=== PATIENT | male | born 1980 | race Two or more races ===

== ENCOUNTER 2020-05-12 11:31 | Outpatient (REF) | payer OTHER, SELFPAY ==
[2020-05-12 13:36] LABS: Alanine Aminotransferase 22 U/L (0-40); Albumin Level 4.5 g/dL (3.5-5.0); Alkaline Phosphatase 97 U/L (39-117); Anion Gap 15 (12-20); Aspartate Amino Transferase 20 U/L (5-37); Bilirubin Total 0.7 mg/dL (0.0-1.0); Blood Urea Nitrogen 10 mg/dL (9-16); Calcium 9.4 mg/dL (8.4-10.2); Carbon Dioxide 23 mmol/L (22-29); Chloride 102 mmol/L (96-108); Cholesterol 302 mg/dL; Estimated Glomerular Filt Rate > 60; Glucose Fasting 87 mg/dL (60-99); HDL Cholesterol 45 mg/dL; Lipase 78 U/L (8-78); Potassium 4.5 mmol/l (3.3-5.1); Sodium 135 mmol/L (135-145); Total Protein 7.9 g/dL (6.5-8.0); Triglycerides 566 mg/dL
[2020-05-12 13:58] LABS: TSH reflex Free T4 0.63 mIU/mL (0.32-4.0)
[2020-05-17 19:09] LABS: Testosterone, Free 104.8 pg/mL (35.0-155.0); Testosterone, Total 337 ng/dL (250-1100)
== END 2020-05-12 11:32 | disposition home or self-care (01) ==
LOC: HO.LAB 11:31
PROVIDERS: PCP Physician Assistant; Visit Provider Physician Assistant
DX: R68.82 Decreased libido (principal); E78.1 Pure hyperglyceridemia; Z87.19 Personal history of other diseases of the digestive system
CPT/HCPCS: 80053; 80061; 83690; 84402; 84403; 84443

== ENCOUNTER 2020-06-10 06:28 | Outpatient (REF) | payer OTHER, SELFPAY | END 2020-06-10 06:29 | disposition home or self-care (01) | LOC: HO.LAB 06:28 | PROVIDERS: PCP Physician Assistant; Visit Provider Internal Medicine | DX: Z20.828 Contact with and (suspected) exposure to other viral communicable diseases (principal) | CPT/HCPCS: C9803; U0003 ==

== ENCOUNTER 2020-08-02 06:33 | Outpatient (REF) | payer OTHER, SELFPAY | END 2020-08-02 06:34 | disposition home or self-care (01) | LOC: HO.LAB 06:33 | PROVIDERS: Visit Provider Internal Medicine | DX: Z20.822 Contact with and (suspected) exposure to COVID-19 (principal) | CPT/HCPCS: 36415; C9803; U0003; U0005 ==

== ENCOUNTER 2020-09-21 08:16 | Outpatient (REF) | payer OTHER, SELFPAY ==
[2020-09-21 10:14] LABS: Hematocrit 41.1 % (42-52); Hemoglobin 13.7 g/dl (14.0-18.0); Mean Corpuscular HGB Conc 33.3 g/dl (31.0-36.0); Mean Corpuscular Hemoglobin 25.9 pg (27.0-33.0); Mean Corpuscular Volume 77.7 fL (80-98); Mean Platelet Volume 9.7 fL (9.4-12.4); Platelet Count 325 X10*3/uL (160-400); Red Blood Count 5.29 X10*6/uL (4.60-5.80); Red Cell Distribution Width 13.1 % (11.0-16.0); White Blood Count 6.3 X10*3/uL (4.8-10.8)
[2020-09-21 10:56] LABS: Glucose Urine UA NEG (NEG); Leukocyte Esterase Urine NEG (NEG); Nitrite Urine NEG (NEG); PH 5.5 (5.0-8.0); Specific Gravity - Urine >= 1.030 (1.005-1.025); Urine Blood TRACE (NEG); Urine Ketones NEG (NEG); Urine Protein NEG (NEG-TRACE)
[2020-09-21 11:02] LABS: Appearance Urine HAZY; Color Urine YELLOW
[2020-09-21 11:03] LABS: Triglycerides 1888 mg/dL
[2020-09-21 11:09] LABS: Alanine Aminotransferase 27 U/L (0-40); Albumin Level 4.1 g/dL (3.5-5.0); Alkaline Phosphatase 91 U/L (39-117); Anion Gap 17 (12-20); Aspartate Amino Transferase 25 U/L (5-37); Bilirubin Total 0.6 mg/dL (0.0-1.0); Blood Urea Nitrogen 10 mg/dL (9-16); Carbon Dioxide 20 mmol/L (22-29); Chloride 102 mmol/L (96-108); Cholesterol 389 mg/dL; Estimated Glomerular Filt Rate > 60; Glucose Fasting 99 mg/dL (60-99); HDL Cholesterol 34 mg/dL; Potassium 4.1 mmol/L (3.3-5.1); Sodium 135 mmol/L (135-145); Total Protein 7.7 g/dL (6.5-8.0)
[2020-09-21 11:09] LABS: Mucus Urine TRACE /LPF; RBC Urine 0-2 /HPF (0); Squamous Epithelial Cell Urine TRACE /LPF; WBC Urine 0 /HPF (0-4)
== END 2020-09-21 08:17 | disposition home or self-care (01) ==
LOC: HO.10HDL 08:16
PROVIDERS: Visit Provider Physician Assistant
DX: E78.1 Pure hyperglyceridemia (principal)
CPT/HCPCS: 36415; 80053; 80061; 81001; 81003; 85027

== ENCOUNTER 2020-10-04 19:32 | Emergency (ER) | payer OTHER, SELFPAY ==
--- NOTE | ~2020-10-04 | CT_ITS ---
EXAMINATION: CT ABDOMEN AND PELVIS WITH CONTRAST CLINICAL INFORMATION: Abdominal pain COMPARISON: Multiple priors, most recently a CT dated 02/09/2020. TECHNIQUE: Multidetector volumetric images were obtained from the superior aspect of the liver through the pubic symphysis following administration 74 mL of Omnipaque 350 intravenous contrast. Sagittal and coronal reformatted images were obtained on the technologist's workstation. Oral contrast: No This CT examination was performed using dose optimization techniques as appropriate, variously including the following: *Automated exposure control *Adjustment of mA and/or kV according to patient size (this includes techniques or standardized protocols for targeted exams where dose is matched to indication/reason for exam; i.e. extremities or head) *Use of iterative reconstruction technique DLP: 685 mGy-cm FINDINGS: LUNG BASES: The visualized lung bases are unremarkable. LIVER, GALLBLADDER, AND BILIARY TREE: Liver normal in size, contour and morphology. Diffuse hepatic steatosis suspected. No focal liver lesions. No intra or extrahepatic biliary dilatation. Gallbladder unremarkable. PANCREAS: Peripancreatic fat stranding present about the pancreatic head, neck and body. No peripancreatic fluid collection or acute necrotic collection. SPLEEN: Unremarkable. ADRENAL GLANDS: Unremarkable. KIDNEYS AND URETERS: The kidneys are normal in size, shape, and attenuation. There are couple cyst within the right kidney, subcentimeter in size, both stable. No hydronephrosis, hydroureter, or calculi seen. No perinephric stranding. BLADDER: Unremarkable. GASTROINTESTINAL TRACT: Total colectomy. Right lower quadrant end ileostomy. Small bowel small bowel anastomosis present within the right upper quadrant. No intestinal obstruction or inflammation. Stomach unremarkable. ABDOMINAL WALL: No significant hernia is appreciated. LYMPH NODES: Normal. VASCULAR: Infrarenal trapease IVC filter. Patent venous structures. PELVIC VISCERA: Unremarkable. OSSEOUS STRUCTURES: Unremarkable. CT/CT abdomen pelvis w con IMPRESSION: * Acute pancreatitis. No peripancreatic fluid collection or acute necrotic collection. * Hepatic steatosis. * Total colectomy. No intestinal obstruction or inflammation.
[2020-10-04 20:26] VITALS: BP 142/82; PULSE 77; RESP 16; TEMP 36.8; O2SAT 99; BMI 31.2
[2020-10-04 20:45] LABS: MANUAL DIFF FLAG NO
[2020-10-04 22:34] LABS: Basophils Percent Auto 0.3 % (0-2); Eosinophils Absolute Auto 0.2 X10*3/uL (0.0-0.4); Eosinophils Percent Auto 1.7 % (0-4); Hematocrit 35.8 % (42-52); Hemoglobin 12.2 g/dl (14.0-18.0); Imm Gran Abs Auto 0.06 X10*3/uL (0.00-0.03); Imm Gran Pct Auto 0.5 % (0.0-0.4); Lymphocytes Absolute Auto 3.1 X10*3/uL (1.2-4.9); Lymphocytes Percent Auto 24.6 % (20-40); Mean Corpuscular HGB Conc 34.1 g/dl (31.0-36.0); Mean Corpuscular Hemoglobin 26.3 pg (27.0-33.0); Mean Corpuscular Volume 77.2 fL (80-98); Mean Platelet Volume 10.7 fL (9.4-12.4); Monocytes Absolute Auto 0.9 X10*3/uL (0.1-1.2); NRBC Pct Auto 0.2 /100WBC (0.0-0.2); Neutrophils Absolute Auto 8.2 X10*3/uL (2.0-8.3); Neutrophils Percent Auto 65.9 % (45-73); Platelet Count 355 X10*3/uL (160-400); Red Blood Count 4.64 X10*6/uL (4.60-5.80); White Blood Count 12.5 X10*3/uL (4.8-10.8)
[2020-10-04 23:13] LABS: Glucose Urine UA NEG (NEG); Leukocyte Esterase Urine NEG (NEG); Nitrite Urine NEG (NEG); PH 5.5 (5.0-8.0); Specific Gravity - Urine >= 1.030 (1.005-1.025); Urine Blood TRACE (NEG); Urine Ketones NEG (NEG); Urine Protein NEG (NEG-TRACE)
[2020-10-04 23:20] LABS: Appearance Urine CLEAR; Color Urine DARK YELLOW
[2020-10-04 23:42] LABS: Mucus Urine TRACE /LPF; RBC Urine 0-2 /HPF (0); Squamous Epithelial Cell Urine TRACE /LPF; WBC Urine 0-2 /HPF (0-4)
[2020-10-04 23:47] VITALS: BP 130/76; PULSE 72; RESP 16; TEMP 37.2; O2SAT 97
[2020-10-05 00:01] VITALS: RESP 20
[2020-10-05] MEDS: ondansetron HCL 4 MG/2 ML VIAL IVPUSH ×2 (00:01→06:16)
[2020-10-05] MEDS: Morphine Sulfate 4 MG/ML CARTRIDGE IVPUSH (00:01)
[2020-10-05] MEDS: 0.9 % Sodium Chloride 1,000 ML 999 ML IVCONT (00:02)
--- NOTE | 2020-10-05 00:09 | PC.NURSE ---
IV established, pt medicated per AUG. Labs redrawn by this RN. Pt CAOx4, speaking full sentences, reports right sided abdominal pain radiating across abdomen to left side with nausea. Pt also c/o nausea with decreased PO, denies vomiting/diarrhea. Pt reports a history of pancreatitis, states his lipase was elevated over 1000 last week. VSS at this time, awaiting lab results. This RN was never notified that pt needed to be redrawn. Call sun within reach, continue to monitor.
[2020-10-05 00:18] LABS: Delay - Chemistry DELAY
--- NOTE | 2020-10-05 00:42 | PC.NURSE ---
This RN calling lab inquiring as to pending lab work. Per lab, its running now.
--- NOTE | 2020-10-05 00:44 | ED_ITS ---
HPI - Abdominal Pain General Chief Complaint: Abdominal Pain Stated Complaint: ABD PAIN Time Seen by Provider: 10/04/20 23:54 History of Present Illness HPI narrative: Patient is a 40-year-old male presents today with having abdominal pain mainly in the epigastric area. There is nausea. There is no vomiting. Patient feels generalized malaise. He had some pork ribs yesterday. And then subsequently the pain started. Patient claims that multiple episodes of pancreatitis in the past. This feels exactly the same. It radiates to the side into the back. No cough no congestion or upper respiratory symptoms. Patient from home. Pain is 8/10. Patient's stool was pasty. No diarrhea noted. No change in smell or taste. No history kidney stones. Related Data Home Medications Medication Instructions Recorded Confirmed clonazepam 1 tab PO BEDTIME PRN 10/05/20 10/05/20 fluticasone propionate 1 spray INTRANASAL BID 10/05/20 10/05/20 gemfibrozil 1 tab PO BID 10/05/20 10/05/20 hydroxyzine HCl 1 tab PO BEDTIME 10/05/20 10/05/20 omeprazole 1 cap PO DAILY 10/05/20 10/05/20 Allergies Allergy/AdvReac Type Severity Reaction Status Date / Time No Known Allergies Allergy Verified 10/04/20 20:25 [No Known Allergies*] Review of Systems Review of Systems Constitutional: No Weight loss, No Fever, No Chills, No Night Sweats, No Fatigue, No Malaise ENT/Mouth: No Hearing loss, No Ear Pain, No Nasal Congestion, No Sinus Pain, No Hoarseness, No sore throat, No Rhinorrhea, No Swallowing Difficulty Eyes: No Eye Pain, No Swelling, No Redness, No Foreign Body, No Discharge, No Vision Changes Cardiovascular: No Chest Pain, No SOB, No Dyspnea on Exertion, No Orthopnea, No Edema, No Palpitations Respiratory: No Cough, No Sputum, No Wheezing, No Smoke Exposure, No Dyspnea Gastrointestinal: Positive nausea positive abdominal pain Genitourinary: no irregular bleeding, No Dysuria, No Urinary Frequency, No Hematuria, No Urinary Incontinence, No Urgency, No Flank Pain, No Urinary Flow Changes, No Hesitancy Musculoskeletal: No joint pain, No Myalgias, No Joint Swelling Skin: No Skin Lesions, No rash Neuro: No Weakness, No Numbness, No Paresthesias, No Loss of Consciousness, No Dizziness, No Headache Psych: No Anxiety/Panic, No Depression, No SI/HI/AH/VH, No Social Issues, Heme/Lymph: No Bruising, No Bleeding,No Lymphadenopathy Endocrine: No Polyuria, No Polydipsia, No Temperature Intolerance Physical Exam Vital Signs: Vital Signs: Last Vital Signs Temp 98.5 F 10/05/20 02:00 Pulse 68 10/05/20 02:00 Resp 18 10/05/20 02:00 BP 107/60 10/05/20 02:00 Pulse Ox 97 10/05/20 02:00 Body Mass Index 31.2 Appearance: Alert. Oriented X3. No acute distress. Eyes: Pupils equal, round and reactive to light. ENT: Pharynx normal. Neck: Normal inspection. Neck supple. No lymph nodes noted. No crepitus CVS: Normal heart rate and rhythm. Pulses normal. Normal S1 and S2 Respiratory: No respiratory distress. Breath sounds normal. No Wheezing. No rales Abdomen: Soft and nontender. No rigidity. No distention. good BS x4 Skin: Skin warm and dry. Normal skin color. Normal skin turgor. Extremities: No lower extremity edema. Neurovascular intact to all extremities. No Lacerations. No Rash Neuro: Oriented X 3. No motor deficit. No sensory deficit. Moving all extermities. No slurred speech MDM - Abdominal Pain MDM Narrative Medical decision making narrative: Patient's lipase elevated. White count is 12. CT scan of the abdomen did not show any evidence of pseudocyst. Will admit for pain control. Pancreatitis. Patient denies any alcohol. Had history of similar episodes from eating too much fatty material. Patient claims that he ate a couple ribs yesterday. In stable condition. Lab Data Result diagrams: 10/04/20 20:37 10/04/20 23:47 Labs: Lab Results 10/04/20 10/04/20 10/04/20 Range/Units 20:37 20:38 23:47 WBC 12.5 H (4.8-10.8) X10*3/uL RBC 4.64 (4.60-5.80) X10*6/uL Hgb 12.2 L (14.0-18.0) g/dl Hct 35.8 L (42-52) % MCV 77.2 L (80-98) fL MCH 26.3 L (27.0-33.0) pg MCHC 34.1 (31.0-36.0) g/dl RDW 13.0 (11.0-16.0) % Plt Count 355 (160-400) X10*3/uL MPV 10.7 (9.4-12.4) fL Immature Gran % (Auto) 0.5 H (0.0-0.4) % Neut % (Auto) 65.9 (45-73) % Lymph % (Auto) 24.6 (20-40) % [place] % (Auto) 7.0 (2-11) % Eos % (Auto) 1.7 (0-4) % Baso % (Auto) 0.3 (0-2) % Lymph # (Auto) 3.1 (1.2-4.9) X10*3/uL [place] # (Auto) 0.9 (0.1-1.2) X10*3/uL Eos # (Auto) 0.2 (0.0-0.4) X10*3/uL Baso # (Auto) 0.0 (0.0-0.2) X10*3/uL Abs Immat Gran (auto) 0.06 H (0.00-0.03) X10*3/uL Absolute Neuts (auto) 8.2 (2.0-8.3) X10*3/uL Absolute Nucleated RBC 0.020 H (0.0-0.012) X10*3/uL Nucleated RBC % (auto) 0.2 (0.0-0.2) /100WBC Hold Blue Top SEE NOTE Sodium 135 (135-145) mmol/L Potassium 4.3 (3.3-5.1) mmol/L Chloride 103 (96-108) mmol/L Carbon Dioxide 21 L (22-29) mmol/L Anion Gap 15 (12-20) BUN 11 (9-16) mg/dL Creatinine 1.00 (0.5-1.4) mg/dL Estim Creat Clear Calc 115.7 Estimated GFR > 60 Random Glucose 103 (60-115) mg/dL Calcium 9.0 (8.4-10.2) mg/dL Total Bilirubin 0.7 (0.0-1.0) mg/dL AST 43 H D (5-37) U/L ALT 46 H (0-40) U/L Alkaline Phosphatase 108 (39-117) U/L Total Protein 7.8 (6.5-8.0) g/dL Albumin 4.3 (3.5-5.0) g/dL Lipase 452 H (8-78) U/L Specimen Comment Urine Color Urine Appearance Urine pH (5.0-8.0) Ur Specific [place] (1.005-1.025) Urine Protein (NEG-TRACE) MG/DL Urine Glucose (UA) (NEG) MG/DL Urine Ketones (NEG) MG/DL Urine Blood (NEG) Urine Nitrite (NEG) Ur Leukocyte Esterase (NEG) Urine RBC (0) /HPF Urine WBC (0-4) /HPF Ur Squamous Epith Cells /LPF [place] Biurate Crystals /LPF Urine Bacteria /LPF Urine Mucus /LPF 10/04/20 10/05/20 Range/Units Unknown 00:17 WBC (4.8-10.8) X10*3/uL RBC (4.60-5.80) X10*6/uL Hgb (14.0-18.0) g/dl Hct (42-52) % MCV (80-98) fL MCH (27.0-33.0) pg MCHC (31.0-36.0) g/dl RDW (11.0-16.0) % Plt Count (160-400) X10*3/uL MPV (9.4-12.4) fL Immature Gran % (Auto) (0.0-0.4) % Neut % (Auto) (45-73) % Lymph % (Auto) (20-40) % [place] % (Auto) (2-11) % Eos % (Auto) (0-4) % Baso % (Auto) (0-2) % Lymph # (Auto) (1.2-4.9) X10*3/uL [place] # (Auto) (0.1-1.2) X10*3/uL Eos # (Auto) (0.0-0.4) X10*3/uL Baso # (Auto) (0.0-0.2) X10*3/uL Abs Immat Gran (auto) (0.00-0.03) X10*3/uL Absolute Neuts (auto) (2.0-8.3) X10*3/uL Absolute Nucleated RBC (0.0-0.012) X10*3/uL Nucleated RBC % (auto) (0.0-0.2) /100WBC Hold Blue Top Sodium (135-145) mmol/L Potassium (3.3-5.1) mmol/L Chloride (96-108) mmol/L Carbon Dioxide (22-29) mmol/L Anion Gap (12-20) BUN (9-16) mg/dL Creatinine (0.5-1.4) mg/dL Estim Creat Clear Calc Estimated GFR Random Glucose (60-115) mg/dL Calcium (8.4-10.2) mg/dL Total Bilirubin (0.0-1.0) mg/dL AST (5-37) U/L ALT (0-40) U/L Alkaline Phosphatase (39-117) U/L Total Protein (6.5-8.0) g/dL Albumin (3.5-5.0) g/dL Lipase (8-78) U/L Specimen Comment DELAY Urine Color DARK YELLOW Urine Appearance CLEAR Urine pH 5.5 (5.0-8.0) Ur Specific [place] >= 1.030 H (1.005-1.025) Urine Protein NEG (NEG-TRACE) MG/DL Urine Glucose (UA) NEG (NEG) MG/DL Urine Ketones NEG (NEG) MG/DL Urine Blood TRACE (NEG) Urine Nitrite NEG (NEG) Ur Leukocyte Esterase NEG (NEG) Urine RBC 0-2 (0) /HPF Urine WBC 0-2 (0-4) /HPF Ur Squamous Epith Cells TRACE /LPF [place] Biurate Crystals TRACE /LPF Urine Bacteria NONE /LPF Urine Mucus TRACE /LPF Discharge Plan Discharge Clinical Impression: Pancreatitis Patient Disposition: Admitted As Inpatient [facility] Past Medical History Attestation statement: The following information was validated with the patient. Medical History H/O acute pancreatitis H/O deep venous thrombosis Presence of IVC filter Surgical History History of ileostomy History of resection of rectum Family History Family History Father CVD (cardiovascular disease) Mother Hypertension Diabetes Maternal Grandmother Liver cancer Maternal Grandfather CVD (cardiovascular disease) Family/Other Diabetes Social History Social History Alcohol intake: never Smoking Status: Never smoker Advance Directives: No Advance Directives Information Provided: Yes
[2020-10-05] MEDS: HYDROmorphone HCl 1 MG/ML SYRINGE IVPUSH (00:49)
[2020-10-05 00:50] LABS: Alanine Aminotransferase 46 U/L (0-40); Albumin Level 4.3 g/dL (3.5-5.0); Alkaline Phosphatase 108 U/L (39-117); Anion Gap 15 (12-20); Aspartate Amino Transferase 43 U/L (5-37); Bilirubin Total 0.7 mg/dL (0.0-1.0); Blood Urea Nitrogen 11 mg/dL (9-16); Carbon Dioxide 21 mmol/L (22-29); Chloride 103 mmol/L (96-108); Creatinine Clr Calc Pharmacy 115.7; Estimated Glomerular Filt Rate > 60; Glucose Random 103 mg/dL (60-115); Potassium 4.3 mmol/L (3.3-5.1); Sodium 135 mmol/L (135-145); Total Protein 7.8 g/dL (6.5-8.0)
--- NOTE | 2020-10-05 00:53 | PC.NURSE ---
Medicated per MAR, awaiting CT.
[2020-10-05 01:00] VITALS: BP 115/70; PULSE 67; RESP 16; TEMP 36.6; O2SAT 98
[2020-10-05 01:02] LABS: Lipase 452 U/L (8-78)
--- NOTE | 2020-10-05 01:34 | PC.NURSE ---
Off to CT on hospital bed.
[2020-10-05] MEDS: iohexoL 350 MG/ML 75 ML INFUS..BTL IV (01:36)
--- NOTE | 2020-10-05 01:42 | PC.NURSE ---
Pt returns from CT, resting in bed at this time, awaiting results.
[2020-10-05 02:00] VITALS: BP 107/60; PULSE 68; RESP 18; TEMP 36.9; O2SAT 97
[2020-10-05] MEDS: HYDROmorphone HCl 0.5 MG/0.5 ML SYRINGE IVPUSH ×2 (03:55→06:15)
[2020-10-05 04:00] VITALS: BP 112/68; PULSE 75; RESP 16; TEMP 36.6; O2SAT 97
[2020-10-05 04:36] LABS: Triglycerides 4173 mg/dL
[2020-10-05 04:55] LABS: IDNOW Serial# 9DD0AD1C
[2020-10-05 04:56] LABS: COVID-19 Test Negative (Negative)
--- NOTE | 2020-10-05 05:00 | PC.NURSE ---
@[phone] DR BERNSTEIN REQUESTS CALL OUT TO [facility] PT TX LINE [phone] CLARIBEL ANSWERS,TAKES PT INFO, CALL BACK NUMBER AND SAYS SOMEONE WILL CALL DR BERNSTEIN BACK SOON.
--- NOTE | 2020-10-05 05:10 | PC.NURSE ---
@ [phone] SURENDRA CALLS BACK FROM [facility] PT TX LINE TO SAY THEY ARE CLOSED TO NON BS ICU PT'S DR BERNSTEIN AWARE @ SAME TIME
--- NOTE | 2020-10-05 05:22 | PC.NURSE ---
@[phone] CALL PLACED TO [facility] TO SEE IF THEY HAD AN ICU BED AVAILABLE FOR THIS PT NURSING [employer] GIVES ICU PHONE NUMBER [phone] CHARGE NURSE YAO ANSWERS, TAKES CALL BACK INFO AND SAYS HE WILL HAVE [employer] WILL CALL US BACK SOON
--- NOTE | 2020-10-05 05:33 | PC.NURSE ---
@[phone] RETURN CALL FROM [facility] FROM [facility] ICU ASKS TO SPEAK WITH DR BERNSTEIN, DR BERNSTEIN TAKES OVER CALL RIGHT AWAY.
--- NOTE | 2020-10-05 05:39 | PC.NURSE ---
@3970 [facility] FROM [facility] ICU CALLS BACK AND SPEAKS WITH DR BERNSTEIN ACCEPT THIS PT TO ICU @ [facility]
[2020-10-05] MEDS: Insulin Regular/NS 100 UNIT/100 ML PLAST..BAG IVCONT (05:51)
[2020-10-05] MEDS: Dextrose 5 % and 0.45 % NaCl 1,000 ML 125 ML IVCONT (05:51)
[2020-10-05 06:16] VITALS: BP 124/76; PULSE 81; RESP 16; O2SAT 98
--- NOTE | 2020-10-05 06:16 | PC.NURSE ---
REPORT GIVEN TO TAI SAMAYOA AT [facility] ICU.
[2020-10-05 06:19] LABS: Glucose, Whole Blood 113 mg/dL (60-115)
--- NOTE | 2020-10-05 06:32 | PC.NURSE ---
PT TRANSPORTED TO [facility] ICU BY EMS. PT ON AN INSULIN DRIP AND WE DO NOT HAVE ANY ICU BEDS AVAILABLE.
== END 2020-10-05 07:05 | disposition short-term general hospital (02) ==
PROVIDERS: Emergency Provider Emergency Medicine Emergency Medical Services; PCP Physician Assistant
DX: K85.30 Drug induced acute pancreatitis without necrosis or infection (principal); E78.3 Hyperchylomicronemia; Z86.718 Personal history of other venous thrombosis and embolism
CPT/HCPCS: 36415; 74177; 80053; 81001; 82947; 83690; 84478; 85025; 87635; 96361; 96365; 96368; 96374; 96375; 96376; 99285; 99291; J1170; J2270; J2405; Q9967

== ENCOUNTER → 2020-10-14 13:39 | Outpatient (BNVA) | payer OTHER, SELFPAY | PROVIDERS: PCP Physician Assistant; Visit Provider Internal Medicine Cardiovascular Disease | DX: E78.1 Pure hyperglyceridemia (principal); Z95.828 Presence of other vascular implants and grafts; Z79.899 Other long term (current) drug therapy | CPT/HCPCS: 93005; 99212 ==

== ENCOUNTER 2020-10-20 08:50 | Outpatient (REF) | payer OTHER, SELFPAY ==
[2020-10-20 09:06] LABS: COVID-19 Test Negative (Negative); IDNOW Serial# 55D5AD1C
== END 2020-10-20 08:51 | disposition home or self-care (01) ==
LOC: HO.LAB 08:50
PROVIDERS: Visit Provider Internal Medicine
DX: Z20.822 Contact with and (suspected) exposure to COVID-19 (principal)
CPT/HCPCS: 36415; 87635; C9803

== ENCOUNTER 2020-12-01 14:52 | Outpatient (REF) | payer OTHER, SELFPAY ==
[2020-12-01 17:25] LABS: Cholesterol 226 mg/dL; HDL Cholesterol 44 mg/dL; Triglycerides 686 mg/dL
[2020-12-01 17:45] LABS: Vitamin D 25-OH Total 24.4 ng/mL (>30)
[2020-12-01 18:27] LABS: Vitamin B12 169 pg/mL (200-900)
[2020-12-02 09:46] LABS: LDL Cholesterol Direct 131 mg/dL (<100)
[2020-12-03 23:01] LABS: Zinc 54 mcg/dL (60-130)
== END 2020-12-01 14:53 | disposition home or self-care (01) ==
LOC: HO.LAB 14:52
PROVIDERS: PCP Physician Assistant; Visit Provider Internal Medicine Endocrinology, Diabetes & Metabolism
DX: E78.1 Pure hyperglyceridemia (principal); E55.9 Vitamin D deficiency, unspecified; E53.8 Deficiency of other specified B group vitamins; E60 Dietary zinc deficiency; Z79.899 Other long term (current) drug therapy
CPT/HCPCS: 36415; 80061; 82306; 82607; 83721; 84630; 99212

== ENCOUNTER 2020-12-18 12:35 | Emergency (ER) | payer OTHER, SELFPAY ==
--- NOTE | ~2020-12-18 | CT_ITS ---
EXAMINATION: CT ABDOMEN AND PELVIS WITH CONTRAST CLINICAL INFORMATION: Abdominal pain COMPARISON: CT abdomen and pelvis 10/05/2020 TECHNIQUE: Multidetector volumetric images were obtained from the superior aspect of the liver through the pubic symphysis following administration 85 mL of Omnipaque 350 intravenous contrast. Sagittal and coronal reformatted images were obtained on the technologist's workstation. Oral contrast: No This CT examination was performed using dose optimization techniques as appropriate, variously including the following: *Automated exposure control *Adjustment of mA and/or kV according to patient size (this includes techniques or standardized protocols for targeted exams where dose is matched to indication/reason for exam; i.e. extremities or head) *Use of iterative reconstruction technique DLP: 871 mGy-cm FINDINGS: LUNG BASES: The visualized lung bases are unremarkable. LIVER, GALLBLADDER, AND BILIARY TREE: The liver is normal in size, shape, and hypo-attenuation. No focal hepatic lesion or biliary ductal dilatation is present. The gallbladder is unremarkable with no evidence of radiopaque gallstones, gallbladder wall thickening, or obvious pericholecystic inflammatory changes. PANCREAS: Pancreas is homogeneous in density. The peripancreatic fat borders are normal. Previously its visualized fatty stranding is improved. SPLEEN: The spleen is normal size and density. There is a punctate 5 mm hypodensity in the spleen question spinal cyst is stable ADRENAL GLANDS: Unremarkable. KIDNEYS AND URETERS: The kidneys are normal in size, shape, and attenuation. No hydronephrosis, hydroureter, or calculi seen. No perinephric stranding. There is a 1.2 cm hypodensity in upper pole and 7 mm hypodensity lower pole right kidney. BLADDER: Unremarkable. GASTROINTESTINAL TRACT: Patient has undergone total colectomy with a right ileostomy noted. There is dilated right lower quadrant ileostomy and multiple dilated ileal loops with air-fluid levels in lower abdomen the digital loops are normal caliber. There is no mural thickening or fat stranding seen. ABDOMINAL WALL: No significant hernia is appreciated. LYMPH NODES: Normal. VASCULAR: The abdominal aorta and the common iliac arteries are normal caliber. There is an infrarenal IVC TrapEase filter PELVIC VISCERA: Unremarkable. OSSEOUS STRUCTURES: Unremarkable. CT/CT abdomen pelvis w con IMPRESSION: Total colectomy with right lower quadrant ileostomy. The entire ileostomy and the ileal loops are dilated with air-fluid levels of unknown etiology. There could be narrowing or stenosis at the ileostomy opening along the abdominal wall. Correlate clinically. The visualized jejunal loops and the duodenum is normal caliber. Small hypodensity in the spleen and the upper and lower pole right kidney are stable. There is mild hypoattenuation of liver is stable. Peripancreatic fat stranding has completely resolved.
--- NOTE | 2020-12-18 13:28 | ED.ABDPAIN ---
HPI - Abdominal Pain General Chief Complaint: Abdominal Pain Stated Complaint: abd pain Time Seen by Provider: 12/18/20 13:27 Source: patient Mode of arrival: ambulatory Limitations: no limitations History of Present Illness MD elicited complaint: abdominal pain Pertinent past history: other (total colectomy for UC and Crohn's / pancreatitis in the past related to triglycerides) Onset (ago): day(s) (started this AM) Pain Consistency: constant Location: other (R abdomen around his stoma) Severity: moderate Quality: aching, fullness and other (changed bag this AM but feels there is pressure there and he needs to expel more into his ostomy) Radiation: none Exacerbating factors: movement Relieving factors: nothing Context: history of similar episodes Associated symptoms: nausea Related Data Home Medications Medication Instructions Recorded Confirmed clonazepam 1 tab PO BEDTIME PRN 10/05/20 12/01/20 fluticasone propionate 1 spray INTRANASAL BID 10/05/20 12/01/20 omeprazole 1 cap PO DAILY 10/05/20 12/01/20 Previous Rx's Medication Instructions Recorded gemfibrozil 600 mg tablet 600 mg PO BID 30 Days #60 tab 12/01/20 omega-3 acid ethyl esters 1 gram 2 cap PO BID 30 Days #120 cap 12/01/20 capsule cholecalciferol (vitamin D3) 125 125 mcg PO DAILY 30 Days #30 cap 12/02/20 mcg (5,000 unit) capsule cyanocobalamin (vitamin B-12) 500 500 mcg SUBLINGUAL DAILY 30 Days 12/02/20 mcg sublingual tablet #30 tab Allergies Allergy/AdvReac Type Severity Reaction Status Date / Time No Known Allergies Allergy Verified 10/04/20 20:25 [No Known Allergies*] Review of Systems Review of Systems Constitutional : No Weight loss, No Fever, No Chills ENT/Mouth : No sore throat, No Rhinorrhea Eyes: No Swelling, No Redness Cardiovascular : No Chest Pain, No SOB, No Edema Respiratory : No Cough, No Sputum, No Wheezing Gastrointestinal : Positive Nausea, no Vomiting, no Diarrhea, positive abdominal Pain, No Hematochezia, No Melena Genitourinary : No Dysuria, No Urinary Frequency, No Hematuria, No Urgency Musculoskeletal : No joint pain, No Myalgias, No Joint Swelling Skin : No Skin Lesions, No rash Neuro : No Weakness, No Numbness, No Dizziness, No Headache Psych : No Anxiety/Panic, No Depression Heme/Lymph: No Bruising, No Lymphadenopathy Endocrine : No Polyuria, No Polydipsia All other systems reviewed and are negative. Physical Exam Vital Signs: Vital Signs: Last Vital Signs Temp 97.8 F 12/18/20 15:43 Pulse 57 12/18/20 15:43 Resp 18 12/18/20 15:43 BP 123/77 12/18/20 15:43 Pulse Ox 97 12/18/20 15:43 Body Mass Index 28.7 Appearance: Alert. Oriented X3. No acute distress. Eyes: Pupils equal, round and reactive to light. ENT: Pharynx normal. Neck: Normal inspection. Neck supple. CVS: Normal heart rate and rhythm. Pulses normal. Respiratory: No respiratory distress. Breath sounds normal. Abdomen: Soft and mild distention near the ostomy site, mild ttp no rebound or guarding, ostomy bag is empty Skin: Skin warm and dry. Normal skin color. Normal skin turgor. Extremities: No lower extremity edema. No calf ttp Neuro: Oriented X 3. No motor deficit. No sensory deficit. Procedures EJ/Peripheral Line Arm L: Time Out Performed: Yes Skin Cleansed in Sterile Fashion: Yes Size (gauge): 20 IV Secured and Dressing Applied: Yes Patient Tolerated Procedure: well Course Course Course Narrative: signed out to Dr. Chavez pending labs and CT scan MDM - Abdominal Pain MDM Narrative Medical decision making narrative: 40 yo male hx of UC/chrohns s/p colectomy with ostomy not on immunotherapy, pancreatitis due to triglycerides, here with 1 day of abdominal pain and nausea he has had some production today at this time labs, IVF, IV dilaudid for pain CT scan for obstruction/pancreatitis dispo per results and findings. Lab Data Result diagrams: 12/18/20 15:20 12/18/20 15:20 Labs: Lab Results 12/18/20 12/18/20 12/18/20 Range/Units 15:20 15:20 15:20 WBC 6.6 (4.8-10.8) X10*3/uL RBC 5.02 (4.60-5.80) X10*6/uL Hgb 12.9 L (14.0-18.0) g/dl Hct 38.9 L (42-52) % MCV 77.5 L (80-98) fL MCH 25.7 L (27.0-33.0) pg MCHC 33.2 (31.0-36.0) g/dl RDW 12.9 (11.0-16.0) % Plt Count 328 (160-400) X10*3/uL MPV 9.6 (9.4-12.4) fL Immature Gran % (Auto) 0.2 (0.0-0.4) % Neut % (Auto) 37.0 L (45-73) % Lymph % (Auto) 47.8 H (20-40) % [place] % (Auto) 9.8 (2-11) % Eos % (Auto) 4.7 H (0-4) % Baso % (Auto) 0.5 (0-2) % Lymph # (Auto) 3.2 (1.2-4.9) X10*3/uL [place] # (Auto) 0.7 (0.1-1.2) X10*3/uL Eos # (Auto) 0.3 (0.0-0.4) X10*3/uL Baso # (Auto) 0.0 (0.0-0.2) X10*3/uL Abs Immat Gran (auto) 0.01 (0.00-0.03) X10*3/uL Absolute Neuts (auto) 2.5 (2.0-8.3) X10*3/uL Absolute Nucleated RBC 0.000 (0.0-0.012) X10*3/uL Nucleated RBC % (auto) 0.0 (0.0-0.2) /100WBC Sodium 137 (135-145) mmol/L Potassium 4.4 (3.3-5.1) mmol/L Chloride 106 (96-108) mmol/L Carbon Dioxide 23 (22-29) mmol/L Anion Gap 12 (12-20) BUN 11 (9-16) mg/dL Creatinine 0.86 (0.5-1.4) mg/dL Estim Creat Clear Calc 129.3 Estimated GFR > 60 Random Glucose 95 (60-115) mg/dL Calcium 9.9 D (8.4-10.2) mg/dL Magnesium 2.0 (1.6-2.6) mg/dL Total Bilirubin 0.5 (0.0-1.0) mg/dL Direct Bilirubin 0.2 (0.0-0.5) mg/dL AST 18 D (5-37) U/L ALT 17 (0-40) U/L Alkaline Phosphatase 90 (39-117) U/L C-Reactive Protein 0.04 (< or = 0.50) mg/dL Total Protein 7.2 (6.5-8.0) g/dL Albumin 4.3 (3.5-5.0) g/dL Lipase 64 (8-78) U/L Discharge Plan Discharge Clinical Impression: Abdominal pain Qualifiers: Abdominal location: periumbilical Qualified Code(s): R10.33 - Periumbilical pain Prescriptions: No Action cholecalciferol (vitamin D3) 125 mcg (5,000 unit) capsule 125 mcg PO DAILY 30 Days Qty: 30 RF: 6 cyanocobalamin (vitamin B-12) 500 mcg tablet, sublingual 500 mcg sublingual DAILY 30 Days Qty: 30 RF: 6 clonazepam 1 mg tablet 1 tab PO BEDTIME PRN (Reason: Anxiety) RF: 0 omeprazole 40 mg capsule,delayed release(DR/EC) 1 cap PO DAILY RF: 0 fluticasone propionate 50 mcg/actuation spray,suspension 1 spray intranasal BID RF: 0 gemfibrozil 600 mg tablet 600 mg PO BID 30 Days Qty: 60 RF: 6 omega-3 acid ethyl esters 1 gram capsule 2 cap PO BID 30 Days Qty: 120 RF: 6 PMFSH Past Medical History Attestation statement: The following information was validated with the patient. Medical History B12 deficiency H/O acute pancreatitis H/O deep venous thrombosis Presence of IVC filter Vitamin D deficiency Zinc deficiency Surgical History History of ileostomy History of resection of rectum Family History Family History Father CVD (cardiovascular disease) Mother Hypertension Diabetes Maternal Grandmother Liver cancer Maternal Grandfather CVD (cardiovascular disease) Family/Other Diabetes Social History Social History Alcohol intake: never Advance Directives: Yes Advance Directives Information Provided: Yes Advance Directives on File: No
[2020-12-18 13:29] VITALS: BP 124/78; PULSE 77; RESP 16; TEMP 36.9; O2SAT 99; BMI 28.7
--- NOTE | 2020-12-18 14:50 | PC.NURSE ---
PT IS TOUGH STICK, MULTIPLE STAFF ATTEMPTING FOR IV ACCESS. PHLEBOTOMY CONTACTED FOR BLOOD DRAW.
[2020-12-18 15:29] LABS: MANUAL DIFF FLAG NO
[2020-12-18 15:32] LABS: Basophils Percent Auto 0.5 % (0-2); Eosinophils Absolute Auto 0.3 X10*3/uL (0.0-0.4); Eosinophils Percent Auto 4.7 % (0-4); Hematocrit 38.9 % (42-52); Hemoglobin 12.9 g/dl (14.0-18.0); Imm Gran Abs Auto 0.01 X10*3/uL (0.00-0.03); Imm Gran Pct Auto 0.2 % (0.0-0.4); Lymphocytes Absolute Auto 3.2 X10*3/uL (1.2-4.9); Lymphocytes Percent Auto 47.8 % (20-40); Mean Corpuscular HGB Conc 33.2 g/dl (31.0-36.0); Mean Corpuscular Hemoglobin 25.7 pg (27.0-33.0); Mean Corpuscular Volume 77.5 fL (80-98); Mean Platelet Volume 9.6 fL (9.4-12.4); Monocytes Absolute Auto 0.7 X10*3/uL (0.1-1.2); Monocytes Percent Auto 9.8 % (2-11); Neutrophils Absolute Auto 2.5 X10*3/uL (2.0-8.3); Platelet Count 328 X10*3/uL (160-400); Red Blood Count 5.02 X10*6/uL (4.60-5.80); Red Cell Distribution Width 12.9 % (11.0-16.0); White Blood Count 6.6 X10*3/uL (4.8-10.8)
[2020-12-18 15:43] VITALS: BP 123/77; PULSE 57; RESP 18; TEMP 36.6; O2SAT 97
[2020-12-18 15:55] LABS: Anion Gap 12 (12-20); Blood Urea Nitrogen 11 mg/dL (9-16); C Reactive Protein 0.04 mg/dL (< or = 0.50); Calcium 9.9 mg/dL (8.4-10.2); Carbon Dioxide 23 mmol/L (22-29); Chloride 106 mmol/L (96-108); Creatinine Clr Calc Pharmacy 129.3; Estimated Glomerular Filt Rate > 60; Glucose Random 95 mg/dL (60-115); Potassium 4.4 mmol/L (3.3-5.1); Sodium 137 mmol/L (135-145)
[2020-12-18 15:56] LABS: Alanine Aminotransferase 17 U/L (0-40); Albumin Level 4.3 g/dL (3.5-5.0); Alkaline Phosphatase 90 U/L (39-117); Aspartate Amino Transferase 18 U/L (5-37); Bilirubin Direct 0.2 mg/dL (0.0-0.5); Bilirubin Total 0.5 mg/dL (0.0-1.0); Lipase 64 U/L (8-78); Total Protein 7.2 g/dL (6.5-8.0)
[2020-12-18] MEDS: HYDROmorphone HCl 1 MG/ML SYRINGE IVPUSH ×2 (16:06→18:26)
[2020-12-18] MEDS: ondansetron HCL 4 MG/2 ML VIAL IVPUSH (16:06)
[2020-12-18] MEDS: iohexoL 350 MG/ML 100 ML INFUS..BTL IV (16:25)
[2020-12-18] MEDS: 0.9 % Sodium Chloride 1,000 ML 999 ML IVCONT (18:27)
[2020-12-18 18:38] VITALS: BP 113/67; PULSE 56; RESP 18; TEMP 36.4; O2SAT 96
== END 2020-12-18 20:00 | disposition home or self-care (01) ==
PROVIDERS: Emergency Provider Emergency Medicine; PCP Physician Assistant
DX: R10.33 Periumbilical pain (principal); Z87.19 Personal history of other diseases of the digestive system; Z93.2 Ileostomy status
CPT/HCPCS: 36410; 36415; 74177; 80048; 80076; 83690; 83735; 85025; 86140; 96361; 96374; 96375; 96376; 99284; 99285; J1170; J2405; Q9967

== ENCOUNTER → 2020-12-27 11:14 | Outpatient (BNVA) | payer OTHER, SELFPAY | PROVIDERS: PCP Physician Assistant; Visit Provider Dietitian, Registered | DX: E66.9 Obesity, unspecified (principal); Z68.29 Body mass index [BMI] 29.0-29.9, adult | CPT/HCPCS: 97803 ==

== ENCOUNTER → 2021-02-07 12:59 | Outpatient (BNVA) | payer OTHER, SELFPAY | PROVIDERS: PCP Physician Assistant; Visit Provider Dietitian, Registered | DX: E66.9 Obesity, unspecified (principal); Z68.29 Body mass index [BMI] 29.0-29.9, adult | CPT/HCPCS: 97803 ==

== ENCOUNTER 2021-02-22 10:06 | Outpatient (REF) | payer OTHER, SELFPAY ==
[2021-02-22 13:16] LABS: Hematocrit 41.5 % (42-52); Hemoglobin 13.7 g/dl (14.0-18.0); Mean Corpuscular Hemoglobin 25.5 pg (27.0-33.0); Mean Corpuscular Volume 77.1 fL (80-98); Mean Platelet Volume 9.8 fL (9.4-12.4); Platelet Count 375 X10*3/uL (160-400); Red Blood Count 5.38 X10*6/uL (4.60-5.80); Red Cell Distribution Width 13.1 % (11.0-16.0); White Blood Count 6.5 X10*3/uL (4.8-10.8)
[2021-02-22 13:17] LABS: Glucose Urine UA NEG (NEG); Leukocyte Esterase Urine NEG (NEG); Nitrite Urine NEG (NEG); PH 5.5 (5.0-8.0); Specific Gravity - Urine >= 1.030 (1.005-1.025); Urine Blood NEG (NEG); Urine Ketones NEG (NEG); Urine Protein NEG (NEG-TRACE)
[2021-02-22 13:29] LABS: Appearance Urine CLEAR; Color Urine YELLOW
[2021-02-22 13:46] LABS: Alanine Aminotransferase 19 U/L (0-40); Albumin Level 4.4 g/dL (3.5-5.0); Alkaline Phosphatase 86 U/L (39-117); Aspartate Amino Transferase 16 U/L (5-37); Bilirubin Direct < 0.2 mg/dL (0.0-0.5); Bilirubin Total 0.4 mg/dL (0.0-1.0); Total Protein 7.5 g/dL (6.5-8.0); Triglycerides 369 mg/dL
[2021-02-22 13:51] LABS: Alanine Aminotransferase 17 U/L (0-40); Albumin Level 4.4 g/dL (3.5-5.0); Alkaline Phosphatase 90 U/L (39-117); Anion Gap 12 (12-20); Aspartate Amino Transferase 15 U/L (5-37); Bilirubin Total 0.4 mg/dL (0.0-1.0); Blood Urea Nitrogen 16 mg/dL (9-16); Calcium 9.7 mg/dL (8.4-10.2); Carbon Dioxide 22 mmol/L (22-29); Chloride 107 mmol/L (96-108); Cholesterol 192 mg/dL; Estimated Glomerular Filt Rate > 60; Glucose Fasting 97 mg/dL (60-99); HDL Cholesterol 44 mg/dL; LDL Cholesterol Calculated 75 mg/dl; Lipase 70 U/L (8-78); Potassium 4.4 mmol/L (3.3-5.1); Sodium 137 mmol/L (135-145); Total Protein 7.5 g/dL (6.5-8.0); Triglycerides 369 mg/dL
[2021-02-22 13:54] LABS: Erythrocyte Sedimentation Rate 8 MM/HR (0-15)
[2021-02-22 14:10] LABS: T4 Thyroxine 6.9 ug/dL (4.5-12.0); Thyroid Stimulating Hormone 0.65 uIU/mL (0.32-4.0)
[2021-02-22 14:13] LABS: TSH reflex Free T4 0.72 uIU/mL (0.32-4.0)
== END 2021-02-22 10:07 | disposition home or self-care (01) ==
LOC: HO.10HDL 10:06
PROVIDERS: Internal Medicine Gastroenterology; Visit Provider Physician Assistant
DX: R10.9 Unspecified abdominal pain (principal); R30.0 Dysuria; E78.1 Pure hyperglyceridemia; Z87.19 Personal history of other diseases of the digestive system
CPT/HCPCS: 36415; 80053; 80061; 80076; 81003; 82248; 83690; 84436; 84443; 85027; 85652

== ENCOUNTER → 2021-03-02 10:06 | Outpatient (BNVA) | payer OTHER, SELFPAY | PROVIDERS: PCP Physician Assistant; Visit Provider Internal Medicine | DX: E78.1 Pure hyperglyceridemia (principal); E78.5 Hyperlipidemia, unspecified; E55.9 Vitamin D deficiency, unspecified | CPT/HCPCS: 99212 ==

== ENCOUNTER → 2021-05-23 11:21 | Outpatient (BNVA) | payer OTHER, SELFPAY | PROVIDERS: PCP Physician Assistant; Visit Provider Dietitian, Registered | DX: E66.9 Obesity, unspecified (principal) | CPT/HCPCS: 97803 ==

== ENCOUNTER 2021-08-02 14:36 | Outpatient (REF) | payer OTHER, SELFPAY ==
--- NOTE | ~2021-08-02 | XR_ITS ---
EXAMINATION: XR KNEE, RIGHT CLINICAL INFORMATION: Pain. Trauma. COMPARISON: None TECHNIQUE: 2 views of the right knee. FINDINGS: Bone alignment is normal. No fracture or dislocation is seen. There are 3 large ossified intra-articular loose bodies. Largest measures approximately 3 cm. Joint spaces are otherwise normal. There is no joint effusion. XR/XR knee RT 2V IMPRESSION: 3 large ossified intra-articular loose bodies. The largest measures 3 cm. No fracture or dislocation.
--- NOTE | ~2021-08-02 | XR_ITS ---
EXAMINATION: XR LUMBOSACRAL SPINE CLINICAL INFORMATION: Injury COMPARISON: Previous CT of the abdomen and pelvis most recent November 2020 and KUB January 2019 TECHNIQUE: Three views of the lumbosacral spine. FINDINGS: Bone alignment is normal. No fracture or dislocation is seen. There is evidence of mild degenerative spondylosis at L3-L4 L4-L5 and L5-S1. Disc spaces are normal. There is lower lumbar spine facet arthritis. There is an IVC filter at the L3 and L4 vertebral body levels. This appears broken. This appears unchanged from previous exams. There is a surgical staple line projecting over the right abdomen. There is a right lower quadrant ostomy. There is increasing sclerosis at the sacroiliac joints. XR/XR lumbar spine 2-3V IMPRESSION: Degenerative changes. No fracture or dislocation.
== END 2021-08-02 14:37 | disposition home or self-care (01) ==
LOC: HO.XRAY 14:36
PROVIDERS: PCP Physician Assistant; Visit Provider Physician Assistant
DX: S89.91XA Unspecified injury of right lower leg, initial encounter (principal); S34.109A Unspecified injury to unspecified level of lumbar spinal cord, initial encounter
CPT/HCPCS: 72100; 73560

== ENCOUNTER 2021-08-19 09:34 | Outpatient (REF) | payer OTHER, SELFPAY ==
[2021-08-19 11:47] LABS: Alanine Aminotransferase 17 U/L (0-40); Alkaline Phosphatase 86 U/L (39-117); Anion Gap 12 (12-20); Aspartate Amino Transferase 17 U/L (5-37); Bilirubin Total 0.3 mg/dL (0.0-1.0); Blood Urea Nitrogen 12 mg/dL (9-16); Calcium 9.5 mg/dL (8.4-10.2); Carbon Dioxide 23 mmol/L (22-29); Chloride 107 mmol/L (96-108); Cholesterol 162 mg/dL; Estimated Glomerular Filt Rate > 60; Glucose Random 113 mg/dL (60-115); HDL Cholesterol 33 mg/dL; LDL Cholesterol Calculated 65 mg/dl; Potassium 4.3 mmol/L (3.3-5.1); Sodium 138 mmol/L (135-145); Total Protein 6.9 g/dL (6.5-8.0); Triglycerides 322 mg/dL
[2021-08-19 12:09] LABS: Vitamin D 25-OH Total 23.5 ng/mL (>30)
[2021-08-21 03:02] LABS: LDL Cholesterol Direct 69 mg/dL (<100)
== END 2021-08-19 09:35 | disposition home or self-care (01) ==
LOC: HO.10HDL 09:34
PROVIDERS: Absent Provider Physician Assistant; Visit Provider Internal Medicine
DX: E53.8 Deficiency of other specified B group vitamins (principal); E60 Dietary zinc deficiency; E78.1 Pure hyperglyceridemia; E55.9 Vitamin D deficiency, unspecified; E78.5 Hyperlipidemia, unspecified
CPT/HCPCS: 36415; 80053; 80061; 82306; 83721; 86900; 86901

== ENCOUNTER → 2021-09-05 10:41 | Outpatient (BNVA) | payer OTHER, SELFPAY | PROVIDERS: PCP Physician Assistant; Visit Provider Internal Medicine | DX: E78.1 Pure hyperglyceridemia (principal); E78.5 Hyperlipidemia, unspecified; E55.9 Vitamin D deficiency, unspecified | CPT/HCPCS: 99212 ==

== ENCOUNTER → 2021-10-24 09:58 | Outpatient (BNVA) | payer OTHER, SELFPAY | PROVIDERS: PCP Physician Assistant; Referring Provider Physician Assistant; Visit Provider Internal Medicine Cardiovascular Disease | DX: R07.89 Other chest pain (principal); G47.30 Sleep apnea, unspecified; E78.5 Hyperlipidemia, unspecified; Z95.828 Presence of other vascular implants and grafts | CPT/HCPCS: 93005; 99212 ==

== ENCOUNTER 2021-12-03 22:16 | Inpatient (IN) | payer OTHER, SELFPAY ==
--- NOTE | ~2021-12-03 | US_ITS ---
EXAMINATION: US ABDOMEN LIMITED CLINICAL INFORMATION: Acute pancreatitis. Abdominal pain.. COMPARISON: CT dated 12/04/2021 TECHNIQUE: Real-time imaging of the right upper quadrant abdominal viscera. FINDINGS: PANCREAS: The region of the pancreas is largely obscured by bowel gas. LIVER: Diffusely increased hepatic echogenicity. Along with diminished sonographic through-transmission, this is consistent with steatosis. Areas of focal hypoattenuation near the gallbladder fossa are consistent with focal fatty sparing . No suspicious focal hepatic lesions. There is no intrahepatic biliary duct dilatation seen. GALLBLADDER: Normal. The gallbladder is physiologically distended without evidence of stones, sludge, polyps, wall thickening or pericholecystic fluid. COMMON BILE DUCT: Normal in caliber measuring 0.3 cm in diameter. RIGHT KIDNEY: Normal. No hydronephrosis. No renal calculi or focal parenchymal lesions. The kidney measures 12.6 cm in maximum dimension. FREE FLUID: None. US/US abdomen limited IMPRESSION: Hepatic steatosis. No cholelithiasis or biliary ductal dilatation. Pancreas is obscured by overlying bowel gas.
--- NOTE | ~2021-12-03 | MR_ITS ---
EXAMINATION: MRI ABDOMEN WITH AND WITHOUT CONTRAST CLINICAL INFORMATION: pancreatitis, unclear etiology, eval duct COMPARISON: 12/04/2021 CT scan TECHNIQUE: Multiple routine MRI sequences through the abdomen were obtained on a high-field 1.5Tesla MRI. Pre-and postcontrast images with 10 mL of Gadavist intravenous contrast were obtained. This included a dynamic contrast-enhanced technique. FINDINGS: Lung bases: Bibasilar atelectatic changes Liver: The liver is normal in size, shape, and signal. No suspicious focal hepatic lesions seen. Specifically no suspicious arterial phase enhancing lesions or suspicious washout of contrast on later phases. No biliary ductal dilatation with the common bile duct measuring up to 3 mm maximally. No intraluminal filling defects seen within the common duct. Gallbladder: Gallbladder is unremarkable. No suspicious gallstones or filling defects. No gallbladder wall thickening or pericholecystic inflammatory changes. Pancreas: There is fullness in the region the pancreatic head with mild peripancreatic inflammatory changes in this region with peripancreatic fluid extending inferiorly to the right mesentery in this location. This difficult to accurately measure due to its irregular shape and continuing down the [id number] of this abdomen study on several images. I do not appreciate any pancreatic ductal dilatation or obstructive changes to the pancreatic duct to the ampulla. Pancreas demonstrates homogeneous T1 bright precontrast signal with homogeneous postcontrast enhancement. No evidence for pancreatic necrosis. Spleen: A tiny T2 bright incidental cyst in the upper spleen. Adrenals: Unremarkable Kidneys: Kidneys are normal in size, shape, and signal. Tiny cortical T2 bright cysts bilaterally but no suspicious renal mass lesion seen. No hydronephrosis or perinephric edema. Other: None Vessels: IVC filter noted. MR/MR abdomen wo/w con IMPRESSION: Fullness in the region the pancreatic head with peripancreatic inflammatory changes and fluid consistent with sequela of acute interstitial pancreatitis. I do not appreciate any biliary or pancreatic ductal dilatation. No filling defects seen within the ducts. No gallstones. Chronic appearing changes otherwise.
--- NOTE | ~2021-12-03 | CT_ITS ---
EXAMINATION: CT ABDOMEN AND PELVIS WITHOUT CONTRAST CLINICAL INFORMATION: Abdominal pain COMPARISON: 12/18/2020 TECHNIQUE: Multidetector volumetric imaging was performed from the superior aspect of the liver through the pubic symphysis. Sagittal and coronal reformatted images were obtained on the technologist's workstation. This CT examination was performed using dose optimization techniques as appropriate, variously including the following: *Automated exposure control *Adjustment of mA and/or kV according to patient size (this includes techniques or standardized protocols for targeted exams where dose is matched to indication/reason for exam; i.e. extremities or head) *Use of iterative reconstruction technique DLP: 694 mGy-cm FINDINGS: LUNG BASES: Mild dependent atelectasis in the left lower lobe. LIVER, GALLBLADDER, AND BILIARY TREE: There is hypoattenuation of the liver consistent with steatosis. No intrahepatic biliary ductal dilatation. Gallbladder appears somewhat contracted. PANCREAS: There is stranding adjacent to the head of the pancreas. SPLEEN: Normal size. Subtle subcentimeter hypodensity along the superior posterior spleen is unchanged from prior. ADRENAL GLANDS: Unremarkable. KIDNEYS AND URETERS: No hydronephrosis or calculus bilaterally. BLADDER: Mildly distended with diffuse mural prominence. GASTROINTESTINAL TRACT: Status post colectomy with right lower quadrant ileostomy. No significant bowel dilation is seen to suggest obstruction. Stranding and fluid is present adjacent to bowel loops in the central to right abdomen, and a thick-walled appearance of the duodenum is noted with surrounding stranding. Small bowel suture line noted in the lateral right abdomen. No free air is seen. ABDOMINAL WALL: Right lower quadrant ileostomy. LYMPH NODES: Normal. VASCULAR: Infrarenal IVC filter is present. PELVIC VISCERA: Unremarkable. OSSEOUS STRUCTURES: There is facet arthropathy of the lumbar spine and mild endplate osteophytes. CT/CT abdomen pelvis wo con IMPRESSION: 1. Stranding in the central to right abdomen, which appears overall most prominent near the proximal pancreas and duodenum which also has a thick-walled appearance. This may represent pancreatitis or primary duodenitis in the proper clinical setting. 2. Postoperative changes from prior colectomy with right lower quadrant ileostomy. Some of the inflammatory stranding and fluid extends near bowel loops in the lateral right abdomen, though no evidence for bowel obstruction is seen. 3. Hepatic steatosis.
[2021-12-03 23:43] VITALS: BP 132/84; PULSE 95; RESP 20; TEMP 37.1; O2SAT 99; BMI 28.8
[2021-12-04 00:09] LABS: Basophils Percent Auto 0.1 % (0-2); Eosinophils Absolute Auto 0.2 X10*3/uL (0.0-0.4); Hematocrit 38.2 % (42.0-52.0); Hemoglobin 13.6 g/dl (14.0-18.0); Imm Gran Abs Auto 0.06 X10*3/uL (0.00-0.03); Imm Gran Pct Auto 0.4 % (0.0-0.4); Lymphocytes Absolute Auto 2.2 X10*3/uL (1.2-4.9); Lymphocytes Percent Auto 13.5 % (20-40); MANUAL DIFF FLAG SCAN; Mean Corpuscular HGB Conc 35.6 g/dl (31.0-36.0); Mean Corpuscular Hemoglobin 26.8 pg (27.0-33.0); Mean Corpuscular Volume 75.3 fL (80.0-98.0); Mean Platelet Volume 9.3 fL (9.4-12.4); Monocytes Absolute Auto 1.5 X10*3/uL (0.1-1.2); Monocytes Percent Auto 9.3 % (2-11); Neutrophils Absolute Auto 12.5 x10*3/uL (2.0-8.3); Neutrophils Percent Auto 75.7 % (45-73); Platelet Count 311 X10*3/uL (160-400); Red Blood Count 5.07 X10*6/uL (4.60-5.80); Red Cell Distribution Width 12.8 % (11.0-16.0); SCAN SMEAR FLAG 1; White Blood Count 16.5 X10*3/uL (4.8-10.8)
[2021-12-04 00:22] LABS: Alanine Aminotransferase 41 U/L (0-40); Albumin Level 4.3 g/dL (3.5-5.0); Alkaline Phosphatase 103 U/L (39-117); Anion Gap 15 (12-20); Aspartate Amino Transferase 27 U/L (5-37); Bilirubin Total 1.5 mg/dL (0.0-1.0); Blood Urea Nitrogen 9 mg/dL (9-16); Calcium 9.2 mg/dL (8.4-10.2); Carbon Dioxide 21 mmol/L (22-29); Chloride 103 mmol/L (96-108); Creatinine Clr Calc Pharmacy 100.3; Estimated Glomerular Filt Rate > 60; Glucose Random 111 mg/dL (60-115); Potassium 4.1 mmol/L (3.3-5.1); Sodium 135 mmol/L (135-145); Total Protein 7.8 g/dL (6.5-8.0)
[2021-12-04 00:26] LABS: SLIDE REVIEW VERIFIED
--- NOTE | 2021-12-04 02:06 | ED_ITS ---
HPI - Abdominal Pain General Chief Complaint: Abdominal Pain Stated Complaint: possible pancreatitis Time Seen by Provider: 12/04/21 01:50 History of Present Illness HPI narrative: Patient is a 41-year-old male presents today with having abdominal pain mostly over the epigastric area. History of ulcerative colitis in the past multiple abdominal surgeries status post colostomy. Patient also had a previous history of pancreatitis. Has abdominal pain anemia over the epigastric area. Positive output from the ostomy site. Patient denies any pain on urination. No cough and no congestion or referred symptoms. No diaphoresis. No chest pain. No focal weakness. MD elicited complaint: abdominal pain Related Data Home Medications Medication Instructions Recorded Confirmed clonazepam 1 mg tablet 1 tab PO BEDTIME PRN 10/05/20 10/24/21 omeprazole 40 mg capsule,delayed 40 mg PO DAILY PRN 10/24/21 10/24/21 release Previous Rx's Medication Instructions Recorded omega-3 acid ethyl esters 1 gram 2 cap PO BID 30 Days #120 cap 12/01/20 capsule cyanocobalamin (vitamin B-12) 500 500 mcg SUBLINGUAL DAILY 30 Days 12/02/20 mcg sublingual tablet #30 tab acetaminophen 300 mg-codeine 30 mg 1 tab PO BID PRN 30 Days #10 tab 05/23/21 tablet ibuprofen 800 mg tablet 800 mg PO Q8H 15 Days #45 tab 08/02/21 atorvastatin 40 mg tablet 40 mg PO DAILY 30 Days #30 tab 09/05/21 fenofibrate 160 mg tablet 160 mg PO DAILY 30 Days #30 tab 09/05/21 cholecalciferol (vitamin D3) 50 50 mcg PO DAILY 30 Days #30 cap 09/07/21 mcg (2,000 unit) capsule colostomy-Ileost.set,nonsteril #5 ea 11/02/21 (Premier Colostomy-Ileostomy) fluticasone propionate 50 1 spray INTRANASAL BID #16 ml 11/02/21 mcg/actuation nasal spray,suspension ostomy adhesive (Stomahesive Paste) #56.7 g 11/02/21 ostomy supplies (Skin Prep Wipes) #50 ea 11/02/21 Allergies Allergy/AdvReac Type Severity Reaction Status Date / Time cetirizine [From Zyrtec] AdvReac Mild Nightmare Verified 12/03/21 23:48 lactose AdvReac Unknown Diarrhea Verified 12/03/21 23:48 Review of Systems Review of Systems Positive abdominal pain Yes all other systems are reviewed and are negative [facility] Past Medical History Attestation statement: The following information was validated with the patient. Medical History B12 deficiency H/O acute pancreatitis H/O deep venous thrombosis HLD (hyperlipidemia) Presence of IVC filter Vitamin D deficiency Zinc deficiency Surgical History History of ileostomy History of resection of rectum Family History Family History Father CVD (cardiovascular disease) Mother Hypertension Diabetes Maternal Grandmother Liver cancer Maternal Grandfather CVD (cardiovascular disease) Family/Other Diabetes Social History Social History Housing: Apartment Alcohol intake: never Patient Tobacco Use Status: Former Tobacco user e-Cigarette/Vaping Use: Never Used Advance Directives: No Advance Directives Information Provided: No service: No Current occupational status: disabled Cognitive needs: No Hearing needs: No Vision needs: No Physical Exam ED Vital Signs: Vital Signs - 24 hr 12/03/21 23:43 Temperature 98.8 F Pulse Rate 95 Respiratory Rate 20 Blood Pressure 132/84 Pulse Oximetry 99 BMI result Body Mass Index 28.8 Appearance: Alert. Oriented X3. No acute distress. Eyes: Pupils equal, round and reactive to light. ENT: Pharynx normal. Neck: Normal inspection. Neck supple. No lymph nodes noted. No crepitus CVS: Normal heart rate and rhythm. Pulses normal. Normal S1 and S2 Respiratory: No respiratory distress. Breath sounds normal. No Wheezing. No rales Abdomen: Soft and nontender. No rigidity. No distention. good BS x4 Skin: Skin warm and dry. Normal skin color. Normal skin turgor. Extremities: No lower extremity edema. Neurovascular intact to all extremities. No Lacerations. No Rash Neuro: Oriented X 3. No motor deficit. No sensory deficit. Moving all exte rmities. No slurred speech MDM - Abdominal Pain MDM Narrative Medical decision making narrative: Patient's lipase over 200 consistent with pancreatitis. Given pain medication IV fluids. CT scan of the abdomen is pending. Will admit for further pain management. Currently in stable condition. CT scan showed no obstruction no abscess no perforation. Patient is to be admitted for pancreatitis. In stable condition. Medical Records Attestation: I reviewed the patient's medical records. Lab Data Attestation: I reviewed the patient's lab results. Result diagrams: 12/03/21 23:55 12/03/21 23:55 Labs: Lab Results 12/03/21 12/03/21 Range/Units 23:55 23:55 WBC 16.5 H (4.8-10.8) X10*3/uL RBC 5.07 (4.60-5.80) X10*6/uL Hgb 13.6 L (14.0-18.0) g/dl Hct 38.2 L (42.0-52.0) % MCV 75.3 L (80.0-98.0) fL MCH 26.8 L (27.0-33.0) pg MCHC 35.6 (31.0-36.0) g/dl RDW 12.8 (11.0-16.0) % Plt Count 311 (160-400) X10*3/uL MPV 9.3 L (9.4-12.4) fL Immature Gran % (Auto) 0.4 (0.0-0.4) % Neut % (Auto) 75.7 H (45-73) % Lymph % (Auto) 13.5 L (20-40) % [place] % (Auto) 9.3 (2-11) % Eos % (Auto) 1.0 (0-4) % Baso % (Auto) 0.1 (0-2) % Lymph # (Auto) 2.2 (1.2-4.9) X10*3/uL [place] # (Auto) 1.5 H (0.1-1.2) X10*3/uL Eos # (Auto) 0.2 (0.0-0.4) X10*3/uL Baso # (Auto) 0.0 (0.0-0.2) X10*3/uL Abs Immat Gran (auto) 0.06 H (0.00-0.03) X10*3/uL Absolute Neuts (auto) 12.5 H (2.0-8.3) x10*3/uL Absolute Nucleated RBC 0.000 (0.0-0.012) X10*3/uL Nucleated RBC % (auto) 0.0 (0.0-0.2) /100WBC Smear Tech's Comments VERIFIED Sodium 135 (135-145) mmol/L Potassium 4.1 (3.3-5.1) mmol/L Chloride 103 (96-108) mmol/L Carbon Dioxide 21 L (22-29) mmol/L Anion Gap 15 (12-20) BUN 9 (9-16) mg/dL Creatinine 1.10 (0.5-1.4) mg/dL Estim Creat Clear Calc 100.3 Estimated GFR > 60 Random Glucose 111 (60-115) mg/dL Calcium 9.2 (8.4-10.2) mg/dL Total Bilirubin 1.5 H (0.0-1.0) mg/dL AST 27 D (5-37) U/L ALT 41 H (0-40) U/L Alkaline Phosphatase 103 (39-117) U/L Total Protein 7.8 (6.5-8.0) g/dL Albumin 4.3 (3.5-5.0) g/dL Lipase 241 H (8-78) U/L Discharge Plan Discharge Clinical Impression: Acute pancreatitis Patient Disposition: Admitted As Inpatient Prescriptions: No Action cyanocobalamin (vitamin B-12) 500 mcg tablet, sublingual 500 mcg sublingual DAILY 30 Days Qty: 30 6RF acetaminophen-codeine 300-30 mg tablet 1 tab PO BID PRN (Reason: pain) 30 Days Qty: 10 1RF fluticasone propionate 50 mcg/actuation spray,suspension 1 spray intranasal BID Qty: 16 3RF (DME) Skin Prep Wipes Misc See Rx Instructions .Route Qty: 50 8RF Rx Instructions: As directed (DME) Stomahesive Paste Paste See Rx Instructions .Route Qty: 56.7 8RF Rx Instructions: As directed (DME) Premier Colostomy-Ileostomy 12 (2 1/2 ) misc See Rx Instructions .Route Qty: 5 8RF Rx Instructions: As directed clonazepam 1 mg tablet 1 tab PO BEDTIME PRN (Reason: Anxiety) 0RF omeprazole 40 mg capsule,delayed release(DR/EC) 40 mg PO DAILY PRN0RF cholecalciferol (vitamin D3) 50 mcg (2,000 unit) capsule 50 mcg PO DAILY 30 Days Qty: 30 11RF ibuprofen 800 mg tablet 800 mg PO Q8H 15 Days Qty: 45 0RF omega-3 acid ethyl esters 1 gram capsule 2 cap PO BID 30 Days Qty: 120 6RF fenofibrate 160 mg tablet 160 mg PO DAILY 30 Days Qty: 30 11RF atorvastatin 40 mg tablet 40 mg PO DAILY 30 Days Qty: 30 11RF
[2021-12-04 02:09] LABS: Lipase 241 U/L (8-78)
[2021-12-04] MEDS: ondansetron HCL 4 MG/2 ML VIAL IVPUSH ×4 (02:23→18:22)
[2021-12-04] MEDS: HYDROmorphone HCl 0.5 MG/0.5 ML SYRINGE IVPUSH (02:23)
[2021-12-04] MEDS: 0.9 % Sodium Chloride 1,000 ML 999 ML IV (02:23)
[2021-12-04 04:02] LABS: COVID-19 Test Negative (Negative); IDNOW Serial# 9DB6401D
--- NOTE | 2021-12-04 06:01 | P.HPHOSP_ITS ---
History of Present Illness Date of Service: 12/04/21 Chief Complaint: abd pain This is a 41-year-old male with past medical history of ulcerative colitis, status post colectomy GERD, ged, HLD, presents the hospital with complaints of epigastric abdominal pain. Patient reports the pain initially started in his back then started radiating to the front, associated with nausea no vomiting, 10/10, no worsening or alleviating factors. no fever or chills, he is constipated. No urinary symptoms. On arrival to the ED patient hemodynamically stable with no significant abnormal vitals Labs are significant for WBC count of 16.5, hemoglobin of 13.6, hematocrit 30.2, lipase of 241, Abdominal pelvic CT shows stranding in the central to right abdomen concerning for acute pancreatitis versus duodenitis, patient also has CT evidence of inflammatory stranding and fluid extending near bowel loops in the lateral right abdomen with no bowel obstruction seen. ? Patient will be admitted for further management of acute pancreatitis Review of Systems Review of Systems: Yes all other systems are reviewed and are negative [facility] Medical History B12 deficiency H/O acute pancreatitis H/O deep venous thrombosis HLD (hyperlipidemia) Presence of IVC filter Ulcerative colitis Vitamin D deficiency Zinc deficiency Family History Father CVD (cardiovascular disease) Mother Hypertension Diabetes Maternal Grandmother Liver cancer Maternal Grandfather CVD (cardiovascular disease) Family/Other Diabetes Surgical History History of colectomy History of ileostomy History of ileostomy History of resection of rectum Social History Housing: Apartment Alcohol intake: never Patient Tobacco Use Status: Former Tobacco user e-Cigarette/Vaping Use: Never Used Advance Directives: No Advance Directives Information Provided: No service: No Current occupational status: disabled Cognitive needs: No Hearing needs: No Vision needs: No Meds Allergies Allergy/AdvReac Type Severity Reaction Status Date / Time cetirizine [From Zyrtec] AdvReac Mild Nightmare Verified 12/03/21 23:48 lactose AdvReac Unknown Diarrhea Verified 12/03/21 23:48 Active Medications: Current Medications Acetaminophen (Acetaminophen 325 Mg Tablet) 650 mg PO Q6H PRN PRN Reason: Pain, Mild (Pain Scale 1-3) Docusate Sodium (Docusate Sodium 100 Mg Capsule) 100 mg PO DAILY PRN PRN Reason: Constipation Enoxaparin Sodium (Enoxaparin Sodium 40 Mg/0.4 Ml Syringe) 40 mg SUBCUT Q24H DARRYL Hydromorphone HCl (Hydromorphone Hcl 1 Mg/Ml Syringe) 0.5 mg IVPUSH Q4H PRN; Protocol PRN Reason: Pain, Severe (Pain Scale 7-10) Lactated Ringer's (Lr) 1,000 mls @ 200 mls/hr IVCONT .Q5H DARRYL Ondansetron HCl (Ondansetron Hcl 4 Mg/2 Ml Vial) 4 mg IVPUSH Q8H PRN PRN Reason: Nausea and Vomiting Sodium Chloride (0.9 % Sodium Chloride Flush 3 Ml Syringe) 3 ml IVFLUSH QSHIFT [facility] Home Medications Medication Instructions Recorded Confirmed Last Taken Type clonazepam 1 mg tablet 1 tab PO BEDTIME PRN 10/05/20 10/24/21 Unknown History omeprazole 40 mg capsule,delayed 40 mg PO DAILY PRN 10/24/21 10/24/21 Unknown History release Physical Exam Vital Signs and Narrative: Vital Signs: Last Vital Signs Temp 98.8 F 12/03/21 23:43 Pulse 95 12/03/21 23:43 Resp 20 12/03/21 23:43 BP 132/84 12/03/21 23:43 Pulse Ox 99 12/03/21 23:43 BMI result Body Mass Index 28.8 Const: General: cooperative and no acute distress Orientation/consciousness: patient oriented x3 Eyes: General: appearance normal, both eyes and all related structures Resp: Effort & Inspection: normal respiratory effort Auscultation: clear to auscultation bilaterally Cardio: Rate: regular rate Rhythm: regular rhythm GI: Other: Abdomen is tender in the epigastric region, some guarding, no rebound Palpation (GI): Soft to palpation Auscultation: normal bowel sounds Skin: General skin exam: no rashes or lesions noted Neuro: General: patient oriented x3 Cognition (Neuro): normal cognition Extrem: General: Yes normal to inspection and Yes no pedal edema Results Labs CBC and Chem 7: 12/03/21 23:55 12/03/21 23:55 Labs: Laboratory Results - last 24 hr 12/03/21 12/03/21 12/04/21 23:55 23:55 03:43 MCV 75.3 L MCH 26.8 L MCHC 35.6 RDW 12.8 Plt Count 311 MPV 9.3 L Immature Gran % (Auto) 0.4 Neut % (Auto) 75.7 H Lymph % (Auto) 13.5 L [place] % (Auto) 9.3 Eos % (Auto) 1.0 Baso % (Auto) 0.1 Lymph # (Auto) 2.2 [place] # (Auto) 1.5 H Eos # (Auto) 0.2 Baso # (Auto) 0.0 Abs Immat Gran (auto) 0.06 H Absolute Neuts (auto) 12.5 H Absolute Nucleated RBC 0.000 Nucleated RBC % (auto) 0.0 Smear Tech's Comments VERIFIED Anion Gap 15 Estim Creat Clear Calc 100.3 Estimated GFR > 60 Random Glucose 111 Calcium 9.2 Total Bilirubin 1.5 H AST 27 D ALT 41 H Alkaline Phosphatase 103 Total Protein 7.8 Albumin 4.3 Lipase 241 H COVID-19 (CAL) Negative COVID-19 Clin Com See Note Imaging Radiologist's Impressions: Impressions Abdomen/Pelvis CT 12/04/21 02:42 IMPRESSION: 1. Stranding in the central to right abdomen, which appears overall most prominent near the proximal pancreas and duodenum which also has a thick-walled appearance. This may represent pancreatitis or primary duodenitis in the proper clinical setting. 2. Postoperative changes from prior colectomy with right lower quadrant ileostomy. Some of the inflammatory stranding and fluid extends near bowel loops in the lateral right abdomen, though no evidence for bowel obstruction is seen. 3. Hepatic steatosis. Assessment and Plan (1) Acute pancreatitis: Status: Acute Plan 41-year-old male past medical history of ulcerative colitis status post ileostomy presents to the hospital with complaints of abdominal pain found to have acute pancreatitis # acute pancreatitis - likely idiopathic, patient denies alcohol abuse no evidence of LFT elevation or gallbladder abnormality on CT of the abdomen - will obtain ultrasound although less likely to be diagnostic - treat with IV fluids - pain control - NPO DVT prophylaxis: Lovenox Given acute pancreatitis, patient will require a minimum 2 night hospital stay for IV hydration Quality Stroke Does the patient have a stroke diagnosis?: No VTE Prior VTE?: No VTE Risk Level:: Medical - moderate - high VTE Device Contraindication: Treatment Not Indicated VTE Drug Contraindication: N/A - Med Ordered
[2021-12-04] MEDS: Enoxaparin Sodium 40 MG/0.4 ML SYRINGE SUBCUT (06:06)
[2021-12-04] MEDS: HYDROmorphone HCl 1 MG/ML SYRINGE 0.5 MG IVPUSH ×4 (06:06→22:37)
[2021-12-04 06:12] VITALS: BP 135/72; PULSE 88; RESP 16; TEMP 37.3; O2SAT 96
[2021-12-04] MEDS: Lactated Ringers 1,000 ML 200 ML IVCONT ×4 (06:18→19:28)
[2021-12-04 06:50] LABS: Appearance Urine CLEAR; Color Urine YELLOW; Glucose Urine UA NEG (NEG); Leukocyte Esterase Urine NEG (NEG); Nitrite Urine NEG (NEG); PH 5.5 (5.0-8.0); Specific Gravity - Urine >= 1.030 (1.005-1.025); Urine Blood NEG (NEG); Urine Ketones NEG (NEG); Urine Protein NEG (NEG-TRACE)
[2021-12-04 07:13] LABS: Anion Gap 10 (12-20); Blood Urea Nitrogen 7 mg/dL (9-16); Calcium 8.5 mg/dL (8.4-10.2); Carbon Dioxide 21 mmol/L (22-29); Chloride 108 mmol/L (96-108); Creatinine Clr Calc Pharmacy 131.3; Estimated Glomerular Filt Rate > 60; Glucose Random 105 mg/dL (60-115); Potassium 3.8 mmol/L (3.3-5.1); Sodium 135 mmol/L (135-145)
[2021-12-04 08:45] LABS: MANUAL DIFF FLAG NO
[2021-12-04 08:47] LABS: Basophils Percent Auto 0.1 % (0-2); Eosinophils Absolute Auto 0.2 X10*3/uL (0.0-0.4); Eosinophils Percent Auto 1.2 % (0-4); Hemoglobin 12.7 g/dl (14.0-18.0); Imm Gran Abs Auto 0.05 X10*3/uL (0.00-0.03); Imm Gran Pct Auto 0.3 % (0.0-0.4); Lymphocytes Absolute Auto 2.2 X10*3/uL (1.2-4.9); Lymphocytes Percent Auto 15.2 % (20-40); Mean Corpuscular HGB Conc 34.3 g/dl (31.0-36.0); Mean Corpuscular Hemoglobin 26.2 pg (27.0-33.0); Mean Corpuscular Volume 76.4 fL (80.0-98.0); Mean Platelet Volume 9.5 fL (9.4-12.4); Monocytes Absolute Auto 1.4 X10*3/uL (0.1-1.2); Monocytes Percent Auto 9.6 % (2-11); Neutrophils Absolute Auto 10.8 x10*3/uL (2.0-8.3); Neutrophils Percent Auto 73.6 % (45-73); Platelet Count 285 X10*3/uL (160-400); Red Blood Count 4.84 X10*6/uL (4.60-5.80); White Blood Count 14.7 X10*3/uL (4.8-10.8)
--- NOTE | 2021-12-04 09:36 | PHA.MEDREC ---
Pharmacy Consult ? Medication Reconciliation Pharmacy has completed the medication reconciliation. Spoke with patient in ED. Patient last took medications yesterday. Patient is NOT taking singulair/flonase/gabapentin.
[2021-12-04 11:00] VITALS: BP 124/67; PULSE 87; RESP 18; O2SAT 100
--- NOTE | 2021-12-04 12:50 | PM.EVENT ---
Event Note Date of Service: 12/04/21 Event Note: Seen and evaluated this morning Pain under better controlled Denies any fever or chills Reporting new onset bilateral hand stiffness and joint swelling, advised to follow-up with Rheumatology as outpatient Keep NPO continue IV fluids Consider starting clear liquids later today or tomorrow morning Hold fenofibrate and consider changing it for increasing the risk of acute pancreatitis
[2021-12-04 14:34] VITALS: BP 136/87; PULSE 97; RESP 18; O2SAT 98
--- NOTE | 2021-12-04 14:45 | PC.NURSE ---
Pt medicated as per [facility] orders for pain 8/10 and nausea. Urinating at bedside with no difficulty, IV fluids running as per [facility] orders, tolerating PO ice chips with no difficulty. Awaiting bed assignment. Will continue to monitor.
--- NOTE | 2021-12-04 16:00 | PC.NURSE ---
Report to Karen in Overflow
--- NOTE | 2021-12-04 16:35 | PC.NURSE ---
this communications writer assumed care of this pt at 1600. pt alert and oriented, vss. LR running at 200 ml/hr. no apparent distress, pt resting quietly. at his bedside.
--- NOTE | 2021-12-04 18:52 | PC.NURSE ---
report given receiving RN.
[2021-12-04] MEDS: 0.9 % Sodium Chloride Flush 3 ML SYRINGE IVFLUSH (19:29)
[2021-12-04 20:09] VITALS: BP 130/79; PULSE 103; RESP 18; TEMP 37.7; O2SAT 98
[2021-12-04 20:11] VITALS: BMI 32.3
[2021-12-04 23:08] VITALS: BP 140/75; PULSE 103; RESP 18; TEMP 37.4; O2SAT 97
[2021-12-05] MEDS: Lactated Ringers 1,000 ML 100 ML IVCONT ×3 (00:57→20:12)
[2021-12-05] MEDS: ondansetron HCL 4 MG/2 ML VIAL IVPUSH ×2 (02:20→10:31)
[2021-12-05] MEDS: HYDROmorphone HCl 1 MG/ML SYRINGE 0.5 MG IVPUSH ×6 (02:20→23:51)
[2021-12-05 03:19] VITALS: BP 135/76; PULSE 98; RESP 18; TEMP 37.2; O2SAT 95
[2021-12-05] MEDS: Enoxaparin Sodium 40 MG/0.4 ML SYRINGE SUBCUT (05:57)
[2021-12-05 07:25] VITALS: BP 127/73; PULSE 97; RESP 20; TEMP 37.6; O2SAT 95
[2021-12-05 07:25] LABS: Hematocrit 36.1 % (42.0-52.0); Hemoglobin 12.2 g/dl (14.0-18.0); Mean Corpuscular HGB Conc 33.8 g/dl (31.0-36.0); Mean Corpuscular Hemoglobin 26.2 pg (27.0-33.0); Mean Corpuscular Volume 77.5 fL (80.0-98.0); Mean Platelet Volume 9.5 fL (9.4-12.4); Platelet Count 273 X10*3/uL (160-400); Red Blood Count 4.66 X10*6/uL (4.60-5.80); Red Cell Distribution Width 13.1 % (11.0-16.0); White Blood Count 17.2 X10*3/uL (4.8-10.8)
[2021-12-05 07:47] LABS: Alanine Aminotransferase 25 U/L (0-40); Albumin Level 3.6 g/dL (3.5-5.0); Alkaline Phosphatase 90 U/L (39-117); Aspartate Amino Transferase 21 U/L (5-37); Bilirubin Direct 0.9 mg/dL (0.0-0.5); Bilirubin Total 2.1 mg/dL (0.0-1.0); Total Protein 6.5 g/dL (6.5-8.0)
[2021-12-05 07:49] LABS: Anion Gap 15 (12-20); Blood Urea Nitrogen 5 mg/dL (9-16); Calcium 8.6 mg/dL (8.4-10.2); Carbon Dioxide 22 mmol/L (22-29); Chloride 101 mmol/L (96-108); Creatinine Clr Calc Pharmacy 125.3; Estimated Glomerular Filt Rate > 60; Glucose Random 87 mg/dL (60-115); Potassium 3.9 mmol/L (3.3-5.1); Sodium 134 mmol/L (135-145)
--- NOTE | 2021-12-05 08:35 | MHC.CM.PN ---
CM met with Patient at bedside. Patient lives in an apartment with his Girlfriend(his Daughter lives with his Mother) and he required no services nor DME HOME ADVISOR, PCP IS DR. CHRIS STEVENSON, pATIENT HAS RECEIVED [employer] X2.Home/no services is the goal and CM has initiated and will follow for dc planning.
[2021-12-05] MEDS: 0.9 % Sodium Chloride Flush 3 ML SYRINGE IVFLUSH ×2 (10:24→23:52)
[2021-12-05] MEDS: Atorvastatin Calcium 40 MG TABLET PO (10:25)
[2021-12-05 11:25] VITALS: BP 134/73; PULSE 95; RESP 20; TEMP 37.4; O2SAT 96
--- NOTE | 2021-12-05 11:38 | PC.NURSE ---
11:50 pt reported abd pain and nausea. Medicated wtih PRN dilauded and zofran
--- NOTE | 2021-12-05 12:05 | P.PNIM_ITS ---
Subjective Subjective Date of Service: 12/05/21 Review of Systems Follow up pancreatitis still with abdominal pain and nausea Physical Exam Vital Signs: Vital Signs: Last Vital Signs Temp 99.3 F 12/05/21 11:25 Pulse 95 12/05/21 11:25 Resp 20 12/05/21 11:25 BP 134/73 12/05/21 11:25 Pulse Ox 96 12/05/21 11:25 BMI result Body Mass Index 32.3 Appearing in no acute distress LSCTA heart regular rate rhythm, clear S1, S2 positive bowel sounds, abdomen is soft, diffuse tenderness neuro patient is alert x3, no focal deficits Objective Data Active Medications Acetaminophen (Acetaminophen 325 Mg Tablet) 650 mg PO Q6H PRN PRN Reason: Pain, Mild (Pain Scale 1-3) Atorvastatin Calcium (Atorvastatin Calcium 40 Mg Tablet) 40 mg PO DAILY [facility] Last Admin: 12/05/21 10:25 Dose: 40 mg Documented by: MARINA Clonazepam (Clonazepam 1 Mg Tablet) 1 mg PO BEDTIME PRN PRN Reason: Anxiety Docusate Sodium (Docusate Sodium 100 Mg Capsule) 100 mg PO DAILY PRN PRN Reason: Constipation Enoxaparin Sodium (Enoxaparin Sodium 40 Mg/0.4 Ml Syringe) 40 mg SUBCUT Q24H [facility] Last Admin: 12/05/21 05:57 Dose: 40 mg Documented by: SANDY Hydromorphone HCl (Hydromorphone Hcl 1 Mg/Ml Syringe) 0.5 mg IVPUSH Q4H PRN; Protocol PRN Reason: Pain, Severe (Pain Scale 7-10) Last Admin: 12/05/21 10:24 Dose: 0.5 mg Documented by: MARINA Lactated Ringer's (Lr) 1,000 mls @ 100 mls/hr IVCONT .Q10H [facility] Last Admin: 12/05/21 10:31 Dose: 100 mls/hr Documented by: MARINA Omeprazole (Omeprazole 40 Mg Capsule.Dr) 40 mg PO DAILY PRN PRN Reason: Acid Reflux Ondansetron HCl (Ondansetron Hcl 4 Mg/2 Ml Vial) 4 mg IVPUSH Q8H PRN PRN Reason: Nausea and Vomiting Last Admin: 12/05/21 10:31 Dose: 4 mg Documented by: MARINA Oxymetazoline HCl (Oxymetazoline Hcl 0.05 % Nasal 15 Ml [place]) 2 spray NOSTRIL- B Q12H PRN PRN Reason: Allergy Symptoms Pharmacy Consult (Consult Rx Perform Med Rec) 1 each MISCELLANE ONCE PRN PRN Reason: Consult order Sodium Chloride (0.9 % Sodium Chloride Flush 3 Ml Syringe) 3 ml IVFLUSH QSHIFT [facility] Last Admin: 12/05/21 10:24 Dose: 3 ml Documented by: MARINA Labs CBC & Chem 7: 12/05/21 06:41 12/05/21 06:41 Labs: Laboratory Results - last 24 hr 12/05/21 12/05/21 12/05/21 06:41 06:41 06:41 MCV 77.5 L MCH 26.2 L MCHC 33.8 RDW 13.1 Plt Count 273 MPV 9.5 Absolute Nucleated RBC 0.000 Nucleated RBC % (auto) 0.0 Anion Gap 15 Estim Creat Clear Calc 125.3 Estimated GFR > 60 Random Glucose 87 Calcium 8.6 Total Bilirubin 2.1 H Direct Bilirubin 0.9 H AST 21 ALT 25 Alkaline Phosphatase 90 Total Protein 6.5 Albumin 3.6 Assessment and Plan (1) Acute pancreatitis: Status: Acute Plan 41-year-old male past medical history of ulcerative colitis status post ileostomy presents to the hospital with complaints of abdominal pain found to have acute pancreatitis Acute pancreatitis Has had history of hypertriglyceridemia in the past, denies alcohol abuse check triglycerides abd ultrasound showed hepatic steatosis treat with IV fluids pain control clear liquid diet Leukocytosis with low grade fever neg ua no signs of infection discuss with GI whether pancreatitis vs duodenitis Macrocytic anemia chronic no bleeding follow CBC Attending Dr. Castanon DVT prophylaxis:? Lovenox Full code continue hospitalization for treatment of acute pancreatitis necessitating IV fluids and IV pain medication Quality Stroke Does the patient have a stroke diagnosis?: No VTE Prior VTE?: No VTE Risk Level:: Medical - moderate - high VTE Device Contraindication: Treatment Not Indicated VTE Drug Contraindication: N/A - Med Ordered
--- NOTE | 2021-12-05 13:19 | P.CDIC_ITS ---
CDI Concurrent Query Documentation Clarification: PHYSICIAN'S DOCUMENTATION REQUEST Date of Query: 12/05/21 1319 Patient Name: Justino Sheets Admit Date: 12/04/21 Dear Doctor, A review of the medical record indicates additional documentation may be needed. Please review below and update the documentation accordingly. Risk Factors/Clinical Indicators/Treatments WBC 16.5 heart rate 95 Per ED: possible Acute Pancreatitis Lipase 241 Please clarify which of the following most accurately describes the above abnormalities: * SIRS due to a non-infectious source * Indicate the known or suspected etiology * Indicate if there is associated organ dysfunction, such as renal or respiratory failure * Leukocytosis * Other * Unable to determine Use of terms such as suspected, likely, concern for, or probable (associated with a specific diagnosis that is being evaluated, monitored, or treated as if it exists) are acceptable and can be coded in the inpatient setting, when documented at the time of discharge. Thank you, Gloria Bernabe RN Extension: [phone] Please use your independent medical judgment in providing your response. THIS QUERY IS PART OF THE PERMANENT MEDICAL RECORD Other Diagnosis: see note
[2021-12-05 15:27] VITALS: BP 155/65; PULSE 98; RESP 17; TEMP 37; O2SAT 95
[2021-12-05 18:54] VITALS: BP 127/64; PULSE 100; RESP 17; TEMP 36.2; O2SAT 95
--- NOTE | 2021-12-05 19:54 | PM.EVENT ---
Event Note Date of Service: 12/05/21 Event Note: Imp: Recurrent pancreatitis due to presumed hypertriglyceridemia. His w/u has otherwise been negative in regard to the pancreatitis. He does report intermittent noncompliance with his lipid lowering agents, including for at least the past 1 week before this hospitalization. He appears to be clinically improving, although still having some abdominal pain and tenderness. Rec: Supportive care. F/U labs in AM , including TG's level. Resume his outpatient lipid lowering agents. Advance to low fat diet as tolerated. D/W patient and his girlfriend in detail. Thanks.
[2021-12-05 23:10] VITALS: BP 140/73; PULSE 95; RESP 18; TEMP 37.2; O2SAT 90
[2021-12-06 04:00] VITALS: BP 128/72; PULSE 89; RESP 18; TEMP 36.4; O2SAT 97
--- NOTE | 2021-12-06 04:52 | CONS_ITS ---
DATE OF SERVICE: 12/05/2021 REASON FOR CONSULTATION: Pancreatitis. HISTORY OF PRESENT ILLNESS: This has been obtained from the patient and medical record. The patient is a 41-year-old male with a known history of hypertriglyceridemia and associated pancreatitis. I have seen him in the past during other hospitalizations. He has had workups to exclude other etiologies of his pancreatitis including that of gallbladder ultrasound. He does not use any alcohol. However, as far as I can see, he has not had any IgG subtyping to assess for autoimmune pancreatitis. The patient describes an episode of pancreatitis requiring hospitalization at [facility] for about 1 week earlier this year. He describes that recently he was doing well up until the past day or two before admission. He does describe somewhat noncompliance with his lipid lowering medications and most recently reports that he was not using it for at least 1 week. He does not use any alcohol. He developed the onset of abdominal pain with some nausea, but no vomiting. He did not notice any jaundice. He does have an ileostomy and did not notice any particular change in his bowel movements. He did not notice any bleeding. Due to the persistent pain, he came to the ER and was found to have an elevated lipase of 241. In September, it had been 452. He was admitted for further evaluation. He does report that his pain is somewhat improved, but is still requiring some analgesics. He describes that his ileostomy is functioning. He is passing urine without difficulty, although does report that it is somewhat dark. He denies any further nausea nor vomiting and is tolerating liquids. MEDICATIONS: At home include atorvastatin, vitamin D, clonazepam, vitamin B12, fenofibrate, fish oil, omeprazole. Medications here in the hospital include acetaminophen, atorvastatin, Lovenox, Colace, Dilaudid p.r.n., omeprazole, Zofran p.r.n. PAST MEDICAL HISTORY: Numerous surgeries in relation to previous ulcerative colitis that eventually was treated with ultimate proctocolectomy and permanent ileostomy. The last surgery for that was in approximately 2001. 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 He has hypertriglyceridemia-induced pancreatitis as described above. He has had at least several hospitalizations for that, including most recently earlier this year. He has a history of asthma. He denies history of [place], diabetes, nor stroke. SOCIAL HISTORY: He denies tobacco nor alcohol. FAMILY HISTORY: Noncontributory. He denies any known history of pancreatitis in the family. REVIEW OF SYSTEMS: CONSTITUTIONAL: Up until the past 2 or 3 days, he has been feeling well. Appetite had been good. SKIN: No rash. No pruritus. CARDIAC: No chest pain. PULMONARY: No cough. No hemoptysis. GASTROINTESTINAL: As above. PHYSICAL EXAMINATION: GENERAL: The patient is a pleasant, alert, comfortable-appearing male. SKIN: Warm and dry. HEENT: Anicteric sclerae. NECK: Supple. Moist mucous membranes. CARDIAC: Normal S1, S2. ABDOMEN: Soft, nondistended. He does have some mild diffuse tenderness. The bowel sounds are normal. There is no mass. EXTREMITIES: Without edema. LABORATORY DATA: White blood cell count 16.5 on admission and 17.2 today, hemoglobin 12.2, platelets 273,000. Sodium 134, potassium 3.9, BUN 5, creatinine 0.9, chloride 101, CO2 of 22. Total bilirubin went from 1.5 to 2.1 with a direct bilirubin of 0.9. The remainder of the LFTs including albumin are normal. Lipase 241. Abdominal ultrasound from yesterday described a normal gallbladder and no evidence of any suspicious biliary nor hepatic abnormalities. The common bile duct was 3 mm. There was no ascites. CT of the abdomen and pelvis describes some stranding near the head of the pancreas consistent with pancreatitis. There was no evidence of any bowel obstruction, ascites, nor liver disease. He has not had a triglyceride level drawn. IMPRESSION: Given the patient's clinical history and previous history, this seems consistent with another episode of acute pancreatitis, probably in relation to the known hypertriglyceridemia. At this point, he does appear clinically stable, although he does have somewhat elevated white count. As such, I would repeat laboratories tomorrow including a CBC with diff, lipase, liver profile, and would also check laboratories for IgG subtyping to assess for any component of autoimmune pancreatitis. I would otherwise continue supportive care. A triglyceride level will be checked and he should be continued on his outpatient regimen for his hypertriglyceridemia and hyperlipidemia. I do not think he requires antibiotics at this time. If the situation worsens, I would then repeat a CT scan with IV contrast to rule out any component of necrotizing pancreatitis. However at this point, I do not think that is necessary. Once he has improved, I would advance to a low-fat diet. From what I can see here at [facility], he has not had MRCP or MRI of the pancreas and depending upon his clinical course, we may want to obtain that as an outpatient if things remain stable, or certainly as an inpatient if things were to worsen or simply not improved. I did advise him that he needs to be compliant with his triglyceride and cholesterol lowering medication as well. Thank you for the consultation. MD AAN Veloz/ESTEVAN / [phone]
[2021-12-06] MEDS: HYDROmorphone HCl 1 MG/ML SYRINGE 0.5 MG IVPUSH ×4 (04:53→21:15)
[2021-12-06] MEDS: Enoxaparin Sodium 40 MG/0.4 ML SYRINGE SUBCUT (04:56)
[2021-12-06 06:21] LABS: Hematocrit 35.1 % (42.0-52.0); Hemoglobin 11.7 g/dl (14.0-18.0); Mean Corpuscular HGB Conc 33.3 g/dl (31.0-36.0); Mean Corpuscular Hemoglobin 26.1 pg (27.0-33.0); Mean Corpuscular Volume 78.2 fL (80.0-98.0); Mean Platelet Volume 11.2 fL (9.4-12.4); Platelet Count 185 X10*3/uL (160-400); Red Blood Count 4.49 X10*6/uL (4.60-5.80); White Blood Count 13.9 X10*3/uL (4.8-10.8)
[2021-12-06] MEDS: Lactated Ringers 1,000 ML 100 ML IVCONT (06:21)
[2021-12-06 06:38] LABS: Alanine Aminotransferase 21 U/L (0-40); Albumin Level 3.5 g/dL (3.5-5.0); Alkaline Phosphatase 102 U/L (39-117); Aspartate Amino Transferase 17 U/L (5-37); Bilirubin Direct 0.7 mg/dL (0.0-0.5); Bilirubin Total 1.4 mg/dL (0.0-1.0); Total Protein 6.3 g/dL (6.5-8.0)
[2021-12-06 06:41] LABS: Anion Gap 15 (12-20); Blood Urea Nitrogen 6 mg/dL (9-16); Calcium 8.4 mg/dL (8.4-10.2); Carbon Dioxide 20 mmol/L (22-29); Chloride 102 mmol/L (96-108); Creatinine Clr Calc Pharmacy 132.4; Estimated Glomerular Filt Rate > 60; Glucose Random 96 mg/dL (60-115); Potassium 3.8 mmol/L (3.3-5.1); Sodium 133 mmol/L (135-145)
[2021-12-06 06:42] LABS: Lipase 99 U/L (8-78); Triglycerides 273 mg/dL
[2021-12-06 07:24] VITALS: BP 122/72; PULSE 82; RESP 16; TEMP 37.2; O2SAT 95
[2021-12-06] MEDS: Atorvastatin Calcium 40 MG TABLET PO (08:11)
[2021-12-06] MEDS: Lactated Ringers 1,000 ML 150 ML IVCONT ×3 (10:46→23:54)
--- NOTE | 2021-12-06 11:11 | HO.PM.IMPN ---
Subjective Subjective Date of Service: 12/06/21 Review of Systems Follow up pancreatitis still with abdominal pain and nausea Physical Exam Vital Signs: Vital Signs: Last Vital Signs Temp 98.9 F 12/06/21 07:24 Pulse 82 12/06/21 07:24 Resp 16 12/06/21 07:24 BP 122/72 12/06/21 07:24 Pulse Ox 95 12/06/21 07:24 BMI result Body Mass Index 32.3 Appearing in no acute distress\ lung sounds are clear to auscultation heart regular rate rhythm, clear S1, S2 positive bowel sounds, abdomen is soft, nontender neuro patient is alert x3, no focal deficits Objective Data Active Medications Acetaminophen (Acetaminophen 325 Mg Tablet) 650 mg PO Q6H PRN PRN Reason: Pain, Mild (Pain Scale 1-3) Atorvastatin Calcium (Atorvastatin Calcium 40 Mg Tablet) 40 mg PO DAILY [facility] Last Admin: 12/06/21 08:11 Dose: 40 mg Documented by: TEA Clonazepam (Clonazepam 1 Mg Tablet) 1 mg PO BEDTIME PRN PRN Reason: Anxiety Docusate Sodium (Docusate Sodium 100 Mg Capsule) 100 mg PO DAILY PRN PRN Reason: Constipation Enoxaparin Sodium (Enoxaparin Sodium 40 Mg/0.4 Ml Syringe) 40 mg SUBCUT Q24H [facility] Last Admin: 12/06/21 04:56 Dose: 40 mg Documented by: GAIL Hydromorphone HCl (Hydromorphone Hcl 1 Mg/Ml Syringe) 0.5 mg IVPUSH Q4H PRN; Protocol PRN Reason: Pain, Severe (Pain Scale 7-10) Last Admin: 12/06/21 10:45 Dose: 0.5 mg Documented by: TEA Lactated Ringer's (Lr) 1,000 mls @ 150 mls/hr IVCONT .Q6H40M [facility] Last Admin: 12/06/21 10:46 Dose: 150 mls/hr Documented by: TEA Omeprazole (Omeprazole 40 Mg Capsule.Dr) 40 mg PO DAILY PRN PRN Reason: Acid Reflux Ondansetron HCl (Ondansetron Hcl 4 Mg/2 Ml Vial) 4 mg IVPUSH Q8H PRN PRN Reason: Nausea and Vomiting Last Admin: 12/05/21 10:31 Dose: 4 mg Documented by: MARINA Oxymetazoline HCl (Oxymetazoline Hcl 0.05 % Nasal 15 Ml [place]) 2 spray NOSTRIL-B Q12H PRN PRN Reason: Allergy Symptoms Pharmacy Consult (Consult Rx Perform Med Rec) 1 each MISCELLANE ONCE PRN PRN Reason: Consult order Sodium Chloride (0.9 % Sodium Chloride Flush 3 Ml Syringe) 3 ml IVFLUSH QSHIFT [facility] Last Admin: 12/06/21 08:11 Dose: Not Given Documented by: TEA Non-Admin Reason: IV Running Labs CBC & Chem 7: 12/06/21 06:05 12/06/21 06:05 Labs: Laboratory Results - last 24 hr 12/06/21 12/06/21 12/06/21 06:04 06:04 06:05 MCV 78.2 L MCH 26.1 L MCHC 33.3 RDW 13.0 Plt Count 185 D MPV 11.2 Absolute Nucleated RBC 0.000 Nucleated RBC % (auto) 0.0 Anion Gap Estim Creat Clear Calc Estimated GFR Random Glucose Calcium Total Bilirubin 1.4 H Direct Bilirubin 0.7 H AST 17 ALT 21 Alkaline Phosphatase 102 Total Protein 6.3 L Albumin 3.5 Triglycerides 273 Lipase 99 H 12/06/21 06:05 MCV MCH MCHC RDW Plt Count MPV Absolute Nucleated RBC Nucleated RBC % (auto) Anion Gap 15 Estim Creat Clear Calc 132.4 Estimated GFR > 60 Random Glucose 96 Calcium 8.4 Total Bilirubin Direct Bilirubin AST ALT Alkaline Phosphatase Total Protein Albumin Triglycerides Lipase Microbiology Microbiology Results: Microbiology 12/05/21 15:05 Blood Culture - Preliminary Blood - Venous Assessment and Plan (1) Acute pancreatitis: Status: Acute Plan 41-year-old male past medical history of ulcerative colitis status post ileostomy presents to the hospital with complaints of abdominal pain found to have acute pancreatitis Acute pancreatitis. Has had history of hypertriglyceridemia in the past, denies alcohol abuse still with abdominal pain abd ultrasound showed hepatic steatosis LR@150 pain control NPO may advance to clears if tolerated Seen by Dr. Bright recommending lab work at this time only, unless symptoms worsen he did recommend repeating CT scan with IV contrast. IGG pending to assess for component autoimmune pancreatitis Leukocytosis with low grade fever . Trending down, no fever neg ua no signs of infection Macrocytic anemia chronic no bleeding follow CBC Attending Dr. Castanon DVT prophylaxis:? Lovenox Full code continue hospitalization for treatment of acute pancreatitis necessitating IV fluids and IV pain medication Quality Stroke Does the patient have a stroke diagnosis?: No VTE Prior VTE?: No VTE Risk Level:: Medical - moderate - high VTE Device Contraindication: Treatment Not Indicated VTE Drug Contraindication: N/A - Med Ordered
[2021-12-06 11:22] VITALS: BP 128/71; PULSE 84; RESP 16; TEMP 37.1; O2SAT 93
[2021-12-06 15:15] VITALS: BP 126/62; PULSE 84; RESP 17; TEMP 37.2; O2SAT 97
[2021-12-06 19:26] VITALS: BP 119/74; PULSE 87; RESP 18; TEMP 37; O2SAT 98
[2021-12-06 23:39] VITALS: BP 141/78; PULSE 89; RESP 17; TEMP 37.3; O2SAT 97
[2021-12-07] VITALS (7 sets, daily range): BP systolic 122–142; BP diastolic 72–88; PULSE 74–82; RESP 16–20; TEMP 36.4–37.4; O2SAT 95–99
[2021-12-07] MEDS: HYDROmorphone HCl 1 MG/ML SYRINGE IVPUSH ×4 (01:18→22:24)
[2021-12-07] MEDS: Enoxaparin Sodium 40 MG/0.4 ML SYRINGE SUBCUT (06:37)
[2021-12-07] MEDS: Lactated Ringers 1,000 ML 150 ML IVCONT ×3 (06:38→18:27)
[2021-12-07] MEDS: ondansetron HCL 4 MG/2 ML VIAL IVPUSH (06:48)
[2021-12-07] MEDS: Atorvastatin Calcium 40 MG TABLET PO (08:55)
[2021-12-07] MEDS: Fenofibrate 160 MG TABLET PO (08:55)
--- NOTE | 2021-12-07 11:52 | HO.PM.IMPN ---
Subjective Subjective Date of Service: 12/07/21 Interval History: cc: abd pain interval history:continued pain, not interested in advancing diet Cardiovascular Cardiovascular: Reports no additional cardiovascular complaints Respiratory Respiratory: Reports no additional respiratory complaints Physical Exam Vital Signs: Vital Signs: Last Vital Signs Temp 97.6 F 12/07/21 11:06 Pulse 80 12/07/21 11:06 Resp 18 12/07/21 11:06 BP 135/76 12/07/21 11:06 Pulse Ox 99 12/07/21 11:06 O2 Del Method 12/07/21 11:06 BMI result Body Mass Index 32.3 General: AO X 3, in pain Resp: CTA bilateral, no accessory muscles used CVS: S1,S2,RRR GI: soft, tender, non distended, ileostomy Neuro: motor grossly intact, alert Psych: appropriate affect, appropriate insight Objective Data Active Medications Acetaminophen (Acetaminophen 325 Mg Tablet) 650 mg PO Q6H PRN PRN Reason: Pain, Mild (Pain Scale 1-3) Atorvastatin Calcium (Atorvastatin Calcium 40 Mg Tablet) 40 mg PO DAILY [facility] Last Admin: 12/07/21 08:55 Dose: 40 mg Documented By: KEYSHAWN Clonazepam (Clonazepam 1 Mg Tablet) 1 mg PO BEDTIME PRN PRN Reason: Anxiety Docusate Sodium (Docusate Sodium 100 Mg Capsule) 100 mg PO DAILY PRN PRN Reason: Constipation Enoxaparin Sodium (Enoxaparin Sodium 40 Mg/0.4 Ml Syringe) 40 mg SUBCUT Q24H [facility] Last Admin: 12/07/21 06:37 Dose: 40 mg Documented By: GAIL Fenofibrate (Fenofibrate 160 Mg Tablet) 160 mg PO DAILY [facility] Last Admin: 12/07/21 08:55 Dose: 160 mg Documented By: KEYSHAWN Hydromorphone HCl (Hydromorphone Hcl 1 Mg/Ml Syringe) 1 mg IVPUSH Q4H PRN; Protocol PRN Reason: Pain, Severe (Pain Scale 7-10) Last Admin: 12/07/21 06:46 Dose: 1 mg Documented By: GAIL Lactated Ringer's (Lr) 1,000 mls @ 150 mls/hr IVCONT .Q6H40M [facility] Last Admin: 12/07/21 06:38 Dose: 150 mls/hr Documented By: GAIL Non-Formulary Medication ([place]-3 Acid Ethyl Esters) 2 cap PO BID [facility] Omeprazole (Omeprazole 40 Mg Capsule.Dr) 40 mg PO DAILY PRN PRN Reason: Acid Reflux Ondansetron HCl (Ondansetron Hcl 4 Mg/2 Ml Vial) 4 mg IVPUSH Q8H PRN PRN Reason: Nausea and Vomiting Last Admin: 12/07/21 06:48 Dose: 4 mg Documented By: GAIL Oxymetazoline HCl (Oxymetazoline Hcl 0.05 % Nasal 15 Ml [place]) 2 spray NOSTRIL-B Q12H PRN PRN Reason: Allergy Symptoms Pharmacy Consult (Consult Rx Perform Med Rec) 1 each MISCELLANE ONCE PRN PRN Reason: Consult order Sodium Chloride (0.9 % Sodium Chloride Flush 3 Ml Syringe) 3 ml IVFLUSH QSHIFT [facility] Last Admin: 12/07/21 07:45 Dose: Not Given Documented By: KEYSHAWN Non-Admin Reason: IV Running Labs CBC & Chem 7: 12/06/21 06:05 12/06/21 06:05 Microbiology Microbiology Results: Microbiology 12/05/21 15:05 Blood Culture - Preliminary Blood - Venous No growth after 24 hours. 12/05/21 15:05 Blood Culture - Preliminary Blood - Venous No growth after 24 hours. Assessment and Plan (1) Acute pancreatitis: Status: Acute Plan 41-year-old male past medical history of ulcerative colitis status post ileostomy presents to the hospital with complaints of abdominal pain found to have acute pancreatitis Acute pancreatitis. Has had history of hypertriglyceridemia in the past, denies alcohol abuse still with abdominal pain, not ready to advance diet LR@150 pain control continue clears gi following IGG pending to assess for component autoimmune pancreatitis Macrocytic anemia chronic no bleeding follow CBC steatohepatitis likely NAFLD obesity weight loss recommended DVT prophylaxis:? Lovenox Full code reason for continued hospitalization:ivf for pancreatitis, not tolerating po Quality Stroke Does the patient have a stroke diagnosis?: No VTE Prior VTE?: No VTE Risk Level:: Medical - moderate - high VTE Device Contraindication: Treatment Not Indicated VTE Drug Contraindication: N/A - Med Ordered
[2021-12-07] MEDS: 0.9 % Sodium Chloride Flush 3 ML SYRINGE IVFLUSH (22:24)
[2021-12-08] MEDS: Lactated Ringers 1,000 ML 150 ML IVCONT ×2 (01:44→08:29)
[2021-12-08 03:52] VITALS: BP 147/81; PULSE 77; RESP 16; TEMP 37.1; O2SAT 97
[2021-12-08] MEDS: HYDROmorphone HCl 1 MG/ML SYRINGE IVPUSH ×3 (07:38→15:51)
[2021-12-08] MEDS: Atorvastatin Calcium 40 MG TABLET PO (07:38)
[2021-12-08] MEDS: Fenofibrate 160 MG TABLET PO (07:38)
[2021-12-08 08:00] VITALS: BP 129/80; PULSE 75; RESP 20; TEMP 36.4; O2SAT 97
[2021-12-08 08:04] LABS: Hematocrit 35.4 % (42.0-52.0); Hemoglobin 12.1 g/dl (14.0-18.0); Mean Corpuscular HGB Conc 34.2 g/dl (31.0-36.0); Mean Corpuscular Hemoglobin 26.2 pg (27.0-33.0); Mean Corpuscular Volume 76.8 fL (80.0-98.0); Mean Platelet Volume 9.1 fL (9.4-12.4); Platelet Count 337 X10*3/uL (160-400); Red Blood Count 4.61 X10*6/uL (4.60-5.80); Red Cell Distribution Width 12.5 % (11.0-16.0); White Blood Count 7.6 X10*3/uL (4.8-10.8)
[2021-12-08 08:22] LABS: Anion Gap 12 (12-20); Blood Urea Nitrogen 4 mg/dL (9-16); Carbon Dioxide 25 mmol/L (22-29); Chloride 102 mmol/L (96-108); Creatinine Clr Calc Pharmacy 129.4; Estimated Glomerular Filt Rate > 60; Glucose Fasting 114 mg/dL (60-99); Lipase 141 U/L (8-78); Potassium 3.9 mmol/L (3.3-5.1); Sodium 135 mmol/L (135-145)
--- NOTE | 2021-12-08 10:50 | HO.PM.IMPN ---
Subjective Subjective Date of Service: 12/08/21 Interval History: cc: abd pain interval history:still with pain, not interested in advancing diet Cardiovascular Cardiovascular: Reports no additional cardiovascular complaints Respiratory Respiratory: Reports no additional respiratory complaints Physical Exam Vital Signs: Vital Signs: Last Vital Signs Temp 97.6 F 12/08/21 08:00 Pulse 75 12/08/21 08:00 Resp 20 12/08/21 08:00 BP 129/80 12/08/21 08:00 Pulse Ox 97 12/08/21 08:00 O2 Del Method 12/08/21 08:00 BMI result Body Mass Index 32.3 General: AO X 3, in pain Resp: CTA bilateral, no accessory muscles used CVS: S1,S2,RRR GI: soft, tender, non distended, ileostomy Neuro: motor grossly intact, alert Psych: appropriate affect, appropriate insight Objective Data Active Medications Acetaminophen (Acetaminophen 325 Mg Tablet) 650 mg PO Q6H PRN PRN Reason: Pain, Mild (Pain Scale 1-3) Atorvastatin Calcium (Atorvastatin Calcium 40 Mg Tablet) 40 mg PO DAILY [facility] Last Admin: 12/08/21 07:38 Dose: 40 mg Documented By: CHARO Clonazepam (Clonazepam 1 Mg Tablet) 1 mg PO BEDTIME PRN PRN Reason: Anxiety Docusate Sodium (Docusate Sodium 100 Mg Capsule) 100 mg PO DAILY PRN PRN Reason: Constipation Enoxaparin Sodium (Enoxaparin Sodium 40 Mg/0.4 Ml Syringe) 40 mg SUBCUT Q24H [facility] Last Admin: 12/08/21 06:15 Dose: Not Given Documented By: RG Non-Admin Reason: Patient Refused Fenofibrate (Fenofibrate 160 Mg Tablet) 160 mg PO DAILY [facility] Last Admin: 12/08/21 07:38 Dose: 160 mg Documented By: CHARO Hydromorphone HCl (Hydromorphone Hcl 1 Mg/Ml Syringe) 1 mg IVPUSH Q4H PRN; Protocol PRN Reason: Pain, Severe (Pain Scale 7-10) Last Admin: 12/08/21 07:38 Dose: 1 mg Documented By: CHARO Non-Formulary Medication ([place]-3 Acid Ethyl Esters) 2 cap PO BID [facility] Omeprazole (Omeprazole 40 Mg Capsule.) 40 mg PO DAILY PRN PRN Reason: Acid Reflux Ondansetron HCl (Ondansetron Hcl 4 Mg/2 Ml Vial) 4 mg IVPUSH Q8H PRN PRN Reason: Nausea and Vomiting Last Admin: 12/07/21 06:48 Dose: 4 mg Documented By: GAIL Oxymetazoline HCl (Oxymetazoline Hcl 0.05 % Nasal 15 Ml [place]) 2 spray NOSTRIL-B Q12H PRN PRN Reason: Allergy Symptoms Pharmacy Consult (Consult Rx Perform Med Rec) 1 each MISCELLANE ONCE PRN PRN Reason: Consult order Sodium Chloride (0.9 % Sodium Chloride Flush 3 Ml Syringe) 3 ml IVFLUSH QSHIFT [facility] Last Admin: 12/08/21 07:33 Dose: Not Given Documented By: CHARO Non-Admin Reason: IV Running Labs CBC & Chem 7: 12/08/21 07:49 12/08/21 07:49 Labs: Laboratory Results - last 24 hr 12/08/21 12/08/21 07:49 07:49 MCV 76.8 L MCH 26.2 L MCHC 34.2 RDW 12.5 Plt Count 337 D MPV 9.1 L Absolute Nucleated RBC 0.000 Nucleated RBC % (auto) 0.0 Anion Gap 12 Estim Creat Clear Calc 129.4 Estimated GFR > 60 Fasting Glucose 114 H Calcium 9.0 D Lipase 141 H Microbiology Microbiology Results: Microbiology 12/05/21 15:05 Blood Culture - Preliminary Blood - Venous No growth after 48 hours. 12/05/21 15:05 Blood Culture - Preliminary Blood - Venous No growth after 48 hours. Assessment and Plan (1) Acute pancreatitis: Status: Acute Plan 41-year-old male past medical history of ulcerative colitis status post ileostomy presents to the hospital with complaints of abdominal pain found to have acute pancreatitis Acute pancreatitis. Has had history of hypertriglyceridemia in the past, denies alcohol abuse still with abdominal pain, not ready to advance diet continue ivf pain control continue clears gi following IGG pending to assess for component autoimmune pancreatitis MRI with acute pancreatitis, no PD or CBD obstruction, no gallstones Microcytic anemia chronic, mild no bleeding UC s/p colectomy and ileostomy steatohepatitis likely NAFLD obesity weight loss recommended DVT prophylaxis:? Lovenox Full code reason for continued hospitalization:ivf for pancreatitis, not tolerating po Quality Stroke Does the patient have a stroke diagnosis?: No VTE Prior VTE?: No VTE Risk Level:: Medical - moderate - high VTE Device Contraindication: Treatment Not Indicated VTE Drug Contraindication: N/A - Med Ordered
[2021-12-08 12:00] VITALS: BP 131/81; PULSE 71; RESP 18; TEMP 36.4; O2SAT 97
[2021-12-08 15:02] LABS: Immunoglobulin G Subclass 1 541 mg/dL (382-929); Immunoglobulin G Subclass 2 158 mg/dL (241-700); Immunoglobulin G Subclass 3 18 mg/dL (22-178); Immunoglobulin G Subclass 4 35.6 mg/dL (4-86); Immunoglobulin G Total 888 mg/dL (600-1640)
[2021-12-08 15:17] VITALS: BP 145/86; PULSE 69; RESP 18; TEMP 36.3; O2SAT 98
[2021-12-08] MEDS: ondansetron HCL 4 MG/2 ML VIAL IVPUSH (15:51)
[2021-12-08 20:00] VITALS: BP 147/89; PULSE 73; RESP 20; TEMP 36.9; O2SAT 96
[2021-12-08] MEDS: Omeprazole 40 MG CAPSULE.DR PO (20:54)
[2021-12-08 23:50] VITALS: BP 140/80; PULSE 63; RESP 18; TEMP 36.1; O2SAT 98
[2021-12-09] MEDS: HYDROmorphone HCl 1 MG/ML SYRINGE IVPUSH ×3 (00:43→19:44)
[2021-12-09 03:46] VITALS: BP 119/73; PULSE 60; RESP 18; TEMP 36.6; O2SAT 95
[2021-12-09] MEDS: Enoxaparin Sodium 40 MG/0.4 ML SYRINGE SUBCUT (06:25)
[2021-12-09 06:35] LABS: Hematocrit 38.1 % (42.0-52.0); Hemoglobin 12.7 g/dl (14.0-18.0); Mean Corpuscular HGB Conc 33.3 g/dl (31.0-36.0); Mean Corpuscular Hemoglobin 25.7 pg (27.0-33.0); Platelet Count 381 X10*3/uL (160-400); Red Blood Count 4.95 X10*6/uL (4.60-5.80); Red Cell Distribution Width 12.6 % (11.0-16.0)
[2021-12-09 07:18] LABS: Alanine Aminotransferase 31 U/L (0-40); Albumin Level 4.1 g/dL (3.5-5.0); Alkaline Phosphatase 197 U/L (39-117); Anion Gap 13 (12-20); Aspartate Amino Transferase 31 U/L (5-37); Bilirubin Direct 0.3 mg/dL (0.0-0.5); Bilirubin Total 0.5 mg/dL (0.0-1.0); Blood Urea Nitrogen 6 mg/dL (9-16); Calcium 9.6 mg/dL (8.4-10.2); Carbon Dioxide 25 mmol/L (22-29); Chloride 103 mmol/L (96-108); Cholesterol 182 mg/dL; Creatinine Clr Calc Pharmacy 121.4; Estimated Glomerular Filt Rate > 60; Glucose Fasting 107 mg/dL (60-99); HDL Cholesterol 32 mg/dL; LDL Cholesterol Calculated 110 mg/dl; Lipase 112 U/L (8-78); Potassium 4.1 mmol/L (3.3-5.1); Sodium 137 mmol/L (135-145); Total Protein 7.5 g/dL (6.5-8.0); Triglycerides 204 mg/dL
[2021-12-09 07:55] VITALS: BP 138/85; PULSE 69; RESP 18; TEMP 36.7; O2SAT 97
[2021-12-09] MEDS: Fenofibrate 160 MG TABLET PO (08:30)
[2021-12-09] MEDS: Atorvastatin Calcium 40 MG TABLET PO (08:30)
[2021-12-09] MEDS: Oxymetazoline HCl 0.05 % Nasal 15 ML SPRAY 2 SPRAY NOSTRIL-B (08:31)
[2021-12-09] MEDS: Acetaminophen 325 MG TABLET 650 MG PO (08:36)
[2021-12-09] MEDS: 0.9 % Sodium Chloride Flush 3 ML SYRINGE IVFLUSH ×3 (08:38→19:45)
[2021-12-09] MEDS: ondansetron HCL 4 MG/2 ML VIAL IVPUSH (09:05)
[2021-12-09] MEDS: Nystatin Cream 15 GM TUBE 1 APPL TOPICAL ×2 (10:46→19:45)
--- NOTE | 2021-12-09 10:55 | HO.PM.IMPN ---
Subjective Subjective Date of Service: 12/09/21 Interval History: cc: abd pain interval history:still with pain, but okay to advance to solids Cardiovascular Cardiovascular: Reports no additional cardiovascular complaints Respiratory Respiratory: Reports no additional respiratory complaints Physical Exam Vital Signs: Vital Signs: Last Vital Signs Temp 98.1 F 12/09/21 07:55 Pulse 69 12/09/21 07:55 Resp 18 12/09/21 07:55 BP 138/85 12/09/21 07:55 Pulse Ox 97 12/09/21 07:55 O2 Del Method 12/09/21 07:55 BMI result Body Mass Index 32.3 General: AO X 3, in pain Resp: CTA bilateral, no accessory muscles used CVS: S1,S2,RRR GI: soft, tender, non distended, ileostomy Neuro: motor grossly intact, alert Psych: appropriate affect, appropriate insight Objective Data Active Medications Acetaminophen (Acetaminophen 325 Mg Tablet) 650 mg PO Q6H PRN PRN Reason: Pain, Mild (Pain Scale 1-3) Last Admin: 12/09/21 08:36 Dose: 650 mg Documented By: KEYSHAWN Atorvastatin Calcium (Atorvastatin Calcium 40 Mg Tablet) 40 mg PO DAILY [facility] Last Admin: 12/09/21 08:30 Dose: 40 mg Documented By: KEYSHAWN Clonazepam (Clonazepam 1 Mg Tablet) 1 mg PO BEDTIME PRN PRN Reason: Anxiety Docusate Sodium (Docusate Sodium 100 Mg Capsule) 100 mg PO DAILY PRN PRN Reason: Constipation Enoxaparin Sodium (Enoxaparin Sodium 40 Mg/0.4 Ml Syringe) 40 mg SUBCUT Q24H [facility] Last Admin: 12/09/21 06:25 Dose: 40 mg Documented By: SVITLANA Fenofibrate (Fenofibrate 160 Mg Tablet) 160 mg PO DAILY [facility] Last Admin: 12/09/21 08:30 Dose: 160 mg Documented By: KEYSHAWN Hydromorphone HCl (Hydromorphone Hcl 1 Mg/Ml Syringe) 1 mg IVPUSH Q4H PRN; Protocol PRN Reason: Pain, Severe (Pain Scale 7-10) Last Admin: 12/09/21 06:24 Dose: 1 mg Documented By: SVITLANA Nystatin (Nystatin Cream 15 Gm Tube) 1 appl TOPICAL BID [facility]; Protocol Last Admin: 12/09/21 10:46 Dose: 1 appl Documented By: KEYSHAWN Omeprazole (Omeprazole 40 Mg Capsule.Dr) 40 mg PO DAILY PRN PRN Reason: Acid Reflux Last Admin: 12/08/21 20:54 Dose: 40 mg Documented By: MARGARITA Ondansetron HCl (Ondansetron Hcl 4 Mg/2 Ml Vial) 4 mg IVPUSH Q8H PRN PRN Reason: Nausea and Vomiting Last Admin: 12/09/21 09:05 Dose: 4 mg Documented By: KEYSHAWN Oxymetazoline HCl (Oxymetazoline Hcl 0.05 % Nasal 15 Ml [place]) 2 spray NOSTRIL-B Q12H PRN PRN Reason: Allergy Symptoms Last Admin: 12/09/21 08:31 Dose: 2 spray Documented By: KEYSHAWN Pharmacy Consult (Consult Rx Perform Med Rec) 1 each MISCELLANE ONCE PRN PRN Reason: Consult order Sodium Chloride (0.9 % Sodium Chloride Flush 3 Ml Syringe) [facility] Last Admin: 12/09/21 08:38 Dose: 3 ml Documented By: KEYSHAWN Labs CBC & Chem 7: 12/09/21 05:36 12/09/21 05:36 Labs: Laboratory Results - last 24 hr 12/06/21 12/09/21 12/09/21 06:04 05:36 05:36 MCV 77.0 L MCH 25.7 L MCHC 33.3 RDW 12.6 Plt Count 381 MPV 9.0 L Absolute Nucleated RBC 0.000 Nucleated RBC % (auto) 0.0 Anion Gap 13 Estim Creat Clear Calc 121.4 Estimated GFR > 60 Fasting Glucose 107 H Calcium 9.6 D Total Bilirubin 0.5 Direct Bilirubin 0.3 AST 31 D ALT 31 Alkaline Phosphatase 197 H D Total Protein 7.5 Albumin 4.1 Triglycerides 204 Cholesterol 182 LDL Cholesterol, Calc 110 HDL Cholesterol 32 Lipase 112 H IgG Total 888 IgG Subclass 1 541 IgG Subclass 2 158 L IgG Subclass 3 18 L IgG Subclass 4 35.6 Microbiology Microbiology Results: Microbiology 12/05/21 15:05 Blood Culture - Preliminary Blood - Venous No growth after 48 hours. Assessment and Plan (1) Acute pancreatitis: Status: Acute Plan 41-year-old male past medical history of ulcerative colitis status post ileostomy presents to the hospital with complaints of abdominal pain found to have acute pancreatitis Acute pancreatitis. Has had history of hypertriglyceridemia in the past, denies alcohol abuse still with abdominal pain, asking to advance to solids pain control trial of solids gi following IGG pending to assess for component autoimmune pancreatitis MRI with acute pancreatitis, no PD or CBD obstruction, no gallstones Microcytic anemia chronic, mild no bleeding UC s/p colectomy and ileostomy steatohepatitis likely NAFLD obesity weight loss recommended DVT prophylaxis:? Lovenox Full code reason for continued hospitalization: awaiting tolerance of solids Quality Stroke Does the patient have a stroke diagnosis?: No VTE Prior VTE?: No VTE Risk Level:: Medical - moderate - high VTE Device Contraindication: Treatment Not Indicated VTE Drug Contraindication: N/A - Med Ordered
[2021-12-09 11:28] VITALS: BP 118/73; PULSE 72; RESP 18; TEMP 36.4; O2SAT 97
--- NOTE | 2021-12-09 12:06 | MHC.CM.PN ---
PER MD ROUNDS, PT NOT YET MEDICALLY READY TO DC. DC PLAN CONTINUES TO BE HOME WITH NO SERVICES. FAMILY TO TRANSPORT
[2021-12-09 16:00] VITALS: BP 130/74; PULSE 87; RESP 17; TEMP 36; O2SAT 98
--- NOTE | 2021-12-09 18:33 | PM.EVENT ---
Event Note Date of Service: 12/09/21 Event Note: GI-Course noted Imp: Pancreatitis slowly improving with lipase just minimally elevated. Pancreatitis presumed secondary to hypertriglyceridemia given otherwise negative workup including IgG subtypes with normal IgG Subclass 4 level and the MRCP negative for any obvious pancreatic duct anomalies or choledocholithiasis. Rec: Agree with trying to advance diet, observe, and recheck lipase in AM. If stable, discharge over the weekend. I can see him in followup in the office and arrange for an Endoscopic U/S for further evaluation of pancreatic head and pancreatic duct depending upon his clinical course. Thanks
[2021-12-09 20:00] VITALS: BP 136/84; PULSE 85; RESP 18; TEMP 36.4; O2SAT 96
[2021-12-09 23:44] VITALS: BP 135/82; PULSE 76; RESP 18; TEMP 36.5; O2SAT 97
[2021-12-10] MEDS: ondansetron HCL 4 MG/2 ML VIAL IVPUSH ×2 (01:49→10:24)
[2021-12-10] MEDS: Acetaminophen 325 MG TABLET 650 MG PO (01:49)
[2021-12-10 03:38] VITALS: BP 129/78; PULSE 82; RESP 18; TEMP 36.6; O2SAT 97
[2021-12-10] MEDS: Enoxaparin Sodium 40 MG/0.4 ML SYRINGE SUBCUT (05:21)
[2021-12-10 06:54] LABS: Lipase 172 U/L (8-78)
[2021-12-10 07:39] VITALS: BP 117/77; PULSE 71; RESP 18; TEMP 36.4; O2SAT 96
[2021-12-10] MEDS: 0.9 % Sodium Chloride Flush 3 ML SYRINGE IVFLUSH (09:15)
[2021-12-10] MEDS: Fenofibrate 160 MG TABLET PO (09:15)
[2021-12-10] MEDS: Omeprazole 40 MG CAPSULE.DR PO (09:15)
[2021-12-10] MEDS: Atorvastatin Calcium 40 MG TABLET PO (09:15)
[2021-12-10] MEDS: Nystatin Cream 15 GM TUBE 1 APPL TOPICAL (09:17)
--- NOTE | 2021-12-10 10:08 | P.DS_ITS ---
DS: Providers Provider Date of Service: 12/10/21 Date of admission: 12/04/21 05:21 Primary care physician: Unknown Physician Consults: 12/05/21 12:58 Consult to Gastroenterology Routine Consulting Provider: Augie Bright Reason for consultation: Pacnreatitis vs duodenitis Has provider been notified: No DS: Diagnosis Discharge Diagnosis (1) Acute pancreatitis: Status: Acute DS: Summary Hospital Course Hospital Course: from initial hpi: Chief Complaint: abd pain This is a 41-year-old male with past medical history of ulcerative colitis, status post colectomy GERD, ged, HLD, presents the hospital with complaints of epigastric abdominal pain.? Patient reports the pain initially started in his back then started radiating to the front, associated with nausea no vomiting, 10/10, no worsening or alleviating factors.? no fever or chills, he is constipated.? No urinary symptoms. On arrival to the ED patient hemodynamically stable with no significant abnormal vitals Labs are significant for WBC count of 16.5, hemoglobin of 13.6, hematocrit 30.2, lipase of 241, Abdominal pelvic CT shows stranding in the central to right abdomen concerning for acute pancreatitis versus duodenitis, patient also has CT evidence of inflammatory stranding and fluid extending near bowel loops in the lateral right abdomen with no bowel obstruction seen.?? Patient will be admitted for further management of acute pancreatitis hospital course: Patient was admitted for acute pancreatitis likely due to hypertriglyceridemia. his triglycerides in hospital were not particularly high in the 200s, however patient is not always compliant with his meds and they were probed to a higher prior to presentation. IgG4 was within normal limits. Patient does not drink alcohol. He was given pain meds and IV fluids. His pain slowly improved and he was able to be advanced to solid diet which he has tolerated. MRI the abdomen revealed no pancreatic duct or CBD dilatation. Patient will be discharged home on low-fat diet and continue with fenofibrate and Lipitor. Patient has chronic microcytic anemia likely inflammatory, no evidence of bleeding. Patient has history of ulcerative colitis status post colectomy and ileostomy. He appears to be in remission. 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 Time Spent with Patient Time attestation: Total time spent providing and/or coordinating discharge services: Discharge coordination time: Greater than 30 minutes Quality: Safe Use of Opioids Does Pt have an Active Cancer Diagnosis on the Problem List?: No Quality: Stroke Does the patient have a stroke diagnosis?: No Physical Exam Vital Signs: Vital Signs: Last Vital Signs Temp 97.6 F 12/10/21 07:39 Pulse 71 12/10/21 07:39 Resp 18 12/10/21 07:39 BP 117/77 12/10/21 07:39 Pulse Ox 96 12/10/21 07:39 O2 Del Method 12/10/21 07:39 BMI result Body Mass Index 32.3 General: AO X 3, no acute distress Resp: CTA bilateral, no accessory muscles used CVS: S1,S2,RRR GI: soft, non tender, non distended Neuro: motor grossly intact, alert Psych: appropriate affect, appropriate insight DS: Data Data Completed and Pending Labs on day of discharge: Laboratory Results - last 24 hr 12/10/21 05:53 Lipase 172 H Preliminary micro results at discharge 12/05/21 15:05 Blood Culture - Preliminary Blood - Venous No growth after 48 hours. 12/05/21 15:05 Blood Culture - Preliminary Blood - Venous No growth after 48 hours. Discharge Plan Discharge Patient Disposition: Home, Self-Care Discharge Diagnosis: pancreatitis Referrals: Physician,Unknown J [Primary Care Provider] - 1 Week Discharge Medications: Continued cyanocobalamin (vitamin B-12) 500 mcg tablet, sublingual 500 mcg sublingual DAILY 30 Days Qty: 30 6RF (DME) Skin Prep Wipes Misc See Rx Instructions .Route Qty: 50 8RF Rx Instructions: As directed (DME) Stomahesive Paste Paste See Rx Instructions .Route Qty: 56.7 8RF Rx Instructions: As directed (DME) Premier Colostomy-Ileostomy 12 (2 07/03 ) misc See Rx Instructions .Route Qty: 5 8RF Rx Instructions: As directed clonazepam 1 mg tablet 1 tab PO BEDTIME PRN (Reason: Anxiety) omeprazole 40 mg capsule,delayed release(DR/EC) 40 mg PO DAILY PRN (Reason: Acid Reflux) oxymetazoline [Afrin (oxymetazoline)] 0.05 % [place],Non-Aerosol 2 spray INTRANASAL Q12H PRN (Reason: Allergy Symptoms) red yeast rice 600 mg Capsule 1,200 mg PO DAILY Rx Instructions: give with meal/snack cholecalciferol (vitamin D3) 50 mcg (2,000 unit) capsule 50 mcg PO DAILY 30 Days Qty: 30 11RF omega-3 acid ethyl esters 1 gram capsule 2 cap PO BID 30 Days Qty: 120 6RF fenofibrate 160 mg tablet 160 mg PO DAILY 30 Days Qty: 30 11RF atorvastatin 40 mg tablet 40 mg PO DAILY 30 Days Qty: 30 11RF Discharge Orders: Discharge Order (Routine); Ordered 12/10/21 Ordered By: Parth Heck Diet: other Activity on Discharge: As tolerated Stand Alone Forms: Patient Portal Discharge page Care Plan Goals: recovery Health Concerns: pancreatitis Plan of Treatment: low fat diet, continue fenofibrate, lipitor Assessment: see above
--- NOTE | 2021-12-10 10:34 | MHC.CM.PN ---
HOME - SELF CARE RN AWARE
[2021-12-10 11:32] VITALS: BP 116/77; PULSE 81; RESP 18; TEMP 36.6; O2SAT 98
[2021-12-10] MEDS: 0.9 % Sodium Chloride 1,000 ML 999 ML IV (14:19)
== END 2021-12-10 15:30 | disposition home or self-care (01) | DRG 282 ==
LOC: HO.ED 12-04 03:08 → HO.EDOVER 12-04 06:21 → HO.IMC 12-04 18:38 → HO.S3 12-08 06:22
PROVIDERS: Internal Medicine; Nurse Practitioner Acute Care; Student in an Organized Health Care Education/Training Program; Admitting Provider Internal Medicine; Emergency Provider Emergency Medicine Emergency Medical Services; Visit Provider Internal Medicine
DX: K85.80 Other acute pancreatitis without necrosis or infection (principal); K76.0 Fatty (change of) liver, not elsewhere classified; D53.9 Nutritional anemia, unspecified; E78.1 Pure hyperglyceridemia; E66.9 Obesity, unspecified; Z68.32 Body mass index [BMI] 32.0-32.9, adult; Z91.14 Patient's other noncompliance with medication regimen; Z93.2 Ileostomy status; Z20.822 Contact with and (suspected) exposure to COVID-19; Z87.891 Personal history of nicotine dependence; Z88.8 Allergy status to other drugs, medicaments and biological substances; Z79.899 Other long term (current) drug therapy
CPT/HCPCS: 36415; 74176; 74183; 76705; 80048; 80053; 80061; 80076; 81003; 82784; 83690; 84478; 85025; 85027; 87040; 87635; 96361; 96374; 96375; 99285; A9585; J1170; J1650; J2405

== ENCOUNTER → 2021-12-05 08:37 | Outpatient (BNVA) | payer OTHER, SELFPAY | PROVIDERS: PCP Physician Assistant; Visit Provider Internal Medicine | DX: Z13.89 Encounter for screening for other disorder (principal) ==

== ENCOUNTER → 2022-05-18 11:37 | Outpatient (BNVA) | payer OTHER, SELFPAY | PROVIDERS: PCP Physician Assistant; Visit Provider Dietitian, Registered | DX: E66.9 Obesity, unspecified (principal); Z68.31 Body mass index [BMI] 31.0-31.9, adult | CPT/HCPCS: 97803 ==

== ENCOUNTER 2022-05-21 11:14 | Inpatient (IN) | payer OTHER, SELFPAY ==
--- NOTE | ~2022-05-21 | XR_ITS ---
EXAMINATION: XR CHEST CLINICAL INFORMATION: Line placement COMPARISON: None TECHNIQUE: Frontal portable view of the chest was obtained. 4:02 PM FINDINGS: Right IJ catheter projecting just inferior to the diaphragm, in the inferior vena cava. Catheter tip is about 7 cm distal to the caval atrial junction. No pneumothorax. Lungs are normally aerated. No primary vascular congestion. No pleural effusion. Heart size normal. Cardiac and mediastinal contours are normal. XR/XR chest 1V IMPRESSION: Right IJ catheter projecting just inferior to the diaphragm, in the inferior vena cava. No pneumothorax.
--- NOTE | ~2022-05-21 | XR_ITS ---
EXAMINATION: XR CHEST CLINICAL INFORMATION: Triple lumen placement COMPARISON: Chest radiograph earlier today TECHNIQUE: Frontal view of the chest was obtained. FINDINGS: Since the study earlier today, the right IJ catheter appears to be in about the same position at the IVC right atrial junction. If the desired position is in the proximal atria, this could be pulled back 4.8 cm. No pneumothorax. No other interval change since the study of just over one hour ago. XR/XR chest 1V IMPRESSION: The right IJ catheter is in about the IVC right atrial junction. If the desired position is in the proximal atria, this could be pulled back 4.8 cm.
--- NOTE | ~2022-05-21 | CT_ITS ---
EXAMINATION: CT ABDOMEN AND PELVIS WITH CONTRAST CLINICAL INFORMATION: Abdominal pain. Pancreatitis. COMPARISON: Previous CT of the abdomen and pelvis most recent from yesterday TECHNIQUE: Multidetector volumetric images were obtained from the superior aspect of the liver through the pubic symphysis following administration 85 mL of Omnipaque 350 intravenous contrast. Sagittal and coronal reformatted images were obtained on the technologist's workstation. Oral contrast: Yes This CT examination was performed using dose optimization techniques as appropriate, variously including the following: *Automated exposure control *Adjustment of mA and/or kV according to patient size (this includes techniques or standardized protocols for targeted exams where dose is matched to indication/reason for exam; i.e. extremities or head) *Use of iterative reconstruction technique DLP: 556 mGy-cm FINDINGS: LUNG BASES: There is atelectasis at the lung bases, left greater than right, increased from yesterday's exam. LIVER, GALLBLADDER, AND BILIARY TREE: The liver is slightly enlarged and low in attenuation suggestive of fatty infiltration. No focal liver lesion. Dependent layering increased attenuation in the gallbladder. This may represent vicarious excretion of yesterday's IV contrast as this is new from yesterday's exam. No intra or extrahepatic biliary duct dilatation. PANCREAS: The pancreas enhances normally. The pancreas is slightly enlarged. There is interval increase in peripancreatic fluid and fat stranding. There is interval increase in fluid and fat stranding in the small bowel mesentery and left anterior pararenal fascia and left paracolic gutter. SPLEEN: Stable small subcentimeter low-attenuation lesion in the spleen probably representing a cyst.. ADRENAL GLANDS: Unremarkable. KIDNEYS AND URETERS: Small low-attenuation right renal lesions suggestive of cysts. No imaging follow-up. Kidneys are otherwise unremarkable. BLADDER: Not optimally distended. GASTROINTESTINAL TRACT: Postsurgical changes following colectomy and right lower quadrant ileostomy. Small parastomal hernia containing small bowel. Increasing fluid adjacent to the greater curvature of the stomach. ABDOMINAL WALL: Small parastomal hernia containing small bowel. No evidence of obstruction. LYMPH NODES: Small retroperitoneal lymph nodes. No enlarged lymph nodes. VASCULAR: IVC filter. PELVIC VISCERA: Unremarkable. OSSEOUS STRUCTURES: Unremarkable. CT/CT abdomen pelvis w IV con IMPRESSION: Worsening pancreatitis. No evidence of pancreatic necrosis. Fatty liver. Small right renal and splenic cysts. Fleischner guidelines were followed.
--- NOTE | ~2022-05-21 | CT_ITS ---
EXAMINATION: CT ABDOMEN AND PELVIS WITH CONTRAST CLINICAL INFORMATION: abdominal pain ? acute pancreatitis COMPARISON: 12/04/2021 TECHNIQUE: Multidetector volumetric imaging was performed from the superior aspect of the liver through the pubic symphysis following administration of 85 mL Omnipaque 300 intravenous contrast. Sagittal and coronal reformatted images were obtained on the technologist workstation.. This CT examination was performed using dose optimization techniques as appropriate, variously including the following: *Automated exposure control *Adjustment of mA and/or kV according to patient size (this includes techniques or standardized protocols for targeted exams where dose is matched to indication/reason for exam; i.e. extremities or head) *Use of iterative reconstruction technique DLP: 722 mGy-cm FINDINGS: LUNG BASES: Mild bibasilar dependent atelectasis LIVER, GALLBLADDER, AND BILIARY TREE: Diffuse fatty infiltration of the liver with mild focal fatty sparing adjacent to the gallbladder fossa. No focal hepatic lesion nor biliary ductal dilatation. The gallbladder is unremarkable with no evidence of radiopaque gallstones, gallbladder wall thickening, or obvious pericholecystic inflammatory changes. PANCREAS: There is peripancreatic inflammatory change and fluid in the region the pancreatic tail which is new from the prior study. This likely represents sequela of acute interstitial pancreatitis. I do not appreciate any evidence for pancreatic necrosis or discrete drainable collection at this time. No pancreatic ductal dilatation. SPLEEN: Low-attenuation possible cyst in the posterior spleen similar to the prior study ADRENAL GLANDS: Unremarkable. KIDNEYS AND URETERS: Tiny cortical cysts bilaterally. Otherwise the kidneys are normal in size, shape, and attenuation. No hydronephrosis, hydroureter, or calculi seen. No perinephric stranding. BLADDER: Unremarkable. GASTROINTESTINAL TRACT: Patient appears to be status post total colectomy with a right lower quadrant ileostomy. No obstructive changes to the visualized bowel. ABDOMINAL WALL: No significant hernia is appreciated. LYMPHOVASCULAR STRUCTURES: No lymphadenopathy. The aorta is unremarkable. IVC filter in place. PELVIC VISCERA: Unremarkable. OSSEOUS STRUCTURES: Unremarkable. CT/CT abdomen pelvis w IV con IMPRESSION: 1. There is new peripancreatic inflammatory change and fluid in the region of the pancreatic tail suggesting acute interstitial pancreatitis. I do not appreciate any evidence for pancreatic necrosis or discrete drainable collection at this time. No pancreatic ductal dilatation. 2. Chronic appearing and postoperative changes otherwise as described.
--- NOTE | 2022-05-21 11:19 | ED.ABDPAIN ---
HPI - Abdominal Pain General Chief Complaint: Abdominal Pain Stated Complaint: Pancreatitis Time Seen by Provider: 05/21/22 11:18 Source: patient Mode of arrival: ambulatory Limitations: no limitations History of Present Illness HPI narrative: 42 yo M with a PMH of colitis s/p colectomy with ostomy, GERD, HLD, anxiety, and acute pancreatitis with concurrent liver inflammation presents to the ED for complaints of left sided abdominal pain and nausea. He reports pain began this morning at home which he attributes to a flare up of acute pancreatitis. He took Motrin this morning at home with no relief in symptoms. He felt similar symptoms 1 week ago, took motrin and rested with relief of symptoms at that time. He has an ostomy and denies any color changes, blood, or volume of output. He states he has been able to tolerate PO intake without vomiting. He denies any fever, chills, vomiting, changes in vision, or headache. When reviewing old notes, pt was hospitalized November 2021 for similar symptoms and discharged after fluid replacement and pain management. He states he was discharged home on a low-fat diet with recommendations to continue fenofibrate and Lipitor. He states that he frequently forgets to take his medications and has not been adhering to a low-fat diet. He reports occassional use of marijuana and denies use of alcohol or any other drugs. MD elicited complaint: abdominal pain Pertinent past history: other (pancreatitis) Onset (ago): hour(s) Pain Consistency: constant Location: LUQ and LLQ Severity: severe Pain scale (0-10): 10 Quality: sharp Radiation: none Migration to: no migration Exacerbating factors: nothing Relieving factors: nothing Associated symptoms: nausea Treatments prior to arrival: NSAIDs Related Data Home Medications Medication Instructions Recorded Confirmed omeprazole 40 mg capsule,delayed 40 mg PO DAILY PRN Acid Reflux 10/24/21 01/25/22 release ibuprofen 200 mg tablet (Advil) 400 mg PO Q8H PRN Pain 05/21/22 Previous Rx's Medication Instructions Recorded colostomy-Ileost.set,nonsteril 12 #5 ea 11/02/21 (2 07/03 ) (Premier Colostomy-Ileostomy) ostomy adhesive (Stomahesive Paste) #56.7 grams 11/02/21 ostomy supplies (Skin Prep Wipes) #50 ea 11/02/21 fenofibrate 160 mg tablet 160 mg PO DAILY 30 days #30 tabs 01/25/22 Allergies Allergy/AdvReac Type Severity Reaction Status Date / Time cetirizine [From [facility]] AdvReac Mild Nightmare Verified 01/25/22 09:23 lactose AdvReac Unknown Diarrhea Verified 01/25/22 09:23 Review of Systems Review of Systems Yes all other systems are reviewed and are negative Constitutional: Reports no additional constitutional complaints, Denies chills, Denies fever(s), Denies headache(s) and Denies weight gain Eyes: Reports no additional eye complaints and Denies change in vision Reports system reviewed and no additional complaints, except as documented, Reports Normal hearing present and Denies headache(s) Cardiovascular: Reports no additional cardiovascular complaints, Denies chest pain and Denies dyspnea Respiratory: Reports no additional respiratory complaints and Denies dyspnea Gastrointestinal: Reports abdominal pain, Denies melena, Reports bloating, Denies hematochezia, Denies change in stool character and Reports nausea Genitourinary: Reports no additional male genitourinary complaints Musculoskeletal: Reports no additional musculoskeletal complaints, Denies numbness and Denies tingling Skin/Breast: Reports system reviewed and no additional complaints, except as docu Reports system reviewed and no additional complaints, except as documented, Reports Normal hearing present, Denies headache(s), Denies numbness and Denies tingling Psychiatric: Reports no additional psychiatric complaints, Denies anxiety and Denies change in appetite Endocrine: Reports no additional endocrine complaints Hematologic/Lymphatic: Reports no additional hematologic/lymphatic complaints, Denies easy bleeding and Denies easy bruising PMFSH Past Medical History Attestation statement: The following information was validated with the patient. Source: old records reviewed Medical History B12 deficiency H/O acute pancreatitis H/O deep venous thrombosis HLD (hyperlipidemia) Presence of IVC filter Ulcerative colitis Vitamin D deficiency Zinc deficiency Surgical History History of colectomy History of ileostomy History of ileostomy History of resection of rectum Family History Family History Father CVD (cardiovascular disease) Mother Hypertension Diabetes Maternal Grandmother Liver cancer Maternal Grandfather CVD (cardiovascular disease) Family/Other Diabetes Social History Social History Household Members: Family Housing: House Do you presently have visiting nurse or other home services: No Alcohol intake: never Patient Tobacco Use Status: Former Tobacco user e-Cigarette/Vaping Use: Never Used Advance Directives: No Advance Directives Information Provided: No service: No Current occupational status: disabled Cognitive needs: No Hearing needs: No Vision needs: No Physical Exam ED Vital Signs: Vital Signs - 24 hr 05/21/22 11:24 05/21/22 12:29 05/21/22 16:00 Temperature 98.2 F 97.7 F 97.8 F Pulse Rate 73 72 74 Respiratory Rate 18 14 16 Blood Pressure 139/86 137/85 124/71 Pulse Oximetry 98 97 95 Oxygen Delivery Method Room Air Room Air Room Air BMI result Body Mass Index 31.9 Const General: cooperative, alert and awake Nutritional Appearance: well nourished Orientation/consciousness: patient oriented x3 Limitations: no limitations HENMT Head: Yes normal to inspection, Yes normocephalic and Yes atraumatic Ears: hearing grossly normal bilaterally and external ears normal General nose exam: Normal external nose present Face and sinus: Yes normal facial exam Mouth: Normal oral and palatal mucosa present Eyes General: appearance normal, both eyes and all related structures Alignment and Position: alignment normal Periorbital: periorbital findings normal Eyelids: Yes eyelids normal Conjunctivae: conjunctivae normal Sclerae: sclerae normal Pupils: Equal, round and reactive pupils present EOM: EOMs intact bilaterally Neck Neck: Yes normal visual inspection and Yes full ROM Chest Chest palpation & inspection: normal inspection of the chest Resp Effort & Inspection: normal respiratory effort, able to speak in complete sentences and not labored Auscultation: clear to auscultation bilaterally Cardio Rate: regular rate Rhythm: regular rhythm GI Inspection: Yes scar and Yes other (colostomy RLQ) Palpation (GI): Soft to palpation, Firmness to palpation present (GI) (semifirm), Tenderness to palpation present (GI), no guarding and not rigid Auscultation: normal bowel sounds General: Yes no CVA tenderness Back/Spine/Pelvis Back: no CVA tenderness Cervical Spine: cervical ROM normal Skin General skin exam: no rashes or lesions noted and scars (midline abdominal scar, several other post surgical scars noted on abdomen ) Neuro General: patient oriented x3 and moves all extremities Cranial nerves: Yes Equal, round and reactive pupils present and Yes Normal hearing present Cognition (Neuro): normal cognition Gait exam (Neuro): Normal gait present Motor exam (neuro): 5/5 motor strength present throughout Sensory Exam: Normal double simultaneous stimulation for sensation Extrem General: Yes normal to inspection, Yes full ROM and Yes capillary refill normal Psych Appearance: grossly normal and well kempt Mental Status: mental status grossly normal Speech and movement: Normal speech and movement present Affect: normal affect Attitude: cooperative Thought process: Normal thought process present Thought content: Normal thought content present Insight: Good insight present (Psych) Judgement: Good judgement present (Psych) Medications Administered Discontinued Medications Generic Name Dose Route Start Last Admin Trade Name Freq PRN Reason Stop Dose Admin Acetaminophen 650 mg 05/21/22 11:46 05/21/22 12:02 Acetaminophen 325 Mg Tablet PO 05/21/22 11:47 650 mg ONCE ONE Administration Hydromorphone HCl 1 mg 05/21/22 11:46 05/21/22 12:00 Hydromorphone Hcl 1 Mg/Ml Syringe IVPUSH 05/21/22 11:47 1 mg ONCE ONE Administration Protocol Hydromorphone HCl 1 mg 05/21/22 15:43 05/21/22 15:51 Hydromorphone Hcl 1 Mg/Ml Syringe IVPUSH 05/21/22 15:44 1 mg ONCE ONE Administration Protocol Sodium Chloride 250 mls @ 999 mls/hr 05/21/22 12:00 05/21/22 13:07 Ns IV 05/21/22 12:15 Not Given .Q16M DARRYL Sodium Chloride 1,000 mls @ 999 mls/hr 05/21/22 12:05 05/21/22 13:07 Ns IV 05/21/22 13:04 Infused .Q1H1M DARRYL Infusion Sodium Chloride 1,000 mls @ 999 mls/hr 05/21/22 15:45 05/21/22 16:57 Ns IV 05/21/22 16:45 Infused .Q1H1M DARRYL Infusion Iohexol 100 ml 05/21/22 13:42 05/21/22 13:43 Iohexol 350 Mg/Ml 100 Ml Infus..Btl IV 05/21/22 13:43 85 ml ONCE ONE Administration Metoclopramide HCl 10 mg 05/21/22 17:06 05/21/22 17:34 Metoclopramide Hcl 10 Mg/2 Ml Vial IVPUSH 05/21/22 17:07 10 mg ONCE ONE Administration Ondansetron HCl 4 mg 05/21/22 11:55 05/21/22 12:02 Ondansetron Hcl 4 Mg/2 Ml Vial IVPUSH 05/21/22 11:56 4 mg ONCE ONE Administration MDM - Abdominal Pain MDM Narrative Medical decision making narrative: 42 yo M with history of acute pancreatitis presents to the ED with left sided abdominal pain and nausea that began this morning. Pt appears uncomfortable on physical exam with semifirm abdomen on palpation. Pt medicated with IV Dilaudid and Zofran with good relief of pain and nausea. NS bolus given. Blood work shows elevated amylase, lipase, and LFTs. No leukocytosis noted. CT abdomen/pelvis shows acute interstitial pancreastis, no necrosis. Kristofer score 0 (Age 42, WBC 7.4, glucose 99, AST 138, LDH 249). Physical findings and test results explained to patient and family without any unanswered questions. Pt educated on the importance of taking medications as prescribed. 1545: Pt states his pain is 10/10 after ambulating to and from the bathroom. Urine sample collected and noted to be clear, concentrated yellow. Pt states he is too uncomfortable to try taking PO. Pt medicated with IV Dilaudid with moderate relief of pain and additional NS bolus given 1630: Pt continues to endorse abdominal pain 5/10 with return of nausea. Dr Self contacted regarding pt disposition with plan to admit patient for acute pancreatitis for further management. Plan discussed with patient and family and in agreement. No unanswered questions at this time. Differential Diagnosis Differential diagnosis: Likely pancreatitis Medical Records Attestation: I reviewed the patient's medical records. Lab Data Attestation: I reviewed the patient's lab results. Result diagrams: 05/21/22 11:52 05/21/22 11:52 Labs: Lab Results 05/21/22 05/21/22 Range/Units 11:52 11:52 WBC 7.4 (4.8-10.8) X10*3/uL RBC 5.40 (4.60-5.80) X10*6/uL Hgb 14.9 (14.0-18.0) g/dl Hct 41.2 L (42.0-52.0) % MCV 76.3 L (80.0-98.0) fL MCH 27.6 (27.0-33.0) pg MCHC 36.2 H (31.0-36.0) g/dl RDW 13.3 (11.0-16.0) % Plt Count 287 (160-400) X10*3/uL MPV 9.5 (9.4-12.4) fL Immature Gran % (Auto) 0.4 (0.0-0.4) % Neut % (Auto) 50.4 (45-73) % Lymph % (Auto) 34.5 (20-40) % [place] % (Auto) 8.7 (2-11) % Eos % (Auto) 5.6 H (0-4) % Baso % (Auto) 0.4 (0-2) % Lymph # (Auto) 2.5 (1.2-4.9) X10*3/uL [place] # (Auto) 0.6 (0.1-1.2) X10*3/uL Eos # (Auto) 0.4 (0.0-0.4) X10*3/uL Baso # (Auto) 0.0 (0.0-0.2) X10*3/uL Abs Immat Gran (auto) 0.03 (0.00-0.03) X10*3/uL Absolute Neuts (auto) 3.7 (2.0-8.3) x10*3/uL Absolute Nucleated RBC 0.000 (0.0-0.012) X10*3/uL Nucleated RBC % (auto) 0.0 (0.0-0.2) /100WBC Sodium 137 (135-145) mmol/L Potassium 4.6 (3.3-5.1) mmol/L Chloride 106 (96-108) mmol/L Carbon Dioxide 20 L (22-29) mmol/L Anion Gap 16 (12-20) BUN 8 L (9-16) mg/dL Creatinine 0.96 (0.5-1.4) mg/dL Estim Creat Clear Calc 119.3 Estimated GFR > 60 Random Glucose 99 (60-115) mg/dL Calcium 9.7 (8.4-10.2) mg/dL Total Bilirubin 0.6 (0.0-1.0) mg/dL AST 44 H (5-37) U/L ALT 57 H (0-40) U/L Alkaline Phosphatase 104 (39-117) U/L Lactate Dehydrogenase 249 (118-273) U/L Total Protein 8.1 H (6.5-8.0) g/dL Albumin 4.5 (3.5-5.0) g/dL Amylase 138 H (28-100) U/L Lipase 618 H (8-78) U/L Imaging Data CT scan - abdomen: My impression: Acute interstitial pancreatitis. No necrosis Radiologist's impression: EXAMINATION: CT ABDOMEN AND PELVIS WITH CONTRAST CLINICAL INFORMATION: abdominal pain ? acute pancreatitis COMPARISON: 12/04/2021? TECHNIQUE: Multidetector volumetric imaging was performed from the superior aspect of the liver through the pubic symphysis following administration of 85 mL Omnipaque 300 intravenous contrast. Sagittal and coronal reformatted images were obtained on the technologist workstation.. This CT examination was performed using dose optimization techniques as appropriate, variously including the following: *Automated exposure control *Adjustment of mA and/or kV according to patient size (this includes techniques or standardized protocols for targeted exams where dose is matched to indication/reason for exam; i.e. extremities or head) *Use of iterative reconstruction technique DLP: 722 mGy-cm FINDINGS: LUNG BASES: Mild bibasilar dependent atelectasis? LIVER, GALLBLADDER, AND BILIARY TREE: Diffuse fatty infiltration of the liver with mild focal fatty sparing adjacent to the gallbladder fossa. No focal hepatic lesion nor biliary ductal dilatation. The gallbladder is unremarkable with no evidence of radiopaque gallstones, gallbladder wall thickening, or obvious pericholecystic inflammatory changes.? PANCREAS: There is peripancreatic inflammatory change and fluid in the region the pancreatic tail which is new from the prior study. This likely represents sequela of acute interstitial pancreatitis. I do not appreciate any evidence for pancreatic necrosis or discrete drainable collection at this time. No pancreatic ductal dilatation.? SPLEEN: Low-attenuation possible cyst in the posterior spleen similar to the prior study? ADRENAL GLANDS: Unremarkable.? KIDNEYS AND URETERS: Tiny cortical cysts bilaterally. Otherwise the kidneys are normal in size, shape, and attenuation. No hydronephrosis, hydroureter, or calculi seen. No perinephric stranding. ? BLADDER: Unremarkable.? GASTROINTESTINAL TRACT: Patient appears to be status post total colectomy with a right lower quadrant ileostomy. No obstructive changes to the visualized bowel.? ABDOMINAL WALL: No significant hernia is appreciated.? LYMPHOVASCULAR STRUCTURES: No lymphadenopathy. The aorta is unremarkable. IVC filter in place. PELVIC VISCERA: Unremarkable. OSSEOUS STRUCTURES: Unremarkable.? CT/CT abdomen pelvis w IV con IMPRESSION: 1.? There is new peripancreatic inflammatory change and fluid in the region of the pancreatic tail suggesting acute interstitial pancreatitis. I do not appreciate any evidence for pancreatic necrosis or discrete drainable collection at this time. No pancreatic ductal dilatation. 2.? Chronic appearing and postoperative changes otherwise as described. ? Dictated By: Baudilio Gabriel MD Signed By: <Electronically signed by Baudilio Gabriel MD in [place]> 05/21/22 1446 DD/ 1341 TD/TT:? Fire Behavior Analyst: [place] Discharge Plan Discharge Clinical Impression: Acute pancreatitis Patient Disposition: Admitted As Inpatient
[2022-05-21 11:24] VITALS: BP 139/86; PULSE 73; RESP 18; TEMP 36.8; O2SAT 98; BMI 31.9
--- OUTSIDE RECORDS SUMMARY | 2022-05-21 11:29 | XMS_ITS ---
:1980 Author Organization [facility] Address [address] [place] [address] Care Team Providers Name Role Phone Pilo Lan Jr Unavailable Unavailable PROBLEMS Type Condition ICD9-CM Code VFI47-SE Code Onset Condition SNO MED Code Dates Status Problem Ileostomy status Z93.2 Active 302 [id number] Problem Ulcerative K51.90 Active colitis without complications, unspecified location Problem Ulcerative K51.90 Active 55234991 colitis, unspecified Problem Acute K85.90 Active [id number] pancreatitis without infection or necrosis, unspecified pancreatitis type ALLERGIES No Known Allergies ENCOUNTERS Encounter Location Date Diagnosis [place] [address] Aug, [facility] [address] [place] [address] [place] [address] Jan, [facility] [address] [place] [address] [place] [address] Jan, Ulcerati ve colitis without [facility] [address] [place] complicati [place], unspecified [address] location K51.90 ; Acute pancreatitis wit hout infection or nec rosis, unspecified panc reatitis type K85.90 and Ileostomy status Z93.[address] [place] [address] Apr, [facility] [address] [place] [address] Apr, [facility] [address] [place] [address] [place] [address] Dec, [facility] [address] [place] [address] [facility] [address] Aug, Ulcerati ve colitis, [facility] [address] [place] unspecifie d K51.90 [address] [facility] [address] Jun, [facility] [address] [place] [address] [facility] [address] Jun, [facility] [address] [place] [address] [facility] [address] Jan, [facility] [address] [place] [address] [facility] [address] Apr, [facility] [address] [place] [address] [facility] [address] Mar, [facility] [address] [place] [address] [facility] [address] Mar, [facility] [address] [place] [address] [place] [address] Dec, [facility] [address] [place] [address] [facility] [address] Dec, Ulcerati ve colitis 556.[address] [facility] [address] [place] and Ileost ingrid present [address] V44.2 IMMUNIZATIONS Vaccine Route Administration Date Status Influenza Unknown Feb 21, 2021 Administered SOCIAL HISTORY Never Assessed REASON FOR REFERRAL FUNCTIONAL STATUS PLAN OF CARE Activity Details Follow Up 6 Months Reason: Future Appointment Provider Name:Augie Bright , 2022-05-31 02:40:00 PM, [address], [address], [place], [address], VITAL SIGNS Weight 205 lbs 2021-02-21 Weight 204 lbs 2017-09-26 Weight 204 lbs 2014-12-31 Height 70 in 2021-02-21 Height 70 in 2017-09-26 Height 70 in 2014-12-31 BMI 29.41 kg/m2 2021-02-21 BMI 29.27 kg/m2 2017-09-26 BMI 29.27 kg/m2 2014-12-31 Heart Rate 84 /min 2014-12-31 Temperature 98.0 degrees Fahrenheit 2021-02-21 Blood pressure systolic 000 mm Hg 2021-02-21 Blood pressure diastolic 00 mm Hg 2021-02-21 MEDICATIONS Medication Instructions Dosage Frequency Start End Duration Statu s Date Date Fish Oil 1000 MG Orally Once a 1 capsule 24h Active day Gemfibrozil 600 TAKE 1 30 Active MG TABLET BY MOUTH TWICE A DAY FOR 30 DAYS oxyCODONE ER Active prednisoLONE Active ALPRAZolam 1 MG (Schedule 30 Active IV Drug) TAKE 1 TABLET BY MOUTH EVERY DAY AT BEDTIME PROCEDURES Procedure Date Ordered Result Body Site DOC RSN FOR NOT SCREEN/REC F/U HBP Feb 21, 2021 Pt scrn tbco id as non user Feb 21, 2021 DOC MEDS VERIFIED W/PT OR RE Feb 21, 2021 RESULTS Name Result Date Reference Range Lipase 2021-12-10 Lipase 172 8-78 Liver Panel 2021-12-06 Bilirubin Total 1.4 0.0-1.0 Bilirubin Direct 0.7 0.0-0.5 Aspartate Amino Transferase 17 5-37 Alanine Aminotransferase 21 0-40 Total Protein 6.3 6.5-8.0 Albumin Level 3.5 3.5-5.0 Alkaline Phosphatase 102 39-117 Triglycerides 2021-12-06 Triglycerides 273 Lipase 2021-12-06 Lipase 99 8-78 Immunoglobulin G Subclasses 2021-12-06 Immunoglobulin G Subclass 1 [phone] Immunoglobulin G Subclass 2 158 241- 700 Immunoglobulin G Subclass 3 18 22-1 78 Immunoglobulin G Subclass 4 35.6 4-86 Immunoglobulin G Total [phone] Complete Blood Count no Diff 2021-02-22 White Blood Count 6.5 4.8-10.8 Red Blood Count 5.38 4.60-5.80 Hemoglobin 13.7 14.0-18.0 Hematocrit 41.5 42-52 Mean Corpuscular Volume 77.1 80-98 Mean Corpuscular Hemoglobin 25.5 27.0 -33.0 Mean Corpuscular HGB Conc 33.0 31.0-3 6.0 Red Cell Distribution Width 13.1 11.0 -16.0 Platelet Count 375 160-400 Mean Platelet Volume 9.8 9.4-12.4 NRBC Pct Auto 0.0 0.0-0.2 NRBC Abs Auto 0.000 0.0-0.012 Erythrocyte Sedimentation Rate 2021-02-22 Erythrocyte Sedimentation Rate 8 0 -15 Liver Panel 2021-02-22 Bilirubin Total 0.4 0.0-1.0 Bilirubin Direct < 0.2 0.0-0.5 Aspartate Amino Transferase 16 5-37 Alanine Aminotransferase 19 0-40 Total Protein 7.5 6.5-8.0 Albumin Level 4.4 3.5-5.0 Alkaline Phosphatase 86 39-117 Bilirubin Total 0.4 0.0-1.0 Bilirubin Direct < 0.2 0.0-0.5 Aspartate Amino Transferase 16 5-37 Alanine Aminotransferase 19 0-40 Total Protein 7.5 6.5-8.0 Albumin Level 4.4 3.5-5.0 Alkaline Phosphatase 86 39-117 Triglycerides 2021-02-22 Triglycerides 369 Triglycerides 369 T4 Thyroxine 2021-02-22 T4 Thyroxine 6.9 4.5-12.0 Thyroid Stimulating Hormone 2021-02-22 Thyroid Stimulating Hormone TNP 0.32 -4.0 Thyroid Stimulating Hormone 0.65 0.32 -4.0 CHEM 7 PROFILE 2020-02-11 NA 132 135-145 K 5.3 3.3-5.1 CL 103 96-108 CO2 18 22-29 ANION GAP 16 12-20 GLUCOSE,RANDOM 95 60-115 BUN 7 9-16 CREATININE 0.99 0.5-1.4 ESTIMATED GFR > 60 ESTIMATED CrCl 116.0 LIVER PROFILE 2020-02-11 PROTEIN, TOTAL 6.8 6.5-8.0 ALBUMIN 3.7 3.5-5.0 BILIRUBIN, TOTAL 0.5 0.0-1.0 BILIRUBIN, DIRECT 0.2 0.0-0.5 ALK. PHOS. 127 39-117 GOT 36 5-37 GPT 42 0-40 LIPASE 2020-02-11 LIPASE 295 8-78 IRON + IBC (FE) 2020-02-11 IRON 135 45-160 IBC 317 228-428 % SATURATION 43 20-50 FERRITIN 2020-02-11 FERRITIN 456 20-250 US ABD 2020-02-11 XR GI SMALL BOWEL SERIES 2017-12-12 REASON FOR VISIT Patient presents today for pancreatitis, Pt no show, Patient presents today for abdominal pain, labs/ update, Patient presents today for ulcerative colitis, Update Demographics - Personal Info, Update Demographics - Personal Info, Pt no show, patient presents today for FOLLOW UP, HFU, PATIENT PRESENTS TODAY FOR HFU for U/C, requesting sooner appt then august, Pt no show, PATIENT PRESENTS TODAY FOR Crohns , PATIENT PRESENTS TODAY FOR crohns, 6 month f/u, Pt no show, 6 month f/u, Wants pt seen sooner, pancreatitis, ? if pt needs sooner appt, crohn's disease Insurance Providers [facility] Member Patient Patient Patient Patient Patient Subscriber Subscriber Subscriber Group Insurance Plan Plan Plan Plan ID Relationship Address Phone Name Date of ID Name Date of No Type Insurance Insurance Insurance Coverage to Subscriber Address Phone Name Dates [employer] [phone] [employer] [id number] [facility] [address] [place] [address] Plan [id number] [employer] [phone] [employer] self KAMARI [id number] [facility] [address] [place] [address] Plan [id number]
[2022-05-21 11:56] LABS: MANUAL DIFF FLAG NO
[2022-05-21 11:58] LABS: Basophils Percent Auto 0.4 % (0-2); Eosinophils Absolute Auto 0.4 X10*3/uL (0.0-0.4); Eosinophils Percent Auto 5.6 % (0-4); Hematocrit 41.2 % (42.0-52.0); Hemoglobin 14.9 g/dl (14.0-18.0); Imm Gran Abs Auto 0.03 X10*3/uL (0.00-0.03); Imm Gran Pct Auto 0.4 % (0.0-0.4); Lymphocytes Absolute Auto 2.5 X10*3/uL (1.2-4.9); Lymphocytes Percent Auto 34.5 % (20-40); Mean Corpuscular HGB Conc 36.2 g/dl (31.0-36.0); Mean Corpuscular Hemoglobin 27.6 pg (27.0-33.0); Mean Corpuscular Volume 76.3 fL (80.0-98.0); Mean Platelet Volume 9.5 fL (9.4-12.4); Monocytes Absolute Auto 0.6 X10*3/uL (0.1-1.2); Monocytes Percent Auto 8.7 % (2-11); Neutrophils Absolute Auto 3.7 x10*3/uL (2.0-8.3); Neutrophils Percent Auto 50.4 % (45-73); Platelet Count 287 X10*3/uL (160-400); Red Cell Distribution Width 13.3 % (11.0-16.0); White Blood Count 7.4 X10*3/uL (4.8-10.8)
[2022-05-21] MEDS: HYDROmorphone HCl 1 MG/ML SYRINGE IVPUSH ×4 (12:00→22:34)
[2022-05-21] MEDS: ondansetron HCL 4 MG/2 ML VIAL IVPUSH ×2 (12:02→18:46)
[2022-05-21] MEDS: Acetaminophen 325 MG TABLET 650 MG PO (12:02)
[2022-05-21] MEDS: 0.9 % Sodium Chloride 1,000 ML 999 ML IV ×2 (12:07→15:50)
[2022-05-21 12:29] VITALS: BP 137/85; PULSE 72; RESP 14; TEMP 36.5; O2SAT 97
[2022-05-21 13:04] LABS: Alanine Aminotransferase 57 U/L (0-40); Albumin Level 4.5 g/dL (3.5-5.0); Alkaline Phosphatase 104 U/L (39-117); Amylase 138 U/L (28-100); Anion Gap 16 (12-20); Aspartate Amino Transferase 44 U/L (5-37); Bilirubin Total 0.6 mg/dL (0.0-1.0); Blood Urea Nitrogen 8 mg/dL (9-16); Calcium 9.7 mg/dL (8.4-10.2); Carbon Dioxide 20 mmol/L (22-29); Chloride 106 mmol/L (96-108); Creatinine Clr Calc Pharmacy 119.3; Estimated Glomerular Filt Rate > 60; Glucose Random 99 mg/dL (60-115); Potassium 4.6 mmol/L (3.3-5.1); Sodium 137 mmol/L (135-145); Total Protein 8.1 g/dL (6.5-8.0)
[2022-05-21 13:15] LABS: Lipase 618 U/L (8-78)
[2022-05-21] MEDS: iohexoL 350 MG/ML 100 ML INFUS..BTL IV (13:43)
[2022-05-21 15:35] LABS: Lactate Dehydrogenase 249 U/L (118-273)
[2022-05-21 16:00] VITALS: BP 124/71; PULSE 74; RESP 16; TEMP 36.6; O2SAT 95
[2022-05-21] MEDS: Metoclopramide HCl 10 MG/2 ML VIAL IVPUSH (17:34)
--- NOTE | 2022-05-21 17:49 | PHA.MEDREC ---
Pharmacy Consult ? Medication Reconciliation Pharmacy has completed the medication reconciliation. Patient reports being on atorvastatin, but hasn't taken in weeks because they claimed it gave them blurry vision and joint pain .
[2022-05-21 17:59] LABS: COVID-19 Test Negative (Negative); IDNOW Serial# 55D5AD1C
--- NOTE | 2022-05-21 18:22 | P.HPHOSP_ITS ---
History of Present Illness Date of Service: 05/21/22 Chief Complaint: Abdominal pain A 42 years old male with PMH of ulcerative colitis post colectomy on colostomy, acute pancreatitis,, HLD, obesity along others who presents to the hospital complaining of abdominal pain for the last 2 days. The patient reports that since yesterday he has been having abdominal pain mainly in the left-sided his abdomen that did not resolve with home medications of Advil. He felt similar send Tums 1 week ago but that resolved. He denies any alcohol consumption over the last few diff time. Today he could not tolerate food he felt nauseous but denies any fever, chills, vomiting, change in bowel habit, urinary symptoms. In the emergency CT scan showed evidence of pancreatitis with associated elevated lipase. Review of Systems Review of Systems: No fever, chills or weakness No chest pain, palpitation No shortness of breath or coughing Abdominal pain with associated nausea No urinary symptoms No any rash or wounds PMFSH Medical History B12 deficiency H/O acute pancreatitis H/O deep venous thrombosis HLD (hyperlipidemia) Presence of IVC filter Ulcerative colitis Vitamin D deficiency Zinc deficiency Family History Father CVD (cardiovascular disease) Mother Hypertension Diabetes Maternal Grandmother Liver cancer Maternal Grandfather CVD (cardiovascular disease) Family/Other Diabetes Surgical History History of colectomy History of ileostomy History of ileostomy History of resection of rectum Social History Household Members: Family Housing: House Do you presently have visiting nurse or other home services: No Alcohol intake: never Patient Tobacco Use Status: Former Tobacco user e-Cigarette/Vaping Use: Never Used Advance Directives: No Advance Directives Information Provided: No service: No Current occupational status: disabled Cognitive needs: No Hearing needs: No Vision needs: No Meds Allergies Allergy/AdvReac Type Severity Reaction Status Date / Time cetirizine [From Zyrtec] AdvReac Mild Nightmare Verified 01/25/22 09:23 lactose AdvReac Unknown Diarrhea Verified 01/25/22 09:23 Active Medications: Current Medications Enoxaparin Sodium (Enoxaparin Sodium 40 Mg/0.4 Ml Syringe) 40 mg SUBCUT Q24H DARRYL Fenofibrate (Fenofibrate 160 Mg Tablet) 160 mg PO DAILY DARRYL Hydromorphone HCl (Hydromorphone Hcl 1 Mg/Ml Syringe) 1 mg IVPUSH Q4H PRN; Protocol PRN Reason: Pain, Severe (Pain Scale 7-10) Sodium Chloride (Sodium Chloride 0.45 %) 1,000 mls @ 150 mls/hr IVCONT .Q6H40M DARRYL Omeprazole (Omeprazole 40 Mg Capsule.Dr) 40 mg PO DAILY PRN PRN Reason: Acid Reflux Ondansetron HCl (Ondansetron Hcl 4 Mg/2 Ml Vial) 4 mg IVPUSH Q8H PRN PRN Reason: Nausea and Vomiting Pharmacy Consult (Consult Rx Perform Med Rec) 1 each MISCELLANE ONCE PRN PRN Reason: Consult order Home Medications Medication Instructions Recorded Confirmed Last Taken Type omeprazole 40 mg capsule,delayed 40 mg PO DAILY PRN Acid Reflux 10/24/21 05/21/22 12/03/21 History release ibuprofen 200 mg tablet (Advil) 400 mg PO Q8H PRN Pain 05/21/22 05/21/22 Unknown History Physical Exam Vital Signs and Narrative: Vital Signs: Last Vital Signs Temp 97.8 F 05/21/22 16:00 Pulse 74 05/21/22 16:00 Resp 16 05/21/22 16:00 BP 124/71 05/21/22 16:00 Pulse Ox 95 05/21/22 16:00 O2 Del Method 05/21/22 16:00 BMI result Body Mass Index 31.9 Const: Other: Constitutional : Awake, interactive, not in distress Neck : Normal inspection, Supple Cardiovascular : RRR, no JVP, no lower extremity edema Respiratory : good bilateral air entry, no crackles, wheezes or rhonchi Gastrointestinal: soft, lax, decreased bowel sounds, generalized abdominal tenderness mainly in the left upper quadrant, Center surgical scar, colostomy in place with dark colored stool Skin : Warm, Dry Neurological : Alert & oriented x3, No focal deficit , CN 2-12 within normal Results Labs CBC and Chem 7: 05/21/22 11:52 05/21/22 11:52 Labs: Laboratory Results - last 24 hr 05/21/22 05/21/22 05/21/22 11:52 11:52 17:39 MCV 76.3 L MCH 27.6 MCHC 36.2 H RDW 13.3 Plt Count 287 MPV 9.5 Immature Gran % (Auto) 0.4 Neut % (Auto) 50.4 Lymph % (Auto) 34.5 [place] % (Auto) 8.7 Eos % (Auto) 5.6 H Baso % (Auto) 0.4 Lymph # (Auto) 2.5 [place] # (Auto) 0.6 Eos # (Auto) 0.4 Baso # (Auto) 0.0 Abs Immat Gran (auto) 0.03 Absolute Neuts (auto) 3.7 Absolute Nucleated RBC 0.000 Nucleated RBC % (auto) 0.0 Anion Gap 16 Estim Creat Clear Calc 119.3 Estimated GFR > 60 Random Glucose 99 Calcium 9.7 Total Bilirubin 0.6 AST 44 H ALT 57 H Alkaline Phosphatase 104 Lactate Dehydrogenase 249 Total Protein 8.1 H Albumin 4.5 Amylase 138 H Lipase 618 H COVID-19 (CAL) Negative COVID-19 Clin Com See Note Imaging Radiologist's Impressions: Impressions Abdomen/Pelvis CT 05/21/22 13:41 IMPRESSION: 1. There is new peripancreatic inflammatory change and fluid in the region of the pancreatic tail suggesting acute interstitial pancreatitis. I do not appreciate any evidence for pancreatic necrosis or discrete drainable collection at this time. No pancreatic ductal dilatation. 2. Chronic appearing and postoperative changes otherwise as described. Assessment and Plan (1) Acute pancreatitis: Status: Acute (2) Inflammatory bowel diseases (IBD): Status: Acute Plan A 42 years old male with PMH of ulcerative colitis post colectomy on colostomy, acute pancreatitis,, HLD, obesity along others who presents to the hospital complaining of abdominal pain for the last 2 days. Acute pancreatitis Secondary to chronic inflammatory bowel disease CT scan as reported Start IV fluids Morphine for pain medication Keep NPO HLD Check profile of lipids Fenofibrate continue GERD Continue omeprazole DVT prophylaxis Lovenox Quality Stroke Does the patient have a stroke diagnosis?: No VTE Prior VTE?: No VTE Risk Level:: Medical - moderate - high VTE Device Contraindication: Treatment Not Indicated VTE Drug Contraindication: N/A - Med Ordered
[2022-05-21] MEDS: Sodium Chloride 0.45 % 1,000 ML 150 ML IVCONT (18:44)
[2022-05-21 19:01] VITALS: BP 132/86; PULSE 80; RESP 16; TEMP 37.1; O2SAT 98
--- OUTSIDE RECORDS SUMMARY | 2022-05-21 19:02 | XMS_ITS ---
:1980 Author Organization [facility] Address [address] [place] [address] Care Team Providers Name Role Phone Pilo Lan Jr Unavailable Unavailable PROBLEMS Type Condition ICD9-CM Code JFU77-DC Code Onset Condition SNO MED Code Dates Status Problem Ileostomy status Z93.2 Active [id number] Problem Ulcerative K51.90 Active colitis without complications, unspecified location Problem Ulcerative K51.90 Active 19888945 colitis, unspecified Problem Acute K85.90 Active [id number] pancreatitis without infection or necrosis, unspecified pancreatitis type ALLERGIES No Known Allergies ENCOUNTERS Encounter Location Date Diagnosis [facility] [address] Aug, [facility] [address] [place] [address] [facility] [address] Jan, [facility] [address] [place] [address] [facility] [address] Jan, Ulcerati ve colitis without [facility] [address] [place] complicati ons, unspecified [address] location K51.90 ; Acute pancreatitis wit hout infection or nec rosis, unspecified panc reatitis type K85.90 and Ileostomy status Z93.[address] [facility] [address] Apr, [facility] [address] [place] [address] Apr, [facility] [address] [place] [address] [facility] [address] Dec, [facility] [address] [place] [address] [facility] [address] Aug, Ulcerati ve colitis, [facility] [address] [place] unspecifie d K51.90 [address] [facility] [address] Jun, [facility] [address] [place] [address] [facility] [address] Jun, [facility] [address] [place] [address] [facility] [address] Jan, [facility] [address] [place] [address] [facility] [address] Apr, [facility] [address] [place] [address] [facility] [address] Mar, [facility] [address] [place] [address] [facility] [address] Mar, [facility] [address] [place] [address] [place] [address] Dec, [facility] [address] [place] [address] [facility] [address] Dec, Ulcerati ve colitis 556.[address] [facility] [address] [place] and Ileost ingrid present [address] V44.2 IMMUNIZATIONS Vaccine Route Administration Date Status Influenza Unknown Feb 21, 2021 Administered SOCIAL HISTORY Never Assessed REASON FOR REFERRAL FUNCTIONAL STATUS PLAN OF CARE Activity Details Follow Up 6 Months Reason: Future Appointment Provider Name:Augie Bright , 2022-05-31 02:40:00 PM, [address], [address], [place], [address], VITAL SIGNS Weight 205 lbs 2021-02-21 Weight [...] Subclass 4 35.6 4-86 Immunoglobulin G Total [phone] Complete Blood Count no Diff 2021-02-22 White [...] needs sooner appt, crohn's disease Insurance Providers [facility] Health Member Patient Patient Patient Patient Patient Subscriber Subscriber Subscriber Group Insurance Plan Plan Plan Plan ID Relationship Address Phone Name Date of ID Name Date of No Type Insurance Insurance Insurance Coverage to Subscriber Address Phone Name Dates [email or web address] [phone] [employer] [id number] [facility] [address] [place] [address] Plan [id number] [email or web address] [phone] [email or web address] self KAMARI [id number] [facility] [address] [place] [address] Plan [id number]
--- NOTE | 2022-05-21 19:26 | PC.NURSE ---
Attempt to call report to TAI Guerra on S3
[2022-05-21 19:33] LABS: Cholesterol 857 mg/dL; HDL Cholesterol 32 mg/dL; Triglycerides 4480 mg/dL
--- NOTE | 2022-05-21 19:34 | PC.NURSE ---
Pt. c/o nausea and has an episode of emesis x1. Stated that Zofran didn't help him. Notified Hospitalist Edgar Us MD for additional medication.
[2022-05-21] MEDS: Enoxaparin Sodium 40 MG/0.4 ML SYRINGE SUBCUT (21:25)
[2022-05-21 23:49] VITALS: BP 134/74; PULSE 87; RESP 18; TEMP 36.9; O2SAT 95
[2022-05-22] VITALS (17 sets, daily range): BP systolic 109–139; BP diastolic 65–81; PULSE 92–112; RESP 17–31; TEMP 36.2–38.5; O2SAT 93–97
[2022-05-22] MEDS: Sodium Chloride 0.45 % 1,000 ML 150 ML IVCONT ×2 (01:18→07:49)
[2022-05-22] MEDS: Morphine Sulfate 2 MG/ML CARTRIDGE 4 MG IVPUSH ×3 (02:15→09:50)
[2022-05-22] MEDS: Morphine Sulfate 4 MG/ML CARTRIDGE IVPUSH (05:05)
[2022-05-22 06:40] LABS: Hemoglobin 14.4 g/dl (14.0-18.0); Mean Corpuscular HGB Conc 34.3 g/dl (31.0-36.0); Mean Corpuscular Volume 75.9 fL (80.0-98.0); Platelet Count 273 X10*3/uL (160-400); Red Blood Count 5.53 X10*6/uL (4.60-5.80); Red Cell Distribution Width 13.2 % (11.0-16.0); White Blood Count 14.2 X10*3/uL (4.8-10.8)
[2022-05-22 07:29] LABS: Anion Gap 14 (12-20); Blood Urea Nitrogen 6 mg/dL (9-16); Carbon Dioxide 21 mmol/L (22-29); Chloride 98 mmol/L (96-108); Creatinine Clr Calc Pharmacy 143.2; Estimated Glomerular Filt Rate > 60; Glucose Random 118 mg/dL (60-115); Sodium 129 mmol/L (135-145)
[2022-05-22] MEDS: ondansetron HCL 4 MG/2 ML VIAL IVPUSH ×2 (07:36→17:31)
[2022-05-22 07:38] LABS: Calcium 8.6 mg/dL (8.4-10.2)
--- NOTE | 2022-05-22 08:22 | MHC.CM.PN ---
Addendum entered by Wilma Staples RN 05/22/22 08:30: HUGO 05/22 IN PATIENT ROOM ON TABLE. PATIENT STATES 9/10 PAIN AND ASKING TO PARTICIPATE IN CONVERSATION ONCE HE IS FEELING BETTER CONTACT CARD PROVIDED FOR PATIENT Original Note: PATIENT IS FULLY INDEPENDENT. NO DME OR VNA SERVICES. NO HCP ON FILE CASE MANAGEMENT TO ASSIST WITH COMPLETION IF HE CHOOSES TO DO SO.
[2022-05-22] MEDS: Fenofibrate 160 MG TABLET PO (09:51)
[2022-05-22] MEDS: 0.9 % Sodium Chloride 1,000 ML 200 ML IVCONT (11:25)
[2022-05-22] MEDS: HYDROmorphone HCl 2 MG/ML VIAL 1.5 MG IVPUSH ×3 (11:46→20:52)
--- NOTE | 2022-05-22 13:02 | P.PNIM_ITS ---
Subjective Subjective Date of Service: 05/22/22 Interval History: Seen and evaluated this moning complaining of worsening of abdominal pain still npo no other overnight events Review of Systems No fever, chills or weakness No chest pain, palpitation No shortness of breath or coughing Abdominal pain with associated nausea No urinary symptoms No any rash or wounds Physical Exam Vital Signs: Vital Signs: Last Vital Signs Temp 98.4 F 05/22/22 11:28 Pulse 93 05/22/22 11:28 Resp 18 05/22/22 11:28 BP 129/76 05/22/22 11:28 Pulse Ox 94 05/22/22 11:28 O2 Del Method 05/22/22 11:28 BMI result Body Mass Index 31.9 Const: Other: Constitutional : Awake, interactive, not in distress Neck : Normal inspection, Supple Cardiovascular : RRR, no JVP, no lower extremity edema Respiratory : good bilateral air entry, no crackles, wheezes or rhonchi Gastrointestinal: soft, lax, decreased bowel sounds, moderate generalized abdominal tenderness mainly in the left upper quadrant with guarding, Center surgical scar, colostomy in place with dark colored stool Skin : Warm, Dry Neurological : Alert & oriented x3, No focal deficit , CN 2-12 within normal Objective Data Active Medications Enoxaparin Sodium (Enoxaparin Sodium 40 Mg/0.4 Ml Syringe) 40 mg SUBCUT Q24H [facility] Last Admin: 05/21/22 21:25 Dose: 40 mg Documented By: ANANT Fenofibrate (Fenofibrate 160 Mg Tablet) 160 mg PO DAILY [facility] Last Admin: 05/22/22 09:51 Dose: 160 mg Documented By: ROQUE Hydromorphone HCl (Hydromorphone Hcl 2 Mg/Ml Vial) 1.5 mg IVPUSH Q3H PRN; Protocol PRN Reason: Pain, Severe (Pain Scale 7-10) Last Admin: 05/22/22 11:46 Dose: 1.5 mg Documented By: ROQUE Sodium Chloride (Ns) 1,000 mls @ 200 mls/hr IVCONT .Q5H [facility] Last Admin: 05/22/22 11:25 Dose: 200 mls/hr Documented By: ROQUE Omeprazole (Omeprazole 40 Mg Capsule.Dr) 40 mg PO DAILY PRN PRN Reason: Acid Reflux Ondansetron HCl (Ondansetron Hcl 4 Mg/2 Ml Vial) 4 mg IVPUSH Q8H PRN PRN Reason: Nausea and Vomiting Last Admin: 05/22/22 07:36 Dose: 4 mg Documented By: ROQUE Pharmacy Consult (Consult Rx Perform Med Rec) 1 each MISCELLANE ONCE PRN PRN Reason: Consult order Simethicone (Simethicone 80 Mg Tab.Chew) 80 mg PO QIDWMHS [facility] Labs CBC & Chem 7: 05/22/22 05:51 05/22/22 05:51 Labs: Laboratory Results - last 24 hr 05/21/22 05/21/22 05/22/22 11:52 17:39 05:51 MCV 75.9 L MCH 26.0 L MCHC 34.3 RDW 13.2 Plt Count 273 MPV 10.0 Absolute Nucleated RBC 0.000 Nucleated RBC % (auto) 0.0 Anion Gap 16 Estim Creat Clear Calc 119.3 Estimated GFR > 60 Random Glucose 99 Calcium 9.7 Total Bilirubin 0.6 AST 44 H ALT 57 H Alkaline Phosphatase 104 Lactate Dehydrogenase 249 Total Protein 8.1 H Albumin 4.5 Triglycerides 4480 Cholesterol 857 D LDL Cholesterol, Calc TNP HDL Cholesterol 32 Amylase 138 H Lipase 618 H COVID-19 (CAL) Negative COVID-19 Clin Com See Note 05/22/22 05:51 MCV MCH MCHC RDW Plt Count MPV Absolute Nucleated RBC Nucleated RBC % (auto) Anion Gap 14 Estim Creat Clear Calc 143.2 Estimated GFR > 60 Random Glucose 118 H Calcium 8.6 D Total Bilirubin AST ALT Alkaline Phosphatase Lactate Dehydrogenase Total Protein Albumin Triglycerides Cholesterol LDL Cholesterol, Calc HDL Cholesterol Amylase Lipase COVID-19 (CAL) COVID-19 Clin Com Assessment and Plan (1) Acute pancreatitis: Status: Acute Plan A 42 years old male with PMH of ulcerative colitis post colectomy on colostomy, acute pancreatitis,, HLD, obesity along others who presents to the hospital complaining of abdominal pain for the last 2 days. Acute pancreatitis Secondary to chronic inflammatory bowel disease , not alcoholic, lipid profile CT scan as reported IV fluids, increase rate to 200cc\hr Dilaudid for pain medication repeat CT abd w Contrast Elevated TG of 4500, discussed with ICU, to trasnfer over for insuline drip Keep NPO HLD Check profile of lipids Fenofibrate continue GERD Continue omeprazole DVT prophylaxis Lovenox Patient will need overnight hospital stay for insulin drip to treat hypertriglyceridemia. Quality Stroke Does the patient have a stroke diagnosis?: No VTE Prior VTE?: No VTE Risk Level:: Medical - moderate - high VTE Device Contraindication: Treatment Not Indicated VTE Drug Contraindication: N/A - Med Ordered
--- NOTE | 2022-05-22 13:35 | W.PM.CCCN ---
History of Present Illness Data of Consult Service Date: 05/22/22 Requesting physician: Sebas Self Primary Care Provider: DORA Barbosa Reason for consult: Acute pancreatitis/hypertriglyceridemia 42-year-old moderately obese male, nondiabetic and nonhypertensive presents with acute abdominal pain triglyceride level in excess of 4000 and evidence of acute pancreatitis corroborated on CT scan with a background abdominal history of ulcerative colitis status post total colectomy and ileostomy and has been and asymptomatic from the bowel standpoint ever since but this is at least his 2nd or possibly 3rd bout of acute pancreatitis Transfer down for an IV insulin drip the patient is in significant pain with associated nausea and some vomiting and low-grade temperature with extremely tender abdominal exam almost diffusely Seen by surgery and review of his CT scan showed no evidence of free air just extensive inflammatory changes in the peripancreatic region no evidence of ileus Laboratory connolly otherwise he is hyponatremic as the only other abnormality Because there was no IV access I had to place a central line via the right internal jugular vein without complication tip is near the inferior vena cava but clinically he probably has a CVP of 0 definitely intravascularly depleted and we placed a Jung catheter for the purpose of being able to follow abdominal pressure and urine output With the tip of the CVP in the mouth of the inferior vena cava we have a mean pressure of 6 and an abdominal pressure of 7 so will continue with volume replacement and insulin drip Review of Systems Review of Systems: Yes all other systems are reviewed and are negative [facility] Past Medical History Medical History B12 deficiency H/O acute pancreatitis H/O deep venous thrombosis HLD (hyperlipidemia) Presence of IVC filter Ulcerative colitis Vitamin D deficiency Zinc deficiency Family History Family History Father CVD (cardiovascular disease) Mother Hypertension Diabetes Maternal Grandmother Liver cancer Maternal Grandfather CVD (cardiovascular disease) Family/Other Diabetes Surgical History Surgical History History of colectomy History of ileostomy History of ileostomy History of resection of rectum Social History Social History Household Members: Other Household Members Other:: girlfriend and children Housing: House Do you presently have visiting nurse or other home services: No Alcohol intake: never Patient Tobacco Use Status: Former Tobacco user e-Cigarette/Vaping Use: Never Used Use of substances other than those prescribed or required for medical reasons: Yes Substance Use Type: Marijuana Substance Use Frequency: Occasionally Last Used Substance Other:: yesterday Currently Displaying Signs/Symptoms of Drug Intoxication Withdrawal: No Any prior treatment program specific to substance use: No Have you been hit, kicked, punched, or otherwise hurt by someone within the past year? If so, by whom?: No Do you feel safe in your current relationship?: Yes Is there a partner from a previous relationship who is making you feel unsafe now?: No Are you made to feel afraid or neglected: No [facility] Practices: lutheran Advance Directives: No Advance Directives Information Provided: No Do you have thoughts of harming others: None Do you have a plan to hurt others: No Plan Recently lost weight without trying: Unsure Nutrition Risks: No Nutritional Risk service: No Current occupational status: disabled Cognitive needs: No Hearing needs: No Vision needs: No Meds Allergies Allergy/AdvReac Type Severity Reaction Status Date / Time cetirizine [From [facility]] AdvReac Mild Nightmare Verified 01/25/22 09:23 lactose AdvReac Unknown Diarrhea Verified 01/25/22 09:23 Active Medications: Current Medications Enoxaparin Sodium (Enoxaparin Sodium 40 Mg/0.4 Ml Syringe) 40 mg SUBCUT Q24H [facility] Last Admin: 05/21/22 21:25 Dose: 40 mg Hydromorphone HCl (Hydromorphone Hcl 2 Mg/Ml Vial) 1.5 mg IVPUSH Q3H PRN; Protocol PRN Reason: Pain, Severe (Pain Scale 7-10) Last Admin: 05/22/22 11:46 Dose: 1.5 mg Sodium Chloride (Ns) 1,000 mls @ 200 mls/hr IVCONT .Q5H DARRYL Last Admin: 05/22/22 11:25 Dose: 200 mls/hr Ondansetron HCl (Ondansetron Hcl 4 Mg/2 Ml Vial) 4 mg IVPUSH Q8H PRN PRN Reason: Nausea and Vomiting Last Admin: 05/22/22 07:36 Dose: 4 mg Pantoprazole Sodium (Pantoprazole Sodium 40 Mg/10 Ml Vial) 40 mg IVPUSH BID@0630,1630 [facility] Pharmacy Consult (Consult Rx Perform Med Rec) 1 each MISCELLANE ONCE PRN PRN Reason: Consult order Home Medications Medication Instructions Recorded Confirmed Last Taken Type omeprazole 40 mg capsule,delayed 40 mg PO DAILY PRN Acid Reflux 10/24/21 05/21/22 12/03/21 History release ibuprofen 200 mg tablet (Advil) 400 mg PO Q8H PRN Pain 05/21/22 05/21/22 Unknown History Physical Exam Vital Signs: Vital Signs: Last Vital Signs Temp 98.4 F 05/22/22 11:28 Pulse 93 05/22/22 11:28 Resp 18 05/22/22 11:28 BP 129/76 05/22/22 11:28 Pulse Ox 94 05/22/22 11:28 O2 Del Method 05/22/22 11:28 BMI result Body Mass Index 31.9 In this and significant distress with abdominal pain Awake alert oriented no encephalopathy nonfocal neurologically Bedside echo normal LV size and function and now we have CVP to follow volume Abdomen very guarded diffusely with severe diffuse pain to palpation cannot trial judge rebound but there are bowel sounds Peripherally skin is intact no acrocyanosis Lungs clear no adventitious sounds Results Labs CBC & Chem 7: 05/23/22 06:50 05/23/22 15:03 Labs: Short CBC 05/22/22 Range/Units 05:51 WBC 14.2 H (4.8-10.8) X10*3/uL Hgb 14.4 (14.0-18.0) g/dl Hct 42.0 (42.0-52.0) % Plt Count 273 (160-400) X10*3/uL BMP 05/22/22 05:51 Sodium 129 L Potassium 4.0 Chloride 98 Carbon Dioxide 21 L BUN 6 L Creatinine 0.80 Calcium 8.6 D Assessment and Plan (1) Acute pancreatitis: Status: Acute (2) Sinusitis: Status: Acute (3) Inflammatory bowel diseases (IBD): Status: Acute (4) Annual physical exam: Status: Acute (5) Acute pancreatitis: Qualifiers: Acute pancreatitis complication: no infection or necrosis Pancreatitis type: idiopathic Qualified Code(s): K85.00 - Idiopathic acute pancreatitis without necrosis or infection Status: Acute (6) Sleep disorder breathing: Status: Acute (7) Infection of lip: Status: Acute (8) Lumbar disc herniation with radiculopathy: Status: Acute (9) Right knee injury: Qualifiers: Encounter type: initial encounter Qualified Code(s): S89.91XA - Unspecified injury of right lower leg, initial encounter Status: Acute (10) Injury of lumbar spine: Qualifiers: Encounter type: initial encounter Qualified Code(s): S34.109A - Unspecified injury to unspecified level of lumbar spinal cord, initial encounter Status: Acute (11) Infected nasal abrasion: Qualifiers: Encounter type: initial encounter Qualified Code(s): S00.31XA - Abrasion of nose, initial encounter; L08.9 - Local infection of the skin and subcutaneous tissue, unspecified Status: Acute (12) Presence of ileostomy: Status: Acute (13) Lumbar radiculopathy, chronic: Status: Acute (14) HLD (hyperlipidemia): Status: Acute (15) Constipation by delayed colonic transit: Status: Acute (16) Annual physical exam: Status: Acute (17) Allergic rhinitis: Status: Acute (18) Obesity: Status: Acute (19) Colitis: Status: Acute (20) Zinc deficiency: Status: Acute (21) B12 deficiency: Status: Acute (22) Vitamin D deficiency: Status: Acute (23) Presence of IVC filter: Status: Acute (24) Chronic nasal congestion: Status: Acute (25) Nasal sinus congestion: Status: Acute (26) Obese: Qualifiers: Obesity type: due to excess calories Obesity classification: adult class 1 (BMI 30 - 34.9) Serious obesity comorbidity presence: without serious comorbidity Body mass index: BMI 30.0-30.9 Qualified Code(s): E66.09 - Other obesity due to excess calories; Z68.30 - Body mass index [BMI]30.0-30.9, adult Status: Acute (27) Low libido: Status: Acute (28) GERD without esophagitis: Status: Acute (29) H/O acute pancreatitis: Status: Acute (30) CASSIA (generalized anxiety disorder): Status: Acute (31) Hypertriglyceridemia: Status: Acute Plan Insulin drip and aggressive hydration and will follow his triglyceride in lipase and clinical status of course and on an as-needed basis his abdominal pressure but thus far the course is uncomplicated
--- OUTSIDE RECORDS SUMMARY | 2022-05-22 13:37 | XMS_ITS ---
:1980 Author Organization [facility] Address [address] [place] [address] Care Team Providers Name Role Phone Pilo Lan Jr Unavailable Unavailable PROBLEMS Type Condition ICD9-CM Code EGJ53-AU Code Onset Condition SNO MED Code Dates Status Problem Ileostomy status Z93.2 Active 302 [id number] Problem Ulcerative K51.90 Active colitis without complications, unspecified location Problem Ulcerative K51.90 Active [id number] colitis, unspecified Problem Acute K85.90 Active [id number] pancreatitis without infection or necrosis, unspecified pancreatitis type ALLERGIES No Known Allergies ENCOUNTERS Encounter Location Date Diagnosis [place] [address] Aug, [facility] [address] [place] [address] [place] [address] Jan, [facility] [address] [place] [address] [place] [address] Jan, Ulcerati ve colitis without [facility] [address] [place] complic[place], unspecified [address] location K51.90 ; Acute pancreatitis wit hout infection or nec rosis, unspecified panc reatitis type K85.90 and Ileostomy status Z93.[address] [place] [address] Apr, [facility] [address] [place] [address] Apr, [facility] [address] [place] [address] [place] [address] Dec, [facility] [address] [place] [address] [facility] [address] Aug, Ulcerati ve colitis, [facility] [address] [place] unspecifie d K51.90 [address] [facility] [address] Jun, [facility] [address] [place] [address] [facility] [address] Jun, [facility] [address] [place] [address] [facility] [address] Jan, [facility] [address] [place] [address] [facility] [address] Apr, [facility] [address] [place] [address] [facility] [address] Mar, [facility] [address] [place] [address] [facility] [address] Mar, [facility] [address] [place] [address] [place] [address] Dec, [facility] [address] [place] [address] [facility] [address] Dec, Ulcerati ve colitis [address] [facility] [address] [place] and Ileost ingrid present [address] V44.2 IMMUNIZATIONS Vaccine Route Administration Date Status Influenza Unknown Feb 21, 2021 Administered SOCIAL HISTORY Never Assessed REASON FOR REFERRAL FUNCTIONAL STATUS PLAN OF CARE Activity Details Follow Up 6 Months Reason: Future Appointment Provider Name:Augie Bright , 2022-05-31 02:40:00 PM, [address], [address], [place], [address], VITAL SIGNS Weight 205 lbs 2021-02-21 Weight [...] Subclass 4 35.6 4-86 Immunoglobulin G Total [phone] Complete Blood Count no Diff 2021-02-22 White [...] sooner appt, crohn's disease Insurance Providers Formerly [facility] Health Member Patient Patient Patient Patient Patient Subscriber Subscriber Subscriber Group Insurance Plan Plan Plan Plan ID Relationship Address Phone Name Date of ID Name Date of No Type Insurance Insurance Insurance Coverage to Subscriber Address Phone Name Dates Quartzy [phone] [place] [id number] [facility] [address] [place] [address] Plan [id number] Quartzy [phone] Quartzy self KAMARI [id number] [facility] [address] [place] [address] Plan [id number]
--- NOTE | 2022-05-22 13:39 | PM.CNGS ---
History of Present Illness Consult details Consult date: 05/22/22 <Vera Tao PA-C - Last Filed: 05/22/22 14:11> Reason for consult: other (pancreatitis) <DORA Marrero Last Filed: 05/22/22 14:11> Requesting physician: Sebas Self <Vera Tao PA-C - Last Filed: 05/22/22 14:11> Narrative: A 42 year old male with PMH significant for ulcerative colitis s/p colectomy with end ileostomy, hx of DVT with IVC filter in place, hx of acute pancreatitis, HLD who presented to the ED with complaints of abdominal pain for 2 days. The patient reported he had acute onset of pain in the left side of his abdomen. He took advil with no relief. The next day, he developed nausea and could not tolerate food intake prompting him to seek evaluation. He denies fever, chills, vomiting, diarrhea, change in bowel habits, urinary symptoms. His ileostomy has been functioning normally. Work up in the ED included a CT scan which showed peripancreatic inflammatory change and fluid with associated elevated lipase consistent with acute pancreatitis. His triglyceride level was 4480. He has a history of acute pancreatitis presumed secondary to hypertriglyceridemia. He was admitted to the medical service for further treatment. <Vera Tao PA-C Last Filed: 05/22/22 14:11> Review of Systems Constitutional: Constitutional: Denies chills and Denies fever(s) <Vera Tao PA-C Last Filed: 05/22/22 14:11> ENT: Denies dizziness <Vera Tao PA-C Last Filed: 05/22/22 14:11> Cardiovascular: Cardiovascular: Denies palpitations and Denies dyspnea <DORA Marrero Last Filed: 05/22/22 14:11> Respiratory: Respiratory: Denies cough and Denies dyspnea <DORA Marrero Last Filed: 05/22/22 14:11> Gastrointestinal: Gastrointestinal: Reports as per HPI <DORA Marrero Last Filed: 05/22/22 14:11> Genitourinary: Genitourinary: Denies hematuria and Denies dysuria <Vera Tao PA-C - Last Filed: 05/22/22 14:11> Integumentary/Breasts: Skin/Breast: Denies rash and Denies jaundice <Vera Tao PA-C Last Filed: 05/22/22 14:11> Neurologic: Denies dizziness <Vera Tao PA-C Last Filed: 05/22/22 14:11> Endocrine: Endocrine: Denies palpitations <Vera Tao PA-C Last Filed: 05/22/22 14:11> [facility] Past Medical History Medical History: Medical History (Updated 05/24/22 @ 08:20 by Ignacio Harris MD) B12 deficiency H/O acute pancreatitis H/O deep venous thrombosis HLD (hyperlipidemia) Hypertriglyceridemia Presence of IVC filter Ulcerative colitis Vitamin D deficiency Zinc deficiency <Vera Tao PA-C Last Filed: 05/22/22 14:11> Family History Family History: Family History Father CVD (cardiovascular disease) Mother Hypertension Diabetes Maternal Grandmother Liver cancer Maternal Grandfather CVD (cardiovascular disease) Family/Other Diabetes <Vera Tao PA-C Last Filed: 05/22/22 14:11> Surgical History Surgical History: Surgical History History of colectomy History of ileostomy History of ileostomy History of resection of rectum <Vera Tao PA-C Last Filed: 05/22/22 14:11> Social History Social History: Social History Household Members: Other Household Members Other:: girlfriend and children Housing: House Do you presently have visiting nurse or other home services: No Alcohol intake: never Patient Tobacco Use Status: Former Tobacco user e-Cigarette/Vaping Use: Never Used Use of substances other than those prescribed or required for medical reasons: Yes Substance Use Type: Marijuana Substance Use Frequency: Occasionally Last Used Substance Other:: yesterday Currently Displaying Signs/Symptoms of Drug Intoxication Withdrawal: No Any prior treatment program specific to substance use: No Have you been hit, kicked, punched, or otherwise hurt by someone within the past year? If so, by whom?: No Do you feel safe in your current relationship?: Yes Is there a partner from a previous relationship who is making you feel unsafe now?: No Are you made to feel afraid or neglected: No [facility] Practices: orthodoxy Advance Directives: No Advance Directives Information Provided: No Do you have thoughts of harming others: None Do you have a plan to hurt others: No Plan Recently lost weight without trying: Unsure Nutrition Risks: No Nutritional Risk service: No Current occupational status: disabled Cognitive needs: No Hearing needs: No Vision needs: No <Vera Tao PA-C - Last Filed: 05/22/22 14:11> Meds Allergies/Adverse reactions: Allergies Allergy/AdvReac Type Severity Reaction Status Date / Time cetirizine [From [facility]] AdvReac Mild Nightmare Verified 01/25/22 09:23 lactose AdvReac Unknown Diarrhea Verified 01/25/22 09:23 <Vera Tao PA-C - Last Filed: 05/22/22 14:11> Active Medications: Current Medications Enoxaparin Sodium (Enoxaparin Sodium 40 Mg/0.4 Ml Syringe) 40 mg SUBCUT Q24H [facility] Last Admin: 05/21/22 21:25 Dose: 40 mg Hydromorphone HCl (Hydromorphone Hcl 2 Mg/Ml Vial) 1.5 mg IVPUSH Q3H PRN; Protocol PRN Reason: Pain, Severe (Pain Scale 7-10) Last Admin: 05/22/22 11:46 Dose: 1.5 mg Sodium Chloride (Ns) 1,000 mls @ 200 mls/hr IVCONT .Q5H [facility] Last Admin: 05/22/22 11:25 Dose: 200 mls/hr Ondansetron HCl (Ondansetron Hcl 4 Mg/2 Ml Vial) 4 mg IVPUSH Q8H PRN PRN Reason: Nausea and Vomiting Last Admin: 05/22/22 07:36 Dose: 4 mg Pantoprazole Sodium (Pantoprazole Sodium 40 Mg/10 Ml Vial) 40 mg IVPUSH BID@0644,9104 [facility] Pharmacy Consult (Consult Rx Perform Med Rec) 1 each MISCELLANE ONCE PRN PRN Reason: Consult order <DORA Marrero Last Filed: 05/22/22 14:11> Home medications: Home Medications Medication Instructions Recorded Confirmed Last Taken Type omeprazole 40 mg capsule,delayed 40 mg PO DAILY PRN Acid Reflux 10/24/21 05/21/22 12/03/21 History release ibuprofen 200 mg tablet (Advil) 400 mg PO Q8H PRN Pain 05/21/22 05/21/22 Unknown History <Vera Tao PA-C Last Filed: 05/22/22 14:11> Physical Exam Vital Signs: Vital Signs: Last Vital Signs Temp 98.4 F 05/22/22 11:28 Pulse 93 05/22/22 11:28 Resp 18 05/22/22 11:28 BP 129/76 05/22/22 11:28 Pulse Ox 94 05/22/22 11:28 O2 Del Method 05/22/22 11:28 BMI result Body Mass Index 31.9 <Vera Tao PA-C Last Filed: 05/22/22 14:11> Const: General: comfortable, no acute distress and alert <Vera Tao PA-C Last Filed: 05/22/22 14:11> Orientation/consciousness: patient oriented x3 <Vera Tao PA-C Last Filed: 05/22/22 14:11> Resp: Effort & Inspection: normal respiratory effort <Vera Tao PA-C Last Filed: 05/22/22 14:11> Cardio: Rate: regular rate <Vera Tao PA-C Last Filed: 05/22/22 14:11> GI: Other: right sided ileostomy <Vera Tao PA-C Last Filed: 05/22/22 14:11> Inspection: No distended and Yes scar (multiple well healed scars) <DORA Marrero Last Filed: 05/22/22 14:11> Palpation (GI): Soft to palpation, Tenderness to palpation present (GI) (diffusely, voluntary guarding), no guarding and not rigid <Vera Tao PA-C - Last Filed: 05/22/22 14:11> Percussion: Yes normal to percussion <DORA Marrero Last Filed: 05/22/22 14:11> Skin: General skin exam: no rashes or lesions noted <DORA Marrero Last Filed: 05/22/22 14:11> Neuro: General: patient oriented x3 <DORA Marrero Last Filed: 05/22/22 14:11> Extrem: General: Yes no clubbing, cyanosis or edema <DORA Marrero Last Filed: 05/22/22 14:11> Results Labs Result diagrams: : 05/24/22 04:02 05/24/22 04:02 <DORA Marrero Last Filed: 05/22/22 14:11> Labs: Abnormal lab results 05/22/22 05/22/22 Range/Units 05:51 05:51 WBC 14.2 H (4.8-10.8) X10*3/uL MCV 75.9 L (80.0-98.0) fL MCH 26.0 L (27.0-33.0) pg Sodium 129 L (135-145) mmol/L Carbon Dioxide 21 L (22-29) mmol/L BUN 6 L (9-16) mg/dL Random Glucose 118 H (60-115) mg/dL Short CBC 05/22/22 Range/Units 05:51 WBC 14.2 H (4.8-10.8) X10*3/uL Hgb 14.4 (14.0-18.0) g/dl Hct 42.0 (42.0-52.0) % Plt Count 273 (160-400) X10*3/uL BMP 05/22/22 05:51 Sodium 129 L Potassium 4.0 Chloride 98 Carbon Dioxide 21 L BUN 6 L Creatinine 0.80 Calcium 8.6 D All other labs normal. <DORA Marrero Last Filed: 05/22/22 14:11> Assessment and Plan (1) Acute pancreatitis: Status: Acute <Vera Tao PA-C - Last Filed: 05/22/22 14:11> He has had recurrent pancreatitis past 6 years or so from hypertriglyceridemia He was admitted yesterday because of abdominal pain I have reviewed his CAT scans with Dr. Lomax -there is worsening inflammatory changes around the pancreas with more pancreatic fluid tracking down to the mesentery on this CT scan compared to yesterday He is tender to touch No necrotizing process on the pancreas His triglyceride level is 4000 He is going to be transferred to the ICU for insulin drip to control his triglyceride level The rest of his management would involve bowel rest and pain management His amylase lipase and LFT should be followed closely I will follow along while he is in the hospital I explained the plan to the patient and his mother at bedside Patient was seen and examined independently <Ignacio Harris MD - Last Filed: 05/24/22 08:22> (2) Hypertriglyceridemia: Status: Acute <Vera Tao PA-C - Last Filed: 05/22/22 14:11> 42 year old male admitted for acute pancreatitis secondary to hypertriglyceridemia. His pancreatitis appears to be worsening by symptoms, labs and CT scan. He is diffusely tender however without peritoneal signs or abd distention. Would recommend to continue supportive measures of NPO status, IVF, pain control and treatment of hypertriglyceridemia. He is being transferred to the ICU for insulin drip. Abdominal pressure to be followed there given the amount of peripancreatitic inflammation. No current evidence of any organ dysfunction. Will continue to follow closely. Case discussed with Dr. Harris. <Vera Tao PA-C - Last Filed: 05/22/22 14:11> Procedures Date of Service Date of Service: 05/22/22 <Vera Tao PA-C - Last Filed: 05/22/22 14:11>
[2022-05-22 14:13] LABS: Triglycerides 2159 mg/dL
[2022-05-22 14:58] LABS: Glucose, Whole Blood 109 mg/dL (60-115)
[2022-05-22] MEDS: Midazolam HCl/PF 2 MG/2 ML VIAL 3 MG IVPUSH (15:27)
[2022-05-22] MEDS: KCl 20 mEq in 5% Dex/0.9% Sod 20 MEQ/1,000 ML IV.SOLN 150 MEQ IVCONT ×2 (15:30→22:02)
[2022-05-22 16:05] LABS: Appearance Urine Clear; Color Urine Orange; Glucose Urine UA Negative (Negative); Leukocyte Esterase Urine Trace (Negative); Nitrite Urine Positive (Negative); PH 5.5 (5.0-9.0); Specific Gravity - Urine >= 1.030 (1.005-1.025); UMIC TRIGGER UA YES; Urine Blood Negative (Negative); Urine Ketones Negative (Negative); Urine Protein 30 (1+) mg/dL (Neg-Trace)
[2022-05-22 16:15] LABS: Bacteria Urine None Seen (None Seen); WBC Urine 0-5 /HPF (0-5)
[2022-05-22] MEDS: Insulin Regular/NS 100 UNIT/100 ML PLAST..BAG IVCONT (16:15)
[2022-05-22 16:17] LABS: Glucose, Whole Blood 148 mg/dL (60-115)
[2022-05-22] MEDS: Pantoprazole Sodium 40 MG/10 ML VIAL IVPUSH (16:31)
--- NOTE | 2022-05-22 16:34 | W.PM.CCHP ---
Procedures Date of Service Date of Service: 05/22/22 Central Line Placement Right IJ: Central Line Comments: After sterile preparation and draping utilizing ultrasound guidance I placed a triple-lumen central venous pressure catheter at a 20 cm length without complication with tip confirmed by chest x-ray to be at the mouth of the inferior vena cava Procedure went easily Consent for Procedure: Elective - informed consent obtained Time out performed: Yes Sterile Technique Used: Yes Patient placed on monitor/pulse ox: Yes MD prep: mask, gown and gloves Central line prep: Chlorhexidine scrub Local anesthesia used: lidocaine 1% Ultrasound used for placement: Yes Central line lumen inserted: triple Post procedure: sutured in place, good blood return, all ports aspirated, flushed, capped and sterile dressing applied Post procedure x-ray: tip of catheter in good position and no pneumothorax seen Patient tolerated procedure: well and no complications Complications: none
[2022-05-22 17:00] LABS: INTERNATIONAL NORM RATIO 1.1 (0.9-1.1); Prothrombin Time 13.2 SEC (10.0-13.1)
[2022-05-22 17:02] LABS: Glucose, Whole Blood 129 mg/dL (60-115)
[2022-05-22 17:03] LABS: Partial Thromboplastin Time 26.7 SEC (26.0-36.4)
--- NOTE | 2022-05-22 17:07 | PM.EVENT ---
Event Note Date of Service: 05/22/22 Event Note: Patient transferred to the ICU for insulin drip in view of severe hypertriglyceridemia central line placed for IV access complaints of pain abdomen not distended although with diffuse tenderness stable vital signs plan is to bring down triglyceride level with insulin bowel rest pain management stable currently
[2022-05-22 17:18] LABS: Lipase 279 U/L (8-78); Magnesium 1.6 mg/dL (1.6-2.6); Phosphorus 1.8 mg/dL (2.7-4.5); Potassium 3.6 mmol/L (3.3-5.1)
[2022-05-22 18:09] LABS: Glucose, Whole Blood 135 mg/dL (60-115)
--- NOTE | 2022-05-22 18:35 | PC.NURSE ---
THIS RN ASSUMED CARE OF PATIENT AT 14:15. PT WAS TRANSFERRED FROM MEDICAL-SURGICAL FLOOR TO ICU FOR PANCREATITIS AND NEED FOR NON-DKA INSULIN GTT. 14:50 PT POC GLUCOSE CHECK 109. PT HAS A PATENT IV 18 LEFT FOREARM UNABLE TO OBTAIN ADDITIONAL PERIPHERAL IV ACCESS, MD NOTIFIED 15:10 SOTELO CATHETER PLACED PER MD FOR INTRA-ABDOMINAL PRESSURE READING 15:25 MD PLACED TRIPLE LUMEN CATHETER, TIME OUT PERFORMED BEFORE PROCEDURE WITH 2 RNS PRESENT. INSULIN GTT STARTED @2 UNITS/HR. Q1H POC GLUCOSE CHECKS. PER MD CONTINUE GTT @2 UNIT/HR AND LABS ORDERED TO RECHECK TRIGLYCERIDE LEVELS. PT GIVEN PAIN MANAGEMENT WITH IVP DILAUDID, PT REPORTS POSITIVE EFFECT CVP 6 INTRA-ABDOMINAL PRESSURE 7 URINALYSIS COLLECTED
[2022-05-22 19:06] LABS: Glucose, Whole Blood 135 mg/dL (60-115)
[2022-05-22 19:56] LABS: Glucose, Whole Blood 131 mg/dL (60-115)
[2022-05-22 20:55] LABS: Glucose, Whole Blood 117 mg/dL (60-115)
[2022-05-22] MEDS: Enoxaparin Sodium 40 MG/0.4 ML SYRINGE SUBCUT (20:55)
[2022-05-22 21:54] LABS: Lactic Acid 1.9 mmol/L (0.5-2.0)
[2022-05-22 21:56] LABS: Glucose, Whole Blood 139 mg/dL (60-115)
[2022-05-22 22:59] LABS: Glucose, Whole Blood 127 mg/dL (60-115)
[2022-05-23] VITALS (30 sets, daily range): BP systolic 104–149; BP diastolic 65–84; PULSE 99–122; RESP 16–119; TEMP 38–38.7; O2SAT 90–96; BMI 32.5
[2022-05-23 00:07] LABS: Glucose, Whole Blood 131 mg/dL (60-115)
[2022-05-23] MEDS: HYDROmorphone HCl 2 MG/ML VIAL 1.5 MG IVPUSH ×3 (00:18→08:22)
[2022-05-23 01:08] LABS: Glucose, Whole Blood 143 mg/dL (60-115)
[2022-05-23 02:09] LABS: Glucose, Whole Blood 140 mg/dL (60-115)
[2022-05-23 03:06] LABS: Glucose, Whole Blood 124 mg/dL (60-115)
[2022-05-23 04:11] LABS: Glucose, Whole Blood 120 mg/dL (60-115)
[2022-05-23] MEDS: KCl 20 mEq in 5% Dex/0.9% Sod 20 MEQ/1,000 ML IV.SOLN 150 MEQ IVCONT ×2 (04:42→11:14)
[2022-05-23 05:09] LABS: Glucose, Whole Blood 123 mg/dL (60-115)
[2022-05-23] MEDS: Pantoprazole Sodium 40 MG/10 ML VIAL IVPUSH ×2 (05:10→15:21)
[2022-05-23 05:16] LABS: VBG Base Excess -1.2 mmol/L; VBG HCO3 21 mmol/L (22-26); VBG pCO2 31 mmHg; VBG pH 7.44 (7.32-7.43); VBG pO2 47 mmHg
[2022-05-23 05:17] LABS: Venous Blood Gas Refer to POC result
[2022-05-23 05:22] LABS: Triglycerides 977 mg/dL
[2022-05-23 05:29] LABS: Alanine Aminotransferase 26 U/L (0-40); Albumin Level 3.3 g/dL (3.5-5.0); Alkaline Phosphatase 63 U/L (39-117); Anion Gap 11 (12-20); Aspartate Amino Transferase 17 U/L (5-37); Bilirubin Total 2.5 mg/dL (0.0-1.0); Blood Urea Nitrogen 8 mg/dL (9-16); Calcium 8.1 mg/dL (8.4-10.2); Carbon Dioxide 22 mmol/L (22-29); Chloride 104 mmol/L (96-108); Estimated Glomerular Filt Rate > 60; Glucose Random 126 mg/dL (60-115); Lipase 221 U/L (8-78); Magnesium 1.6 mg/dL (1.6-2.6); Potassium 3.8 mmol/L (3.3-5.1); Sodium 133 mmol/L (135-145)
[2022-05-23 06:13] LABS: Glucose, Whole Blood 132 mg/dL (60-115)
[2022-05-23] MEDS: Magnesium Sulfate/D5W 1 GM/100 ML PIGGYBACK IV (06:42)
[2022-05-23] MEDS: Potassium Phosphate/NS 15 MMOL/250 ML PLAST..BAG 62.5 MMOL IV ×2 (06:46→11:16)
[2022-05-23 06:57] LABS: MANUAL DIFF FLAG NO
[2022-05-23 07:00] LABS: Basophils Percent Auto 0.3 % (0-2); Eosinophils Percent Auto 0.3 % (0-4); Hematocrit 38.2 % (42.0-52.0); Hemoglobin 12.9 g/dl (14.0-18.0); Imm Gran Abs Auto 0.07 X10*3/uL (0.00-0.03); Imm Gran Pct Auto 0.6 % (0.0-0.4); Lymphocytes Absolute Auto 1.4 X10*3/uL (1.2-4.9); Lymphocytes Percent Auto 11.4 % (20-40); Mean Corpuscular HGB Conc 33.8 g/dl (31.0-36.0); Mean Platelet Volume 9.7 fL (9.4-12.4); Monocytes Absolute Auto 1.2 X10*3/uL (0.1-1.2); Monocytes Percent Auto 10.1 % (2-11); Neutrophils Absolute Auto 9.2 x10*3/uL (2.0-8.3); Neutrophils Percent Auto 77.3 % (45-73); Platelet Count 243 X10*3/uL (160-400); Red Blood Count 4.96 X10*6/uL (4.60-5.80); Red Cell Distribution Width 13.7 % (11.0-16.0); White Blood Count 11.9 X10*3/uL (4.8-10.8)
[2022-05-23 08:00] LABS: Glucose, Whole Blood 123 mg/dL (60-115)
--- NOTE | 2022-05-23 08:33 | PM.PNGS ---
Subjective Subjective Date of Service: 05/23/22 <Vera Tao PA-C - Last Filed: 05/23/22 08:40> 05/24/22 <Ignacio Harris MD - Last Filed: 05/24/22 08:18> Interval history: Feels a little better then yesterday, pain is about the same. Relieved by analgesics. Ostomy output has not changed. <Vera Tao PA-C - Last Filed: 05/23/22 08:40> Physical Exam Vital Signs: Vital Signs: Last Vital Signs Temp 100.6 F H 05/23/22 07:00 Pulse 103 H 05/23/22 07:00 Resp 26 H 05/23/22 08:22 BP 112/72 05/23/22 07:00 Pulse Ox 91 L 05/23/22 07:00 O2 Del Method 05/23/22 07:00 BMI result Body Mass Index 32.5 <Vera Tao PA-C - Last Filed: 05/23/22 08:40> Const: General: comfortable, no acute distress and alert <Vera Tao PA-C - Last Filed: 05/23/22 08:40> Orientation/consciousness: patient oriented x3 <Vera Tao PA-C - Last Filed: 05/23/22 08:40> Resp: Effort & Inspection: normal respiratory effort <Vera Tao PA-C - Last Filed: 05/23/22 08:40> Cardio: Rate: tachycardic <Vera Tao PA-C - Last Filed: 05/23/22 08:40> GI: Other: right sided ostomy with liquid stool in appliance <Vera Tao PA-C - Last Filed: 05/23/22 08:40> Inspection: No distended <DORA Marrero Last Filed: 05/23/22 08:40> Palpation (GI): Soft to palpation, Tenderness to palpation present (GI) (diffuse, more significant at epigastric/LUQ, voluntary guarding) with rebound tenderness and not rigid <DORA Marrero Last Filed: 05/23/22 08:40> Percussion: Yes normal to percussion <Vera Tao PA-C - Last Filed: 05/23/22 08:40> Skin: General skin exam: no rashes or lesions noted <DORA Marrero Last Filed: 05/23/22 08:40> Neuro: General: patient oriented x3 <DORA Marrero Last Filed: 05/23/22 08:40> Extrem: General: Yes no clubbing, cyanosis or edema <Vera Tao PA-C - Last Filed: 05/23/22 08:40> Objective Data Active Medications Dextrose (Dextrose 50 % 25 Gm/50 Ml Syringe) 25 gm IVPUSH Q30M PRN PRN Reason: Nursing Actions in Insulin Infusion Protocol Enoxaparin Sodium (Enoxaparin Sodium 40 Mg/0.4 Ml Syringe) 40 mg SUBCUT Q24H [facility] Last Admin: 05/22/22 20:55 Dose: 40 mg Documented By: SEBASTIÁN Hydromorphone HCl (Hydromorphone Hcl 2 Mg/Ml Vial) 1.5 mg IVPUSH Q3H PRN; Protocol PRN Reason: Pain, Severe (Pain Scale 7-10) Last Admin: 05/23/22 08:22 Dose: 1.5 mg Documented By: PERFECTO Potassium Chloride/Dextrose/Sod Cl (Kcl 20 Meq In 5% Dex/0.9% Sod) 20 meq in 1,000 mls @ 150 mls/hr IVCONT .Q6H40M [facility] Last Admin: 05/23/22 04:42 Dose: 150 mls/hr Documented By: JENS Insulin Human Regular (Myxredlin) 100 unit in 100 mls @ 2 mls/hr IVCONT .Q24H [facility] Last Admin: 05/22/22 16:15 Dose: 2 units/hr, 2 mls/hr Documented By: PERFECTO Co-signed By: MARGARET Potassium Phosphate (Kphos) 15 mmol in 250 mls @ 62.5 mls/hr IV Q4H [facility] Stop: 05/23/22 14:14 Last Admin: 05/23/22 06:46 Dose: 62.5 mls/hr Documented By: SEBASTIÁN Ondansetron HCl (Ondansetron Hcl 4 Mg/2 Ml Vial) 4 mg IVPUSH Q8H PRN PRN Reason: Nausea and Vomiting Last Admin: 05/22/22 17:31 Dose: 4 mg Documented By: PERFECTO Pantoprazole Sodium (Pantoprazole Sodium 40 Mg/10 Ml Vial) 40 mg IVPUSH BID@0630,1630 DARRYL Last Admin: 05/23/22 05:10 Dose: 40 mg Documented By: SEBASTIÁN Pharmacy Consult (Consult Rx Perform Med Rec) 1 each MISCELLANE ONCE PRN PRN Reason: Consult order <Vera Tao PA-C - Last Filed: 05/23/22 08:40> Labs CBC & Chem 7: : 05/24/22 04:02 05/24/22 04:02 <Vera Tao PA-C - Last Filed: 05/23/22 08:40> Labs: Laboratory Results - last 24 hr 05/22/22 05/22/22 05/22/22 05:51 14:54 15:41 MCV MCH MCHC RDW Plt Count MPV Immature Gran % (Auto) Neut % (Auto) Lymph % (Auto) [place] % (Auto) Eos % (Auto) Baso % (Auto) Lymph # (Auto) [place] # (Auto) Eos # (Auto) Baso # (Auto) Abs Immat Gran (auto) Absolute Neuts (auto) Absolute Nucleated RBC Nucleated RBC % (auto) PT INR APTT VBG pH VBG pCO2 VBG pO2 VBG HCO3 VBG O2 Saturation VBG Base Excess Anion Gap Estim Creat Clear Calc Estimated GFR POC Glucose 109 Random Glucose Lactic Acid Calcium Phosphorus Magnesium Total Bilirubin AST ALT Alkaline Phosphatase Total Protein Albumin Triglycerides 2159 Lipase Urine Color [place] A Urine Appearance Clear Urine pH 5.5 Ur Specific [place] >= 1.030 H Urine Protein 30 (1+) H Urine Glucose (UA) Negative Urine Ketones Negative Urine Blood Negative Urine Nitrite Positive H Ur Leukocyte Esterase Trace H Urine RBC 3-5 H Urine WBC 0-5 Ur Squamous Epith Cells 3-5 Urine Bacteria None Seen Hyaline Casts 3-5 05/22/22 05/22/22 05/22/22 16:13 16:33 16:33 MCV MCH MCHC RDW Plt Count MPV Immature Gran % (Auto) Neut % (Auto) Lymph % (Auto) [place] % (Auto) Eos % (Auto) Baso % (Auto) Lymph # (Auto) [place] # (Auto) Eos # (Auto) Baso # (Auto) Abs Immat Gran (auto) Absolute Neuts (auto) Absolute Nucleated RBC Nucleated RBC % (auto) PT 13.2 H INR 1.1 APTT 26.7 VBG pH VBG pCO2 VBG pO2 VBG HCO3 VBG O2 Saturation VBG Base Excess Anion Gap Estim Creat Clear Calc Estimated GFR POC Glucose 148 H Random Glucose Lactic Acid Calcium Phosphorus 1.8 L Magnesium 1.6 Total Bilirubin AST ALT Alkaline Phosphatase Total Protein Albumin Triglycerides Lipase 279 H Urine Color Urine Appearance Urine pH Ur Specific [place] Urine Protein Urine Glucose (UA) Urine Ketones Urine Blood Urine Nitrite Ur Leukocyte Esterase Urine RBC Urine WBC Ur Squamous Epith Cells Urine Bacteria Hyaline Casts 05/22/22 05/22/22 05/22/22 16:57 18:06 19:02 MCV MCH MCHC RDW Plt Count MPV Immature Gran % (Auto) Neut % (Auto) Lymph % (Auto) [place] % (Auto) Eos % (Auto) Baso % (Auto) Lymph # (Auto) [place] # (Auto) Eos # (Auto) Baso # (Auto) Abs Immat Gran (auto) Absolute Neuts (auto) Absolute Nucleated RBC Nucleated RBC % (auto) PT INR APTT VBG pH VBG pCO2 VBG pO2 VBG HCO3 VBG O2 Saturation VBG Base Excess Anion Gap Estim Creat Clear Calc Estimated GFR POC Glucose 129 H 135 H 135 H Random Glucose Lactic Acid Calcium Phosphorus Magnesium Total Bilirubin AST ALT Alkaline Phosphatase Total Protein Albumin Triglycerides Lipase Urine Color Urine Appearance Urine pH Ur Specific [place] Urine Protein Urine Glucose (UA) Urine Ketones Urine Blood Urine Nitrite Ur Leukocyte Esterase Urine RBC Urine WBC Ur Squamous Epith Cells Urine Bacteria Hyaline Casts 05/22/22 05/22/22 05/22/22 19:52 20:51 21:12 MCV MCH MCHC RDW Plt Count MPV Immature Gran % (Auto) Neut % (Auto) Lymph % (Auto) [place] % (Auto) Eos % (Auto) Baso % (Auto) Lymph # (Auto) [place] # (Auto) Eos # (Auto) Baso # (Auto) Abs Immat Gran (auto) Absolute Neuts (auto) Absolute Nucleated RBC Nucleated RBC % (auto) PT INR APTT VBG pH VBG pCO2 VBG pO2 VBG HCO3 VBG O2 Saturation VBG Base Excess Anion Gap Estim Creat Clear Calc Estimated GFR POC Glucose 131 H 117 H Random Glucose Lactic Acid 1.9 Calcium Phosphorus Magnesium Total Bilirubin AST ALT Alkaline Phosphatase Total Protein Albumin Triglycerides Lipase Urine Color Urine Appearance Urine pH Ur Specific [place] Urine Protein Urine Glucose (UA) Urine Ketones Urine Blood Urine Nitrite Ur Leukocyte Esterase Urine RBC Urine WBC Ur Squamous Epith Cells Urine Bacteria Hyaline Casts 05/22/22 05/22/22 05/23/22 21:51 22:54 00:01 MCV MCH MCHC RDW Plt Count MPV Immature Gran % (Auto) Neut % (Auto) Lymph % (Auto) [place] % (Auto) Eos % (Auto) Baso % (Auto) Lymph # (Auto) [place] # (Auto) Eos # (Auto) Baso # (Auto) Abs Immat Gran (auto) Absolute Neuts (auto) Absolute Nucleated RBC Nucleated RBC % (auto) PT INR APTT VBG pH VBG pCO2 VBG pO2 VBG HCO3 VBG O2 Saturation VBG Base Excess Anion Gap Estim Creat Clear Calc Estimated GFR POC Glucose 139 H 127 H 131 H Random Glucose Lactic Acid Calcium Phosphorus Magnesium Total Bilirubin AST ALT Alkaline Phosphatase Total Protein Albumin Triglycerides Lipase Urine Color Urine Appearance Urine pH Ur Specific [place] Urine Protein Urine Glucose (UA) Urine Ketones Urine Blood Urine Nitrite Ur Leukocyte Esterase Urine RBC Urine WBC Ur Squamous Epith Cells Urine Bacteria Hyaline Casts 05/23/22 05/23/22 05/23/22 01:04 02:04 03:01 MCV MCH MCHC RDW Plt Count MPV Immature Gran % (Auto) Neut % (Auto) Lymph % (Auto) [place] % (Auto) Eos % (Auto) Baso % (Auto) Lymph # (Auto) [place] # (Auto) Eos # (Auto) Baso # (Auto) Abs Immat Gran (auto) Absolute Neuts (auto) Absolute Nucleated RBC Nucleated RBC % (auto) PT INR APTT VBG pH VBG pCO2 VBG pO2 VBG HCO3 VBG O2 Saturation VBG Base Excess Anion Gap Estim Creat Clear Calc Estimated GFR POC Glucose 143 H 140 H 124 H Random Glucose Lactic Acid Calcium Phosphorus Magnesium Total Bilirubin AST ALT Alkaline Phosphatase Total Protein Albumin Triglycerides Lipase Urine Color Urine Appearance Urine pH Ur Specific [place] Urine Protein Urine Glucose (UA) Urine Ketones Urine Blood Urine Nitrite Ur Leukocyte Esterase Urine RBC Urine WBC Ur Squamous Epith Cells Urine Bacteria Hyaline Casts 05/23/22 05/23/22 05/23/22 04:06 05:00 05:00 MCV MCH MCHC RDW Plt Count MPV Immature Gran % (Auto) Neut % (Auto) Lymph % (Auto) [place] % (Auto) Eos % (Auto) Baso % (Auto) Lymph # (Auto) [place] # (Auto) Eos # (Auto) Baso # (Auto) Abs Immat Gran (auto) Absolute Neuts (auto) Absolute Nucleated RBC Nucleated RBC % (auto) PT INR APTT VBG pH VBG pCO2 VBG pO2 VBG HCO3 VBG O2 Saturation VBG Base Excess Anion Gap 11 L Estim Creat Clear Calc 138.0 Estimated GFR > 60 POC Glucose 120 H Random Glucose 126 H Lactic Acid Calcium 8.1 L Phosphorus 1.0 L* Magnesium 1.6 Total Bilirubin 2.5 H AST 17 ALT 26 Alkaline Phosphatase 63 Total Protein 6.0 L Albumin 3.3 L Triglycerides 977 Lipase 221 H Urine Color Urine Appearance Urine pH Ur Specific [place] Urine Protein Urine Glucose (UA) Urine Ketones Urine Blood Urine Nitrite Ur Leukocyte Esterase Urine RBC Urine WBC Ur Squamous Epith Cells Urine Bacteria Hyaline Casts 05/23/22 05/23/22 05/23/22 05:05 05:10 06:08 MCV MCH MCHC RDW Plt Count MPV Immature Gran % (Auto) Neut % (Auto) Lymph % (Auto) [place] % (Auto) Eos % (Auto) Baso % (Auto) Lymph # (Auto) [place] # (Auto) Eos # (Auto) Baso # (Auto) Abs Immat Gran (auto) Absolute Neuts (auto) Absolute Nucleated RBC Nucleated RBC % (auto) PT INR APTT VBG pH 7.44 H VBG pCO2 31 VBG pO2 47 VBG HCO3 21 L VBG O2 Saturation 82.0 VBG Base Excess -1.2 Anion Gap Estim Creat Clear Calc Estimated GFR POC Glucose 123 H 132 H Random Glucose Lactic Acid Calcium Phosphorus Magnesium Total Bilirubin AST ALT Alkaline Phosphatase Total Protein Albumin Triglycerides Lipase Urine Color Urine Appearance Urine pH Ur Specific [place] Urine Protein Urine Glucose (UA) Urine Ketones Urine Blood Urine Nitrite Ur Leukocyte Esterase Urine RBC Urine WBC Ur Squamous Epith Cells Urine Bacteria Hyaline Casts 05/23/22 05/23/22 06:50 07:57 MCV 77.0 L MCH 26.0 L MCHC 33.8 RDW 13.7 Plt Count 243 MPV 9.7 Immature Gran % (Auto) 0.6 H Neut % (Auto) 77.3 H Lymph % (Auto) 11.4 L [place] % (Auto) 10.1 Eos % (Auto) 0.3 Baso % (Auto) 0.3 Lymph # (Auto) 1.4 [place] # (Auto) 1.2 Eos # (Auto) 0.0 Baso # (Auto) 0.0 Abs Immat Gran (auto) 0.07 H Absolute Neuts (auto) 9.2 H Absolute Nucleated RBC 0.000 Nucleated RBC % (auto) 0.0 PT INR APTT VBG pH VBG pCO2 VBG pO2 VBG HCO3 VBG O2 Saturation VBG Base Excess Anion Gap Estim Creat Clear Calc Estimated GFR POC Glucose 123 H Random Glucose Lactic Acid Calcium Phosphorus Magnesium Total Bilirubin AST ALT Alkaline Phosphatase Total Protein Albumin Triglycerides Lipase Urine Color Urine Appearance Urine pH Ur Specific [place] Urine Protein Urine Glucose (UA) Urine Ketones Urine Blood Urine Nitrite Ur Leukocyte Esterase Urine RBC Urine WBC Ur Squamous Epith Cells Urine Bacteria Hyaline Casts <Vera Tao PA-C - Last Filed: 05/23/22 08:40> Procedures Date of Service Date of Service: 05/23/22 <Vera Tao PA-C - Last Filed: 05/23/22 08:40> Progress Note: A&P Assessment and plan (1) Acute pancreatitis: Status: Acute <Vera Tao PA-C - Last Filed: 05/23/22 08:40> Assessment and Plan: still has pain but he says he feels much better compared to yesterday stable overnight good urine output abdomen nondistended but tender diffusely, mostly on the upper abdomen and on the left side with voluntary guarding, as yesterday triglyceride levels now down to 900 from 5000 yesterday on insulin drip pain management okay to have sips of clear liquids seen and examined independently <Ignacio Harris MD - Last Filed: 05/24/22 08:18> Assessment and Plan: 42 year old male admitted for acute pancreatitis secondary to hypertriglyceridemia. He remains in ICU for insulin drip to decrease hypertriglyceridemia, improved on labs this AM but remains significantly elevated at 977. His abd exam remains unchanged with diffuse tenderness, nondistended. Continue supportive measures and bowel rest. Continue to trend LFTs, bilirubin up this morning. <Vera Tao PA-C - Last Filed: 05/23/22 08:40> Time Spent With Patient Time: Total time spent is greater than 50% in coordination of care (as documented) at patient's floor/unit and/or counseling patient: <Vera Tao PA-C - Last Filed: 05/23/22 08:40> Quality Stroke Does the patient have a stroke diagnosis?: No <Vera Tao PA-C - Last Filed: 05/23/22 08:40> VTE Prior VTE?: No <Vera Tao PA-C - Last Filed: 05/23/22 08:40> VTE Risk Level:: Medical - moderate - high <Vera Tao PA-C - Last Filed: 05/23/22 08:40> VTE Device Contraindication: Treatment Not Indicated <Vera Tao PA-C - Last Filed: 05/23/22 08:40> VTE Drug Contraindication: N/A - Med Ordered <Vera Tao PA-C - Last Filed: 05/23/22 08:40>
[2022-05-23 10:03] LABS: Glucose, Whole Blood 132 mg/dL (60-115)
[2022-05-23] MEDS: HYDROmorphone HCl 2 MG/ML VIAL 1 MG IVPUSH ×4 (12:13→21:01)
--- NOTE | 2022-05-23 12:15 | MHC.CM.PN ---
Pt continues care in ICU for triglyceride mediated pancreatitis. Pt making improvement and may be able to transfer to [place]. Pt is independent and will be able to return to home without services
[2022-05-23 12:24] LABS: Glucose, Whole Blood 111 mg/dL (60-115)
[2022-05-23 14:14] LABS: Glucose, Whole Blood 99 mg/dL (60-115)
[2022-05-23] MEDS: Insulin Regular/NS 100 UNIT/100 ML PLAST..BAG IVCONT (15:05)
[2022-05-23 15:48] LABS: Alanine Aminotransferase 27 U/L (0-40); Albumin Level 3.2 g/dL (3.5-5.0); Alkaline Phosphatase 64 U/L (39-117); Anion Gap 11 (12-20); Aspartate Amino Transferase 17 U/L (5-37); Bilirubin Total 2.3 mg/dL (0.0-1.0); Blood Urea Nitrogen 7 mg/dL (9-16); Calcium 8.2 mg/dL (8.4-10.2); Carbon Dioxide 23 mmol/L (22-29); Chloride 105 mmol/L (96-108); Creatinine Clr Calc Pharmacy 139.3; Estimated Glomerular Filt Rate > 60; Glucose Random 111 mg/dL (60-115); Lipase 193 U/L (8-78); Magnesium 1.8 mg/dL (1.6-2.6); Phosphorus 1.4 mg/dL (2.7-4.5); Potassium 3.9 mmol/L (3.3-5.1); Sodium 135 mmol/L (135-145); Total Protein 5.8 g/dL (6.5-8.0); Triglycerides 796 mg/dL
[2022-05-23 16:00] LABS: Glucose, Whole Blood 103 mg/dL (60-115)
--- NOTE | 2022-05-23 16:19 | P.PNCC_ITS ---
Subjective Subjective Date of Service: 05/23/22 Interval History: 42-year-old male with moderate obesity underlying ulcerative colitis status post colectomy and ileostomy and has been asymptomatic since that time so not on any immunosuppressants presents with marked hypertriglyceridemia at 4000 with acute pancreatitis clinically proven by CT scan and lipase and is down for an insulin drip and for monitoring of abdominal pressure via his Jung catheter and placement of central venous pressure line because there is a lack of access and we need to get measurements of the mean right atrial filling pressure as we hydrate Low-grade temperature but he does not appear to be clinically infected I think he is gotten SIRS based on the pancreatitis alone and this does not appear to be sepsis Markedly improved triglyceride level to less than a 1000 and gradually improving abdominal discomfort and nausea as well as lipase Critical Care Time (minutes): 45 Physical Exam Vital Signs: Vital Signs: Last Vital Signs Temp 101.5 F H 05/23/22 16:00 Pulse 119 H 05/23/22 16:00 Resp 26 H 05/23/22 16:00 BP 149/84 H 05/23/22 16:00 Pulse Ox 91 L 05/23/22 16:00 O2 Del Method 05/23/22 16:00 BMI result Body Mass Index 32.5 Awake and alert an oriented and nonfocal neurologically Bedside echo with normal LV function and CVP stable at 6 Abdomen slightly less guarded than yesterday but positive bowel sounds Chest because the equally with no respiratory effort no adventitious sounds No peripheral edema no acrocyanosis Objective Data Labs CBC & Chem 7: 05/23/22 06:50 05/23/22 15:03 Labs: Laboratory Results - last 24 hr 05/22/22 05/22/22 05/22/22 16:33 16:33 16:57 WBC RBC Hgb Hct MCV MCH MCHC RDW Plt Count MPV Immature Gran % (Auto) Neut % (Auto) Lymph % (Auto) [place] % (Auto) Eos % (Auto) Baso % (Auto) Lymph # (Auto) [place] # (Auto) Eos # (Auto) Baso # (Auto) Abs Immat Gran (auto) Absolute Neuts (auto) Absolute Nucleated RBC Nucleated RBC % (auto) PT 13.2 H INR 1.1 APTT 26.7 VBG pH VBG pCO2 VBG pO2 VBG HCO3 VBG O2 Saturation VBG Base Excess Sodium Potassium 3.6 Chloride Carbon Dioxide Anion Gap BUN Creatinine Estim Creat Clear Calc Estimated GFR POC Glucose 129 H Random Glucose Lactic Acid Calcium Phosphorus 1.8 L Magnesium 1.6 Total Bilirubin AST ALT Alkaline Phosphatase Total Creatine Kinase Total Protein Albumin Triglycerides Lipase 279 H 05/22/22 05/22/22 05/22/22 18:06 19:02 19:52 WBC RBC Hgb Hct MCV MCH MCHC RDW Plt Count MPV Immature Gran % (Auto) Neut % (Auto) Lymph % (Auto) [place] % (Auto) Eos % (Auto) Baso % (Auto) Lymph # (Auto) [place] # (Auto) Eos # (Auto) Baso # (Auto) Abs Immat Gran (auto) Absolute Neuts (auto) Absolute Nucleated RBC Nucleated RBC % (auto) PT INR APTT VBG pH VBG pCO2 VBG pO2 VBG HCO3 VBG O2 Saturation VBG Base Excess Sodium Potassium Chloride Carbon Dioxide Anion Gap BUN Creatinine Estim Creat Clear Calc Estimated GFR POC Glucose 135 H 135 H 131 H Random Glucose Lactic Acid Calcium Phosphorus Magnesium Total Bilirubin AST ALT Alkaline Phosphatase Total Creatine Kinase Total Protein Albumin Triglycerides Lipase 05/22/22 05/22/22 05/22/22 20:51 21:12 21:51 WBC RBC Hgb Hct MCV MCH MCHC RDW Plt Count MPV Immature Gran % (Auto) Neut % (Auto) Lymph % (Auto) [place] % (Auto) Eos % (Auto) Baso % (Auto) Lymph # (Auto) [place] # (Auto) Eos # (Auto) Baso # (Auto) Abs Immat Gran (auto) Absolute Neuts (auto) Absolute Nucleated RBC Nucleated RBC % (auto) PT INR APTT VBG pH VBG pCO2 VBG pO2 VBG HCO3 VBG O2 Saturation VBG Base Excess Sodium Potassium Chloride Carbon Dioxide Anion Gap BUN Creatinine Estim Creat Clear Calc Estimated GFR POC Glucose 117 H 139 H Random Glucose Lactic Acid 1.9 Calcium Phosphorus Magnesium Total Bilirubin AST ALT Alkaline Phosphatase Total Creatine Kinase Total Protein Albumin Triglycerides Lipase 05/22/22 05/23/22 05/23/22 22:54 00:01 01:04 WBC RBC Hgb Hct MCV MCH MCHC RDW Plt Count MPV Immature Gran % (Auto) Neut % (Auto) Lymph % (Auto) [place] % (Auto) Eos % (Auto) Baso % (Auto) Lymph # (Auto) [place] # (Auto) Eos # (Auto) Baso # (Auto) Abs Immat Gran (auto) Absolute Neuts (auto) Absolute Nucleated RBC Nucleated RBC % (auto) PT INR APTT VBG pH VBG pCO2 VBG pO2 VBG HCO3 VBG O2 Saturation VBG Base Excess Sodium Potassium Chloride Carbon Dioxide Anion Gap BUN Creatinine Estim Creat Clear Calc Estimated GFR POC Glucose 127 H 131 H 143 H Random Glucose Lactic Acid Calcium Phosphorus Magnesium Total Bilirubin AST ALT Alkaline Phosphatase Total Creatine Kinase Total Protein Albumin Triglycerides Lipase 05/23/22 05/23/22 05/23/22 02:04 03:01 04:06 WBC RBC Hgb Hct MCV MCH MCHC RDW Plt Count MPV Immature Gran % (Auto) Neut % (Auto) Lymph % (Auto) [place] % (Auto) Eos % (Auto) Baso % (Auto) Lymph # (Auto) [place] # (Auto) Eos # (Auto) Baso # (Auto) Abs Immat Gran (auto) Absolute Neuts (auto) Absolute Nucleated RBC Nucleated RBC % (auto) PT INR APTT VBG pH VBG pCO2 VBG pO2 VBG HCO3 VBG O2 Saturation VBG Base Excess Sodium Potassium Chloride Carbon Dioxide Anion Gap BUN Creatinine Estim Creat Clear Calc Estimated GFR POC Glucose 140 H 124 H 120 H Random Glucose Lactic Acid Calcium Phosphorus Magnesium Total Bilirubin AST ALT Alkaline Phosphatase Total Creatine Kinase Total Protein Albumin Triglycerides Lipase 05/23/22 05/23/22 05/23/22 05:00 05:00 05:05 WBC RBC Hgb Hct MCV MCH MCHC RDW Plt Count MPV Immature Gran % (Auto) Neut % (Auto) Lymph % (Auto) [place] % (Auto) Eos % (Auto) Baso % (Auto) Lymph # (Auto) [place] # (Auto) Eos # (Auto) Baso # (Auto) Abs Immat Gran (auto) Absolute Neuts (auto) Absolute Nucleated RBC Nucleated RBC % (auto) PT INR APTT VBG pH VBG pCO2 VBG pO2 VBG HCO3 VBG O2 Saturation VBG Base Excess Sodium 133 L Potassium 3.8 Chloride 104 Carbon Dioxide 22 Anion Gap 11 L BUN 8 L Creatinine 0.83 Estim Creat Clear Calc 138.0 Estimated GFR > 60 POC Glucose 123 H Random Glucose 126 H Lactic Acid Calcium 8.1 L Phosphorus 1.0 L* Magnesium 1.6 Total Bilirubin 2.5 H AST 17 ALT 26 Alkaline Phosphatase 63 Total Creatine Kinase Total Protein 6.0 L Albumin 3.3 L Triglycerides 977 Lipase 221 H 05/23/22 05/23/22 05/23/22 05:10 06:08 06:50 WBC 11.9 H RBC 4.96 Hgb 12.9 L Hct 38.2 L MCV 77.0 L MCH 26.0 L MCHC 33.8 RDW 13.7 Plt Count 243 MPV 9.7 Immature Gran % (Auto) 0.6 H Neut % (Auto) 77.3 H Lymph % (Auto) 11.[address] [place] % (Auto) 10.1 Eos % (Auto) 0.3 Baso % (Auto) 0.3 Lymph # (Auto) 1.4 [place] # (Auto) 1.2 Eos # (Auto) 0.0 Baso # (Auto) 0.0 Abs Immat Gran (auto) 0.07 H Absolute Neuts (auto) 9.2 H Absolute Nucleated RBC 0.000 Nucleated RBC % (auto) 0.0 PT INR APTT VBG pH 7.44 H VBG pCO2 31 VBG pO2 47 VBG HCO3 21 L VBG O2 Saturation 82.0 VBG Base Excess -1.2 Sodium Potassium Chloride Carbon Dioxide Anion Gap BUN Creatinine Estim Creat Clear Calc Estimated GFR POC Glucose 132 H Random Glucose Lactic Acid Calcium Phosphorus Magnesium Total Bilirubin AST ALT Alkaline Phosphatase Total Creatine Kinase Total Protein Albumin Triglycerides Lipase 05/23/22 05/23/22 05/23/22 07:57 09:59 12:21 WBC RBC Hgb Hct MCV MCH MCHC RDW Plt Count MPV Immature Gran % (Auto) Neut % (Auto) Lymph % (Auto) [place] % (Auto) Eos % (Auto) Baso % (Auto) Lymph # (Auto) [place] # (Auto) Eos # (Auto) Baso # (Auto) Abs Immat Gran (auto) Absolute Neuts (auto) Absolute Nucleated RBC Nucleated RBC % (auto) PT INR APTT VBG pH VBG pCO2 VBG pO2 VBG HCO3 VBG O2 Saturation VBG Base Excess Sodium Potassium Chloride Carbon Dioxide Anion Gap BUN Creatinine Estim Creat Clear Calc Estimated GFR POC Glucose 123 H 132 H 111 Random Glucose Lactic Acid Calcium Phosphorus Magnesium Total Bilirubin AST ALT Alkaline Phosphatase Total Creatine Kinase Total Protein Albumin Triglycerides Lipase 05/23/22 05/23/22 05/23/22 14:11 15:03 15:56 WBC RBC Hgb Hct MCV MCH MCHC RDW Plt Count MPV Immature Gran % (Auto) Neut % (Auto) Lymph % (Auto) [place] % (Auto) Eos % (Auto) Baso % (Auto) Lymph # (Auto) [place] # (Auto) Eos # (Auto) Baso # (Auto) Abs Immat Gran (auto) Absolute Neuts (auto) Absolute Nucleated RBC Nucleated RBC % (auto) PT INR APTT VBG pH VBG pCO2 VBG pO2 VBG HCO3 VBG O2 Saturation VBG Base Excess Sodium 135 Potassium 3.9 Chloride 105 Carbon Dioxide 23 Anion Gap 11 L BUN 7 L Creatinine 0.83 Estim Creat Clear Calc 139.3 Estimated GFR > 60 POC Glucose 99 103 Random Glucose 111 Lactic Acid Calcium 8.2 L Phosphorus 1.4 L Magnesium 1.8 Total Bilirubin 2.3 H AST 17 ALT 27 Alkaline Phosphatase 64 Total Creatine Kinase 88 Total Protein 5.8 L Albumin 3.2 L Triglycerides 796 Lipase 193 H Progress Note: A&P Assessment and plan (1) Acute pancreatitis: Status: Acute (2) Sinusitis: Status: Acute (3) Inflammatory bowel diseases (IBD): Status: Acute (4) Annual physical exam: Status: Acute (5) Acute pancreatitis: Status: Acute (6) Sleep disorder breathing: Status: Acute (7) Infection of lip: Status: Acute (8) Lumbar disc herniation with radiculopathy: Status: Acute (9) Right knee injury: Status: Acute (10) Injury of lumbar spine: Status: Acute (11) Infected nasal abrasion: Status: Acute (12) Presence of ileostomy: Status: Acute (13) Lumbar radiculopathy, chronic: Status: Acute (14) HLD (hyperlipidemia): Status: Acute (15) Constipation by delayed colonic transit: Status: Acute (16) Annual physical exam: Status: Acute (17) Allergic rhinitis: Status: Acute (18) Obesity: Status: Acute (19) Colitis: Status: Acute (20) Zinc deficiency: Status: Acute (21) B12 deficiency: Status: Acute (22) Vitamin D deficiency: Status: Acute (23) Presence of IVC filter: Status: Acute (24) Chronic nasal congestion: Status: Acute (25) Nasal sinus congestion: Status: Acute (26) Obese: Status: Acute (27) Low libido: Status: Acute (28) GERD without esophagitis: Status: Acute (29) H/O acute pancreatitis: Status: Acute (30) CASSIA (generalized anxiety disorder): Status: Acute (31) Hypertriglyceridemia: Status: Acute Plan The plan now is to wean and stop the insulin drip when the triglycerides are 500 or less and introduce an oral statin and a fibrate drug if if necessary especially when he is better did tolerant of p.o. intake and were going to start him on clear liquids To test that today continue surveillance cultures as needed according to temperature but will just follow for now no antibiotics indicated Quality Stroke Does the patient have a stroke diagnosis?: No VTE Prior VTE?: No VTE Risk Level:: Medical - moderate - high VTE Device Contraindication: Treatment Not Indicated VTE Drug Contraindication: N/A - Med Ordered
[2022-05-23] MEDS: Atorvastatin Calcium 20 MG TABLET PO (16:39)
[2022-05-23 17:59] LABS: Glucose, Whole Blood 96 mg/dL (60-115)
[2022-05-23 19:59] LABS: Glucose, Whole Blood 101 mg/dL (60-115)
[2022-05-23] MEDS: Enoxaparin Sodium 40 MG/0.4 ML SYRINGE SUBCUT (20:43)
[2022-05-23] MEDS: KCl 20 mEq in 5% Dex/0.9% Sod 20 MEQ/1,000 ML IV.SOLN 100 MEQ IVCONT (22:35)
[2022-05-23 23:55] LABS: Glucose, Whole Blood 104 mg/dL (60-115)
[2022-05-24] VITALS (24 sets, daily range): BP systolic 108–142; BP diastolic 54–85; PULSE 85–108; RESP 16–26; TEMP 36.8–38.6; O2SAT 92–98; BMI 32.4
[2022-05-24] MEDS: HYDROmorphone HCl 2 MG/ML VIAL 1 MG IVPUSH ×6 (00:19→20:28)
[2022-05-24 02:04] LABS: Glucose, Whole Blood 129 mg/dL (60-115)
[2022-05-24 04:33] LABS: Glucose, Whole Blood 111 mg/dL (60-115)
[2022-05-24 04:39] LABS: MANUAL DIFF FLAG NO
[2022-05-24 04:42] LABS: Basophils Percent Auto 0.3 % (0-2); Eosinophils Absolute Auto 0.2 X10*3/uL (0.0-0.4); Eosinophils Percent Auto 2.1 % (0-4); Hematocrit 35.7 % (42.0-52.0); Imm Gran Abs Auto 0.09 X10*3/uL (0.00-0.03); Lymphocytes Absolute Auto 1.5 X10*3/uL (1.2-4.9); Lymphocytes Percent Auto 15.9 % (20-40); Mean Corpuscular HGB Conc 33.6 g/dl (31.0-36.0); Mean Corpuscular Hemoglobin 25.9 pg (27.0-33.0); Mean Corpuscular Volume 76.9 fL (80.0-98.0); Mean Platelet Volume 9.8 fL (9.4-12.4); Monocytes Absolute Auto 1.2 X10*3/uL (0.1-1.2); Monocytes Percent Auto 12.3 % (2-11); Neutrophils Absolute Auto 6.4 x10*3/uL (2.0-8.3); Neutrophils Percent Auto 68.4 % (45-73); Platelet Count 243 X10*3/uL (160-400); Red Blood Count 4.64 X10*6/uL (4.60-5.80); Red Cell Distribution Width 13.9 % (11.0-16.0); White Blood Count 9.4 X10*3/uL (4.8-10.8)
[2022-05-24 04:58] LABS: Anion Gap 12 (12-20); Blood Urea Nitrogen 7 mg/dL (9-16); Calcium 8.3 mg/dL (8.4-10.2); Carbon Dioxide 22 mmol/L (22-29); Chloride 103 mmol/L (96-108); Creatinine Clr Calc Pharmacy 139.3; Estimated Glomerular Filt Rate > 60; Glucose Random 111 mg/dL (60-115); Lipase 185 U/L (8-78); Phosphorus 1.5 mg/dL (2.7-4.5); Potassium 3.9 mmol/L (3.3-5.1); Sodium 133 mmol/L (135-145); Triglycerides 738 mg/dL
[2022-05-24] MEDS: Pantoprazole Sodium 40 MG/10 ML VIAL IVPUSH ×2 (05:38→15:43)
[2022-05-24] MEDS: Potassium Phosphate/NS 15 MMOL/250 ML PLAST..BAG 62.5 MMOL IV ×2 (05:39→10:12)
[2022-05-24 06:05] LABS: Glucose, Whole Blood 119 mg/dL (60-115)
[2022-05-24] MEDS: Atorvastatin Calcium 80 MG TABLET PO (07:31)
[2022-05-24] MEDS: ondansetron HCL 4 MG/2 ML VIAL IVPUSH ×2 (07:31→15:43)
[2022-05-24 07:55] LABS: Glucose, Whole Blood 109 mg/dL (60-115)
--- NOTE | 2022-05-24 08:18 | P.PNGS_ITS ---
Subjective Subjective Date of Service: 05/24/22 Interval history: Still has pain in the left side, although this is improving overall, says he is better compared to yesterday no nausea vomiting, on liquids Physical Exam Vital Signs: Vital Signs: Last Vital Signs Temp 100.2 F 05/24/22 08:00 Pulse 99 05/24/22 08:00 Resp 24 H 05/24/22 08:00 BP 123/75 05/24/22 08:00 Pulse Ox 92 05/24/22 08:00 O2 Del Method 05/24/22 08:00 BMI result Body Mass Index 32.4 Const: Other: appears comfortable Resp: Effort & Inspection: normal respiratory effort Cardio: Rate: tachycardic GI: Other: nondistended, tender diffusely, mostly on the left side but soft, ileostomy functioning * Objective Data Active Medications Atorvastatin Calcium (Atorvastatin Calcium 80 Mg Tablet) 80 mg PO DAILY [facility] [place] Last Admin: 05/24/22 07:31 Dose: 80 mg Documented By: HUGO Dextrose (Dextrose 50 % 25 Gm/50 Ml Syringe) 25 gm IVPUSH Q30M PRN PRN Reason: Nursing Actions in Insulin Infusion Protocol Enoxaparin Sodium (Enoxaparin Sodium 40 Mg/0.4 Ml Syringe) 40 mg SUBCUT Q24H [facility] [place] Last Admin: 05/23/22 20:43 Dose: 40 mg Documented By: SEBASTIÁN Hydromorphone HCl (Hydromorphone Hcl 2 Mg/Ml Vial) 1 mg IVPUSH Q2H PRN; Protocol PRN Reason: Pain, Severe (Pain Scale 7-10) Last Admin: 05/24/22 07:29 Dose: 1 mg Documented By: HUGO Potassium Chloride/Dextrose/Sod Cl (Kcl 20 Meq In 5% Dex/0.9% Sod) 20 meq in 1,000 mls @ 100 mls/hr IVCONT .Q10H [facility] [place] Last Admin: 05/23/22 22:35 Dose: 100 mls/hr Documented By: SEBASTIÁN Insulin Human Regular (Myxredlin) 100 unit in 100 mls @ 2 mls/hr IVCONT .Q24H [facility] [place] Last Admin: 05/23/22 15:05 Dose: 2 units/hr, 2 mls/hr Documented By: YUMIKOIH Co-signed By: MARGARET Potassium Phosphate (Kphos) 15 mmol in 250 mls @ 62.5 mls/hr IV Q4H DARRYL Stop: 05/24/22 13:29 Last Admin: 05/24/22 05:39 Dose: 62.5 mls/hr Documented By: JENS Ondansetron HCl (Ondansetron Hcl 4 Mg/2 Ml Vial) 4 mg IVPUSH Q8H PRN PRN Reason: Nausea and Vomiting Last Admin: 05/24/22 07:31 Dose: 4 mg Documented By: HUGO Pantoprazole Sodium (Pantoprazole Sodium 40 Mg/10 Ml Vial) 40 mg IVPUSH BID@0630,1630 DARRYL Last Admin: 05/24/22 05:38 Dose: 40 mg Documented By: JENS Pharmacy Consult (Consult Rx Perform Med Rec) 1 each MISCELLANE ONCE PRN PRN Reason: Consult order Labs CBC & Chem 7: 05/24/22 04:02 05/24/22 04:02 Labs: Laboratory Results - last 24 hr 05/23/22 05/23/22 05/23/22 09:59 12:21 14:11 MCV MCH MCHC RDW Plt Count MPV Immature Gran % (Auto) Neut % (Auto) Lymph % (Auto) [place] % (Auto) Eos % (Auto) Baso % (Auto) Lymph # (Auto) [place] # (Auto) Eos # (Auto) Baso # (Auto) Abs Immat Gran (auto) Absolute Neuts (auto) Absolute Nucleated RBC Nucleated RBC % (auto) Anion Gap Estim Creat Clear Calc Estimated GFR POC Glucose 132 H 111 99 Random Glucose Calcium Phosphorus Magnesium Total Bilirubin AST ALT Alkaline Phosphatase Total Creatine Kinase Total Protein Albumin Triglycerides Lipase 05/23/22 05/23/22 05/23/22 15:03 15:56 17:55 MCV MCH MCHC RDW Plt Count MPV Immature Gran % (Auto) Neut % (Auto) Lymph % (Auto) [place] % (Auto) Eos % (Auto) Baso % (Auto) Lymph # (Auto) [place] # (Auto) Eos # (Auto) Baso # (Auto) Abs Immat Gran (auto) Absolute Neuts (auto) Absolute Nucleated RBC Nucleated RBC % (auto) Anion Gap 11 L Estim Creat Clear Calc 139.3 Estimated GFR > 60 POC Glucose 103 96 Random Glucose 111 Calcium 8.2 L Phosphorus 1.4 L Magnesium 1.8 Total Bilirubin 2.3 H AST 17 ALT 27 Alkaline Phosphatase 64 Total Creatine Kinase 88 Total Protein 5.8 L Albumin 3.2 L Triglycerides 796 Lipase 193 H 05/23/22 05/23/22 05/24/22 19:55 23:52 02:01 MCV MCH MCHC RDW Plt Count MPV Immature Gran % (Auto) Neut % (Auto) Lymph % (Auto) [place] % (Auto) Eos % (Auto) Baso % (Auto) Lymph # (Auto) [place] # (Auto) Eos # (Auto) Baso # (Auto) Abs Immat Gran (auto) Absolute Neuts (auto) Absolute Nucleated RBC Nucleated RBC % (auto) Anion Gap Estim Creat Clear Calc Estimated GFR POC Glucose 101 104 129 H Random Glucose Calcium Phosphorus Magnesium Total Bilirubin AST ALT Alkaline Phosphatase Total Creatine Kinase Total Protein Albumin Triglycerides Lipase 05/24/22 05/24/22 05/24/22 04:02 04:02 04:21 MCV 76.9 L MCH 25.9 L MCHC 33.6 RDW 13.9 Plt Count 243 MPV 9.8 Immature Gran % (Auto) 1.0 H Neut % (Auto) 68.4 Lymph % (Auto) 15.9 L [place] % (Auto) 12.3 H Eos % (Auto) 2.1 Baso % (Auto) 0.3 Lymph # (Auto) 1.5 [place] # (Auto) 1.2 Eos # (Auto) 0.2 Baso # (Auto) 0.0 Abs Immat Gran (auto) 0.09 H Absolute Neuts (auto) 6.4 Absolute Nucleated RBC 0.000 Nucleated RBC % (auto) 0.0 Anion Gap 12 Estim Creat Clear Calc 139.3 Estimated GFR > 60 POC Glucose 111 Random Glucose 111 Calcium 8.3 L Phosphorus 1.5 L Magnesium 2.0 Total Bilirubin AST ALT Alkaline Phosphatase Total Creatine Kinase Total Protein Albumin Triglycerides 738 Lipase 185 H 05/24/22 05/24/22 05:58 07:52 MCV MCH MCHC RDW Plt Count MPV Immature Gran % (Auto) Neut % (Auto) Lymph % (Auto) [place] % (Auto) Eos % (Auto) Baso % (Auto) Lymph # (Auto) [place] # (Auto) Eos # (Auto) Baso # (Auto) Abs Immat Gran (auto) Absolute Neuts (auto) Absolute Nucleated RBC Nucleated RBC % (auto) Anion Gap Estim Creat Clear Calc Estimated GFR POC Glucose 119 H 109 Random Glucose Calcium Phosphorus Magnesium Total Bilirubin AST ALT Alkaline Phosphatase Total Creatine Kinase Total Protein Albumin Triglycerides Lipase Microbiology Microbiology Results: Microbiology 05/22/22 21:12 Blood Culture - Preliminary Blood - Venous No growth after 24 hours. 05/22/22 21:12 Blood Culture - Preliminary Blood - Venous No growth after 24 hours. Procedures Date of Service Date of Service: 05/24/22 Progress Note: A&P Assessment and plan (1) Acute pancreatitis: Status: Acute Assessment and Plan: secondary to to hypertriglyceridemia triglyceride level down to 700 but seems to have plateaued a little bit on clear liquids pain management as per etl bi developer - to start high-dose statin today, hopefully able to DC insulin drip improving overall (2) Hypertriglyceridemia: Status: Acute Time Spent With Patient Time: Total time spent is greater than 50% in coordination of care (as documented) at patient's floor/unit and/or counseling patient: Quality Stroke Does the patient have a stroke diagnosis?: No VTE Prior VTE?: No VTE Risk Level:: Medical - moderate - high VTE Device Contraindication: Treatment Not Indicated VTE Drug Contraindication: N/A - Med Ordered
[2022-05-24] MEDS: KCl 20 mEq in 5% Dex/0.9% Sod 20 MEQ/1,000 ML IV.SOLN 100 MEQ IVCONT ×2 (08:51→20:17)
[2022-05-24 10:07] LABS: Glucose, Whole Blood 118 mg/dL (60-115)
[2022-05-24 12:36] LABS: Glucose, Whole Blood 115 mg/dL (60-115)
[2022-05-24 14:09] LABS: Glucose, Whole Blood 118 mg/dL (60-115)
[2022-05-24] MEDS: Insulin Regular/NS 100 UNIT/100 ML PLAST..BAG IVCONT (15:43)
[2022-05-24 16:13] LABS: Glucose, Whole Blood 112 mg/dL (60-115)
--- NOTE | 2022-05-24 17:08 | P.PNCC_ITS ---
Subjective Subjective Date of Service: 05/24/22 Interval History: 42-year-old with a recurrence of pancreatitis based on hypertriglyceridemia with a wonderful response to IV insulin drip doing very well but still has some nausea and still has some abdominal pain but ever diminishing and the lipase is responding coming down triglycerides are down 700 and we have introduced a toward the statin at 80 mg Also history of ulcerative colitis status post total colectomy with an ileostomy and he has been asymptomatic since Critical Care Time (minutes): 45 Physical Exam Vital Signs: Vital Signs: Last Vital Signs Temp 98.5 F 05/24/22 16:00 Pulse 97 05/24/22 16:00 Resp 20 05/24/22 16:00 BP 129/79 05/24/22 16:00 Pulse Ox 95 05/24/22 16:00 O2 Del Method 05/24/22 16:00 BMI result Body Mass Index 32.4 Awake alert and nonfocal Cardiac exam bedside normal LV function by echo Chest is clear without adventitious sounds 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 but somewhat softer with good bowel sounds Skin is intact Objective Data Labs CBC & Chem 7: 05/24/22 04:02 05/24/22 04:02 Labs: Laboratory Results - last 24 hr 05/23/22 05/23/22 05/23/22 17:55 19:55 23:52 WBC RBC Hgb Hct MCV MCH MCHC RDW Plt Count MPV Immature Gran % (Auto) Neut % (Auto) Lymph % (Auto) [place] % (Auto) Eos % (Auto) Baso % (Auto) Lymph # (Auto) [place] # (Auto) Eos # (Auto) Baso # (Auto) Abs Immat Gran (auto) Absolute Neuts (auto) Absolute Nucleated RBC Nucleated RBC % (auto) Sodium Potassium Chloride Carbon Dioxide Anion Gap BUN Creatinine Estim Creat Clear Calc Estimated GFR POC Glucose 96 101 104 Random Glucose Calcium Phosphorus Magnesium Triglycerides Lipase 05/24/22 05/24/22 05/24/22 02:01 04:02 04:02 WBC 9.4 RBC 4.64 Hgb 12.0 L Hct 35.7 L MCV 76.9 L MCH 25.9 L MCHC 33.6 RDW 13.9 Plt Count 243 MPV 9.8 Immature Gran % (Auto) 1.0 H Neut % (Auto) 68.4 Lymph % (Auto) 15.9 L [place] % (Auto) 12.3 H Eos % (Auto) 2.1 Baso % (Auto) 0.3 Lymph # (Auto) 1.5 [place] # (Auto) 1.2 Eos # (Auto) 0.2 Baso # (Auto) 0.0 Abs Immat Gran (auto) 0.09 H Absolute Neuts (auto) 6.4 Absolute Nucleated RBC 0.000 Nucleated RBC % (auto) 0.0 Sodium 133 L Potassium 3.9 Chloride 103 Carbon Dioxide 22 Anion Gap 12 BUN 7 L Creatinine 0.83 Estim Creat Clear Calc 139.3 Estimated GFR > 60 POC Glucose 129 H Random Glucose 111 Calcium 8.3 L Phosphorus 1.5 L Magnesium 2.0 Triglycerides 738 Lipase 185 H 05/24/22 05/24/22 05/24/22 04:21 05:58 07:52 WBC RBC Hgb Hct MCV MCH MCHC RDW Plt Count MPV Immature Gran % (Auto) Neut % (Auto) Lymph % (Auto) [place] % (Auto) Eos % (Auto) Baso % (Auto) Lymph # (Auto) [place] # (Auto) Eos # (Auto) Baso # (Auto) Abs Immat Gran (auto) Absolute Neuts (auto) Absolute Nucleated RBC Nucleated RBC % (auto) Sodium Potassium Chloride Carbon Dioxide Anion Gap BUN Creatinine Estim Creat Clear Calc Estimated GFR POC Glucose 111 119 H 109 Random Glucose Calcium Phosphorus Magnesium Triglycerides Lipase 05/24/22 05/24/22 05/24/22 10:04 12:32 14:05 WBC RBC Hgb Hct MCV MCH MCHC RDW Plt Count MPV Immature Gran % (Auto) Neut % (Auto) Lymph % (Auto) [place] % (Auto) Eos % (Auto) Baso % (Auto) Lymph # (Auto) [place] # (Auto) Eos # (Auto) Baso # (Auto) Abs Immat Gran (auto) Absolute Neuts (auto) Absolute Nucleated RBC Nucleated RBC % (auto) Sodium Potassium Chloride Carbon Dioxide Anion Gap BUN Creatinine Estim Creat Clear Calc Estimated GFR POC Glucose 118 H 115 118 H Random Glucose Calcium Phosphorus Magnesium Triglycerides Lipase 05/24/22 16:09 WBC RBC Hgb Hct MCV MCH MCHC RDW Plt Count MPV Immature Gran % (Auto) Neut % (Auto) Lymph % (Auto) [place] % (Auto) Eos % (Auto) Baso % (Auto) Lymph # (Auto) [place] # (Auto) Eos # (Auto) Baso # (Auto) Abs Immat Gran (auto) Absolute Neuts (auto) Absolute Nucleated RBC Nucleated RBC % (auto) Sodium Potassium Chloride Carbon Dioxide Anion Gap BUN Creatinine Estim Creat Clear Calc Estimated GFR POC Glucose 112 Random Glucose Calcium Phosphorus Magnesium Triglycerides Lipase Microbiology Microbiology Results: Microbiology 05/23/22 16:21 Urine Catheterized - Jung Catheter Urine Culture - Preliminary No growth to date. 05/22/22 21:12 Blood - Venous Blood Culture - Preliminary No growth after 24 hours. 05/22/22 21:12 Blood - Venous Blood Culture - Preliminary No growth after 24 hours. Progress Note: A&P Assessment and plan (1) Hypertriglyceridemia: Status: Acute (2) Acute pancreatitis: Status: Acute (3) Inflammatory bowel diseases (IBD): Status: Acute (4) Acute pancreatitis: Status: Acute (5) Sleep disorder breathing: Status: Acute (6) Presence of ileostomy: Status: Acute (7) HLD (hyperlipidemia): Status: Acute (8) Colitis: Status: Acute (9) Hypertriglyceridemia: Status: Acute Plan Until the triglycerides come down below 500 we continue the IV insulin drip and advance his diet as he tolerates Quality Stroke Does the patient have a stroke diagnosis?: No VTE Prior VTE?: No VTE Risk Level:: Medical - moderate - high VTE Device Contraindication: Treatment Not Indicated VTE Drug Contraindication: N/A - Med Ordered
[2022-05-24 18:09] LABS: Anion Gap 11 (12-20); Blood Urea Nitrogen 6 mg/dL (9-16); Calcium 8.3 mg/dL (8.4-10.2); Carbon Dioxide 21 mmol/L (22-29); Chloride 104 mmol/L (96-108); Creatinine Clr Calc Pharmacy 160.3; Estimated Glomerular Filt Rate > 60; Glucose Random 113 mg/dL (60-115); Magnesium 2.1 mg/dL (1.6-2.6); Phosphorus 1.8 mg/dL (2.7-4.5); Potassium 3.8 mmol/L (3.3-5.1); Sodium 132 mmol/L (135-145); Triglycerides 737 mg/dL
[2022-05-24 18:18] LABS: Glucose, Whole Blood 111 mg/dL (60-115)
--- NOTE | 2022-05-24 19:06 | PC.NURSE ---
Pt's pavon dc'd at 1045, tolerated well, voiding appropriately. Continues on Insulin drip. Triglyceride levels checked throughout shift, MD aware of results. Encouraged pt to ambulate. Pain and nausea managed with PRN meds. Safety maintained.
[2022-05-24 19:59] LABS: Glucose, Whole Blood 103 mg/dL (60-115)
[2022-05-24] MEDS: Enoxaparin Sodium 40 MG/0.4 ML SYRINGE SUBCUT (20:29)
[2022-05-24] MEDS: Fenofibrate 54 MG TABLET PO (20:30)
[2022-05-24 22:11] LABS: Glucose, Whole Blood 119 mg/dL (60-115)
[2022-05-25] VITALS (28 sets, daily range): BP systolic 104–142; BP diastolic 66–88; PULSE 78–98; RESP 17–23; TEMP 36.9–37.3; O2SAT 93–98; BMI 32.6
[2022-05-25 00:05] LABS: Glucose, Whole Blood 103 mg/dL (60-115)
[2022-05-25] MEDS: HYDROmorphone HCl 2 MG/ML VIAL 1 MG IVPUSH ×6 (00:05→22:26)
--- NOTE | 2022-05-25 02:36 | PC.NURSE ---
POC GLUCOSE CHECKS CHANGE TO Q4H PER MD ORDERS..INSULIN REMAINS 2 UNITS/HR FOR >48 HOURS AND STABLE POC GLUCOSE LEVELS
[2022-05-25 04:36] LABS: MANUAL DIFF FLAG NO
[2022-05-25 04:39] LABS: Basophils Percent Auto 0.3 % (0-2); Eosinophils Absolute Auto 0.4 X10*3/uL (0.0-0.4); Eosinophils Percent Auto 4.1 % (0-4); Hematocrit 32.5 % (42.0-52.0); Hemoglobin 11.1 g/dl (14.0-18.0); Imm Gran Abs Auto 0.16 X10*3/uL (0.00-0.03); Imm Gran Pct Auto 1.5 % (0.0-0.4); Lymphocytes Percent Auto 19.6 % (20-40); Mean Corpuscular HGB Conc 34.2 g/dl (31.0-36.0); Mean Corpuscular Volume 76.1 fL (80.0-98.0); Mean Platelet Volume 9.4 fL (9.4-12.4); Monocytes Absolute Auto 1.3 X10*3/uL (0.1-1.2); Monocytes Percent Auto 12.3 % (2-11); Neutrophils Absolute Auto 6.5 x10*3/uL (2.0-8.3); Neutrophils Percent Auto 62.2 % (45-73); Platelet Count 252 X10*3/uL (160-400); Red Blood Count 4.27 X10*6/uL (4.60-5.80); Red Cell Distribution Width 13.8 % (11.0-16.0); White Blood Count 10.4 X10*3/uL (4.8-10.8)
[2022-05-25] MEDS: KCl 20 mEq in 5% Dex/0.9% Sod 20 MEQ/1,000 ML IV.SOLN 100 MEQ IVCONT ×3 (05:06→23:33)
[2022-05-25 05:07] LABS: Alanine Aminotransferase 25 U/L (0-40); Albumin Level 3.2 g/dL (3.5-5.0); Alkaline Phosphatase 86 U/L (39-117); Anion Gap 12 (12-20); Aspartate Amino Transferase 23 U/L (5-37); Bilirubin Total 0.9 mg/dL (0.0-1.0); Blood Urea Nitrogen 6 mg/dL (9-16); Calcium 8.3 mg/dL (8.4-10.2); Carbon Dioxide 22 mmol/L (22-29); Chloride 103 mmol/L (96-108); Creatinine Clr Calc Pharmacy 151.9; Estimated Glomerular Filt Rate > 60; Glucose Random 118 mg/dL (60-115); Phosphorus 2.2 mg/dL (2.7-4.5); Potassium 3.8 mmol/L (3.3-5.1); Sodium 133 mmol/L (135-145); Total Protein 5.8 g/dL (6.5-8.0); Triglycerides 746 mg/dL
[2022-05-25] MEDS: Pantoprazole Sodium 40 MG/10 ML VIAL IVPUSH ×2 (05:07→16:06)
[2022-05-25 05:21] LABS: Lipase 306 U/L (8-78)
--- NOTE | 2022-05-25 07:58 | P.PNGS_ITS ---
Subjective Subjective Date of Service: 05/25/22 Interval history: Abdominal pain mainly in the left lower quadrant. Reports feeling nauseous especially with the smell of food. Bowels are moving per ostomy. Pain med seem to help for awhile. Physical Exam Vital Signs: Vital Signs: Last Vital Signs Temp 98.4 F 05/25/22 03:00 Pulse 91 05/25/22 07:00 Resp 22 H 05/25/22 07:00 BP 125/88 05/25/22 07:00 Pulse Ox 96 05/25/22 07:00 O2 Del Method 05/25/22 07:00 BMI result Body Mass Index 32.6 Const: General: no acute distress Nutritional Appearance: well nourished Orientation/consciousness: patient oriented x3 Limitations: no limitations Eyes: Sclerae: sclerae normal Resp: Effort & Inspection: normal respiratory effort, no audible wheezes, no cough and no respiratory distress Cardio: Rate: tachycardic GI: Other: Soft, nondistended, tender in the left lower quadrant without peritoneal signs. Bowel sounds active. Ostomy producing liquid stool. Skin: Other: Warm and dry. Neuro: General: patient oriented x3 Extrem: Other: Normal capillary refill Objective Data Active Medications Atorvastatin Calcium (Atorvastatin Calcium 80 Mg Tablet) 80 mg PO DAILY [facility] Last Admin: 05/24/22 07:31 Dose: 80 mg Documented By: HUGO Dextrose (Dextrose 50 % 25 Gm/50 Ml Syringe) 25 gm IVPUSH Q30M PRN PRN Reason: Nursing Actions in Insulin Infusion Protocol Enoxaparin Sodium (Enoxaparin Sodium 40 Mg/0.4 Ml Syringe) 40 mg SUBCUT Q24H [facility] Last Admin: 05/24/22 20:29 Dose: 40 mg Documented By: TICO Fenofibrate (Fenofibrate 160 Mg Tablet) 160 mg PO DAILY [facility] Hydromorphone HCl (Hydromorphone Hcl 2 Mg/Ml Vial) 1 mg IVPUSH Q2H PRN; Protocol PRN Reason: Pain, Severe (Pain Scale 7-10) Last Admin: 05/25/22 05:08 Dose: 1 mg Documented By: JENS Insulin Human Regular (Myxredlin) 100 unit in 100 mls @ 2 mls/hr IVCONT .Q24H [facility] Last Admin: 05/24/22 15:43 Dose: 2 units/hr, 2 mls/hr Documented By: HUGO Co-signed By: CONSUELO Potassium Chloride/Dextrose/Sod Cl (Kcl 20 Meq In 5% Dex/0.9% Sod) 20 meq in 1,000 mls @ 100 mls/hr IVCONT .Q10H [facility] Last Admin: 05/25/22 05:06 Dose: 100 mls/hr Documented By: JENS Niacin (Niacin Er 250 Mg Tablet.Er) 250 mg PO DAILY [facility] Ondansetron HCl (Ondansetron Hcl 4 Mg/2 Ml Vial) 4 mg IVPUSH Q8H PRN PRN Reason: Nausea and Vomiting Last Admin: 05/24/22 15:43 Dose: 4 mg Documented By: HUGO Pantoprazole Sodium (Pantoprazole Sodium 40 Mg/10 Ml Vial) 40 mg IVPUSH BID@0630,1630 [facility] Last Admin: 05/25/22 05:07 Dose: 40 mg Documented By: JNES Pharmacy Consult (Consult Rx Perform Med Rec) 1 each MISCELLANE ONCE PRN PRN Reason: Consult order Labs CBC & Chem 7: 05/25/22 04:22 05/25/22 04:22 Labs: Laboratory Results - last 24 hr 05/24/22 05/24/22 05/24/22 10:04 12:32 14:05 MCV MCH MCHC RDW Plt Count MPV Immature Gran % (Auto) Neut % (Auto) Lymph % (Auto) [place] % (Auto) Eos % (Auto) Baso % (Auto) Lymph # (Auto) [place] # (Auto) Eos # (Auto) Baso # (Auto) Abs Immat Gran (auto) Absolute Neuts (auto) Absolute Nucleated RBC Nucleated RBC % (auto) Anion Gap Estim Creat Clear Calc Estimated GFR POC Glucose 118 H 115 118 H Random Glucose Calcium Phosphorus Magnesium Total Bilirubin AST ALT Alkaline Phosphatase Total Protein Albumin Triglycerides Lipase 05/24/22 05/24/22 05/24/22 16:09 17:35 18:15 MCV MCH MCHC RDW Plt Count MPV Immature Gran % (Auto) Neut % (Auto) Lymph % (Auto) [place] % (Auto) Eos % (Auto) Baso % (Auto) Lymph # (Auto) [place] # (Auto) Eos # (Auto) Baso # (Auto) Abs Immat Gran (auto) Absolute Neuts (auto) Absolute Nucleated RBC Nucleated RBC % (auto) Anion Gap 11 L Estim Creat Clear Calc 160.3 Estimated GFR > 60 POC Glucose 112 111 Random Glucose 113 Calcium 8.3 L Phosphorus 1.8 L Magnesium 2.1 Total Bilirubin AST ALT Alkaline Phosphatase Total Protein Albumin Triglycerides 737 Lipase 05/24/22 05/24/22 05/24/22 19:56 22:08 23:57 MCV MCH MCHC RDW Plt Count MPV Immature Gran % (Auto) Neut % (Auto) Lymph % (Auto) [place] % (Auto) Eos % (Auto) Baso % (Auto) Lymph # (Auto) [place] # (Auto) Eos # (Auto) Baso # (Auto) Abs Immat Gran (auto) Absolute Neuts (auto) Absolute Nucleated RBC Nucleated RBC % (auto) Anion Gap Estim Creat Clear Calc Estimated GFR POC Glucose 103 119 H 103 Random Glucose Calcium Phosphorus Magnesium Total Bilirubin AST ALT Alkaline Phosphatase Total Protein Albumin Triglycerides Lipase 05/25/22 05/25/22 04:22 04:22 MCV 76.1 L MCH 26.0 L MCHC 34.2 RDW 13.8 Plt Count 252 MPV 9.4 Immature Gran % (Auto) 1.5 H Neut % (Auto) 62.2 Lymph % (Auto) 19.6 L [place] % (Auto) 12.3 H Eos % (Auto) 4.1 H Baso % (Auto) 0.3 Lymph # (Auto) 2.0 [place] # (Auto) 1.3 H Eos # (Auto) 0.4 Baso # (Auto) 0.0 Abs Immat Gran (auto) 0.16 H Absolute Neuts (auto) 6.5 Absolute Nucleated RBC 0.000 Nucleated RBC % (auto) 0.0 Anion Gap 12 Estim Creat Clear Calc 151.9 Estimated GFR > 60 POC Glucose Random Glucose 118 H Calcium 8.3 L Phosphorus 2.2 L Magnesium 2.0 Total Bilirubin 0.9 AST 23 ALT 25 Alkaline Phosphatase 86 Total Protein 5.8 L Albumin 3.2 L Triglycerides 746 Lipase 306 H Microbiology Microbiology Results: Microbiology 05/23/22 16:21 Urine Culture - Final Urine Catheterized - Jung Catheter No growth. 05/22/22 21:12 Blood Culture - Preliminary Blood - Venous No growth after 48 hours. 05/22/22 21:12 Blood Culture - Preliminary Blood - Venous No growth after 48 hours. Procedures Date of Service Date of Service: 05/25/22 Progress Note: A&P Assessment and plan (1) Acute pancreatitis: Status: Acute Assessment and Plan: 42-year-old male patient with acute pancreatitis due to hypertriglyceridemia. Patient started on clear liquids however he does have much of an appetite and reports some nausea. Bowels are functioning with liquid stool in his ostomy appliance. Pain seems to be controlled with current meds. High doses statins as per ibm bpm developer. Continue supportive care. (2) Hypertriglyceridemia: Status: Acute Time Spent With Patient Time: Total time spent is greater than 50% in coordination of care (as documented) at patient's floor/unit and/or counseling patient: Quality Stroke Does the patient have a stroke diagnosis?: No VTE Prior VTE?: No VTE Risk Level:: Medical - moderate - high VTE Device Contraindication: Treatment Not Indicated VTE Drug Contraindication: N/A - Med Ordered
[2022-05-25 08:01] LABS: Glucose, Whole Blood 109 mg/dL (60-115)
[2022-05-25] MEDS: Atorvastatin Calcium 80 MG TABLET PO (08:34)
[2022-05-25] MEDS: Fenofibrate 160 MG TABLET PO (09:41)
--- NOTE | 2022-05-25 11:44 | P.PNCC_ITS ---
Subjective Subjective Date of Service: 05/25/22 Interval History: 42-year-old with hypertriglyceridemia and at least now his 2nd bout of acute pancreatitis currently on IV insulin drip reducing the level from over 4000 to the current level in the mid 700s but it seems to have plateaued at this point and he still has a plateaued lipase elevation close to 300 and still symptomatic definitely less acutely tender but still persistently complaining of nausea and anorexia Metabolically otherwise well-preserved remains on the insulin drip at 2 units/hour and I been slowly adding 1st his statin drug and then his fibrate and I just added initial dose of niacin as well and await 12 hours and repeat triglycerides again and fees down to close to 500 we could probably stop the insulin drip He has a 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 and he has got underlying ulcerative colitis and he had a subtotal colectomy and an ileostomy and he has been asymptomatic since then not on any immunosuppressive medicine Critical Care Time (minutes): 45 Physical Exam Vital Signs: Vital Signs: Last Vital Signs Temp 99.1 F 05/25/22 08:00 Pulse 80 05/25/22 11:00 Resp 17 05/25/22 11:00 BP 123/70 05/25/22 11:00 Pulse Ox 97 05/25/22 11:00 O2 Del Method 05/25/22 11:00 BMI result Body Mass Index 32.6 His heart rate over the last 2-3 days has come down from an intractable 120 to the current level of 80 in sinus oxygen saturation room air 98% with a pressure of 120/70 Abdomen continuous still operator but but a little bit less so less guarded and he has posit bennett bowel sounds Cardiac exam by bedside echo showing 55% ejection fraction globally normal systolic wall motion and both LV and RV size are normal and no primary valve or pericardial disease Lungs are clear Skin intact with no livedo no acrocyanosis Objective Data Labs CBC & Chem 7: 05/25/22 04:22 05/25/22 04:22 Labs: Laboratory Results - last 24 hr 05/24/22 05/24/22 05/24/22 12:32 14:05 16:09 WBC RBC Hgb Hct MCV MCH MCHC RDW Plt Count MPV Immature Gran % (Auto) Neut % (Auto) Lymph % (Auto) [place] % (Auto) Eos % (Auto) Baso % (Auto) Lymph # (Auto) [place] # (Auto) Eos # (Auto) Baso # (Auto) Abs Immat Gran (auto) Absolute Neuts (auto) Absolute Nucleated RBC Nucleated RBC % (auto) Sodium Potassium Chloride Carbon Dioxide Anion Gap BUN Creatinine Estim Creat Clear Calc Estimated GFR POC Glucose 115 118 H 112 Random Glucose Calcium Phosphorus Magnesium Total Bilirubin AST ALT Alkaline Phosphatase Total Protein Albumin Triglycerides Lipase 05/24/22 05/24/22 05/24/22 17:35 18:15 19:56 WBC RBC Hgb Hct MCV MCH MCHC RDW Plt Count MPV Immature Gran % (Auto) Neut % (Auto) Lymph % (Auto) [place] % (Auto) Eos % (Auto) Baso % (Auto) Lymph # (Auto) [place] # (Auto) Eos # (Auto) Baso # (Auto) Abs Immat Gran (auto) Absolute Neuts (auto) Absolute Nucleated RBC Nucleated RBC % (auto) Sodium 132 L Potassium 3.8 Chloride 104 Carbon Dioxide 21 L Anion Gap 11 L BUN 6 L Creatinine 0.72 Estim Creat Clear Calc 160.3 Estimated GFR > 60 POC Glucose 111 103 Random Glucose 113 Calcium 8.3 L Phosphorus 1.8 L Magnesium 2.1 Total Bilirubin AST ALT Alkaline Phosphatase Total Protein Albumin Triglycerides 737 Lipase 05/24/22 05/24/22 05/25/22 22:08 23:57 04:22 WBC 10.4 RBC 4.27 L Hgb 11.1 L Hct 32.5 L MCV 76.1 L MCH 26.0 L MCHC 34.2 RDW 13.8 Plt Count 252 MPV 9.4 Immature Gran % (Auto) 1.5 H Neut % (Auto) 62.2 Lymph % (Auto) 19.6 L [place] % (Auto) 12.3 H Eos % (Auto) 4.1 H Baso % (Auto) 0.3 Lymph # (Auto) 2.0 [place] # (Auto) 1.3 H Eos # (Auto) 0.4 Baso # (Auto) 0.0 Abs Immat Gran (auto) 0.16 H Absolute Neuts (auto) 6.5 Absolute Nucleated RBC 0.000 Nucleated RBC % (auto) 0.0 Sodium Potassium Chloride Carbon Dioxide Anion Gap BUN Creatinine Estim Creat Clear Calc Estimated GFR POC Glucose 119 H 103 Random Glucose Calcium Phosphorus Magnesium Total Bilirubin AST ALT Alkaline Phosphatase Total Protein Albumin Triglycerides Lipase 05/25/22 05/25/22 04:22 07:57 WBC RBC Hgb Hct MCV MCH MCHC RDW Plt Count MPV Immature Gran % (Auto) Neut % (Auto) Lymph % (Auto) [place] % (Auto) Eos % (Auto) Baso % (Auto) Lymph # (Auto) [place] # (Auto) Eos # (Auto) Baso # (Auto) Abs Immat Gran (auto) Absolute Neuts (auto) Absolute Nucleated RBC Nucleated RBC % (auto) Sodium 133 L Potassium 3.8 Chloride 103 Carbon Dioxide 22 Anion Gap 12 BUN 6 L Creatinine 0.76 Estim Creat Clear Calc 151.9 Estimated GFR > 60 POC Glucose 109 Random Glucose 118 H Calcium 8.3 L Phosphorus 2.2 L Magnesium 2.0 Total Bilirubin 0.9 AST 23 ALT 25 Alkaline Phosphatase 86 Total Protein 5.8 L Albumin 3.2 L Triglycerides 746 Lipase 306 H Microbiology Microbiology Results: Microbiology 05/23/22 16:21 Urine Catheterized - Jung Catheter Urine Culture - Final No growth. 05/22/22 21:12 Blood - Venous Blood Culture - Preliminary No growth after 48 hours. 05/22/22 21:12 Blood - Venous Blood Culture - Preliminary No growth after 48 hours. Progress Note: A&P Assessment and plan (1) Hypertriglyceridemia: Status: Acute (2) Acute pancreatitis: Status: Acute (3) Sinusitis: Status: Acute (4) Inflammatory bowel diseases (IBD): Status: Acute (5) Acute pancreatitis: Status: Acute (6) Sleep disorder breathing: Status: Acute (7) Presence of ileostomy: Status: Acute (8) HLD (hyperlipidemia): Status: Acute (9) Obesity: Status: Acute (10) Colitis: Status: Acute (11) GERD without esophagitis: Status: Acute (12) Hypertriglyceridemia: Status: Acute Plan Acute pancreatitis caused by hypertriglyceridemia and the patient is slowly improving most importantly right now he no longer has the low-grade temperature and his heart rate has come down to 80 both indicating that he is falling into the less risky group Plan is to titrate his oral medication in the hopes of stopping his insulin drip Quality Stroke Does the patient have a stroke diagnosis?: No VTE Prior VTE?: No VTE Risk Level:: Medical - moderate - high VTE Device Contraindication: Treatment Not Indicated VTE Drug Contraindication: N/A - Med Ordered
[2022-05-25 12:10] LABS: Glucose, Whole Blood 112 mg/dL (60-115)
[2022-05-25] MEDS: ondansetron HCL 4 MG/2 ML VIAL IVPUSH (14:21)
[2022-05-25] MEDS: Insulin Regular/NS 100 UNIT/100 ML PLAST..BAG IVCONT (15:31)
--- NOTE | 2022-05-25 16:13 | PC.NURSE ---
PATIENT ALERT AND ORIENTED ON ASSESSMENT. PATIENT COMPLAINED OF PAIN AND WAS GIVEN 1MG IVP PRN DILAUDID WITH GOOD EFFECT, TWICE THROUGHOUT SHIFT. SEE EMAR. PATIENT COMPLAINED OF NAUSEA AND WAS GIVEN 4 MG IVP PRN ZOFRAN WITH GOOD EFFECT, SEE EMAR. PATIENT VOIDED TWICE IN URINAL, OUTPUT OF 700ML . PATIENT ABLE TO EMPTY AND CARE FOR OSTOMY BAG, OUTPUT OF 700ML. PATIENT UPDATED ON HEALTH STATUS AND MEDICATIONS, HELPED TO REPOSITION Q2HR.
[2022-05-25 16:23] LABS: Glucose, Whole Blood 121 mg/dL (60-115)
[2022-05-25] MEDS: Enoxaparin Sodium 40 MG/0.4 ML SYRINGE SUBCUT (19:17)
[2022-05-25 20:10] LABS: Glucose, Whole Blood 112 mg/dL (60-115)
--- NOTE | 2022-05-25 23:32 | PC.NURSE ---
Assumed care at 19:00. Alert and oriented, responds appropriately. Continues to report pain in left upper and left lower abdominal quadrants, 9/10 sharp intermittent, trended down to 5/10 with 1 mg IV dilaudid. Patient gets nauseous with IV dilaudid, which he asks to have pushed very slow, which was pushed IV over 2 minutes with good effect x 2 this shift. Patient also reports some sense of abdominal discomfort that resolves with sips of clears. No vomiting. Ileostomy emptied x2 for total of 650 ccs of malodorous liquid dark green/brown stool. Voiding in urinal without issue.
[2022-05-25 23:42] LABS: Glucose, Whole Blood 92 mg/dL (60-115)
[2022-05-26] VITALS (16 sets, daily range): BP systolic 113–160; BP diastolic 51–96; PULSE 74–95; RESP 15–24; TEMP 36.7–37.3; O2SAT 91–100; BMI 32.2
[2022-05-26] MEDS: HYDROmorphone HCl 2 MG/ML VIAL 1 MG IVPUSH ×6 (03:02→23:44)
[2022-05-26 03:40] LABS: Glucose, Whole Blood 109 mg/dL (60-115)
[2022-05-26] MEDS: Ketorolac Tromethamine 15 MG/ML VIAL IVPUSH (05:07)
[2022-05-26] MEDS: Pantoprazole Sodium 40 MG/10 ML VIAL IVPUSH (05:07)
[2022-05-26 05:18] LABS: Basophils Percent Auto 0.4 % (0-2); Eosinophils Absolute Auto 0.4 X10*3/uL (0.0-0.4); Eosinophils Percent Auto 3.5 % (0-4); Hematocrit 32.8 % (42.0-52.0); Hemoglobin 11.3 g/dl (14.0-18.0); Imm Gran Abs Auto 0.27 X10*3/uL (0.00-0.03); Imm Gran Pct Auto 2.4 % (0.0-0.4); Lymphocytes Absolute Auto 1.9 X10*3/uL (1.2-4.9); Lymphocytes Percent Auto 17.4 % (20-40); MANUAL DIFF FLAG SCAN; Mean Corpuscular HGB Conc 34.5 g/dl (31.0-36.0); Mean Corpuscular Hemoglobin 26.2 pg (27.0-33.0); Mean Corpuscular Volume 75.9 fL (80.0-98.0); Mean Platelet Volume 9.2 fL (9.4-12.4); Monocytes Absolute Auto 1.5 X10*3/uL (0.1-1.2); Monocytes Percent Auto 13.8 % (2-11); Neutrophils Percent Auto 62.5 % (45-73); Platelet Count 263 X10*3/uL (160-400); Red Blood Count 4.32 X10*6/uL (4.60-5.80); Red Cell Distribution Width 13.4 % (11.0-16.0); SCAN SMEAR FLAG 1; White Blood Count 11.1 X10*3/uL (4.8-10.8)
[2022-05-26 05:38] LABS: SLIDE REVIEW VERIFIED
[2022-05-26 05:51] LABS: Alanine Aminotransferase 34 U/L (0-40); Albumin Level 3.5 g/dL (3.5-5.0); Alkaline Phosphatase 125 U/L (39-117); Anion Gap 16 (12-20); Aspartate Amino Transferase 37 U/L (5-37); Bilirubin Total 0.7 mg/dL (0.0-1.0); Blood Urea Nitrogen 5 mg/dL (9-16); Calcium 8.6 mg/dL (8.4-10.2); Carbon Dioxide 20 mmol/L (22-29); Chloride 101 mmol/L (96-108); Creatinine Clr Calc Pharmacy 145.7; Estimated Glomerular Filt Rate > 60; Glucose Random 114 mg/dL (60-115); Lipase 796 U/L (8-78); Magnesium 2.1 mg/dL (1.6-2.6); Phosphorus 3.5 mg/dL (2.7-4.5); Potassium 3.7 mmol/L (3.3-5.1); Sodium 133 mmol/L (135-145); Total Protein 6.3 g/dL (6.5-8.0); Triglycerides 490 mg/dL
--- NOTE | 2022-05-26 06:04 | P.PNCC_ITS ---
Subjective Subjective Date of Service: 05/26/22 Interval History: 42-year-old male with 1 of several episodes of pancreatitis based on hypertriglyceridemia which is untreated and uncontrolled he was taking fenofibrate at home and he is not a diabetic of course is not on any particular diet Presented with abdominal pain and nausea and vomiting with a triglyceride level of over 4000 elevated lipase and a CT scan clearly positive for pancreatitis with surrounding stranding indicating inflammation in the retroperitoneum but no collections such as a pseudocyst or phlegmon and because of the requirement for an insulin drip became down here to us in the ICU and is now spent several days on continuous IV insulin with volume replacement and he finally came down to triglyceride level of 490 meeting the criteria below 500 despite the persistently elevated lipase he is clinically improving his initial resting heart rates been having been over 120 which generally is a negative prognostic ator indicating severity but he has gradually been diminishing in the last 30 hours currently a resting rate of about 75-80 excellent oxygen saturation number words no secondary complications stable hemoglobin is stable renal function diminishing tenderness although the tenderness still does persist as does the nausea Critical Care Time (minutes): 35 Physical Exam Vital Signs: Vital Signs: Last Vital Signs Temp 98.0 F 05/26/22 03:39 Pulse 77 05/26/22 05:58 Resp 15 05/26/22 05:58 BP 128/51 L 05/26/22 05:58 Pulse Ox 94 05/26/22 05:58 O2 Del Method 05/26/22 05:58 BMI result Body Mass Index 32.2 Vital signs of perfectly stable with a diminishing heart rate now down to 75 in sinus and afebrile Abdomen still diffusely tender but definitely softer with good bowel sounds Chest because the equally no adventitious sounds Cardiac exam by bedside echo showing normal LV and RV function and no primary valve or pericardial disease Skin is intact no acrocyanosis Objective Data Labs CBC & Chem 7: 05/26/22 05:10 05/26/22 05:10 Labs: Laboratory Results - last 24 hr 05/25/22 05/25/22 05/25/22 07:57 12:07 16:09 WBC RBC Hgb Hct MCV MCH MCHC RDW Plt Count MPV Immature Gran % (Auto) Neut % (Auto) Lymph % (Auto) [place] % (Auto) Eos % (Auto) Baso % (Auto) Lymph # (Auto) [place] # (Auto) Eos # (Auto) Baso # (Auto) Abs Immat Gran (auto) Absolute Neuts (auto) Absolute Nucleated RBC Nucleated RBC % (auto) Smear Tech's Comments Sodium Potassium Chloride Carbon Dioxide Anion Gap BUN Creatinine Estim Creat Clear Calc Estimated GFR POC Glucose 109 112 121 H Random Glucose Calcium Phosphorus Magnesium Total Bilirubin AST ALT Alkaline Phosphatase Total Protein Albumin Triglycerides Lipase 05/25/22 05/25/22 05/26/22 20:00 23:32 03:08 WBC RBC Hgb Hct MCV MCH MCHC RDW Plt Count MPV Immature Gran % (Auto) Neut % (Auto) Lymph % (Auto) [place] % (Auto) Eos % (Auto) Baso % (Auto) Lymph # (Auto) [place] # (Auto) Eos # (Auto) Baso # (Auto) Abs Immat Gran (auto) Absolute Neuts (auto) Absolute Nucleated RBC Nucleated RBC % (auto) Smear Tech's Comments Sodium Potassium Chloride Carbon Dioxide Anion Gap BUN Creatinine Estim Creat Clear Calc Estimated GFR POC Glucose 112 92 109 Random Glucose Calcium Phosphorus Magnesium Total Bilirubin AST ALT Alkaline Phosphatase Total Protein Albumin Triglycerides Lipase 05/26/22 05/26/22 05:10 05:10 WBC 11.1 H RBC 4.32 L Hgb 11.3 L Hct 32.8 L MCV 75.9 L MCH 26.2 L MCHC 34.5 RDW 13.4 Plt Count 263 MPV 9.2 L Immature Gran % (Auto) 2.4 H Neut % (Auto) 62.5 Lymph % (Auto) 17.4 L [place] % (Auto) 13.8 H Eos % (Auto) 3.5 Baso % (Auto) 0.4 Lymph # (Auto) 1.9 [place] # (Auto) 1.5 H Eos # (Auto) 0.4 Baso # (Auto) 0.0 Abs Immat Gran (auto) 0.27 H Absolute Neuts (auto) 7.0 Absolute Nucleated RBC 0.000 Nucleated RBC % (auto) 0.0 Smear Tech's Comments VERIFIED Sodium 133 L Potassium 3.7 Chloride 101 Carbon Dioxide 20 L Anion Gap 16 BUN 5 L Creatinine 0.79 Estim Creat Clear Calc 145.7 Estimated GFR > 60 POC Glucose Random Glucose 114 Calcium 8.6 Phosphorus 3.5 Magnesium 2.1 Total Bilirubin 0.7 AST 37 ALT 34 Alkaline Phosphatase 125 H D Total Protein 6.3 L Albumin 3.5 Triglycerides 490 Lipase 796 H Microbiology Microbiology Results: Microbiology 05/23/22 16:21 Urine Catheterized - Jung Catheter Urine Culture - Final No growth. 05/22/22 21:12 Blood - Venous Blood Culture - Preliminary No growth after 48 hours. 05/22/22 21:12 Blood - Venous Blood Culture - Preliminary No growth after 48 hours. Progress Note: A&P Assessment and plan (1) Hypertriglyceridemia: Status: Acute (2) Acute pancreatitis: Status: Acute (3) Inflammatory bowel diseases (IBD): Status: Acute (4) Presence of ileostomy: Status: Acute (5) Lumbar radiculopathy, chronic: Status: Acute (6) HLD (hyperlipidemia): Status: Acute (7) Obesity: Status: Acute (8) Colitis: Status: Acute (9) Zinc deficiency: Status: Acute (10) B12 deficiency: Status: Acute (11) Vitamin D deficiency: Status: Acute (12) Presence of IVC filter: Status: Acute (13) GERD without esophagitis: Status: Acute (14) Hypertriglyceridemia: Status: Acute Plan So the insulin drip can now be discontinued and he will remain on a combination of fenofibrate and a toward the statin and I just initiated yesterday low-dose of niacin and that can be titrated up to the next level currently 250 VAC ago up to 500 and so on as needed the no to further depress the triglyceride level and I would recommend strongly that he modify his habits at least starting with a diabetic diet diet at this point [place] that would reduce is a fat and carbohydrate intake Quality Stroke Does the patient have a stroke diagnosis?: No VTE Prior VTE?: No VTE Risk Level:: Medical - moderate - high VTE Device Contraindication: Treatment Not Indicated VTE Drug Contraindication: N/A - Med Ordered
[2022-05-26 06:37] LABS: Glucose, Whole Blood 93 mg/dL (60-115)
[2022-05-26] MEDS: Fenofibrate 160 MG TABLET PO (07:57)
[2022-05-26] MEDS: Atorvastatin Calcium 80 MG TABLET PO (07:57)
[2022-05-26 08:00] LABS: Glucose, Whole Blood 112 mg/dL (60-115)
--- NOTE | 2022-05-26 08:40 | P.PNGS_ITS ---
Subjective Subjective Date of Service: 05/26/22 Interval history: has pain on left side but says this is better getting out of bed to recliner Physical Exam Vital Signs: Vital Signs: Last Vital Signs Temp 98.7 F 05/26/22 08:00 Pulse 86 05/26/22 08:00 Resp 24 H 05/26/22 08:00 BP 140/91 H 05/26/22 08:00 Pulse Ox 100 05/26/22 08:00 O2 Del Method 05/26/22 08:00 BMI result Body Mass Index 32.2 Const: General: comfortable and no acute distress Resp: Effort & Inspection: normal respiratory effort Cardio: Rate: regular rate GI: Other: nondistended, tender on left abdomen Palpation (GI): Soft to palpation, not firm and no guarding Objective Data Active Medications Atorvastatin Calcium (Atorvastatin Calcium 80 Mg Tablet) 80 mg PO DAILY [facility] Last Admin: 05/26/22 07:57 Dose: 80 mg Documented By: CONSUELO Dextrose (Dextrose 50 % 25 Gm/50 Ml Syringe) 25 gm IVPUSH Q30M PRN PRN Reason: Nursing Actions in Insulin Infusion Protocol Enoxaparin Sodium (Enoxaparin Sodium 40 Mg/0.4 Ml Syringe) 40 mg SUBCUT Q24H [facility] Last Admin: 05/25/22 19:17 Dose: 40 mg Documented By: SONJA Fenofibrate (Fenofibrate 160 Mg Tablet) 160 mg PO DAILY [facility] Last Admin: 05/26/22 07:57 Dose: 160 mg Documented By: CONSUELO Hydromorphone HCl (Hydromorphone Hcl 2 Mg/Ml Vial) 1 mg IVPUSH Q2H PRN; Protocol PRN Reason: Pain, Severe (Pain Scale 7-10) Last Admin: 05/26/22 03:02 Dose: 1 mg Documented By: JENS Potassium Chloride/Dextrose/Sod Cl (Kcl 20 Meq In 5% Dex/0.9% Sod) 20 meq in 1,000 mls @ 75 mls/hr IVCONT .[id number] [facility] Last Infusion: 05/26/22 07:05 Dose: 75 mls/hr Documented By: CONSUELO Ketorolac Tromethamine (Ketorolac Tromethamine 15 Mg/Ml Vial) 15 mg IVPUSH Q6H PRN PRN Reason: Pain, Moderate (Pain Scale 4-6 Last Admin: 05/26/22 05:07 Dose: 15 mg Documented By: JENS Niacin (Niacin Er 250 Mg Tablet.Er) 250 mg PO DAILY [facility] Last Admin: 05/26/22 07:57 Dose: 250 mg Documented By: CONSUELO Ondansetron HCl (Ondansetron Hcl 4 Mg/2 Ml Vial) 4 mg IVPUSH Q8H PRN PRN Reason: Nausea and Vomiting Last Admin: 05/24/22 15:43 Dose: 4 mg Documented By: HUGO Pantoprazole Sodium (Pantoprazole Sodium 40 Mg/10 Ml Vial) 40 mg IVPUSH DAILY@0630 [facility] Last Admin: 05/26/22 05:07 Dose: 40 mg Documented By: JENS Pharmacy Consult (Consult Rx Perform Med Rec) 1 each MISCELLANE ONCE PRN PRN Reason: Consult order Labs CBC & Chem 7: 05/26/22 05:10 05/26/22 05:10 Labs: Laboratory Results - last 24 hr 05/23/22 05/25/22 05/25/22 22:00 12:07 16:09 MCV MCH MCHC RDW Plt Count MPV Immature Gran % (Auto) Neut % (Auto) Lymph % (Auto) [place] % (Auto) Eos % (Auto) Baso % (Auto) Lymph # (Auto) [place] # (Auto) Eos # (Auto) Baso # (Auto) Abs Immat Gran (auto) Absolute Neuts (auto) Absolute Nucleated RBC Nucleated RBC % (auto) Smear Tech's Comments Anion Gap Estim Creat Clear Calc Estimated GFR POC Glucose 93 112 121 H Random Glucose Calcium Phosphorus Magnesium Total Bilirubin AST ALT Alkaline Phosphatase Total Protein Albumin Triglycerides Lipase 05/25/22 05/25/22 05/26/22 20:00 23:32 03:08 MCV MCH MCHC RDW Plt Count MPV Immature Gran % (Auto) Neut % (Auto) Lymph % (Auto) [place] % (Auto) Eos % (Auto) Baso % (Auto) Lymph # (Auto) [place] # (Auto) Eos # (Auto) Baso # (Auto) Abs Immat Gran (auto) Absolute Neuts (auto) Absolute Nucleated RBC Nucleated RBC % (auto) Smear Tech's Comments Anion Gap Estim Creat Clear Calc Estimated GFR POC Glucose 112 92 109 Random Glucose Calcium Phosphorus Magnesium Total Bilirubin AST ALT Alkaline Phosphatase Total Protein Albumin Triglycerides Lipase 05/26/22 05/26/22 05/26/22 05:10 05:10 07:56 MCV 75.9 L MCH 26.2 L MCHC 34.5 RDW 13.4 Plt Count 263 MPV 9.2 L Immature Gran % (Auto) 2.4 H Neut % (Auto) 62.5 Lymph % (Auto) 17.4 L [place] % (Auto) 13.8 H Eos % (Auto) 3.5 Baso % (Auto) 0.4 Lymph # (Auto) 1.9 [place] # (Auto) 1.5 H Eos # (Auto) 0.4 Baso # (Auto) 0.0 Abs Immat Gran (auto) 0.27 H Absolute Neuts (auto) 7.0 Absolute Nucleated RBC 0.000 Nucleated RBC % (auto) 0.0 Smear Tech's Comments VERIFIED Anion Gap 16 Estim Creat Clear Calc 145.7 Estimated GFR > 60 POC Glucose 112 Random Glucose 114 Calcium 8.6 Phosphorus 3.5 Magnesium 2.1 Total Bilirubin 0.7 AST 37 ALT 34 Alkaline Phosphatase 125 H D Total Protein 6.3 L Albumin 3.5 Triglycerides 490 Lipase 796 H Microbiology Microbiology Results: Microbiology 05/23/22 16:21 Urine Culture - Final Urine Catheterized - Jung Catheter No growth. Procedures Date of Service Date of Service: 05/26/22 Progress Note: A&P Assessment and plan (1) Acute pancreatitis: Status: Acute Assessment and Plan: still with pain but steadily improving ok to have clear liquids aggressive statin tx for hypertrigylceridemia pain mgt supportive care doing better Time Spent With Patient Time: Total time spent is greater than 50% in coordination of care (as documented) at patient's floor/unit and/or counseling patient: Quality Stroke Does the patient have a stroke diagnosis?: No VTE Prior VTE?: No VTE Risk Level:: Medical - moderate - high VTE Device Contraindication: Treatment Not Indicated VTE Drug Contraindication: N/A - Med Ordered
--- NOTE | 2022-05-26 09:34 | PC.NURSE ---
Pt transferred to [facility] via wheelchair, report given to receiving TAI Lopez, belongings and chart sent w/pt, pt aware of and in agreement w/plan, no further questions at this time.
[2022-05-26 11:43] LABS: Glucose, Whole Blood 116 mg/dL (60-115)
[2022-05-26] MEDS: KCl 20 mEq in 5% Dex/0.9% Sod 20 MEQ/1,000 ML IV.SOLN 75 MEQ IVCONT (12:13)
[2022-05-26 16:15] LABS: Glucose, Whole Blood 122 mg/dL (60-115)
[2022-05-26 20:14] LABS: Glucose, Whole Blood 120 mg/dL (60-115)
[2022-05-26] MEDS: Enoxaparin Sodium 40 MG/0.4 ML SYRINGE SUBCUT (21:34)
[2022-05-26] MEDS: ondansetron HCL 4 MG/2 ML VIAL IVPUSH (23:45)
[2022-05-27 01:31] LABS: Glucose, Whole Blood 130 mg/dL (60-115)
[2022-05-27 04:00] VITALS: BP 139/89; PULSE 80; RESP 20; TEMP 36.8; O2SAT 97
[2022-05-27 05:39] LABS: Glucose, Whole Blood 117 mg/dL (60-115)
[2022-05-27] MEDS: Pantoprazole Sodium 40 MG/10 ML VIAL IVPUSH (05:53)
[2022-05-27 06:00] VITALS: BMI 31.1
[2022-05-27 07:41] VITALS: BP 146/87; PULSE 77; RESP 19; TEMP 37.2; O2SAT 96
[2022-05-27] MEDS: Fenofibrate 160 MG TABLET PO (08:02)
[2022-05-27] MEDS: Atorvastatin Calcium 80 MG TABLET PO (08:03)
[2022-05-27] MEDS: HYDROmorphone HCl 2 MG/ML VIAL 1 MG IVPUSH ×3 (08:03→19:54)
[2022-05-27] MEDS: ondansetron HCL 4 MG/2 ML VIAL IVPUSH ×2 (08:03→19:54)
[2022-05-27 08:12] LABS: Glucose, Whole Blood 116 mg/dL (60-115)
--- NOTE | 2022-05-27 09:36 | PM.PNGS ---
Subjective Subjective Date of Service: 05/27/22 Interval history: says pain continues to improve tolerating diet [facility] Physical Exam Vital Signs: Vital Signs: Last Vital Signs Temp 98.9 F 05/27/22 07:41 Pulse 77 05/27/22 07:41 Resp 19 05/27/22 07:41 BP 146/87 H 05/27/22 07:41 Pulse Ox 96 05/27/22 07:41 O2 Del Method 05/27/22 07:41 BMI result Body Mass Index 31.1 Const: General: comfortable and no acute distress Resp: Effort & Inspection: normal respiratory effort Cardio: Rate: regular rate GI: Other: mild tenderness in the left upper quadrant Palpation (GI): Soft to palpation and not firm Objective Data Active Medications Atorvastatin Calcium (Atorvastatin Calcium 80 Mg Tablet) 80 mg PO DAILY [facility] Last Admin: 05/27/22 08:03 Dose: 80 mg Documented By: ALPA Dextrose (Dextrose 50 % 25 Gm/50 Ml Syringe) 25 gm IVPUSH Q30M PRN PRN Reason: Nursing Actions in Insulin Infusion Protocol Enoxaparin Sodium (Enoxaparin Sodium 40 Mg/0.4 Ml Syringe) 40 mg SUBCUT Q24H [facility] Last Admin: 05/26/22 21:34 Dose: 40 mg Documented By: EMMA Fenofibrate (Fenofibrate 160 Mg Tablet) 160 mg PO DAILY [facility] Last Admin: 05/27/22 08:02 Dose: 160 mg Documented By: ALPA Hydromorphone HCl (Hydromorphone Hcl 2 Mg/Ml Vial) 1 mg IVPUSH Q2H PRN; Protocol PRN Reason: Pain, Severe (Pain Scale 7-10) Last Admin: 05/27/22 08:03 Dose: 1 mg Documented By: ALPA Ketorolac Tromethamine (Ketorolac Tromethamine 15 Mg/Ml Vial) 15 mg IVPUSH Q6H PRN PRN Reason: Pain, Moderate (Pain Scale 4-6 Last Admin: 05/26/22 05:07 Dose: 15 mg Documented By: JENS Niacin (Niacin Er 250 Mg Tablet.Er) 250 mg PO DAILY [facility] Last Admin: 05/27/22 08:02 Dose: 250 mg Documented By: ALPA Ondansetron HCl (Ondansetron Hcl 4 Mg/2 Ml Vial) 4 mg IVPUSH Q8H PRN PRN Reason: Nausea and Vomiting Last Admin: 05/27/22 08:03 Dose: 4 mg Documented By: ALPA Pantoprazole Sodium (Pantoprazole Sodium 40 Mg/10 Ml Vial) 40 mg IVPUSH DAILY@0630 [facility] Last Admin: 05/27/22 05:53 Dose: 40 mg Documented By: SVITLANA Pharmacy Consult (Consult Rx Perform Med Rec) 1 each MISCELLANE ONCE PRN PRN Reason: Consult order Labs CBC & Chem 7: 05/26/22 05:10 05/26/22 05:10 Labs: Laboratory Results - last 24 hr 05/26/22 05/26/22 05/26/22 11:24 15:35 20:08 POC Glucose 116 H 122 H 120 H 05/27/22 05/27/22 05/27/22 01:27 05:32 07:47 POC Glucose 130 H 117 H 116 H Procedures Date of Service Date of Service: 05/27/22 Progress Note: A&P Assessment and plan (1) Acute pancreatitis: Status: Acute Assessment and Plan: much improved abdomen soft tolerating diet etiology is hypertriglyceridemia (2) Hypertriglyceridemia: Status: Acute Assessment and Plan: control triglyceride levels aggressive statin treatment Time Spent With Patient Time: Total time spent is greater than 50% in coordination of care (as documented) at patient's floor/unit and/or counseling patient: Quality Stroke Does the patient have a stroke diagnosis?: No VTE Prior VTE?: No VTE Risk Level:: Medical - moderate - high VTE Device Contraindication: Treatment Not Indicated VTE Drug Contraindication: N/A - Med Ordered
[2022-05-27 10:16] LABS: Triglycerides 379 mg/dL
[2022-05-27 10:39] LABS: Lipase 1445 U/L (8-78)
[2022-05-27 12:00] VITALS: BP 146/82; PULSE 81; RESP 17; TEMP 36.6; O2SAT 96
[2022-05-27 13:00] LABS: Glucose, Whole Blood 126 mg/dL (60-115)
[2022-05-27 15:14] VITALS: BP 139/87; PULSE 77; RESP 20; TEMP 35.8; O2SAT 98
[2022-05-27 15:44] LABS: Glucose, Whole Blood 121 mg/dL (60-115)
--- NOTE | 2022-05-27 15:53 | HO.PM.IMPN ---
Subjective Subjective Date of Service: 05/28/22 Interval History: f/u on acute pancreatitis d/t hypertriglyceridemia interval history: pain is better,TG is down but lipase is up Review of Systems no nausea pain Physical Exam Vital Signs: Vital Signs: Last Vital Signs Temp 96.5 F L 05/27/22 15:14 Pulse 77 05/27/22 15:14 Resp 20 05/27/22 15:14 BP 139/87 05/27/22 15:14 Pulse Ox 98 05/27/22 15:14 O2 Del Method 05/27/22 15:14 O2 Flow Rate 98 05/27/22 15:14 BMI result Body Mass Index 31.1 Const: Other: General: AO X 3, no acute distress Resp: CTA bilateral CVS: S1,S2,RRR GI: +BS, NT, no distention Skin: mild tenderness Neuro: motor grossly intact Psych: appropriate affect Objective Data Active Medications Atorvastatin Calcium (Atorvastatin Calcium 80 Mg Tablet) 80 mg PO DAILY [facility] Last Admin: 05/27/22 08:03 Dose: 80 mg Documented By: ALPA Dextrose (Dextrose 50 % 25 Gm/50 Ml Syringe) 25 gm IVPUSH Q30M PRN PRN Reason: Nursing Actions in Insulin Infusion Protocol Enoxaparin Sodium (Enoxaparin Sodium 40 Mg/0.4 Ml Syringe) 40 mg SUBCUT Q24H [facility] Last Admin: 05/26/22 21:34 Dose: 40 mg Documented By: EMMA Fenofibrate (Fenofibrate 160 Mg Tablet) 160 mg PO DAILY [facility] Last Admin: 05/27/22 08:02 Dose: 160 mg Documented By: ALPA Hydromorphone HCl (Hydromorphone Hcl 2 Mg/Ml Vial) 1 mg IVPUSH Q2H PRN; Protocol PRN Reason: Pain, Severe (Pain Scale 7-10) Last Admin: 05/27/22 12:56 Dose: 1 mg Documented By: ALPA Ketorolac Tromethamine (Ketorolac Tromethamine 15 Mg/Ml Vial) 15 mg IVPUSH Q6H PRN PRN Reason: Pain, Moderate (Pain Scale 4-6 Last Admin: 05/26/22 05:07 Dose: 15 mg Documented By: JENS Niacin (Niacin Er 250 Mg Tablet.Er) 250 mg PO DAILY [facility] Last Admin: 05/27/22 08:02 Dose: 250 mg Documented By: ALPA Ondansetron HCl (Ondansetron Hcl 4 Mg/2 Ml Vial) 4 mg IVPUSH Q8H PRN PRN Reason: Nausea and Vomiting Last Admin: 05/27/22 08:03 Dose: 4 mg Documented By: ALPA Pantoprazole Sodium (Pantoprazole Sodium 40 Mg/10 Ml Vial) 40 mg IVPUSH DAILY@0630 [facility] Last Admin: 05/27/22 05:53 Dose: 40 mg Documented By: SVITLANA Pharmacy Consult (Consult Rx Perform Med Rec) 1 each MISCELLANE ONCE PRN PRN Reason: Consult order Labs CBC & Chem 7: 05/26/22 05:10 05/26/22 05:10 Labs: Laboratory Results - last 24 hr 05/26/22 05/26/22 05/27/22 15:35 20:08 01:27 POC Glucose 122 H 120 H 130 H Triglycerides Lipase 05/27/22 05/27/22 05/27/22 05:32 07:47 09:32 POC Glucose 117 H 116 H Triglycerides 379 Lipase 1445 H 05/27/22 05/27/22 12:42 15:10 POC Glucose 126 H 121 H Triglycerides Lipase Assessment and Plan (1) Acute pancreatitis: Status: Acute Plan A 42 years old male with PMH of ulcerative colitis post colectomy on colostomy, acute pancreatitis,, HLD, obesity along others who presents to the hospital complaining of abdominal pain for the last 2 days. Acute pancreatitis d/t hypertriglyceridemia -lipase is increasin but Trigliceride is going down -continue present diet -diladid for pain HLD --Statin, Fenofibrate continue, niacin GERD Continue omeprazole DVT prophylaxis Lovenox Patient will need overnight hospital stay for insulin drip to treat hypertriglyceridemia. Quality Stroke Does the patient have a stroke diagnosis?: No VTE Prior VTE?: No VTE Risk Level:: Medical - moderate - high VTE Device Contraindication: Treatment Not Indicated VTE Drug Contraindication: N/A - Med Ordered
[2022-05-27 19:09] LABS: Glucose, Whole Blood 95 mg/dL (60-115)
[2022-05-27 19:12] VITALS: BP 144/87; PULSE 73; RESP 18; TEMP 36.7; O2SAT 98
[2022-05-27] MEDS: Enoxaparin Sodium 40 MG/0.4 ML SYRINGE SUBCUT (19:54)
[2022-05-27 23:35] VITALS: BP 143/83; PULSE 77; RESP 18; TEMP 36.6; O2SAT 96
[2022-05-28 03:07] VITALS: BP 146/91; PULSE 74; RESP 20; TEMP 37.3; O2SAT 96
[2022-05-28] MEDS: Ketorolac Tromethamine 15 MG/ML VIAL IVPUSH (03:27)
[2022-05-28 04:22] LABS: Glucose, Whole Blood 123 mg/dL (60-115)
[2022-05-28] MEDS: Pantoprazole Sodium 40 MG/10 ML VIAL IVPUSH (06:04)
[2022-05-28] MEDS: oxyCODONE HCl Immed Release 5 MG TABLET 10 MG PO ×2 (06:06→15:36)
[2022-05-28 07:24] VITALS: BP 130/86; PULSE 76; RESP 20; TEMP 36.6; O2SAT 96
[2022-05-28 07:48] LABS: Glucose, Whole Blood 112 mg/dL (60-115)
[2022-05-28] MEDS: Atorvastatin Calcium 80 MG TABLET PO (08:49)
[2022-05-28] MEDS: Fenofibrate 160 MG TABLET PO (08:49)
--- NOTE | 2022-05-28 08:54 | HO.PM.IMPN ---
Subjective Subjective Date of Service: 05/28/22 Interval History: f/u on acute pancreatitis d/t hypertriglyceridemia interval history: little to no pain, TG and lipase pending Review of Systems no nausea pain Physical Exam Vital Signs: Vital Signs: Last Vital Signs Temp 97.8 F 05/28/22 07:24 Pulse 76 05/28/22 07:24 Resp 20 05/28/22 07:24 BP 130/86 05/28/22 07:24 Pulse Ox 96 05/28/22 07:24 O2 Del Method 05/28/22 07:24 O2 Flow Rate 98 05/27/22 15:14 BMI result Body Mass Index 31.1 Const: Other: General: AO X 3, no acute distress Resp: CTA bilateral CVS: S1,S2,RRR GI: +BS, NT, no distention Skin: mild tenderness Neuro: motor grossly intact Psych: appropriate affect Objective Data Active Medications Atorvastatin Calcium (Atorvastatin Calcium 80 Mg Tablet) 80 mg PO DAILY [facility] Last Admin: 05/28/22 08:49 Dose: 80 mg Documented By: ALPA Dextrose (Dextrose 50 % 25 Gm/50 Ml Syringe) 25 gm IVPUSH Q30M PRN PRN Reason: Nursing Actions in Insulin Infusion Protocol Enoxaparin Sodium (Enoxaparin Sodium 40 Mg/0.4 Ml Syringe) 40 mg SUBCUT Q24H [facility] Last Admin: 05/27/22 19:54 Dose: 40 mg Documented By: MIRANDA Fenofibrate (Fenofibrate 160 Mg Tablet) 160 mg PO DAILY [facility] Last Admin: 05/28/22 08:49 Dose: 160 mg Documented By: ALPA Hydromorphone HCl (Hydromorphone Hcl 2 Mg/Ml Vial) 1 mg IVPUSH Q2H PRN; Protocol PRN Reason: Pain, Severe (Pain Scale 7-10) Last Admin: 05/27/22 19:54 Dose: 1 mg Documented By: MIRANDA Ketorolac Tromethamine (Ketorolac Tromethamine 15 Mg/Ml Vial) 15 mg IVPUSH Q6H PRN PRN Reason: Pain, Moderate (Pain Scale 4-6 Last Admin: 05/28/22 03:27 Dose: 15 mg Documented By: MIRANDA Niacin (Niacin Er 250 Mg Tablet.Er) 250 mg PO DAILY [facility] Last Admin: 05/28/22 08:49 Dose: 250 mg Documented By: ALPA Ondansetron HCl (Ondansetron Hcl 4 Mg/2 Ml Vial) 4 mg IVPUSH Q8H PRN PRN Reason: Nausea and Vomiting Last Admin: 05/27/22 19:54 Dose: 4 mg Documented By: MIRANDA Pantoprazole Sodium (Pantoprazole Sodium 40 Mg/10 Ml Vial) 40 mg IVPUSH DAILY@0630 [facility] Last Admin: 05/28/22 06:04 Dose: 40 mg Documented By: MIRANDA Pharmacy Consult (Consult Rx Perform Med Rec) 1 each MISCELLANE ONCE PRN PRN Reason: Consult order Labs CBC & Chem 7: 05/26/22 05:10 05/26/22 05:10 Labs: Laboratory Results - last 24 hr 05/27/22 05/27/22 05/27/22 09:32 12:42 15:10 POC Glucose 126 H 121 H Triglycerides 379 Lipase 1445 H 05/27/22 05/28/22 05/28/22 19:01 04:15 07:21 POC Glucose 95 123 H 112 Triglycerides Lipase Microbiology Microbiology Results: Microbiology 05/22/22 21:12 Blood Culture - Final Blood - Venous No growth after 5 days. 05/22/22 21:12 Blood Culture - Final Blood - Venous No growth after 5 days. Assessment and Plan (1) Acute pancreatitis: Status: Acute Plan A 42 years old male with PMH of ulcerative colitis post colectomy on colostomy, acute pancreatitis,, HLD, obesity along others who presents to the hospital complaining of abdominal pain for the last 2 days. Acute pancreatitis d/t hypertriglyceridemia -lipase is increasin but Trigliceride is going down -continue present diet -diladid for pain HLD --Statin, Fenofibrate continue, niacin to 500 GERD Continue omeprazole DVT prophylaxis Lovenox Patient will need overnight hospital stay for insulin drip to treat hypertriglyceridemia. Quality Stroke Does the patient have a stroke diagnosis?: No VTE Prior VTE?: No VTE Risk Level:: Medical - moderate - high VTE Device Contraindication: Treatment Not Indicated VTE Drug Contraindication: N/A - Med Ordered
--- NOTE | 2022-05-28 10:10 | PM.PNGS ---
Subjective Subjective Date of Service: 05/28/22 Interval history: feels well abdominal pain much improved tolerating diet Physical Exam Vital Signs: Vital Signs: Last Vital Signs Temp 97.8 F 05/28/22 07:24 Pulse 76 05/28/22 07:24 Resp 20 05/28/22 07:24 BP 130/86 05/28/22 07:24 Pulse Ox 96 05/28/22 07:24 O2 Del Method 05/28/22 07:24 O2 Flow Rate 98 05/27/22 15:14 BMI result Body Mass Index 31.1 Const: General: comfortable and no acute distress Resp: Effort & Inspection: normal respiratory effort Cardio: Rate: regular rate GI: Other: mild tenderness on the left upper quadrant Palpation (GI): Soft to palpation, not firm and no guarding Objective Data Active Medications Atorvastatin Calcium (Atorvastatin Calcium 80 Mg Tablet) 80 mg PO DAILY [facility] Last Admin: 05/28/22 08:49 Dose: 80 mg Documented By: ALPA Dextrose (Dextrose 50 % 25 Gm/50 Ml Syringe) 25 gm IVPUSH Q30M PRN PRN Reason: Nursing Actions in Insulin Infusion Protocol Enoxaparin Sodium (Enoxaparin Sodium 40 Mg/0.4 Ml Syringe) 40 mg SUBCUT Q24H [facility] Last Admin: 05/27/22 19:54 Dose: 40 mg Documented By: MIRANDA Fenofibrate (Fenofibrate 160 Mg Tablet) 160 mg PO DAILY [facility] Last Admin: 05/28/22 08:49 Dose: 160 mg Documented By: ALPA Hydromorphone HCl (Hydromorphone Hcl 2 Mg/Ml Vial) 1 mg IVPUSH Q2H PRN; Protocol PRN Reason: Pain, Severe (Pain Scale 7-10) Last Admin: 05/27/22 19:54 Dose: 1 mg Documented By: MIRANDA Ketorolac Tromethamine (Ketorolac Tromethamine 15 Mg/Ml Vial) 15 mg IVPUSH Q6H PRN PRN Reason: Pain, Moderate (Pain Scale 4-6 Last Admin: 05/28/22 03:27 Dose: 15 mg Documented By: MIRANDA Niacin (Niacin Er 250 Mg Tablet.Er) 250 mg PO DAILY [facility] Last Admin: 05/28/22 08:49 Dose: 250 mg Documented By: ALPA Ondansetron HCl (Ondansetron Hcl 4 Mg/2 Ml Vial) 4 mg IVPUSH Q8H PRN PRN Reason: Nausea and Vomiting Last Admin: 05/27/22 19:54 Dose: 4 mg Documented By: MIRANDA Pantoprazole Sodium (Pantoprazole Sodium 40 Mg/10 Ml Vial) 40 mg IVPUSH DAILY@0630 [facility] Last Admin: 05/28/22 06:04 Dose: 40 mg Documented By: MIRANDA Pharmacy Consult (Consult Rx Perform Med Rec) 1 each MISCELLANE ONCE PRN PRN Reason: Consult order Labs CBC & Chem 7: 05/26/22 05:10 05/26/22 05:10 Labs: Laboratory Results - last 24 hr 05/27/22 05/27/22 05/27/22 09:32 12:42 15:10 POC Glucose 126 H 121 H Triglycerides 379 Lipase 1445 H 05/27/22 05/28/22 05/28/22 19:01 04:15 07:21 POC Glucose 95 123 H 112 Triglycerides Lipase Microbiology Microbiology Results: Microbiology 05/22/22 21:12 Blood Culture - Final Blood - Venous No growth after 5 days. 05/22/22 21:12 Blood Culture - Final Blood - Venous No growth after 5 days. Procedures Date of Service Date of Service: 05/28/22 Progress Note: A&P Assessment and plan (1) Acute pancreatitis: Status: Acute Assessment and Plan: from hypertriglyceridemia much improved on diet he states he is probably going home today management as per hospitalist- control triglyceride level Time Spent With Patient Time: Total time spent is greater than 50% in coordination of care (as documented) at patient's floor/unit and/or counseling patient: Quality Stroke Does the patient have a stroke diagnosis?: No VTE Prior VTE?: No VTE Risk Level:: Medical - moderate - high VTE Device Contraindication: Treatment Not Indicated VTE Drug Contraindication: N/A - Med Ordered
[2022-05-28 11:11] LABS: Triglycerides 334 mg/dL
[2022-05-28 11:28] LABS: Lipase 1866 U/L (8-78)
[2022-05-28 11:50] LABS: Glucose, Whole Blood 131 mg/dL (60-115)
[2022-05-28 12:00] VITALS: BP 130/79; PULSE 84; RESP 18; TEMP 36.7; O2SAT 96
[2022-05-28 15:29] VITALS: BP 149/77; PULSE 83; RESP 18; TEMP 36.4; O2SAT 95
[2022-05-28 16:42] LABS: Glucose, Whole Blood 119 mg/dL (60-115)
[2022-05-28 19:30] VITALS: BP 131/87; PULSE 82; RESP 18; TEMP 36.1; O2SAT 97
[2022-05-28 20:09] LABS: Glucose, Whole Blood 129 mg/dL (60-115)
[2022-05-28] MEDS: Enoxaparin Sodium 40 MG/0.4 ML SYRINGE SUBCUT (20:24)
[2022-05-28 23:29] VITALS: BP 129/84; PULSE 76; RESP 18; TEMP 36.5; O2SAT 96
[2022-05-29 03:24] LABS: Glucose, Whole Blood 119 mg/dL (60-115)
[2022-05-29 03:32] VITALS: BP 130/81; PULSE 77; RESP 18; TEMP 36.9; O2SAT 97
--- NOTE | 2022-05-29 04:53 | PC.NURSE ---
about 3 am pt c/o tingling in arms , legs and strange feeling in his mouth taste like dry cotton, vss md notified no other symptoms noted, will monitor.
[2022-05-29] MEDS: Pantoprazole Sodium 40 MG/10 ML VIAL IVPUSH (06:01)
[2022-05-29 07:42] LABS: Glucose, Whole Blood 112 mg/dL (60-115)
[2022-05-29 08:00] VITALS: BP 132/87; PULSE 87; RESP 17; TEMP 37.2; O2SAT 96
[2022-05-29] MEDS: oxyCODONE HCl Immed Release 5 MG TABLET 10 MG PO (08:22)
[2022-05-29] MEDS: Fenofibrate 160 MG TABLET PO (08:23)
[2022-05-29] MEDS: Atorvastatin Calcium 80 MG TABLET PO (08:23)
[2022-05-29 11:13] LABS: Glucose, Whole Blood 119 mg/dL (60-115)
--- NOTE | 2022-05-29 11:18 | P.PNIM_ITS ---
Subjective Subjective Date of Service: 05/29/22 Interval History: Pain is well controlled. Lipase is better Review of Systems no nausea/vomitting abdomen Physical Exam Vital Signs: Vital Signs: Last Vital Signs Temp 98.9 F 05/29/22 08:00 Pulse 87 05/29/22 08:00 Resp 17 05/29/22 08:00 BP 132/87 05/29/22 08:00 Pulse Ox 96 05/29/22 08:00 O2 Del Method 05/29/22 08:00 O2 Flow Rate 98 05/27/22 15:14 BMI result Body Mass Index 31.1 Objective Data Active Medications Atorvastatin Calcium (Atorvastatin Calcium 80 Mg Tablet) 80 mg PO DAILY [facility] Last Admin: 05/29/22 08:23 Dose: 80 mg Documented By: ROQUE Dextrose (Dextrose 50 % 25 Gm/50 Ml Syringe) 25 gm IVPUSH Q30M PRN PRN Reason: Nursing Actions in Insulin Infusion Protocol Enoxaparin Sodium (Enoxaparin Sodium 40 Mg/0.4 Ml Syringe) 40 mg SUBCUT Q24H [facility] Last Admin: 05/28/22 20:24 Dose: 40 mg Documented By: MIRANDA Fenofibrate (Fenofibrate 160 Mg Tablet) 160 mg PO DAILY [facility] Last Admin: 05/29/22 08:23 Dose: 160 mg Documented By: ROQUE Ketorolac Tromethamine (Ketorolac Tromethamine 15 Mg/Ml Vial) 15 mg IVPUSH Q6H PRN PRN Reason: Pain, Moderate (Pain Scale 4-6 Last Admin: 05/28/22 03:27 Dose: 15 mg Documented By: MIRANDA Niacin (Niacin Er 250 Mg Tablet.Er) 250 mg PO DAILY [facility] Last Admin: 05/29/22 08:23 Dose: 250 mg Documented By: ROQUE Ondansetron HCl (Ondansetron Hcl 4 Mg/2 Ml Vial) 4 mg IVPUSH Q8H PRN PRN Reason: Nausea and Vomiting Last Admin: 05/27/22 19:54 Dose: 4 mg Documented By: MIRANDA Oxycodone HCl (Oxycodone Hcl Immed Release 5 Mg Tablet) 10 mg PO Q6H PRN PRN Reason: Pain, Severe (Pain Scale 7-10) Last Admin: 05/29/22 08:22 Dose: 10 mg Documented By: ROQUE Pharmacy Consult (Consult Rx Perform Med Rec) 1 each MISCELLANE ONCE PRN PRN Reason: Consult order Labs CBC & Chem 7: 05/26/22 05:10 05/26/22 05:10 Labs: Laboratory Results - last 24 hr 05/28/22 05/28/22 05/28/22 10:02 11:30 15:37 POC Glucose 131 H 119 H Lipase 1866 H 05/28/22 05/29/22 05/29/22 19:32 03:02 07:32 POC Glucose 129 H 119 H 112 Lipase 05/29/22 11:06 POC Glucose 119 H Lipase Assessment and Plan (1) Acute pancreatitis: Status: Acute Plan A 42 years old male with PMH of ulcerative colitis post colectomy on colostomy, acute pancreatitis,, HLD, obesity along others who presents to the hospital complaining of abdominal pain for the last 2 days. Acute pancreatitis d/t hypertriglyceridemia -lipase is flutuating but Trigliceride is going down -continue present diet -diladid for pain -Gi to assess her HLD --Statin, Fenofibrate continue, niacin to 500 GERD Continue omeprazole DVT prophylaxis Lovenox Patient will need overnight hospital stay for insulin drip to treat hypertrigl yceridemia. Quality Stroke Does the patient have a stroke diagnosis?: No VTE Prior VTE?: No VTE Risk Level:: Medical - moderate - high VTE Device Contraindication: Treatment Not Indicated VTE Drug Contraindication: N/A - Med Ordered
[2022-05-29 11:19] LABS: Lipase 1434 U/L (8-78)
[2022-05-29 11:25] VITALS: BP 137/84; PULSE 96; RESP 17; TEMP 36.9; O2SAT 97
[2022-05-29 11:50] LABS: Anion Gap 17 (12-20); Blood Urea Nitrogen 13 mg/dL (9-16); Calcium 9.8 mg/dL (8.4-10.2); Carbon Dioxide 22 mmol/L (22-29); Chloride 100 mmol/L (96-108); Creatinine Clr Calc Pharmacy 117.9; Estimated Glomerular Filt Rate > 60; Glucose Random 102 mg/dL (60-115); Potassium 4.4 mmol/L (3.3-5.1); Sodium 135 mmol/L (135-145)
--- NOTE | 2022-05-29 15:17 | MHC.CM.PN ---
EMR REVIEWED PER MD ROUNDS, NOT MEDICALLY CLEARED FOR DC TODAY (ACUTE PANCREATITIS,HYPERTRIGLICERDEMIA) CM WILL CONTINUE TO FOLLOW FOR DC NEEDS
[2022-05-29 16:00] VITALS: BP 135/84; PULSE 85; RESP 18; TEMP 36.7; O2SAT 96
[2022-05-29 16:28] LABS: Glucose, Whole Blood 116 mg/dL (60-115)
[2022-05-29 18:56] VITALS: BP 147/89; PULSE 84; RESP 18; TEMP 36.2; O2SAT 97
[2022-05-30] VITALS: BP 132/84; PULSE 79; RESP 16; TEMP 36.4; O2SAT 98
[2022-05-30 03:24] VITALS: BP 123/84; PULSE 86; RESP 16; TEMP 36.3; O2SAT 96
--- NOTE | 2022-05-30 07:36 | PM.DS ---
DS: Providers Provider Date of Service: 05/30/22 Date of admission: 05/21/22 18:18 Primary care physician: Dayton Gould PA-C Consults: 05/22/22 11:01 Consult to General Surgery Routine Consulting Provider: Ignacio Harris Reason for consultation: worsening abd pain, tense abd in pancreatitis\hx colectomy 05/29/22 11:24 Consult to Gastroenterology Routine Consulting Provider: Augie Bright Reason for consultation: recurrent pancreatitis Has provider been notified: No DS: Diagnosis Discharge Diagnosis (1) Acute pancreatitis: Status: Resolved DS: Summary Hospital Course Hospital Course: Chief Complaint: Abdominal pain A 42 years old male with PMH of ulcerative colitis post colectomy on colostomy, acute pancreatitis,, HLD, obesity along others who presents to the hospital complaining of abdominal pain for the last 2 days. The patient reports that since yesterday he has been having abdominal pain mainly in the left-sided his abdomen that did not resolve with home medications of Advil.? He felt similar send Tums 1 week ago but that resolved.? He denies any alcohol consumption over the last few diff time.? Today he could not tolerate food he felt nauseous but denies any fever, chills, vomiting, change in bowel habit, urinary symptoms.? In the emergency CT scan showed evidence of pancreatitis with associated elevated lipas Hospital course: This patient with known history of hypertriglyceride induced acute pancreaitis presented yet again with abdominal pain and found to have elevated lipase (initial 618), triglyceride level of [address] finding consistent with acute pancreatitis. He was admitted through the ICU where he required insulin drip along with some Lipitor, and phenyl fibrate and ultimately was also started on niacin over the course of hospitalization his lipase level has actually trended up although his pain level continued to be improving and is tolerating regular diet triglyceride level has decreased at presently 334, lipase peaked at 1866 and is coming down. He has in the past seen Dr. Bright and should follow-up up with him on outpatient basis. Additionally he is advised to avoid fatty food and to take Lipitor, niacin, and fenofibrate as directed. Abdominal exam is benign and he wishes to go home. Time Spent with Patient Time attestation: Total time spent providing and/or coordinating discharge services: Discharge coordination time: Greater than 30 minutes Quality: Safe Use of Opioids Does Pt have an Active Cancer Diagnosis on the Problem List?: No Quality: Stroke Does the patient have a stroke diagnosis?: No Physical Exam Vital Signs: Vital Signs: Last Vital Signs Temp 97.4 F 05/30/22 03:24 Pulse 86 05/30/22 03:24 Resp 16 05/30/22 03:24 BP 123/84 05/30/22 03:24 Pulse Ox 96 05/30/22 03:24 O2 Del Method 05/30/22 03:24 O2 Flow Rate 98 05/27/22 15:14 BMI result Body Mass Index 31.1 Const: Other: General: AO X 3, no acute distress Resp: CTA bilateral CVS: S1,S2,RRR GI: +BS, NT, no distention Skin: No rash Neuro: motor grossly intact Psych: appropriate affect DS: Data Data Completed and Pending Labs on day of discharge: Laboratory Results - last 24 hr 05/29/22 05/29/22 05/29/22 07:32 08:10 11:06 Sodium 135 Potassium 4.4 Chloride 100 Carbon Dioxide 22 Anion Gap 17 BUN 13 D Creatinine 0.96 Estim Creat Clear Calc 117.9 Estimated GFR > 60 POC Glucose 112 119 H Random Glucose 102 Calcium 9.8 D Lipase 1434 H 05/29/22 16:06 Sodium Potassium Chloride Carbon Dioxide Anion Gap BUN Creatinine Estim Creat Clear Calc Estimated GFR POC Glucose 116 H Random Glucose Calcium Lipase Discharge Plan Discharge Anticipated Discharge Date/Time: 05/30/22 07:24 Patient Disposition: Home, Self-Care Discharge Diagnosis: Acute pancreatitis, Hypertriglyceridemai Referrals: Dayton Gould PA-C [Primary Care Provider] - 1 Week Discharge Medications: New aspirin 81 mg capsule 81 mg PO DAILY Qty: 30 0RF atorvastatin [Lipitor] 40 mg tablet 40 mg PO BEDTIME Qty: 14 0RF Continued omeprazole 40 mg capsule,delayed release(DR/EC) 40 mg PO DAILY PRN (Reason: Acid Reflux) ibuprofen [Advil] 200 mg Tablet 400 mg PO Q8H PRN (Reason: Pain) fenofibrate 160 mg tablet 160 mg PO DAILY 30 Days Qty: 30 3RF No Action (DME) Skin Prep Wipes Misc See Rx Instructions .Route Qty: 50 8RF Rx Instructions: As directed (DME) Stomahesive Paste Paste See Rx Instructions .Route Qty: 56.7 8RF Rx Instructions: As directed (DME) Premier Colostomy-Ileostomy 12 (2 1/2 ) misc See Rx Instructions .Route Qty: 5 8RF Rx Instructions: As directed amoxicillin 500 mg tablet 500 mg PO BID 7 Days Qty: 14 0RF niacin 250 mg tablet extended release 500 mg PO DAILY 90 Days Qty: 180 1RF albuterol sulfate [Ventolin HFA] 90 mcg/actuation HFA aerosol inhaler 1 puff inhalation QID 30 Days Qty: 8.5 3RF Discharge Orders: Discharge Order (Routine); Ordered 05/30/22 Ordered By: Rudy Diaz Diet: Advance to usual diet Activity on Discharge: As tolerated Stand Alone Forms: Patient Portal Discharge page Care Plan Goals: full recovery from pancreatitis Health Concerns: acute pancreaitis, hypertriglyceredemia Plan of Treatment: Take Niacin, Lipitor and Fenofibrate as recommended Follow up with Dr. Bright Follow up with your Doctor in a week avoid fatty food Assessment: As above Discharge Date/Time: 05/30/22 13:21
[2022-05-30 07:55] VITALS: BP 123/83; PULSE 78; RESP 17; TEMP 37; O2SAT 99
--- NOTE | 2022-05-30 09:52 | MHC.CM.PN ---
DP: PT MEDICALLY CLEARED FOR DISCHARGE HOME, NO SERVICES. RN AWARE. PER PT, HAS A RIDE HOME.
[2022-05-30] MEDS: Fenofibrate 160 MG TABLET PO (10:14)
[2022-05-30] MEDS: Atorvastatin Calcium 80 MG TABLET PO (10:14)
[2022-05-30 11:32] VITALS: BP 134/83; PULSE 88; RESP 18; TEMP 36.3; O2SAT 99
== END 2022-05-30 13:21 | disposition home or self-care (01) | DRG 282 ==
LOC: HO.ED 17:52 → HO.EDOVER 19:08 → HO.S3 20:44 → HO.EDOVER 05-22 13:36 → HO.S3 05-22 13:36 → HO.ICU 05-22 13:36 → HO.S3 05-26 08:57
PROVIDERS: Anesthesiology; Internal Medicine; Internal Medicine Cardiovascular Disease; Nurse Practitioner Family; Admitting Provider Student in an Organized Health Care Education/Training Program; Emergency Provider Emergency Medicine; PCP Physician Assistant; Visit Provider Internal Medicine
DX: K85.90 Acute pancreatitis without necrosis or infection, unspecified (principal); R65.10 Systemic inflammatory response syndrome (SIRS) of non-infectious origin without acute organ dysfunction; E66.9 Obesity, unspecified; K21.9 Gastro-esophageal reflux disease without esophagitis; K52.3 Indeterminate colitis; E78.1 Pure hyperglyceridemia; Z20.822 Contact with and (suspected) exposure to COVID-19; Z68.31 Body mass index [BMI] 31.0-31.9, adult; Z93.3 Colostomy status; Z88.8 Allergy status to other drugs, medicaments and biological substances; Z79.82 Long term (current) use of aspirin; Z79.899 Other long term (current) drug therapy
CPT/HCPCS: 36415; 71045; 74177; 80048; 80053; 80061; 81001; 81003; 82150; 82550; 82803; 82947; 83605; 83615; 83690; 83735; 84100; 84132; 84478; 85025; 85027; 85610; 85730; 87040; 87086; 87635; 96361; 96374; 96375; 96376; 99285; C1758; J1170; J1650; J1885; J2250; J2270; J2405; J2765; J3475; Q9967

== ENCOUNTER 2022-06-12 08:00 | Outpatient (REF) | payer OTHER, SELFPAY ==
[2022-06-12 11:44] LABS: TSH reflex Free T4 0.91 uIU/mL (0.32-4.0)
[2022-06-12 12:04] LABS: Alanine Aminotransferase 49 U/L (0-40); Alkaline Phosphatase 108 U/L (39-117); Anion Gap 11 (12-20); Aspartate Amino Transferase 118 U/L (5-37); Bilirubin Total 0.4 mg/dL (0.0-1.0); Blood Urea Nitrogen 12 mg/dL (9-16); Calcium 9.3 mg/dL (8.4-10.2); Carbon Dioxide 22 mmol/L (22-29); Chloride 107 mmol/L (96-108); Cholesterol 141 mg/dL; Estimated Glomerular Filt Rate > 60; Glucose Fasting 111 mg/dL (60-99); Glucose Random 110 mg/dL (60-115); HDL Cholesterol 34 mg/dL; Potassium 4.2 mmol/L (3.3-5.1); Sodium 136 mmol/L (135-145); Total Protein 6.8 g/dL (6.5-8.0); Triglycerides 446 mg/dL; Vitamin D 25-OH Total 19.7 ng/mL (>30)
[2022-06-12 12:45] LABS: Lipase 333 U/L (8-78)
[2022-06-13 17:03] LABS: LDL Cholesterol Direct 36 mg/dL (<100)
[2022-06-17 17:48] LABS: Testosterone, Free 88.4 pg/mL (35.0-155.0); Testosterone, Total 257 ng/dL (250-1100)
== END 2022-06-12 08:01 | disposition home or self-care (01) ==
LOC: HO.10HDL 08:00
PROVIDERS: Absent Provider Internal Medicine; Visit Provider Physician Assistant
DX: E78.1 Pure hyperglyceridemia (principal); E55.9 Vitamin D deficiency, unspecified; K85.00 Idiopathic acute pancreatitis without necrosis or infection; R53.83 Other fatigue; R68.82 Decreased libido; E78.5 Hyperlipidemia, unspecified; K85.80 Other acute pancreatitis without necrosis or infection; R74.01 Elevation of levels of liver transaminase levels
CPT/HCPCS: 36415; 80053; 80061; 82306; 83690; 83721; 84402; 84403; 84443

== ENCOUNTER 2022-07-10 15:08 | Outpatient (REF) | payer OTHER, SELFPAY ==
[2022-07-10 16:24] LABS: Influenza A PCR NEGATIVE (Negative); Influenza B PCR NEGATIVE (Negative); Resp Syncy Virus RNA Qual PCR NEGATIVE (Negative); SARS COV2 PCR INHOUSE NEGATIVE (Negative)
== END 2022-07-10 15:09 | disposition home or self-care (01) ==
LOC: HO.LAB 15:08
PROVIDERS: PCP Physician Assistant; Visit Provider Internal Medicine
DX: R09.89 Other specified symptoms and signs involving the circulatory and respiratory systems (principal); Z20.822 Contact with and (suspected) exposure to COVID-19
CPT/HCPCS: 0241U

== ENCOUNTER 2022-07-25 20:45 | Emergency (ER) | payer OTHER, SELFPAY ==
--- NOTE | ~2022-07-25 | CT_ITS ---
EXAMINATION: CT ABDOMEN AND PELVIS WITH CONTRAST CLINICAL INFORMATION: Pain around end ileostomy COMPARISON: CT abdomen pelvis 05/22/2022 TECHNIQUE: Multidetector volumetric images were obtained from the superior aspect of the liver through the pubic symphysis following administration 85 mL of Omnipaque 350 intravenous contrast. Sagittal and coronal reformatted images were obtained on the technologist's workstation. Oral contrast: No This CT examination was performed using dose optimization techniques as appropriate, variously including the following: *Automated exposure control *Adjustment of mA and/or kV according to patient size (this includes techniques or standardized protocols for targeted exams where dose is matched to indication/reason for exam; i.e. extremities or head) *Use of iterative reconstruction technique DLP: 702 mGy-cm FINDINGS: LUNG BASES: The visualized lung bases are unremarkable. Bibasilar dependent atelectasis is present LIVER, GALLBLADDER, AND BILIARY TREE: The liver is mildly enlarged at 17.8 cm in cephalocaudad dimension. The liver demonstrates decreased attenuation suggesting hepatic steatosis. No focal hepatic lesion or biliary ductal dilatation is present. The gallbladder is unremarkable with no evidence of radiopaque gallstones, gallbladder wall thickening, or obvious pericholecystic inflammatory changes. PANCREAS: At the time of the prior study, there was marked pancreatitis present which for the most part has nearly completely resolved. There are some tiny residual fluid collections seen around the pancreatic tail measuring 2.0 x 0.7 cm (3:29 and 1.4 x 0.8 cm (3:26). SPLEEN: Unremarkable. A 0.9 cm splenic cyst is present ADRENAL GLANDS: Unremarkable. KIDNEYS AND URETERS: The kidneys are normal in size, shape, and attenuation. No hydronephrosis, hydroureter, or calculi seen. No perinephric stranding. BLADDER: Unremarkable. GASTROINTESTINAL TRACT: A tiny hiatal hernia is present. The patient is status post total colectomy. There are multiple dilated loops of small bowel present in the pelvis which continue to the ileostomy and I suspect that this is the site of obstruction. The proximal small is unremarkable. ABDOMINAL WALL: No significant hernia is appreciated. Ileostomy as described above. LYMPH NODES: No retroperitoneal lymphadenopathy. VASCULAR: Aorta and iliofemoral vessels appear normal. A TrapEase IVC filter is noted in the infrarenal IVC with its tip 4.7 cm below the level of the renal veins. PELVIC VISCERA: Unremarkable. OSSEOUS STRUCTURES: Unremarkable. CT/CT abdomen pelvis w IV con IMPRESSION: 1. Status post total colectomy with dilated loops of small bowel present in the pelvis which continue to the ileostomy and I suspect that the ostomy is the site of obstruction. Recommend cannulation and decompression. 2. Near complete resolution of pancreatitis with some tiny residual fluid collections around the pancreatic tail. 3. Incidental note made of mildly enlarged fatty liver, IVC filter and other findings described above. Fleischner guidelines were followed. This critical result was discussed with Dr. Geri Chavez at 12:05 AM on 07/26/2022 and it was ascertained that the content and urgency of the report was understood at the time of direct communication.
[2022-07-25 20:50] VITALS: BP 134/92; PULSE 76; RESP 18; TEMP 36.8; O2SAT 97; BMI 29.8
--- NOTE | 2022-07-25 21:31 | ED.GENADULT ---
HPI - General Adult General Chief complaint: Abdominal Pain Stated complaint: Colostomy bag issues Time Seen by Provider: 07/25/22 21:27 History of Present Illness HPI narrative: Patient 42 years old with history of surgical eye it is post colectomy, with end ileostomy, history of DVT with IVC filter in place, history of pancreatitis hypertriglyceridemia comes in for pain around the ileostomy location since yesterday and not getting better patient not passing any stool has ileostomy opening which is getting tighter patient get this pain once or twice a year Related Data Home Medications Medication Instructions Recorded Confirmed omeprazole 40 mg capsule,delayed 40 mg PO DAILY PRN Acid Reflux 10/24/21 06/07/22 release ibuprofen 200 mg tablet (Advil) 400 mg PO Q8H PRN Pain 05/21/22 06/07/22 Previous Rx's Medication Instructions Recorded colostomy-Ileost.set,nonsteril 12 #5 ea 11/02/21 (2 07/03 ) (Premier Colostomy-Ileostomy) ostomy adhesive (Stomahesive Paste) #56.7 grams 11/02/21 ostomy supplies (Skin Prep Wipes) #50 ea 11/02/21 fenofibrate 160 mg tablet 160 mg PO DAILY 30 days #30 tabs 01/25/22 aspirin 81 mg capsule 81 mg PO DAILY #30 caps 05/30/22 atorvastatin 40 mg tablet (Lipitor) 40 mg PO BEDTIME #14 tabs 05/30/22 albuterol sulfate 90 mcg/actuation 1 puff inhalation QID 30 days #8.5 06/07/22 aerosol inhaler (Ventolin HFA) grams niacin 250 mg tablet,extended 500 mg PO DAILY 90 days #180 tabs 06/07/22 release amoxicillin 500 mg tablet 500 mg PO BID 7 days #14 tabs 07/11/22 Allergies Allergy/AdvReac Type Severity Reaction Status Date / Time cetirizine [From Zyrtec] AdvReac Mild Nightmare Verified 06/07/22 12:04 lactose AdvReac Unknown Diarrhea Verified 06/07/22 12:04 Review of Systems Review of Systems: Yes all other systems are reviewed and are negative PMFSH Past Medical History Medical History Allergic rhinitis Annual physical exam B12 deficiency Chronic nasal congestion Colitis Constipation by delayed colonic transit CASSIA (generalized anxiety disorder) GERD without esophagitis H/O acute pancreatitis H/O deep venous thrombosis HLD (hyperlipidemia) Hypertriglyceridemia Hypertriglyceridemia Infected nasal abrasion Infection of lip Inflammatory bowel diseases (IBD) Injury of lumbar spine Low libido Lumbar disc herniation with radiculopathy Lumbar radiculopathy, chronic Nasal sinus congestion Obese Obesity Presence of ileostomy Presence of IVC filter Right knee injury Sinusitis Sleep disorder breathing Transaminitis Ulcerative colitis Vitamin D deficiency Zinc deficiency Surgical History History of colectomy History of ileostomy History of ileostomy History of resection of rectum Family History Family History Father CVD (cardiovascular disease) Mother Hypertension Diabetes Maternal Grandmother Liver cancer Maternal Grandfather CVD (cardiovascular disease) Family/Other Diabetes Social History Social History Household Members: Other Household Members Other:: girlfriend and children Housing: House Do you presently have visiting nurse or other home services: No Alcohol intake: never Patient Tobacco Use Status: Former Tobacco user Smoked in Last 30 Days: No e-Cigarette/Vaping Use: Never Used Use of substances other than those prescribed or required for medical reasons: Yes Substance Use Type: Marijuana Advance Directives: No Advance Directives Information Provided: Yes service: No Current occupational status: disabled Cognitive needs: No Hearing needs: No Vision needs: No Physical Exam ED Vital Signs: Vital Signs - 24 hr 07/25/22 20:50 07/26/22 00:12 Temperature 98.2 F 97.9 F Pulse Rate 76 77 Respiratory Rate 18 16 Blood Pressure 134/92 H 142/81 H Pulse Oximetry 97 98 Oxygen Delivery Method Room Air Room Air BMI result Body Mass Index 29.8 Appearance: Alert. Oriented X3. In moderate distress distress. Eyes: PERRLA, No Nystagmus ENT: Pharynx normal. Oral Mucosa moist Neck: Normal inspection. Neck supple. CVS: Normal heart rate and rhythm. Pulses normal. Respiratory: No respiratory distress. Equal air entry bilateral, no wheezing/rales/rhonchi Abdomen: Soft pain and swelling around the ileostomy . Bowel sounds are present, no mass palpable, no CVA tenderness Skin: Skin warm and dry. Normal skin color. Normal skin turgor. Extremities: No lower extremity edema. No calf tenderness Neuro: Oriented X 3. No motor deficit. Medications Administered Discontinued Medications Generic Name Dose Route Start Last Admin Trade Name Stuart PRN Reason Stop Dose Admin Hydromorphone HCl 1 mg 07/25/22 22:42 07/25/22 23:05 Hydromorphone Hcl 1 Mg/Ml Syringe IVPUSH 07/25/22 22:43 1 mg ONCE ONE Administration Protocol Sodium Chloride 1,000 mls @ 999 mls/hr 07/25/22 22:10 07/25/22 23:04 Ns IV 07/25/22 23:10 999 mls/hr .Q1H1M ONE Administration Iohexol 85 ml 07/25/22 23:43 07/25/22 23:43 Iohexol 350 Mg/Ml 100 Ml Infus..Btl IV 07/25/22 23:44 85 ml ONCE ONE Administration Ondansetron HCl 4 mg 07/25/22 22:42 07/25/22 23:05 Ondansetron Hcl 4 Mg/2 Ml Vial IVPUSH 07/25/22 22:43 4 mg ONCE ONE Administration Medical Decision Making Medical Decision Making [facility] Narrative: Patient had dilated bowel loops with obstruction and ileostomy opening which was opened up using straight cath patient feeling much better now pain has improved stool has started coming out will discharge patient home Lab Data [facility] Lab Attestation statement: I reviewed the patient's lab results. 07/25/22 22:56 07/25/22 22:56 Labs: Lab Results 07/25/22 07/25/22 07/25/22 Range/Units 22:56 22:56 22:56 WBC 10.5 (4.8-10.8) X10*3/uL RBC 5.30 D (4.60-5.80) X10*6/uL Hgb 13.7 L D (14.0-18.0) g/dl Hct 40.5 L D (42.0-52.0) % MCV 76.4 L (80.0-98.0) fL MCH 25.8 L (27.0-33.0) pg MCHC 33.8 (31.0-36.0) g/dl RDW 13.3 (11.0-16.0) % Plt Count 321 (160-400) X10*3/uL MPV 9.1 L (9.4-12.4) fL Immature Gran % (Auto) 0.3 (0.0-0.4) % Neut % (Auto) 43.9 L (45-73) % Lymph % (Auto) 38.0 (20-40) % Rusk % (Auto) 10.0 (2-11) % Eos % (Auto) 7.4 H (0-4) % Baso % (Auto) 0.4 (0-2) % Lymph # (Auto) 4.0 (1.2-4.9) X10*3/uL Rusk # (Auto) 1.1 (0.1-1.2) X10*3/uL Eos # (Auto) 0.8 H (0.0-0.4) X10*3/uL Baso # (Auto) 0.0 (0.0-0.2) X10*3/uL Abs Immat Gran (auto) 0.03 (0.00-0.03) X10*3/uL Absolute Neuts (auto) 4.6 (2.0-8.3) x10*3/uL Absolute Nucleated RBC 0.000 (0.0-0.012) X10*3/uL Nucleated RBC % (auto) 0.0 (0.0-0.2) /100WBC Sodium 134 L (135-145) mmol/L Potassium 3.7 (3.3-5.1) mmol/L Chloride 103 (96-108) mmol/L Carbon Dioxide 22 (22-29) mmol/L Anion Gap 13 (12-20) BUN 9 (9-16) mg/dL Creatinine 0.87 (0.5-1.4) mg/dL Estim Creat Clear Calc 127.5 Estimated GFR > 60 Random Glucose 99 (60-115) mg/dL Lactic Acid 1.4 (0.5-2.0) mmol/L Calcium 9.6 (8.4-10.2) mg/dL Total Bilirubin 0.6 (0.0-1.0) mg/dL AST 34 (5-37) U/L ALT 52 H (0-40) U/L Alkaline Phosphatase 105 (39-117) U/L Total Protein 8.2 H (6.5-8.0) g/dL Albumin 4.3 (3.5-5.0) g/dL Lipase 73 (8-78) U/L Discharge Plan Discharge Clinical Impression: Ileostomy obstruction Patient Disposition: Home, Self-Care Instructions: Ileostomy Care (ED) Additional Instructions: Abdominal pain is from obstruction of the opening of the urostomy which has been opened up local care as advised using straight cath to keep the opening open Follow with surgeon Prescriptions: No Action (DME) Skin Prep Wipes Misc See Rx Instructions .Route Qty: 50 8RF Rx Instructions: As directed (DME) Stomahesive Paste Paste See Rx Instructions .Route Qty: 56.7 8RF Rx Instructions: As directed (DME) Premier Colostomy-Ileostomy 12 (2 / ) misc See Rx Instructions .Route Qty: 5 8RF Rx Instructions: As directed amoxicillin 500 mg tablet 500 mg PO BID 7 Days Qty: 14 0RF omeprazole 40 mg capsule,delayed release(DR/EC) 40 mg PO DAILY PRN (Reason: Acid Reflux) ibuprofen [Advil] 200 mg Tablet 400 mg PO Q8H PRN (Reason: Pain) aspirin 81 mg capsule 81 mg PO DAILY Qty: 30 0RF atorvastatin [Lipitor] 40 mg tablet 40 mg PO BEDTIME Qty: 14 0RF fenofibrate 160 mg tablet 160 mg PO DAILY 30 Days Qty: 30 3RF niacin 250 mg tablet extended release 500 mg PO DAILY 90 Days Qty: 180 1RF albuterol sulfate [Ventolin HFA] 90 mcg/actuation HFA aerosol inhaler 1 puff inhalation QID 30 Days Qty: 8.5 3RF Referrals: Ignacio Harris MD [Physician] - 2 weeks
[2022-07-25 23:04] LABS: Basophils Percent Auto 0.4 % (0-2); Eosinophils Absolute Auto 0.8 X10*3/uL (0.0-0.4); Eosinophils Percent Auto 7.4 % (0-4); Hematocrit 40.5 % (42.0-52.0); Hemoglobin 13.7 g/dl (14.0-18.0); Imm Gran Abs Auto 0.03 X10*3/uL (0.00-0.03); Imm Gran Pct Auto 0.3 % (0.0-0.4); MANUAL DIFF FLAG NO; Mean Corpuscular HGB Conc 33.8 g/dl (31.0-36.0); Mean Corpuscular Hemoglobin 25.8 pg (27.0-33.0); Mean Corpuscular Volume 76.4 fL (80.0-98.0); Mean Platelet Volume 9.1 fL (9.4-12.4); Monocytes Absolute Auto 1.1 X10*3/uL (0.1-1.2); Neutrophils Absolute Auto 4.6 x10*3/uL (2.0-8.3); Neutrophils Percent Auto 43.9 % (45-73); Platelet Count 321 X10*3/uL (160-400); Red Cell Distribution Width 13.3 % (11.0-16.0); White Blood Count 10.5 X10*3/uL (4.8-10.8)
[2022-07-25] MEDS: 0.9 % Sodium Chloride 1,000 ML 999 ML IV (23:04)
[2022-07-25] MEDS: ondansetron HCL 4 MG/2 ML VIAL IVPUSH (23:05)
[2022-07-25] MEDS: HYDROmorphone HCl 1 MG/ML SYRINGE IVPUSH (23:05)
[2022-07-25 23:18] LABS: Lactic Acid 1.4 mmol/L (0.5-2.0)
[2022-07-25 23:23] LABS: Alanine Aminotransferase 52 U/L (0-40); Albumin Level 4.3 g/dL (3.5-5.0); Alkaline Phosphatase 105 U/L (39-117); Anion Gap 13 (12-20); Aspartate Amino Transferase 34 U/L (5-37); Bilirubin Total 0.6 mg/dL (0.0-1.0); Blood Urea Nitrogen 9 mg/dL (9-16); Calcium 9.6 mg/dL (8.4-10.2); Carbon Dioxide 22 mmol/L (22-29); Chloride 103 mmol/L (96-108); Creatinine Clr Calc Pharmacy 127.5; Estimated Glomerular Filt Rate > 60; Glucose Random 99 mg/dL (60-115); Lipase 73 U/L (8-78); Potassium 3.7 mmol/L (3.3-5.1); Sodium 134 mmol/L (135-145); Total Protein 8.2 g/dL (6.5-8.0)
[2022-07-25] MEDS: iohexoL 350 MG/ML 100 ML INFUS..BTL 85 ML IV (23:43)
[2022-07-26 00:12] VITALS: BP 142/81; PULSE 77; RESP 16; TEMP 36.6; O2SAT 98
[2022-07-26 00:45] VITALS: BP 130/73; PULSE 70; RESP 18; TEMP 36.4; O2SAT 98
[2022-07-26] MEDS: Ketorolac Tromethamine 30 MG/ML VIAL IVPUSH (01:45)
--- NOTE | 2022-07-26 01:49 | PC.NURSE ---
Medicated pt per Aug and Notified Campbell Pate.
--- NOTE | 2022-07-26 02:22 | PC.NURSE ---
Re-assessed pain levels prior to discharching pt. Pt. reports continued pain that subsides for a bit but then ramps up. notified. Pt. was medicated with toradol per MAR for pain and inflammation.
--- NOTE | 2022-07-26 03:12 | PC.NURSE ---
Pt. alert and oriented. Pt. pain was relieved by the ketorolac. A small amount of stool was evacuated from ilieostomy by suction. Pt. stoma is patent and air can be heard moving. Pt. to be dc'd home and may take ibuprofen to continue with inflammation relief.
== END 2022-07-26 03:15 | disposition home or self-care (01) ==
PROVIDERS: Emergency Provider Internal Medicine; PCP Physician Assistant
DX: K94.13 Enterostomy malfunction (principal); R10.2 Pelvic and perineal pain; Z79.899 Other long term (current) drug therapy
CPT/HCPCS: 36415; 74177; 80053; 83605; 83690; 85025; 96361; 96374; 96375; 99285; J1170; J1885; J2405; Q9967

== ENCOUNTER 2022-08-31 11:17 | Outpatient (REF) | payer OTHER, SELFPAY ==
--- NOTE | ~2022-08-31 | XR_ITS ---
EXAMINATION: XR CHEST CLINICAL INFORMATION: Shortness of breath COMPARISON: None TECHNIQUE: 2 views of the chest were obtained. FINDINGS: No significant abnormality is noted involving the heart, lungs, mediastinum, bony thorax or soft tissues. XR/XR chest 2V IMPRESSION: Unremarkable chest examination.
== END 2022-08-31 11:18 | disposition home or self-care (01) ==
LOC: HO.XRAY 11:17
PROVIDERS: PCP Physician Assistant; Visit Provider Nurse Practitioner Family
DX: R06.02 Shortness of breath (principal)
CPT/HCPCS: 71046

== ENCOUNTER → 2022-09-19 11:05 | Outpatient (BNVA) | payer OTHER, SELFPAY | PROVIDERS: PCP Physician Assistant; Visit Provider Dietitian, Registered | DX: E66.9 Obesity, unspecified (principal); Z68.31 Body mass index [BMI] 31.0-31.9, adult; Z71.3 Dietary counseling and surveillance | CPT/HCPCS: 97803 ==

== ENCOUNTER 2023-03-21 10:39 | Outpatient (AMB) | payer OTHER, SELFPAY ==
--- NOTE | 2023-03-21 10:42 | MHC.AMNUTRGE ---
Intake VS Expanded 03/21/23 10:44 Height 5 ft 10 in Weight 216 lb 7.903 oz BMI 31.1 Intake Visit Reasons: OBesity/hypertriglyceredemia [facility]ies [facility] Adverse Reaction (Mild, Verified 08/31/22 11:10) Nightmare lactose Adverse Reaction (Unknown, Verified 08/31/22 11:10) Diarrhea HPI Nutrition Presentation Details Pt presents for MNT f/u obesity Pt reports his diet has been poor , Reports working 2nd shift, reports meal routine has changed and tends to skip meals or choose empty calorie foods chips/energy drinks, fried foods . Pt reports not planning his meals due to lack of time. Pt reports taking odorless omega 3 fatty acides Most Recent Diabetes Results: Cholesterol 141 mg/dL 06/12/22 HDL Cholesterol 34 mg/dL 06/12/22 Triglycerides 446 mg/dL 06/12/22 Creatinine 0.87 mg/dL (0.5-1.4) 07/25/22 Blood Urea Nitrogen 9 mg/dL (9-16) 07/25/22 Sodium 134 mmol/L (135-145) L 07/25/22 Potassium 3.7 mmol/L (3.3-5.1) 07/25/22 Chloride 103 mmol/L (96-108) 07/25/22 Carbon Dioxide 22 mmol/L (22-29) 07/25/22 Calcium 9.6 mg/dL (8.4-10.2) 07/25/22 AST 34 U/L (5-37) 07/25/22 ALT 52 U/L (0-40) H 07/25/22 Total Protein 8.2 g/dL (6.5-8.0) H 07/25/22 Albumin 4.3 g/dL (3.5-5.0) 07/25/22 COUNT INCLUDES THE [facility] Medical History Allergic rhinitis Annual physical exam B12 deficiency Chronic nasal congestion Colitis Constipation by delayed colonic transit CASSIA (generalized anxiety disorder) GERD without esophagitis H/O acute pancreatitis H/O deep venous thrombosis HLD (hyperlipidemia) Hypertriglyceridemia Hypertriglyceridemia Infected nasal abrasion Infection of lip Inflammatory bowel diseases (IBD) Injury of lumbar spine Low libido Lumbar disc herniation with radiculopathy Lumbar radiculopathy, chronic Nasal sinus congestion Obese Obesity Presence of ileostomy Presence of IVC filter Right knee injury Sinusitis Sleep disorder breathing Transaminitis Ulcerative colitis Vitamin D deficiency Zinc deficiency Surgical History History of colectomy History of ileostomy History of ileostomy History of resection of rectum Family History Father CVD (cardiovascular disease) Mother Hypertension Diabetes Maternal Grandmother Liver cancer Maternal Grandfather CVD (cardiovascular disease) Family/Other Diabetes Social History Household Members: Other Household Members Other:: girlfriend and children Housing: House Do you presently have visiting nurse or other home services: No Alcohol intake: never Patient Tobacco Use Status: Former Tobacco user e-Cigarette/Vaping Use: Never Used Substance Use Type: Marijuana service: No Current occupational status: disabled Cognitive needs: No Hearing needs: No Vision needs: No Assessment & Plan Assessment & Plan (1) Obesity: Code(s): E66.9 - Obesity, unspecified Plan: Resume meal planning Today will continue to reinforce low fat /reducing empty calorie foods, adequate protein and hydration USED WT : 100 kg EST Kcal NEEDS as per [place] [address] Jeor: 2298 - 250= 8 est protein needs as per 0.8-1.0 g/kg bw: 80-100 g/d est fluid needs as per 25 ml/kg bw: 2500 ml/d Educate patient on: (R= Reviewed, V = verbalizes understanding N/R= Needs review N/A= not applicable) Food sources of carbohydrates and serving adequate serving sizes : V Difference between complex carbohydrates and simple carbohydrates, role of fiber: V Differences between fats (MUFA/PUFA/saturated fats, trans fats) and food sources of various fats: V Food sources of sodium and salt , role heart health and kidney health: V Vitamins and minerals: V How to interpret food labels: V Healthy Plate method concept: V Physical activity: benefits and precaution: R hydration R, V adequate protein intake: R, (lower the portion of meat/poultry to 3-4 oz when including high protein pastas as example) Plan Patient Instructions: Reviewed low fat food concepts and lower fat options when eating out or on the go Have meal replacement instead of skipping Include calcium rich foods and food sources of omega 3 fatty acids Coding Level of Care Code Nutr Indiv Subseq (12082) Diagnoses Obesity E66.9 Time Spent (min) 30
[2023-03-21 10:44] VITALS: BMI 31.1
== END 2023-03-21 11:09 | disposition home or self-care (01) ==
PROVIDERS: PCP Nurse Practitioner Family; Visit Provider Dietitian, Registered
DX: E66.9 Obesity, unspecified (principal)

== ENCOUNTER → 2023-03-21 10:39 | Outpatient (BNVA) | payer OTHER, SELFPAY | PROVIDERS: Visit Provider Dietitian, Registered | DX: E66.9 Obesity, unspecified (principal); Z68.31 Body mass index [BMI] 31.0-31.9, adult | CPT/HCPCS: 97803 ==

== ENCOUNTER 2023-07-18 17:10 | Emergency (ER) | payer OTHER, SELFPAY ==
--- NOTE | ~2023-07-18 | XR_ITS ---
EXAMINATION: XR CHEST CLINICAL INFORMATION: Cough COMPARISON: 08/31/2022 TECHNIQUE: 2 views of the chest were obtained. FINDINGS: No significant abnormality is noted involving the heart, lungs, mediastinum, bony thorax or soft tissues. XR/XR chest 2V IMPRESSION: Unremarkable examination.
[2023-07-18 17:44] VITALS: BP 141/91; PULSE 106; RESP 22; TEMP 37.1; O2SAT 99; BMI 29.6
[2023-07-18 18:25] LABS: COVID-19 Test Negative (Negative); IDNOW Serial# 08D9AD1C; IDNOW Serial# 152EDE1D; Influenza A Positive (Negative); Influenza B2 Negative (Negative)
--- NOTE | 2023-07-18 18:41 | ED_ITS ---
HPI - URI/Sore Throat General Chief Complaint: Upper Respiratory Symptoms Stated Complaint: SOB Time Seen by Provider: 07/18/23 18:13 Source: patient Mode of arrival: ambulatory Limitations: no limitations History of Present Illness HPI Narrative: Patient is a 43-year-old male who presents emergency department for evaluation of 3 days with cough, diffuse chest tightness that is experienced during coughing episodes, intermittent shortness of breath, body aches, headache. He denies any known sick contacts. Denies fevers, chills, headache, dizziness, neck pain, neck stiffness, sore throat, nausea, vomiting, abdominal pain, numbness or tingling of the extremities, genitourinary symptoms. Related Data Previous Rx's Medication Instructions Recorded colostomy-Ileost.set,nonsteril 12 #5 ea 11/02/21 (2 07/03 ) (Premier Colostomy-Ileostomy) ostomy adhesive (Stomahesive Paste) #56.7 grams 11/02/21 ostomy supplies (Skin Prep Wipes) #50 ea 11/02/21 aspirin 81 mg capsule 81 mg PO DAILY #30 caps 05/30/22 albuterol sulfate 90 mcg/actuation 1 puff inhalation QID 30 days #8.5 06/07/22 aerosol inhaler (Ventolin HFA) grams niacin 250 mg tablet,extended 500 mg (2 x 250 mg) PO DAILY 90 06/07/22 release days #180 tabs atorvastatin 40 mg tablet (Lipitor) 40 mg PO BEDTIME #30 tabs 09/27/22 fenofibrate 160 mg tablet 160 mg PO DAILY 90 days #90 tabs 01/23/23 ibuprofen 800 mg tablet 800 mg PO Q8H 30 days #90 tabs 02/21/23 omeprazole 40 mg capsule,delayed 40 mg PO DAILY PRN Acid Reflux #90 04/23/23 release caps albuterol sulfate 90 mcg/actuation 2 puff inhalation Q4-6H PRN 07/18/23 aerosol inhaler shortness of breath or wheezing #6.7 grams Allergies Allergy/AdvReac Type Severity Reaction Status Date / Time cetirizine [From Zyrtec] AdvReac Mild Nightmare Verified 07/18/23 17:46 lactose AdvReac Unknown Diarrhea Verified 07/18/23 17:46 Review of Systems Review of Systems: Yes all other systems are reviewed and are negative PMFSH Past Medical History Attestation statement: The following information was validated with the patient. Source: old records reviewed Onset Date is defined in the Problem List Problems that require an onset date and time if occurred within 24 hrs of arrival to the ED Aortic Dissection and Rupture; Neurologic impairment; Cardiopulmonary Arrest; Endotracheal Intubation; Insertion or Replacement of Mechanical Circulatory Assist Device Medical History Transaminitis Hypertriglyceridemia Sinusitis Inflammatory bowel diseases (IBD) Ulcerative colitis Sleep disorder breathing Infection of lip Lumbar disc herniation with radiculopathy Right knee injury Injury of lumbar spine Infected nasal abrasion Presence of ileostomy Lumbar radiculopathy, chronic HLD (hyperlipidemia) Constipation by delayed colonic transit Annual physical exam Allergic rhinitis Obesity Colitis Zinc deficiency B12 deficiency Vitamin D deficiency Chronic nasal congestion Nasal sinus congestion Obese Low libido GERD without esophagitis Presence of IVC filter H/O deep venous thrombosis H/O acute pancreatitis CASSIA (generalized anxiety disorder) Hypertriglyceridemia Surgical History History of ileostomy History of colectomy History of ileostomy History of resection of rectum Family History Family History Father CVD (cardiovascular disease) Mother Hypertension Diabetes Maternal Grandmother Liver cancer Maternal Grandfather CVD (cardiovascular disease) Family/Other Diabetes Social History Social History Household Members: Other Household Members Other:: girlfriend and children Housing: House Do you presently have visiting nurse or other home services: No Alcohol intake: never Patient Tobacco Use Status: Former Tobacco user e-Cigarette/Vaping Use: Never Used Substance Use Type: Marijuana Advance Directives: No Advance Directives Information Provided: No service: No Current occupational status: disabled Cognitive needs: No Hearing needs: No Vision needs: No Physical Exam Vital Signs: Vital Signs: Last Vital Signs Temp 98.8 F 07/18/23 17:44 Pulse 106 H 07/18/23 17:44 Resp 22 H 07/18/23 17:44 BP 141/91 H 07/18/23 17:44 Pulse Ox 99 07/18/23 17:44 O2 Del Method Room Air 07/18/23 17:44 BMI result Body Mass Index 29.6 Appearance: Alert.?Oriented to person, place and time. No acute distress.?Normal affect. Eyes: Pupils equal, round and reactive to light.? ENT: TM normal bilaterally. Pharynx normal.?? Neck: Normal inspection.? Neck supple.??No cervical adenopathy CVS: Heart sounds normal. Normal heart rate and rhythm.? Pulses normal.?? Respiratory: No respiratory distress.? Lung sounds clear to auscultation bilaterally?? Abdomen: Soft and non-tender. Normoactive bowel sounds. Skin: Skin warm and dry.? Normal skin color.? ? Extremities: No lower extremity edema.? Neuro: Moves all extremities spontaneously. Sensation intact bilaterally. No motor deficits. Ambulates with normal steady gait. Medical Decision Making Medical Decision Making [facility] Narrative: Patient is a 43-year-old male, presenting for evaluation of upper respiratory symptoms. COVID-19 testing negative, Influenza A testing positive, given duration of symptoms he is outside of the window for Tamiflu. At this time history and physical exam not consistent with ACS/PE/pneumonia. Well-appearing, nontoxic, afebrile, mild tachycardia, no tachypnea/hypoxia. Speaking clear full sentences, ambulatory with steady gait. Discussed conservative treatment including rest, hydration, Tylenol/ibuprofen as needed for fever and body aches, saline nasal spray, humidifier, vuxi-rdc-mgssigm cold medication. Advised to follow-up with primary care provider as needed, discussed reasons to return back to the emergency department. All questions were answered. Patient discharged home in stable condition. Provided with a return to work/school note. Differential Diagnosis Differential Diagnoses: The differential diagnosis associated with the presentation includes ( See narrative above) Admission/Observation Consideration of admission/observation: Escalation of care including admission/o bservation considered ( see narrative above) Lab Data [facility] Lab Attestation statement: I reviewed the patient's lab results. ( see narrative above) Labs: Lab Results 07/18/23 Range/Units 17:58 COVID-19 (CAL) Negative (Negative) COVID-19 Clin Com See Note Influenza Type A ([facility]) Positive A (Negative) Influenza Type B ([facility]) Negative (Negative) Influenza A & B Note See Note Independent Interpretation I performed an independent interpretation of an: Plain X-Ray (I personally interpreted chest x-ray and agree with radiologist impression.) Radiology Impression Discussion of test interpretation with radiology: I have reviewed the radiologist's reading. Radiologist Impression: XR/XR chest 2V IMPRESSION: Unremarkable examination. Independent Historian Clinical information obtained from an independent historian. History obtained from or confirmed by: Spouse External Record Review External record reviewed: Outpatient record Prescription Management I considered prescription management with: Pain Medication ( acetaminophen/ibuprofen) and Antiviral (See narrative above) Discharge Plan Discharge Clinical Impression: Influenza Patient Disposition: Home, Self-Care Instructions: Influenza (ED) Additional Instructions: Be sure to rest, stay well hydrated drinking plenty of fluids, eat small frequent meals. Tylenol/ibuprofen can be used as needed for fever/pain. Hpqz-njl-vbmseqn cold medications may be helpful as well for symptoms. Saline nasal spray, humidifier may be helpful for nasal congestion. You may return to the emergency department with any new or worsening symptoms or concerns. Follow-up with your primary care provider as needed. Should remain out of school/ work until symptoms have resolved and have been without a fever for 24 hours without the use of Tylenol or ibuprofen. Prescriptions: New albuterol sulfate 90 mcg/actuation HFA aerosol inhaler 2 puff inhalation Q4-6H PRN (Reason: shortness of breath or wheezing) Qty: 6.7 0RF No Action (DME) Skin Prep Wipes Mis See Rx Instructions .Route Qty: 50 8RF Rx Instructions: As directed (DME) Stomahesive Paste Paste See Rx Instructions .Route Qty: 56.7 8RF Rx Instructions: As directed (DME) Premier Colostomy-Ileostomy 12 (2 1/ ) misc See Rx Instructions .Route Qty: 5 8RF Rx Instructions: As directed atorvastatin [Lipitor] 40 mg tablet 40 mg PO BEDTIME Qty: 30 3RF fenofibrate 160 mg tablet 160 mg PO DAILY 90 Days Qty: 90 3RF ibuprofen 800 mg tablet 800 mg PO Q8H 30 Days Qty: 90 1RF omeprazole 40 mg capsule,delayed release(DR/EC) 40 mg PO DAILY PRN (Reason: Acid Reflux) Qty: 90 2RF aspirin 81 mg capsule 81 mg PO DAILY Qty: 30 0RF niacin 250 mg tablet extended release 500 mg PO DAILY 90 Days Qty: 180 1RF albuterol sulfate [Ventolin HFA] 90 mcg/actuation HFA aerosol inhaler 1 puff inhalation QID 30 Days Qty: 8.5 3RF Referrals: Dayton Gould PA-C [Primary Care Provider] -
--- NOTE | 2023-07-18 18:47 | PC.NURSE ---
pt resps = and nonlabored, pt is speaking in full clear sentences, no sign distress.
== END 2023-07-18 20:11 | disposition home or self-care (01) ==
PROVIDERS: Physician Assistant Medical; Emergency Provider Emergency Medicine Emergency Medical Services; PCP Physician Assistant
DX: J10.1 Influenza due to other identified influenza virus with other respiratory manifestations (principal); Z11.52 Encounter for screening for COVID-19
CPT/HCPCS: 71046; 87502; 87635; 99282; 99283

== ENCOUNTER 2023-07-26 09:32 | Outpatient (AMB) | payer OTHER, SELFPAY ==
[2023-07-26 09:39] VITALS: BP 102/78; PULSE 70; O2SAT 98; BMI 29.3
--- NOTE | 2023-07-26 09:39 | MHC.PC.OV ---
Vital Signs 07/26/23 09:39 Height 5 ft 10 in Weight 204 lb 2 oz BMI 29.3 BP 102/78 Blood Pressure Location Lt brachial Position Sitting Pulse 70 Pulse Source Pulse Oximeter Pulse Oximetry (%) 98 Oxygen Delivery Method Room Air Intake Visit Reasons: Bronchiolitis Intake Note: Patient is here to follow-up after a visit the emergency department at [facility] on 07/18/23 for Influenza. Chicken Tender Required: No Accompanied by: Spouse Allergies cetirizine [From [facility]] Adverse Reaction (Mild, Verified 07/26/23 09:56) Nightmare lactose Adverse Reaction (Unknown, Verified 07/26/23 09:56) Diarrhea Medication List - Last Reconciled 07/26/23 by Dayton Gould PA-C albuterol sulfate 90 mcg/actuation 2 puffs inhalation Q4-6H PRN albuterol sulfate 90 mcg/actuation (Ventolin HFA) 1 puff inhalation QID 30 days aspirin 81 mg PO DAILY atorvastatin (Lipitor) 40 mg PO BEDTIME colostomy-Ileost.set,nonsteril (Premier Colostomy-Ileostomy) As directed fenofibrate 160 mg PO DAILY 90 days ibuprofen 800 mg PO Q8H 30 days niacin ER 500 mg (2 x 250 mg) PO DAILY 90 days omeprazole 40 mg PO DAILY PRN ostomy adhesive (Stomahesive Paste) As directed ostomy supplies (Skin Prep Wipes) As directed Tobacco use date assessed: 07/26/23 Dental Screening Dental Screen Date: 07/26/23 Did you have a dental visit in the last 12 months?: No Did you have a dental problem in the last 6 months where you did not have access to dental care?: No Was dental information given to patient?: Patient has dentist HPI Bronchiolitis HPI Details Patient is a 43-year-old male here today for ER follow-up visit. Patient has a past medical history significant for hypertriglyceridemia, GERD, status post colectomy and and has colostomy bag. Reports recently in the ER for acute upper respiratory infection was found to have influenza A. Chest x-ray while in the ER without any evidence of pulmonary infiltrate. He reports he still has some tetanus in his chest and some sinus congestion which is chronic. Will supply patient with prednisone for a few days IVC filter place: Has had trouble lying down on his left side as he feels he is suffocating and feels a tight pressure in his chest. He attributes this to his IVC filter that apparently has migrated in his broken. 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 He would like a 2nd opinion with commercial collections specialist in [place]. Of note he was apparently supposed to have an obstructive sleep apnea test though has not been able to schedule due to long work hours. Hypertriglyceridemia: Was followed by Endocrinology and has upcoming appointment in August of 2023. Continues on niacin and fenofibrate. He reports he stopped using atorvastatin as it is causing him some polyarthralgia. PLAN: Will recheck fasting lipid panel [facility] Medical History Presence of IVC filter Transaminitis Hypertriglyceridemia Sinusitis Inflammatory bowel diseases (IBD) Ulcerative colitis Sleep disorder breathing Infection of lip Lumbar disc herniation with radiculopathy Right knee injury Injury of lumbar spine Infected nasal abrasion Presence of ileostomy Lumbar radiculopathy, chronic HLD (hyperlipidemia) Constipation by delayed colonic transit Annual physical exam Allergic rhinitis Obesity Colitis Zinc deficiency B12 deficiency Vitamin D deficiency Chronic nasal congestion Nasal sinus congestion Obese Low libido GERD without esophagitis H/O deep venous thrombosis H/O acute pancreatitis CASSIA (generalized anxiety disorder) Hypertriglyceridemia Surgical History History of ileostomy History of colectomy History of ileostomy History of resection of rectum Family History Father CVD (cardiovascular disease) Mother Hypertension Diabetes Maternal Grandmother Liver cancer Maternal Grandfather CVD (cardiovascular disease) Family/Other Diabetes Social History Household Members: Other Household Members Other:: girlfriend and children Housing: House Do you presently have visiting nurse or other home services: No Alcohol intake: never Patient Tobacco Use Status: Former Tobacco user e-Cigarette/Vaping Use: Never Used Substance Use Type: Marijuana service: No Current occupational status: disabled Cognitive needs: No Hearing needs: No Vision needs: No Questionnaire PHQ-9 Over the last 2 weeks, how often have you been bothered by any of the following problems? 1. Little interest or pleasure in doing things: not at all 2. Feeling down, depressed, or hopeless: not at all 3. Trouble falling or staying asleep, or sleeping too much: not at all 4. Feeling tired or having little energy: not at all 5. Poor appetite or overeating: not at all 6. Feeling bad about yourself - or that you are a failure or have let yourself or your family down: not at all 7. Trouble concentrating on things, such as reading the newspaper or watching television: not at all 8. Moving or speaking so slowly that other people could have noticed. Or the opposite - being so fidgety or restless that you have been moving around a lot more than usual: not at all 9. Thoughts that you would be better off or of hurting yourself in some way: not at all Total score: 0 Depression Screening Interpretation: Negative Depression Screening Done: Yes 62712 - PHQ-9 Billing: Yes Source: Developed by Drs. Augie Acosta, Radha Echavarria, Eros Robbins and colleagues, with an educational juli from [employer]. Thrive Questionnaire Date Thrive assessed: 07/26/23 I am a: Patient What is your living situation today?: I have a steady place to live Within the past 12 months, did the food you bought not last and you didn't have the money to get more?: Never true Within the past 12 months, did you worry whether your food would run out before you got money to buy more?: Never true Do you have trouble paying for medicines?: No Do you have trouble getting transportation to medical appointments?: No Do you have trouble paying your heating and electricity bill?: No Do you have trouble taking care of your child, family member or friend?: No Do you have trouble with day-to-day activities such as bathing, preparing meals, shopping, managing finances, etc.?: No Are you currently unemployed and looking for a job?: No Are you interested in more education?: No Please select the resources that you would like help with: None Currently or been in a relationship where the following occur: no concerns reported THRIVE Score: 0 AUDIT C Alcohol Use Questionnaire (AUDIT-C) 1. How often do you have a drink containing alcohol?: Never 3. How often do you have six or more drinks on one occasion?: Never Total Score: 0 CASSIA-7 AMB Questionnaire CASSIA-7 Date CASSIA - 7 assessed: 07/26/23 Feeling nervous, anxious, or on edge: 0 = Not at all Not being able to stop or control worryin = Not at all Worrying too much about different things: 0 = Not at all Trouble relaxin = Not at all Being so restless that it is hard to sit still: 0 = Not at all Becoming easily annoyed or irritable: 0 = Not at all Feeling afraid as if something awful might happen: 0 = Not at all Total CASSIA-7 score (0-4 normal; 5-9 mild; 10-14 moderate; 15-21 severe): 0 Source: Developed by Drs. Augie Acosta, Radha Echavarria, Eros Robbins and colleagues, with an educational juli from [employer]. CASSIA-7 Assessment Billing CASSIA-7 Assessment Tool: CASSIA-7 Assessment 08861 Review of Systems Const Denies headache(s) Eyes Denies loss of vision ENT Denies vertigo, Reports dizziness, Denies headache(s) and Denies sore throat Card Reports chest pain, Denies leg edema and Denies lightheadedness Resp Denies cough, Denies hemoptysis and Denies wheezing GI Denies abdominal pain, Denies melena, Denies constipation, Denies diarrhea and Denies vomiting Denies dysuria, Denies urinary frequency and Denies urinary urgency Musc Denies arthralgias, Denies joint swelling, Denies numbness and Denies tingling Neuro Denies Abnormal speech present, Denies behavioral changes, Denies vertigo, Reports dizziness, Denies headache(s), Denies loss of vision, Denies memory loss, Denies numbness and Denies tingling Psych Reports anxiety, Denies behavioral changes, Denies depression, Denies memory loss and Reports panic attacks Jarad/Lymph Denies easy bleeding and Denies easy bruising Aller/Immun Denies wheezing Physical exam (Primary Care) Vital Signs: Last Vital Signs Pulse 70 07/26/23 09:39 BP 102/78 07/26/23 09:39 Pulse Ox 98 07/26/23 09:39 Oxygen Delivery Method Room Air 07/26/23 09:39 BMI result Body Mass Index 29.3 Tobacco/Smoking Status: Tobacco use Status Tobacco use date assessed 07/26/23 07/26/23 09:44 Patient Tobacco Use Status Former Tobacco user 07/26/23 09:40 e-Cigarette/Vaping Use Never Used 07/26/23 09:40 PHQ-9: PHQ-9 Score PHQ-9: Total score 0 07/26/23 10:00 Depression Screening Interpretation: Negative Thrive Assessment: Date of Thrive Assessment Date Thrive assessed 07/26/23 07/26/23 09:54 Currently or been in a relationship where the following occur: no concerns reported Const General: healthy appearing, no acute distress, alert and awake Nutritional Appearance: well nourished Orientation/consciousness: oriented to person, oriented to place and oriented to time HENMT Ears: TM's normal bilaterally General nose exam: Normal nasal mucous membranes and turbinates present Eyes Conjunctivae: conjunctivae normal Sclerae: sclerae normal Pupils: Equal, round and reactive pupils present Neck Neck: Yes no lymphadenopathy and Yes no JVD Thyroid: Thyroid normal Carotids: no bruits Resp Effort & Inspection: normal respiratory effort and not tachypneic Auscultation: no crackles, no rales, no rhonchi and no wheezes Cardio Rate: regular rate Rhythm: regular rhythm Heart sounds: no murmurs and normal S1 and S2 GI Palpation (GI): Soft to palpation, nontender, no hepatomegaly and no splenomegaly Auscultation: normal bowel sounds Skin General skin exam: no rashes or lesions noted and dry skin Neuro General: oriented to person, oriented to place and oriented to time Cranial nerves: Yes Equal, round and reactive pupils present Speech: No Abnormal speech present Gait exam (Neuro): Normal gait present Motor exam (neuro): no tremor noted Extrem Right upper extremity: full ROM Left upper extremity: full ROM Right lower extremity: full ROM; no edema Left lower extremity: full ROM; no edema Psych Mental Status: mental status grossly normal Speech and movement: Normal speech and movement present Affect: normal affect Attitude: cooperative Thought process: Normal thought process present Assessment and Plan Assessment & Plan (1) Hypertriglyceridemia: Code(s): E78.1 - Pure hyperglyceridemia Plan: Patient continues on fenofibrate and niacin 500 daily. Has stopped statin due to polyarthralgia side effects. Has not followed up with endocrinology in quite a while. Will recheck fasting lipid panel (2) Heart palpitations: Code(s): R00.2 - Palpitations Plan: Continues to have heart palpitations worse at night while lying down on his left side. He reports during this episode he does have shortness of breath and triggers his anxiety. He does have an IVC filter placed that is apparently has migrated in his broken. Has seen cardiovascular specialty in the past and apparently too risky to take out. He is interested in a 2nd opinion with Cardiovascular specialty (3) Presence of IVC filter: Code(s): Z95.828 - Presence of other vascular implants and grafts (4) FREDDIE (obstructive sleep apnea): Code(s): G47.33 - Obstructive sleep apnea (adult) (pediatric) (5) Witnessed episode of apnea: Code(s): R06.81 - Apnea, not elsewhere classified (6) Rhinitis medicamentosa: Code(s): J31.0 - Chronic rhinitis; T48.5X5A - Adverse effect of other axou-oxmbeg-hidq drugs, initial encounter Plan: Has been using decongestant nasal spray for many years now. Does have an dependence to this nasal spray. Will try new nasal spray and prednisone temporarily to help reduce nasal congestion. Orders: Orders RT home sleep study Today G47.33 - Obstructive sleep apnea (adult) (pediatric), R06.81 - Apnea, not elsewhere classified Lipid Panel Today E78.1 - Pure hyperglyceridemia Lipase Today K85.80 - Other acute pancreatitis without necrosis or infection Comprehensive [place]. Panel Fast Today E78.1 - Pure hyperglyceridemia Referrals Cardiology Referral R00.2 - Palpitations, Z95.828 - Presence of other vascular implants and grafts Medications: New ipratropium bromide administer into each nostril 2 sprays intranasal TID 30 days 15 mL 3RF J31.0 - Chronic rhinitis, T48.5X5A - Adverse effect of other krtp-ewiggg-azef drugs, initial encounter prednisone 20 mg PO DAILY 4 days 4 tabs 0RF R06.02 - Shortness of breath Refilled omeprazole 40 mg PO DAILY PRN 90 caps 2RF Acid Reflux E78.1 - Pure hyperglyceridemia niacin ER 500 mg (2 x 250 mg) PO DAILY 90 days 180 tabs 1RF E78.1 - Pure hyperglyceridemia, K85.80 - Other acute pancreatitis without necrosis or infection fenofibrate 160 mg PO DAILY 90 days 90 tabs 3RF E78.1 - Pure hyperglyceridemia Discontinued albuterol sulfate 90 mcg/actuation (Ventolin HFA) Discontinued Reason: Doctor's Order 1 puff inhalation QID 30 days 8.5 grams 3RF R06.02 - Shortness of breath atorvastatin (Lipitor) Discontinued Reason: Doctor's Order 40 mg PO BEDTIME 30 tabs 3RF Coding Level of Care Code Est Pt Level 4 (40826) Diagnoses Hypertriglyceridemia E78.1 Heart palpitations R00.2 Presence of IVC filter Z95.828 FREDDIE (obstructive sleep apnea) G47.33 Witnessed episode of apnea R06.81 Rhinitis medicamentosa J31.0; T48.5X5A Additional Codes CASSIA-7 Assessment Billing - CASSIA-7 Assessment Tool: CASSIA-7 Assessment 26649 ([id number])
== END 2023-07-26 10:19 | disposition home or self-care (01) ==
PROVIDERS: PCP Physician Assistant; Visit Provider Physician Assistant
DX: E78.1 Pure hyperglyceridemia (principal); R00.2 Palpitations; Z95.828 Presence of other vascular implants and grafts; G47.33 Obstructive sleep apnea (adult) (pediatric); R06.81 Apnea, not elsewhere classified; J31.0 Chronic rhinitis; T48.5X5A Adverse effect of other anti-common-cold drugs, initial encounter
CPT/HCPCS: 99214

== ENCOUNTER 2023-07-26 10:39 | Outpatient (REF) | payer OTHER, SELFPAY ==
[2023-07-26 14:46] LABS: Alanine Aminotransferase 41 U/L (0-40); Albumin Level 4.2 g/dL (3.5-5.0); Alkaline Phosphatase 96 U/L (39-117); Anion Gap 16 (12-20); Aspartate Amino Transferase 44 U/L (5-37); Bilirubin Total 0.5 mg/dL (0.0-1.0); Blood Urea Nitrogen 10 mg/dL (9-16); Calcium 9.5 mg/dL (8.4-10.2); Carbon Dioxide 20 mmol/L (22-29); Chloride 104 mmol/L (96-108); Cholesterol 248 mg/dL (<200); Estimated Glomerular Filt Rate > 60; Glucose Fasting 94 mg/dL (60-99); HDL Cholesterol 28 mg/dL (>40); Lipase 46 U/L (8-78); Sodium 136 mmol/L (135-145); Total Protein 7.7 g/dL (6.5-8.0); Triglycerides 1201 mg/dL (<150)
== END 2023-07-26 10:40 | disposition home or self-care (01) ==
LOC: HO.10HDL 10:39
PROVIDERS: Visit Provider Physician Assistant
DX: E78.1 Pure hyperglyceridemia (principal); K85.80 Other acute pancreatitis without necrosis or infection
CPT/HCPCS: 36415; 80053; 80061; 83690

== ENCOUNTER 2023-08-30 09:36 | Outpatient (AMB) | payer OTHER, SELFPAY ==
--- NOTE | 2023-08-30 10:41 | MHC.OFFWIV ---
Intake Vital Signs 08/30/23 10:48 Weight 203 lb 4 oz BP 118/78 Blood Pressure Location Rt brachial Position Sitting Pulse 92 Pulse Source Pulse Oximeter Pulse Oximetry (%) 98 Oxygen Delivery Method Room Air Intake Visit Reasons: EST/stomach cramping ([phone]) Intake Note: Patient here for diarrhea that has been going on for about 2 days Patient Tobacco Use Status: Former Tobacco user Allergies cetirizine [From Zyrtec] Adverse Reaction (Mild, Verified 08/30/23 10:42) Nightmare lactose Adverse Reaction (Unknown, Verified 08/30/23 10:42) Diarrhea Do you need a note to return to daycare/school/sports/work: Yes HPI HPI Comments History of Present Illness Details 43 y/o male patient who presents to walk in clinic with c/o Diarrhea. Pt ate at a [employer] restaurant. H/O Chrohs disease and UC. He is currently managed by GI. Pt has Ileostomy bag. Pt also c/o infection on his Penile head. [facility] Medical History Presence of IVC filter Transaminitis Hypertriglyceridemia Sinusitis Inflammatory bowel diseases (IBD) Ulcerative colitis Sleep disorder breathing Infection of lip Lumbar disc herniation with radiculopathy Right knee injury Injury of lumbar spine Infected nasal abrasion Presence of ileostomy Lumbar radiculopathy, chronic HLD (hyperlipidemia) Constipation by delayed colonic transit Annual physical exam Allergic rhinitis Obesity Colitis Zinc deficiency B12 deficiency Vitamin D deficiency Chronic nasal congestion Nasal sinus congestion Obese Low libido GERD without esophagitis H/O deep venous thrombosis H/O acute pancreatitis CASSIA (generalized anxiety disorder) Hypertriglyceridemia Surgical History History of ileostomy History of colectomy History of ileostomy History of resection of rectum Family History Father CVD (cardiovascular disease) Mother Hypertension Diabetes Maternal Grandmother Liver cancer Maternal Grandfather CVD (cardiovascular disease) Family/Other Diabetes Social History Household Members: Other Household Members Other:: girlfriend and children Housing: House Do you presently have visiting nurse or other home services: No Alcohol intake: never Patient Tobacco Use Status: Former Tobacco user e-Cigarette/Vaping Use: Never Used Substance Use Type: Marijuana service: No Current occupational status: disabled Cognitive needs: No Hearing needs: No Vision needs: No Review of Systems Const All systems reviewed & are unremarkable except as noted in HPI and below Physical Exam Vital Signs: Last Vital Signs Pulse 92 08/30/23 10:48 BP 118/78 08/30/23 10:48 Pulse Ox 98 08/30/23 10:48 Oxygen Delivery Method Room Air 08/30/23 10:48 Const General: comfortable and no acute distress Orientation/consciousness: patient oriented x3 Resp Effort & Inspection: normal respiratory effort GI Inspection: Yes other (Ileostomy Bag present) Palpation (GI): Soft to palpation Auscultation: normal bowel sounds Rectal Exam - Male: Yes deferred Other: Differed examination. Neuro General: patient oriented x3 Gait exam (Neuro): Normal gait present Assessment & Plan Assessment & Plan (1) Diarrhea: Code(s): R19.7 - Diarrhea, unspecified Qualifiers: Diarrhea type: unspecified type Qualified Code(s): R19.7 - Diarrhea, unspecified Plan: - BLAND diet - Hydrate well with plenty of fluids. - OTC Imodium (2) Balanitis: Code(s): N48.1 - Balanitis Plan: - Use the cream as directed. - Keep fore-skin clean Medications: New clotrimazole 1% 1 appl topical BID 2 weeks 15 grams 0RF N48.1 - Balanitis Coding Level of Care Code Est Pt Level 3 (59073) Diagnoses Diarrhea, unspecified type R19.7 Diarrhea type: unspecified type Balanitis N48.1 Time Spent (min) 15
[2023-08-30 10:48] VITALS: BP 118/78; PULSE 92; O2SAT 98
== END 2023-08-30 12:03 | disposition home or self-care (01) ==
PROVIDERS: PCP Physician Assistant; Visit Provider Nurse Practitioner Family
DX: R19.7 Diarrhea, unspecified (principal); N48.1 Balanitis
CPT/HCPCS: 99213

== ENCOUNTER 2023-09-12 13:56 | Outpatient (AMB) | payer OTHER, SELFPAY ==
[2023-09-12 14:00] VITALS: BP 126/72; PULSE 74; RESP 16; O2SAT 98; BMI 29.4
--- NOTE | 2023-09-12 14:00 | MHC.PC.OV ---
Vital Signs 09/12/23 14:00 Height 5 ft 10 in Weight 205 lb 4 oz BMI 29.4 BP 126/72 Blood Pressure Location Lt brachial Position Sitting Respiration 16 Pulse 74 Pulse Source Pulse Oximeter Pulse Oximetry (%) 98 Oxygen Delivery Method Room Air Intake Visit Reasons: 2 months Intake Note: Patient is here today for a physical. Die Barber Required: No Accompanied by: Self / Same As Patient All[facility]ies [facility] Adverse Reaction (Mild, Verified 09/12/23 14:15) Nightmare lactose Adverse Reaction (Unknown, Verified 09/12/23 14:15) Diarrhea Medication List - Last Reconciled 09/12/23 by Dayton Gould PA-C clotrimazole 1% 1 appl topical BID 2 weeks colostomy-Ileost.set,nonsteril (Premier Colostomy-Ileostomy) As directed fenofibrate 160 mg PO DAILY 90 days ibuprofen 800 mg PO Q8H 30 days ipratropium bromide 2 sprays intranasal TID 30 days niacin ER 500 mg (2 x 250 mg) PO DAILY 90 days omeprazole 40 mg PO DAILY PRN ostomy adhesive (Stomahesive Paste) As directed ostomy supplies (Skin Prep Wipes) As directed Tobacco use date assessed: 07/26/23 Dental Screening Dental Screen Date: 09/12/23 Did you have a dental visit in the last 12 months?: Yes Did you have a dental problem in the last 6 months where you did not have access to dental care?: No Was dental information given to patient?: Patient has dentist HPI 2 months HPI Details Patient is a 43-year-old male here today for PE. Patient has a past medical history significant for hypertriglyceridemia, GERD, status post colectomy and and has colostomy bag. Concern--> reports he has developed phimosis again. Was treated with antifungal topical treatment in the past. Also he has followed up with an purchasing specialist due to his chronic sinusitis and rhinorrhea and had gotten a CT of the sinuses that did show nasal polyps. Recommendations have been made to see an ENT specialist for nasal polyp removal. IVC filter place: Has had trouble lying down on his left side as he feels he is suffocating and feels a tight pressure in his chest. He attributes this to his IVC filter that apparently has migrated in his broken. 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 He would like a 2nd opinion with cardiology clinical nurse specialist in [place]. Of note he was apparently supposed to have an obstructive sleep apnea test though has not been able to schedule due to long work hours. Hypertriglyceridemia: Was followed by Endocrinology and has upcoming appointment in August of 2023. Continues on niacin and fenofibrate. He reports he stopped using atorvastatin as it is causing him some polyarthralgia. PLAN: Will recheck fasting lipid panel. .. Status post colostomy bag: Continues with colostomy bag indefinitely. He does require frequent (up to 10) bathroom breaks to empty his colostomy bag as it does fill up quick from liquid he is drinking at work. He reports his colostomy bag is functioning well Vaccines: Up-to-date with COVID, pneumonia, tetanus vaccines. [facility] Medical History (Updated 09/13/23 @ 07:41 by Dayton Gould PA-C) Presence of ileostomy Annual physical exam Presence of IVC filter Transaminitis Hypertriglyceridemia Sinusitis Inflammatory bowel diseases (IBD) Ulcerative colitis Sleep disorder breathing Infection of lip Lumbar disc herniation with radiculopathy Right knee injury Injury of lumbar spine Infected nasal abrasion Lumbar radiculopathy, chronic HLD (hyperlipidemia) Constipation by delayed colonic transit Allergic rhinitis Obesity Colitis Zinc deficiency B12 deficiency Vitamin D deficiency Chronic nasal congestion Nasal sinus congestion Obese Low libido GERD without esophagitis H/O deep venous thrombosis H/O acute pancreatitis CASSIA (generalized anxiety disorder) Hypertriglyceridemia Surgical History History of ileostomy History of colectomy History of ileostomy History of resection of rectum Family History Father CVD (cardiovascular disease) Mother Hypertension Diabetes Maternal Grandmother Liver cancer Maternal Grandfather CVD (cardiovascular disease) Family/Other Diabetes Social History (Updated 09/12/23 @ 14:19 by Dayton Gould PA-C) Household Members: Other Household Members Other:: girlfriend and children Housing: House Do you presently have visiting nurse or other home services: No Alcohol intake: never Patient Tobacco Use Status: Former Tobacco user e-Cigarette/Vaping Use: Never Used Substance Use Type: Marijuana service: No Current occupational status: employed Current occupation: [employer] Cognitive needs: No Hearing needs: No Vision needs: No Questionnaire Thrive Questionnaire Date Thrive assessed: 07/26/23 CASSIA-7 AMB Questionnaire CASSIA-7 Date CASSIA - 7 assessed: 07/26/23 Source: Developed by Drs. Augie Acosta, Radha Echavarria, Eros Robbins and colleagues, with an educational juli from [employer]. Review of Systems Const Denies body aches, Denies chills, Denies excessive sweating, Denies fatigue, Denies fever(s) and Denies headache(s) Eyes Denies blurry vision ENT Denies dysphagia, Denies vertigo, Denies dizziness, Denies headache(s), Denies hearing loss and Denies tinnitus Card Denies chest pain, Denies chest pain with activity, Denies syncope, Denies irregular heart rhythm and Denies dyspnea Resp Denies chest congestion, Denies cough, Denies hemoptysis, Denies dyspnea and Denies wheezing GI Denies abdominal pain, Denies melena, Denies hematochezia, Denies coffee ground emesis, Denies dysphagia, Denies diarrhea, Denies nausea and Denies vomiting Denies difficulty urinating, Denies dysuria, Denies urinary frequency, Denies urinary hesitancy and Denies urinary urgency Musc Denies arthralgias, Denies limited range of motion, Denies muscle cramps and Denies muscle weakness Skin/Breast Denies rash and Denies skin ulcer Neuro Denies Abnormal speech present, Denies confusion, Denies vertigo, Denies dizziness, Denies syncope, Denies headache(s), Denies memory loss and Denies seizure-like activity Psych Denies anxiety, Denies confusion, Denies depression, Denies memory loss, Denies panic attacks and Denies paranoia Endo Denies excessive sweating, Denies fatigue, Denies flushing, Denies polydipsia and Denies polyuria Aller/Immun Denies wheezing Physical exam (Primary Care) Vital Signs: Last Vital Signs Pulse 74 09/12/23 14:00 Resp 16 09/12/23 14:00 BP 126/72 09/12/23 14:00 Pulse Ox 98 09/12/23 14:00 Oxygen Delivery Method Room Air 09/12/23 14:00 BMI result Body Mass Index 29.4 Tobacco/Smoking Status: Tobacco use Status Tobacco use date assessed 07/26/23 09/12/23 14:00 Patient Tobacco Use Status Former Tobacco user 09/12/23 14:19 e-Cigarette/Vaping Use Never Used 09/12/23 14:19 Thrive Assessment: Date of Thrive Assessment Date Thrive assessed 07/26/23 09/12/23 14:00 Const General: cooperative, comfortable, no acute distress, alert and awake; No confusion Orientation/consciousness: oriented to person, oriented to place, patient oriented x3 and No confusion HENMT Head: Yes normocephalic Ears: external ears normal and TM's normal bilaterally Face and sinus: No sinus tenderness Mouth: Normal oral and palatal mucosa present and tongue normal Teeth and gingiva: dentition normal and gingiva normal Throat: Yes posterior oropharynx normal, Yes tonsils normal and Yes uvula midline Eyes Conjunctivae: conjunctivae normal Sclerae: sclerae normal Pupils: Equal, round and reactive pupils present EOM: EOMs intact bilaterally Direct Ophthalmoscopy: No no photophobia Neck Neck: Yes no lymphadenopathy, No tender and Yes no JVD Thyroid: Thyroid normal Carotids: no bruits Chest Chest palpation & inspection: no tenderness Resp Effort & Inspection: normal respiratory effort, no audible wheezes, not labored and no stridor Auscultation: no crackles, no rales, no rhonchi and no wheezes Cardio Jugular venous distension: no JVD Rate: regular rate, not bradycardic and not tachycardic Rhythm: regular rhythm Bruits: no carotid bruits Peripheral pulses: Peripheral pulses 2+ throughout GI Inspection: Yes normal to inspection, No abdominal wall ecchymosis and No visible herniation Palpation (GI): Soft to palpation, nontender, no guarding, not rigid and No hepatosplenomegaly present Auscultation: normoactive bowel sounds General: Yes no CVA tenderness Back/Spine/Pelvis Back: no CVA tenderness and No back tenderness Cervical Spine: cervical ROM normal Thoracic/Lumbar Spine: thoracic and lumbar spine normal to inspection, straight leg raise negative bilaterally, No thoraco-lumbar ROM limited and No lumbar spinal tenderness Skin Lesions: no lesions Rashes: no rashes Wounds: no wounds Neuro General: oriented to person, oriented to place, patient oriented x3, CN's II-XI intact bilaterally and No confusion Cranial nerves: Yes Equal, round and reactive pupils present and Yes Normal accommodation reflex present Cognition (Neuro): normal cognition Speech: No Abnormal speech present Gait exam (Neuro): Normal gait present Motor exam (neuro): 5/5 motor strength present throughout Extrem Right upper extremity: full ROM; no cyanosis Left upper extremity: full ROM; no cyanosis Right lower extremity: no edema Left lower extremity: no edema Psych Appearance: grossly normal Mental Status: mental status grossly normal Affect: normal affect Attitude: cooperative Thought process: Normal thought process present Assessment and Plan Assessment & Plan (1) Annual physical exam: Code(s): Z00.00 - Encounter for general adult medical examination without abnormal findings (2) Hypertriglyceridemia: Code(s): E78.1 - Pure hyperglyceridemia Plan: Patient continues on fenofibrate and niacin 500 daily. Has stopped statin due to polyarthralgia side effects. Has not followed up with endocrinology in quite a while and has upcoming appointment. Will recheck fasting lipid panel (3) Presence of IVC filter: Code(s): Z95.828 - Presence of other vascular implants and grafts Plan: As per HPI (4) Rhinitis medicamentosa: Code(s): J31.0 - Chronic rhinitis; T48.5X5A - Adverse effect of other [id number] drugs, initial encounter Plan: He has followed up with office services specialist whom did CT of sinuses and found nasal polyps. They recommended to see ENT surgeon for possible removal of nasal polyps which may help his nasal congestion. Otherwise he continues on daily use of Afrin.. (5) Nasal polyp: Code(s): J33.9 - Nasal polyp, unspecified Plan: As above (6) Phimosis: Code(s): N47.1 - Phimosis Plan: Needs antifungal cream and pill. Has history of phimosis (7) Ulcerative colitis: Code(s): K51.90 - Ulcerative colitis, unspecified, without complications Qualifiers: Ulcerative colitis location: unspecified ulcerative colitis location Digestive disease complication type: with abscess Qualified Code(s): K51.914 - Ulcerative colitis, unspecified with abscess Plan: Has a history of inflammatory bowel disease requiring the permanent placement of a ileostomy in early 1999 (8) Presence of ileostomy: Code(s): Z93.2 - Ileostomy status Plan: As above patient had history of inflammatory bowel disease which was complicated by abscess requiring up permanent placement of an ileostomy bag. Orders: Orders Comprehensive [place]. Panel Fast 09/12/23 E78.1 - Pure hyperglyceridemia Lipid Panel 09/12/23 E78.1 - Pure hyperglyceridemia Lipase 09/12/23 K85.80 - Other acute pancreatitis without necrosis or infection Referrals Ear/Nose/Throat Referral J33.9 - Nasal polyp, unspecified Medications: New fluconazole 150 mg PO Q3D 2 tabs 0RF N47.1 - Phimosis clotrimazole-betamethasone 1-0.05 % 1 appl topical BID 30 days 45 grams 1RF N47.1 - Phimosis Coding Level of Care Code Est Pt Prev Care 40-64y(40024) Diagnoses Annual physical exam Z00.00 Hypertriglyceridemia E78.1 Presence of IVC filter Z95.828 Rhinitis medicamentosa J31.0; T48.5X5A Nasal polyp J33.9 Phimosis N47.1 Ulcerative colitis with abscess, unspecified location K51.914 Ulcerative colitis location: unspecified ulcerative colitis location Digestive disease complication type: with abscess Presence of ileostomy Z93.2
== END 2023-09-12 14:39 | disposition home or self-care (01) ==
PROVIDERS: PCP Physician Assistant; Visit Provider Physician Assistant
DX: Z00.00 Encounter for general adult medical examination without abnormal findings (principal); N47.1 Phimosis; Z93.3 Colostomy status; Z95.828 Presence of other vascular implants and grafts; E78.1 Pure hyperglyceridemia; J31.0 Chronic rhinitis; T48.5X5A Adverse effect of other anti-common-cold drugs, initial encounter; J33.9 Nasal polyp, unspecified
CPT/HCPCS: 99396

== ENCOUNTER → 2023-10-02 08:00 | Outpatient (BNV) | payer OTHER, SELFPAY | PROVIDERS: PCP Physician Assistant; Visit Provider Psychiatry & Neurology Neurology | DX: R06.83 Snoring (principal) | CPT/HCPCS: 95806 ==

== ENCOUNTER → 2023-10-02 13:13 | Outpatient (REF) | payer OTHER, SELFPAY | LOC: HO.SL 13:13 | PROVIDERS: PCP Physician Assistant; Visit Provider Physician Assistant | DX: G47.33 Obstructive sleep apnea (adult) (pediatric) (principal) | CPT/HCPCS: 95806 ==

== ENCOUNTER 2023-10-08 11:02 | Outpatient (AMB) | payer OTHER, SELFPAY ==
[2023-10-08 11:24] VITALS: BP 120/72; PULSE 83; TEMP 36.4; O2SAT 97; BMI 29.8
--- NOTE | 2023-10-08 11:24 | MHC.OFFWIV ---
Intake Vital Signs 10/08/23 11:24 Height 5 ft 10 in Weight 208 lb BMI 29.8 BP 120/72 Blood Pressure Location Lt brachial Position Sitting Pulse 83 Pulse Source Pulse Oximeter Temp 97.6 F Temp Source Temporal Artery Scan Pulse Oximetry (%) 97 Oxygen Delivery Method Room Air Intake Visit Reasons: EP Pain when urinating/Lower AB/Back Intake Note: pt is here today for pain when urinating lower AB and back started 1 week ago Patient Tobacco Use Status: Former Tobacco user Allergies cetirizine [From [facility]] Adverse Reaction (Mild, Verified 10/08/23 12:44) Nightmare lactose Adverse Reaction (Unknown, Verified 10/08/23 12:44) Diarrhea Medication List - Last Reconciled 10/08/23 by Damian Gutierres MD colostomy-Ileost.set,nonsteril (Premier Colostomy-Ileostomy) As directed fenofibrate 160 mg PO DAILY 90 days niacin ER 500 mg (2 x 250 mg) PO DAILY 90 days omeprazole 40 mg PO DAILY PRN ostomy adhesive (Stomahesive Paste) As directed ostomy supplies (Skin Prep Wipes) As directed Do you need a note to return to daycare/school/sports/work: Yes HPI EP Pain when urinating/Lower AB/Back HPI Details 43-year-old male presents to the office for a sick visit. He is complaining of lower back pain for the past week. Patient works at [employer]. 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 He also reported increased frequency of urination at night. No burning on urination. No fevers or chills. Patient gives past history of ulcerative colitis and Crohn's disease. He has a permanent ileostomy bag. [facility] Medical History (Updated 09/13/23 @ 07:41 by Dayton Gould PA-C) Presence of ileostomy Annual physical exam Presence of IVC filter Transaminitis Hypertriglyceridemia Sinusitis Inflammatory bowel diseases (IBD) Ulcerative colitis Sleep disorder breathing Infection of lip Lumbar disc herniation with radiculopathy Right knee injury Injury of lumbar spine Infected nasal abrasion Lumbar radiculopathy, chronic HLD (hyperlipidemia) Constipation by delayed colonic transit Allergic rhinitis Obesity Colitis Zinc deficiency B12 deficiency Vitamin D deficiency Chronic nasal congestion Nasal sinus congestion Obese Low libido GERD without esophagitis H/O deep venous thrombosis H/O acute pancreatitis CASSIA (generalized anxiety disorder) Hypertriglyceridemia Surgical History History of ileostomy History of colectomy History of ileostomy History of resection of rectum Family History Father CVD (cardiovascular disease) Mother Hypertension Diabetes Maternal Grandmother Liver cancer Maternal Grandfather CVD (cardiovascular disease) Family/Other Diabetes Social History (Updated 09/12/23 @ 14:19 by Dayton Gould PA-C) Household Members: Other Household Members Other:: girlfriend and children Housing: House Do you presently have visiting nurse or other home services: No Alcohol intake: never Patient Tobacco Use Status: Former Tobacco user e-Cigarette/Vaping Use: Never Used Substance Use Type: Marijuana service: No Current occupational status: employed Current occupation: [employer] Cognitive needs: No Hearing needs: No Vision needs: No Physical Exam Vital Signs: Last Vital Signs Temp 97.6 F 10/08/23 11:24 Pulse 83 10/08/23 11:24 BP 120/72 10/08/23 11:24 Pulse Ox 97 10/08/23 11:24 Oxygen Delivery Method Room Air 10/08/23 11:24 BMI result Body Mass Index 29.8 GI Other: Ileostomy bag in place. Back/Spine/Pelvis Other: No CVA tenderness. No spinal tenderness. No paraspinal spasm. Results AMB Urinalysis, Automated UA Leukoctes 0 Guera/uL Last Edit by Lily Ro CMA on 10/08/23 11:42 UA Nitrite Negative Last Edit by Lily Ro CMA on 10/08/23 11:42 UA Urobilinogen 0.2 mg/dL Last Edit by Lily Ro CMA on 10/08/23 11:42 UA Protein 0 mg/dL Last Edit by Lily Ro CMA on 10/08/23 11:42 UA pH 5.0 Last Edit by Lily Ro CMA on 10/08/23 11:42 UA Blood 0 Peyman/uL Last Edit by Lily Ro CMA on 10/08/23 11:42 UA Specific [place] 1.025 Last Edit by Lily Ro CMA on 10/08/23 11:42 UA Ketone Negative Last Edit by Lily Ro CMA on 10/08/23 11:42 UA Bilirubin 0 mg/dL Last Edit by Lily Ro CMA on 10/08/23 11:42 UA Glucose 0 mg/dL Last Edit by Lily Ro CMA on 10/08/23 11:42 Results Reviewed Results Reviewed: Laboratory Last Values Urine pH (Auto) 5.0 10/08/23 11:41 Specific [place] (Auto) 1.025 10/08/23 11:41 Urine Protein (Auto) 0 mg/dL 10/08/23 11:41 Glucose (UA)(Auto) 0 mg/dL 10/08/23 11:41 Urine Ketones (Auto) Negative 10/08/23 11:41 Urine Blood (Auto) 0 [place]/uL 10/08/23 11:41 Urine Nitrite (Auto) Negative 10/08/23 11:41 Urine Bilirubin (Auto) 0 mg/dL 10/08/23 11:41 Urine Urobilinogen (Auto) 0.2 mg/dL 10/08/23 11:41 Leukocyte Esterase (Auto) 0 Gu[place]/uL 10/08/23 11:41 Assessment & Plan Assessment & Plan (1) Low back pain: Code(s): M54.50 - Low back pain, unspecified Plan: NSAIDS and Cyclobenzaprine called in. Urinalysis revd. No evidence of infection Orders: Orders AMB Urinalysis Automated Today Z13.9 - Encounter for screening, unspecified Coding Level of Care Code Est Pt Level 3 (26860) Diagnoses Low back pain M54.50
== END 2023-10-08 13:10 | disposition home or self-care (01) ==
PROVIDERS: PCP Physician Assistant; Visit Provider Internal Medicine
DX: M54.50 Low back pain, unspecified (principal); Z13.9 Encounter for screening, unspecified
CPT/HCPCS: 81003; 99213

== ENCOUNTER 2023-10-15 08:23 | Outpatient (AMB) | payer OTHER, SELFPAY ==
[2023-10-15 08:43] VITALS: BP 132/70; PULSE 90; TEMP 37.1; O2SAT 97; BMI 29.4
--- NOTE | 2023-10-15 08:43 | MHC.OFFWIV ---
Intake Vital Signs 10/15/23 08:43 Height 5 ft 10 in Weight 205 lb BMI 29.4 BP 132/70 Blood Pressure Location Lt brachial Position Sitting Pulse 90 Pulse Source Pulse Oximeter Temp 98.8 F Temp Source Temporal Artery Scan Pulse Oximetry (%) 97 Oxygen Delivery Method Room Air Intake Visit Reasons: EP body pain cough congestion [id number] Intake Note: pt is here today for body pain cough congestions started 2 days ago Patient Tobacco Use Status: Former Tobacco user Allergies cetirizine [From [facility], [place]] Adverse Reaction (Mild, Verified 10/15/23 08:44) Nightmare lactose Adverse Reaction (Unknown, Verified 10/15/23 08:44) Diarrhea Do you need a note to return to daycare/school/sports/work: Yes HPI HPI Comments History of Present Illness Details Patient presents to the walk in for 2 days cough, congestion, fatigue No known sick contacts Denies fever, chest pain, shortness of breath, palpitations, syncope, weakness Has been taking Tylenol Motrin without improvement. [facility] Medical History (Updated 10/15/23 @ 09:14 by Conchita Maria, TECHNOLOGY ADMINISTRATOR, [employer]F [employer]) Presence of ileostomy Annual physical exam Presence of IVC filter Transaminitis Hypertriglyceridemia Sinusitis Inflammatory bowel diseases (IBD) Ulcerative colitis Sleep disorder breathing Infection of lip Lumbar disc herniation with radiculopathy Right knee injury Injury of lumbar spine Infected nasal abrasion Lumbar radiculopathy, chronic HLD (hyperlipidemia) Constipation by delayed colonic transit Allergic rhinitis Obesity Colitis Zinc deficiency B12 deficiency Vitamin D deficiency Chronic nasal congestion Nasal sinus congestion Obese Low libido GERD without esophagitis H/O deep venous thrombosis H/O acute pancreatitis CASSIA (generalized anxiety disorder) Hypertriglyceridemia Surgical History History of ileostomy History of colectomy History of ileostomy History of resection of rectum Family History Father CVD (cardiovascular disease) Mother Hypertension Diabetes Maternal Grandmother Liver cancer Maternal Grandfather CVD (cardiovascular disease) Family/Other Diabetes Social History (Updated 09/12/23 @ 14:19 by Dayton Gould PA-C) Household Members: Other Household Members Other:: girlfriend and children Housing: House Do you presently have visiting nurse or other home services: No Alcohol intake: never Patient Tobacco Use Status: Former Tobacco user e-Cigarette/Vaping Use: Never Used Substance Use Type: Marijuana service: No Current occupational status: employed Current occupation: [employer] Cognitive needs: No Hearing needs: No Vision needs: No Review of Systems Const All systems reviewed & are unremarkable except as noted in HPI and below Physical Exam Vital Signs: Last Vital Signs Temp 98.8 F 10/15/23 08:43 Pulse 90 10/15/23 08:43 BP 132/70 10/15/23 08:43 Pulse Ox 97 10/15/23 08:43 Oxygen Delivery Method Room Air 10/15/23 08:43 BMI result Body Mass Index 29.4 General: awake, alert, oriented. Answers questions appropriately. Fully engaged in examination. Skin: warm, dry, intact HEENT: TMs intact bilaterally, without erythema. Posterior pharynx without erythema or exudate. Sclera without icterus or injection. Cardiac: External chest normal in appearance. RRR Respiratory: +cough. LSCTAB. Abdomen: without gross distension. Neurological: Oriented to person, place, time and situation. Thought process intact. Psychiatric: Appropriate mood and affect. Good judgment and insight. Assessment & Plan Assessment & Plan (1) URI (upper respiratory infection): Code(s): J06.9 - Acute upper respiratory infection, unspecified Plan URI, no abx warranted. SARS-CoV2/FLU/RSV swab collected, results pending. Patient aware he will be called with results. Benzonatate 100mg po bid as needed Rest, drink plenty of fluids, tylenol or motrin as needed. Follow up with pcp or in clinic for any new or worsening symptoms. Go to ER for shortness of breath, chest pain, palpitations, weakness, dizziness. Orders: Orders SARS-CoV2/FLU/RSV Today J06.9 - Acute upper respiratory infection, unspecified Medications: New benzonatate 100 mg PO BID PRN 20 caps 0RF cough Coding Level of Care Code Est Pt Level 3 (00591) Diagnoses URI (upper respiratory infection) J06.9
== END 2023-10-15 09:41 | disposition home or self-care (01) ==
PROVIDERS: PCP Physician Assistant; Visit Provider Registered Nurse Emergency
DX: J06.9 Acute upper respiratory infection, unspecified (principal)
CPT/HCPCS: 99213

== ENCOUNTER 2023-10-15 09:10 | Outpatient (REF) | payer OTHER, SELFPAY ==
[2023-10-15 11:55] LABS: Influenza A PCR NEGATIVE (Negative); Influenza B PCR NEGATIVE (Negative); Resp Syncy Virus RNA Qual PCR NEGATIVE (Negative); SARS COV2 PCR INHOUSE NEGATIVE (Negative)
== END 2023-10-15 09:11 | disposition home or self-care (01) ==
LOC: HO.LAB 09:10
PROVIDERS: Visit Provider Registered Nurse Emergency
DX: Z11.52 Encounter for screening for COVID-19 (principal); J06.9 Acute upper respiratory infection, unspecified
CPT/HCPCS: 0241U

== ENCOUNTER 2023-12-10 08:49 | Outpatient (AMB) | payer OTHER, SELFPAY ==
[2023-12-10 08:49] VITALS: BP 130/78; PULSE 93; TEMP 36.3; O2SAT 95; BMI 30.4
--- NOTE | 2023-12-10 08:49 | MHC.OFFWIV ---
Intake Vital Signs 12/10/23 08:49 Height 5 ft 10 in Weight 212 lb BMI 30.4 BP 130/78 Blood Pressure Location Lt brachial Position Sitting Pulse 93 Pulse Source Pulse Oximeter Temp 97.3 F Temp Source Temporal Artery Scan Pulse Oximetry (%) 95 Oxygen Delivery Method Room Air Intake Visit Reasons: EP Sore throat, body ache, Headache Intake Note: pt is here today for sore throat body ache headache started sunday Patient Tobacco Use Status: Former Tobacco user Allergies cetirizine [From [facility]] Adverse Reaction (Mild, Verified 12/10/23 08:54) Nightmare lactose Adverse Reaction (Unknown, Verified 12/10/23 08:54) Diarrhea Do you need a note to return to daycare/school/sports/work: Yes HPI HPI Comments History of Present Illness Details Patient is a 43-year-old male complaining of sore throat x3 days. He also is complaining of headaches, body aches, pain with swallowing but he is able to handle his secretions. He also complains of ear pain bilaterally, sinus pain, head congestion and has a subjective fever. He denies any nausea vomiting or diarrhea. He did try to take some Mucinex which seemed to help a little bit. He states his symptoms are worse when he lays down. He states his son was just sick with a sore throat however he did not bring his son to the doctor and he is now better. [facility] Medical History (Updated 12/10/23 @ 09:26 by Elaina Canales PA-C) Presence of ileostomy Annual physical exam Presence of IVC filter Transaminitis Hypertriglyceridemia Sinusitis Inflammatory bowel diseases (IBD) Ulcerative colitis Sleep disorder breathing Infection of lip Lumbar disc herniation with radiculopathy Right knee injury Injury of lumbar spine Infected nasal abrasion Lumbar radiculopathy, chronic HLD (hyperlipidemia) Constipation by delayed colonic transit Allergic rhinitis Obesity Colitis Zinc deficiency B12 deficiency Vitamin D deficiency Chronic nasal congestion Nasal sinus congestion Obese Low libido GERD without esophagitis H/O deep venous thrombosis H/O acute pancreatitis CASSIA (generalized anxiety disorder) Hypertriglyceridemia Surgical History History of ileostomy History of colectomy History of ileostomy History of resection of rectum Family History Father CVD (cardiovascular disease) Mother Hypertension Diabetes Maternal Grandmother Liver cancer Maternal Grandfather CVD (cardiovascular disease) Family/Other Diabetes Social History (Updated 09/12/23 @ 14:19 by Dayton Gould PA-C) Household Members: Other Household Members Other:: girlfriend and children Housing: House Do you presently have visiting nurse or other home services: No Alcohol intake: never Patient Tobacco Use Status: Former Tobacco user e-Cigarette/Vaping Use: Never Used Substance Use Type: Marijuana service: No Current occupational status: employed Current occupation: [employer] Cognitive needs: No Hearing needs: No Vision needs: No Review of Systems Const All systems reviewed & are unremarkable except as noted in HPI and below Physical Exam Vital Signs: Last Vital Signs Temp 97.3 F 12/10/23 08:49 Pulse 93 12/10/23 08:49 BP 130/78 12/10/23 08:49 Pulse Ox 95 12/10/23 08:49 Oxygen Delivery Method Room Air 12/10/23 08:49 BMI result Body Mass Index 30.4 Const General: cooperative, healthy appearing, comfortable and no acute distress Orientation/consciousness: patient oriented x3 Limitations: no limitations HEENT Head: Yes normal to inspection Ears: external ears normal, TM normal on the left and TM abnormal (Right) wth effusion General nose exam: Normal external nose present, Normal nares present and Nasal discharge present Face and sinus: Yes normal facial exam and Yes sinuses nontender Mouth: Normal oral and palatal mucosa present and moist mucous membranes Throat: Yes tonsils normal, Yes uvula midline and Yes posterior oropharynx abnormal (Erythema) Eyes General: appearance normal, both eyes and all related structures Neck Neck: Yes normal visual inspection Resp Effort & Inspection: normal respiratory effort, able to speak in complete sentences, Actively coughing, no respiratory distress, not tachypneic, no tripod positioning and no use of accessory muscles Auscultation: clear to auscultation bilaterally Cardio Rate: regular rate Rhythm: regular rhythm Heart sounds: normal S1 and S2 Skin General skin exam: no rashes or lesions noted Neuro General: patient oriented x3 Extrem General: Yes normal to inspection and Yes no clubbing, cyanosis or edema Results AMB Rapid Strep AMB Rapid Strep Negative Last Edit by NAEL Contreras on 12/10/23 09:30 Results Reviewed Results Reviewed: Laboratory Last Values Strep Scn Rapid Clinic Negative 12/10/23 09:29 Assessment & Plan Assessment & Plan (1) Otitis media, right: Code(s): H66.91 - Otitis media, unspecified, right ear Qualifiers: Chronicity: acute Otitis media type: mucoid Qualified Code(s): H65.191 - Other acute nonsuppurative otitis media, right ear Plan: Sent prescription, advised rest, increase fluids, gave okay for a work note for 2 days. Plan See above Orders: Orders AMB Rapid Strep Screen Today Z13.9 - Encounter for screening, unspecified Medications: New amoxicillin 875 mg PO Q12H 10 tabs 0RF Coding Level of Care Code Est Pt Level 3 (99498) Diagnoses Acute mucoid otitis media of right ear H65.191 Chronicity: acute Otitis media type: mucoid
== END 2023-12-10 09:36 | disposition home or self-care (01) ==
PROVIDERS: PCP Physician Assistant; Visit Provider Physician Assistant
DX: H65.191 Other acute nonsuppurative otitis media, right ear (principal); J02.9 Acute pharyngitis, unspecified
CPT/HCPCS: 87880; 99213

== ENCOUNTER 2023-12-26 09:32 | Outpatient (AMB) | payer OTHER, SELFPAY ==
[2023-12-26 09:34] VITALS: BP 122/80; PULSE 75; TEMP 36.8; O2SAT 98; BMI 30.4
--- NOTE | 2023-12-26 09:34 | MHC.OFFWIV ---
Intake Vital Signs 12/26/23 09:34 Height 5 ft 10 in Weight 212 lb 2 oz BMI 30.4 BP 122/80 Blood Pressure Location Lt brachial Position Sitting Pulse 75 Pulse Source Pulse Oximeter Temp 98.2 F Temp Source Oral Pulse Oximetry (%) 98 Intake Visit Reasons: EP lower abdomen pain Intake Note: pt is here for lower abd pain possible uti Patient Tobacco Use Status: Former Tobacco user Allergies cetirizine [From [facility]] Adverse Reaction (Mild, Verified 12/26/23 09:35) Nightmare lactose Adverse Reaction (Unknown, Verified 12/26/23 09:35) Diarrhea Do you need a note to return to daycare/school/sports/work: No HPI HPI Comments History of Present Illness Details 43-year-old male presents today complaining of urgency dysuria and feeling of a full bladder with bilateral low back pain times the last day. He is past medical history of pancreatitis in his somewhat concerned about these symptoms. He just finished antibiotic yesterday for otitis media. Denies nausea vomiting chest pain or cough. Past medical history includes ileostomy that is non reversible [facility] Medical History (Updated 12/26/23 @ 10:22 by SONAM Crouch) Presence of ileostomy Annual physical exam Presence of IVC filter Transaminitis Hypertriglyceridemia Sinusitis Inflammatory bowel diseases (IBD) Ulcerative colitis Sleep disorder breathing Infection of lip Lumbar disc herniation with radiculopathy Right knee injury Injury of lumbar spine Infected nasal abrasion Lumbar radiculopathy, chronic HLD (hyperlipidemia) Constipation by delayed colonic transit Allergic rhinitis Obesity Colitis Zinc deficiency B12 deficiency Vitamin D deficiency Chronic nasal congestion Nasal sinus congestion Obese Low libido GERD without esophagitis H/O deep venous thrombosis H/O acute pancreatitis CASSIA (generalized anxiety disorder) Hypertriglyceridemia Surgical History History of ileostomy History of colectomy History of ileostomy History of resection of rectum Family History Father CVD (cardiovascular disease) Mother Hypertension Diabetes Maternal Grandmother Liver cancer Maternal Grandfather CVD (cardiovascular disease) Family/Other Diabetes Social History (Updated 09/12/23 @ 14:19 by Dayton Gould PA-C) Household Members: Other Household Members Other:: girlfriend and children Housing: House Do you presently have visiting nurse or other home services: No Alcohol intake: never Patient Tobacco Use Status: Former Tobacco user e-Cigarette/Vaping Use: Never Used Substance Use Type: Marijuana service: No Current occupational status: employed Current occupation: [employer] Cognitive needs: No Hearing needs: No Vision needs: No Review of Systems Const All systems reviewed & are unremarkable except as noted in HPI and below Physical Exam Vital Signs: Last Vital Signs Temp 98.2 F 12/26/23 09:34 Pulse 75 12/26/23 09:34 BP 122/80 12/26/23 09:34 Pulse Ox 98 12/26/23 09:34 BMI result Body Mass Index 30.4 Const General: healthy appearing and acute distress mild HEENT Head: Yes normal to inspection, Yes normocephalic and Yes atraumatic Ears: hearing grossly normal bilaterally General nose exam: Normal external nose present Face and sinus: Yes normal facial exam Throat: Yes posterior oropharynx normal Resp Effort & Inspection: normal respiratory effort Auscultation: clear to auscultation bilaterally Cardio Rate: regular rate Rhythm: regular rhythm Heart sounds: S1 normal heart sound present and S2 normal heart sound present GI Inspection: Yes normal to inspection (Ileostomy bag present) Palpation (GI): Tenderness to palpation present (GI) suprapubicly (Mild suprapubic tenderness feeling of bladder fullness) Auscultation: normal bowel sounds Results AMB Urinalysis, Automated UA Leukoctes 0 Guera/uL Last Edit by Savage Fox CMA on 12/26/23 09:57 UA Nitrite Negative Last Edit by Savage Fox CMA on 12/26/23 09:57 UA Urobilinogen 0.2 mg/dL Last Edit by Savage Fox CMA on 12/26/23 09:57 UA Protein 0 mg/dL Last Edit by Savage Fox CMA on 12/26/23 09:57 UA pH 6.0 Last Edit by Savage Fox CMA on 12/26/23 09:57 UA Blood 0 Peyman/uL Last Edit by Savage Fox CMA on 12/26/23 09:57 UA Specific [place] 1.030 Last Edit by Savage Fox CMA on 12/26/23 09:57 UA Ketone Negative Last Edit by Savage Fox CMA on 12/26/23 09:57 UA Bilirubin 0 mg/dL Last Edit by Savage Fox CMA on 12/26/23 09:57 UA Glucose 0 mg/dL Last Edit by Savage Fox CMA on 12/26/23 09:57 Assessment & Plan Assessment & Plan (1) Abdominal pain: Code(s): R10.9 - Unspecified abdominal pain Qualifiers: Abdominal location: periumbilical Qualified Code(s): R10.33 - Periumbilical pain Plan: The patient's urinalysis in the office was negative however he would just finished his antibiotic. His symptomatic complaints seem evident of a UTI. I also ordered lab work to rule out exacerbation of pancreatitis which was a concern of the patient (2) UTI (urinary tract infection): Code(s): N39.0 - Urinary tract infection, site not specified Plan: Antibiotic ordered for UTI Plan See plan Orders: Orders AMB Urinalysis Automated Today Z13.9 - Encounter for screening, unspecified Complete Blood Count Auto Diff Today R10.33 - Periumbilical pain Comprehensive Met. Panel Today R10.33 - Periumbilical pain Lipase Today R10.33 - Periumbilical pain Medications: New cephalexin 500 mg PO BID 7 days 14 caps 0RF Coding Level of Care Code Est Pt Level 3 (03453) Diagnoses Abdominal pain R10.33 Abdominal location: periumbilical UTI (urinary tract infection) N39.0
== END 2023-12-26 11:26 | disposition home or self-care (01) ==
PROVIDERS: PCP Physician Assistant; Visit Provider Physician Assistant Medical
DX: R10.33 Periumbilical pain (principal); N39.0 Urinary tract infection, site not specified
CPT/HCPCS: 81003; 99213

== ENCOUNTER 2024-01-01 08:54 | Outpatient (AMB) | payer OTHER, SELFPAY ==
[2024-01-01 09:12] VITALS: BP 134/82; PULSE 72; BMI 31.0
--- NOTE | 2024-01-01 09:12 | MHC.OFFVIS ---
Vital Signs 01/01/24 09:12 Height 5 ft 10 in Weight 215 lb 13.321 oz BMI 31.0 BP 134/82 Blood Pressure Location Lt brachial Position Sitting Pulse 72 Pulse Source Pulse Oximeter Intake Visit Reasons: Hypertriglyceridemia-confirmed Intake Note: Patient presents today for a follow-up on Hypertriglyceridemia. Last seen by Dr. Pereira on 09/05/2021. 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 Accompanied by: Self / Same As Patient Allergies cetirizine [From [facility]] Adverse Reaction (Mild, Verified 01/01/24 09:16) Nightmare lactose Adverse Reaction (Unknown, Verified 01/01/24 09:16) Diarrhea Medication List - Last Reconciled 01/01/24 by Augie Hannah MD cephalexin 500 mg PO BID 7 days colostomy-Ileost.set,nonsteril (Premier Colostomy-Ileostomy) As directed fenofibrate 160 mg PO DAILY 90 days metoprolol succinate ER 25 mg PO DAILY niacin ER 500 mg (2 x 250 mg) PO DAILY 90 days omeprazole 40 mg PO DAILY PRN ostomy adhesive (Stomahesive Paste) As directed ostomy supplies (Skin Prep Wipes) As directed rosuvastatin (Crestor) 20 mg PO DAILY HPI Comments Details: 43 YO Male with PMHx Hypertriglyceridemia as well as resultant pancreatitis. He is seen in F/U for the same. He was previously followed by Dr. Yoo. The patient last saw Dr. Pereira on 09/05/2021 He also has a history of Crohn's disease with prior cholectomy and ileostomy. He has a prior DVT with IVC filter in place. His most recent episode of pancreatitis was September of 2020. He remains on fenofibrate 160 mg lPO BID Niacin ER 500 mg QD and Crestor 20 mg QD( couldn't tolerate because of joint pain) He has made significant changes to his diet and his TG levels have come down into the 300's. He denies a family history of heart disease. Labs: Laboratory Tests 08/19/21 08/19/21 09:40 09:40 Triglycerides 322 Cholesterol 162 LDL Cholesterol Direct 69 HDL Cholesterol 33 D 25-OH Vitamin D Total 23.5 [facility] Medical History (Updated 12/26/23 @ 10:22 by SONAM Crouch) Presence of ileostomy Annual physical exam Presence of IVC filter Transaminitis Hypertriglyceridemia Sinusitis Inflammatory bowel diseases (IBD) Ulcerative colitis Sleep disorder breathing Infection of lip Lumbar disc herniation with radiculopathy Right knee injury Injury of lumbar spine Infected nasal abrasion Lumbar radiculopathy, chronic HLD (hyperlipidemia) Constipation by delayed colonic transit Allergic rhinitis Obesity Colitis Zinc deficiency B12 deficiency Vitamin D deficiency Chronic nasal congestion Nasal sinus congestion Obese Low libido GERD without esophagitis H/O deep venous thrombosis H/O acute pancreatitis CASSIA (generalized anxiety disorder) Hypertriglyceridemia Surgical History History of ileostomy History of colectomy History of ileostomy History of resection of rectum Family History Father CVD (cardiovascular disease) Mother Hypertension Diabetes Maternal Grandmother Liver cancer Maternal Grandfather CVD (cardiovascular disease) Family/Other Diabetes Social History (Updated 09/12/23 @ 14:19 by Dayton Gould PA-C) Household Members: Other Household Members Other:: girlfriend and children Housing: House Do you presently have visiting nurse or other home services: No Alcohol intake: never Patient Tobacco Use Status: Former Tobacco user e-Cigarette/Vaping Use: Never Used Substance Use Type: Marijuana service: No Current occupational status: employed Current occupation: [employer] Cognitive needs: No Hearing needs: No Vision needs: No Assessment & Plan Assessment & Plan (1) Hypertriglyceridemia: Code(s): E78.1 - Pure hyperglyceridemia Category: Medical Plan: This is a 43-year-old male with a history of high triglycerides with previous history of pancreatitis currently being treated with a , niacin and fenofibrate. He states intolerance to statins . Plan is to reinitiate Vascepa 1 g b.i.d.. We will recheck lipid profile as well as HbA1c in 2 months' time. Did explain the relationship of high triglycerides to pancreatitis Orders: Orders Hemoglobin A1c 2 Months E78.1 - Pure hyperglyceridemia Medications: New icosapent ethyl (Vascepa) 2 grams (2 x 1 gram) PO BID 120 caps 5RF Coding Level of Care Code Est Pt Level 3 (05105) Diagnoses Hypertriglyceridemia E78.1
== END 2024-01-01 09:31 | disposition home or self-care (01) ==
PROVIDERS: PCP Physician Assistant; Visit Provider Internal Medicine Endocrinology, Diabetes & Metabolism
DX: E78.1 Pure hyperglyceridemia (principal)
CPT/HCPCS: 99213

== ENCOUNTER → 2024-01-01 08:54 | Outpatient (BNVA) | payer OTHER, SELFPAY | PROVIDERS: PCP Physician Assistant; Visit Provider Internal Medicine Endocrinology, Diabetes & Metabolism | DX: E78.1 Pure hyperglyceridemia (principal) | CPT/HCPCS: 99212 ==

== ENCOUNTER 2024-04-24 13:26 | Outpatient (AMB) | payer OTHER, SELFPAY ==
[2024-04-24 13:32] VITALS: BP 144/88; PULSE 78; O2SAT 97; BMI 30.6
--- NOTE | 2024-04-24 13:32 | MHC.PC.OV ---
Vital Signs 04/24/24 13:32 Height 5 ft 10 in Weight 213 lb BMI 30.6 BP 144/88 H Blood Pressure Location Lt brachial Position Sitting Pulse 78 Pulse Source Pulse Oximeter Pulse Oximetry (%) 97 Oxygen Delivery Method Room Air Intake Visit Reasons: nose infection Assistant Prosecuting Attorney Required: No Accompanied by: Self / Same As Patient Allergies cetirizine [From Zte] Adverse Reaction (Mild, Verified 04/24/24 14:03) Nightmare lactose Adverse Reaction (Unknown, Verified 04/24/24 14:03) Diarrhea Medication List - Last Reconciled 04/24/24 by Dayton Gould PA-C colostomy-Ileost.set,nonsteril (Premier Colostomy-Ileostomy) As directed fenofibrate 160 mg PO DAILY 90 days icosapent ethyl (Vascepa) 2 grams (2 x 1 gram) PO BID metoprolol succinate ER 25 mg PO DAILY niacin ER 500 mg (2 x 250 mg) PO DAILY 90 days omeprazole 40 mg PO DAILY PRN ostomy adhesive (Stomahesive Paste) As directed ostomy supplies (Skin Prep Wipes) As directed rosuvastatin 20 mg PO DAILY Tobacco use date assessed: 07/26/23 Dental Screening Dental Screen Date: 09/12/23 HPI nose infection HPI Details Patient is a 44-year-old male here today for problem visit. Patient reports chronic nasal discharge and congestion. Does have the syndrome of rhinitis minute mucosa as he has been using Afrin nasal spray over the last several years.\ He reports more recently having more congestion and and bad taste and smell in his nose and mouth. He has also started to notice some nasal and sinus tenderness. He has not been able to get into an ENT specialist as he has missed appointments and they are not letting him in an office. He has been told he at nasal polyp that may need to be removed. He would like a 2nd opinion from a new ENT specialist. He usually is treated with a prednisone taper and antibiotics with clear his symptoms for temporary time only. Also was recently hospitalized [facility] for acute pancreatitis and was found to have very elevated triglycerides again. His fenofibrate was discontinued and he was started on gemfibrozil 600 b.i.d.. [facility] Medical History (Updated 04/24/24 @ 14:07 by Dayton Gould PA-C) Sinusitis Presence of ileostomy Annual physical exam Presence of IVC filter Transaminitis Hypertriglyceridemia Inflammatory bowel diseases (IBD) Ulcerative colitis Sleep disorder breathing Infection of lip Lumbar disc herniation with radiculopathy Right knee injury Injury of lumbar spine Infected nasal abrasion Lumbar radiculopathy, chronic HLD (hyperlipidemia) Constipation by delayed colonic transit Allergic rhinitis Obesity Colitis Zinc deficiency B12 deficiency Vitamin D deficiency Chronic nasal congestion Nasal sinus congestion Obese Low libido GERD without esophagitis H/O deep venous thrombosis H/O acute pancreatitis CASSIA (generalized anxiety disorder) Hypertriglyceridemia Surgical History History of ileostomy History of colectomy History of ileostomy History of resection of rectum Family History Father CVD (cardiovascular disease) Mother Hypertension Diabetes Maternal Grandmother Liver cancer Maternal Grandfather CVD (cardiovascular disease) Family/Other Diabetes Social History Household Members: Other Household Members Other:: girlfriend and children Housing: House Do you presently have visiting nurse or other home services: No Alcohol intake: never Patient Tobacco Use Status: Former Tobacco user e-Cigarette/Vaping Use: Never Used Substance Use Type: Marijuana service: No Current occupational status: employed Current occupation: [employer] Cognitive needs: No Hearing needs: No Vision needs: No Questionnaire Thrive Questionnaire Date Thrive assessed: 07/26/23 Are you currently unemployed and looking for a job?: Yes CASSIA-7 AMB Questionnaire CASSIA-7 Date CASSIA - 7 assessed: 07/26/23 Source: Developed by Drs. Augie Acosta, Radha Echavarria, Eros Robbins and colleagues, with an educational juli from [employer]. Review of Systems Const Denies headache(s) Eyes Denies loss of vision ENT Denies vertigo, Denies dizziness, Denies headache(s) and Denies sore throat Card Denies chest pain, Denies leg edema and Denies lightheadedness Resp Denies cough, Denies hemoptysis and Denies wheezing GI Denies abdominal pain, Denies melena, Denies constipation, Denies diarrhea and Denies vomiting Denies dysuria, Denies urinary frequency and Denies urinary urgency Musc Denies arthralgias, Denies joint swelling, Denies numbness and Denies tingling Neuro Denies Abnormal speech present, Denies behavioral changes, Denies vertigo, Denies dizziness, Denies headache(s), Denies loss of vision, Denies memory loss, Denies numbness and Denies tingling Psych Denies anxiety, Denies behavioral changes, Denies depression, Denies memory loss and Denies panic attacks Jarad/Lymph Denies easy bleeding and Denies easy bruising Aller/Immun Denies wheezing Physical exam (Primary Care) Vital Signs: Last Vital Signs Pulse 78 04/24/24 13:32 BP 144/88 H 04/24/24 13:32 Pulse Ox 97 04/24/24 13:32 Oxygen Delivery Method Room Air 04/24/24 13:32 BMI result Body Mass Index 30.6 Tobacco/Smoking Status: Tobacco use Status Tobacco use date assessed 07/26/23 04/24/24 13:32 Patient Tobacco Use Status Former Tobacco user 04/24/24 13:32 e-Cigarette/Vaping Use Never Used 04/24/24 13:32 Thrive Assessment: Date of Thrive Assessment Date Thrive assessed 07/26/23 04/24/24 13:32 Const General: healthy appearing, no acute distress, alert and awake Nutritional Appearance: well nourished Orientation/consciousness: oriented to person, oriented to place and oriented to time HENMT Other: BILATERAL NARES WITH ERYTHEMATOUS NASAL MUCOSA, CLEAR NASAL DRAINAGE. Ears: TM's normal bilaterally General nose exam: Normal nasal mucous membranes and turbinates present Face and sinus: Yes erythema and Yes sinus tenderness Eyes Conjunctivae: conjunctivae normal Sclerae: sclerae normal Pupils: Equal, round and reactive pupils present Neck Neck: Yes no lymphadenopathy and Yes no JVD Thyroid: Thyroid normal Carotids: no bruits Resp Effort & Inspection: normal respiratory effort and not tachypneic Auscultation: no crackles, no rales, no rhonchi and no wheezes Cardio Rate: regular rate Rhythm: regular rhythm Heart sounds: no murmurs and normal S1 and S2 GI Palpation (GI): Soft to palpation, nontender, no hepatomegaly and no splenomegaly Auscultation: normal bowel sounds Skin General skin exam: no rashes or lesions noted and dry skin Neuro General: oriented to person, oriented to place and oriented to time Cranial nerves: Yes Equal, round and reactive pupils present Speech: No Abnormal speech present Gait exam (Neuro): Normal gait present Motor exam (neuro): no tremor noted Extrem Right upper extremity: full ROM Left upper extremity: full ROM Right lower extremity: full ROM; no edema Left lower extremity: full ROM; no edema Psych Mental Status: mental status grossly normal Speech and movement: Normal speech and movement present Affect: normal affect Attitude: cooperative Thought process: Normal thought process present Office Procedures Flu Questionnaire Does the patient have a severe egg allergy?: No Does the patient have severe life threatening allergies?: No Does the patient have a fever or illness today?: No Has the patient ever had Guillain-[place] Syndrome?: No Has the patient ever had any past reaction to a flu shot?: No Immunizations Fluarix Triv [id number] (PF) 45 mcg (15 mcg x 3)/0.5 mL IM syringe Performing Provider: Dayton Gould PA-C [facility] Administered by: NAEL Jerome on 04/24/24 14:19 Dose Route Admin Location Dispensed Lot Number Expiration Date NDC [employer] 0.5 mL IM Left Deltoid 0.5 mL [id number] 12/29/24 [id number] [employer] VIS Given Date VIS Provided VIS Publication Date 04/24/24 Single Vaccine 21 Eligibility Eligibility Date Funding Source Not [facility] Eligible 04/24/24 Private Coding Level of Care Code Est Pt Level 3 (59437) Diagnoses 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 Unfortunately he is very uncomfortable for him to have a nasal congestion and difficulty breathing at night. He has been told he has a nasal polyp as well on likely needs surgery to remove the polyp. Will send a 2nd opinion referral to ENT at [facility] for evaluation and possible surgical treatment of his nasal polyp. (2) Sinusitis: Code(s): J32.9 - Chronic sinusitis, unspecified Category: Medical Qualifiers: Chronicity: acute Recurrence: recurrent Sinusitis location: frontal Qualified Code(s): J01.11 - Acute recurrent frontal sinusitis Plan: As above patient showing some signs sinus infection. Will treat with antibiotic and prednisone taper which has helped him several times in the past. Orders: Orders Influenza [id number] Immunization Today Z23 - Encounter for immunization Medications: New amoxicillin-pot clavulanate 875-125 mg 1 tab PO BID 14 tabs 0RF 7 days J01.11 - Acute recurrent frontal sinusitis gemfibrozil 600 mg PO BID 60 tabs 3RF 30 days E78.1 - Pure hyperglyceridemia prednisone Take 3 tablets x3 days, 2 tablets x3 days, 1 tablet x3 days 10 mg PO DIRECTED 18 tabs 0RF 9 days J01.11 - Acute recurrent frontal sinusitis Refilled niacin ER 500 mg (2 x 250 mg) PO DAILY 180 tabs 1RF 90 days E78.1 - Pure hyperglyceridemia, K85.80 - Other acute pancreatitis without necrosis or infection Discontinued fenofibrate Discontinued Reason: Doctor's Order 160 mg PO DAILY 90 days 90 tabs 3RF E78.1 - Pure hyperglyceridemia
== END 2024-04-24 14:21 | disposition home or self-care (01) ==
PROVIDERS: PCP Physician Assistant; Visit Provider Physician Assistant
DX: J31.0 Chronic rhinitis (principal); T48.5X5A Adverse effect of other anti-common-cold drugs, initial encounter; J01.11 Acute recurrent frontal sinusitis; Z23 Encounter for immunization

== ENCOUNTER → 2024-04-24 13:26 | Outpatient (BNVA) | payer OTHER, SELFPAY | PROVIDERS: PCP Physician Assistant; Visit Provider Physician Assistant | DX: Z23 Encounter for immunization (principal); J31.0 Chronic rhinitis; T48.5X5A Adverse effect of other anti-common-cold drugs, initial encounter; J01.11 Acute recurrent frontal sinusitis | CPT/HCPCS: 90471; 90656; 99212 ==

== ENCOUNTER 2024-06-16 14:05 | Outpatient (AMB) | payer OTHER, SELFPAY ==
--- NOTE | 2024-06-16 14:17 | A.OFFPC_ITS ---
Vital Signs 06/16/24 14:20 Height 5 ft 10 in Weight 207 lb 2 oz BMI 29.7 BP 130/84 Blood Pressure Location Lt brachial Position Sitting Pulse 96 Pulse Source Pulse Oximeter Pulse Oximetry (%) 96 Oxygen Delivery Method Room Air Intake Visit Reasons: [facility] 06/13 lungs and pancreatitis inflammation Intake Note: Patient is here for hospital discharge follow up. Patient was discharged from [facility] on 06/13/24. 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: No Professor Criminal Justice: Not Required per policy Accompanied by: Self / Same As Patient [facility] Adverse Reaction (Mild, Verified 06/16/24 14:58) Nightmare lactose Adverse Reaction (Unknown, Verified 06/16/24 14:58) Diarrhea Medication List - Last Reconciled 06/16/24 by Damian Gutierres MD colostomy-Ileost.set,nonsteril (Premier Colostomy-Ileostomy) As directed gemfibrozil 600 mg PO BID 30 days icosapent ethyl (Vascepa) 2 grams (2 x 1 gram) PO BID metoprolol succinate ER 25 mg PO DAILY niacin ER 500 mg (2 x 250 mg) PO DAILY 90 days omeprazole 40 mg PO DAILY PRN ostomy adhesive (Stomahesive Paste) As directed ostomy supplies (Skin Prep Wipes) As directed rosuvastatin 20 mg PO DAILY Tobacco use date assessed: 06/16/24 Dental Screening Dental Screen Date: 09/12/23 [facility] Medical History (Updated 06/16/24 @ 15:00 by Damian Gutierres MD) CASSIA (generalized anxiety disorder) Sinusitis Presence of ileostomy Annual physical exam Presence of IVC filter Transaminitis Hypertriglyceridemia Inflammatory bowel diseases (IBD) Ulcerative colitis Sleep disorder breathing Infection of lip Lumbar disc herniation with radiculopathy Right knee injury Injury of lumbar spine Infected nasal abrasion Lumbar radiculopathy, chronic HLD (hyperlipidemia) Constipation by delayed colonic transit Allergic rhinitis Obesity Colitis Zinc deficiency B12 deficiency Vitamin D deficiency Chronic nasal congestion Nasal sinus congestion Obese Low libido GERD without esophagitis H/O deep venous thrombosis H/O acute pancreatitis Hypertriglyceridemia Surgical History History of ileostomy History of colectomy History of ileostomy History of resection of rectum Family History Father CVD (cardiovascular disease) Mother Hypertension Diabetes Maternal Grandmother Liver cancer Maternal Grandfather CVD (cardiovascular disease) Family/Other Diabetes Social History Household Members: Other Household Members Other:: girlfriend and children Housing: House Do you presently have visiting nurse or other home services: No Alcohol intake: never Patient Tobacco Use Status: Former Tobacco user e-Cigarette/Vaping Use: Never Used Second Hand Smoke Exposure: Yes Substance Use Type: Marijuana service: No Current occupational status: employed Current occupation: [employer] Cognitive needs: No Hearing needs: No Vision needs: No Questionnaire Thrive Questionnaire Date Thrive assessed: 07/26/23 Are you currently unemployed and looking for a job?: Yes CASSIA-7 AMB Questionnaire CASSIA-7 Date CASSIA - 7 assessed: 07/26/23 Source: Developed by Drs. Augie Acosta, Radha Echavarria, Eros Robbins and colleagues, with an educational juli from [employer]. Physical exam (Primary Care) Vital Signs: Last Vital Signs Pulse 96 06/16/24 14:20 BP 130/84 06/16/24 14:20 Pulse Ox 96 06/16/24 14:20 Oxygen Delivery Method Room Air 06/16/24 14:20 BMI result Body Mass Index 29.7 Tobacco/Smoking Status: Tobacco use Status Tobacco use date assessed 06/16/24 06/16/24 14:26 Patient Tobacco Use Status Former Tobacco user 06/16/24 14:26 e-Cigarette/Vaping Use Never Used 06/16/24 14:26 Thrive Assessment: Date of Thrive Assessment Date Thrive assessed 07/26/23 06/16/24 14:26 Coding Level of Care Code Est Pt Level 4 (50446) Complex EM visit Add On G2211 Diagnoses Idiopathic acute pancreatitis without infection or necrosis K85.00 Acute pancreatitis complication: no infection or necrosis Pancreatitis type: idiopathic Other acute pancreatitis, unspecified complication status K85.80 Chronicity: acute Pancreatitis type: other Acute pancreatitis complication: unspecified CASSIA (generalized anxiety disorder) F41.1 Assessment & Plan Assessment & Plan (1) Acute pancreatitis: Code(s): K85.90 - Acute pancreatitis without necrosis or infection, unspecified Category: Medical Qualifiers: Acute pancreatitis complication: no infection or necrosis Pancreatitis type: idiopathic Qualified Code(s): K85.00 - Idiopathic acute pancreatitis without necrosis or infection Plan: History of Present Illness The patient is a 44-year-old male presenting with exacerbation of chronic pancreatitis. He reports experiencing severe abdominal pain that started in the center of the abdomen and has been persistent since a week before his hospital admission on June 07. He previously thought he had gastritis or stomach ulcers and self-administered omeprazole with temporary relief. Due to increasing intensity, he sought hospital care, where a CT scan revealed significant pancreatic inflammation, with blood enzyme levels notably elevated at 4000 units. He was hospitalized from June 07 to and required intensive care management to reduce pancreatic enzyme levels, which returned to 306 units upon discharge. The patient has a history of similar episodes requiring hospitalization, with a prior admission in March, and recurrent pancreatitis episodes related to alcohol use. His mother has a history of similar symptoms attributed to gallbladder stones, contributing to current diagnostic considerations. Since discharge, he reports persistent nausea, which is exacerbated by certain foods, especially chicken-related dishes, and other strong odors. Currently, he denies vomiting but states an ongoing issue with nausea that is impacting nutritional intake. He also recounts a history of bronchial symptoms before his last admission, including a cough with increased phlegm production, which was diagnosed as bronchitis and associated with a pleural effusion. He experienced breathing difficulties owing to fluid accumulation in the lungs during his hospital stay but made a gradual recovery. The patient has been on clonazepam for panic attacks, prescribed by his psychiatrist, Dr. Gutierrez, to manage anxiety symptoms triggered by insufficient sleep. The chronic pain and stress related to his medical conditions have exacerbated his anxiety episodes. 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 - Reports moderate tobacco use, with mention of sporadic cannabis use for sleep. - Dietary issues related to nausea and food aversion post-admission. - Uses clonazepam as needed for anxiety and sleep disturbances, specifically at nighttime. Review of Systems - Gastrointestinal: Reports persistent nausea, absence of vomiting. - Respiratory: Reports history of cough with phlegm production. - Mental Health: Reports anxiety and insomnia managed with clonazepam. Physical Exam General: Cooperative and healthy appearing Nutritional Appearance: Well nourished Orientation/consciousness: Patient oriented x3 Limitations: No limitations Head: Normal to inspection General: Appearance normal, both eyes and all related structures Neck: Normal visual inspection Chest: Normal palpation of entire chest wall Respiratory: Normal respiratory effort Abdomen: Large Surgical scar. Colostomy bag in place. BS well heard. No tenderness Neurology: Patient oriented x3 Results - Labs: Pancreatic enzyme levels elevated, previously reported as 4000 units, reduced to 306 units prior to discharge. - Imaging: CT scan confirmed pancreatic inflammation; scan also indicated pleural effusion. Plan - Assess pancreatic enzyme levels through blood work to monitor pancreatitis status. - Prescribe Zofran for symptomatic relief of nausea. - Encourage gradual dietary modifications to address persistent nausea. - Recommend follow-up with psychiatrist for ongoing anxiety management. - Arrange for continued monitoring of lung condition due to recent pleural effusion. - Encourage avoidance of alcohol and smoking to mitigate pancreatitis exacerbations. Patient was informed and verbally consented to the use of an ambient scribe for clinic note documentation during this visit. Discussion Notes I discussed with the patient the management plan for his chronic pancreatitis, emphasizing the importance of monitoring pancreatic enzymes to assess inflammation levels. I recommended using Zofran to manage nausea, which can help improve his dietary intake. I advised on the necessity of avoiding alcohol and smoking to prevent further exacerbations. The patient was informed of the need for follow-up with his psychiatrist to ensure his anxiety is well-managed and to avoid potential panic attacks triggered by sleep disturbances. We reviewed the potential benefits and risks associated with his current medication regimen, specifically clonazepam, and verified that he has an adequate supply for as- needed use. Patient Instructions - Continue taking prescribed medications as directed. - Arrange follow-up blood work to check pancreatic enzyme levels. - Take Zofran for nausea as needed. - Avoid foods and practices that exacerbate symptoms, including alcohol and tobacco. - Follow up with your psychiatrist to ensure anxiety is well-managed. - Schedule a timely follow-up appointment with your primary physician. - Monitor for any worsening symptoms and seek care if necessary. (2) Pancreatitis: Code(s): K85.90 - Acute pancreatitis without necrosis or infection, unspecified Category: Medical Qualifiers: Chronicity: acute Pancreatitis type: other Acute pancreatitis complication: unspecified Qualified Code(s): K85.80 - Other acute pancreatitis without necrosis or infection Plan: See above (3) CASSIA (generalized anxiety disorder): Code(s): F41.1 - Generalized anxiety disorder Category: Medical Plan: Patient sees a therapist and psychiatrist for this condition. Takes Clonazepam 1 mg as needed for panic attacks. Orders: Orders Complete Blood Count no Diff Today K85.80 - Other acute pancreatitis without necrosis or infection Amylase Today K85.00 - Idiopathic acute pancreatitis without necrosis or infection, K85.80 - Other acute pancreatitis without necrosis or infection Basic Metabolic Panel Today K85.80 - Other acute pancreatitis without necrosis or infection Lipase Today K85.80 - Other acute pancreatitis without necrosis or infection
[2024-06-16 14:20] VITALS: BP 130/84; PULSE 96; O2SAT 96; BMI 29.7
== END 2024-06-16 14:48 | disposition home or self-care (01) ==
PROVIDERS: PCP Physician Assistant; Visit Provider Internal Medicine
DX: K85.00 Idiopathic acute pancreatitis without necrosis or infection (principal); K85.80 Other acute pancreatitis without necrosis or infection; F41.1 Generalized anxiety disorder

== ENCOUNTER → 2024-06-16 14:05 | Outpatient (BNVA) | payer OTHER, SELFPAY | PROVIDERS: PCP Physician Assistant; Visit Provider Internal Medicine | DX: K85.00 Idiopathic acute pancreatitis without necrosis or infection (principal); F41.1 Generalized anxiety disorder | CPT/HCPCS: 99212 ==

== ENCOUNTER 2024-06-17 09:07 | Outpatient (REF) | payer OTHER, SELFPAY ==
[2024-06-17 10:59] LABS: Hematocrit 38.6 % (42.0-52.0); Hemoglobin 12.9 g/dl (14.0-18.0); Mean Corpuscular HGB Conc 33.4 g/dl (31.0-36.0); Mean Corpuscular Hemoglobin 25.8 pg (27.0-33.0); Mean Corpuscular Volume 77.2 fL (80.0-98.0); Platelet Count 450 X10*3/uL (160-400); Red Cell Distribution Width 13.2 % (11.0-16.0); White Blood Count 6.5 X10*3/uL (4.8-10.8)
[2024-06-17 11:39] LABS: Anion Gap 12 (12-20); Blood Urea Nitrogen 13 mg/dL (9-16); Calcium 9.8 mg/dL (8.4-10.2); Carbon Dioxide 20 mmol/L (22-29); Chloride 106 mmol/L (96-108); Estimated Glomerular Filt Rate > 60; Glucose Random 113 mg/dL (60-115); Potassium 4.2 mmol/L (3.3-5.1); Sodium 134 mmol/L (135-145)
[2024-06-17 11:44] LABS: Amylase 334 U/L (28-100); Lipase 1209 U/L (8-78)
== END 2024-06-17 09:08 | disposition home or self-care (01) ==
LOC: HO.10HDL 09:07
PROVIDERS: Visit Provider Internal Medicine
DX: K85.80 Other acute pancreatitis without necrosis or infection (principal); K85.00 Idiopathic acute pancreatitis without necrosis or infection
CPT/HCPCS: 36415; 80048; 82150; 83690; 85027

== ENCOUNTER 2024-07-04 10:32 | Outpatient (REF) | payer OTHER, SELFPAY ==
[2024-07-04 13:53] LABS: C Reactive Protein < 0.10 mg/dL (< or = 0.50); Lipase 148 U/L (8-78)
[2024-07-04 14:54] LABS: Amylase 66 U/L (28-100)
== END 2024-07-04 10:33 | disposition home or self-care (01) ==
LOC: HO.10HDL 10:32
PROVIDERS: Visit Provider Internal Medicine
DX: K85.90 Acute pancreatitis without necrosis or infection, unspecified (principal); K85.80 Other acute pancreatitis without necrosis or infection
CPT/HCPCS: 36415; 82150; 83690; 86140

== ENCOUNTER 2024-07-15 08:02 | Outpatient (AMB) | payer OTHER, SELFPAY ==
[2024-07-15 08:16] VITALS: BP 118/76; PULSE 75; O2SAT 97; BMI 28.3
--- NOTE | 2024-07-15 08:16 | MHC.OFFWIV ---
Intake Vital Signs 07/15/24 08:16 Height 5 ft 11 in Weight 203 lb BMI 28.3 BP 118/76 Blood Pressure Location Rt brachial Position Sitting Pulse 75 Pulse Source Pulse Oximeter Pulse Oximetry (%) 97 Oxygen Delivery Method Room Air Intake Visit Reasons: EP Sinus concerns Intake Note: Pt is here today for a walk in visit. Pt c/o sinus pain and pressure congestion, green mucus headaches. Patient Tobacco Use Status: Former Tobacco user Allergies cetirizine [From [facility]] Adverse Reaction (Mild, Verified 07/15/24 08:19) Nightmare lactose Adverse Reaction (Unknown, Verified 07/15/24 08:19) Diarrhea HPI HPI Comments History of Present Illness Details This is a 44-year-old male with a past medical history of nasal polyps, hyperlipidemia, gastroesophageal reflux disease, DVT s/p IVC filter and colostomy in 1992 secondary to ulcerative colitis presenting for evaluation of sinus pressure, headaches, subjective fevers and green nasal discharge that is described as thick and foul smelling for the past 2-3 weeks. Patient has been using Afrin at an increased frequency, that he takes at baseline for his nasal polyps. Patient's last antibiotic therapy for acute sinusitis was June 20, 2023. [facility] Medical History (Updated 07/15/24 @ 09:03 by Cecelia Joe PA-C) CASSIA (generalized anxiety disorder) Sinusitis Presence of ileostomy Annual physical exam Presence of IVC filter Transaminitis Hypertriglyceridemia Inflammatory bowel diseases (IBD) Ulcerative colitis Sleep disorder breathing Infection of lip Lumbar disc herniation with radiculopathy Right knee injury Injury of lumbar spine Infected nasal abrasion Lumbar radiculopathy, chronic HLD (hyperlipidemia) Constipation by delayed colonic transit Allergic rhinitis Obesity Colitis Zinc deficiency B12 deficiency Vitamin D deficiency Chronic nasal congestion Nasal sinus congestion Obese Low libido GERD without esophagitis H/O deep venous thrombosis H/O acute pancreatitis Hypertriglyceridemia Surgical History History of ileostomy History of colectomy History of ileostomy History of resection of rectum Family History Father CVD (cardiovascular disease) Mother Hypertension Diabetes Maternal Grandmother Liver cancer Maternal Grandfather CVD (cardiovascular disease) Family/Other Diabetes Social History Household Members: Other Household Members Other:: girlfriend and children Housing: House Do you presently have visiting nurse or other home services: No Alcohol intake: never Patient Tobacco Use Status: Former Tobacco user e-Cigarette/Vaping Use: Never Used Second Hand Smoke Exposure: Yes Substance Use Type: Marijuana service: No Current occupational status: employed Current occupation: [employer] Cognitive needs: No Hearing needs: No Vision needs: No Review of Systems Const All systems reviewed & are unremarkable except as noted in HPI and below Reports fever(s) (subjective) and Denies headache(s) Eyes Reports no additional complaints ENT Denies otalgia, Denies headache(s), Reports nasal obstruction, Reports sinus pain, Reports sinus pressure, Denies sore throat and Denies throat swelling Card Reports no additional complaints and Denies dyspnea Resp Reports no additional complaints, Denies cough and Denies dyspnea Reports no additional complaints Musc Reports no additional complaints Skin/Breast Reports system reviewed and no additional complaints, except as documented Neuro Reports no additional complaints and Denies headache(s) Psych Reports no additional complaints Endo Reports no additional complaints Jarad/Lymph Reports no additional complaints Aller/Immun Reports no additional complaints and Denies throat swelling Physical Exam Vital Signs: Last Vital Signs Pulse 75 07/15/24 08:16 BP 118/76 07/15/24 08:16 Pulse Ox 97 07/15/24 08:16 Oxygen Delivery Method Room Air 07/15/24 08:16 BMI result Body Mass Index 28.3 Const General: cooperative, healthy appearing, comfortable and no acute distress Nutritional Appearance: average body habitus Orientation/consciousness: patient oriented x3 Limitations: no limitations HEENT Head: Yes normal to inspection and Yes normocephalic Ears: hearing grossly normal bilaterally, external ears normal, TM's abnormal bilaterally (TMs bulging with mild erythema bilaterally L >> R) and EAC's normal General nose exam: Normal external nose present and Nasal discharge present purulent and mucoid Face and sinus: Yes face symmetric and Yes sinus tenderness (maxillary > frontal) Mouth: Normal oral and palatal mucosa present Throat: Yes posterior oropharynx normal, Yes uvula midline and Yes postnasal drainage Eyes General: appearance normal, both eyes and all related structures Neck Lymphatic: no lymphadenopathy noted Resp Effort & Inspection: normal respiratory effort, able to speak in complete sentences, no audible wheezes, no cough and no respiratory distress Auscultation: clear to auscultation bilaterally Cardio Rate: regular rate Rhythm: regular rhythm Skin General skin exam: no rashes or lesions noted Neuro General: patient oriented x3 Psych Appearance: grossly normal Mental Status: mental status grossly normal Insight: Good insight present (Psych) Judgement: Good judgement present (Psych) Assessment & Plan Assessment & Plan (1) Acute bacterial sinusitis: Comment: Patient will follow up with ENT as an outpatient. Patient encouraged to use nasal sinus rinse daily; antibiotics and prednisone will be prescribed. Code(s): J01.90 - Acute sinusitis, unspecified; B96.89 - Other specified bacterial agents as the cause of diseases classified elsewhere Plan: Doxycycline b.i.d. x7 days, prednisone 40 mg x 4 days. Medications: New doxycycline hyclate 100 mg PO BID 14 caps 0RF prednisone 40 mg (2 x 20 mg) PO DAILY 8 tabs 0RF Coding Level of Care Code Est Pt Level 3 (85983) Diagnoses Acute bacterial sinusitis J01.90; B96.89 Time Spent (min) 20
== END 2024-07-15 09:36 | disposition home or self-care (01) ==
PROVIDERS: PCP Physician Assistant; Visit Provider Physician Assistant
DX: J01.90 Acute sinusitis, unspecified (principal); B96.89 Other specified bacterial agents as the cause of diseases classified elsewhere

== ENCOUNTER → 2024-07-15 08:02 | Outpatient (BNVA) | payer OTHER, SELFPAY | PROVIDERS: PCP Physician Assistant; Visit Provider Physician Assistant | DX: J01.90 Acute sinusitis, unspecified (principal); B96.89 Other specified bacterial agents as the cause of diseases classified elsewhere | CPT/HCPCS: 99212 ==

== ENCOUNTER 2024-08-08 10:44 | Outpatient (AMB) | payer OTHER, SELFPAY ==
--- NOTE | 2024-08-08 10:47 | MHC.PC.OV ---
Vital Signs 08/08/24 10:49 Height 5 ft 11 in Weight 197 lb 2 oz BMI 27.5 BP 130/70 Blood Pressure Location Lt brachial Position Sitting Pulse 73 Pulse Source Pulse Oximeter Temp 98 F Temp Source Skin Pulse Oximetry (%) 98 Oxygen Delivery Method Room Air Intake Visit Reasons: stomach virus Intake Note: Patient is here for hospital discharge follow up. Patient was discharged from [facility] on 08/06/24. Sociology Research Assistant Required: No Human Resources Project Manager: Present Accompanied by: Son Allergies cetirizine [From [facility]] Adverse Reaction (Mild, Verified 08/10/24 12:27) Nightmare lactose Adverse Reaction (Unknown, Verified 08/10/24 12:27) Diarrhea Medication List - Last Reconciled 08/08/24 by YVONNE Craig colostomy-[email or web address].set,nonsteril (Premier Colostomy-Ileostomy) As directed gemfibrozil 600 mg PO BID 30 days ibuprofen 800 mg PO Q8H PRN 10 days icosapent ethyl (Vascepa) 2 grams (2 x 1 gram) PO BID lorazepam 1 mg PO BEDTIME PRN metoprolol succinate ER 25 mg PO DAILY niacin ER 500 mg (2 x 250 mg) PO DAILY 90 days omeprazole 40 mg PO DAILY PRN ondansetron 8 mg PO Q12H PRN 15 days ostomy adhesive (Stomahesive Paste) As directed ostomy supplies (Skin Prep Wipes) As directed Tobacco use date assessed: 08/08/24 Dental Screening Dental Screen Date: 08/08/24 Did you have a dental visit in the last 12 months?: No Did you have a dental problem in the last 6 months where you did not have access to dental care?: No Was dental information given to patient?: No HPI stomach virus HPI Details The patient is a 44-year-old male who was presenting with post hospital follow up for nausea, vomiting, abdominal cramps, diarrhea and high output from his ileostomy This led to OBIE, lactic acidosis, presumed to be viral gastritis due to sick contacts. Patient reports that everyone in his household had the same symptoms He was treated with IV fluids and had gradual improvement in his renal function. At discharged his creatinine had improved to 0.9 which is close to his baseline. Nausea and vomiting improved he had been able to advance to a solid diet and was still reporting loose stool output from his ileostomy. The patient reports that he is presenting today because his ileostomy output had slowed down but the output has picked up again Reports that he can not keep up with the loose stool. He is trying to hydrate himself but seems like he is losing everything as soon has he drinks Patient is concern about his previous acute kidney injury from his decreased fluids. He wants to prevent the recurrence of a kidney injury. The patient reports that he is not peeing often and his urine has been yellow instead of clear. Denies any chest pain, shortness of breath, heart palpitation, dizziness Reports intermittent abdominal cramping and ongoing watery stool from ileostomy Denies dysuria [facility] Medical History (Updated 08/10/24 @ 13:05 by YVONNE Craig) CASSIA (generalized anxiety disorder) Sinusitis Presence of ileostomy Annual physical exam Presence of IVC filter Transaminitis Hypertriglyceridemia Inflammatory bowel diseases (IBD) Ulcerative colitis Sleep disorder breathing Infection of lip Lumbar disc herniation with radiculopathy Right knee injury Injury of lumbar spine Infected nasal abrasion Lumbar radiculopathy, chronic HLD (hyperlipidemia) Constipation by delayed colonic transit Allergic rhinitis Obesity Colitis Zinc deficiency B12 deficiency Vitamin D deficiency Chronic nasal congestion Nasal sinus congestion Obese Low libido GERD without esophagitis H/O deep venous thrombosis H/O acute pancreatitis Hypertriglyceridemia Surgical History History of ileostomy History of colectomy History of ileostomy History of resection of rectum Family History Father CVD (cardiovascular disease) Mother Hypertension Diabetes Maternal Grandmother Liver cancer Maternal Grandfather CVD (cardiovascular disease) Family/Other Diabetes Social History Household Members: Other Household Members Other:: girlfriend and children Housing: House Do you presently have visiting nurse or other home services: No Alcohol intake: never Patient Tobacco Use Status: Former Tobacco user e-Cigarette/Vaping Use: Never Used Second Hand Smoke Exposure: Yes Substance Use Type: Marijuana service: No Current occupational status: employed Current occupation: [employer] Cognitive needs: No Hearing needs: No Vision needs: No Questionnaire PHQ-9 Over the last 2 weeks, how often have you been bothered by any of the following problems? 1. Little interest or pleasure in doing things: not at all 2. Feeling down, depressed, or hopeless: not at all 3. Trouble falling or staying asleep, or sleeping too much: not at all 4. Feeling tired or having little energy: not at all 5. Poor appetite or overeating: not at all 6. Feeling bad about yourself - or that you are a failure or have let yourself or your family down: not at all 7. Trouble concentrating on things, such as reading the newspaper or watching television: not at all 8. Moving or speaking so slowly that other people could have noticed. Or the opposite - being so fidgety or restless that you have been moving around a lot more than usual: not at all 9. Thoughts that you would be better off or of hurting yourself in some way: not at all Total score: 0 Depression Screening Interpretation: Negative Depression Screening Done: Yes 64410 - PHQ-9 Billing: Yes Source: Developed by Drs. Augie Acosta, Radha Echavarria, Eros Robbins and colleagues, with an educational juli from [employer]. Thrive Questionnaire Date Thrive assessed: 08/08/24 I am a: Patient What is your living situation today?: I have a steady place to live Within the past 12 months, did the food you bought not last and you didn't have the money to get more?: Never true Within the past 12 months, did you worry whether your food would run out before you got money to buy more?: Never true Do you have trouble paying for medicines?: No Do you have trouble getting transportation to medical appointments?: No Do you have trouble paying your heating and electricity bill?: No Do you have trouble taking care of your child, family member or friend?: No Do you have trouble with day-to-day activities such as bathing, preparing meals, shopping, managing finances, etc.?: No Are you currently unemployed and looking for a job?: Yes Are you interested in more education?: No Please select the resources that you would like help with: None Currently or been in a relationship where the following occur: No concerns reported THRIVE Score: 0 AUDIT C Alcohol Use Questionnaire (AUDIT-C) 1. How often do you have a drink containing alcohol?: Never Total Score: 0 CASSIA-7 AMB Questionnaire CASSIA-7 Date CASSIA - 7 assessed: 08/08/24 Feeling nervous, anxious, or on edge: 0 = Not at all Not being able to stop or control worryin = Not at all Worrying too much about different things: 0 = Not at all Trouble relaxin = Not at all Being so restless that it is hard to sit still: 0 = Not at all Becoming easily annoyed or irritable: 0 = Not at all Feeling afraid as if something awful might happen: 0 = Not at all Total CASSIA-7 score (0-4 normal; 5-9 mild; 10-14 moderate; 15-21 severe): 0 Source: Developed by Drs. Augie Acosta, Radha Echavarria, Eros Robbins and colleagues, with an educational juli from [employer]. CASSIA-7 Assessment Billing CASSIA-7 Assessment Tool: CASSIA-7 Assessment 83153 Review of Systems Const Details: Denies chills, Denies fatigue, Denies fever(s), Denies headache(s) and Denies weakness HEENT Denies change in vision, Denies dizziness, Denies headache(s), Denies hearing loss, Denies nasal congestion, Denies sinus pain, Denies sinus pressure and Denies sore throat Card Denies chest pain, Denies lightheadedness, Denies dyspnea and Denies other (palpitations) Resp Denies cough, Denies dyspnea and Denies wheezing GI Denies abdominal pain, +abdominal cramping, Denies melena, Denies hematochezia, +watery diarrhea from ileostomy, Denies dyspepsia and Denies nausea Denies hematuria and Denies dysuria Skin/Breast Denies rash, Denies unusual bruising and Denies wounds Psych Denies anxiety, Denies depression and Denies memory loss Endo Denies cold intolerance, Denies fatigue, Denies heat intolerance, Denies polydipsia and Denies polyuria Jarad/Lymph Denies easy bleeding and Denies easy bruising Aller/Immun Denies wheezing Physical exam (Primary Care) Vital Signs: Last Vital Signs Temp 98 F 08/08/24 10:49 Pulse 73 08/08/24 10:49 BP 130/70 08/08/24 10:49 Pulse Ox 98 08/08/24 10:49 Oxygen Delivery Method Room Air 08/08/24 10:49 BMI result Body Mass Index 27.5 Tobacco/Smoking Status: Tobacco use Status Tobacco use date assessed 08/08/24 08/08/24 10:50 Patient Tobacco Use Status Former Tobacco user 08/08/24 10:50 e-Cigarette/Vaping Use Never Used 08/08/24 10:50 PHQ-9: PHQ-9 Score PHQ-9: Total score 0 08/08/24 11:03 Depression Screening Interpretation: Negative Thrive Assessment: Date of Thrive Assessment Date Thrive assessed 08/08/24 08/08/24 10:50 Currently or been in a relationship where the following occur: No concerns reported Const Other: General: no acute distress, well developed, alert and awake Nutritional Appearance: well nourished Orientation/consciousness: patient oriented x3 HENMT Head: Yes normocephalic and Yes atraumatic Eyes Pupils: Equal, round and reactive pupils present and Pupil accommodation reflex normal Neck Neck: Yes normal visual inspection, Yes no lymphadenopathy Resp Effort & Inspection: normal respiratory effort Auscultation: clear to auscultation bilaterally Cardio Rate: regular rate Rhythm: regular rhythm Heart sounds: S1 normal heart sound present, S2 normal heart sound present, no gallops, no murmurs and no rubs GI Palpation (GI): Abdominal is soft and nontender Auscultation: Hyperactive bowel sounds ileostomy in place to right lower abdomen General: Yes no CVA tenderness Skin General: warm and dry. Normal skin color. Normal skin turgor Lesions: no lesions Nails: normal Extrem General: Yes normal to inspection, No edema and No calf tenderness Psych Appearance: grossly normal Affect: normal affect Attitude: cooperative Thought process: Normal thought process present Coding Level of Care Code Est Pt Level 4 (92881) Diagnoses Watery stools R19.5 OBIE (acute kidney injury) N17.9 Gastroenteritis K52.9 Additional Codes PHQ-9 - 57487 - PHQ-9 Billing: Yes ([id number]) CASSIA-7 Assessment Billing - CASSIA-7 Assessment Tool: CASSIA-7 Assessment 89952 ([id number]) Time Spent (min) 36 Assessment & Plan Assessment & Plan (1) Watery stools: Code(s): R19.5 - Other fecal abnormalities Category: Medical Plan: Imodium 2 mg q.4 hours p.r.n. Discussed with patient to only use this medication to the point of his baseline stool consistency to prevent constipation Discussed with patient to increase fluids intake (2) OBIE (acute kidney injury): Code(s): N17.9 - Acute kidney failure, unspecified Category: Medical Plan: The patient reports that he is not pain often and his urine has been yellow instead of clear Increase fluid intake will repeat CMP in 1 week (3) Gastroenteritis: Code(s): K52.9 - Noninfective gastroenteritis and colitis, unspecified Category: Medical Plan: Norovirus suspected Imodium 2 mg q.4 hours p.r.n. Discussed with patient to only use this medication to the point of his baseline stool consistency to prevent constipation Discussed with patient to increase fluids intake Orders: Orders Comprehensive [place]. Panel Fast 1 Week R19.5 - Other fecal abnormalities, R74.8 - Abnormal levels of other serum enzymes Medications: New loperamide (Imodium A-D) administer after each loose stool until symptoms controlled; do not exceed 8 mg per 24 hrs 2 mg PO Q4H PRN 60 caps 0RF loose stool R19.5 - Other fecal abnormalities
[2024-08-08 10:49] VITALS: BP 130/70; PULSE 73; TEMP 36.6; O2SAT 98; BMI 27.5
--- OUTSIDE RECORDS SUMMARY | 2024-08-08 11:46 | XMS_ITS | Clinical Summary ---
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 Name Role Phone Unavailable Primary Care Provider Unavailabl e Social History Tobacco Use Types Packs/Day Years Used Date Smoking Tobacco: Never Assessed Sex and Gender Information Value Date Recorded Sex Assigned at Not on file Gender Identity Not on file Sexual Orientation Not on file Plan of Treatment Health Maintenance Due Date Last Done Comments Hepatitis C Virus Screening 1980 HIV Screening 1993 DTaP/Tdap/Td Vaccines (1 - Tdap) 1999 Hepatitis B Vaccines (1 of 3 - 19+ 3-dose series) 1999 COVID-19 Vaccine (2023-2 5 season) 2024 HPV Vaccines Aged Out No longer eligi ble based on patient's age to complete this topic Pneumococcal Vaccine: Pediat jeremiah (0-5 Years) and At-Risk Patients (6 to 49 Years) Aged Out No longer eligible b ased on patient's age to complete this topic
--- OUTSIDE RECORDS SUMMARY | 2024-08-08 11:46 | XMS_ITS | Patient Health Record ---
Author Organization [facility] Address [address] [place] [address] Care Team Providers Care Wool Washer Feeder Name Role Phone Dayton Gould Primary Care Provider Unavailab Pilo Johnson Jr Unavailable ALLERGIES No Known Allergies REASON FOR REFERRAL No Information MEDICATIONS Medication SIG (Take, Route, Frequency, Duration) Notes Start Date End Date Status Fenofibrate 160 MG Oral for 30 Active Mometasone Furoate 50 MCG/ACT Nasal for 30 Active ALPRAZolam 1 MG (Schedule IV Drug) T MARCELA 1 TABLET BY MOUTH EVERY DAY AT BEDTIME Oral for 30 Active Atorvastatin Calcium 40 MG Oral for 30 Active clonazePAM 1 MG Oral for 30 Ac tive IMMUNIZATIONS Vaccine Route Administration Date Status Comme nts Influenza Unknown 02/21/2021 Administered Influenza Unknown 05/31/2022 Refused SOCIAL HISTORY Sex Assigned At : Social History Observation Description Sex Assigned At Unknown Alcohol Screen Question Answer Notes Did you have a drink containing alcohol in the p ast year? No Points 0 Interpretation Negative PROBLEMS Problem Type ICD Code Onset Dates Problem Status W/U Status Risk SNOMED Code Notes Problem Ileostomy status (Z93.2) Active confirmed 522260110 Problem Ulcerative colitis without complications, unspecified location (K51.90) Active confirmed 48452143 Problem Hypertriglyceridemia (E78.1) Active confirmed Hypertriglyceri demia (365896277) Problem Pancreatitis (K85.90) Active confirmed Pancreatitis (36801610) Problem Acute pancreatitis without infection or necrosis, unspecified pancreatitis type (K85.90) Active confirmed 782959677 Problem Ulcerative colitis, unspecified (K51.90) Active confirmed 00961149 PLAN OF TREATMENT Pending Test Test Name Order Date LIVER PROFILE 05/31/2022 Triglycerides 05/31/2022 Lipase 05/31/2022 Insurance Providers Payer Name Payer Address Payer Phone Subscriber Number Group Number Insured Name Patient Relationship to Insured Coverage Start Date Coverage End Date [facility] [employer] [facility] [address] [address] [place], [place] [id number] KAMARI DELEON Self - patient is the insured MEDICAL (GENERAL) HISTORY Medical History History ICD Code DVT Ulcerative colitis status po st J-pouch, takedown and APR with 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 pancreatitis Pancreatitis and hospitaliza tions in 11/2021 and 05/2022--TG's > 4000 in 05/2022---noncompliant with medication Surgical History Surgery Date(Month/Year) IVC filter placement 1999 Ileostomy surgeries x 6
== END 2024-08-08 11:24 | disposition home or self-care (01) ==
PROVIDERS: PCP Physician Assistant
DX: R19.5 Other fecal abnormalities (principal); N17.9 Acute kidney failure, unspecified; K52.9 Noninfective gastroenteritis and colitis, unspecified

== ENCOUNTER → 2024-08-08 10:44 | Outpatient (BNVA) | payer OTHER, SELFPAY | PROVIDERS: PCP Physician Assistant | DX: R19.5 Other fecal abnormalities (principal); K52.9 Noninfective gastroenteritis and colitis, unspecified; N17.9 Acute kidney failure, unspecified | CPT/HCPCS: 96127; 99212 ==

== ENCOUNTER 2024-08-21 14:52 | Outpatient (AMB) | payer OTHER, SELFPAY ==
[2024-08-21 15:01] VITALS: BP 120/86; PULSE 75; O2SAT 97; BMI 28.0
--- NOTE | 2024-08-21 15:01 | MHC.PC.OV ---
Vital Signs 08/21/24 15:01 Height 5 ft 11 in Weight 200 lb 8 oz BMI 28.0 BP 120/86 Blood Pressure Location Lt brachial Position Sitting Pulse 75 Pulse Source Pulse Oximeter Pulse Oximetry (%) 97 Oxygen Delivery Method Room Air Intake Visit Reasons: pluged up nose and a rash [employer] Insurance Required: No Accompanied by: Self / Same As Patient Allergies cetirizine [From [facility]yrte] Adverse Reaction (Mild, Verified 08/21/24 15:35) Nightmare lactose Adverse Reaction (Unknown, Verified 08/21/24 15:35) Diarrhea Medication List - Last Reconciled 08/21/24 by Nneka Stanley PA-C amoxicillin-pot clavulanate 875-125 mg 1 tab PO BID 10 days colostomy-Ileost.set,nonsteril (Premier Colostomy-Ileostomy) As directed gemfibrozil 600 mg PO BID 30 days ibuprofen 800 mg PO Q8H PRN 10 days icosapent ethyl (Vascepa) 2 grams (2 x 1 gram) PO BID loperamide (Imodium A-D) 2 mg PO Q4H PRN loratadine-pseudoephedrine 5-120 mg ER (Claritin-D 12 Hour) 1 tab PO Q12H lorazepam 1 mg PO BEDTIME PRN metoprolol succinate ER 25 mg PO DAILY niacin ER 500 mg (2 x 250 mg) PO DAILY 90 days omeprazole 40 mg PO DAILY PRN ondansetron 8 mg PO Q12H PRN 15 days ostomy adhesive (Stomahesive Paste) As directed ostomy supplies (Skin Prep Wipes) As directed prednisone 40 mg (2 x 20 mg) PO DAILY 5 days Tobacco use date assessed: 08/21/24 Dental Screening Dental Screen Date: 08/21/24 Did you have a dental visit in the last 12 months?: No Did you have a dental problem in the last 6 months where you did not have access to dental care?: No Was dental information given to patient?: No PFSH Medical History Ileostomy dysfunction CASSIA (generalized anxiety disorder) Sinusitis Presence of ileostomy Annual physical exam Presence of IVC filter Transaminitis Hypertriglyceridemia Inflammatory bowel diseases (IBD) Ulcerative colitis Sleep disorder breathing Infection of lip Lumbar disc herniation with radiculopathy Right knee injury Injury of lumbar spine Infected nasal abrasion Lumbar radiculopathy, chronic HLD (hyperlipidemia) Constipation by delayed colonic transit Allergic rhinitis Obesity Colitis Zinc deficiency B12 deficiency Vitamin D deficiency Chronic nasal congestion Nasal sinus congestion Obese Low libido GERD without esophagitis H/O deep venous thrombosis H/O acute pancreatitis Hypertriglyceridemia Surgical History History of ileostomy History of colectomy History of ileostomy History of resection of rectum Family History Father CVD (cardiovascular disease) Mother Hypertension Diabetes Maternal Grandmother Liver cancer Maternal Grandfather CVD (cardiovascular disease) Family/Other Diabetes Social History Household Members: Other Household Members Other:: girlfriend and children Housing: House Do you presently have visiting nurse or other home services: No Alcohol intake: never Patient Tobacco Use Status: Former Tobacco user e-Cigarette/Vaping Use: Never Used Second Hand Smoke Exposure: Yes Substance Use Type: Marijuana service: No Current occupational status: employed Current occupation: [employer] Cognitive needs: No Hearing needs: No Vision needs: No Questionnaire PHQ-9 Over the last 2 weeks, how often have you been bothered by any of the following problems? 1. Little interest or pleasure in doing things: not at all 2. Feeling down, depressed, or hopeless: not at all 3. Trouble falling or staying asleep, or sleeping too much: not at all 4. Feeling tired or having little energy: not at all 5. Poor appetite or overeating: not at all 6. Feeling bad about yourself - or that you are a failure or have let yourself or your family down: not at all 7. Trouble concentrating on things, such as reading the newspaper or watching television: not at all 8. Moving or speaking so slowly that other people could have noticed. Or the opposite - being so fidgety or restless that you have been moving around a lot more than usual: not at all 9. Thoughts that you would be better off or of hurting yourself in some way: not at all Total score: 0 Depression Screening Interpretation: Negative Depression Screening Done: Yes 50556 - PHQ-9 Billing: Yes Source: Developed by Drs. Augie Acosta, Eros Tapia and colleagues, with an educational juli from [employer]. Thrive Questionnaire Date Thrive assessed: 08/21/24 I am a: Patient What is your living situation today?: I have a steady place to live Within the past 12 months, did the food you bought not last and you didn't have the money to get more?: Never true Within the past 12 months, did you worry whether your food would run out before you got money to buy more?: Never true Do you have trouble paying for medicines?: No Do you have trouble getting transportation to medical appointments?: No Do you have trouble paying your heating and electricity bill?: No Do you have trouble taking care of your child, family member or friend?: No Do you have trouble with day-to-day activities such as bathing, preparing meals, shopping, managing finances, etc.?: No Are you currently unemployed and looking for a job?: Yes Are you interested in more education?: No Please select the resources that you would like help with: None Currently or been in a relationship where the following occur: No concerns reported THRIVE Score: 0 AUDIT C Alcohol Use Questionnaire (AUDIT-C) 1. How often do you have a drink containing alcohol?: Never 3. How often do you have six or more drinks on one occasion?: Never Total Score: 0 Score Reviewed/Action Taken: Yes CASSIA-7 AMB Questionnaire CASSIA-7 Date CASSIA - 7 assessed: 08/21/24 Feeling nervous, anxious, or on edge: 0 = Not at all Not being able to stop or control worryin = Not at all Worrying too much about different things: 0 = Not at all Trouble relaxin = Not at all Being so restless that it is hard to sit still: 0 = Not at all Becoming easily annoyed or irritable: 0 = Not at all Feeling afraid as if something awful might happen: 0 = Not at all Total CASSIA-7 score (0-4 normal; 5-9 mild; 10-14 moderate; 15-21 severe): 0 Source: Developed by Radha Wells Kurt Kroenke and colleagues, with an educational juli from [employer]. CASSIA-7 Assessment Billing CASSIA-7 Assessment Tool: CASSIA-7 Assessment 42750 Physical exam (Primary Care) Vital Signs: Last Vital Signs Pulse 75 08/21/24 15:01 BP 120/86 08/21/24 15:01 Pulse Ox 97 08/21/24 15:01 Oxygen Delivery Method Room Air 08/21/24 15:01 Care Plan Goal for BP management: 130/80 BMI result Body Mass Index 28.0 BMI Assessment/Plan discussion: High BMI High, discussed plan: lifestyle, weight reduction, dietary, physical activity and alcohol moderation Tobacco/Smoking Status: Tobacco use Status Tobacco use date assessed 08/21/24 08/21/24 15:03 Patient Tobacco Use Status Former Tobacco user 08/21/24 15:03 e-Cigarette/Vaping Use Never Used 08/21/24 15:03 PHQ-9: PHQ-9 Score PHQ-9: Total score 0 08/21/24 15:03 Depression Screening Interpretation: Negative Thrive Assessment: Date of Thrive Assessment Date Thrive assessed 08/21/24 08/21/24 15:03 Currently or been in a relationship where the following occur: No concerns reported Coding Level of Care Code Est Pt Level 4 (63894) Complex EM visit Add On G2211 Diagnoses Ileostomy dysfunction K94.13 Acute recurrent frontal sinusitis J01.11 Sinusitis location: frontal Chronicity: acute Recurrence: recurrent Additional Codes CASSIA-7 Assessment Billing - CASSIA-7 Assessment Tool: CASSIA-7 Assessment 33303 ([id number]) PHQ-9 - 59474 - PHQ-9 Billing: Yes ([id number]) Assessment & Plan Assessment & Plan (1) Ileostomy dysfunction: Code(s): K94.13 - Enterostomy malfunction Category: Medical Plan: Concerned for ileostomy dysfunction due to decreased stool output and patient will have to push on his lower abdomen to have the stool be pushed out. Will refer to General surgery at this time. Explained to patient if he develops any fevers, nausea vomiting and inability to push the stools out of the ileostomy that he will need to go to the emergency department immediately. Patient understands. Will continue to monitor. (2) Sinusitis: Code(s): J32.9 - Chronic sinusitis, unspecified Category: Medical Qualifiers: Sinusitis location: frontal Chronicity: acute Recurrence: recurrent Qualified Code(s): J01.11 - Acute recurrent frontal sinusitis Plan: Patient will be started on Augmentin. Claritin D. Short course of prednisone as patient reports this helped in the past. With instructions to follow up with PCP. Condition is stable will continue to monitor. Plan Plan - Prescribe Augmentin 875 mg twice daily for 10 days. - Prescribe Prednisone 20 mg twice daily for 5 days. - Recommend Claritin D for sinus relief; advise a usage cycle of 3 days with a subsequent 1-2 day break. - Refer to general surgery for evaluation of potential hernia or blockage at colostomy site. - Order CBC and CMP to assess renal function and infection signs. Orders: Orders Complete Blood Count Auto Diff Today Z00.00 - Encounter for general adult medical examination without abnormal findings Comprehensive Met. Panel Today Z00.00 - Encounter for general adult medical examination without abnormal findings Referrals General Surgery Referral K94.13 - Enterostomy malfunction Medications: New amoxicillin-pot clavulanate 875-125 mg 1 tab PO BID 20 tabs 0RF 10 days prednisone 40 mg (2 x 20 mg) PO DAILY 10 tabs 0RF 5 days loratadine-pseudoephedrine 5-120 mg ER (Claritin-D 12 Hour) 1 tab PO Q12H 30 tabs 0RF Patient Instructions: Patient Instructions - Take Augmentin as prescribed; complete the full course. - Take Prednisone as directed for 5 days. - Use Claritin D as recommended, limiting to 3 consecutive days of use with breaks. - Watch for any increase in abdominal pain, severe constipation, or inability to pass stool?seek ER care if this occurs. - Expect a call from the general surgeon for evaluation. - Follow up with Sharan for appointment in August, including blood work as advised. - Contact the office if symptoms worsen or if further guidance is needed. Scribe Plan - Not visible on output: History of Present Illness The patient is a 44-year-old male presenting with chronic sinusitis and associated nasal congestion and rash to his nares. He reports a long-standing history of this condition, which is accompanied by a plugged nose and development of rash on the inside of the nose. The patient describes the condition as persistent, with chronic management difficulties due to missed appointments and rejection from medical care providers. Prednisone provided relief during a previous urgent care visit where he was given a 10-20 mg dosage. The nasal congestion has been persistent, with accompanying occasional headaches and a feeling of pressure without fever or significant ear pain. Past episodes have led to chronic kidney disease exacerbations, particularly notable when dehydration occurred secondary to previous pancreatitis and recent episodes of diarrhea. The patient notes that dehydration resulted in hospital admission for fluid resuscitation. He has also experienced ileostomy complications, having had an ileostomy patient reports he recently lifted something heavy and since then he has been having abdominal distention around the ileostomy/stoma site and reduced stool output. He reports he has to push on his abdomen to have the rest of the stools come out. He denies any fevers, nausea or vomiting, black or bloody stools. 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 - Family: Lives with family members, including a son who was recently sick. - Medical Resources: Discusses missing medical appointments due to lack of availability. Review of Systems - Ear, Nose, and Throat: Reports nasal congestion, plugged nose, headaches, and nasal rash without sore throat or fever. - Gastrointestinal: Denies recent diarrhea but reports history of reduced stool output and abdominal fullness. - Respiratory: Denies chest pain but experienced coughing during morning hours. - Neurological: Reports occasional neck stiffness and associated headaches. - Constitutional: History of recent dehydration episodes but currently denies fever. Physical Exam Appearance: Alert. Oriented X3. No acute distress. Head: Normal external exam. Normocephalic. Atraumatic. Eyes: Pupils are equal, round, and reactive to light. Extraocular movements intact. Conjunctiva and sclera normal. Eyelids normal. Ears: External auditory canal normal. Tympanic membranes normal. Nares with nasal congestion noted. Dry dermatitis noted to nares. No signs of acute cellulitis infection. Throat: Pharynx normal. Uvula midline. Moist mucous membranes. Normal voice. No trismus drooling or stridor is noted. Neck: Normal inspection. Neck supple. Full range of motion. No adenopathy. Thyroid Normal. No meningeal signs. No neck mass noted. Cardiovascular: Normal heart rate and rhythm. Heart sound normal. No murmurs noted. Pulses normal throughout. Respiratory: No respiratory distress. Painless inspiration. Breath sounds normal. No wheezes/rales/rhonchi noted. Chest nontender. No accessory muscle usage noted or decreased air movement noted. Abdomen: Soft and mild tenderness to the ileostomy site. There is no signs of infection, bloody drainage. He is noted to have stool that is brown in color in the ileostomy bag. There is distention over the site of the ileostomy/stoma site. Bowel sounds normal in all 4 quadrants. No organomegaly noted. No visible injury noted. Back: No costovertebral angle tenderness. Full range of motion noted. Skin: Skin warm and dry. Normal skin color. Normal skin turgor. Rash noted inside the nose. Extremities: No lower extremity edema. Extremities exhibit normal range of motion. Extremities nontender. Neuro: Oriented X 3. No motor deficit. No sensory deficit. Reflexes normal. Plan - Prescribe Augmentin 875 mg twice daily for 10 days. - Prescribe Prednisone 20 mg twice daily for 5 days. - Recommend Claritin D for sinus relief; advise a usage cycle of 3 days with a subsequent 1-2 day break. - Refer to general surgery for evaluation of potential hernia or blockage at colostomy site. - Order CBC and CMP to assess renal function and infection signs. Patient was informed and verbally consented to the use of an ambient scribe for clinic note documentation during this visit. Discussion Notes I discussed with the patient the likelihood of chronic sinusitis exacerbation with associated gastrointestinal and renal complications. Management would include Augmentin and Prednisone for sinusitis, while considering potential surgery evaluation for the ileostomy complication to ensure no hernia or significant obstruction is present. The use of Claritin D was advised to alleviate sinus symptoms, with caution to avoid prolonged use to prevent dehydration. The need for general surgery referral was emphasized, along with the risks of potential obstruction and the steps such as imaging or focused intervention that may be required. I instructed the patient on recognizing signs of severe obstruction and advised immediate ER visit if symptoms worsen. Follow-up with blood tests was planned to assess kidney function and infection markers. Patient Instructions - Take Augmentin as prescribed; complete the full course. - Take Prednisone as directed for 5 days. - Use Claritin D as recommended, limiting to 3 consecutive days of use with breaks. - Watch for any increase in abdominal pain, severe constipation, or inability to pass stool?seek ER care if this occurs. - Expect a call from the general surgeon for evaluation. - Follow up with Sharan for appointment in August, including blood work as advised. - Contact the office if symptoms worsen or if further guidance is needed.
--- OUTSIDE RECORDS SUMMARY | 2024-08-21 16:00 | XMS_ITS | Clinical Summary ---
Author Organization [facility] Address [address] [place] [address] Care Team Providers Care Amf Mechanic Name Role Phone Unavailable Primary Care Provider [...]
--- OUTSIDE RECORDS SUMMARY | 2024-08-21 16:00 | XMS_ITS | Patient Health Record ---
Author Organization [facility] Address [address] [place] [address] Care Team Providers Care Machine Tool Operator Name Role Phone Dayton Gould Primary Care [...] Notes Problem Ileostomy status (Z93.2) Active confirmed 123508255 Problem Ulcerative colitis without complications, unspecified location (K51.90) Active confirmed 62893956 Problem Hypertriglyceridemia (E78.1) Active confirmed Hypertriglyceri demia (401184310) Problem Pancreatitis (K85.90) Active confirmed Pancreatitis (72866639) Problem Acute pancreatitis without infection or necrosis, unspecified pancreatitis type (K85.90) Active confirmed 933734703 Problem Ulcerative colitis, unspecified (K51.90) Active confirmed 61584103 PLAN OF TREATMENT Pending Test Test Name Order Date LIVER PROFILE 05/31/2022 Triglycerides 05/31/2022 Lipase 05/31/2022 Insurance Providers Payer Name Payer Address Payer Phone Subscriber Number Group Number Insured Name Patient Relationship to Insured Coverage Start Date Coverage End Date [facility] Plan [address] [address] [place], [place] [id number] KAMARI DELEON Self - patient is the [...]
== END 2024-08-21 15:36 | disposition home or self-care (01) ==
PROVIDERS: PCP Physician Assistant; Visit Provider Physician Assistant Medical
DX: K94.13 Enterostomy malfunction (principal); J01.11 Acute recurrent frontal sinusitis

== ENCOUNTER → 2024-08-21 14:52 | Outpatient (BNVA) | payer OTHER, SELFPAY | PROVIDERS: PCP Physician Assistant; Visit Provider Physician Assistant Medical | DX: K94.13 Enterostomy malfunction (principal); J01.11 Acute recurrent frontal sinusitis | CPT/HCPCS: 96127; 99212 ==

== ENCOUNTER 2024-08-27 12:51 | Outpatient (AMB) | payer OTHER, SELFPAY ==
--- NOTE | 2024-08-27 12:52 | MHC.OFFVIS ---
Vital Signs 08/27/24 13:00 Height 5 ft 11 in Weight 205 lb BMI 28.6 Intake Visit Reasons: Enterostomy malfunction Intake Note: This patient presents for enterostomy malfuction. Pt c/o; bulge to ileostomy with decreased stool output (pcp note), no complaints. Vp Product Management Required: No Accompanied by: Self / Same As Patient Allergies cetirizine [From [facility]] Adverse Reaction (Mild, Verified 08/27/24 13:02) Nightmare lactose Adverse Reaction (Unknown, Verified 08/27/24 13:02) Diarrhea Medication List - Last Reconciled 08/27/24 by Ignacio Harris MD amoxicillin-pot clavulanate 875-125 mg 1 tab PO BID 10 days colostomy-Ileost.set,nonsteril (Premier Colostomy-Ileostomy) As directed gemfibrozil 600 mg PO BID 30 days ibuprofen 800 mg PO Q8H PRN 10 days icosapent ethyl (Vascepa) 2 grams (2 x 1 gram) PO BID loperamide (Imodium A-D) 2 mg PO Q4H PRN loratadine-pseudoephedrine 5-120 mg ER (Claritin-D 12 Hour) 1 tab PO Q12H lorazepam 1 mg PO BEDTIME PRN metoprolol succinate ER 25 mg PO DAILY niacin ER 500 mg (2 x 250 mg) PO DAILY 90 days omeprazole 40 mg PO DAILY PRN ondansetron 8 mg PO Q12H PRN 15 days ostomy adhesive (Stomahesive Paste) As directed ostomy supplies (Skin Prep Wipes) As directed prednisone 40 mg (2 x 20 mg) PO DAILY 5 days HPI HPI Enterostomy malfunction: Details: 44-year-old male here to have his ileostomy checked. He has had an ileostomy since he was 13 years old for what he describes as ulcerative colitis. He says that about 2 weeks ago, he went to the ER at [facility] because of what he describes as cramping on his abdomen. He says that he had a flu around that time. He says that he had a CAT scan done in the ER there which did not show anything remarkable. He was referred to me to have this ileostomy tract He says that this has been otherwise functioning well. He says he was worried because many years ago, he was told that the ileostomy may be a little tight. He has good oral intake. He feels well overall. [facility] Medical History Ileostomy dysfunction CASSIA (generalized anxiety disorder) Sinusitis Presence of ileostomy Annual physical exam Presence of IVC filter Transaminitis Hypertriglyceridemia Inflammatory bowel diseases (IBD) Ulcerative colitis Sleep disorder breathing Infection of lip Lumbar disc herniation with radiculopathy Right knee injury Injury of lumbar spine Infected nasal abrasion Lumbar radiculopathy, chronic HLD (hyperlipidemia) Constipation by delayed colonic transit Allergic rhinitis Obesity Colitis Zinc deficiency B12 deficiency Vitamin D deficiency Chronic nasal congestion Nasal sinus congestion Obese Low libido GERD without esophagitis H/O deep venous thrombosis H/O acute pancreatitis Hypertriglyceridemia Surgical History History of ileostomy History of colectomy History of ileostomy History of resection of rectum Family History Father CVD (cardiovascular disease) Mother Hypertension Diabetes Maternal Grandmother Liver cancer Maternal Grandfather CVD (cardiovascular disease) Family/Other Diabetes Social History Household Members: Other Household Members Other:: girlfriend and children Housing: House Do you presently have visiting nurse or other home services: No Alcohol intake: never Patient Tobacco Use Status: Former Tobacco user e-Cigarette/Vaping Use: Never Used Second Hand Smoke Exposure: Yes Substance Use Type: Marijuana service: No Current occupational status: employed Current occupation: [employer] Cognitive needs: No Hearing needs: No Vision needs: No Review of Systems Const Denies chills and Denies fever(s) Card Denies chest pain, Denies dyspnea and Denies dyspnea on exertion Resp Denies cough, Denies dyspnea and Denies dyspnea on exertion GI Details: Has ileostomy Denies hematochezia and Denies change in bowel habits Denies hematuria and Denies difficulty urinating Musc Denies back pain and Denies limited range of motion Neuro Denies focal weakness and Denies convulsions Psych Denies depression and Denies mood swings Physical Exam Const General: comfortable and no acute distress Orientation/consciousness: patient oriented x3 Neck Neck: Yes no lymphadenopathy Resp Auscultation: clear to auscultation bilaterally Cardio Rhythm: regular rhythm GI Other: Ileostomy in the right side functioning well, viable, with output Palpation (GI): Soft to palpation, nontender and no guarding Neuro General: patient oriented x3 Assessment & Plan Assessment & Plan (1) Presence of ileostomy: Code(s): Z93.2 - Ileostomy status Category: Medical Plan: He is ileostomy appears to be functioning well. He had a CAT scan done in [facility] 2 weeks ago and he says that this was unremarkable I do not see any surgical issues at this time. His abdomen is soft and benign. He feels well overall. He has good oral intake. He says that he is ileostomy has had good output. I did tell him that if he has questions down the line about his ileostomy, he can return to the office to be re-evaluated. He has comfortable with the plan. Coding Level of Care Code New Pt Level 3 (12343) Diagnoses Presence of ileostomy Z93.2
[2024-08-27 13:00] VITALS: BMI 28.6
--- OUTSIDE RECORDS SUMMARY | 2024-08-27 15:44 | XMS_ITS | Patient Health Record ---
Author Organization [facility] Address [address] [place] [address] Care Team Providers Care Pit Shoveler Name Role Phone Dayton Gould Primary Care Provider Unavailab Pilo Johnson Jr Unavailable [phone] ALLERGIES No Known Allergies REASON FOR REFERRAL [...] Notes Problem Ileostomy status (Z93.2) Active confirmed [id number] Problem Ulcerative colitis without complications, unspecified location (K51.90) Active confirmed 18153350 Problem Hypertriglyceridemia (E78.1) Active confirmed Hypertriglyceri demia (723107882) Problem Pancreatitis (K85.90) Active confirmed Pancreatitis (73810265) Problem Acute pancreatitis without infection or necrosis, unspecified pancreatitis type (K85.90) Active confirmed 363479672 Problem Ulcerative colitis, unspecified (K51.90) Active confirmed 11778615 PLAN OF TREATMENT Pending Test Test Name Order Date LIVER PROFILE 05/31/2022 Triglycerides 05/31/2022 Lipase 05/31/2022 Insurance Providers Payer Name Payer Address Payer Phone Subscriber Number Group Number Insured Name Patient Relationship to Insured Coverage Start Date Coverage End Date [facility] Plan [address] [address] [place], [place] [id number] KAMARI DELEON Self - patient is the [...]
--- OUTSIDE RECORDS SUMMARY | 2024-08-27 15:44 | XMS_ITS | Clinical Summary ---
Author Organization [facility] Address [address] [place] [address] Care Team Providers Care Doctor Of Podiatry Name Role Phone Unavailable Primary Care Provider [...]
== END 2024-08-27 13:05 | disposition home or self-care (01) ==
PROVIDERS: PCP Physician Assistant; Visit Provider Surgery
DX: Z93.2 Ileostomy status (principal)
CPT/HCPCS: 99213

== ENCOUNTER → 2024-08-27 12:51 | Outpatient (BNVA) | payer OTHER, SELFPAY | PROVIDERS: PCP Physician Assistant; Visit Provider Surgery | DX: Z93.2 Ileostomy status (principal) | CPT/HCPCS: 99212 ==

== ENCOUNTER 2024-12-05 12:53 | Outpatient (AMB) | payer OTHER, SELFPAY ==
[2024-12-05 12:55] VITALS: BP 120/84; PULSE 85; O2SAT 95; BMI 29.2
--- NOTE | 2024-12-05 12:55 | A.OFFPC_ITS ---
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: No Accompanied by: Self / Same As Patient Allergies cetirizine [From Zyrtec] Adverse Reaction (Mild, Verified 12/05/24 12:56) Nightmare lactose Adverse Reaction (Unknown, Verified 12/05/24 12:56) Diarrhea Tobacco use date assessed: 12/05/24 Dental Screening Dental Screen Date: 12/05/24 Did you have a dental visit in the last 12 months?: No Did you have a dental problem in the last 6 months where you did not have access to dental care?: No Was dental information given to patient?: No HPI HPI Comments History of Present Illness Details 44 y/o Male patient who presents to the clinic today for EDF. He was admitted at [facility] on 11/30 for evaluation and treatment of Mid Back Muscle strain. He was prescribed NSAIDs and Flexeril with some relief. Pt asking for Extended leave of abscess from work due to pain and inability to continue lifting heavy equipments at work. Pt dropped FMLA paperwork at the Desk for PCP to fill out. REPLACED BY [facility] Medical History (Updated 12/05/24 @ 14:05 by Cinthya Shane NP) Trapezius muscle strain Ileostomy dysfunction CASSIA (generalized anxiety disorder) Sinusitis Presence of ileostomy Annual physical exam Presence of IVC filter Transaminitis Hypertriglyceridemia Inflammatory bowel diseases (IBD) Ulcerative colitis Sleep disorder breathing Infection of lip Lumbar disc herniation with radiculopathy Right knee injury Injury of lumbar spine Infected nasal abrasion Lumbar radiculopathy, chronic HLD (hyperlipidemia) Constipation by delayed colonic transit Allergic rhinitis Obesity Colitis Zinc deficiency B12 deficiency Vitamin D deficiency Chronic nasal congestion Nasal sinus congestion Obese Low libido GERD without esophagitis H/O deep venous thrombosis H/O acute pancreatitis Hypertriglyceridemia Surgical History History of ileostomy History of colectomy History of ileostomy History of resection of rectum Family History Father CVD (cardiovascular disease) Mother Hypertension Diabetes Maternal Grandmother Liver cancer Maternal Grandfather CVD (cardiovascular disease) Family/Other Diabetes Social History Household Members: Other Household Members Other:: girlfriend and children Housing: House Do you presently have visiting nurse or other home services: No Alcohol intake: never Patient Tobacco Use Status: Former Tobacco user e-Cigarette/Vaping Use: Never Used Second Hand Smoke Exposure: Yes Substance Use Type: Marijuana service: No Current occupational status: employed Current occupation: [employer] Cognitive needs: No Hearing needs: No Vision needs: No Questionnaire PHQ-9 Over the last 2 weeks, how often have you been bothered by any of the following problems? 1. Little interest or pleasure in doing things: not at all 2. Feeling down, depressed, or hopeless: not at all 3. Trouble falling or staying asleep, or sleeping too much: not at all 4. Feeling tired or having little energy: not at all 5. Poor appetite or overeating: not at all 6. Feeling bad about yourself - or that you are a failure or have let yourself or your family down: not at all 7. Trouble concentrating on things, such as reading the newspaper or watching television: not at all 8. Moving or speaking so slowly that other people could have noticed. Or the opposite - being so fidgety or restless that you have been moving around a lot more than usual: not at all 9. Thoughts that you would be better off or of hurting yourself in some way: not at all Total score: 0 Source: Developed by Drs. Augie Acosta, Radha Echavarria, Eros Robbins and colleagues, with an educational juli from [employer]. Thrive Questionnaire Date Thrive assessed: 12/05/24 I am a: Patient What is your living situation today?: I have a steady place to live Within the past 12 months, did the food you bought not last and you didn't have the money to get more?: Never true Within the past 12 months, did you worry whether your food would run out before you got money to buy more?: Never true Do you have trouble paying for medicines?: No Do you have trouble getting transportation to medical appointments?: No Do you have trouble paying your heating and electricity bill?: No Do you have trouble taking care of your child, family member or friend?: No Do you have trouble with day-to-day activities such as bathing, preparing meals, shopping, managing finances, etc.?: No Are you currently unemployed and looking for a job?: No Are you interested in more education?: No Please select the resources that you would like help with: None Currently or been in a relationship where the following occur: No concerns reported THRIVE Score: 0 AUDIT C Alcohol Use Questionnaire (AUDIT-C) 1. How often do you have a drink containing alcohol?: Never 3. How often do you have six or more drinks on one occasion?: Never Total Score: 0 CASSIA-7 AMB Questionnaire CASSIA-7 Date CASSIA - 7 assessed: 12/05/24 Feeling nervous, anxious, or on edge: 0 = Not at all Not being able to stop or control worryin = Not at all Worrying too much about different things: 0 = Not at all Trouble relaxin = Not at all Being so restless that it is hard to sit still: 0 = Not at all Becoming easily annoyed or irritable: 0 = Not at all Feeling afraid as if something awful might happen: 0 = Not at all Total CASSIA-7 score (0-4 normal; 5-9 mild; 10-14 moderate; 15-21 severe): 0 Source: Developed by Drs. Augie Acosta, Radha Echavarria, Eros Robbins and colleagues, with an educational juli from [employer]. Review of Systems Const All systems reviewed & are unremarkable except as noted in HPI and below Physical exam (Primary Care) Vital Signs: Last Vital Signs Pulse 85 12/05/24 12:55 BP 120/84 12/05/24 12:55 Pulse Ox 95 12/05/24 12:55 Oxygen Delivery Method Room Air 12/05/24 12:55 BMI result Body Mass Index 29.2 Tobacco/Smoking Status: Tobacco use Status Tobacco use date assessed 12/05/24 12/05/24 13:01 Patient Tobacco Use Status Former Tobacco user 12/05/24 13:01 e-Cigarette/Vaping Use Never Used 12/05/24 13:01 PHQ-9: PHQ-9 Score PHQ-9: Total score 0 12/05/24 13:01 Thrive Assessment: Date of Thrive Assessment Date Thrive assessed 12/05/24 12/05/24 13:01 Currently or been in a relationship where the following occur: No concerns reported Const General: no acute distress; No comfortable Orientation/consciousness: patient oriented x3 Back/Spine/Pelvis Cervical Spine: cervical spasm and Cervical spine tenderness Thoracic/Lumbar Spine: pain with thoraco-lumbar ROM, thoraco-lumbar spasm and thoracic spinal tenderness Neuro General: patient oriented x3, gait normal and moves all extremities Psych Speech and movement: Normal speech and movement present Coding Level of Care Code Est Pt Level 4 (95453) Diagnoses Strain of right trapezius muscle, initial encounter S46.811A Encounter type: initial encounter Laterality: right Time Spent (min) 20 Assessment & Plan Assessment & Plan (1) Trapezius muscle strain: Code(s): S46.819A - Strain of other muscles, fascia and tendons at shoulder and upper arm level, unspecified arm, initial encounter Category: Medical Qualifiers: Encounter type: initial encounter Laterality: right Qualified Code(s): S46.811A - Strain of other muscles, fascia and tendons at shoulder and upper arm level, right arm, initial encounter Plan: Ordered PT Gave patient 7 days off from work. Continue on Tx plan Orders: Orders PT Evaluation and Treatment Today S46.811A - Strain of other muscles, fascia and tendons at shoulder and upper arm level, right arm, initial encounter
--- OUTSIDE RECORDS SUMMARY | 2024-12-05 12:56 | XMS_ITS | Clinical Summary ---
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
== END 2024-12-05 13:41 | disposition home or self-care (01) ==
LOC: HO.HMCH 12:54
PROVIDERS: PCP Physician Assistant; Visit Provider Nurse Practitioner Family
DX: S46.811A Strain of other muscles, fascia and tendons at shoulder and upper arm level, right arm, initial encounter (principal)

== ENCOUNTER → 2024-12-05 12:53 | Outpatient (BNVA) | payer OTHER, SELFPAY | PROVIDERS: PCP Physician Assistant; Visit Provider Nurse Practitioner Family | DX: S46.811A Strain of other muscles, fascia and tendons at shoulder and upper arm level, right arm, initial encounter (principal); X58.XXXA Exposure to other specified factors, initial encounter; Y93.9 Activity, unspecified; Y92.9 Unspecified place or not applicable; Y99.9 Unspecified external cause status | CPT/HCPCS: 99212 ==

== ENCOUNTER 2025-02-25 15:09 | Outpatient (AMB) | payer OTHER, SELFPAY ==
--- OUTSIDE RECORDS SUMMARY | 2025-02-20 00:26 | XMS_ITS | Encounter Summary ---
Author Organization [facility] Address [address] [facility] [address] [place] [phone] Phone Care Team Providers Care Warehouse Operations Associate Name Role Phone Dayton Gould Primary Care Provider + Reason for Visit * Reason Comments Chest Pain Encounter Details Date Type Department Care Team ([facility] st Contact Info) Description 02/20/2025 12:26 AM EDT - 02/20/2025 5:53 AM EDT Emergency [facility] [address] [place] [address] Samir Dee, DO [address] [place] [address] [email or web address] Discharge Disposition: Home or Self Care Social History Tobacco Use Types Packs/Day Years Used Date Smoking Tobacco: Former Smokeless Tobacco: Never Alcohol Use Standard Drinks/Week Comments Never 0 (1 standard drink = 0.6 oz pur e alcohol) Education Answer Date Recorded Are you interested in more education? Not on kris e 10/27/2022 Are you concerned about learning? Not on file 10/27/2022 No 10/27/2022 No 10/27/2022 Food Answer Date Recorded Within the past 6 months we worried whether our food would run out before we got money to buy more. Never True 02/20/2025 Within the past 6 months the food we bought just didn't last and we didn't have enough money to get more. Never True Residential Stability Answer Date Recor ded What is your housing situation today? I have marita stein 02/20/2025 How many times have you move d in the past 12 months? Zero (I did not move) 02/20/2025 Paying for Meds Answer Date Recorded Do you have trouble paying for medicines? No 02/20/2025 Paying Utility Bills Answer Date Record ed Do you have trouble paying your heating or elect ricity bill? No 02/20/2025 Transportation Answer Date Recorded Has the lack of transportati on kept you from medical appointments or from getting medications? No 02/20/2025 Digital Access Answer Date Recorded No 02/20/2025 Yes 02/20/2025 Do you have reliable internet access at home? Ye s 02/20/2025 Do you have a device (e.g., phone, tablet, computer) with a working camera? Yes 02/20/2025 Intimate Partner Violence Answer Date R ecorded Are you denied basic needs s uch as food, clothing, or medical care? No 02/19/2025 In the past 12 months have y ou been in a relationship with a person who hurts, threatens, or tries to control you? No 02/19/2025 Are you denied basic needs s uch as food, clothing, or medical care? No 02/19/2025 In the past 12 months have y ou been in a relationship with a person who hurts, threatens, or tries to control you? No 02/19/2025 Sex and Gender Information Value Date Recorded Sex Assigned at Male 10/05/2020 10:54 AM EDT Legal Sex Male 9:23 AM EDT Gender Identity Male 10/05/2020 10:54 AM EDT Sexual Orientation Straight 01/07/2024 11 :54 PM EDT documented as of this encounter Last Filed Vital Signs Vital Sign Reading Time Taken Comments Blood Pressure 123/76 02/20/2025 4:59 AM EDT Pulse 64 02/20/2025 4:59 AM EDT Temperature 36.4 C (97.5 F) 02/20/2025 4:59 AM EDT Respiratory Rate 18 02/20/2025 4:59 AM EDT Oxygen Saturation 97% 02/20/2025 4:59 AM EDT Inhaled Oxygen Concentration - - Weight 93.4 kg (206 lb) 02/19/2025 9:29 PM EDT Height 180.3 cm (5' 11 ) 02/19/2025 9:29 PM EDT Body Mass Index 28.73 02/19/2025 9:29 PM EDT documented in this encounter Functional Status * Calculated C-SSRS Risk Score (Lifetime/Recent) Answer Date of Assessment Author No Risk Indicated 02/19/2025 9:30 PM EDT Kimberley Recio RN * [place] Suicide Severity Rating Scale (Screener/Recent Self-Report) Question Answer Date of Assessment Author 1. Wish to be (Past 1 Month) No 02/19/2025 9:30 PM EDT Kimberley Recio RN 2. Non-Specific Active Suici william Thoughts (Past 1 Month) No 02/19/2025 9:30 PM EDT Uriel Recio RN 6. Suicidal Behavior (Lifetime) No 9:30 PM EDT Kimberley Recio RN documented as of this encounter Discharge Instructions * Discharge Instructions* Samir Dee DO - 02/20/2025 4:43 AM EDT Thankfully your CAT scan and further labs were unremarkable. At this time as we discussed I suspecta GI source of your pain. I would follow-up closely with your primary care team. Return to the ED for any further concerning symptoms. * Attachments The following attachments cannot be sent through Care Everywhere. * Abdominal Pain ([place]) documented in this encounter Medications at Time of Discharge celecoxib (CELEBREX) 100 MG capsule Take 1 capsule (100 mg total) by mouth 2 (two) times a day. 14 capsule 11/30/2024 gemfibroziL (LOPID) 600 MG tablet Take 1 tablet (600 mg total) by mouth 2 (two) times a day. 180 tablet 06/13/2024 metoprolol succinate (TOPROL-XL) 25 MG 24 hr tablet Take 1 tablet (25 mg total) by mouth daily. 90 tablet 1 07/08/2024 niacin 250 mg TbER Take 2 tablets by mouth every morning. 12/10/2023 omeprazole (PRILOSEC) 40 MG capsule Take 40 mg by mouth daily. 01/23/2024 oxymetazoline (AFRIN) 0.05 % nasal spray 2 sprays by Nasal route 2 (two) times a day as needed for congestion. documented as of this encounter ED Notes * Jany Mccall RN - 02/20/2025 4:59 AM EDT ED Discharge Nursing Note Pt is a/o, resp even and unlabored, NAD. D/C paperwork given and reviewed. Discussed follow up and s/s that would indicate need to return to ED. Pt verbalized understanding. No further questions at this time. * Tasia Castellon RN - 02/20/2025 2:33 AM EDT ED Nursing Progress Note Patient to CT * Kimberley Recio RN - 02/19/2025 9:31 PM EDT Pt presents for ongoing chest pressure that has worsened in frequency and severity. Pt reports pressure is epigastric/substernal. Pt also reporting loss of appetitive, SOB and lightheadedness. AOx4, breathing equal and unlabored, skin AWD. * Samir Dee DO - 02/19/2025 9:17 PM EDT Chief Complaint Chief Complaint Patient presents with Chest Pain History of Present Illness The patient, Justino Sheets,is a 44 y.o. male who presents for evaluation of Chest Pain 44-year-old male. Presents for evaluation of chest pain. He states of the last few nights has been present. States that he works evenings gets home and eats. Whenever he lays down after eating he begins to feel a pressure in his epigastric region rating towards his chest. He has a history of palpitations and has a as needed medication which he has taken but states every night continues to recur and he is worried. Has a history of pancreatitis as well as Crohn's disease. Patient has a history ofsignificant intra-abdominal surgical procedures. Denies any dark stool, Normal ileostomy output Unless otherwise specified, I have reviewed and agree with the triage and nursing notes. ROS A ten point review of systems was negative except what was noted in the HPI. Review of Systems Past Medical History Past Medical History: Diagnosis Date Anxiety disorder Chronic rhinitis Crohn's disease Hypertriglyceridemia Pancreatitis Past Surgical History Past Surgical History: Procedure Laterality Date COLON SURGERY ESOPHAGOGASTRODUODENOSCOPY N/A 12/15/2021 Performed by Satya Vora MD at [facility] ENDOSCOPY ILEOSTOMY Home Medications Prior to Admission medications Medication Sig celecoxib (CELEBREX) 100 MG capsule 100 mg, Oral, 2 times daily gemfibroziL (LOPID) 600 MG tablet 600 mg, Oral, 2 times daily metoprolol succinate (TOPROL-XL) 25 MG 24 hr tablet 25 mg, Oral, Daily niacin 250 mg TbER 2 tablets, Oral, Every morning omeprazole (PRILOSEC) 40 MG capsule 40 mg, Oral, Daily oxymetazoline (AFRIN) 0.05 % nasal spray 2 sprays, Nasal, 2 times daily PRN Allergies No Known Allergies Social and Family History Social History Tobacco Use Smoking status: Former Smokeless tobacco: Never Substance Use Topics Alcohol use: Never Social History Substance and Sexual Activity Drug Use Yes Types: Marijuana Family History Problem Relation Age of Onset Diabetes mellitus Mother Physical Exam Vital Signs: ED Triage Vitals [02/19/252128] Encounter Vitals Group BP (!) 185/110 Systolic BP Percentile Diastolic BP Percentile Heart Rate 84 Respiratory Rate 20 Temperature 36.6 ??C (97.9 ??F) Temp Source Temporal SpO2 97 % Weight 206 lb Height 5' 11 Head Circumference Peak Flow Pain Score Pain Loc Pain Education Exclude from Growth Chart Physical Exam General: Well Nourished, Well Developed HENT: Normocephalic, Atraumatic Eyes: PERRL, EOM Intact Cardiovascular: Normal Rate, Normal Rhythm, Good Distal Perfusion Pulmonary: Normal Effort, Breath Sounds Normal Abdominal: Soft, ileostomy in RLQ, Epigastric tenderness, numerous scars from prior procedures. MSK: Normal ROM Neurological: Alert, Orientated x 3 Psych: Normal Mood and Affect Laboratory Testing Results for orders placed or performed during the hospital encounter of 02/20/25 LFTs (hepatic panel) Result Value Ref Range ALKALINE PHOSPHATASE 101 39 - 117 U/L TOTAL BILIRUBIN <0.2 0.0 - 1.2 mg/dL DIRECT BILIRUBIN 0.1 0.0 - 0.2 mg/dL Bilirubin (Indirect) NOT CALCULATED 0 - 1.5 mg/dL AST 20 0 - 37 U/L ALT 20 0 - 40 U/L TOTAL PROTEIN 7.6 6.5 - 8.0 g/dL ALBUMIN 4.3 3.9 - 4.8 g/dL GLOBULIN 3.3 1 - 4.8 g/dL A/G Ratio 1.30 1.00 - 4.80 RATIO Lipase Result Value Ref Range LIPASE 58 16 - 63 U/L Troponin Specimen: Blood Result Value Ref Range Troponin-T, HS Gen5 <6 0 - 14 ng/L Troponin Specimen: Blood Result Value Ref Range Troponin-T, HS Gen5 <6 0 - 14 ng/L Basic metabolic panel Specimen: Blood Result Value Ref Range SODIUM 136 133 - 146 mmol/L CHLORIDE 99 96 - 108 mmol/L POTASSIUM 3.5 3.3 - 5.1 mmol/L CO2 21 21 - 35 mmol/L BUN 16 6 - 19 mg/dL CREATININE 0.80 0.5 - 1.5 mg/dL GLUCOSE 109 (H) 70 - 99 mg/dL CALCIUM 9.3 8.4 - 10.3 mg/dL EGFR 112 >59 mL/min/1.73m2 ANION GAP 20 10 - 20 mmol/L CBC and differential Specimen: Blood Result Value Ref Range WBC 8.74 4.00 - 11.00 K/uL RBC 5.13 4.50 - 5.90 M/uL HGB 13.8 13.5 - 17.5 g/dL HCT 39.1 (L) 41.0 - 53.0 % PLT 315 150 - 450 K/uL MCV 76.2 (L) 80.0 - 100.0 fL MCH 26.9 (L) 27.0 - 31.0 pg MCHC 35.3 32.0 - 36.0 g/dL RDW 12.5 11.5 - 14.5 % MPV 9.2 8.4 - 12.0 fL NRBC 0.00 0.00 /100 WBCs ABSOLUTE NRBC 0.00 0.00 K/uL DIFF METHOD Auto NEUTS 39.2 (L) 48.0 - 76.0 % LYMPHS 47.7 (H) 18.0 - 41.0 % MONOS 7.0 4.0 - 11.0 % EOS 5.4 (H) 0.0 - 5.0 % BASOS 0.5 0.0 - 1.5 % Granulocytes, immature (%) 0.2 0.0 - 0.9 % ABSOLUTE NEUTS 3.43 1.92 - 7.60 K/uL ABSOLUTE LYMPHS 4.17 (H) 0.72 - 4.10 K/uL ABSOLUTE MONOS 0.61 0.16 - 1.10 K/uL ABSOLUTE EOS 0.47 0.00 - 0.50 K/uL ABSOLUTE BASOS 0.04 0.00 - 0.15 K/uL Granulocytes, immature 0.02 0.00 - 0.09 K/uL Radiology Testing CT Abdomen/Pelvis Final Result No acute abdominopelvic abnormality. Medication from 02/19/20252116 to 02/20/2025442 Date/Time Order Dose Route Action Action by Comments 02/20/2025221 EDT lactated ringers IV Bolus 1,000 mL 1,000 mL Intravenous New Bag Tasia Castellon RN -- 02/20/2025221 EDT famotidine (PF) (PEPCID) injection 20 mg 20 mg Intravenous Given Tasia Castellon RN -- 02/20/2025221 EDT sucralfate (CARAFATE) tablet 1 g 1 g Oral Given Tasia Castellon RN -- 02/20/2025 0242 EDT iohexoL (OMNIPAQUE-350) 350 mg iodine/mL solution 100 mL 100 mL Intravenous Given Caro Mirza -- [facility] Patient presenting as above. VSS. EKG with NSR, No ischemia. Initial Cardiac w/u unremarkable. Suspect GI etiology, including gastritis vs pancreatitis vs Biliary etiology. Obstruction possible but less likely. Will ct and add on LFT/Lipase ED Course as of 02/20/25442Feb 20, 2025441 CT reassuring [JS] ED Course User Index [JS] Samir Dee DO Clinical Impressions as of 02/20/25442 Chest pain, unspecified type Epigastric pain Clinical Impression Diagnosis Description Comment Final diagnoses Chest pain, unspecified type Chest pain, unspecified type -- Epigastric pain Epigastric pain -- Disposition: Home Samir Dee DO 02/20/25442 documented in this encounter Plan of Treatment Upcoming Encounters Date Type Department Care Team (Late st Contact Info) Description 09/20/2026 9:00 AM EDT Office Visit [facility] [address] [place] [address] Bernice Jacome [address] [place] [address], [address] [place] [address] [email or web address] documented as of this encounter Procedures Procedure Name Priority Date/Time Associated Diagnosis Comments CT ABDOMEN/PELVIS WITH CONTRAST Routine 02/20/2025 2:46 AM EDT TROPONIN STAT 02/19/2025 11:02 PM EDT LFTS (HEPATIC PANEL) Routine 02/19/2025 9:58 PM EDT CBC AND DIFFERENTIAL STAT 02/19/2025 9:58 PM EDT TROPONIN STAT 02/19/2025 9:58 PM EDT LIPASE Routine 02/19/2025 9:58 PM EDT BASIC METABOLIC PANEL STAT 02/19/2025 9:58 PM EDT ECG 12-LEAD STAT 02/19/2025 9:27 PM EDT documented in this encounter Results * CT ABDOMEN/PELVIS WITH CONTRAST (02/20/2025 2:46 AM EDT) Anatomical Region Laterality Modality Abdomen, Pelvis Computed Tomogra phy 02/20/2025 4:15 AM EDT Impressions 02/20/2025 4:36 AM EDT No acute abdominopelvic abnormality. Narrative 02/20/2025 4:[address] ABDOMEN/PELVIS WITH CONTRAST Reason for exam (per EHR order): * Epigastric pain TECHNIQUE: Multidetector-row CT of the abdomen and pelvis was performed after administration of intravenous contrast using tailored dose modulation techniques. Images were reconstructed in the axial, coronal, and sagittal planes. COMPARISON: CT ABDOMEN/PELVIS WITH CONTRAST FINDINGS: Lower Chest: Normal. Liver: Normal. Biliary System: Normal. Pancreas: Normal. Spleen: Subcentimeter hypodensity too small to characterize. Adrenal Glands: Normal. Kidneys: Subcentimeter hypodensities too small to characterize. No hydronephrosis. Bowel: Proctocolectomy with right lower quadrant ileostomy. Small hiatal hernia. No bowel thickening or distention. Mesentery, Omentum, and Peritoneum: Normal. Pelvic Organs: Normal. Lymph Nodes: Normal. Vasculature: Inferior vena cava filter. Bones and Soft Tissues: Multilevel degenerative changes. Procedure Note Nicolás Russo MD - 02/20/2025 CT ABDOMEN/PELVIS WITH CONTRAST Reason for exam (per EHR order): * Epigastric pain TECHNIQUE: Multidetector-row CT of the abdomen and pelvis was performed afteradministration of intravenous contrast using tailored dose modulationtechniques. Images were reconstructed in the axial, coronal, and sagittalplanes. COMPARISON: CT ABDOMEN/PELVIS WITH CONTRAST FINDINGS: Lower Chest: Normal. Liver: Normal. Biliary System: Normal. Pancreas: Normal. Spleen: Subcentimeter hypodensity too small to characterize. Adrenal Glands: Normal. Kidneys: Subcentimeter hypodensities too small to characterize. Nohydronephrosis. Bowel: Proctocolectomy with right lower quadrant ileostomy. Small hiatalhernia. No bowel thickening or distention. Mesentery, Omentum, and Peritoneum: Normal. Pelvic Organs: Normal. Lymph Nodes: Normal. Vasculature: Inferior vena cava filter. Bones and Soft Tissues: Multilevel degenerative changes. IMPRESSION: No acute abdominopelvic abnormality. us Samir Dee DO IMG CT ABD/PELVIS Final Resul t * Troponin (02/19/2025 11:02 PM EDT) Troponin-T, HS Gen5 <6 0 - 14 ng/L [facility] Blood 02/19/2025 11:0 2 PM EDT 02/19/2025 11:12 PM EDT Elias Gotti MD LAB BLOOD ORDERAB LES Final Result Performing Organization Address [facility]/ZIP Co de Phone Number [address] [address] * LFTs (hepatic panel) (02/19/2025 9:58 PM EDT) ALKALINE PHOSPHATASE 101 39 - 117 U/L [facility] TOTAL BILIRUBIN <0.2 0.0 - 1.2 mg/dL [facility] DIRECT BILIRUBIN 0.1 0.0 - 0.2 mg/dL [facility] Bilirubin (Indirect) NOT CALCULATED 0 - 1.5 mg/dL [facility] AST 20 0 - 37 U/L [facility] ALT 20 0 - 40 U/L [facility] TOTAL PROTEIN 7.6 6.5 - 8.0 g/dL [facility] ALBUMIN 4.3 3.9 - 4.8 g/dL [facility] GLOBULIN 3.3 1 - 4.8 g/dL [facility] A/G Ratio 1.30 1.00 - 4.80 RATIO [facility] 02/19/2025 9:58 PM EDT 02/19/2025 10:08 PM EDT us Elias Gotti MD LAB BLOOD ORDERAB LES Final Result Performing Organization Address City/[facility]/ZIP Co de Phone Number [address] [address] * Lipase (02/19/2025 9:58 PM EDT) Pathologist [facility] LIPASE 58 16 - 63 U/L [facility] 02/19/2025 9:58 PM EDT 02/19/2025 10:08 PM EDT Elias Gotti MD LAB BLOOD ORDERAB LES Final Result Performing Organization Address [facility]/ZIP Co de Phone Number [address] [address] * Troponin (02/19/2025 9:58 PM EDT) Pathologist [facility] Troponin-T, HS Gen5 <6 0 - 14 ng/L [facility] Blood 02/19/2025 9:58 PM EDT 02/19/2025 10:08 PM EDT Elias Gotti MD LAB BLOOD ORDERAB LES Final Result Performing Organization Address [facility] Co de Phone Number [address] [address] * (ABNORMAL) Basic metabolic panel (02/19/2025 9:58 PM EDT) Pathologist [facility] SODIUM 136 133 - 146 mmol/L [facility] CHLORIDE 99 96 - 108 mmol/L [facility] POTASSIUM 3.5 3.3 - 5.1 mmol/L [facility] Comment:Specimen slightly he molyzed, result may be falsely elevated. CO2 21 21 - 35 mmol/L [facility] BUN 16 6 - 19 mg/dL [facility] CREATININE 0.80 0.5 - 1.5 mg/dL [facility] GLUCOSE 109(H) 70 - 99 mg/dL [facility] CALCIUM 9.3 8.4 - 10.3 mg/dL [facility] EGFR 112 >59 mL/min/1.7 3m2 [facility] Comment:Estimated glomerular filtration rate calculated using the CKD-EPI refit equation. ANION GAP 20 10 - 20 mmol/L [facility] Blood 02/19/2025 9:58 PM EDT 02/19/2025 10:08 PM EDT us Elias Gotti MD LAB BLOOD ORDERAB LES Final Result [address] [address] * (ABNORMAL) CBC and differential (02/19/2025 9:58 PM EDT) WBC 8.74 4.00 - 11.00 K/uL [facility] RBC 5.13 4.50 - 5.90 M/uL [facility] HGB 13.8 13.5 - 17.5 g/dL [facility] HCT 39.1(L) 41.0 - 53.0 % [facility] PLT 315 150 - 450 K/uL [facility] MCV 76.2(L) 80.0 - 100.0 fL [facility] MCH 26.9(L) 27.0 - 31.0 pg [facility] MCHC 35.3 32.0 - 36.0 g/dL [facility] RDW 12.5 11.5 - 14.5 % [facility] MPV 9.2 8.4 - 12.0 fL [facility] NRBC 0.00 0.00 /100 WBCs [facility] ABSOLUTE NRBC 0.00 0.00 K/uL [facility] DIFF METHOD Auto [facility] NEUTS 39.2(L) 48.0 - 76.0 % [facility] LYMPHS 47.7(H) 18.0 - 41.0 % [facility] MONOS 7.0 4.0 - 11.0 % [facility] EOS 5.4(H) 0.0 - 5.0 % [facility] BASOS 0.5 0.0 - 1.5 % [facility] Granulocytes, immature (%) 0.2 0.0 - 0.9 % [facility] ABSOLUTE NEUTS 3.43 1.92 - 7.60 K/uL [facility] ABSOLUTE LYMPHS 4.17(H) 0.72 - 4.10 K/uL [facility] ABSOLUTE MONOS 0.61 0.16 - 1.10 K/uL [facility] ABSOLUTE EOS 0.47 0.00 - 0.50 K/uL [facility] ABSOLUTE BASOS 0.04 0.00 - 0.15 K/uL [facility] Granulocytes, immature 0.02 0.00 - 0.09 K/uL [facility] Blood 02/19/2025 9:58 PM EDT 02/19/2025 10:08 PM EDT us Elias Gotti MD LAB BLOOD ORDERAB LES Final Result Performing Organization Address [facility] Co de Phone Number [address] [address] * ECG 12-LEAD (02/19/2025 9:27 PM EDT) Ventricular Rate EKG/MIN 85 BPM [facility] Atrial Rate 85 BPM [facility] [place] Interval 144 ms [facility] QRS Duration 82 ms [facility] QT Interval 382 ms [facility] QTC Interval 454 ms [facility] P [place] 56 degrees [facility] R Wave [place] 23 degrees [facility] T Wave [place] 11 degrees [facility] 02/19/2025 9:27 PM EDT 02/20/2025 11:38 PM EDT Narrative [facility] - 02/20/2025 11:38 PM EDT Normal sinus rhythm Possible Left atrial enlargement Nonspecific T wave abnormality Abnormal ECG When compared with ECG of 30-Nov-2024 22:03, No significant change was found Confirmed by Timothy Vegas ([id number]) on 02/20/2025 11:38:54 PM us Elias Gotti MD ECG ORDERABLES F inal Result Performing Organization Address [facility] Co de Phone Number [facility] documented in this encounter Visit Diagnoses Diagnosis Chest pain, unspecified type- Primary Epigastric pain Abdominal pain, epigastric documented in this encounter Administered Medications Inactive Administered Medications - up to 3 most recent administrations Medication Order MAR Action Action Date Dose Rate Site famotidine (PF) (PEPCID) injection 20 mg 20 mg, Intravenous, Once, On Sun02/20/25 at 0215, For 1 dose, May be given undiluted IV push over 2 minutes. Given 02/20/2025 2:22 AM EDT 20 mg iohexoL (OMNIPAQUE-350) 350 mg iodine/mL solution 100 mL 100 mL, Intravenous, Once as needed, pre procedure/treatment, Starting on Sun02/20/25 at 0232, For 1 dose, Procedural Contrast/Med Active Now, Each mL contains 755 mg of iohexol equivalent to 350 mg of organic iodine. Given 02/20/2025 2:42 AM EDT 100 mL lactated ringers IV Bolus 1,000 mL 1,000 mL, Intravenous, Administer over 30 Minutes, Once, On Sun02/20/25 at 0215, For 1 dose New Bag 02/20/2025 2:22 AM EDT 1,000 mL 2000 mL/hr sodium chloride (NS) 0.9 % syringe flush 3 mL 3 mL, Intravenous, As needed, line care, Starting on Eva 02/19/25 at 2132, Per Institutional IV Line Care Policy. sodium chloride (NS) 0.9 % syringe flush 3 mL 3 mL, Intravenous, As needed, line care, Starting on Sun02/20/25 at 0205, Per Institutional IV Line Care Policy. sucralfate (CARAFATE) tablet 1 g 1 g, Oral, Once, On Sun02/20/25 at 0215, For 1 dose, Tablets can be crushed in water (10-20 mL per tablet) to make a local slurry for feeding tube and rectal administration. Give on an empty stomach. Do not give antacids within one-half hour of administration. This does NOT apply to Rectal route of administration. Given 02/20/2025 2:22 AM EDT 1 g documented in this encounter Active and Recently Administered Medications Times are shown in EDT. Scheduled Medication Order 02/18/2025 02/19/2025 02/20/2025 famotidine (PF) (PEPCID) injection 20 mg (COMPLETED) 20 mg, Intravenous, Once, On Sun02/20/25 at 0215, For 1 dose, May be given undiluted IV push over 2 minutes. 0222 (Given - Provid er: Tasia Castellon RN) lactated ringers IV Bolus 1,000 mL (COMPLETED) 1,000 mL, Intravenous, Administer over 30 Minutes, Once, On Sun02/20/25 at 0215, For 1 dose 022 (New Bag - Prov ider: Tasia Castellon RN)0452 (Stopped - Provider: Jany Mccall RN) sucralfate (CARAFATE) tablet 1 g (COMPLETED) 1 g, Oral, Once, On Sun02/20/25 at 0215, For 1 dose, Tablets can be crushed in water (10-20 mL per tablet) to make a local slurry for feeding tube and rectal administration. Give on an empty stomach. Do not give antacids within one-half hour of administration. This does NOT apply to Rectal route of administration. 022 (Given - Provid er: Tasia Castellon RN) PRN Medication Order 02/18/2025 02/19/2025 02/20/2025 iohexoL (OMNIPAQUE-350) 350 mg iodine/mL solution 100 mL (COMPLETED) 100 mL, Intravenous, Once as needed, pre procedure/treatment, Starting on Sun02/20/25 at 0232, For 1 dose, Procedural Contrast/Med Active Now, Each mL contains 755 mg of iohexol equivalent to 350 mg of organic iodine. 0242 (Given - Provid er: Caro Mirza) sodium chloride (NS) 0.9 % syringe flush 3 mL 3 mL, Intravenous, As needed, line care, Starting on Sun02/19/25 at 2132, Per Institutional IV Line Care Policy. sodium chloride (NS) 0.9 % syringe flush 3 mL 3 mL, Intravenous, As needed, line care, Starting on Sun02/20/25 at 0205, Per Institutional IV Line Care Policy. documented in this encounter Care Teams Warehouse Operations Associate Relationship Specialty Start Date End Date Dayton Gould PA [address] [place] [address] PCP - General 10/05/20 documented as of this encounter Additional Source Comments The information contained in this document represents components of the legal health record. It is not the complete legal health record.[facility]
--- NOTE | 2025-02-25 15:28 | A.OFFPC_ITS ---
Vital Signs 02/25/25 15:33 Height 5 ft 11 in Weight 207 lb BMI 28.9 BP 130/78 Blood Pressure Location Lt brachial Position Sitting Respiration 18 Pulse 95 Pulse Source Pulse Oximeter Temp 96.8 F Temp Source Temporal Artery Scan Pulse Oximetry (%) 97 Oxygen Delivery Method Room Air Intake Visit Reasons: Nadia Barakat 02/20 Pulmonary Function Technologist Required: No Accompanied by: Self / Same As Patient Allergies cetirizine (From [facility]) Adverse Reaction (Mild, Verified 02/25/25 15:56) Nightmare lactose Adverse Reaction (Unknown, Verified 02/25/25 15:56) Diarrhea Medication List - Last Reconciled 02/25/25 by Dayton Gould PA-C amoxicillin-pot clavulanate 875-125 mg 1 tab PO BID 10 days colostomy-Ileost.set,nonsteril (Premier Colostomy-Ileostomy) As directed gemfibrozil 600 mg PO BID 30 days ibuprofen 800 mg PO Q8H PRN 10 days loperamide (Imodium A-D) 2 mg PO Q4H PRN lorazepam 1 mg PO BEDTIME PRN metoprolol succinate ER 25 mg PO DAILY niacin ER 500 mg (2 x 250 mg) PO DAILY 90 days omeprazole 40 mg PO DAILY PRN ostomy adhesive (Stomahesive Paste) As directed ostomy supplies (Skin Prep Wipes) As directed prednisone 40 mg (2 x 20 mg) PO DAILY 5 days Tobacco use date assessed: 02/25/25 Dental Screening Dental Screen Date: 02/25/25 Did you have a dental visit in the last 12 months?: No Did you have a dental problem in the last 6 months where you did not have access to dental care?: No Was dental information given to patient?: No HPI Nadia Barakat 02/20 HPI Details Patient is a 44-year-old male here today for an ER follow-up visit for abdominal pain and ongoing symptoms of fatigue and hypertension. The patient reports experiencing fluctuating blood pressure readings, with episodes of elevated blood pressure. , which are managed with medication prescribed for palpitations (metoprolol). He describes a sensation of pressure and anxiety accompanying these episodes, which are alleviated by the medication. The patient reports persistent fatigue, feeling drained despite adequate sleep, and experiencing difficulty maintaining energy levels throughout the day. He has attempted to alleviate these symptoms with energy drinks and dietary adjustments, but without significant improvement. The patient has a history of toothache, with pain and swelling in the affected area, which he suspects may be due to an infection. He has been self-medicating with amoxicillin, which temporarily alleviates the pain but does not resolve the underlying issue. The patient reports symptoms consistent with sinusitis, including nasal congestion and pressure, which he attributes to nasal polyps. He has been using prednisone intermittently to manage inflammation and symptoms, with some relief. The patient experiences frequent heartburn, particularly after work shifts, which he manages with [id number]-[id number]-[id number] medications. [facility] Medical History Trapezius muscle strain Ileostomy dysfunction CASSIA (generalized anxiety disorder) Sinusitis Presence of ileostomy Annual physical exam Presence of IVC filter Transaminitis Hypertriglyceridemia Inflammatory bowel diseases (IBD) Ulcerative colitis Sleep disorder breathing Infection of lip Lumbar disc herniation with radiculopathy Right knee injury Injury of lumbar spine Infected nasal abrasion Lumbar radiculopathy, chronic HLD (hyperlipidemia) Constipation by delayed colonic transit Allergic rhinitis Obesity Colitis Zinc deficiency B12 deficiency Vitamin D deficiency Chronic nasal congestion Nasal sinus congestion Obese Low libido GERD without esophagitis H/O deep venous thrombosis H/O acute pancreatitis Hypertriglyceridemia Surgical History History of ileostomy History of colectomy History of ileostomy History of resection of rectum Family History Father CVD (cardiovascular disease) Mother Hypertension Diabetes Maternal Grandmother Liver cancer Maternal Grandfather CVD (cardiovascular disease) Family/Other Diabetes Social History Household Members: Other Household Members Other:: girlfriend and children Housing: House Do you presently have visiting nurse or other home services: No Alcohol intake: never Patient Tobacco Use Status: Former Tobacco user e-Cigarette/Vaping Use: Never Used Second Hand Smoke Exposure: Yes Substance Use Type: Marijuana service: No Current occupational status: employed Current occupation: [employer] Cognitive needs: No Hearing needs: No Vision needs: No Questionnaire PHQ-9 Over the last 2 weeks, how often have you been bothered by any of the following problems? 1. Little interest or pleasure in doing things: nearly every day 2. Feeling down, depressed, or hopeless: nearly every day 3. Trouble falling or staying asleep, or sleeping too much: nearly every day 4. Feeling tired or having little energy: nearly every day 5. Poor appetite or overeating: more than half the days 6. Feeling bad about yourself - or that you are a failure or have let yourself or your family down: not at all 7. Trouble concentrating on things, such as reading the newspaper or watching television: more than half the days 8. Moving or speaking so slowly that other people could have noticed. Or the opposite - being so fidgety or restless that you have been moving around a lot more than usual: not at all 9. Thoughts that you would be better off or of hurting yourself in some way: not at all Total score: 16 55881 - PHQ-9 Billing: Yes Source: Developed by Drs. Augie Acosta, Radha Echavarria, Eros Robbins and colleagues, with an educational juli from [employer]. Thrive Questionnaire Date Thrive assessed: 02/25/25 I am a: Patient What is your living situation today?: I have a steady place to live Within the past 12 months, did the food you bought not last and you didn't have the money to get more?: Never true Within the past 12 months, did you worry whether your food would run out before you got money to buy more?: Never true Do you have trouble paying for medicines?: No Do you have trouble getting transportation to medical appointments?: No Do you have trouble paying your heating and electricity bill?: No Do you have trouble taking care of your child, family member or friend?: No Do you have trouble with day-to-day activities such as bathing, preparing meals, shopping, managing finances, etc.?: No Are you currently unemployed and looking for a job?: No Are you interested in more education?: No Please select the resources that you would like help with: None Currently or been in a relationship where the following occur: No concerns reported THRIVE Score: 0 AUDIT C Alcohol Use Questionnaire (AUDIT-C) 1. How often do you have a drink containing alcohol?: Never 3. How often do you have six or more drinks on one occasion?: Never Total Score: 0 CASSIA-7 AMB Questionnaire CASSIA-7 Date CASSIA - 7 assessed: 02/25/25 Feeling nervous, anxious, or on edge: 3 = Nearly every day Not being able to stop or control worryin = Not at all Worrying too much about different things: 2 = More than half the days Trouble relaxin = Not at all Being so restless that it is hard to sit still: 0 = Not at all Becoming easily annoyed or irritable: 0 = Not at all Feeling afraid as if something awful might happen: 0 = Not at all Total CASSIA-7 score (0-4 normal; 5-9 mild; 10-14 moderate; 15-21 severe): 5 Source: Developed by Drs. Augie Acosta, Radha Echavarria, Eros Robbins and colleagues, with an educational juli from [employer]. CASSIA-7 Assessment Billing CASSIA-7 Assessment Tool: CASSIA-7 Assessment 32270 Review of Systems Const Reports fatigue and Reports headache(s) Eyes Denies loss of vision ENT Denies vertigo, Denies dizziness, Reports headache(s), Reports nasal congestion and Denies sore throat Card Denies chest pain, Denies leg edema and Denies lightheadedness Resp Denies cough, Denies hemoptysis and Denies wheezing GI Denies abdominal pain, Denies melena, Denies constipation, Denies diarrhea and Denies vomiting Denies dysuria, Denies urinary frequency and Denies urinary urgency Musc Denies arthralgias, Denies joint swelling, Denies numbness and Denies tingling Neuro Denies Abnormal speech present, Denies behavioral changes, Denies vertigo, Denies dizziness, Reports headache(s), Denies loss of vision, Denies memory loss, Denies numbness and Denies tingling Psych Denies anxiety, Denies behavioral changes, Denies depression, Denies memory loss and Denies panic attacks Endo Reports fatigue Jarad/Lymph Denies easy bleeding and Denies easy bruising Aller/Immun Denies wheezing Physical exam (Primary Care) Vital Signs: Last Vital Signs Temp 96.8 F 02/25/25 15:33 Pulse 95 02/25/25 15:33 Resp 18 02/25/25 15:33 BP 130/78 02/25/25 15:33 Pulse Ox 97 02/25/25 15:33 Oxygen Delivery Method Room Air 02/25/25 15:33 BMI result Body Mass Index 28.9 Tobacco/Smoking Status: Tobacco use Status Tobacco use date assessed 02/25/25 02/25/25 15:44 Patient Tobacco Use Status Former Tobacco user 02/25/25 15:30 e-Cigarette/Vaping Use Never Used 02/25/25 15:30 PHQ-9: PHQ-9 Score PHQ-9: Total score 16 02/25/25 15:59 Thrive Assessment: Date of Thrive Assessment Date Thrive assessed 02/25/25 02/25/25 15:44 Currently or been in a relationship where the following occur: No concerns reported Const General: healthy appearing, no acute distress, alert and awake Nutritional Appearance: well nourished Orientation/consciousness: oriented to person, oriented to place and oriented to time HENMT Other: LEFT TYMPANIC MEMBRANE ERYTHEMATOUS Ears: TM normal on the right and left TM abnormal General nose exam: Normal nasal mucous membranes and turbinates present Eyes Conjunctivae: conjunctivae normal Sclerae: sclerae normal Pupils: Equal, round and reactive pupils present Neck Neck: Yes no lymphadenopathy and Yes no JVD Thyroid: Thyroid normal Carotids: no bruits Resp Effort & Inspection: normal respiratory effort and not tachypneic Auscultation: no crackles, no rales, no rhonchi and no wheezes Cardio Rate: regular rate Rhythm: regular rhythm Heart sounds: no murmurs and normal S1 and S2 GI Palpation (GI): Soft to palpation, nontender, no hepatomegaly and no splenomegaly Auscultation: normal bowel sounds Skin General skin exam: no rashes or lesions noted and dry skin Neuro General: oriented to person, oriented to place and oriented to time Cranial nerves: Yes Equal, round and reactive pupils present Speech: No Abnormal speech present Gait exam (Neuro): Normal gait present Motor exam (neuro): no tremor noted Extrem Right upper extremity: full ROM Left upper extremity: full ROM Right lower extremity: full ROM; no edema Left lower extremity: full ROM; no edema Psych Mental Status: mental status grossly normal Speech and movement: Normal speech and movement present Affect: normal affect Attitude: cooperative Thought process: Normal thought process present Coding Level of Care Code Est Pt Level 4 (34526) Diagnoses Chronic fatigue R53.82 Fatigue type: chronic, unspecified Acute recurrent frontal sinusitis J01.11 Chronicity: acute Recurrence: recurrent Sinusitis location: frontal Additional Codes CASSIA-7 Assessment Billing - CASSIA-7 Assessment Tool: CASSIA-7 Assessment 99569 ([id number]) PHQ-9 - 35204 - PHQ-9 Billing: Yes ([id number]) Assessment & Plan Assessment & Plan (1) Fatigue: Code(s): R53.83 - Other fatigue Category: Medical Qualifiers: Fatigue type: chronic, unspecified Qualified Code(s): R53.82 - Chronic fatigue, unspecified Plan: The plan includes checking vitamin levels, including B12, folate, and vitamin D, to assess for deficiencies. Testing for Lyme disease will be considered due to the fatigue symptoms. A letter will be provided to allow the patient to take a few days off work for rest. (2) Sinusitis: Code(s): J32.9 - Chronic sinusitis, unspecified Category: Medical Qualifiers: Chronicity: acute Recurrence: recurrent Sinusitis location: frontal Qualified Code(s): J01.11 - Acute recurrent frontal sinusitis Plan: The patient will be treated for a possible sinus infection, which may be contributing to fatigue and other symptoms. An antibiotic will be prescribed to address the infection. FAR CHRONIC NASAL CONGESTION SECONDARY TO HIS NASAL POLYP-->The patient will be referred for evaluation and possible surgical removal of nasal polyps. Prednisone will be used intermittently to manage inflammation and symptoms. Orders: Orders Lyme IgG/IgM w/reflex to WB 02/25/25 R53.82 - Chronic fatigue, unspecified IRON PROFILE 02/25/25 D50.9 - Iron deficiency anemia, unspecified, R53.82 - Chronic fatigue, unspecified Complete Blood Count no Diff 02/25/25 R53.82 - Chronic fatigue, unspecified Vitamin B12 and Folate 02/25/25 E53.8 - Deficiency of other specified B group vitamins, R53.82 - Chronic fatigue, unspecified Vitamin D 25-OH Total 02/25/25 R53.82 - Chronic fatigue, unspecified Comprehensive Hazard. Panel Fast 02/25/25 E78.1 - Pure hyperglyceridemia Phosphorus 02/25/25 R53.82 - Chronic fatigue, unspecified Vitamin B2 (Riboflavin) 02/25/25 R53.82 - Chronic fatigue, unspecified Lipid Panel 02/25/25 E78.1 - Pure hyperglyceridemia Referrals Ear/Nose/Throat Referral J33.9 - Nasal polyp, unspecified Medications: New ketoconazole 2% 1 appl topical DAILY 60 grams 0RF 4 weeks N47.1 - Phimosis ipratropium bromide administer into each nostril 2 sprays intranasal TID 15 mL 0RF 30 days J01.11 - Acute recurrent frontal sinusitis Refilled amoxicillin-pot clavulanate 875-125 mg 1 tab PO BID 20 tabs 0RF 10 days J01.11 - Acute recurrent frontal sinusitis omeprazole 40 mg PO DAILY PRN 90 caps 2RF Acid Reflux E78.1 - Pure hyperglyceridemia prednisone 40 mg (2 x 20 mg) PO DAILY 10 tabs 0RF 5 days
[2025-02-25 15:33] VITALS: BP 130/78; PULSE 95; RESP 18; TEMP 36; O2SAT 97; BMI 28.9
--- OUTSIDE RECORDS SUMMARY | 2025-02-25 16:26 | XMS_ITS | Encounter Summary ---
Author Organization [facility] Address [address] [place] [address] [place] [address] Phone Care Team Providers Care Licensed Home Inspector Name Role Phone Dayton Gould Primary Care Provider + Encounter Details Date Type Department Care Team (Late st Contact Info) Description 09/12/2023 Procedure Pass [facility] [place] [place] [address] Social History Tobacco Use Types Packs/Day Years Used Date Smoking Tobacco: Former Smokeless Tobacco: Never Alcohol Use Standard Drinks/Week Comments Never 0 (1 standard drink = 0.6 oz pur e alcohol) Education Answer Date Recorded Are you interested in more education? Not on kris e 10/27/2022 Are you concerned about learning? Not on file 10/27/2022 No 10/27/2022 No 10/27/2022 Digital Access Answer Date Recorded No 11/25/2022 No 11/25/2022 Reliable internet access at home? Not on file 11/25/2022 Device with a working camera? Not on file Sex and Gender Information Value Date Recorded Sex Assigned at Male 10/05/2020 10:54 AM EDT Legal Sex Male 9:23 AM EDT Gender Identity Male 10/05/2020 10:54 AM EDT Sexual Orientation Straight 01/07/2024 11 :54 PM EDT documented as of this encounter Plan of Treatment Upcoming Encounters Date Type Department Care Team (Late st Contact Info) Description 09/20/2026 9:00 AM EDT Office Visit [facility] [address] [place] [address] [place] [address] Bernice Jacome [address], [address] [place] [address] [email or web address] documented as of this encounter Visit Diagnoses Not on filedocumented in this encounter Additional Health Concerns Infection Onset Date Last Indicated Resolved Time CoV-Risk Comment:Per note documentation 06/07/2024 06/07/2024 7:18 AM EST CoV-Risk Comment:Per note documentation 08/04/2024 08/04/2024 9:21 AM EST CDiff-Risk 08/04/2024 08/05/2024 08/05/2024 2:09 AM EST documented as of this encounter Care Teams Licensed Home Inspector Relationship Specialty Start Date End Date Dayton Gould PA [address] [place] [address] PCP - General 10/05/20 documented as of this encounter Additional Source Comments The information contained in this document represents components of the legal health record. It is not the complete legal health record.[facility]
--- OUTSIDE RECORDS SUMMARY | 2025-02-25 16:26 | XMS_ITS | Patient Health Record ---
Author Organization [facility] Address [address] [place] [address] Care Team Providers Care Retail Event Coordinator Name Role Phone Dayton Gould Primary Care Provider Unavailab Pilo Johnson Jr Unavailable [phone] Allergies No Known Allergies Reason For Referral No Information Medications Medication SIG (Take, Route, Frequency, Duration) Notes Start Date End Date Status Fenofibrate 160 MG Oral for 30 Active Mometasone Furoate 50 MCG/ACT Nasal for 30 Active ALPRAZolam 1 MG (Schedule IV Drug) T MARCELA 1 TABLET BY MOUTH EVERY DAY AT BEDTIME Oral for 30 Active Atorvastatin Calcium 40 MG Oral for 30 Active clonazePAM 1 MG Oral for 30 Ac tive Immunizations Vaccine Route Administration Date Status Comme nts Influenza Unknown 02/21/2021 Administered Influenza Unknown 05/31/2022 Refused Social History Alcohol Screen Question Answer Notes Did you have a drink containing alcohol in the p ast year? No Points 0 Interpretation Negative Section Notes: Nonsmoker; no alcohol Problems Problem Type SNOMED Code ICD Code Onset Dates Problem Status W/U Status Risk Notes Problem 850191846 Ileostomy status (Z93.2) Active confirmed Problem 90520247 Ulcerative colit is without complications, unspecified location (K51.90) Active confirmed Problem Hypertriglyceridemia (134501894) Hypertriglyceridemia (E78.1) Active confirmed Problem Pancreatitis (00056188) Pancreatitis (K85.90) Active confirmed Problem 975457187 Acute pancreatit is without infection or necrosis, unspecified pancreatitis type (K85.90) Active confirmed Problem 99330162 Ulcerative colit is, unspecified (K51.90) Active confirmed Plan Of Treatment Pending Test Test Name Order Date LIVER PROFILE 05/31/2022 Triglycerides 05/31/2022 Lipase 05/31/2022 Insurance Providers Payer Name Payer Address Payer Phone Subscriber Number Group Number Insured Name Patient Relationship to Insured Coverage Start Date Coverage End Date [facility] Plan [address] [address] [place], [place] [id number] [phone] [id number] KAMARI DELEON Self - patient is the insured Medical (General) History Medical History History ICD Code DVT Ulcerative colitis status po st J-pouch, takedown and APR with 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 pancreatitis Pancreatitis and hospitaliza tions in 11/2021 and 05/2022--TG's > 4000 in 05/2022---noncompliant with medication Surgical History Surgery Date(Month/Year) IVC filter placement 1999 Ileostomy surgeries x 6
--- OUTSIDE RECORDS SUMMARY | 2025-02-25 16:27 | XMS_ITS | Encounter Summary ---
Author Organization [facility] Address [address] [facility] [address] [place] [address] Phone Care Team Providers Care Pelletizer Name Role Phone Dayton Gould Primary Care Provider + Encounter Details Date Type Department Care Team (Late st Contact Info) Description 02/20/2025 Procedure Pass [facility], Ct Scan - [facility] [address] [place] [address] Social History Tobacco Use Types Packs/Day Years [...] your housing situation today? I have marita sing 02/20/2025 How many times have you move [...] Description 09/20/2026 9:00 AM EDT Office Visit [facility] [place] [facility] [address] [place] [address] [place] [address] Bernice Jacome [address] [place] [address], [address] [place] [address] [email or web address] documented as of this encounter Visit Diagnoses Not on filedocumented in this encounter Care Teams Pelletizer Relationship Specialty Start Date End Date Dayton Gould PA [address] [place] [address] PCP - General 10/05/20 documented as of this encounter Additional Source Comments The information contained in this document represents components of the legal health record. It is not the complete legal health record.[facility]
--- OUTSIDE RECORDS SUMMARY | 2025-02-25 16:27 | XMS_ITS | Encounter Summary ---
Author Organization [facility] Address [address] [facility] [address] [place] [address] Phone Care Team Providers Care Education Spec Name Role Phone Dayton Gould Primary Care Provider + Encounter Details Date Type Department Care Team (Late st Contact Info) Description 07/29/2022 Procedure Pass [facility], Ct Scan - [address] [address] Social History Tobacco Use Types Packs/Day Years Used Date Smoking Tobacco: Former Smokeless Tobacco: Never Alcohol Use Standard Drinks/Week Comments Never 0 (1 standard drink = 0.6 oz pur e alcohol) Sex and Gender Information Value Date Recorded Sex Assigned at Male 10/05/2020 10:54 AM EDT Legal Sex Male 9:23 AM EDT Gender Identity Male 10/05/2020 10:54 AM EDT Sexual Orientation Straight 01/07/2024 11 :54 PM EDT documented as of this encounter Functional Status * Calculated C-SSRS Risk Score (Lifetime/Recent) Answer Date of Assessment Author No Risk Indicated 07/29/2022 3:45 PM Leola Flynn RN * [place] Suicide Severity Rating Scale (Screener/Recent Self-Report) Question Answer Date of Assessment Author 1. Wish to be (Past 1 Month) No 023 3:45 PM Leola Flynn, TAI 2. Non-Specific Active Suici william Thoughts (Past 1 Month) No 07/29/2022 3:45 PM Leola Flynn, TAI 6. Suicidal Behavior (Lifetime) No 3 3:45 PM EST Leola Hinkle RN documented as of this encounter Plan of Treatment Upcoming Encounters Date Type Department Care Team (Late st Contact Info) Description 09/20/2026 9:00 AM EDT Office Visit [facility] [address] [place] [address] Bernice Jacome [address] [facility], [address] [place] [address] [email or web address] documented as of this encounter Visit Diagnoses Not on filedocumented in this encounter Additional Health Concerns Infection Onset Date Last Indicated Resolved Time CoV-Risk 05/17/2023 05/17/2023 05/17/2023 2:05 AM EST COVID-19 05/17/2023 05/17/2023 06/07/2023 1:26 AM EST CoV-Risk 06/16/2023 06/16/2023 06/17/2023 10:3 1 AM EST CoV-Risk Comment:Per note documentation 06/07/2024 06/07/2024 7:18 AM EST CoV-Risk Comment:Per note documentation 08/04/2024 08/04/2024 9:21 AM EST CDiff-Risk 08/04/2024 08/05/2024 08/05/2024 2:09 AM EST documented as of this encounter Care Teams Education Spec Relationship Specialty Start Date End Date Dayton Gould PA [address] [place] [address] PCP - General 10/05/20 documented as of this encounter Additional Source Comments The information contained in this document represents components of the legal health record. It is not the complete legal health record.[facility]
--- OUTSIDE RECORDS SUMMARY | 2025-02-25 16:27 | XMS_ITS | Encounter Summary ---
Author Organization [facility] Address [address] [facility] [address] [place] [address] Phone Care Team Providers Care Varnisher Apprentice Name Role Phone Dayton Gould Primary Care Provider + Encounter Details Date Type Department Care Team (Late st Contact Info) Description 06/16/2023 Procedure Pass [facility], Ct Scan - [address] [address] Social History Tobacco Use Types Packs/Day Years [...] Date of Assessment Author No Risk Indicated 06/16/2023 6:47 PM Leandro Mukherjee RN * [place] Suicide Severity Rating Scale (Screener/Recent Self-Report) Question Answer Date of Assessment Author 1. Wish to be (Past 1 Month) No 023 6:47 PM Leandro Mukherjee RN 2. Non-Specific Active Suici william Thoughts (Past 1 Month) No 06/16/2023 6:47 PM Dimitri Mukherjee RN 6. Suicidal Behavior (Lifetime) No 6:47 PM Leandro Mukherjee RN documented as of this encounter Plan of Treatment Upcoming Encounters Date Type Department Care Team (Late st Contact Info) Description 09/20/2026 9:00 AM EDT Office Visit [facility] [address] [place] [address] Bernice Jacome [address] [place] [address], [address] [place] [address] [email or web address] documented as of this encounter Visit Diagnoses Not on filedocumented in this encounter Additional Health Concerns Infection Onset Date Last Indicated Resolved Time CoV-Risk 06/16/2023 06/16/2023 06/17/2023 10:3 1 AM EST CoV-Risk Comment:Per note documentation 06/07/2024 06/07/2024 4 7:18 AM EST CoV-Risk Comment:Per note documentation 08/04/2024 08/04/2024 5 9:21 AM EST CDiff-Risk 08/04/2024 08/05/2024 08/05/2024 2:09 AM EST documented as of this encounter Care Teams Varnisher Apprentice Relationship Specialty Start Date End Date Dayton Gould PA [facility] [place] [address] PCP - General 10/05/20 documented as of this encounter Additional Source Comments The information contained in this document represents components of the legal health record. It is not the complete legal health record.[facility]
--- OUTSIDE RECORDS SUMMARY | 2025-02-25 16:27 | XMS_ITS | Encounter Summary ---
Author Organization [facility] Address [address] [facility] [address] [place] [address] Phone Care Team Providers Care Tobacco Buyer Name Role Phone Dayton Gould Primary Care Provider + Encounter Details Date Type Department Care Team (Late st Contact Info) Description 12/15/2021 Procedure Pass [facility] Admitting Dept Virtual Department [address] [place] [address] Social History Tobacco Use Types Packs/Day Years [...] EDT Office Visit [facility] [address] [place] [address] Bernice Jacome [address] [place] [address], [address] [place] [address] [email or web address] documented as of this encounter [...] documented as of this encounter Care Teams Tobacco Buyer Relationship Specialty Start Date End Date Dayton Gould PA [address] [place] [address] PCP - General 10/05/20 documented as of this encounter Additional Source Comments The information contained in this document represents components of the legal health record. It is not the complete legal health record.[facility]
--- OUTSIDE RECORDS SUMMARY | 2025-02-25 16:28 | XMS_ITS | Encounter Summary ---
Author Organization [facility] Address [address] [place] [address] Phone Care Team Providers Care Java J2Ee Software Engineer Name Role Phone Dayton Gould Primary Care Provider + Encounter Details Date Type Department Care Team (Late st Contact Info) Description 06/07/2024 Procedure Pass [facility], Ct Scan - [facility] [address] [place] [address] Social History Tobacco Use Types Packs/Day Years Used Date Smoking Tobacco: Former Smokeless Tobacco: Never Alcohol Use Standard Drinks/Week Comments Never 0 (1 standard drink = 0.6 oz pur e alcohol) Education Answer Date Recorded Are you interested in more education? Not on kris e 10/27/2022 Are you concerned about learning? Not on file 10/27/2022 No 10/27/2022 No 10/27/2022 Transportation Answer Date Recorded Has the lack of transportati on kept you from medical appointments or from getting medications? No 03/01/2024 Digital Access Answer Date Recorded No 11/25/2022 No 11/25/2022 Reliable internet access at home? Not on file 11/25/2022 Device with a working camera? Not on file Intimate Partner Violence Answer Date R ecorded Are you denied basic needs s uch as food, clothing, or medical care? No 06/08/2024 In the past 12 months have y ou been in a relationship with a person who hurts, threatens, or tries to control you? No 06/08/2024 Are you denied basic needs s uch as food, clothing, or medical care? No 06/08/2024 In the past 12 months have y ou been in a relationship with a person who hurts, threatens, or tries to control you? No 06/08/2024 Sex and Gender Information Value Date Recorded Sex Assigned at Male 10/05/2020 10:54 AM EDT Legal Sex Male 9:23 AM EDT Gender Identity Male 10/05/2020 10:54 AM EDT Sexual Orientation Straight 01/07/2024 11 :54 PM EDT documented as of this encounter Functional Status * Calculated C-SSRS Risk Score (Lifetime/Recent) Answer Date of Assessment Author No Risk Indicated 06/08/2024 3:07 AM Tino Cooper RN * [place] Suicide Severity Rating Scale (Screener/Recent Self-Report) Question Answer Date of Assessment Author 1. Wish to be (Past 1 Month) No 024 3:07 AM Tino Cooper RN 2. Non-Specific Active Suici william Thoughts (Past 1 Month) No 06/08/2024 3:07 AM Rivera Cooper RN 6. Suicidal Behavior (Lifetime) No 4 3:07 AM Tino Cooper RN documented as of this encounter Plan of Treatment Upcoming Encounters Date Type Department Care Team (Late st Contact Info) Description 09/20/2026 9:00 AM EDT Office Visit [facility] [address] [place] [address] Bernice Jacome [address] [place] [address], [address] [place] [address] [email or web address] documented as of this encounter Visit Diagnoses Not on filedocumented in this encounter Additional Health Concerns Infection Onset Date Last Indicated Resolved Time CoV-Risk Comment:Per note documentation 06/07/2024 06/07/2024 4 7:18 AM EST CoV-Risk Comment:Per note documentation 08/04/2024 08/04/2024 5 9:21 AM EST CDiff-Risk 08/04/2024 08/05/2024 08/05/2024 2:09 AM EST documented as of this encounter Care Teams Java [email or web address] Software Engineer Relationship Specialty Start Date End Date Dayton Gould PA [address] [place] [address] PCP - General 10/05/20 documented as of this encounter Additional Source Comments The information contained in this document represents components of the legal health record. It is not the complete legal health record.[facility]
--- OUTSIDE RECORDS SUMMARY | 2025-02-25 16:28 | XMS_ITS | Clinical Summary ---
Author Organization [facility] Address [address] [place] [address] Care Team Providers Care Kitchen Hand Name Role Phone Unavailable Primary Care Provider [...] of 3 - 19+ 3-dose series) 1999 HPV Vaccines (1 - 3-dose SCD M series) 2007 COVID-19 Vaccine ( - 2023-2 5 season) 2024 Pneumococcal Vaccine: Pediat jeremiah (0-5 Years) and At-Risk Patients (6 to 49 Years) Aged Out No longer eligible b ased on patient's age to complete this topic
--- OUTSIDE RECORDS SUMMARY | 2025-02-25 16:28 | XMS_ITS | Encounter Summary ---
Author Organization [facility] Address [address] [facility] [address] [place] [address] Phone Care Team Providers Care Substation Engineer Name Role Phone Dayton Gould Primary Care Provider + Encounter Details Date Type Department Care Team (Late st Contact Info) Description 12/11/2021 Procedure Pass [facility], Ct Scan - [address] [address] Social History Tobacco Use Types Packs/Day Years Used Date Smoking Tobacco: Former Smokeless Tobacco: Never Sex and Gender Information Value Date Recorded Sex Assigned at Male 10/05/2020 10:54 AM EDT Legal Sex Male 9:23 AM EDT Gender Identity Male 10/05/2020 10:54 AM EDT Sexual Orientation Straight 01/07/2024 11 :54 PM EDT documented as of this encounter Functional Status * Calculated C-SSRS Risk Score (Lifetime/Recent) Answer Date of Assessment Author No Risk Indicated 12/12/2021 5:39 AM EDT Yoli Higginbotham RN * [place] Suicide Severity Rating Scale (Screener/Recent Self-Report) Question Answer Date of Assessment Author 1. Wish to be (Past 1 Month) No 022 5:39 AM EDT Edil Higginbotham, RN 2. Non-Specific Active Suici william Thoughts (Past 1 Month) No 12/12/2021 5:39 AM EDT Edil Higginbotham, RN 6. Suicidal Behavior (Lifetime) No 5:39 AM EDT Edil Higginbotham RN documented as of this encounter Plan of Treatment Upcoming Encounters Date Type Department Care Team (Late st Contact Info) Description 09/20/2026 9:00 AM EDT Office Visit [facility] [address] [place] [address] Bernice Jacome [address] [facility], [address] [place] [address] [email or web address] documented as of this encounter Visit [...] documented as of this encounter Care Teams Substation Engineer Relationship Specialty Start Date End Date Dayton Gould PA [address] [place] [address] PCP - General 10/05/20 documented as of this encounter Additional Source Comments The information contained in this document represents components of the legal health record. It is not the complete legal health record.[facility]
--- OUTSIDE RECORDS SUMMARY | 2025-02-25 16:28 | XMS_ITS | Encounter Summary ---
Author Organization [facility] Address [address] [facility] [address] [place] [address] Phone Care Team Providers Care Ore Miner Name Role Phone Dayton Gould Primary Care Provider + Encounter Details Date Type Department Care Team (Late st Contact Info) Description 08/24/2024 Procedure Pass [facility], Ct Scan - [facility] [address] [place] [address] Social History Tobacco Use Types Packs/Day Years [...] got money to buy more. Never True 08/05/2024 Within the past 6 months the food we bought just didn't last and we didn't have enough money to get more. Never True Residential Stability Answer Date Recor ded What is your housing situation today? I have marita sing 08/05/2024 How many times have you move d in the past 12 months? Zero (I did not move) 08/05/2024 Paying for Meds Answer Date Recorded Do you have trouble paying for medicines? No 08/05/2024 Paying Utility Bills Answer Date Record ed Do you have trouble paying your heating or elect ricity bill? No 08/05/2024 Transportation Answer Date Recorded Has the lack of transportati on kept you from medical appointments or from getting medications? Yes 08/05/2024 Digital Access Answer Date Recorded No 08/05/2024 Yes 08/05/2024 Do you have reliable internet access at home? Ye s 08/05/2024 Do you have a device (e.g., phone, tablet, computer) with a working camera? Yes 08/05/2024 Intimate Partner Violence Answer Date R ecorded Are you denied basic needs s uch as food, clothing, or medical care? No 08/23/2024 In the past 12 months have y ou been in a relationship with a person who hurts, threatens, or tries to control you? No 08/23/2024 Are you denied basic needs s uch as food, clothing, or medical care? No 08/23/2024 In the past 12 months have y ou been in a relationship with a person who hurts, threatens, or tries to control you? No 08/23/2024 Sex and Gender Information Value Date Recorded [...] EDT Office Visit [facility] [address] [place] [address] [place] [address] Bernice Jacome [address] [place] [address], [address] [place] [address] [email or web address] documented as of this encounter Visit Diagnoses Not on filedocumented in this encounter Care Teams Ore Miner Relationship Specialty Start Date End Date Dayton Gould PA [address] [place] [address] PCP - General 10/05/20 documented as of this encounter Additional Source Comments The information contained in this document represents components of the legal health record. It is not the complete legal health record.[facility]
--- OUTSIDE RECORDS SUMMARY | 2025-02-25 16:28 | XMS_ITS | Encounter Summary ---
Author Organization [facility] Address [address] [place] [address] Phone Care Team Providers Care Wellness Nurse Name Role Phone Dayton Gould Primary Care Provider + Encounter Details Date Type Department Care Team (Late st Contact Info) Description 06/09/2024 Procedure Pass [facility], Ct Scan - [facility] [address] [place] [address] Social History Tobacco Use Types Packs/Day Years [...] 09/20/2026 9:00 AM EDT Office Visit [facility] [address] [place] [address] Bernice Jacome [address] [place] [address], [address] [place] [address] [email or web address] documented as of this encounter Visit Diagnoses Not on filedocumented in this encounter Additional Health Concerns Infection Onset Date Last Indicated Resolved Time CoV-Risk Comment:Per note documentation 08/04/2024 08/04/2024 9:21 AM EST CDiff-Risk 08/04/2024 08/05/2024 08/05/2024 2:09 AM EST documented as of this encounter Care Teams Wellness Nurse Relationship Specialty Start Date End Date Dayton Gould PA [facility] [place] [address] PCP - General 10/05/20 documented as of this encounter Additional Source Comments The information contained in this document represents components of the legal health record. It is not the complete legal health record.[facility]
--- OUTSIDE RECORDS SUMMARY | 2025-02-25 16:28 | XMS_ITS | Clinical Summary ---
Author Organization [facility] Address [address] [facility] [address] [place] [phone] Phone Care Team Providers Care Director Of Digital Marketing Name Role Phone Dayton Gould Primary Care Provider + Allergies No known active allergies Medications oxymetazoline (AFRIN) 0.05 % nasal spray 2 sprays by Nasal route 2 (two) times a day as needed for congestion. Active niacin 250 mg TbER Take 2 tablets by mouth every morning. 12/10/2023 Active omeprazole (PRILOSEC) 40 MG capsule Take 40 mg by mouth daily. 01/23/2024 Active gemfibroziL (LOPID) 600 MG tablet Take 1 tablet (600 mg total) by mouth 2 (two) times a day. 180 tablet 06/13/2024 Active metoprolol succinate (TOPROL-XL) 25 MG 24 hr tablet Take 1 tablet (25 mg total) by mouth daily. 90 tablet 1 07/08/2024 Active celecoxib (CELEBREX) 100 MG capsule Take 1 capsule (100 mg total) by mouth 2 (two) times a day. 14 capsule 11/30/2024 Active Active Problems Problem Noted Date Diagnosed Date Acute pancreatitis without infection or necrosis 10/05/2020 Assessment & Plan (06/08/2024 8:58 AM EST): Appears to be related to hypertriglyceridemia secondary to noncompliance with outpatient medications. Gastroenterology consultation has been obtained. Continue with aggressive IV fluids with increase in fluids at this morning. Oral hydration will be liberated as well. Serial triglyceride levels. Goals to start insulin infusion however patient's blood sugars are limiting that and therefore will increase D5 NS infusion. Continue to monitor [id number] blood sugars with goals of eventually initiating insulin. Assessment & Plan (03/05/2024 11:06 AM EDT): Secondary to hypertriglyceridemia. Came in with a level of nearly 4000, with a lipase peaking at 1154. Was in the ICU on an insulin drip, and the triglycerides came down rapidly. Unfortunately remains significantly symptomatic. Was recently switched from gemfibrozil to fenofibrate which may have instigated this rise in triglycerides. Switched from fish oil to flaxseed oil due to odor. Failed a single statin due to arthralgias, however its not clear that a lower-potency agent has been tried. WBCs back down almost normal, no further fevers Today finally feeling better Has been switched back to gemfibrozil Niacin is continued Will continue to encourage dietary and exercise Will advance diet Assessment & Plan (12/16/2021 1:48 PM EDT): He has had previous episodes of triglyceride related pancreatitis and the last admitted to [facility] in September 2020 when triglyceride levels were greater than 4000 after stopping medication Was recently admitted to [facility] for recurrent pancreatitis. Was treated supportively and discharged home. He presented back to [facility] with recurrent abdominal pain, bloating, vomiting and inability to advance diet. Lipase levels elevated in the 200s CT abdomen/pelvis on day prior to admission showed fat stranding near the pancreatic head and mild distention of the distal esophagus MRCP showed minimal peripancreatic edema keeping with history of pancreatitis and normal pancreatic ductal anatomy. No cholelithiasis . Upper endoscopy performed on 12/15 showed reflux esophagitis and bilious gastric fluid suggesting bile gastritis Outpatient improving does not have nausea vomiting. Still has some abdominal discomfort. Likely combination of gastritis and pancreatitis On Carafate and Protonix advance to low-fat diet today Regular GI is in [place] Dr. Bright Follow over the day and reassess for discharge tomorrow . Decrease analgesia to oral oxycodone Hypertriglyceridemia 10/05/2020 Assessment & Plan (08/05/2024 6:53 PM EST): Patient has history of known triglyceridemia and also recent admission for pancreatitis related to hypertriglyceridemia, was in the ICU in June. - this admission does not have pancreatitis Assessment & Plan (08/04/2024 6:07 PM EST): Patient has history of known triglyceridemia and also recent admission for pancreatitis related to hypertriglyceridemia, was in the ICU in June. Today his lipase is low, 83, abdominal exam relatively benign Doubt acute pancreatitis but we will monitor closely, check triglyceride level and continue his usual Lopid and niacin. He says he is supposed to be taking fish oil but cannot tolerate it Assessment & Plan (06/08/2024 8:58 AM EST): Started on oral agents. Will check serially. Given the refractory nature of the hypertriglyceridemia, niacin seems reasonable as well as omega-3 fatty acid and fibrate therapy. Assessment & Plan (12/16/2021 1:42 PM EDT): Triglyceride levels under much better control compared to his prior admission a year ago Triglyceride level 198 -- Continue fenofibrate and atorvastatin Class 1 obesity in adult 10/05/2020 Microcytic anemia 10/05/2020 Assessment & Plan (12/16/2021 1:52 PM EDT): check iron History of DVT (deep vein thrombosis) 10/05/2020 Assessment & Plan (08/05/2024 6:53 PM EST): Patient has a history of DVT, has an IVC filter and is not on anticoagulation chronically Assessment & Plan (08/04/2024 6:07 PM EST): Patient has a history of DVT, has an IVC filter and is not on anticoagulation chronically Patient has normal platelet count will place him on DVT prophylaxis, denies acute chest pain presently, not hypoxic Assessment & Plan (06/08/2024 8:58 AM EST): IVC filter in place. Not chronically anticoagulated. DVT prophylaxis with low molecular weight heparin. Presence of IVC filter 10/05/2020 GERD (gastroesophageal reflux disease) Assessment & Plan (12/15/2021 4:43 PM EDT): Continue Protonix twice daily Ileostomy in place 10/05/2020 Assessment & Plan (12/16/2021 1:42 PM EDT): He has a history of ulcerative colitis and total colectomy -- Monitoring ostomy output-loose stool Resolved Problems Problem Noted Date Diagnosed Date Resolved Date OBIE (acute kidney injury) 08/04/2024 Assessment & Plan (08/05/2024 6:53 PM EST): Patient's creatinine is 4 on admission, his usual baseline is 0.8. Calcium is 10.6, lactic acid 2.37. Patient appeared significantly volume depleted from decreased oral intake and stool output hold home ibuprofen - 2/4 improving but not back to baseline, cont IV and oral hydration another night Assessment & Plan (08/04/2024 6:07 PM EST): Patient's creatinine is 4 on admission, his usual baseline is 0.8. Calcium is 10.6, lactic acid 2.37. Patient appears significantly volume depleted and is having nausea, very high output from his ostomy. We will hydrate aggressively, check bladder scan to ensure urine output, follow creatinine closely, avoid nephrotoxic meds, hold home ibuprofen. Consider nephrology consultation Metabolic acidosis, increased anion gap 08/04/2024 08/06/2024 Assessment & Plan (08/05/2024 6:53 PM EST): - renal function improving, elevated lactic acid level improved - bicarb is improving Assessment & Plan (08/04/2024 6:07 PM EST): Patient has a bicarb of 17, anion gap of 27, OBIE and elevated lactate. So far infectious workup is negative, SARS-CoV-2 PCR and influenza negative, will check UA, chest x-ray, repeat lactate, IV fluids, follow closely Hypophosphatemia 06/09/2024 06/13/2024 Acute kidney injury 06/17/2023 03/01/20 24 Assessment & Plan (06/17/2023 2:34 AM EST): Prerenal azotemia. Will give IV fluids and avoid nephrotoxic medications. Gastroenteritis 06/17/2023 08/06/2024 Assessment & Plan (08/05/2024 6:53 PM EST): Patient presents tonight with multiple symptoms, the worst of which he states are nausea diarrhea and generalized bodyaches. A family member who is visiting has gastroenteritis/possible norovirus with the same symptoms. In the ED, no leukocytosis or fevers, LFTs similar to previous, lipase reassuringly low - 2/4 improving symptoms, interested in advancing diet and even going home - trial solid diet - cont to monitor fluid loss in ostomy stool outpt - stool culture and ova and parasites pending - norovirus seems likely but will hold off sending it as he seems to be improving - blood ctx NGTD, covid 19 negative, influenza negative, cdiff negative, UA nitrite positive but only trace LE Assessment & Plan (08/04/2024 6:07 PM EST): Patient presents tonight with multiple symptoms, the worst of which he states are nausea diarrhea and generalized bodyaches. A family member who is visiting has gastroenteritis/possible norovirus with the same symptoms. Patient states he has some abdominal discomfort/cramps, no severe or focal abdominal pain and states this is not similar to prior episodes of pancreatitis, he does have an ostomy that has increased output. This output is liquid no blood, reports chills body aches diaphoresis. In the ED, no leukocytosis or fevers, LFTs similar to previous, lipase reassuringly low We will hydrate with IV fluid, antiemetics, provide supportive care, monitor closely and CT of the abdomen if he has pain/acute symptoms. Will check stool studies. Assessment & Plan (06/17/2023 2:35 AM EST): Seen in the emergency department 06/14 and given prednisone for possible Crohn's disease flare. No bloody effluent or inflammation seen on CT scan. Additionally, his children had a gastrointestinal illness last week. Likely a viral gastroenteritis. I will continue with the current prednisone burst, but will not give him any additional corticosteroids at this time. Encounters Date Type Department Care Team Description 02/20/2025 12:26 AM EDT - 02/20/2025 5:53 AM EDT Emergency [facility] [address] [place] [address] Samir Dee, DO Discharge Disposition: Home or Self Care 02/20/2025 Procedure Pass [facility], Ct Scan - [facility] [address] [place] [address] 11/30/2024 10:04 PM EDT - 11/30/2024 10:55 PM EDT Emergency [facility] [address] [place] [address] Discharge Disposition: Home or Self Care 11/26/2024 Orders Only [facility] [address], [address] [place] [address] Twila Brito, JAVID PVC (premature ventricular contraction) (Primary Dx) from Last 3 Months Immunizations Immunization Administration Dates Next Due COVID-19 (Pre-04/23) Pfizer Vaccine, mRNA, PF Influenza Quadrivalent Preservative Free IM 05/02 Influenza Quadrivalent w/ Preservative IM 2016 Pneumococcal polysaccharide PPSV23 09/02/2015 Tdap 10/27/2014 Family History Medical History Relation Comments Diabetes mellitus Mother Relation Status Comments Mother Social History Tobacco Use Types Packs/Day Years Used Date Smoking Tobacco: Former Smokeless Tobacco: Never Tobacco Cessation:Counseling Given: Not Answered Alcohol Use Standard Drinks/Week Comments Never 0 [...] Orientation Straight 01/07/2024 11 :54 PM EDT Last Filed Vital Signs Vital Sign Reading [...] Mass Index 28.73 02/19/2025 9:29 PM EDT Plan of Treatment Upcoming Encounters Date Type Department Care Team (Late st Contact Info) Description 09/20/2026 9:00 AM EDT Office Visit Kyle [address] [place] [address] Bernice Jacome [address], [address] [place] [address] [email or web address] Health Maintenance Due Date Last Done Comments DEPRESSION SCREENING 1992 SMOKING Hx and SMOKELESS TOBACCO SCREENING 1993 HEPATITIS C SCREENING 1998 HIV ONE-TIME SCREENING (18-65 YEARS) 1998 COVID-19 VACCINE ( season) 2024 11/01/2020 Adult Td,Tdap Booster 10/27/2024 10/27/2014 BLOOD PRESSURE 01/05/2025 07/08/2024 INFLUENZA VACCINE (#1) 2025 05/16/2019, 2016 SCREENING FOR DIABETES 02/20/2028 02/19/2025, 2023 LIPID PANEL 02/28/2029 02/29/2024, 04/0 01/2021, 10/06/2020, Additional history exists PNEUMOCOCCAL VACCINES (0-49 years) Aged Out 09/02/2015 No longer eligible based on patient's age to complete this topic HEPATITIS A VACCINES Aged Out No long er eligible based on patient's age to complete this topic HIB VACCINES Aged Out No longer eligi ble based on patient's age to complete this topic MENINGOCOCCAL VACCINES (ACWY) Aged Out No longer eligible based on patient's age to complete this topic MENINGOCOCCAL VACCINES (B) Aged Out N o longer eligible based on patient's age to complete this topic Medical Devices Not on file Procedures Procedure Name Priority Date/Time Associated Diagnosis Comments CT ABDOMEN/PELVIS WITH CONTRAST Routine 02/20/2025 2:46 AM EDT TROPONIN STAT 02/19/2025 11:02 PM EDT LFTS (HEPATIC PANEL) Routine 02/19/2025 9:58 PM EDT LIPASE Routine 02/19/2025 9:58 PM EDT TROPONIN STAT 02/19/2025 9:58 PM EDT BASIC METABOLIC PANEL STAT 02/19/2025 9:58 PM EDT CBC AND DIFFERENTIAL STAT 02/19/2025 9:58 PM EDT ECG 12-LEAD STAT 02/19/2025 9:27 PM EDT ECG 12-LEAD STAT 11/30/2024 10:03 PM EDT LIPID PANEL STAT 02/29/2024 5:05 PM EDT from Last 3 Months or Most Recently Relevant to Health Maintenance Results * CT ABDOMEN/PELVIS WITH CONTRAST (02/20/2025 [...] and sagittalplanes. COMPARISON: CT ABDOMEN/PELVIS WITH CONTRAST 2024- FINDINGS: Lower Chest: Normal. Liver: Normal. Biliary [...] t * Troponin (02/19/2025 11:02 PM EDT) Only the most recent of2 resultswithin the time period is included. Troponin-T, HS Gen5 <6 0 - 14 ng/L [facility] Blood 02/19/2025 11:0 2 PM EDT 02/19/2025 11:12 PM EDT Elias Gotti MD LAB BLOOD ORDERAB LES Final Result Performing Organization Address City/[facility]/ZIP Co de Phone Number [address] [address] * LFTs (hepatic panel) (02/19/2025 9:58 PM EDT) Pathologist [facility] ALKALINE PHOSPHATASE 101 39 - 117 U/L [facility] TOTAL BILIRUBIN <0.2 0.0 - 1.2 mg/dL [facility] DIRECT BILIRUBIN 0.1 0.0 - 0.2 mg/dL [facility] Bilirubin (Indirect) NOT CALCULATED 0 - 1.5 mg/dL [facility] AST 20 0 - 37 U/L [facility] ALT 20 0 - 40 U/L [facility] TOTAL PROTEIN 7.6 6.5 - 8.0 g/dL [facility] ALBUMIN 4.3 3.9 - 4.8 g/dL [facility] GLOBULIN 3.3 1 - 4.8 g/dL [facility] A/G Ratio 1.30 1.00 - 4.80 RATIO [facility] 02/19/2025 9:58 PM EDT 02/19/2025 10:08 PM EDT us Elias Gotti MD LAB BLOOD ORDERAB LES Final Result Performing Organization Address [facility]/[place] Co de Phone Number [address] [address] * (ABNORMAL) CBC and differential (02/19/2025 9:58 PM EDT) Pathologist [facility] WBC 8.74 4.00 - 11.00 K/uL [facility] RBC 5.13 4.50 - 5.90 M/uL [facility] HGB 13.8 13.5 - 17.5 g/dL [facility] HCT 39.1(L) 41.0 - 53.0 % [facility] PLT 315 150 - 450 K/uL [facility] MCV 76.2(L) 80.0 - 100.0 fL [facility] MCH 26.9(L) 27.0 - 31.0 pg [facility] MCHC 35.3 32.0 - 36.0 g/dL [facility] RDW 12.5 11.5 - 14.5 % [facility] MPV 9.2 8.4 - 12.0 fL [facility] NRBC 0.00 0.00 /100 WBCs [facility] ABSOLUTE NRBC 0.00 0.00 K/uL [facility] DIFF METHOD Auto [facility] NEUTS 39.2(L) 48.0 - 76.0 % [facility] LYMPHS 47.7(H) 18.0 - 41.0 % [facility] MONOS 7.0 4.0 - 11.0 % [facility] EOS 5.4(H) 0.0 - 5.0 % [facility] BASOS 0.5 0.0 - 1.5 % [facility] Granulocytes, immature (%) 0.2 0.0 - 0.9 % [facility] ABSOLUTE NEUTS 3.43 1.92 - 7.60 K/uL [facility] ABSOLUTE LYMPHS 4.17(H) 0.72 - 4.10 K/uL [facility] ABSOLUTE MONOS 0.61 0.16 - 1.10 K/uL [facility] ABSOLUTE EOS 0.47 0.00 - 0.50 K/uL [facility] ABSOLUTE BASOS 0.04 0.00 - 0.15 K/uL [facility] Granulocytes, immature 0.02 0.00 - 0.09 K/uL [facility] Blood 02/19/2025 9:58 PM EDT 02/19/2025 10:08 PM EDT us Elias Gotti MD LAB BLOOD ORDERAB LES Final Result [address] [id number] * Lipase (02/19/2025 9:58 PM EDT) LIPASE 58 16 - 63 U/L [facility] 02/19/2025 9:58 PM EDT 02/19/2025 10:08 PM EDT us Elias Gotti MD LAB BLOOD ORDERAB LES Final Result [address] [address] * (ABNORMAL) Basic metabolic panel (02/19/2025 9:58 PM EDT) SODIUM 136 133 - 146 mmol/L [facility] CHLORIDE 99 96 - 108 mmol/L [facility] POTASSIUM 3.5 3.3 - 5.1 mmol/L [facility] Comment:Specimen slightly he molyzed, result may be falsely elevated. CO2 21 21 - 35 mmol/L [facility] BUN 16 6 - 19 mg/dL [facility] CREATININE 0.80 0.5 - 1.5 mg/dL [facility] GLUCOSE 109(H) 70 - 99 mg/dL [facility] CALCIUM 9.3 8.4 - 10.3 mg/dL [facility] EGFR 112 >59 mL/min/1.7 3m2 [facility] Comment:Estimated glomerular filtration rate calculated using the CKD-EPI refit equation. ANION GAP 20 10 - 20 mmol/L [facility] Blood 02/19/2025 9:58 PM EDT 02/19/2025 10:08 PM EDT us Elias Gotti MD LAB BLOOD ORDERAB LES Final Result [address] [address] * ECG 12-LEAD (02/19/2025 9:27 PM EDT) Only the most recent of2 resultswithin the time period is included. Ventricular Rate EKG/MIN 85 BPM [facility] Atrial Rate 85 BPM [facility] ID Interval 144 ms [facility] QRS Duration 82 ms [facility] QT Interval 382 ms [facility] QTC Interval 454 ms [facility] P [place] 56 degrees [facility] R Wave [place] 23 degrees [facility] T Wave [place] 11 degrees [facility] 02/19/2025 9:27 PM EDT 02/20/2025 11:38 PM EDT Narrative [facility] - 02/20/2025 11:38 PM EDT Normal sinus rhythm Possible Left atrial enlargement Nonspecific T wave abnormality Abnormal ECG When compared with ECG of 30-Nov-2024 22:03, No significant change was found Confirmed by Timothy Vegas ([id number]) on 02/20/2025 11:38:54 PM us Elias Gotti MD ECG ORDERABLES F inal Result [facility] * (ABNORMAL) Lipid panel (02/29/2024 5:05 PM EDT) HDL 21 mg/dL [facility] Comment: Interpretation <40 mg/dL: Low HDL cholesterol (major risk factor for CHD) Greater than or equal to 60 mg/dL: High HDL cholesterol ( negative risk factor for CHD) HDL - cholesterol is affected by a number of factors, e.g. smoking, excerise, hormones, sex and age. CHOLESTEROL 764(H) 0 - 240 mg/dL [facility] TRIGLYCERIDES 3,858(H) 30 - 160 mg/dL [facility] LDL NOT CALCULATED 50 - 129 mg/dL [facility] Comment: Unable to calculate due to elevated TRIG of greater than 400. A measured LDL will be performed. CARDIAC RISK RATIO 36.4(H) 3.4 - 5.0 [facility] Blood 02/29/2024 5:05 PM EDT 02/29/2024 5:07 PM EDT us Alexander Foster PA-C LAB BLOOD ORDERABLES Final Re sult Performing Organization Address City/[facility]/ZIP Co de Phone Number [facility] [address] [place], [place] [phone] from Last 3 Months or Most Recently Relevant to Health Maintenance Insurance [facility] [address] [place] [id number] [facility] [address] [id number] [facility] [address] [place] [id number] [facility]CO [facility] Advance Directives For more information, please contact: [phone] (9AM - 5PM [facility], Sunday-Sunday) Documents on File Type Date Recorded Patient Jacket Preparer Expl anation Healthcare Proxy 03/11/2024 4:11 PM * Full Code (Latest Code Status on File) Date Activated Date Inactivated Comments 08/04/2024 5:57 PM Question Answer Comments Code Status Confirmed With: Patient * Full Code Date Activated Date Inactivated Comments 06/08/2024 2:41 AM 08/04/2024 5:57 PM Question Answer Comments Code Status Confirmed With: Patient * Full Code Date Activated Date Inactivated Comments 02/29/2024 9:13 PM 06/08/2024 2:41 AM Question Answer Comments Code Status Confirmed With: Patient * Full Code Date Activated Date Inactivated Comments 06/17/2023 4:39 AM 02/29/2024 9:13 PM Question Answer Comments Code Status Confirmed With: Patient * Full Code Date Activated Date Inactivated Comments 12/12/2021 1:01 PM 06/17/2023 4:39 AM Question Answer Comments Code Status Confirmed With: Other (specify below ) Code Discussion Comments: presumed on basis of a [facility] Teams Director Of Digital Marketing Relationship Specialty Start Date End Date Dayton Gould PA [address] [place] [address] PCP - General 10/05/20 Additional Source Comments The information contained in this document represents components of the legal health record. It is not the complete legal health record.[facility]
--- OUTSIDE RECORDS SUMMARY | 2025-02-25 16:28 | XMS_ITS | Encounter Summary ---
Author Organization [facility] Address [address] [facility] [address] [place] [address] Phone Care Team Providers Care Mechanical Drafter Name Role Phone Dayton Gould Primary Care Provider + Encounter Details Date Type Department Care Team (Late st Contact Info) Description 12/14/2021 Procedure Pass [facility], [address] [address] Social History Tobacco Use Types Packs/Day Years [...] Description 09/20/2026 9:00 AM EDT Office Visit [address] [address] Bernice Jacome [address] [place] [address], [address] [place] [address] [email or web address] documented as of this encounter Visit [...] documented as of this encounter Care Teams Mechanical Drafter Relationship Specialty Start Date End Date Dayton Gould PA [address] [place] [address] PCP - General 10/05/20 documented as of this encounter Additional Source Comments The information contained in this document represents components of the legal health record. It is not the complete legal health record.[facility]
== END 2025-02-25 16:20 | disposition home or self-care (01) ==
LOC: HO.HMCH 15:10
PROVIDERS: PCP Physician Assistant; Visit Provider Physician Assistant
DX: R53.82 Chronic fatigue, unspecified (principal); J01.11 Acute recurrent frontal sinusitis

== ENCOUNTER → 2025-02-25 15:09 | Outpatient (BNVA) | payer OTHER, SELFPAY | PROVIDERS: PCP Physician Assistant; Visit Provider Physician Assistant | DX: R12 Heartburn (principal); I10 Essential (primary) hypertension; R53.82 Chronic fatigue, unspecified; J01.11 Acute recurrent frontal sinusitis; D50.9 Iron deficiency anemia, unspecified; E53.8 Deficiency of other specified B group vitamins; E78.1 Pure hyperglyceridemia | CPT/HCPCS: 96127; 99212 ==

== ENCOUNTER 2025-02-27 07:42 | Outpatient (REF) | payer OTHER, SELFPAY ==
--- OUTSIDE RECORDS SUMMARY | 2025-02-27 07:44 | XMS_ITS | Encounter Summary ---
Author Organization [facility] Address [address] [place] [address] [place] [phone] Phone Care Team Providers Care Record Center Coordinator Name Role Phone Dayton Gould Primary Care Provider + Encounter Details Date Type Department Care Team (Late st Contact Info) Description 09/12/2023 Procedure Pass [facility] [place] [place] [address] Social History Tobacco Use Types Packs/Day Years [...] 9:00 AM EDT Office Visit Kyle [facility] [address] [place] [address] [place] [address] Bernice Jacome [address], [address] [place] [address] [email or web address] documented as of this encounter Visit Diagnoses Not on filedocumented in this encounter Additional Health Concerns Infection Onset Date Last Indicated Resolved Time CoV-Risk Comment:Per note documentation 06/07/2024 06/07/2024 7:18 AM EST CoV-Risk Comment:Per note documentation 08/04/2024 08/04/2024 9:21 AM EST CDiff-Risk 08/04/2024 08/05/2024 08/05/2024 2:09 AM EST documented as of this encounter Care Teams Record Center Coordinator Relationship Specialty Start Date End Date Dayton Gould PA [address] [place] [address] PCP - General 10/05/20 documented as of this encounter Additional Source Comments The information contained in this document represents components of the legal health record. It is not the complete legal health record.[facility]
--- OUTSIDE RECORDS SUMMARY | 2025-02-27 07:44 | XMS_ITS | Encounter Summary ---
Author Organization [facility] Address [address] [facility] [address] [place] [address] Phone Care Team Providers Care Goldsmith Apprentice Name Role Phone Dayton Gould Primary Care Provider + Encounter Details Date Type Department Care Team (Late st Contact Info) Description 06/16/2023 Procedure Pass [facility], Ct Scan - [address] [address] Social History Tobacco Use Types Packs/Day Years [...] 06/16/2023 6:47 PM Leandro Mukherjee RN * [place] Suicide Severity Rating Scale (Screener/Recent Self-Report) Question [...] 09/20/2026 9:00 AM EDT Office Visit [facility] [address] [place] [address] Bernice Jacome [address] [place] [address], [address] [place] [address] [email or web address] [...] documented as of this encounter Care Teams Goldsmith Apprentice Relationship Specialty Start Date End Date Dayton Gould PA [facility] [place] [address] PCP - General 10/05/20 documented as of this encounter Additional Source Comments The information contained in this document represents components of the legal health record. It is not the complete legal health record.[facility]
--- OUTSIDE RECORDS SUMMARY | 2025-02-27 07:44 | XMS_ITS | Patient Health Record ---
Author Organization [facility] Address [address] [place] [address] Care Team Providers Care Broke Beater Operator Name Role Phone Dayton Gould Primary Care Provider Unavailab Pilo Johnson Jr Unavailable [phone] Allergies No Known Allergies Reason For Referral [...] Problem Status W/U Status Risk Notes Problem 686018803 Ileostomy status (Z93.2) Active confirmed Problem 75670656 Ulcerative colit is without complications, unspecified location (K51.90) Active confirmed Problem Hypertriglyceridemia (296798344) Hypertriglyceridemia (E78.1) Active confirmed Problem Pancreatitis (49609720) Pancreatitis (K85.90) Active confirmed Problem 281914185 Acute pancreatit is without infection or necrosis, unspecified pancreatitis type (K85.90) Active confirmed Problem 20342935 Ulcerative colit is, unspecified (K51.90) Active confirmed Plan Of Treatment Pending Test Test Name Order Date LIVER PROFILE 05/31/2022 Triglycerides 05/31/2022 Lipase 05/31/2022 Insurance Providers Payer Name Payer Address Payer Phone Subscriber Number Group Number Insured Name Patient Relationship to Insured Coverage Start Date Coverage End Date [facility] Plan [address] [address] [place], [place] [id number] [phone] [id number] KAMARI DELEON Self - patient is the [...]
--- OUTSIDE RECORDS SUMMARY | 2025-02-27 07:45 | XMS_ITS | Encounter Summary ---
Author Organization [facility] Address [address] [facility] [address] [place] [address] Phone Care Team Providers Care Certified Coder Name Role Phone Dayton Gould Primary Care Provider + Encounter Details Date Type Department Care Team (Late st Contact Info) Description 12/15/2021 Procedure Pass [facility] Admitting Dept Virtual Department [address] [place] [address] Social History Tobacco Use Types Packs/Day Years [...] EDT Office Visit [facility] Medicine [address] [place] [address] Bernice Jacome [address] [place] [address], [address] [place] [address] [email or web address] documented as of this encounter [...] documented as of this encounter Care Teams Certified Coder Relationship Specialty Start Date End Date Dayton Gould PA [address] [place] [address] PCP - General 10/05/20 documented as of this encounter Additional Source Comments The information contained in this document represents components of the legal health record. It is not the complete legal health record.[facility]
--- OUTSIDE RECORDS SUMMARY | 2025-02-27 07:45 | XMS_ITS | Encounter Summary ---
Author Organization [facility] Address [address] [facility] [address] [place] [address] Phone Care Team Providers Care Cyber Defense Forensics Analyst Name Role Phone Dayton Gould Primary Care Provider + Encounter Details Date Type Department Care Team (Late st Contact Info) Description 02/20/2025 Procedure Pass [facility], Ct Scan - [facility] [address] [place] [address] Social History Tobacco Use Types Packs/Day Years [...] EDT Office Visit [facility] [address] [place] [address] [place] [address] Bernice Jacome [address] [place] [address], [address] [place] [address] [email or web address] documented as of this encounter Visit Diagnoses Not on filedocumented in this encounter Care Teams Cyber Defense Forensics Analyst Relationship Specialty Start Date End Date Dayton Gould PA [address] [place] [address] PCP - General 10/05/20 documented as of this encounter Additional Source Comments The information contained in this document represents components of the legal health record. It is not the complete legal health record.[facility]
--- OUTSIDE RECORDS SUMMARY | 2025-02-27 07:45 | XMS_ITS | Encounter Summary ---
Author Organization [facility] Address [address] [place] [address] Phone Care Team Providers Care Client Support Representative Name Role Phone Dayton Gould Primary Care Provider + Encounter Details Date Type Department Care Team (Late st Contact Info) Description 06/09/2024 Procedure Pass [facility], Ct Scan - [facility] 30 [place] [address] Social History Tobacco Use Types Packs/Day Years [...] 09/20/2026 9:00 AM EDT Office Visit [facility] [address] [place] [address] Bernice Jacome [address] [place] [address], [address] [place] [address] [email or web address] documented as of this encounter Visit Diagnoses Not on filedocumented in this encounter Additional Health Concerns Infection Onset Date Last Indicated Resolved Time CoV-Risk Comment:Per note documentation 08/04/2024 08/04/2024 9:21 AM EST CDiff-Risk 08/04/2024 08/05/2024 08/05/2024 2:09 AM EST documented as of this encounter Care Teams Client Support Representative Relationship Specialty Start Date End Date Dayton Gould PA [facility] [place] [address] PCP - General 10/05/20 documented as of this encounter Additional Source Comments The information contained in this document represents components of the legal health record. It is not the complete legal health record.[facility]
--- OUTSIDE RECORDS SUMMARY | 2025-02-27 07:45 | XMS_ITS | Encounter Summary ---
Author Organization [facility] Address [address] [employer] [facility] [address] [place] [address] Phone Care Team Providers Care Poultry Sexer Name Role Phone Dayton Gould Primary Care Provider + Encounter Details Date Type Department Care Team (Late st Contact Info) Description 07/29/2022 Procedure Pass [facility], Ct Scan - [address] [address] Social History Tobacco Use Types Packs/Day Years [...] 07/29/2022 3:45 PM Leola Flynn RN * [place] Suicide Severity Rating Scale (Screener/Recent Self-Report) Question [...] Description 09/20/2026 9:00 AM EDT Office Visit [facility] [address] [place] [address] Bernice Jacome [address] [facility], [address] [place] [address] [email or web address] documented as of this [...] documented as of this encounter Care Teams Poultry Sexer Relationship Specialty Start Date End Date Dayton Gould PA [address] [place] [address] PCP - General 10/05/20 documented as of this encounter Additional Source Comments The information contained in this document represents components of the legal health record. It is not the complete legal health record.[facility]
--- OUTSIDE RECORDS SUMMARY | 2025-02-27 07:45 | XMS_ITS | Encounter Summary ---
Author Organization [facility] Address [address] [facility] [address] [place] [address] Phone Care Team Providers Care Safety And Security Officer Name Role Phone Dayton Gould Primary Care Provider + Encounter Details Date Type Department Care Team (Late st Contact Info) Description 08/24/2024 Procedure Pass [facility], Ct Scan - [facility] 30 [place] [address] Social History Tobacco Use Types Packs/Day Years [...] EDT Office Visit [facility] [address] [place] [address] [place] [address] Bernice Jacome [address] [place] [address], [address] [place] [address] [email or web address] documented as of this encounter Visit Diagnoses Not on filedocumented in this encounter Care Teams Safety And Security Officer Relationship Specialty Start Date End Date Dayton Gould PA [address] [place] [address] PCP - General 10/05/20 documented as of this encounter Additional Source Comments The information contained in this document represents components of the legal health record. It is not the complete legal health record.[facility]
--- OUTSIDE RECORDS SUMMARY | 2025-02-27 07:45 | XMS_ITS | Encounter Summary ---
Author Organization [facility] Address [address] [place] [address] Phone Care Team Providers Care Teller Name Role Phone Dayton Gould Primary Care Provider + Encounter Details Date Type Department Care Team (Late st Contact Info) Description 06/07/2024 Procedure Pass [facility], Ct Scan - [facility] 30 [place] [address] Social History Tobacco Use Types Packs/Day Years [...] 06/08/2024 3:07 AM Tino Cooper RN * [place] Suicide Severity Rating Scale (Screener/Recent Self-Report) Question [...] 9:00 AM EDT Office Visit [facility] [address] [place] [address] Bernice Jacome [address] [place] [address], [address] [place] [address] [email or web address] documented as of this encounter Visit Diagnoses Not on filedocumented in this encounter Additional Health Concerns Infection Onset Date Last Indicated Resolved Time CoV-Risk Comment:Per note documentation 06/07/2024 06/07/2024 4 7:18 AM EST CoV-Risk Comment:Per note documentation 08/04/2024 08/04/2024 5 9:21 AM EST CDiff-Risk 08/04/2024 08/05/2024 08/05/2024 2:09 AM EST documented as of this encounter Care Teams Teller Relationship Specialty Start Date End Date Dayton Gould PA [address] [place] [address] PCP - General 10/05/20 documented as of this encounter Additional Source Comments The information contained in this document represents components of the legal health record. It is not the complete legal health record.[facility]
--- OUTSIDE RECORDS SUMMARY | 2025-02-27 07:45 | XMS_ITS | Clinical Summary ---
Author Organization [facility] Address [address] [facility] [address] [place] [address] Phone Care Team Providers Care Head Of Academic Technology Name Role Phone Dayton Gould Primary Care [...] increase D5 NS infusion. Continue to monitor [id number] blood sugars with goals of eventually initiating [...] related pancreatitis and the last admitted to [facility] in September 2020 when triglyceride levels were greater than 4000 after stopping medication Was recently admitted to [facility] for recurrent pancreatitis. Was treated supportively and discharged home. He presented back to [facility] with recurrent abdominal pain, bloating, vomiting and [...] low-fat diet today Regular GI is in [place] [facility] Bright Follow over the day and [...] 5:53 AM EDT Emergency [facility] [address] [place] [address] Samir Dee, DO Discharge Disposition: Home or Self Care 02/20/2025 Procedure Pass [facility], Ct Scan - [facility] [address] [place] [address] 11/30/2024 10:04 PM EDT - 11/30/2024 10:55 PM EDT Emergency [facility] [address] [place] [address] Discharge Disposition: Home or Self Care from Last 3 Months Immunizations Immunization Administration [...] EDT Office Visit [facility] [address] [place] [address] Bernice Jacome [address], [address] [place] [address] [email or web address] Health Maintenance Due Date Last Done [...] HS Gen5 <6 0 - 14 ng/L [facility] Blood 02/19/2025 11:0 2 PM EDT 02/19/2025 11:12 PM EDT us Elias Gotti MD LAB BLOOD ORDERAB LES Final Result [facility] [address] [place] [address] * LFTs (hepatic panel) (02/19/2025 9:58 PM EDT) ALKALINE PHOSPHATASE 101 39 - 117 U/L [facility] TOTAL BILIRUBIN <0.2 0.0 - 1.2 mg/dL [facility] DIRECT BILIRUBIN 0.1 0.0 - 0.2 mg/dL [facility] Bilirubin (Indirect) NOT CALCULATED 0 - 1.5 mg/dL [facility] AST 20 0 - 37 U/L [facility] ALT 20 0 - 40 U/L [facility] TOTAL PROTEIN 7.6 6.5 - 8.0 g/dL [facility] ALBUMIN 4.3 3.9 - 4.8 g/dL [facility] GLOBULIN 3.3 1 - 4.8 g/dL [facility] A/G Ratio 1.30 1.00 - 4.80 RATIO [facility] 02/19/2025 9:58 PM EDT 02/19/2025 10:08 PM EDT us Elias Gotti MD LAB BLOOD ORDERAB LES Final Result [facility] [address] [place] [address] * (ABNORMAL) CBC and differential (02/19/2025 9:58 PM EDT) Pathologist [facility] WBC 8.74 4.00 - 11.00 K/uL [facility] RBC 5.13 4.50 - 5.90 M/uL [facility] HGB 13.8 13.5 - 17.5 g/dL [facility] HCT 39.1(L) 41.0 - 53.0 % [facility] PLT 315 150 - 450 K/uL [facility] MCV 76.2(L) 80.0 - 100.0 fL [facility] MCH 26.9(L) 27.0 - 31.0 pg [facility] MCHC 35.3 32.0 - 36.0 g/dL [facility] RDW 12.5 11.5 - 14.5 % [facility] MPV 9.2 8.4 - 12.0 fL [facility] NRBC 0.00 0.00 /100 WBCs [facility] ABSOLUTE NRBC 0.00 0.00 K/uL [facility] DIFF METHOD Auto [facility] NEUTS 39.2(L) 48.0 - 76.0 % [facility] LYMPHS 47.7(H) 18.0 - 41.0 % [facility] MONOS 7.0 4.0 - 11.0 % [facility] EOS 5.4(H) 0.0 - 5.0 % [facility] BASOS 0.5 0.0 - 1.5 % [facility] Granulocytes, immature (%) 0.2 0.0 - 0.9 % [facility] ABSOLUTE NEUTS 3.43 1.92 - 7.60 K/uL [facility] ABSOLUTE LYMPHS 4.17(H) 0.72 - 4.10 K/uL [facility] ABSOLUTE MONOS 0.61 0.16 - 1.10 K/uL [facility] ABSOLUTE EOS 0.47 0.00 - 0.50 K/uL [facility] ABSOLUTE BASOS 0.04 0.00 - 0.15 K/uL [facility] Granulocytes, immature 0.02 0.00 - 0.09 K/uL [facility] Blood 02/19/2025 9:58 PM EDT 02/19/2025 10:08 PM EDT us Elias Gotti MD LAB BLOOD ORDERAB LES Final Result [address] [address] * Lipase (02/19/2025 9:58 PM EDT) LIPASE 58 16 - 63 U/L [facility] 02/19/2025 9:58 PM EDT 02/19/2025 10:08 PM EDT us Elias Gotti MD LAB BLOOD ORDERAB LES Final Result [address] [address] * (ABNORMAL) Basic metabolic panel (02/19/2025 9:58 PM EDT) SODIUM 136 133 - 146 mmol/L [facility] CHLORIDE 99 96 - 108 mmol/L [facility] POTASSIUM 3.5 3.3 - 5.1 mmol/L [facility] Comment:Specimen slightly he molyzed, result may be falsely elevated. CO2 21 21 - 35 mmol/L [facility] BUN 16 6 - 19 mg/dL [facility] CREATININE 0.80 0.5 - 1.5 mg/dL [facility] GLUCOSE 109(H) 70 - 99 mg/dL [facility] CALCIUM 9.3 8.4 - 10.3 mg/dL [facility] EGFR 112 >59 mL/min/1.7 3m2 [facility] Comment:Estimated glomerular filtration rate calculated using the CKD-EPI refit equation. ANION GAP 20 10 - 20 mmol/L [facility] Blood 02/19/2025 9:58 PM EDT 02/19/2025 10:08 PM EDT us Elias Gotti MD LAB BLOOD ORDERAB LES Final Result [address] [address] * ECG 12-LEAD (02/19/2025 9:27 PM EDT) Only the most recent of2 resultswithin the time period is included. Ventricular Rate EKG/MIN 85 BPM [facility] Atrial Rate 85 BPM [facility] LA Interval 144 ms [facility] QRS Duration 82 ms [facility] QT Interval 382 ms [facility] QTC Interval 454 ms [facility] P Mason 56 degrees [facility] R Wave Mason 23 degrees [facility] T Wave Mason 11 degrees [facility] 02/19/2025 9:27 PM EDT [...] (02/29/2024 5:05 PM EDT) HDL 21 mg/dL [facility] Comment: Interpretation <40 mg/dL: Low HDL cholesterol (major risk factor for CHD) Greater than or equal to 60 mg/dL: High HDL cholesterol ( negative risk factor for CHD) HDL - cholesterol is affected by a number of factors, e.g. smoking, excerise, hormones, sex and age. CHOLESTEROL 764(H) 0 - 240 mg/dL [facility] TRIGLYCERIDES 3,858(H) 30 - 160 mg/dL [facility] LDL NOT CALCULATED 50 - 129 mg/dL [facility] Comment: Unable to calculate due to elevated TRIG of greater than 400. A measured LDL will be performed. CARDIAC RISK RATIO 36.4(H) 3.4 - 5.0 [facility] Blood 02/29/2024 5:05 PM EDT 02/29/2024 5:07 PM EDT us Alexander Foster PA-C LAB BLOOD ORDERABLES Final Re sult Performing Organization Address City/[facility]/ZIP Co de Phone Number [facility] [address] [place], [place] [phone] from Last 3 Months or Most Recently Relevant to Health Maintenance Insurance [facility] [address] [address] [id number] [facility] [address] [address] [place] [id number] [facility] [address] [place] [id number] [facility] Advance Directives For more information, please contact: [phone] (9AM - 5PM [facility], Sunday-Sunday) Documents on File Type Date Recorded Patient Sewer And Drain Technician Expl anation Healthcare Proxy 03/11/2024 4:11 PM [...] Discussion Comments: presumed on basis of a Care Teams Head Of Academic Technology Relationship Specialty Start Date End Date Dayton Gould PA [address] [place] [address] PCP - General 10/05/20 Additional Source Comments The information contained in this document represents components of the legal health record. It is not the complete legal health record.[facility]
--- OUTSIDE RECORDS SUMMARY | 2025-02-27 07:45 | XMS_ITS | Encounter Summary ---
Author Organization [facility] Address [address] [facility] [address] [place] [phone] Phone Care Team Providers Care Pricing Actuary Name Role Phone Dayton Gould Primary Care Provider + Encounter Details Date Type Department Care Team (Late st Contact Info) Description 12/14/2021 Procedure Pass [facility], [address] [address] Social History Tobacco Use Types Packs/Day Years [...] Description 09/20/2026 9:00 AM EDT Office Visit [address] [address] Bernice Jacome [address] [place] [address], [address] [place] [address] [email or web address] documented as of this [...] documented as of this encounter Care Teams Pricing Actuary Relationship Specialty Start Date End Date Dayton Gould PA [address] [place] [address] PCP - General 10/05/20 documented as of this encounter Additional Source Comments The information contained in this document represents components of the legal health record. It is not the complete legal health record.[facility]
--- OUTSIDE RECORDS SUMMARY | 2025-02-27 07:45 | XMS_ITS | Encounter Summary ---
Author Organization [facility] Address [address] [facility] [address] [place] [address] Phone Care Team Providers Care Grinder Set Up Operator Surface Name Role Phone Dayton Gould Primary Care Provider + Encounter Details Date Type Department Care Team (Late st Contact Info) Description 12/11/2021 Procedure Pass [facility], Ct Scan - [address] [address] Social History Tobacco Use Types Packs/Day Years [...] 5:39 AM EDT Yoli Higginbotham RN * [place] Suicide Severity Rating Scale (Screener/Recent Self-Report) Question [...] 09/20/2026 9:00 AM EDT Office Visit [facility] [address] [place] [address] Bernice Jacome [address] [facility], [address] [place] [address] [email or web address] documented as of this encounter Visit [...] documented as of this encounter Care Teams Grinder Set Up Operator Surface Relationship Specialty Start Date End Date Dayton Gould PA [address] [place] [address] PCP - General 10/05/20 documented as of this encounter Additional Source Comments The information contained in this document represents components of the legal health record. It is not the complete legal health record.[facility]
--- OUTSIDE RECORDS SUMMARY | 2025-02-27 07:45 | XMS_ITS | Clinical Summary ---
Author Organization [facility] Address [address] [place] [address] Care Team Providers Care Process Pumper Name Role Phone Unavailable Primary Care Provider [...]
[2025-02-27 12:02] LABS: Hematocrit 37.2 % (42.0-52.0); Hemoglobin 13.0 g/dl (14.0-18.0); Mean Corpuscular HGB Conc 34.9 g/dl (31.0-36.0); Mean Corpuscular Hemoglobin 26.9 pg (27.0-33.0); Mean Corpuscular Volume 76.9 fL (80.0-98.0); NRBC Abs Auto 0.000 X10*3/uL (0.0-0.012); NRBC Pct Auto 0.0 /100WBC (0.0-0.2); Platelet Count 339 X10*3/uL (160-400); Red Blood Count 4.84 X10*6/uL (4.60-5.80); White Blood Count 8.1 X10*3/uL (4.8-10.8)
[2025-02-27 13:28] LABS: Alanine Aminotransferase 23 U/L (0-40); Albumin Level 4.3 g/dL (3.5-5.0); Alkaline Phosphatase 96 U/L (39-117); Anion Gap 14 (12-20); Aspartate Amino Transferase 45 U/L (5-37); Blood Urea Nitrogen 11 mg/dL (9-16); Calcium 9.0 mg/dL (8.4-10.2); Carbon Dioxide 21 mmol/L (22-29); Chloride 108 mmol/L (96-108); Cholesterol 270 mg/dL (<200); Estimated Glomerular Filt Rate > 60; HDL Cholesterol 31 mg/dL (>40); Iron 62 mcg/dL (45-160); Percent Iron Saturation 17 % (15-50); Potassium 3.9 mmol/L (3.3-5.1); Sodium 139 mmol/L (135-145); Total Iron Binding Capacity 359 mcg/dL (228-428); Total Protein 7.4 g/dL (6.5-8.0); Triglycerides 1340 mg/dL (<150); Unsaturated Iron Binding 297 ug/dL
[2025-02-27 13:36] LABS: Folate 9.6 ng/mL (> or = 4.0); Vitamin B12 158 pg/mL (200-900)
[2025-02-28 06:33] LABS: Lyme Abs Screen <0.90 index
== END 2025-02-27 07:43 | disposition home or self-care (01) ==
LOC: HO.10HDL 07:42
PROVIDERS: Visit Provider Physician Assistant
DX: D50.9 Iron deficiency anemia, unspecified (principal); R53.82 Chronic fatigue, unspecified; E53.8 Deficiency of other specified B group vitamins; E78.1 Pure hyperglyceridemia
CPT/HCPCS: 36415; 80053; 80061; 82306; 82607; 82746; 83540; 84100; 84252; 85027; 86617; 86618

== ENCOUNTER 2025-03-10 14:25 | Outpatient (AMB) | payer OTHER, SELFPAY ==
--- OUTSIDE RECORDS SUMMARY | 2025-03-09 21:25 | XMS_ITS | Encounter Summary ---
Author Organization [facility] Address [address] [facility] [address] [place] [id number] Phone Care Team Providers Care Cathode Washer Name Role Phone [place] Gould Primary Care Provider + Reason for Visit * Reason Comments Abdominal Pain Encounter Details Date Type Department Care Team (Late st Contact Info) Description 03/09/2025 9:25 PM EDT - 03/10/2025 3:17 AM EDT Emergency [facility] [address] [place] [address] Breanne Locke MD [address] [place] [address] [email or web address] Discharge Disposition: Home or Self Care Social [...] got money to buy more. Never True 03/09/2025 Within the past 6 months the food we bought just didn't last and we didn't have enough money to get more. Never True Residential Stability Answer Date Recor ded What is your housing situation today? I have marita stein 03/09/2025 How many times have you move d in the past 12 months? Zero (I did not move) 03/09/2025 Paying for Meds Answer Date Recorded Do you have trouble paying for medicines? No 03/09/2025 Paying Utility Bills Answer Date Record ed Do you have trouble paying your heating or elect ricity bill? No 03/09/2025 Transportation Answer Date Recorded Has the lack of transportati on kept you from medical appointments or from getting medications? No 03/09/2025 Digital Access Answer Date Recorded No 03/09/2025 Yes 03/09/2025 Do you have reliable internet access at home? Ye s 03/09/2025 Do you have a device (e.g., phone, tablet, computer) with a working camera? Yes 03/09/2025 Intimate Partner Violence Answer Date R ecorded Are you denied basic needs s uch as food, clothing, or medical care? No 03/09/2025 In the past 12 months have y ou been in a relationship with a person who hurts, threatens, or tries to control you? No 03/09/2025 Are you denied basic needs s uch as food, clothing, or medical care? No 03/09/2025 In the past 12 months have y ou been in a relationship with a person who hurts, threatens, or tries to control you? No 03/09/2025 Sex and Gender Information Value Date Recorded Sex Assigned at Male 10/05/2020 10:54 AM EDT Legal Sex Male 9:23 AM EDT Gender Identity Male 10/05/2020 10:54 AM EDT Sexual Orientation Straight 01/07/2024 11 :54 PM EDT documented as of this encounter Last Filed Vital Signs Vital Sign Reading Time Taken Comments Blood Pressure 134/89 03/10/2025 2:36 AM EDT Pulse 71 03/10/2025 2:36 AM EDT Temperature 36.6 C (97.8 F) 03/10/2025 2:36 AM EDT Respiratory Rate 16 03/10/2025 2:36 AM EDT Oxygen Saturation 100% 03/10/2025 2:36 AM EDT Inhaled Oxygen Concentration - - Weight 93.4 kg (206 lb) 03/09/2025 6:04 PM EDT Height 180.3 cm (5' 11 ) 03/09/2025 6:04 PM EDT Body Mass Index 28.73 03/09/2025 6:04 PM EDT documented in this encounter Functional Status * Calculated C-SSRS Risk Score (Lifetime/Recent) Answer Date of Assessment Author No Risk Indicated 03/09/2025 6:02 PM EDT Sheila Davidson RN * [place] Suicide Severity Rating Scale (Screener/Recent Self-Report) Question Answer Date of Assessment Author 1. Wish to be (Past 1 Month) No 025 6:02 PM EDT Sheila Dietz, TAI 2. Non-Specific Active Suici william Thoughts (Past 1 Month) No 03/09/2025 6:02 PM EDT Sheila Dietz, TAI 6. Suicidal Behavior (Lifetime) No 6:02 PM EDT Sheila Dietz RN documented as of this encounter Discharge Instructions * Discharge Instructions* Breanne Locke MD - 03/10/2025 2:39 AM EDT You were seen in the emergency department for abdominal pain. Your workup today was overall unrevealing and reassuring and the CAT scan showed that your IVC filter is in normal position and no other findings to explain your symptoms. You were given a dose of Bentyl which is a pain medication that helps with abdominal pain and I have sent a prescription for this to your pharmacy. You can take this up to 4 times a day as needed. Please follow-up with your primary care physician at your scheduled appointment this week and return for any new or worsening symptoms or * Attachments The following attachments cannot be sent through Care Everywhere. * Abdominal Pain ([place]) documented in this encounter Medications at Time of Discharge celecoxib (CELEBREX) 100 MG capsule Take 1 capsule (100 mg total) by mouth 2 (two) times a day. 14 capsule 11/30/2024 dicyclomine (BENTYL) 10 MG capsule Take 1 capsule (10 mg total) by mouth 4 (four) times a day before meals and nightly. 20 capsule 03/10/2025 gemfibroziL (LOPID) 600 MG tablet Take 1 [...] as of this encounter ED Notes * Garrett Cabrales RN - 03/10/2025 3:17 AM EDT ED Discharge Nursing Note Discharge instructions reviewed and questions answered if asked. Patient/family understand criteriato return to ED and has been urged to do so if the circumstances arise. Patient ambulated out of EDwith even steady gait. * Garrett Cabrales RN - 03/10/2025 2:36 AM EDT ED Nursing Progress Note Pt reports no abd pain at this time. Awaiting reeval * Garrett Cabrales RN - 03/10/2025 2:01 AM EDT ED Nursing Progress Note Patient asleep with visible chest rise & fall. Comfort & safety measures in place. Awaitingct results * Garrett Cabrales RN - 03/10/2025 12:09 AM EDT ED Nursing Progress Note Assumed care. Pt endorsing abd pain * Sheila Dietz RN - 03/09/2025 6:02 PM EDT Pt was seen here recently for abd pain. He is not feeling much better. Pain described as mid abd and bloating after eating. Pt reports hx pancreatitis and is concerned maybe that is is his issue now.On arrival, pt is alert and well appearing. * Breanne Locke MD - 03/09/2025 5:38 PM EDT Chief Complaint Chief Complaint Patient presents with Abdominal Pain History of Present Illness The patient, Justino Sheets,is a 44 y.o. male who presents for evaluation of Abdominal Pain The patient reports for evaluation of fatigue and abdominal pain. Patient reports history of Crohn's disease status post colectomy in childhood with ileostomy in place. He also reports history of pancreatitis. He reports some bloating and pain on the left side of his abdomen. He denies any associated nausea or vomiting. He does feel dehydrated and quite fatigued. He denies cough, fevers, nausea or vomiting. He reports his blood pressure was high at home with readings in the 140s over 90s. He jason metoprolol for hypertension. Unless otherwise specified, I have reviewed and [...] 12/15/2021 Performed by Satya Vora MD at [facility] ENDOSCOPY ILE[facility]OMY Home Medications Prior to Admission medications Medication Sig celecoxib (CELEBREX) 100 MG capsule 100 mg, Oral, 2 times daily dicyclomine (BENTYL) 10 MG capsule 10 mg, Oral, 4 times daily before meals and nightly gemfibroziL (LOPID) 600 MG tablet 600 mg, [...] Physical Exam Vital Signs: ED Triage Vitals [03/09/25 1804] Encounter Vitals Group BP 126/84 Systolic BP Percentile Diastolic BP Percentile Heart Rate 80 Respiratory Rate 16 Temperature 36.3 ??C (97.3 ??F) Temp Source Temporal SpO2 99 % Weight 206 lb Height 5' 11 Head Circumference Peak Flow Pain Score Pain Loc Pain Education Exclude from Growth Chart Physical Exam Vitals and nursing note reviewed. Constitutional: General: He is not in acute distress. HENT: Head: Normocephalic and atraumatic. Mouth/Throat: Mouth: Mucous membranes are dry. Eyes: Conjunctiva/sclera: Conjunctivae normal. Cardiovascular: Rate and Rhythm: Normal rate and regular rhythm. Pulmonary: Effort: Pulmonary effort is normal. No respiratory distress. Abdominal: Tenderness: There is abdominal tenderness (LLQ). There is no right CVA tenderness, left CVA tenderness, guarding or rebound. Comments: Ileostomy in place is pink with stool and air in the bag, nontender Musculoskeletal: General: No deformity or signs of injury. Cervical back: Normal range of motion. Skin: General: Skin is warm and dry. Neurological: General: No focal deficit present. Mental Status: He is alert and oriented to person, place, and time. Psychiatric: Mood and Affect: Mood normal. Behavior: Behavior normal. Laboratory Testing Results for orders placed or performed during the hospital encounter of 03/09/25 TSH with reflex Result Value Ref Range TSH 0.70 0.27 - 4.20 uIU/mL C-Reactive Protein Result Value Ref Range C REACTIVE PROTEIN <3.0 0.0 - 4.0 mg/L COVID Pandemic Respiratory Viral Order (PRO) Specimen: Nasopharyngeal swab; Other Result Value Ref Range Test Ordered Rapid COVID has been ordered Specimen Source/Description NASAL SARS-CoV 2 (COVID-19) PCR Not Detected Not Detected Lipase Specimen: Blood Result Value Ref Range LIPASE 52 16 - 63 U/L LFTs (hepatic panel) Specimen: Blood Result Value Ref Range ALKALINE PHOSPHATASE 101 39 - 117 U/L TOTAL BILIRUBIN 0.4 0.0 - 1.2 mg/dL DIRECT BILIRUBIN <0.1 0.0 - 0.2 mg/dL Bilirubin (Indirect) NOT CALCULATED 0 - 1.5 mg/dL AST 20 0 - 37 U/L ALT 16 0 - 40 U/L TOTAL PROTEIN 7.6 6.5 - 8.0 g/dL ALBUMIN 4.4 3.9 - 4.8 g/dL GLOBULIN 3.2 1 - 4.8 g/dL A/G Ratio 1.38 1.00 - 4.80 RATIO Urinalysis w/reflex Urine Culture Specimen: Urine Result Value Ref Range COLOR Yellow Yellow CLARITY Clear GLUCOSE Negative Negative BILI Negative Negative KETONES Negative Negative SPECIFIC GRAVITY >1.030 1.005 - 1.030 BLOOD Negative Negative PH 6.0 5.0 - 8.0 Protein-UA Negative Negative NITRITE Negative Negative Leukocyte esterase, ur Negative Negative Basic metabolic panel Specimen: Blood Result Value Ref Range SODIUM 136 133 - 146 mmol/L CHLORIDE 104 96 - 108 mmol/L POTASSIUM 4.1 3.3 - 5.1 mmol/L CO2 21 21 - 35 mmol/L BUN 11 6 - 19 mg/dL CREATININE 0.80 0.5 - 1.5 mg/dL GLUCOSE 116 (H) 70 - 99 mg/dL CALCIUM 9.4 8.4 - 10.3 mg/dL EGFR 112 >59 mL/min/1.73m2 ANION GAP 15 10 - 20 mmol/L CBC and differential Specimen: Blood Result Value Ref Range WBC 9.01 4.00 - 11.00 K/uL RBC 5.37 4.50 - 5.90 M/uL HGB 14.1 13.5 - 17.5 g/dL HCT 42.1 41.0 - 53.0 % PLT 302 150 - 450 K/uL MCV 78.4 (L) 80.0 - 100.0 fL MCH 26.3 (L) 27.0 - 31.0 pg MCHC 33.5 32.0 - 36.0 g/dL RDW 13.3 11.5 - 14.5 % MPV 9.7 8.4 - 12.0 fL NRBC 0.00 0.00 /100 WBCs ABSOLUTE NRBC 0.00 0.00 K/uL DIFF METHOD Auto NEUTS 46.5 (L) 48.0 - 76.0 % LYMPHS 36.3 18.0 - 41.0 % MONOS 13.3 (H) 4.0 - 11.0 % EOS 3.0 0.0 - 5.0 % BASOS 0.3 0.0 - 1.5 % Granulocytes, immature (%) 0.6 0.0 - 0.9 % ABSOLUTE NEUTS 4.19 1.92 - 7.60 K/uL ABSOLUTE LYMPHS 3.27 0.72 - 4.10 K/uL ABSOLUTE MONOS 1.20 (H) 0.16 - 1.10 K/uL ABSOLUTE EOS 0.27 0.00 - 0.50 K/uL ABSOLUTE BASOS 0.03 0.00 - 0.15 K/uL Granulocytes, immature 0.05 0.00 - 0.09 K/uL Heterophile antibody (monospot) Specimen: Blood Result Value Ref Range Heterophile Ab NON-REACTIVE NON-REACTIVE Radiology Testing CT Abdomen/Pelvis Final Result 1. No acute abnormality in the abdomen or pelvis. 2. Mild diffuse hepatic steatosis. 3. Additional chronic and/or incidental findings as above. Medication from 03/09/2025 1737 to 03/10/2025 0329 Date/Time Order Dose Route Action Action by Comments 03/09/2025 2233 EDT lactated ringers IV Bolus 1,000 mL 1,000 mL Intravenous New Bag Oliva Gleason RN -- 03/09/2025 2338 EDT lactated ringers IV Bolus 1,000 mL 0 mL Intravenous Stopped Oliva Gleason RN -- 03/09/2025 2233 EDT famotidine (PF) (PEPCID) injection 40 mg 40 mg Intravenous Given Oliva Gleason RN -- 03/10/2025 0017 EDT morphine injection 4 mg 4 mg Intravenous Given Garrett Cabrales RN -- 03/10/2025 0027 EDT iohexoL (OMNIPAQUE-350) 350 mg iodine/mL solution 100 mL 100 mL Intravenous Given Caro Mirza -- 03/10/2025 0251 EDT dicyclomine (BENTYL) capsule 10 mg 10 mg Oral Given Garrett Cabrales RN -- [facility] Assessment and Plan: patient presents with persistent left-sided abdominal pain. Arrives afebrile with stable vitals, Slight left upper quadrant tenderness without peritoneal signs on exam. Labs overall reassuring, CT scan without clear cause for patient's symptoms. Pain improved in the emergency department, will prescribe course of Bentyl, patient already with PCP follow-up scheduled for later this afternoon. Encouraged to keep appointment. Strict return precautions discussed and patient expressed understanding and agreement. Stable for discharge. Category 1: Tests, Studies or Independent Historians: Independent Historian: Independent history was obtained by other source. Youth Minister at bedside. Category 2 and 3: Independent Interpretation of Tests, Consideration of Tests, or External Discussion of Results: Labs: Laboratory studies were interpreted. Risks of Complications, Morbidity, or Mortality: Risks: Necessity for prescription medication was discussed. Parenteral controlled substance was administered. Bentyl prescription, IV morphine given for pain control ED prior to CT. Clinical Impressions as of 03/10/25 0329 Left upper quadrant abdominal pain Critical Care Time: 0 minutes Clinical Impression Diagnosis Description Comment Final diagnosis Left upper quadrant abdominal pain Left upper quadrant abdominal pain -- Disposition: Home Breanne Locke MD 03/10/25 0330 documented in this encounter Plan of Treatment Upcoming Encounters Date Type Department Care Team (Late st Contact Info) Description 09/20/2026 9:00 AM EDT Office Visit [facility] [address] [place] [address] [place] [address] Bernice Jacome [address] [place] [address], [address] [place] [address] [email or web address] Scheduled Orders Name Type Priority Associated Diagnoses Orde r Schedule Lab Add On: CRP, TSH with reflex Lab STAT Once for 1 Occur rences starting 03/09/2025 until 03/09/2025 documented as of this encounter Procedures Procedure Name Priority Date/Time Associated Diagnosis Comments CT ABDOMEN/PELVIS WITH CONTRAST Routine 03/10/2025 12:31 AM EDT HETEROPHILE ANTIBODY (MONOSPOT) STAT 03/09/2025 10:35 PM EDT COVID PANDEMIC RESPIRATORY VIRAL ORDER (PRO) STAT 03/09/2025 10:23 PM EDT URINALYSIS W/REFLEX URINE CULTURE STAT 03/09/2025 9:32 PM EDT TSH WITH REFLEX Routine 03/09/2025 6:44 PM EDT LFTS (HEPATIC PANEL) STAT 03/09/2025 6:44 PM EDT CBC AND DIFFERENTIAL STAT 03/09/2025 6:44 PM EDT C-REACTIVE PROTEIN Routine 03/09/2025 6: 44 PM EDT LIPASE STAT 03/09/2025 6:44 PM EDT BASIC METABOLIC PANEL STAT 03/09/2025 6:44 PM EDT documented in this encounter Results * CT ABDOMEN/PELVIS WITH CONTRAST (03/10/2025 12:31 AM EDT) Anatomical Region Laterality Modality Abdomen, Pelvis Computed Tomogra phy 03/10/2025 1:58 AM EDT Impressions 03/10/2025 2:08 AM EDT 1. No acute abnormality in the abdomen or pelvis. 2. Mild diffuse hepatic steatosis. 3. Additional chronic and/or incidental findings as above. Narrative 03/10/2025 2:[address] ABDOMEN/PELVIS WITH CONTRAST Referring clinician's provided indication for this examination in Epic: * Abdominal abscess/infection suspected TECHNIQUE: Multidetector-row CT of the abdomen and pelvis was performed after administration of intravenous contrast using tailored dose modulation techniques. Images were reconstructed in the axial, coronal, and sagittal planes. COMPARISON: CT ABDOMEN/PELVIS WITH CONTRAST ; MRI CHOLANGIOPANCREATOGRAPHY (MRCP) WITHOUT CONTRAST FINDINGS: Lower Chest: No consolidation or pleural effusions. Liver: Mild diffuse hypoattenuation of the hepatic parenchyma consistent with steatosis. Unchanged 1.9 x 0.5 cm elongated hypodensity along the posterior right hepatic lobe capsule, nonspecific but likely benign. Biliary: No calcified gallstones or pericholecystic inflammation. No biliary ductal dilatation. Spleen: No splenomegaly. Similar subcentimeter hypodensity, too small to characterize but likely benign. Pancreas: No peripancreatic fat stranding or ductal dilatation. Adrenal Glands: No nodules. Kidneys/Ureters: No solid masses, stones, or hydronephrosis. Similar small right renal cysts. Bowel: Proctocolectomy with right lower quadrant end ileostomy. Similar patulous small bowel anastomosis in the right upper quadrant. No bowel dilatation or wall thickening. Peritoneum/Retroperitoneum: No masses, pneumoperitoneum, or fluid. Lymph Nodes: No lymphadenopathy. Pelvic Organs/Bladder: No mass. Vessels: No abdominal aortic aneurysm. Infrarenal IVC filter. Bones/Soft Tissues: Postoperative changes of the anterior abdominal wall. Degenerative changes. No aggressive appearing osseous lesions. Procedure Note Ruben Wesley MD - 03/10/2025 CT ABDOMEN/PELVIS WITH CONTRAST Referring clinician's provided indication for this examination in Epic: *Abdominal abscess/infection suspected TECHNIQUE: Multidetector-row CT of the abdomen and pelvis was performedafter administration of intravenous contrast using tailored dosemodulation techniques. Images were reconstructed in the axial, coronal,and sagittal planes. COMPARISON: CT ABDOMEN/PELVIS WITH CONTRAST ; MRICHOLANGIOPANCREATOGRAPHY (MRCP) WITHOUT CONTRAST FINDINGS: Lower Chest: No consolidation or pleural effusions. Liver: Mild diffuse hypoattenuation of the hepatic parenchyma consistentwith steatosis. Unchanged 1.9 x 0.5 cm elongated hypodensity along theposterior right hepatic lobe capsule, nonspecific but likely benign. Biliary: No calcified gallstones or pericholecystic inflammation. Nobiliary ductal dilatation. Spleen: No splenomegaly. Similar subcentimeter hypodensity, too small tocharacterize but likely benign. Pancreas: No peripancreatic fat stranding or ductal dilatation. Adrenal Glands: No nodules. Kidneys/Ureters: No solid masses, stones, or hydronephrosis. Similarsmall right renal cysts. Bowel: Proctocolectomy with right lower quadrant end ileostomy. Similarpatulous small bowel anastomosis in the right upper quadrant. No boweldilatation or wall thickening. Peritoneum/Retroperitoneum: No masses, pneumoperitoneum, or fluid. Lymph Nodes: No lymphadenopathy. Pelvic Organs/Bladder: No mass. Vessels: No abdominal aortic aneurysm. Infrarenal IVC filter. Bones/Soft Tissues: Postoperative changes of the anterior abdominal wall.Degenerative changes. No aggressive appearing osseous lesions. IMPRESSION: 1. No acute abnormality in the abdomen or pelvis. 2. Mild diffuse hepatic steatosis. 3. Additional chronic and/or incidental findings as above. us Breanne Locke MD IMG CT ABD/PELVIS Final Resu lt * Heterophile antibody (monospot) (03/09/2025 10:35 PM EDT) Heterophile Ab NON-REACTI VE NON-REACTI VE [facility] Blood (Blood) 03/09/2025 10: 35 PM EDT 03/09/2025 10:49 PM EDT us Breanne Locke MD NON CULTURE MICROBIOLOGY Fin al Result [address] [address] * COVID Pandemic Respiratory Viral Order (PRO) (03/09/2025 10:23 PM EDT) Test Ordered Rapid COVID has been ordered [facility] Specimen Source/Description NASAL [facility] SARS-CoV 2 (COVID-19) PCR Not Detected Not Detected [facility] Comment: SARS-CoV-2 not detected Negative results do not preclude SARS-CoV-2 infection and should not be used as the sole basis for patient management decisions. Negative results must be combined with clinical observations, patient history, and epidemiological information. Other (Nasopharyngeal swab) 03/09/2025 10:23 PM EDT 03/09/2025 11:13 PM EDT us Breanne Locke MD BODY FLUIDS AND STOOLS ORDER PREETHI Final Result Performing Organization Address [facility] de Phone Number [address] [address] * Urinalysis w/reflex Urine Culture (03/09/2025 9:32 PM EDT) COLOR Yellow Yellow [facility] CLARITY Clear [facility] GLUCOSE Negative Negative [facility] BILI Negative Negative [facility] KETONES Negative Negative [facility] SPECIFIC GRAVITY >1.030 1.005 - 1.030 [facility] BLOOD Negative Negative [facility] PH 6.0 5.0 - 8.0 [facility] Protein-UA Negative Negative [facility] NITRITE Negative Negative [facility] Leukocyte esterase, ur Negative Negative [facility] Urine (Urine) 03/09/2025 9:3 2 PM EDT 03/09/2025 9:54 PM EDT us Carlos Eduardo Cummins MD URINE ORDERABLES Final R esult Performing Organization Address [facility] de Phone Number [address] [address] * TSH with reflex (03/09/2025 6:44 PM EDT) TSH 0.70 0.27 - 4.20 uIU/mL [facility] 03/09/2025 6:44 PM EDT 03/09/2025 7:00 PM EDT Carlos Eduardo Cummins MD LAB BLOOD ORDERABLES Fin al Result Performing Organization Address [facility] de Phone Number [address] [address] * C-Reactive Protein (03/09/2025 6:44 PM EDT) C REACTIVE PROTEIN <3.0 0.0 - 4.0 mg/L [facility] 03/09/2025 6:44 PM EDT 03/09/2025 7:00 PM EDT Carlos Eduardo Cummins MD LAB BLOOD ORDERABLES Fin al Result Performing Organization Address [facility] de Phone Number [address] [address] * Lipase (03/09/2025 6:44 PM EDT) Pathologist [facility] LIPASE 52 16 - 63 U/L [facility] Blood 03/09/2025 6:44 PM EDT 03/09/2025 7:00 PM EDT Carlos Eduardo Cummins MD LAB BLOOD ORDERABLES Fin al Result Performing Organization Address [facility] de Phone Number [address] [address] * LFTs (hepatic panel) (03/09/2025 6:44 PM EDT) Pathologist [facility] ALKALINE PHOSPHATASE 101 39 - 117 U/L [facility] TOTAL BILIRUBIN 0.4 0.0 - 1.2 mg/dL [facility] DIRECT BILIRUBIN <0.1 0.0 - 0.2 mg/dL [facility] Bilirubin (Indirect) NOT CALCULATED 0 - 1.5 mg/dL [facility] AST 20 0 - 37 U/L [facility] ALT 16 0 - 40 U/L [facility] TOTAL PROTEIN 7.6 6.5 - 8.0 g/dL [facility] ALBUMIN 4.4 3.9 - 4.8 g/dL [facility] GLOBULIN 3.2 1 - 4.8 g/dL [facility] A/G Ratio 1.38 1.00 - 4.80 RATIO [facility] Blood 03/09/2025 6:44 PM EDT 03/09/2025 7:00 PM EDT us Carlos Eduardo Cummins MD LAB BLOOD ORDERABLES Fin al Result Performing Organization Address City/[facility]/ZIP Co de Phone Number [address] [address] * (ABNORMAL) Basic metabolic panel (03/09/2025 6:44 PM EDT) SODIUM 136 133 - 146 mmol/L [facility] CHLORIDE 104 96 - 108 mmol/L [facility] POTASSIUM 4.1 3.3 - 5.1 mmol/L [facility] Comment:Specimen slightly he molyzed, result may be falsely elevated. CO2 21 21 - 35 mmol/L [facility] BUN 11 6 - 19 mg/dL [facility] CREATININE 0.80 0.5 - 1.5 mg/dL [facility] GLUCOSE 116(H) 70 - 99 mg/dL [facility] CALCIUM 9.4 8.4 - 10.3 mg/dL [facility] EGFR 112 >59 mL/min/1.7 3m2 [facility] Comment:Estimated glomerular filtration rate calculated using the CKD-EPI refit equation. ANION GAP 15 10 - 20 mmol/L [facility] Blood 03/09/2025 6:44 PM EDT 03/09/2025 7:00 PM EDT us Carlos Eduardo Cummins MD LAB BLOOD ORDERABLES Fin al Result Performing Organization Address City/[facility]/ZIP Co de Phone Number [address] [address] * (ABNORMAL) CBC and differential (03/09/2025 6:44 PM EDT) WBC 9.01 4.00 - 11.00 K/uL [facility] RBC 5.37 4.50 - 5.90 M/uL [facility] HGB 14.1 13.5 - 17.5 g/dL [facility] HCT 42.1 41.0 - 53.0 % [facility] PLT 302 150 - 450 K/uL [facility] MCV 78.4(L) 80.0 - 100.0 fL [facility] MCH 26.3(L) 27.0 - 31.0 pg [facility] MCHC 33.5 32.0 - 36.0 g/dL [facility] RDW 13.3 11.5 - 14.5 % [facility] MPV 9.7 8.4 - 12.0 fL [facility] NRBC 0.00 0.00 /100 WBCs [facility] ABSOLUTE NRBC 0.00 0.00 K/uL [facility] DIFF METHOD Auto [facility] NEUTS 46.5(L) 48.0 - 76.0 % [facility] LYMPHS 36.3 18.0 - 41.0 % [facility] MONOS 13.3(H) 4.0 - 11.0 % [facility] EOS 3.0 0.0 - 5.0 % [facility] BASOS 0.3 0.0 - 1.5 % [facility] Granulocytes, immature (%) 0.6 0.0 - 0.9 % [facility] ABSOLUTE NEUTS 4.19 1.92 - 7.60 K/uL [facility] ABSOLUTE LYMPHS 3.27 0.72 - 4.10 K/uL [facility] ABSOLUTE MONOS 1.20(H) 0.16 - 1.10 K/uL [facility] ABSOLUTE EOS 0.27 0.00 - 0.50 K/uL [facility] ABSOLUTE BASOS 0.03 0.00 - 0.15 K/uL [facility] Granulocytes, immature 0.05 0.00 - 0.09 K/uL [facility] Blood 03/09/2025 6:44 PM EDT 03/09/2025 7:00 PM EDT us Carlos Eduardo Cummins MD LAB BLOOD ORDERABLES Fin al Result [address] [address] documented in this encounter Visit Diagnoses Diagnosis Left upper quadrant abdominal pain- Primary documented in this encounter Administered Medications Inactive Administered Medications - up to 3 most recent administrations Medication Order MAR Action Action Date Dose Rate Site dicyclomine (BENTYL) capsule 10 mg 10 mg, Oral, Once, On Sun03/10/25 at 0245, For 1 dose Given 03/10/2025 2:51 AM EDT 10 mg famotidine (PF) (PEPCID) injection 40 mg 40 mg, Intravenous, Once, On Sun03/09/25 at 2230, For 1 dose, May be given undiluted IV push over 2 minutes. May be given undiluted IV push over 2 minutes. Given 03/09/2025 10:33 PM EDT 40 mg iohexoL (OMNIPAQUE-350) 350 mg iodine/mL solution 100 mL 100 mL, Intravenous, Once as needed, pre procedure/treatment, Starting on Sun03/10/25 at 0020, For 1 dose, Procedural Contrast/Med Active Now, Each mL contains 755 mg of iohexol equivalent to 350 mg of organic iodine. Given 03/10/2025 12:27 AM EDT 100 mL lactated ringers IV Bolus 1,000 mL 1,000 mL, Intravenous, Administer over 30 Minutes, Once, On Sun03/09/25 at 2230, For 1 dose New Bag 03/09/2025 10:33 PM EDT 1,000 mL 2000 mL/hr morphine injection 4 mg 4 mg, Intravenous, Once, On Sun03/10/25 at 0015, For 1 dose Given 03/10/2025 12:17 AM EDT 4 mg sodium chloride (NS) 0.9 % syringe flush 3 mL 3 mL, Intravenous, As needed, line care, Starting on Sun03/09/25 at 1805, Per Institutional IV Line Care Policy. sodium chloride (NS) 0.9 % syringe flush 3 mL 3 mL, Intravenous, As needed, line care, Starting on Sun03/09/25 at 2216, Per Institutional IV Line Care Policy. documented in this encounter Active and Recently Administered Medications Times are shown in EDT. Scheduled Medication Order 03/08/2025 03/09/2025 03/10/2025 dicyclomine (BENTYL) capsule 10 mg (COMPLETED) 10 mg, Oral, Once, On Sun03/10/25 at 0245, For 1 dose 0251 (Given - Provid er: Garrett Cabrales RN) famotidine (PF) (PEPCID) injection 40 mg (COMPLETED) 40 mg, Intravenous, Once, On Sun03/09/25 at 2230, For 1 dose, May be given undiluted IV push over 2 minutes. May be given undiluted IV push over 2 minutes. 2233 (Given - Provider: Oliva Gleason, TAI) lactated ringers IV Bolus 1,000 mL (COMPLETED) 1,000 mL, Intravenous, Administer over 30 Minutes, Once, On Sun03/09/25 at 2230, For 1 dose 2233 (New Bag - Provider: Oliva Gleason RN)2338 (Stopped - Provider: Oliva Gleason RN) morphine injection 4 mg (COMPLETED) 4 mg, Intravenous, Once, On Sun03/10/25 at 0015, For 1 dose 0017 (Given - Provid er: Garrett Cabrales RN) PRN Medication Order 03/08/2025 03/09/2025 03/10/2025 iohexoL (OMNIPAQUE-350) 350 mg iodine/mL solution 100 mL (COMPLETED) 100 mL, Intravenous, Once as needed, pre procedure/treatment, Starting on Sun03/10/25 at 0020, For 1 dose, Procedural Contrast/Med Active Now, Each mL contains 755 mg of iohexol equivalent to 350 mg of organic iodine. 0027 (Given - Provid er: Caro Mirza) sodium chloride (NS) 0.9 % syringe flush 3 mL 3 mL, Intravenous, As needed, line care, Starting on Sun03/09/25 at 1805, Per Institutional IV Line Care Policy. sodium chloride (NS) 0.9 % syringe flush 3 mL 3 mL, Intravenous, As needed, line care, Starting on Sun03/09/25 at 2216, Per Institutional IV Line Care Policy. documented in this encounter Additional Health Concerns Infection Onset Date Last Indicated Resolved Time CoV-Risk 03/09/2025 03/09/2025 documented as of this encounter Care Teams Cathode Washer Relationship Specialty Start Date End Date Dayton Gould PA [address] [place] [id number] PCP - General 10/05/20 documented as of this encounter Additional Source Comments The information contained in this document represents components of the legal health record. It is not the complete legal health record.[facility]
--- NOTE | 2025-03-10 14:32 | A.OFFPC_ITS ---
Vital Signs 03/10/25 14:33 Height 5 ft 11 in Weight 206 lb 4 oz BMI 28.8 BP 132/84 Blood Pressure Location Lt brachial Position Sitting Pulse 84 Pulse Source Pulse Oximeter Pulse Oximetry (%) 98 Oxygen Delivery Method Room Air Intake Visit Reasons: cramps, pancreas pain Radio Station Operator Required: No Accompanied by: Self / Same As Patient Allergies cetirizine (From [facility]) Adverse Reaction (Mild, Verified 03/14/25 00:55) Nightmare lactose Adverse Reaction (Unknown, Verified 03/14/25 00:55) Diarrhea Medication List - Last Reconciled 03/10/25 by Josue Penaloza MD [email or web address] (Premier Colostomy-Ileostomy) As directed gemfibrozil 600 mg PO BID 30 days ibuprofen 800 mg PO Q8H PRN 10 days ipratropium bromide 2 sprays intranasal TID 30 days ketoconazole 2% 1 appl topical DAILY 4 weeks loperamide (Imodium A-D) 2 mg PO Q4H PRN lorazepam 1 mg PO BEDTIME PRN mecobalamin (vitamin B12) 1,000 mcg PO DAILY 90 days metoprolol succinate ER 25 mg PO DAILY niacin ER 500 mg (2 x 250 mg) PO DAILY 90 days omeprazole 40 mg PO DAILY PRN ostomy adhesive (Stomahesive Paste) As directed ostomy supplies (Skin Prep Wipes) As directed prednisone 40 mg (2 x 20 mg) PO DAILY 5 days Tobacco use date assessed: 03/10/25 Dental Screening Dental Screen Date: 03/10/25 Did you have a dental visit in the last 12 months?: Yes Did you have a dental problem in the last 6 months where you did not have access to dental care?: No Was dental information given to patient?: Patient has dentist HPI cramps, pancreas pain HPI Details - The patient is a 44-year-old male pres enting with fatigue and gastrointestinal discomfort. - Reports experiencing increased fatigue , with occasional lightheadedness, and on and off diarrhea. - (+) History of Crohn's disease with mu ltiple surgeries in the past - Hypercholesterolemia managed with Gemf ibrozil and fish oil. He denies any headaches Denies any chest pains, no increased shortness of breath No nausea/vomiting, no abdominal pain - Patient had his follow-up labs done a couple of weeks ago - to discuss his results [facility] Medical History Overweight (BMI 25.0-29.9) Vitamin D deficiency Impaired fasting glucose Mixed hyperlipidemia Vitamin B12 deficiency B12 deficiency Trapezius muscle strain Ileostomy dysfunction CASSIA (generalized anxiety disorder) Sinusitis Presence of ileostomy Annual physical exam Presence of IVC filter Transaminitis Hypertriglyceridemia Inflammatory bowel diseases (IBD) Ulcerative colitis Sleep disorder breathing Infection of lip Lumbar disc herniation with radiculopathy Right knee injury Injury of lumbar spine Infected nasal abrasion Lumbar radiculopathy, chronic HLD (hyperlipidemia) Constipation by delayed colonic transit Allergic rhinitis Obesity Colitis Zinc deficiency Chronic nasal congestion Nasal sinus congestion Obese Low libido GERD without esophagitis H/O deep venous thrombosis H/O acute pancreatitis Hypertriglyceridemia Surgical History History of ileostomy History of colectomy History of ileostomy History of resection of rectum Family History Father CVD (cardiovascular disease) Mother Hypertension Diabetes Maternal Grandmother Liver cancer Maternal Grandfather CVD (cardiovascular disease) Family/Other Diabetes Social History Household Members: Other Household Members Other:: girlfriend and children Housing: House Do you presently have visiting nurse or other home services: No Alcohol intake: never Patient Tobacco Use Status: Former Tobacco user e-Cigarette/Vaping Use: Never Used Second Hand Smoke Exposure: Yes Substance Use Type: Marijuana service: No Current occupational status: employed Current occupation: [employer] Cognitive needs: No Hearing needs: No Vision needs: No Questionnaire PHQ-9 Over the last 2 weeks, how often have you been bothered by any of the following problems? 1. Little interest or pleasure in doing things: nearly every day 2. Feeling down, depressed, or hopeless: nearly every day 3. Trouble falling or staying asleep, or sleeping too much: nearly every day 4. Feeling tired or having little energy: nearly every day 5. Poor appetite or overeating: more than half the days 6. Feeling bad about yourself - or that you are a failure or have let yourself or your family down: not at all 7. Trouble concentrating on things, such as reading the newspaper or watching television: more than half the days 8. Moving or speaking so slowly that other people could have noticed. Or the opposite - being so fidgety or restless that you have been moving around a lot more than usual: not at all 9. Thoughts that you would be better off or of hurting yourself in some way: not at all Total score: 16 Depression Screening Interpretation: Positive Depression Screening Follow-up: Existing condition and Follow-up Visit Requested Depression Screening Done: Yes 40612 - PHQ-9 Billing: Yes Source: Developed by Drs. Augie Acosta, Radha Echavarria, Eros Robbins and colleagues, with an educational juli from [employer]. Thrive Questionnaire Date Thrive assessed: 03/10/25 I am a: Patient What is your living situation today?: I have a steady place to live Within the past 12 months, did the food you bought not last and you didn't have the money to get more?: Never true Within the past 12 months, did you worry whether your food would run out before you got money to buy more?: Never true Do you have trouble paying for medicines?: No Do you have trouble getting transportation to medical appointments?: No Do you have trouble paying your heating and electricity bill?: No Do you have trouble taking care of your child, family member or friend?: No Do you have trouble with day-to-day activities such as bathing, preparing meals, shopping, managing finances, etc.?: No Are you currently unemployed and looking for a job?: No Are you interested in more education?: No Please select the resources that you would like help with: None Currently or been in a relationship where the following occur: No concerns reported THRIVE Score: 0 AUDIT C Alcohol Use Questionnaire (AUDIT-C) 1. How often do you have a drink containing alcohol?: Never 3. How often do you have six or more drinks on one occasion?: Never Total Score: 0 Score Reviewed/Action Taken: Yes CASSIA-7 AMB Questionnaire CASSIA-7 Date CASSIA - 7 assessed: 03/10/25 Feeling nervous, anxious, or on edge: 3 = Nearly every day Not being able to stop or control worryin = Not at all Worrying too much about different things: 2 = More than half the days Trouble relaxin = Not at all Being so restless that it is hard to sit still: 0 = Not at all Becoming easily annoyed or irritable: 0 = Not at all Feeling afraid as if something awful might happen: 0 = Not at all Total CASSIA-7 score (0-4 normal; 5-9 mild; 10-14 moderate; 15-21 severe): 5 Source: Developed by Drs. Augie Acosta, Radha Echavarria, Eros Robbins and colleagues, with an educational juli from [employer]. CASSIA-7 Assessment Billing CASSIA-7 Assessment Tool: CASSIA-7 Assessment 76348 Review of Systems Const Denies chills, Reports fatigue, Denies fever(s) and Denies headache(s) ENT Denies dysphagia, Reports dizziness (occasional), Denies otalgia, Denies headache(s), Denies neck pain, Denies odynophagia and Denies sore throat Card Denies chest pain, Denies palpitations and Denies dyspnea Resp Denies chest congestion, Denies cough and Denies dyspnea GI Denies abdominal pain, Denies constipation, Denies dysphagia, Denies heartburn, Reports diarrhea (on and off), Denies nausea, Denies odynophagia and Denies vomiting Denies difficulty urinating, Denies dysuria, Denies nocturia and Denies urinary frequency Musc Denies back pain and Denies neck pain Skin/Breast Denies rash Neuro Reports dizziness (occasional) and Denies headache(s) Endo Reports fatigue and Denies palpitations Physical exam (Primary Care) Vital Signs: Last Vital Signs Pulse 84 03/10/25 14:33 BP 132/84 03/10/25 14:33 Pulse Ox 98 03/10/25 14:33 Oxygen Delivery Method Room Air 03/10/25 14:33 BMI result Body Mass Index 28.8 Tobacco/Smoking Status: Tobacco use Status Tobacco use date assessed 03/10/25 03/10/25 14:42 Patient Tobacco Use Status Former Tobacco user 03/10/25 14:42 e-Cigarette/Vaping Use Never Used 03/10/25 14:42 PHQ-9: PHQ-9 Score PHQ-9: Total score 16 03/10/25 14:54 Depression Screening Interpretation: Positive Depression Screening Follow-up: E xisting condition and Follow-up Visit Requested Thrive Assessment: Date of Thrive Assessment Date Thrive assessed 03/10/25 03/10/25 14:42 Currently or been in a relationship where the following occur: No concerns reported Const General: no acute distress and alert HENMT Ears: TM's normal bilaterally and EAC's normal Throat: Yes posterior oropharynx normal and Yes tonsils normal (no TP congestion noted) Neck Neck: Yes supple and No lymphadenopathy Thyroid: Thyroid normal Resp Auscultation: clear to auscultation bilaterally, no rales and no wheezes Cardio Rate: regular rate Rhythm: regular rhythm Heart sounds: no murmurs GI Palpation (GI): Soft to palpation and nontender Auscultation: normal bowel sounds General: Yes no CVA tenderness Back/Spine/Pelvis Back: no CVA tenderness Thoracic/Lumbar Spine: No lumbar spinal tenderness Skin Rashes: no rashes Extrem General: Yes no clubbing, cyanosis or edema Results Reviewed Results Reviewed: Laboratory Tests 02/27/25 07:50 WBC 8.1 Hgb 13.0 L Hct 37.2 L Plt Count 339 Sodium 139 Potassium 3.9 Creatinine 0.95 Estimated GFR > 60 Fasting Glucose 115 H Calcium 9.0 D Iron 62 TIBC 359 % Saturation 17 AST 45 H ALT 23 Triglycerides 1340 H Cholesterol 270 H LDL Cholesterol, Calc TNP HDL Cholesterol 31 L Vitamin B2 15.2 Vitamin B12 158 L 25-OH Vitamin D Total 27.9 L Lyme Progressive Test TNP Coding Level of Care Code Est Pt Level 4 (99897) Diagnoses Vitamin B12 deficiency E53.8 Mixed hyperlipidemia E78.2 Impaired fasting glucose R73.01 FREDDIE (obstructive sleep apnea) G47.33 Vitamin D deficiency E55.9 Overweight (BMI 25.0-29.9) E66.3 Additional Codes CASSIA-7 Assessment Billing - CASSIA-7 Assessment Tool: CASSIA-7 Assessment 89491 ([id number]) PHQ-9 - 00078 - PHQ-9 Billing: Yes ([id number]) Assessment & Plan Assessment & Plan (1) Vitamin B12 deficiency: Code(s): E53.8 - Deficiency of other specified B group vitamins Category: Medical Plan: Her B12 level was low on his recent labs Will start him on Vitamin B12 injections 1000 mcg IM once a week x 3 weeks, then continue 1000 mcg QD Will recheck his Vitamin B12 level for follow up (2) Mixed hyperlipidemia: Code(s): E78.2 - Mixed hyperlipidemia Category: Medical Plan: Results of his labs done a couple of weeks ago reviewed and discussed with patient Reinforced low-cholesterol diet Continue gemfibrozil 600 BID and Niacin ER 500 mg QD (3) Impaired fasting glucose: Code(s): R73.01 - Impaired fasting glucose Category: Medical Plan: His FBS was elevated at 115 mg/dl on his recent labs Reinforced low calorie/low carb diet (4) FREDDIE (obstructive sleep apnea): Code(s): G47.33 - Obstructive sleep apnea (adult) (pediatric) Category: Medical Plan: Continue using his CPAP device when sleeping at night (5) Vitamin D deficiency: Code(s): E55.9 - Vitamin D deficiency, unspecified Category: Medical Plan: Continue OTC Vitamin D supplements daily (6) Overweight (BMI 25.0-29.9): Code(s): E66.3 - Overweight Category: Medical Plan: Reinforced diet/exercise as tolerated/lose weight Plan To return as scheduled on 03/30/2025 for his annual PE with his PCP Orders: Orders Methylmalonic Acid 03/10/25 E53.8 - Deficiency of other specified B group vitamins Complete Blood Count Auto Diff 03/10/25 D64.9 - Anemia, unspecified, E53.8 - Deficiency of other specified B group vitamins Vitamin B12 and Folate 03/10/25 E53.8 - Deficiency of other specified B group vitamins Medications: New cyanocobalamin (vitamin B-12) 1000 mcg IM every week x 3 weeks, then continue 1000 mcg orally QD 1,000 mcg (15 mL) PO QWEEK 45 mL 0RF 3 weeks
[2025-03-10 14:33] VITALS: BP 132/84; PULSE 84; O2SAT 98; BMI 28.8
--- OUTSIDE RECORDS SUMMARY | 2025-03-10 17:00 | XMS_ITS | Encounter Summary ---
Author Organization [facility] Address [address] [place] [address] Phone Care Team Providers Care Bedspread Cutter Name Role Phone Dayton Gould Primary Care Provider + Encounter Details Date Type Department Care Team (Late st Contact Info) Description 06/09/2024 Procedure Pass [facility], Ct Scan - [facility] [address] [place] [address] Social History Tobacco Use Types Packs/Day Years [...] 09/20/2026 9:00 AM EDT Office Visit [facility] [address] [place] [address] Bernice Jacome [address] [facility], [address] [place] [address] [email or web address] documented as of this encounter Visit Diagnoses Not on filedocumented in this encounter Additional Health Concerns Infection Onset Date Last Indicated Resolved Time CoV-Risk Comment:Per note documentation 08/04/2024 08/04/2024 9:21 AM EST CDiff-Risk 08/04/2024 08/05/2024 08/05/2024 2:09 AM EST CoV-Risk 03/09/2025 03/09/2025 documented as of this encounter Care Teams Bedspread Cutter Relationship Specialty Start Date End Date Dayton Gould PA [facility] [place] [address] PCP - General 10/05/20 documented as of this encounter Additional Source Comments The information contained in this document represents components of the legal health record. It is not the complete legal health record.[facility]
--- OUTSIDE RECORDS SUMMARY | 2025-03-10 17:00 | XMS_ITS | Encounter Summary ---
Author Organization [facility] Address [address] [place] [address] Phone Care Team Providers Care Ladle Liner Name Role Phone Dayton Gould Primary Care Provider + Encounter Details Date Type Department Care Team (Late st Contact Info) Description 06/07/2024 Procedure Pass [facility], Ct Scan - [facility] [address] [place] [address] Social History Tobacco Use Types Packs/Day Years [...] 06/08/2024 3:07 AM Tino Cooper RN * [place] Suicide Severity Rating Scale (Screener/Recent Self-Report) Question [...] 9:00 AM EDT Office Visit [facility] [address] [place] [address] Bernice Jacome [address] [place] [address], [address] [place] [address] [email or web address] documented as of this encounter Visit Diagnoses Not on filedocumented in this encounter Additional Health Concerns Infection Onset Date Last Indicated Resolved Time CoV-Risk Comment:Per note documentation 06/07/2024 06/07/2024 4 7:18 AM EST CoV-Risk Comment:Per note documentation 08/04/2024 08/04/2024 5 9:21 AM EST CDiff-Risk 08/04/2024 08/05/2024 08/05/2024 2:09 AM EST CoV-Risk 03/09/2025 03/09/2025 documented as of this encounter Care Teams Ladle Liner Relationship Specialty Start Date End Date Dayton Gould PA [address] [place] [address] PCP - General 10/05/20 documented as of this encounter Additional Source Comments The information contained in this document represents components of the legal health record. It is not the complete legal health record.[facility]
--- OUTSIDE RECORDS SUMMARY | 2025-03-10 17:00 | XMS_ITS | Encounter Summary ---
Author Organization [facility] Address [address] [facility] [address] [place] [address] Phone Care Team Providers Care Cargo Worker Name Role Phone Dayton Gould Primary Care Provider + Encounter Details Date Type Department Care Team (Late st Contact Info) Description 07/29/2022 Procedure Pass [facility], Ct Scan - [address] [address] Social History Tobacco Use Types Packs/Day Years [...] 07/29/2022 3:45 PM Leola Flynn RN * [place] Suicide Severity Rating Scale (Screener/Recent Self-Report) Question [...] Description 09/20/2026 9:00 AM EDT Office Visit [facility] [address] [place] [address] Bernice Jacome 22 [facility], [address] [place] [address] [email or web address] [...] documented as of this encounter Care Teams Cargo Worker Relationship Specialty Start Date End Date Dayton Gould PA [address] [place] [address] PCP - General 10/05/20 documented as of this encounter Additional Source Comments The information contained in this document represents components of the legal health record. It is not the complete legal health record.[facility]
--- OUTSIDE RECORDS SUMMARY | 2025-03-10 17:00 | XMS_ITS | Encounter Summary ---
Author Organization [facility] Address [address] [facility] [address] [place] [address] Phone Care Team Providers Care Rn Sexual Assault Name Role Phone Dayton Gould Primary Care Provider + Encounter Details Date Type Department Care Team (Late st Contact Info) Description 12/11/2021 Procedure Pass [facility], Ct Scan - [address] [address] Social History Tobacco Use Types Packs/Day Years [...] 5:39 AM EDT Yoli Higginbotham RN * [place] Suicide Severity Rating Scale (Screener/Recent Self-Report) Question [...] 09/20/2026 9:00 AM EDT Office Visit [facility] [address] [place] [address] Bernice Jacome 22 [facility], [address] [place] [address] [email or web address] documented as of [...] documented as of this encounter Care Teams Rn Sexual Assault Relationship Specialty Start Date End Date Dayton Gould PA [facility] [place] [address] PCP - General 10/05/20 documented as of this encounter Additional Source Comments The information contained in this document represents components of the legal health record. It is not the complete legal health record.[facility]
--- OUTSIDE RECORDS SUMMARY | 2025-03-10 17:00 | XMS_ITS | Encounter Summary ---
Author Organization [facility] Address [address] [facility] [address] [place] [address] Phone Care Team Providers Care Printed Circuit Board Preassembler Name Role Phone Dayton Gould Primary Care Provider + Encounter Details Date Type Department Care Team (Late st Contact Info) Description 06/16/2023 Procedure Pass [facility], Ct Scan - [address] [address] Social History Tobacco Use Types Packs/Day Years [...] 06/16/2023 6:47 PM Leandro Mukherjee RN * [place] Suicide Severity Rating Scale (Screener/Recent Self-Report) Question [...] 09/20/2026 9:00 AM EDT Office Visit [facility] [address] [place] [address] Bernice Jacome [address] [place] [address], [address] [place] [address] [email or web address] documented as [...] documented as of this encounter Care Teams Printed Circuit Board Preassembler Relationship Specialty Start Date End Date Dayton Gould PA [address] [place] [address] PCP - General 10/05/20 documented as of this encounter Additional Source Comments The information contained in this document represents components of the legal health record. It is not the complete legal health record.[facility]
--- OUTSIDE RECORDS SUMMARY | 2025-03-10 17:00 | XMS_ITS | Encounter Summary ---
Author Organization [facility] Address [address] [facility] [address] [place] [phone] Phone Care Team Providers Care Outside Salesperson Name Role Phone Dayton Gould Primary Care Provider + Encounter Details Date Type Department Care Team (Late st Contact Info) Description 12/15/2021 Procedure Pass [facility] Endoscopy Admitting Dept Virtual Department [address] [place] [address] Social History Tobacco Use Types Packs/Day Years [...] Description 09/20/2026 9:00 AM EDT Office Visit [facility] [address] [place] [address] Bernice Jacome [address] [place] [address], [address] [place] [address] [email or web address] documented as of this encounter [...] documented as of this encounter Care Teams Outside Salesperson Relationship Specialty Start Date End Date Dayton Gould PA [address] [place] [address] PCP - General 10/05/20 documented as of this encounter Additional Source Comments The information contained in this document represents components of the legal health record. It is not the complete legal health record.[facility]
--- OUTSIDE RECORDS SUMMARY | 2025-03-10 17:00 | XMS_ITS | Encounter Summary ---
Author Organization [facility] Address [address] [facility] [address] [place] [address] Phone Care Team Providers Care Density Control Puncher Name Role Phone Dayton Gould Primary Care Provider + Encounter Details Date Type Department Care Team (Late st Contact Info) Description 02/20/2025 Procedure Pass [facility], Ct Scan - [facility] [address] [place] [address] Social History Tobacco Use Types Packs/Day Years [...] EDT Office Visit [facility] [address] [place] [address] [place] [address] Bernice Jacome [address] [place] [address], [address] [place] [address] [email or web address] documented as of this encounter Visit Diagnoses Not on filedocumented in this encounter Additional Health Concerns Infection Onset Date Last Indicated Resolved Time CoV-Risk 03/09/2025 03/09/2025 documented as of this encounter Care Teams Density Control Puncher Relationship Specialty Start Date End Date Dayton Gould PA [address] [place] [address] PCP - General 10/05/20 documented as of this encounter Additional Source Comments The information contained in this document represents components of the legal health record. It is not the complete legal health record.[facility]
--- OUTSIDE RECORDS SUMMARY | 2025-03-10 17:00 | XMS_ITS | Encounter Summary ---
Author Organization [facility] Address [address] [place] [address] [place] [address] Phone Care Team Providers Care Garment Folder Name Role Phone Dayton Gould Primary Care Provider + Encounter Details Date Type Department Care Team (Late st Contact Info) Description 09/12/2023 Procedure Pass [facility] [place] [address] Social History Tobacco Use Types Packs/Day Years [...] [facility] [address] [place] [address] [place] [address] Bernice Jacome [address], [address] [place] [address] [email or web address] documented [...] documented as of this encounter Care Teams Garment Folder Relationship Specialty Start Date End Date Dayton Gould PA [address] [place] [address] PCP - General 10/05/20 documented as of this encounter Additional Source Comments The information contained in this document represents components of the legal health record. It is not the complete legal health record.[facility]
--- OUTSIDE RECORDS SUMMARY | 2025-03-10 17:00 | XMS_ITS | Patient Health Record ---
Author Organization [facility] Address [address] [place] [address] Care Team Providers Care Striper Name Role Phone Dayton Gould Primary Care Provider Unavailab Pilo Johnson Jr Unavailable Allergies No Known Allergies Reason For Referral [...] Problem Status W/U Status Risk Notes Problem [id number] Ileostomy status (Z93.2) Active confirmed Problem [id number] Ulcerative colit is without complications, unspecified location (K51.90) Active confirmed Problem Hypertriglyceridemia (796500928) Hypertriglyceridemia (E78.1) Active confirmed Problem Pancreatitis (79865623) Pancreatitis (K85.90) Active confirmed Problem [id number] Acute pancreatit is without infection or necrosis, unspecified pancreatitis type (K85.90) Active confirmed Problem 76792114 Ulcerative colit is, unspecified (K51.90) Active confirmed Plan Of Treatment Pending Test Test Name Order Date LIVER PROFILE 05/31/2022 Triglycerides 05/31/2022 Lipase 05/31/2022 Insurance Providers Payer Name Payer Address Payer Phone Subscriber Number Group Number Insured Name Patient Relationship to Insured Coverage Start Date Coverage End Date [facility] Plan [address] [address] [place], [place] [id number] [phone] [id number] KAMARI DELEON Self - patient is the [...]
--- OUTSIDE RECORDS SUMMARY | 2025-03-10 17:00 | XMS_ITS | Encounter Summary ---
Author Organization [facility] Address [address] [facility] [address] [place] [address] Phone Care Team Providers Care Compensation And Benefits Manager Name Role Phone Dayton Gould Primary Care Provider + Encounter Details Date Type Department Care Team (Late st Contact Info) Description 08/24/2024 Procedure Pass [facility], Ct Scan - [facility] [address] [place] [address] Social History Tobacco Use Types Packs/Day Years [...] EDT Office Visit [facility] [address] [place] [address] [place] [address] Bernice Jacome [address] [place] [address], [address] [place] [address] [email or web address] documented as of this encounter Visit Diagnoses Not on filedocumented in this encounter Additional Health Concerns Infection Onset Date Last Indicated Resolved Time CoV-Risk 03/09/2025 03/09/2025 documented as of this encounter Care Teams Compensation And Benefits Manager Relationship Specialty Start Date End Date Dayton Gould PA [address] [place] [address] PCP - General 10/05/20 documented as of this encounter Additional Source Comments The information contained in this document represents components of the legal health record. It is not the complete legal health record.[facility]
--- OUTSIDE RECORDS SUMMARY | 2025-03-10 17:00 | XMS_ITS | Encounter Summary ---
Author Organization [facility] Address [address] [facility] [address] [place] [address] Phone Care Team Providers Care Heading Up Machine Operator Name Role Phone Dayton Gould Primary Care Provider + Encounter Details Date Type Department Care Team (Late st Contact Info) Description 12/14/2021 Procedure Pass [facility], [address] [address] Social History Tobacco Use Types Packs/Day Years [...] Description 09/20/2026 9:00 AM EDT Office Visit [address] [address] Bernice Jacome [address] [place] [address], [address] [place] [address] [email or web address] documented as of this encounter Visit [...] documented as of this encounter Care Teams Heading Up Machine Operator Relationship Specialty Start Date End Date Dayton Gould PA [address] [place] [address] PCP - General 10/05/20 documented as of this encounter Additional Source Comments The information contained in this document represents components of the legal health record. It is not the complete legal health record.[facility]
--- OUTSIDE RECORDS SUMMARY | 2025-03-10 17:00 | XMS_ITS | Clinical Summary ---
Author Organization [facility] Address [address] [place] [address] Care Team Providers Care Matchbook Maker Name Role Phone Unavailable Primary Care Provider [...] 3-dose SCD M series) 2007 COVID-19 Vaccine (2023-2 5 season) 2024 Pneumococcal Vaccine: Pediat jeremiah (0-5 Years) and At-Risk Patients (6 to 49 Years) Aged Out No longer eligible b ased on patient's age to complete this topic
--- OUTSIDE RECORDS SUMMARY | 2025-03-10 17:00 | XMS_ITS | Encounter Summary ---
Author Organization [facility] Address [address] [facility] [address] [place] [address] Phone Care Team Providers Care Trade Recruiter Name Role Phone Dayton Gould Primary Care Provider + Encounter Details Date Type Department Care Team (Late st Contact Info) Description 03/10/2025 Procedure Pass [facility], Ct Scan - [facility] [address] [place] [address] Social History Tobacco Use Types Packs/Day Years [...] housing situation today? I have marita sing 03/09/2025 How many times have you move [...] EDT Office Visit [facility] [address] [place] [address] [place] [address] Bernice Jacome [address] [place] [address], [address] [place] [address] [email or web address] documented as of this encounter Visit Diagnoses Not on filedocumented in this encounter Additional Health Concerns Infection Onset Date Last Indicated Resolved Time CoV-Risk 03/09/2025 03/09/2025 documented as of this encounter Care Teams Trade Recruiter Relationship Specialty Start Date End Date Dayton Gould PA [address] [place] [address] PCP - General 10/05/20 documented as of this encounter Additional Source Comments The information contained in this document represents components of the legal health record. It is not the complete legal health record.[facility]
--- OUTSIDE RECORDS SUMMARY | 2025-03-10 17:00 | XMS_ITS | Clinical Summary ---
Author Organization [facility] Address [address] [facility] [address] [place] [address] Phone Care Team Providers Care Salvager Name Role Phone Dayton Gould Primary Care [...] times a day. 14 capsule 11/30/2024 Active dicyclomine (BENTYL) 10 MG capsule Take 1 capsule (10 mg total) by mouth 4 (four) times a day before meals and nightly. 20 capsule 03/10/2025 Active Active Problems Problem Noted Date Diagnosed [...] increase D5 NS infusion. Continue to monitor [id number] blood sugars with goals of eventually initiating [...] related pancreatitis and the last admitted to [facility] in September 2020 when triglyceride levels were greater than 4000 after stopping medication Was recently admitted to [facility] for recurrent pancreatitis. Was treated supportively and discharged home. He presented back to [facility] with recurrent abdominal pain, bloating, vomiting [...] low-fat diet today Regular GI is in [place] Dr. Bright Follow over the day and [...] and stool output hold home ibuprofen - 2/ improving but not back to baseline, cont [...] Encounters Date Type Department Care Team Description 03/10/2025 Procedure Pass [facility], Ct [address] [address] 03/09/2025 9:25 PM EDT - 03/10/2025 3:17 AM EDT Emergency [facility] [address] [place] [address] Breanne Locke MD Discharge Disposition: Home or Self Care 02/20/2025 12:26 AM EDT - 02/20/2025 5:53 AM EDT Emergency [facility] [address] [place] [address] Samir Dee, DO Discharge Disposition: Home or Self Care 02/20/2025 Procedure Pass [facility], Ct Scan [address] [address] from Last 3 Months Immunizations Immunization Administration [...] Mass Index 28.73 03/09/2025 6:04 PM EDT Plan of Treatment Upcoming Encounters Date Type Department Care Team (Late st Contact Info) Description 09/20/2026 9:00 AM EDT Office Visit [facility] [address] [place] [address] Bernice Jacome [address] [facility], [address] [place] [address] [email or web address] Health Maintenance Due Date Last Done Comments DEPRESSION SCREENING 1992 SMOKING Hx and SMOKELESS TOBACCO SCREENING 1993 HEPATITIS C SCREENING 1998 HIV ONE-TIME SCREENING (18-65 YEARS) 1998 Adult Td,Tdap Booster 10/27/2024 10/27/2014 BLOOD PRESSURE 01/05/2025 07/08/2024 INFLUENZA VACCINE (#1) 2025 05/16/2019, 2016 COVID-19 VACCINE ( season) 2025 11/01/2020 SCREENING FOR DIABETES 03/09/2028 03/09/2025, 2023 LIPID PANEL 02/28/2029 02/29/2024, 04/0 01/2021, [...] WITH REFLEX Routine 03/09/2025 6:44 PM EDT C-REACTIVE PROTEIN Routine 03/09/2025 6: 44 PM EDT LIPASE STAT 03/09/2025 6:44 PM EDT LFTS (HEPATIC PANEL) STAT 03/09/2025 6:44 PM EDT BASIC METABOLIC PANEL STAT 03/09/2025 6:44 PM EDT CBC AND DIFFERENTIAL STAT 03/09/2025 6:[address] ABDOMEN/PELVIS WITH CONTRAST Routine 02/20/2025 2:46 AM EDT TROPONIN STAT 02/19/2025 11:02 PM EDT LFTS (HEPATIC PANEL) Routine 02/19/2025 9:58 PM EDT LIPASE Routine 02/19/2025 9:58 PM EDT TROPONIN STAT 02/19/2025 9:58 PM EDT BASIC METABOLIC PANEL STAT 02/19/2025 9:58 PM EDT CBC AND DIFFERENTIAL STAT 02/19/2025 9:58 PM EDT ECG 12-LEAD STAT 02/19/2025 9:27 PM EDT LIPID PANEL STAT 02/29/2024 5:05 PM EDT from Last 3 Months or Most Recently Relevant to Health Maintenance Results * CT ABDOMEN/PELVIS WITH CONTRAST (03/10/2025 [...] EDT) Heterophile Ab NON-REACTI VE NON-REACTI VE [facility] Blood (Blood) 03/09/2025 10: 35 PM EDT 03/09/2025 10:49 PM EDT Breanne Locke MD NON CULTURE MICROBIOLOGY Fin al Result Performing Organization Address [facility] de Phone Number [address] [address] * COVID Pandemic Respiratory Viral Order (PRO) (03/09/2025 10:23 PM EDT) Test Ordered Rapid COVID has been ordered [facility] Specimen Source/Description NASAL [facility] SARS-CoV 2 (COVID-19) PCR Not Detected Not Detected [facility] Comment: SARS-CoV-2 not detected Negative results do not preclude SARS-CoV-2 infection and should not be used as the sole basis for patient management decisions. Negative results must be combined with clinical observations, patient history, and epidemiological information. Other (Nasopharyngeal swab) 03/09/2025 10:23 PM EDT 03/09/2025 11:13 PM EDT Breanne Locke MD BODY FLUIDS AND STOOLS ORDER PREETHI Final Result Performing Organization Address [facility] de Phone Number [address] [address] * Urinalysis w/reflex Urine Culture (03/09/2025 9:32 PM EDT) COLOR Yellow Yellow [facility] CLARITY Clear [facility] GLUCOSE Negative Negative [facility] BILI Negative Negative [facility] KETONES Negative Negative [facility] SPECIFIC GRAVITY >1.030 1.005 - 1.030 [facility] BLOOD Negative Negative [facility] PH 6.0 5.0 - 8.0 [facility] Protein-UA Negative Negative [facility] NITRITE Negative Negative [facility] Leukocyte esterase, ur Negative Negative [facility] Urine (Urine) 03/09/2025 9:3 2 PM EDT 03/09/2025 9:54 PM EDT us Carlos Eduardo Cummins MD URINE ORDERABLES Final R esult Performing Organization Address [facility] Co de Phone Number [address] [address] * TSH with reflex (03/09/2025 6:44 PM EDT) TSH 0.70 0.27 - 4.20 uIU/mL [facility] 03/09/2025 6:44 PM EDT 03/09/2025 7:00 PM EDT us Carlos Eduardo Cummins MD LAB BLOOD ORDERABLES Fin al Result Performing Organization Address [facility] de Phone Number [address] [address] * LFTs (hepatic panel) (03/09/2025 6:44 PM EDT) Only the most recent of2 resultswithin the time period is included. ALKALINE PHOSPHATASE 101 39 - 117 U/L [facility] TOTAL BILIRUBIN 0.4 0.0 - 1.2 mg/dL [facility] DIRECT BILIRUBIN <0.1 0.0 - 0.2 mg/dL [facility] Bilirubin (Indirect) NOT CALCULATED 0 - 1.5 mg/dL [facility] AST 20 0 - 37 U/L [facility] ALT 16 0 - 40 U/L [facility] TOTAL PROTEIN 7.6 6.5 - 8.0 g/dL [facility] ALBUMIN 4.4 3.9 - 4.8 g/dL [facility] GLOBULIN 3.2 1 - 4.8 g/dL [facility] A/G Ratio 1.38 1.00 - 4.80 RATIO [facility] Blood 03/09/2025 6:44 PM EDT 03/09/2025 7:00 PM EDT us Carlos Eduardo Cummins MD LAB BLOOD ORDERABLES Fin al Result [facility] [address] [place] [address] * (ABNORMAL) CBC and differential (03/09/2025 6:44 PM EDT) Only the most recent of2 resultswithin the time period is included. WBC 9.01 4.00 - 11.00 K/uL [facility] RBC 5.37 4.50 - 5.90 M/uL [facility] HGB 14.1 13.5 - 17.5 g/dL [facility] HCT 42.1 41.0 - 53.0 % [facility] PLT 302 150 - 450 K/uL [facility] MCV 78.4(L) 80.0 - 100.0 fL [facility] MCH 26.3(L) 27.0 - 31.0 pg [facility] MCHC 33.5 32.0 - 36.0 g/dL [facility] RDW 13.3 11.5 - 14.5 % [facility] MPV 9.7 8.4 - 12.0 fL [facility] NRBC 0.00 0.00 /100 WBCs [facility] ABSOLUTE NRBC 0.00 0.00 K/uL [facility] DIFF METHOD Auto [facility] NEUTS 46.5(L) 48.0 - 76.0 % [facility] LYMPHS 36.3 18.0 - 41.0 % [facility] MONOS 13.3(H) 4.0 - 11.0 % [facility] EOS 3.0 0.0 - 5.0 % [facility] BASOS 0.3 0.0 - 1.5 % [facility] Granulocytes, immature (%) 0.6 0.0 - 0.9 % [facility] ABSOLUTE NEUTS 4.19 1.92 - 7.60 K/uL [facility] ABSOLUTE LYMPHS 3.27 0.72 - 4.10 K/uL [facility] ABSOLUTE MONOS 1.20(H) 0.16 - 1.10 K/uL [facility] ABSOLUTE EOS 0.27 0.00 - 0.50 K/uL [facility] ABSOLUTE BASOS 0.03 0.00 - 0.15 K/uL [facility] Granulocytes, immature 0.05 0.00 - 0.09 K/uL [facility] Blood 03/09/2025 6:44 PM EDT 03/09/2025 7:00 PM EDT us Carlos Eduardo Cummins MD LAB BLOOD ORDERABLES Fin al Result [address] [address] * C-Reactive Protein (03/09/2025 6:44 PM EDT) C REACTIVE PROTEIN <3.0 0.0 - 4.0 mg/L [facility] 03/09/2025 6:44 PM EDT 03/09/2025 7:00 PM EDT Carlos Eduardo Cummins MD LAB BLOOD ORDERABLES Fin al Result Performing Organization Address [facility] Co de Phone Number [address] [address] * Lipase (03/09/2025 6:44 PM EDT) Only the most recent of2 resultswithin the time period is included. LIPASE 52 16 - 63 U/L [facility] Blood 03/09/2025 6:44 PM EDT 03/09/2025 7:00 PM EDT Carlos Eduardo Cummins MD LAB BLOOD ORDERABLES Fin al Result Performing Organization Address [facility] Co de Phone Number [address] [address] * (ABNORMAL) Basic metabolic panel (03/09/2025 6:44 PM EDT) Only the most recent of2 resultswithin the time period is included. SODIUM 136 133 - 146 mmol/L [facility] CHLORIDE 104 96 - 108 mmol/L [facility] POTASSIUM 4.1 3.3 - 5.1 mmol/L [facility] Comment:Specimen slightly he molyzed, result may be falsely elevated. CO2 21 21 - 35 mmol/L [facility] BUN 11 6 - 19 mg/dL [facility] CREATININE 0.80 0.5 - 1.5 mg/dL [facility] GLUCOSE 116(H) 70 - 99 mg/dL [facility] CALCIUM 9.4 8.4 - 10.3 mg/dL [facility] EGFR 112 >59 mL/min/1.7 3m2 [facility] Comment:Estimated glomerular filtration rate calculated using the CKD-EPI refit equation. ANION GAP 15 10 - 20 mmol/L [facility] Blood 03/09/2025 6:44 PM EDT 03/09/2025 7:00 PM EDT us Carlos Eduardo Cummins MD LAB BLOOD ORDERABLES Fin al Result [address] [address] * CT ABDOMEN/PELVIS WITH CONTRAST (02/20/2025 2:46 [...] degenerative changes. IMPRESSION: No acute abdominopelvic abnormality. Samir Dee DO IMG CT ABD/PELVIS Final Resul t * Troponin (02/19/2025 11:02 PM EDT) Only the most recent of2 resultswithin the time period is included. Troponin-T, HS Gen5 <6 0 - 14 ng/L [facility] Blood 02/19/2025 11:0 2 PM EDT 02/19/2025 11:12 PM EDT Elias Gotti MD LAB BLOOD ORDERAB LES Final Result Performing Organization Address [facility]/ZIP Co de Phone Number [facility] [address] [place] [address] * ECG 12-LEAD (02/19/2025 9:27 PM EDT) Ventricular Rate EKG/MIN 85 BPM [facility] Atrial Rate 85 BPM [facility] AK Interval 144 ms [facility] QRS Duration 82 ms [facility] QT Interval 382 ms [facility] QTC Interval 454 ms [facility] P Hallock 56 degrees [facility] R Wave Hallock 23 degrees [facility] T Wave Hallock 11 degrees [facility] 02/19/2025 9:27 PM EDT [...] ORDERABLES F inal Result Performing Organization Address [facility] Co de Phone Number [facility] * (ABNORMAL) Lipid panel (02/29/2024 5:05 PM EDT) HDL 21 mg/dL [facility] Comment: Interpretation <40 mg/dL: Low HDL cholesterol (major risk factor for CHD) Greater than or equal to 60 mg/dL: High HDL cholesterol ( negative risk factor for CHD) HDL - cholesterol is affected by a number of factors, e.g. smoking, excerise, hormones, sex and age. CHOLESTEROL 764(H) 0 - 240 mg/dL [facility] TRIGLYCERIDES 3,858(H) 30 - 160 mg/dL [facility] LDL NOT CALCULATED 50 - 129 mg/dL [facility] Comment: Unable to calculate due to elevated TRIG of greater than 400. A measured LDL will be performed. CARDIAC RISK RATIO 36.4(H) 3.4 - 5.0 [facility] Blood 02/29/2024 5:05 PM EDT 02/29/2024 5:07 PM EDT us Alexander Foster PA-C LAB BLOOD ORDERABLES Final Re sult [facility] [address] [place] [address] from Last 3 Months or Most Recently Relevant to Health Maintenance Additional Health Concerns Infection Onset Date Last Indicated CoV-Risk 03/09/2025 03/09/[address] [place]ANDA[place]essa P[place]RO [id number] [facility] [address] P[place] HERNANDEZ [id number] [facility] [address] [place] [id number] [facility] Advance Directives For more information, please contact: [phone] (9AM - 5PM [facility], Sunday-Sunday) Documents on File Type Date Recorded Patient Capacitor Tester Expl anation Healthcare Proxy 03/11/2024 4:11 PM [...] presumed on basis of a Care Teams Salvager Relationship Specialty Start Date End Date Dayton Gould PA [address] [place] [address] PCP - General 10/05/20 Additional Source Comments The information contained in this document represents components of the legal health record. It is not the complete legal health record.[facility]
== END 2025-03-10 15:15 | disposition home or self-care (01) ==
LOC: HO.HMCH 14:25
PROVIDERS: PCP Physician Assistant; Visit Provider Internal Medicine
DX: E53.8 Deficiency of other specified B group vitamins (principal); E78.2 Mixed hyperlipidemia; R73.01 Impaired fasting glucose; G47.33 Obstructive sleep apnea (adult) (pediatric); E55.9 Vitamin D deficiency, unspecified; E66.3 Overweight

== ENCOUNTER → 2025-03-10 14:25 | Outpatient (BNVA) | payer OTHER, SELFPAY | PROVIDERS: PCP Physician Assistant; Visit Provider Internal Medicine | DX: E78.2 Mixed hyperlipidemia (principal); R53.83 Other fatigue; R10.9 Unspecified abdominal pain; R42 Dizziness and giddiness; E53.8 Deficiency of other specified B group vitamins; R73.01 Impaired fasting glucose; G47.33 Obstructive sleep apnea (adult) (pediatric); E25.9 Adrenogenital disorder, unspecified; E66.3 Overweight; D64.9 Anemia, unspecified; Z68.28 Body mass index [BMI] 28.0-28.9, adult | CPT/HCPCS: 96127; 99212 ==

== ENCOUNTER 2025-03-14 00:41 | Emergency (ER) | payer OTHER, SELFPAY ==
--- OUTSIDE RECORDS SUMMARY | 2025-03-09 21:25 | XMS_ITS | Encounter Summary ---
Author Organization [facility] Address [address] [facility] [address] [place] [phone] Phone Care Team Providers Care Truck Bracer Name Role Phone Dayton Gould Primary Care Provider + Reason for Visit * Reason Comments Abdominal Pain Encounter Details Date Type Department Care Team (Late st Contact Info) Description 03/09/2025 9:25 PM EDT - 03/10/2025 3:17 AM EDT Emergency [facility] [address] [place] [address] Breanne Locke MD [address] [place] [address] [email or web address] Discharge Disposition: Home or Self Care Social [...] 6:02 PM EDT Sheila Davidson RN * [place] Suicide Severity Rating Scale (Screener/Recent Self-Report) Question Answer Date of Assessment Author 1. Wish to be (Past 1 Month) No 025 6:02 PM EDT Sheila Dietz, TAI 2. Non-Specific Active Suici william Thoughts (Past 1 Month) No 03/09/2025 6:02 PM EDT Sheila Deitz, TAI 6. Suicidal Behavior (Lifetime) No 6:02 [...] sent through Care Everywhere. * Abdominal Pain ([place]izen [place]) documented in this encounter Medications at Time [...] 12/15/2021 Performed by Satya Vora MD at [facility] ENDOSCOPY ILEOSTOMY Home Medications Prior [...] mg Oral Given Garrett Cabrales RN -- [facility] Assessment and Plan: patient presents with persistent [...] Independent history was obtained by other source. Qa Lead at bedside. Category 2 and 3: Independent [...] EDT Office Visit [facility] [employer] [facility] [address] [place] [address] [place] [address] Bernice Jacome [address] [place] [address], [address] [place] [address] [email or web address] documented as of this encounter Procedures Procedure [...] Additional chronic and/or incidental findings as above. Breanne Locke MD IMG CT ABD/PELVIS Final Resu lt * Heterophile antibody (monospot) (03/09/2025 10:35 PM EDT) Pathologist [facility] Heterophile Ab NON-REACTI VE NON-REACTI VE [facility] Blood (Blood) 03/09/2025 10: 35 PM EDT 03/09/2025 10:49 PM EDT Breanne Locke MD NON CULTURE MICROBIOLOGY Fin al Result Performing Organization Address City/State/[facility] Co de Phone Number [address] [address] * COVID Pandemic Respiratory Viral Order (PRO) (03/09/2025 10:23 PM EDT) Test Ordered Rapid COVID has been ordered [facility] Specimen Source/Description NASAL [facility] SARS-CoV 2 (COVID-19) PCR Not Detected Not Detected [facility] Comment: SARS-CoV-2 not detected Negative results do not preclude SARS-CoV-2 infection and should not be used as the sole basis for patient management decisions. Negative results must be combined with clinical observations, patient history, and epidemiological information. Other (Nasopharyngeal swab) 03/09/2025 10:23 PM EDT 03/09/2025 11:13 PM EDT us Breanne Locke MD BODY FLUIDS AND STOOLS ORDER PREETHI Final Result Performing Organization Address [facility]/ZIP Co de Phone Number [address] [address] * Urinalysis w/reflex Urine Culture (03/09/2025 9:32 PM EDT) COLOR Yellow Yellow [facility] CLARITY Clear [facility] GLUCOSE Negative Negative [facility] BILI Negative Negative [facility] KETONES Negative Negative [facility] SPECIFIC GRAVITY >1.030 1.005 - 1.030 [facility] BLOOD Negative Negative [facility] PH 6.0 5.0 - 8.0 [facility] Protein-UA Negative Negative [facility] NITRITE Negative Negative [facility] Leukocyte esterase, ur Negative Negative [facility] Urine (Urine) 03/09/2025 9:3 2 PM EDT 03/09/2025 9:54 PM EDT us Carlos Eduardo Cummins MD URINE ORDERABLES Final R esult Performing Organization Address [facility] Co de Phone Number [address] [address] * TSH with reflex (03/09/2025 6:44 PM EDT) TSH 0.70 0.27 - 4.20 uIU/mL [facility] 03/09/2025 6:44 PM EDT 03/09/2025 7:00 PM EDT us Carlos Eduardo Cummins MD LAB BLOOD ORDERABLES Fin al Result Performing Organization Address [facility] Co de Phone Number [address] [address] * C-Reactive Protein (03/09/2025 6:44 PM EDT) C REACTIVE PROTEIN <3.0 0.0 - 4.0 mg/L [facility] 03/09/2025 6:44 PM EDT 03/09/2025 7:00 PM EDT us Carlos Eduardo Cummins MD LAB BLOOD ORDERABLES Fin al Result Performing Organization Address [facility] Co de Phone Number [address] [address] * Lipase (03/09/2025 6:44 PM EDT) LIPASE 52 16 - 63 U/L [facility] Blood 03/09/2025 6:44 PM EDT 03/09/2025 7:00 PM EDT us Carlos Eduardo Cummins MD LAB BLOOD ORDERABLES Fin al Result Performing Organization Address [facility] Phone Number [address] [address] * LFTs (hepatic panel) (03/09/2025 6:44 PM EDT) ALKALINE PHOSPHATASE 101 39 - 117 U/L [facility] TOTAL BILIRUBIN 0.4 0.0 - 1.2 mg/dL [facility] DIRECT BILIRUBIN <0.1 0.0 - 0.2 mg/dL [facility] Bilirubin (Indirect) NOT CALCULATED 0 - 1.5 mg/dL [facility] AST 20 0 - 37 U/L [facility] ALT 16 0 - 40 U/L [facility] TOTAL PROTEIN 7.6 6.5 - 8.0 g/dL [facility] ALBUMIN 4.4 3.9 - 4.8 g/dL [facility] GLOBULIN 3.2 1 - 4.8 g/dL [facility] A/G Ratio 1.38 1.00 - 4.80 RATIO [facility] Blood 03/09/2025 6:44 PM EDT 03/09/2025 7:00 PM EDT us Carlos Eduardo Cummins MD LAB BLOOD ORDERABLES Fin al Result Performing Organization Address [facility] Co de Phone Number [address] [address] * (ABNORMAL) Basic metabolic panel (03/09/2025 6:44 PM EDT) Pathologist [facility] SODIUM 136 133 - 146 mmol/L [facility] CHLORIDE 104 96 - 108 mmol/L [facility] POTASSIUM 4.1 3.3 - 5.1 mmol/L [facility] Comment:Specimen slightly he molyzed, result may be falsely elevated. CO2 21 21 - 35 mmol/L [facility] BUN 11 6 - 19 mg/dL [facility] CREATININE 0.80 0.5 - 1.5 mg/dL [facility] GLUCOSE 116(H) 70 - 99 mg/dL [facility] CALCIUM 9.4 8.4 - 10.3 mg/dL [facility] EGFR 112 >59 mL/min/1.7 3m2 [facility] Comment:Estimated glomerular filtration rate calculated using the CKD-EPI refit equation. ANION GAP 15 10 - 20 mmol/L [facility] Blood 03/09/2025 6:44 PM EDT 03/09/2025 7:00 PM EDT us Carlos Eduardo Cummins MD LAB BLOOD ORDERABLES Fin al Result [address] [address] * (ABNORMAL) CBC and differential (03/09/2025 6:44 PM EDT) [facility] WBC 9.01 4.00 - 11.00 K/uL [facility] RBC 5.37 4.50 - 5.90 M/uL [facility] HGB 14.1 13.5 - 17.5 g/dL [facility] HCT 42.1 41.0 - 53.0 % [facility] PLT 302 150 - 450 K/uL [facility] MCV 78.4(L) 80.0 - 100.0 fL [facility] MCH 26.3(L) 27.0 - 31.0 pg [facility] MCHC 33.5 32.0 - 36.0 g/dL [facility] RDW 13.3 11.5 - 14.5 % [facility] MPV 9.7 8.4 - 12.0 fL [facility] NRBC 0.00 0.00 /100 WBCs [facility] ABSOLUTE NRBC 0.00 0.00 K/uL [facility] DIFF METHOD Auto [facility] NEUTS 46.5(L) 48.0 - 76.0 % [facility] LYMPHS 36.3 18.0 - 41.0 % [facility] MONOS 13.3(H) 4.0 - 11.0 % [facility] EOS 3.0 0.0 - 5.0 % [facility] BASOS 0.3 0.0 - 1.5 % [facility] Granulocytes, immature (%) 0.6 0.0 - 0.9 % [facility] ABSOLUTE NEUTS 4.19 1.92 - 7.60 K/uL [facility] ABSOLUTE LYMPHS 3.27 0.72 - 4.10 K/uL [facility] ABSOLUTE MONOS 1.20(H) 0.16 - 1.10 K/uL [facility] ABSOLUTE EOS 0.27 0.00 - 0.50 K/uL [facility] ABSOLUTE BASOS 0.03 0.00 - 0.15 K/uL [facility] Granulocytes, immature 0.05 0.00 - 0.09 K/uL [facility] Blood 03/09/2025 6:44 PM EDT 03/09/2025 7:00 PM EDT us Carlos Eduardo Cummins MD LAB BLOOD ORDERABLES Fin al Result [address] [address] documented in this encounter Visit Diagnoses Diagnosis [...] given undiluted IV push over 2 minutes. 223 (Given - Provider: Oliva Gleason RN) lactated ringers IV Bolus 1,000 mL (COMPLETED) 1,000 mL, Intravenous, Administer over 30 Minutes, Once, On Sun03/09/25 at 2230, For 1 dose 2233 (New Bag - Provider: Oliva Gleason, TAI)2338 (Stopped - Provider: Oliva Gleason RN) morphine [...] documented as of this encounter Care Teams Truck Bracer Relationship Specialty Start Date End Date Dayton Gould PA [address] [place] [address] PCP - General 10/05/20 documented as of this encounter Additional Source Comments The information contained in this document represents components of the legal health record. It is not the complete legal health record.[facility]
--- OUTSIDE RECORDS SUMMARY | 2025-03-11 15:00 | XMS_ITS | Encounter Summary ---
Author Organization [employer] Address [address] [place] [address] Care Team Providers Care Improvement Coordinator Name Role Phone Unavailable Primary Care Provider Unavailabl e Reason for Visit * Reason Comments Dental Pain Lower left side Encounter Details Date Type Department Care Team (Late st Contact Info) Description 03/11/2025 3:00 PM EDT Office Visit [facility] ADULT DENTAL [address] [place] [address] Austin Simmons Dental caries (Primary Dx); Pain, dental Social History Tobacco Use Types Packs/Day Years Used Date Smoking Tobacco: Former Cigarettes Smokeless Tobacco: Never Tobacco Cessation:Counseling Given: Not Answered Alcohol Use Standard Drinks/Week Comments Never 0 (1 standard drink = 0.6 oz pur e alcohol) Sex and Gender Information Value Date Recorded Sex Assigned at Male 05/01/2022 10:30 AM EDT Legal Sex Male 10:30 AM EDT Gender Identity Male 03/11/2025 1:03 PM EDT Sexual Orientation Straight 03/11/2025 1: 03 PM EDT documented as of this encounter Last Filed Vital Signs Vital Sign Reading Time Taken Comments Blood Pressure 134/88 03/11/2025 3:08 PM EDT Pulse - - Temperature - - Respiratory Rate - - Oxygen Saturation - - Inhaled Oxygen Concentration - - Weight - - Height - - Body Mass Index - - documented in this encounter Progress Notes * Austin Simmons - 03/11/2025 3:00 PM EDT Procedure Date: 03/11/2025 Performed by: Austin Simmons Graduate Internship: Binh Aguilar Patient ID: Justino Sheets is a 44 y.o. male presents for Dental Pain (Lower left side). Subjective: Pain: constant Duration: 2 weeks Objective: Tooth: #19 Radiographs Taken: PA and BW Radiographic Findings: Carious lesion on the mesial extending into the pulp Extra/Intra Oral Ex: findings: See chart for findings. Swelling: No Assessment/Plan: EXT #19,#30 Procedure Details 19 D0220 - INTRAORAL - PERIAPICAL FIRST RADIOGRAPHIC IMAGE D0270 - BITEWING - SINGLE RADIOGRAPHIC IMAGE D9110 - PALLIATIVE (EMERGENCY) TREATMENT OF DENTAL PAIN - MINOR PROCEDURE Patient presented to the clinic for limited exam due to dental pain in the lower left quad. Upon examination, #19 and #30 both show large carious lesions extending into the pulp. Tooth #19 has been causing him pain constantly for multiple weeks. Patient has been using orajel to relieve the pain. Patient agreed to have the teeth extracted due to non-restorability. 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 Patient was reassured that the treatment is necessary and will alleviate his pain. Patient instructed to take his supply of augmentin days prior to the extraction, as well as over the counter acetaminophen. It was emphasized and understood to not take over 4,000 mg of acetaminophenin one given day. Patient left in good condition. Next Visit: EXT #19 Cosigned by Aidan Tamayo DDS at 03/11/2025 3:45 PM EDT Associated attestation - Aidan Tamayo DDS - 03/11/2025 3:[address] Roni Naidu documented in this encounter Plan of Treatment Upcoming Encounters Date Type Department Care Team (Late st Contact Info) Description 03/19/2025 8:00 AM EDT Office Visit [facility] ADULT DENTAL [address] [place] [address] Scheduled Orders Name Type Priority Associated Diagnoses Orde r Schedule 19 19 EXTRACTION, ERUPTED TOOTH REQ REMOVAL OF BONE AND/OR SECTIONING OF TOOTH Dental Routine [address] arting 03/11/2025 30 30 EXTRACTION, ERUPTED TOOTH REQ REMOVAL OF BONE AND/OR SECTIONING OF TOOTH Dental Routine [address] arting 03/11/2025 PERIODIC ORAL EVALUATION - ESTABLISHED PATIENT Dental Routine 1 Occurren indy starting 03/11/2025 INTRAORAL - COMPLETE SERIES OF RADIOGRAPHIC IMAGES Dental Routine [address] arting 03/11/2025 PROPHYLAXIS - ADULT Dental Routine 1 Occ urrences starting 03/11/2025 documented as of this encounter Procedures Procedure Name Priority Date/Time Associated Diagnosis Comments PALLIATIVE (EMERGENCY) TREATMENT OF DENTAL PAIN - MINOR PROCEDURE Routine 03/11/2025 3:00 PM EDT 19 INTRAORAL - PERIAPICAL FIRST RADIOGRAPHIC IMAGE Routine 03/11/2025 3:00 PM EDT BITEWING - SINGLE RADIOGRAPHIC IMAGE Routine 03/11/2025 3:00 PM EDT documented in this encounter Visit Diagnoses Diagnosis Dental caries- Primary Unspecified dental caries Pain, dental documented in this encounter
--- OUTSIDE RECORDS SUMMARY | 2025-03-13 15:30 | XMS_ITS | Encounter Summary ---
Author Organization [employer] Address [address] [place] [address] [address], [place] [address] Care Team Providers Care Chemical Production Machine Operator Name Role Phone Unavailable Primary Care Provider Unavailabl e Reason for Visit * Reason Comments Dental Pain Encounter Details Date Type Department Care Team (Late Contact Info) Description 03/13/2025 3:30 PM EDT Office Visit [facility] ADULT DENTAL [address] [place] [address] Jovon Doss [address] [place] [address] Social History Tobacco Use Types Packs/Day Years Used Date Smoking Tobacco: Former Cigarettes Smokeless Tobacco: Never Alcohol Use Standard Drinks/Week [...] Encounters Date Type Department Care Team (Late Contact Info) Description 03/19/2025 8:00 AM EDT Office Visit [facility] ADULT DENTAL [address] [place] [address] documented as of this encounter Visit Diagnoses Not on filedocumented in this encounter
--- NOTE | 2025-03-14 00:47 | ED.DENTAL ---
HPI - Dental/Oral General Chief complaint: Dental/Oral Stated complaint: Toothache Time Seen by Provider: 03/14/25 00:46 Source: patient Mode of arrival: ambulatory Limitations: no limitations History of Present Illness ED Provider: Boni MASTERS HPI Narrative: The patient is a 44-year-old male presenting to the ED for evaluation of worsening dental pain. Patient reports he suffered a fracture of his left lower bicuspid a few months ago, reports he has been experiencing left lower jaw pain recurrently over the past few months, reports he has received multiple rounds of antibiotics for the infection and despite being advised to follow up with a dentist for definitive care of the patient reports he has taken the antibiotics, pain has improved, and he has not sought care from a dentist as he is afraid of dentists. The patient reports pain returned 1 week ago, at which time he reported the symptoms to his PCP and was prescribed Augmentin. The patient reports he has been taking Augmentin without any improvement in pain. Patient reports he has also attempted Celebrex, Motrin, hydrocodone, and morphine which he had left over at home, but denies any relief. The patient was seen by his dentist today and scheduled for a tooth extraction on 03/19. Patient presents to the ED reporting he is unable to tolerate the pain. Patient denies associated fever/chills, nausea, vomiting, or other systemic complaint. Related Data Home Medications ?Medication ?Instructions ?Recorded ?Confirmed metoprolol succinate 25 mg 25 mg PO DAILY 12/26/23 03/10/25 tablet,extended release 24 hr lorazepam 1 mg tablet 1 mg PO BEDTIME PRN 08/08/24 03/10/25 Previous Rx's ?Medication ?Instructions ?Recorded colostomy-Ileost.set,nonsteril 12 #5 ea 11/02/21 (2 07/03 ) (Premier Colostomy-Ileostomy) ostomy adhesive (Stomahesive Paste) #56.7 grams 11/02/21 ostomy supplies (Skin Prep Wipes) #50 ea 11/02/21 loperamide 2 mg capsule (Imodium 2 mg PO Q4H PRN loose stool #60 08/08/24 A-D) caps gemfibrozil 600 mg tablet 600 mg PO BID 30 days #60 tabs 10/25/24 ibuprofen 800 mg tablet 800 mg PO Q8H PRN pain 10 days #30 10/25/24 tabs niacin 250 mg tablet,extended 500 mg (2 x 250 mg) PO DAILY 90 10/30/24 release days #180 tabs ipratropium bromide 42 mcg (0.06 2 spray intranasal TID 30 days #15 02/25/25 %) nasal spray mL ketoconazole 2 % topical cream 1 appl topical DAILY 4 weeks #60 02/25/25 grams omeprazole 40 mg capsule,delayed 40 mg PO DAILY PRN Acid Reflux #90 02/25/25 release caps prednisone 20 mg tablet 40 mg (2 x 20 mg) PO DAILY 5 days 02/25/25 #10 tabs mecobalamin (vitamin B12) 1,000 1,000 mcg PO DAILY 90 days #90 tabs 03/03/25 mcg chewable tablet cyanocobalamin (vitamin B-12) 1,000 mcg (15 mL) PO QWEEK 3 weeks 03/10/25 1,000 mcg/15 mL oral liquid #45 mL clindamycin HCl 150 mg capsule 450 mg (3 x 150 mg) PO TID 7 days 03/14/25 (Cleocin HCl) #63 caps Allergies Allergy/AdvReac Type Severity Reaction Status Date / Time cetirizine (From Zyrtec) AdvReac Mild Nightmare Verified 03/14/25 00:55 lactose AdvReac Unknown Diarrhea Verified 03/14/25 00:55 Review of Systems Review of Systems: Yes all other systems are reviewed and are negative [facility] Past Medical History Medical History (Updated 03/14/25 @ 01:26 by Boni Dejesus PA-C) Vitamin B12 deficiency B12 deficiency Trapezius muscle strain Ileostomy dysfunction CASSIA (generalized anxiety disorder) Sinusitis Presence of ileostomy Annual physical exam Presence of IVC filter Transaminitis Hypertriglyceridemia Inflammatory bowel diseases (IBD) Ulcerative colitis Sleep disorder breathing Infection of lip Lumbar disc herniation with radiculopathy Right knee injury Injury of lumbar spine Infected nasal abrasion Lumbar radiculopathy, chronic HLD (hyperlipidemia) Constipation by delayed colonic transit Allergic rhinitis Obesity Colitis Zinc deficiency Vitamin D deficiency Chronic nasal congestion Nasal sinus congestion Obese Low libido GERD without esophagitis H/O deep venous thrombosis H/O acute pancreatitis Hypertriglyceridemia Surgical History History of ileostomy History of colectomy History of ileostomy History of resection of rectum Family History Family History Father CVD (cardiovascular disease) Mother Hypertension Diabetes Maternal Grandmother Liver cancer Maternal Grandfather CVD (cardiovascular disease) Family/Other Diabetes Social History Social History Household Members: Other Household Members Other:: girlfriend and children Housing: House Do you presently have visiting nurse or other home services: No Alcohol intake: never Patient Tobacco Use Status: Former Tobacco user e-Cigarette/Vaping Use: Never Used Second Hand Smoke Exposure: Yes Substance Use Type: Marijuana Advance Directives: No Advance Directives Information Provided: No service: No Current occupational status: employed Current occupation: [employer] Cognitive needs: No Hearing needs: No Vision needs: No Physical Exam Vital Signs: Vital Signs: Last Vital Signs Temp 98.2 F 03/14/25 00:49 Pulse 73 03/14/25 00:49 Resp 16 03/14/25 00:49 BP 164/94 H 03/14/25 00:49 Pulse Ox 99 03/14/25 00:49 O2 Del Method Room Air 03/14/25 00:49 BMI result Body Mass Index 30.1 CONSTITUTIONAL: The patient appears non-toxic, well nourished and in no acute distress. Vital signs as documented. HEAD: Atraumatic, normocephalic. EYES: EOMs grossly intact, pupils equal, conjunctiva clear, no exudate. ENT: Nares patent, no discharge. Airway patent, no audible stridor, visible mucosa is pink and moist without noted lesions. There is a fracture of the left lower 2nd bicuspid with visible loss of approximately 40% of the tooth with necrotic areas noted within the remaining tooth, no obvious drainable abscess. There was associated facial swelling of the left mandible, no trismus. NECK: trachea is midline, no obvious masses or gross abnormalities. CHEST: Symmetric movement, normal appearance. LUNGS: Non-labored work of breathing. CARDIAC: No evidence of hypoperfusion. ABDOMEN: Nondistended, no obvious injury. : Deferred. EXTREMITIES: Moves all extremities spontaneously without reported pain. No obvious injury or deformity noted. NEURO: Alert and oriented x3, CN II-XII appear grossly intact. Cerebellar Functioning grossly intact. Speech clear and appropriate. SKIN: Warm, dry, color appropriate. No rashes or lesions noted. Medications Administered Discontinued Medications Generic Name Dose Route Start Last Admin Trade Name Stuart PRN Reason Stop Dose Admin Clindamycin HCl 450 mg 03/14/25 01:15 03/14/25 01:22 Clindamycin Hcl 150 Mg Capsule PO 03/14/25 01:16 450 mg ONCE ONE Administration Lidocaine HCl 2 ml 03/14/25 01:15 03/14/25 01:23 Lidocaine Hcl 1 % Mpf 2 Ml Vial INFILTRATI 03/14/25 01:16 2 ml ONCE ONE Administration Medical Decision Making Medical Decision Making MDM Narrative: 1:22 AM 03/14/2025 (Esteban MASTERS): Patient is a 44-year-old male presenting to the ED for evaluation of dental pain which has been recurring over the past few months as he has failed to follow up with a dentist for definitive care. The patient was seen by the dentist today and scheduled for an extraction on the but presents to the ED due to worsening pain not relieved by Augmentin or any pain medications at home. Patient will be treated with clindamycin, and we will perform apical dental block for temporary relief. Patient has been advised he needs to follow up with his dentist for additional pain management. Admission/Observation Consideration of admission/observation: Escalation of care including admission/observation considered Prescription Management I considered prescription management with: Pain Medication and Antibiotic Procedures Nerve Block Nerve Block 1: Local Anesthetic: lidocaine 1% Amount of anesthesia used (mL): 2 Side: left Intraoral Nerve Block: other (Yennifer-apical) Procedure Successful: Yes Patient Tolerated Procedure: well and no complications Discharge Plan Discharge Clinical Impression: Dental caries, Fracture of tooth Patient Disposition: Home, Self-Care Instructions: Toothache (ED) Additional Instructions: Thank you for choosing [facility]'s Emergency Department for your care today. At this time there is no indication for admission to the hospital or continued ED observation, and it is safe to discharge you home. Your pain is related to your untreated dental fracture and infection. We have changed your antibiotic from Augmentin to clindamycin. Please stop taking Augmentin and began taking clindamycin as prescribed. You should take alternating (staggered) doses of ibuprofen 600mg and Tylenol 1000mg every 4 hours as needed for any additional pain while waiting for the antibiotic to take effect. The definitive care for your pain is your plan tooth extraction on the . You can also continue attempting saltwater gargles, tea bag applications, and Orajel. Please stay well hydrated and get plenty of rest. Please follow up with your dentist who is currently in charge of your care regarding any additional pain management. Please also follow up with your primary care physician for re-evaluation, additional management of your symptoms, and continued preventative care. If you do not have a primary care physician, please call the [facility] at [phone] to establish a new primary care physician. While waiting to establish your new primary care physician, you can call our Walk-in Care [facility] at [phone] for non-emergency needs. Please return to the emergency department if you develop a severe or sudden change in your symptoms, a fever over 100.4 that does not improve with Tylenol or Ibuprofen, recurrent vomiting, or any other new or worsening symptoms or concerns. Prescriptions: New clindamycin HCl [Cleocin HCl] 150 mg capsule 450 mg PO TID 7 Days Qty: 63 0RF No Action (DME) Skin Prep Wipes [facility] See Rx Instructions .Route Qty: 50 8RF Rx Instructions: As directed (DME) Stomahesive Paste Paste See Rx Instructions .Route Qty: 56.7 8RF Rx Instructions: As directed (DME) Premier Colostomy-Ileostomy 12 (2 07/03 ) mis See Rx Instructions .Route Qty: 5 8RF Rx Instructions: As directed gemfibrozil 600 mg tablet 600 mg PO BID 30 Days Qty: 60 3RF ibuprofen 800 mg tablet 800 mg PO Q8H PRN (Reason: pain) 10 Days Qty: 30 0RF niacin 250 mg tablet extended release 500 mg PO DAILY 90 Days Qty: 180 1RF mecobalamin (vitamin B12) 1,000 mcg tablet,chewable 1,000 mcg PO DAILY 90 Days Qty: 90 1RF metoprolol succinate 25 mg tablet extended release 24 hr 25 mg PO DAILY lorazepam 1 mg tablet 1 mg PO BEDTIME PRN loperamide [Imodium A-D] 2 mg capsule 2 mg PO Q4H PRN (Reason: loose stool) Qty: 60 0RF Rx Instructions: administer after each loose stool until symptoms controlled; do not exceed 8 mg per 24 hrs cyanocobalamin (vitamin B-12) 1,000 mcg/15 mL liquid 1,000 mcg PO QWEEK 21 Days Qty: 45 0RF Rx Instructions: 1000 mcg IM every week x 3 weeks, then continue 1000 mcg orally QD omeprazole 40 mg capsule,delayed release(DR/EC) 40 mg PO DAILY PRN (Reason: Acid Reflux) Qty: 90 2RF prednisone 20 mg tablet 40 mg PO DAILY 5 Days Qty: 10 0RF ipratropium bromide 42 mcg (0.06 %) spray,non-aerosol 2 spray intranasal TID 30 Days Qty: 15 0RF Rx Instructions: administer into each nostril ketoconazole 2 % cream 1 appl topical DAILY 28 Days Qty: 60 0RF Referrals: Dayton Gould PA-C [Primary Care Provider, Internal Medicine] Clinical Impression: Dental caries; Fracture of tooth Print Language: Bulgarian
[2025-03-14 00:49] VITALS: BP 164/94; PULSE 73; RESP 16; TEMP 36.8; O2SAT 99; BMI 30.1
--- OUTSIDE RECORDS SUMMARY | 2025-03-14 01:02 | XMS_ITS | Encounter Summary ---
Author Organization [facility] Address [address] [place] [address] [place] [phone] Phone Care Team Providers Care Car Loader Name Role Phone Dayton Gould Primary Care Provider + Encounter Details Date Type Department Care Team (Late st Contact Info) Description 09/12/2023 Procedure Pass [facility] [place] [place] [address] Social History Tobacco Use Types Packs/Day Years [...] 09/20/2026 9:00 AM EDT Office Visit [facility] [address] [place] [address] [place] [address] Bernice Jacome [address] [place] [address] [email or web address] documented as of this encounter Visit Diagnoses Not on filedocumented in this encounter Additional Health Concerns Infection Onset Date Last Indicated Resolved Time CoV-Risk Comment:Per note documentation 06/07/2024 06/07/2024 7:18 AM EST CoV-Risk Comment:Per note documentation 08/04/2024 08/04/2024 9:21 AM EST CDiff-Risk 08/04/2024 08/05/2024 08/05/2024 2:09 AM EST CoV-Risk 03/09/2025 03/09/2025 documented as of this encounter Care Teams Car Loader Relationship Specialty Start Date End Date Dayton Golud PA [address] [place] [address] PCP - General 10/05/20 documented as of this encounter Additional Source Comments The information contained in this document represents components of the legal health record. It is not the complete legal health record.[facility]
--- OUTSIDE RECORDS SUMMARY | 2025-03-14 01:02 | XMS_ITS | Encounter Summary ---
Author Organization [facility] Address [address] [facility] [address] [place] [address] Phone Care Team Providers Care Aquatic Instructor Name Role Phone Dayton Gould Primary Care Provider + Encounter Details Date Type Department Care Team (Late st Contact Info) Description 07/29/2022 Procedure Pass [facility] Scan - [address] [address] Social History Tobacco Use Types Packs/Day Years [...] 07/29/2022 3:45 PM Leola Flynn RN * Moon Suicide Severity Rating Scale (Screener/Recent Self-Report) Question [...] Description 09/20/2026 9:00 AM EDT Office Visit [facility] [address] [place] [address] Bernice Jacome [address] [facility] [place] [address] [email or web address] documented as of this encounter Visit [...] documented as of this encounter Care Teams Aquatic Instructor Relationship Specialty Start Date End Date Dayton Gould PA [address] [place] [address] PCP - General 10/05/20 documented as of this encounter Additional Source Comments The information contained in this document represents components of the legal health record. It is not the complete legal health record.[facility]
--- OUTSIDE RECORDS SUMMARY | 2025-03-14 01:02 | XMS_ITS | Patient Health Record ---
Author Organization [facility] Address [address] [place] [address] Care Team Providers Care Restorative Coordinator Name Role Phone Dayton Gould Primary [...] Problem Status W/U Status Risk Notes Problem [id number] Ileostomy status (Z93.2) Active confirmed Problem [id number] Ulcerative colit is without complications, unspecified location (K51.90) Active confirmed Problem Hypertriglyceridemia (732802595) Hypertriglyceridemia (E78.1) Active confirmed Problem Pancreatitis (36852786) Pancreatitis (K85.90) Active confirmed Problem [id number] Acute pancreatit is without infection or necrosis, unspecified pancreatitis type (K85.90) Active confirmed Problem 08919206 Ulcerative colit is, unspecified (K51.90) Active confirmed Plan Of Treatment Pending Test Test Name Order Date LIVER PROFILE 05/31/2022 Triglycerides 05/31/2022 Lipase 05/31/2022 Insurance Providers Payer Name Payer Address Payer Phone Subscriber Number Group Number Insured Name Patient Relationship to Insured Coverage Start Date Coverage End Date [facility] Plan [address] [address] [place], [place] [phone] [id number] KAMARI DELEON Self - patient is the [...]
--- OUTSIDE RECORDS SUMMARY | 2025-03-14 01:02 | XMS_ITS | Encounter Summary ---
Author Organization [facility] Address [address] [facility] [address] [place] [address] Phone Care Team Providers Care Button Grader Name Role Phone Dayton Gould Primary Care Provider + Encounter Details Date Type Department Care Team (Late st Contact Info) Description 03/10/2025 Procedure Pass [facility], Ct Scan - [facility] [address] [place] [address] Social History Tobacco Use Types Packs/Day Years [...] EDT Office Visit [facility] [address] [place] [address] [place] [address] Bernice Jacome [address] [place] [address], [address] [place] [address] [email or web address] documented as of this encounter Visit Diagnoses Not on filedocumented in this encounter Additional Health Concerns Infection Onset Date Last Indicated Resolved Time CoV-Risk 03/09/2025 03/09/2025 documented as of this encounter Care Teams Button Grader Relationship Specialty Start Date End Date Dayton Gould PA [address] [place] [address] PCP - General 10/05/20 documented as of this encounter Additional Source Comments The information contained in this document represents components of the legal health record. It is not the complete legal health record.[facility]
--- OUTSIDE RECORDS SUMMARY | 2025-03-14 01:02 | XMS_ITS | Encounter Summary ---
Author Organization [facility] Address [address] [facility] [address] [place] [address] Phone Care Team Providers Care Executive Relations Specialist Name Role Phone Dayton Gould Primary Care Provider + Encounter Details Date Type Department Care Team (Late st Contact Info) Description 12/15/2021 Procedure Pass [facility] Admitting Dept Virtual Department [address] [place] [address] Social History Tobacco Use Types Packs/Day Years [...] EDT Office Visit [facility] [place] [facility] [address] [place] [address] Bernice Jacome [address] [place] [address], [address] [place] [address] [email or web address] documented as of this encounter [...] documented as of this encounter Care Teams Executive Relations Specialist Relationship Specialty Start Date End Date Dayton Gould PA [address] [place] [address] PCP - General 10/05/20 documented as of this encounter Additional Source Comments The information contained in this document represents components of the legal health record. It is not the complete legal health record.[facility]
--- OUTSIDE RECORDS SUMMARY | 2025-03-14 01:02 | XMS_ITS | Encounter Summary ---
Author Organization [facility] Address [address] [facility] [address] [place] [address] Phone Care Team Providers Care Slitting Machine Feeder Name Role Phone Dayton Gould Primary Care Provider + Encounter Details Date Type Department Care Team (Late st Contact Info) Description 06/16/2023 Procedure Pass [facility], Ct Scan - [address] [address] Social History Tobacco Use Types Packs/Day Years [...] 06/16/2023 6:47 PM Leandro Mukherjee RN * [place] Suicide Severity Rating Scale (Screener/Recent Self-Report) Question [...] 09/20/2026 9:00 AM EDT Office Visit [facility] [address] [place] [address] Bernice Jacome [address] [place] [address], [address] [place] [address] [email or web address] documented as of this encounter Visit [...] documented as of this encounter Care Teams Slitting Machine Feeder Relationship Specialty Start Date End Date Dayton Gould PA [address] [place] [address] PCP - General 10/05/20 documented as of this encounter Additional Source Comments The information contained in this document represents components of the legal health record. It is not the complete legal health record.[facility]
--- OUTSIDE RECORDS SUMMARY | 2025-03-14 01:02 | XMS_ITS | Encounter Summary ---
Author Organization [facility] Address [address] [facility] [address] [place] [address] Phone Care Team Providers Care Educational Psychologist Name Role Phone Dayton Gould Primary Care Provider + Encounter Details Date Type Department Care Team (Late st Contact Info) Description 02/20/2025 Procedure Pass [facility], Ct Scan - [facility] [address] [place] [address] Social History Tobacco Use Types Packs/Day Years [...] EDT Office Visit [facility] [address] [place] [address] [place] [address] Bernice Jacome [address] [place] [address], [address] [place] [address] [email or web address] documented as of this encounter Visit Diagnoses Not on filedocumented in this encounter Additional Health Concerns Infection Onset Date Last Indicated Resolved Time CoV-Risk 03/09/2025 03/09/2025 documented as of this encounter Care Teams Educational Psychologist Relationship Specialty Start Date End Date Dayton Gould PA [address] [place] [address] PCP - General 10/05/20 documented as of this encounter Additional Source Comments The information contained in this document represents components of the legal health record. It is not the complete legal health record.[facility]
--- OUTSIDE RECORDS SUMMARY | 2025-03-14 01:03 | XMS_ITS | Encounter Summary ---
Author Organization [facility] Address [address] [place] [address] Phone Care Team Providers Care Cloth Boil Off Machine Operator Name Role Phone Dayton Gould Primary Care Provider + Encounter Details Date Type Department Care Team (Late st Contact Info) Description 06/07/2024 Procedure Pass [facility], Ct Scan - [facility] 30 [place] [address] Social History Tobacco Use Types Packs/Day Years [...] 06/08/2024 3:07 AM Tino Cooper RN * [place] Suicide Severity Rating Scale (Screener/Recent Self-Report) Question [...] 9:00 AM EDT Office Visit [facility] [address] [place] [address] Bernice Jacome [address] [place] [address], [address] [place] [address] [email or web address] documented as of [...] documented as of this encounter Care Teams Cloth Boil Off Machine Operator Relationship Specialty Start Date End Date Dayton Gould PA [address] [place] [address] PCP - General 10/05/20 documented as of this encounter Additional Source Comments The information contained in this document represents components of the legal health record. It is not the complete legal health record.[facility]
--- OUTSIDE RECORDS SUMMARY | 2025-03-14 01:03 | XMS_ITS | Encounter Summary ---
Author Organization [facility] Address [address] [facility] [address] [place] [address] Phone Care Team Providers Care Patient Account Analyst Name Role Phone Dayton Gould Primary Care Provider + Encounter Details Date Type Department Care Team (Late st Contact Info) Description 12/11/2021 Procedure Pass [facility], Ct Scan - [address] [address] Social History Tobacco Use Types Packs/Day Years [...] 5:39 AM EDT Yoli Higginbotham RN * [place] Suicide Severity Rating Scale (Screener/Recent Self-Report) Question [...] 09/20/2026 9:00 AM EDT Office Visit [facility] [address] [place] [address] Bernice Jacome [address] [facility], [address] [place] [address] [email or web address] documented as of this encounter Visit [...] documented as of this encounter Care Teams Patient Account Analyst Relationship Specialty Start Date End Date Dayton Gould PA [facility] [place] [address] PCP - General 10/05/20 documented as of this encounter Additional Source Comments The information contained in this document represents components of the legal health record. It is not the complete legal health record.[facility]
--- OUTSIDE RECORDS SUMMARY | 2025-03-14 01:03 | XMS_ITS | Clinical Summary ---
Author Organization [facility] Address [address] [facility] [address] [place] [address] Phone Care Team Providers Care Meter Engineer Name Role Phone Dayton Gould Primary [...] increase D5 NS infusion. Continue to monitor ylubf-ax-[id number] blood sugars with goals of eventually initiating [...] related pancreatitis and the last admitted to [facility] in September 2020 when triglyceride levels were greater than 4000 after stopping medication Was recently admitted to [facility] for recurrent pancreatitis. Was treated supportively and discharged home. He presented back to [facility] with recurrent abdominal pain, bloating, vomiting [...] low-fat diet today Regular GI is in [place]. Bright Follow over the day and [...] Department Care Team Description 03/10/2025 Procedure Pass [facility], Ct [address] [address] 03/09/2025 9:25 PM EDT - 03/10/2025 3:17 AM EDT Emergency [facility] [address] [place] [address] Breanne Locke MD Discharge Disposition: Home or Self Care 02/20/2025 12:26 AM EDT - 02/20/2025 5:53 AM EDT Emergency [facility] [address] [place] [address] Samir Dee, DO Discharge Disposition: Home or Self Care 02/20/2025 Procedure Pass [facility], Ct Scan [address] [address] from Last 3 Months Immunizations Immunization Administration [...] Office Visit [facility] [address] [place] [address] Bernice Jacome [address] [facility] [place] [address] [email or web address] Health Maintenance Due Date Last Done Comments [...] EDT) Heterophile Ab NON-REACTI VE NON-REACTI VE [facility] Blood (Blood) 03/09/2025 10: 35 PM EDT 03/09/2025 10:49 PM EDT Breanne Locke MD NON CULTURE MICROBIOLOGY Fin al Result Performing Organization Address [facility] de Phone Number [address] [address] * COVID Pandemic Respiratory Viral Order (PRO) (03/09/2025 10:23 PM EDT) Test Ordered Rapid COVID has been ordered [facility] Specimen Source/Description NASAL [facility] SARS-CoV 2 (COVID-19) PCR Not Detected Not Detected [facility] Comment: SARS-CoV-2 not detected Negative results do not preclude SARS-CoV-2 infection and should not be used as the sole basis for patient management decisions. Negative results must be combined with clinical observations, patient history, and epidemiological information. Other (Nasopharyngeal swab) 03/09/2025 10:23 PM EDT 03/09/2025 11:13 PM EDT Breanne Locke MD BODY FLUIDS AND STOOLS ORDER PREETHI Final Result Performing Organization Address [facility] de Phone Number [address] [address] * Urinalysis w/reflex Urine Culture (03/09/2025 9:32 PM EDT) COLOR Yellow Yellow [facility] CLARITY Clear [facility] GLUCOSE Negative Negative [facility] BILI Negative Negative [facility] KETONES Negative Negative [facility] SPECIFIC GRAVITY >1.030 1.005 - 1.030 [facility] BLOOD Negative Negative [facility] PH 6.0 5.0 - 8.0 [facility] Protein-UA Negative Negative [facility] NITRITE Negative Negative [facility] Leukocyte esterase, ur Negative Negative [facility] Urine (Urine) 03/09/2025 9:3 2 PM EDT 03/09/2025 9:54 PM EDT us Carlos Eduardo Cummins MD URINE ORDERABLES Final R esult Performing Organization Address [facility] Co de Phone Number [address] [address] * TSH with reflex (03/09/2025 6:44 PM EDT) TSH 0.70 0.27 - 4.20 uIU/mL [facility] 03/09/2025 6:44 PM EDT 03/09/2025 7:00 PM EDT us Carlos Eduardo Cummins MD LAB BLOOD ORDERABLES Fin al Result Performing Organization Address [facility] de Phone Number [address] [address] * LFTs (hepatic panel) (03/09/2025 6:44 PM EDT) Only the most recent of2 resultswithin the time period is included. ALKALINE PHOSPHATASE 101 39 - 117 U/L [facility] TOTAL BILIRUBIN 0.4 0.0 - 1.2 mg/dL [facility] DIRECT BILIRUBIN <0.1 0.0 - 0.2 mg/dL [facility] Bilirubin (Indirect) NOT CALCULATED 0 - 1.5 mg/dL [facility] AST 20 0 - 37 U/L [facility] ALT 16 0 - 40 U/L [facility] TOTAL PROTEIN 7.6 6.5 - 8.0 g/dL [facility] ALBUMIN 4.4 3.9 - 4.8 g/dL [facility] GLOBULIN 3.2 1 - 4.8 g/dL [facility] A/G Ratio 1.38 1.00 - 4.80 RATIO [facility] Blood 03/09/2025 6:44 PM EDT 03/09/2025 7:00 PM EDT us Carlos Eduardo Cummins MD LAB BLOOD ORDERABLES Fin al Result [facility] [address] [place] [address] * (ABNORMAL) CBC and differential (03/09/2025 6:44 PM EDT) Only the most recent of2 resultswithin the time period is included. WBC 9.01 4.00 - 11.00 K/uL [facility] RBC 5.37 4.50 - 5.90 M/uL [facility] HGB 14.1 13.5 - 17.5 g/dL [facility] HCT 42.1 41.0 - 53.0 % [facility] PLT 302 150 - 450 K/uL [facility] MCV 78.4(L) 80.0 - 100.0 fL [facility] MCH 26.3(L) 27.0 - 31.0 pg [facility] MCHC 33.5 32.0 - 36.0 g/dL [facility] RDW 13.3 11.5 - 14.5 % [facility] MPV 9.7 8.4 - 12.0 fL [facility] NRBC 0.00 0.00 /100 WBCs [facility] ABSOLUTE NRBC 0.00 0.00 K/uL [facility] DIFF METHOD Auto [facility] NEUTS 46.5(L) 48.0 - 76.0 % [facility] LYMPHS 36.3 18.0 - 41.0 % [facility] MONOS 13.3(H) 4.0 - 11.0 % [facility] EOS 3.0 0.0 - 5.0 % [facility] BASOS 0.3 0.0 - 1.5 % [facility] Granulocytes, immature (%) 0.6 0.0 - 0.9 % [facility] ABSOLUTE NEUTS 4.19 1.92 - 7.60 K/uL [facility] ABSOLUTE LYMPHS 3.27 0.72 - 4.10 K/uL [facility] ABSOLUTE MONOS 1.20(H) 0.16 - 1.10 K/uL [facility] ABSOLUTE EOS 0.27 0.00 - 0.50 K/uL [facility] ABSOLUTE BASOS 0.03 0.00 - 0.15 K/uL [facility] Granulocytes, immature 0.05 0.00 - 0.09 K/uL [facility] Blood 03/09/2025 6:44 PM EDT 03/09/2025 7:00 PM EDT us Carlos Eduardo Cummins MD LAB BLOOD ORDERABLES Fin al Result [address] [address] * C-Reactive Protein (03/09/2025 6:44 PM EDT) C REACTIVE PROTEIN <3.0 0.0 - 4.0 mg/L [facility] 03/09/2025 6:44 PM EDT 03/09/2025 7:00 PM EDT Carlos Eduardo Cummins MD LAB BLOOD ORDERABLES Fin al Result Performing Organization Address [facility] Co de Phone Number [address] [address] * Lipase (03/09/2025 6:44 PM EDT) Only the most recent of2 resultswithin the time period is included. LIPASE 52 16 - 63 U/L [facility] Blood 03/09/2025 6:44 PM EDT 03/09/2025 7:00 PM EDT Carlos Eduardo Cummins MD LAB BLOOD ORDERABLES Fin al Result Performing Organization Address [facility] Co de Phone Number [address] [address] * (ABNORMAL) Basic metabolic panel (03/09/2025 6:44 PM EDT) Only the most recent of2 resultswithin the time period is included. SODIUM 136 133 - 146 mmol/L [facility] CHLORIDE 104 96 - 108 mmol/L [facility] POTASSIUM 4.1 3.3 - 5.1 mmol/L [facility] Comment:Specimen slightly he molyzed, result may be falsely elevated. CO2 21 21 - 35 mmol/L [facility] BUN 11 6 - 19 mg/dL [facility] CREATININE 0.80 0.5 - 1.5 mg/dL [facility] GLUCOSE 116(H) 70 - 99 mg/dL [facility] CALCIUM 9.4 8.4 - 10.3 mg/dL [facility] EGFR 112 >59 mL/min/1.7 3m2 [facility] Comment:Estimated glomerular filtration rate calculated using the CKD-EPI refit equation. ANION GAP 15 10 - 20 mmol/L [facility] Blood 03/09/2025 6:44 PM EDT 03/09/2025 7:00 PM EDT us Carlos Eduardo Cummins MD LAB BLOOD ORDERABLES Fin al Result [address] [address] * CT ABDOMEN/PELVIS WITH CONTRAST (02/20/2025 2:46 [...] HS Gen5 <6 0 - 14 ng/L [facility] Blood 02/19/2025 11:0 2 PM EDT 02/19/2025 11:12 PM EDT Elias Gotti MD LAB BLOOD ORDERAB LES Final Result Performing Organization Address [facility]/ZIP Co de Phone Number [facility] [address] [place] [address] * ECG 12-LEAD (02/19/2025 9:27 PM EDT) Ventricular Rate EKG/MIN 85 BPM [facility] Atrial Rate 85 BPM [facility] NE Interval 144 ms [facility] QRS Duration 82 ms [facility] QT Interval 382 ms [facility] QTC Interval 454 ms [facility] P Sabina 56 degrees [facility] R Wave Sabina 23 degrees [facility] T Wave Sabina 11 degrees [facility] 02/19/2025 9:27 PM EDT 02/20/2025 11:38 PM EDT Narrative [facility] - 02/20/2025 11:38 PM EDT Normal sinus rhythm Possible Left atrial enlargement Nonspecific T wave abnormality Abnormal ECG When compared with ECG of 30-Nov-2024 22:03, No significant change was found Confirmed by iTmothy [place] ([id number]) on 02/20/2025 11:38:54 PM us Elias Gotti MD ECG ORDERABLES F inal Result Performing Organization Address [facility] Co de Phone Number [email or web address] * (ABNORMAL) Lipid panel (02/29/2024 5:05 PM EDT) HDL 21 mg/dL [facility] Comment: Interpretation <40 mg/dL: Low HDL cholesterol (major risk factor for CHD) Greater than or equal to 60 mg/dL: High HDL cholesterol ( negative risk factor for CHD) HDL - cholesterol is affected by a number of factors, e.g. smoking, excerise, hormones, sex and age. CHOLESTEROL 764(H) 0 - 240 mg/dL [facility] TRIGLYCERIDES 3,858(H) 30 - 160 mg/dL [facility] LDL NOT CALCULATED 50 - 129 mg/dL [facility] Comment: Unable to calculate due to elevated TRIG of greater than 400. A measured LDL will be performed. CARDIAC RISK RATIO 36.4(H) 3.4 - 5.0 [facility] Blood 02/29/2024 5:05 PM EDT 02/29/2024 5:07 PM EDT us Alexander Foster PA-C LAB BLOOD ORDERABLES Final Re sult [facility] [address] [place] [address] from Last 3 Months or Most Recently Relevant to Health Maintenance Additional Health Concerns Infection Onset Date Last Indicated CoV-Risk 03/09/2025 03/09/[address] [place]essa [place] [id number] [facility] [place] [facility] [address] [place] [id number] [facility] [place] [facility] [place] [facility] [place] [facility] [place] [facility] [place] [facility] [place] [facility] [address] [place] [id number] [facility] [place] [facility] [place] [facility] Advance Directives For more information, please contact: [phone] (9AM - 5PM [facility], Sunday-Sunday) Documents on File Type Date Recorded Patient Piano Refinisher Expl anation Healthcare Proxy 03/11/2024 4:11 PM [...] presumed on basis of a Care Teams Meter Engineer Relationship Specialty Start Date End Date Dayton Gould PA [address] [place] [address] PCP - General 10/05/20 Additional Source Comments The information contained in this document represents components of the legal health record. It is not the complete legal health record.[facility]
--- OUTSIDE RECORDS SUMMARY | 2025-03-14 01:03 | XMS_ITS | Encounter Summary ---
Author Organization [facility] Address [address] [facility] [address] [place] [address] Phone Care Team Providers Care Research Director Name Role Phone Dayton Gould Primary Care Provider + Encounter Details Date Type Department Care Team (Late st Contact Info) Description 08/24/2024 Procedure Pass [facility], Ct Scan - [facility] [address] [place] [address] Social History Tobacco Use Types Packs/Day Years [...] EDT Office Visit [facility] [address] [place] [address] [place] [address] Bernice Jacome [address] [place] [address], [address] [place] [address] [email or web address] documented as of this encounter Visit Diagnoses Not on filedocumented in this encounter Additional Health Concerns Infection Onset Date Last Indicated Resolved Time CoV-Risk 03/09/2025 03/09/2025 documented as of this encounter Care Teams Research Director Relationship Specialty Start Date End Date Dayton Gould PA [address] [place] [address] PCP - General 10/05/20 documented as of this encounter Additional Source Comments The information contained in this document represents components of the legal health record. It is not the complete legal health record.[facility]
--- OUTSIDE RECORDS SUMMARY | 2025-03-14 01:03 | XMS_ITS | Clinical Summary ---
Author Organization [facility] Address [address] [place] [address] Care Team Providers Care Split Leather Department Supervisor Name Role Phone Unavailable Primary Care Provider [...] COVID-19 Vaccine ( - 2023-2 5 season) 2025 Pneumococcal Vaccine: Pediat jeremiah (0-5 Years) and At-Risk Patients (6 to 49 Years) Aged Out No longer eligible b ased on patient's age to complete this topic
--- OUTSIDE RECORDS SUMMARY | 2025-03-14 01:03 | XMS_ITS | Encounter Summary ---
Author Organization [facility] Address [address] [place] [address] Phone Care Team Providers Care Coding File Clerk Name Role Phone Dayton Gould Primary Care Provider + Encounter Details Date Type Department Care Team (Late st Contact Info) Description 06/09/2024 Procedure Pass [facility], Ct Scan - [facility] [address] [place] [address] Social History Tobacco Use Types Packs/Day Years [...] 09/20/2026 9:00 AM EDT Office Visit [facility] [address] [place] [address] Bernice Jacome [address] [facility], [address] [place] [address] [email or web address] documented as of this encounter Visit Diagnoses Not on filedocumented in this encounter Additional Health Concerns Infection Onset Date Last Indicated Resolved Time CoV-Risk Comment:Per note documentation 08/04/2024 08/04/2024 9:21 AM EST CDiff-Risk 08/04/2024 08/05/2024 08/05/2024 2:09 AM EST CoV-Risk 03/09/2025 03/09/2025 documented as of this encounter Care Teams Coding File Clerk Relationship Specialty Start Date End Date Dayton Gould PA [facility] [place] [address] PCP - General 10/05/20 documented as of this encounter Additional Source Comments The information contained in this document represents components of the legal health record. It is not the complete legal health record.[facility]
--- OUTSIDE RECORDS SUMMARY | 2025-03-14 01:03 | XMS_ITS | Encounter Summary ---
Author Organization [facility] Address [address] [facility] [address] [place] [address] Phone Care Team Providers Care Automobile Service Writer Name Role Phone Dayton Gould Primary Care Provider + Encounter Details Date Type Department Care Team (Late st Contact Info) Description 12/14/2021 Procedure Pass [facility], [address] [address] Social History Tobacco Use Types Packs/Day Years [...] Description 09/20/2026 9:00 AM EDT Office Visit [address] [address] Bernice Jacome [address] [place] [address], [address] [place] [address] [email or web address] documented as of this encounter Visit [...] documented as of this encounter Care Teams Automobile Service Writer Relationship Specialty Start Date End Date Dayton Gould PA [address] [place] [address] PCP - General 10/05/20 documented as of this encounter Additional Source Comments The information contained in this document represents components of the legal health record. It is not the complete legal health record.[facility]
--- OUTSIDE RECORDS SUMMARY | 2025-03-14 01:03 | XMS_ITS | Clinical Summary ---
Author Organization [employer] Address [address] [facility] 7 [place] [address] Care Team Providers Care Chisel Mortiser Operator Name Role Phone Unavailable Primary Care Provider Unavailabl e Allergies No known active allergies Medications gemfibrozil (Lopid) 600 MG tablet Take 600 mg by mouth 2 times daily. 06/13/2024 Active niacin ER 250 MG ER tablet Take 2 tablets by mouth in the morning. 12/10/2023 Active amoxicillin-cla vulanate (Augmentin) 875-125 MG tablet Take 1 tablet by mouth 2 times daily. 02/25/2025 Active Active Problems Problem Noted Date Diagnosed Date Acute pancreatitis without infection or necrosis 10/05/2020 Class 1 obesity in adult 10/05/2020 GERD (gastroesophageal reflux disease) History of DVT (deep vein thrombosis) 10/05/2020 Hypertriglyceridemia 10/05/[address] 10/05/2020 Microcytic anemia 10/05/2020 Presence of IVC filter 10/05/2020 Encounters Date Type Department Care Team Description 03/13/2025 3:30 PM EDT Office Visit [facility] [address] [place], [place] [id number] Jovon Doss 03/11/2025 3:00 PM EDT Office Visit [facility] [address] [place] [address] Austin Simmons Dental caries (Primary Dx); Pain, dental from Last 3 Months Social History Tobacco Use Types Packs/Day Years [...] Orientation Straight 03/11/2025 1: 03 PM EDT Last Filed Vital Signs Vital Sign Reading Time Taken Comments Blood Pressure 134/88 03/11/2025 3:08 PM EDT Pulse - - Temperature - - Respiratory Rate - - Oxygen Saturation - - Inhaled Oxygen Concentration - - Weight - - Height - - Body Mass Index - - Plan of Treatment Upcoming Encounters Date Type Department Care Team (Late st Contact Info) Description 03/19/2025 8:00 AM EDT Office Visit [facility] ADULT [facility] [address] [place] [address] Health Maintenance Due Date Last Done Comments Depression Screening 1980 HIV Screening 1980 Lipid Panel 1980 SDOH Screening 1980 Disability Screening 1980 Alcohol/Substance Use Screening 1992 Family Planning (PISQ) 1995 HPV Vaccines (1 - Male 3-dos e series) 1995 Hepatitis C Screening 1998 Hepatitis B Vaccines (1 of 3 - 19+ 3-dose series) 1999 Dental Oral Exam 03/24/2018 09/20/2017 Dental Prophylaxis 03/24/2018 09/20/2017 Dental X-Ray: Full Mouth 09/21/2020 09/20/2017 DTaP/Tdap/Td Vaccines (2 - T d or Tdap) 10/27/2024 10/27/2014 COVID-19 Vaccine (2 - 2024-2 6 season) 2025 11/01/2020 Influenza Vaccine (#1) 2025 , 02/20/2017 Dental X-Ray: Bitewings 03/12/2026 03/11/20, 09/20/2017 Tobacco Screening 03/13/2026 03/13/2025 Zoster Vaccines (1 of 2) 2030 RSV Patients and Patients Aged 60 years or older (1 - 1-dose 75+ series) 2055 Pneumococcal Vaccine: Pediatrics (0 to 5 Years) and At-Risk Patients (6 to 49) Years Aged Out 09/02/2015 No longer eligible b ased on patient's age to complete this topic HIB Vaccines Aged Out No longer eligi ble based on patient's age to complete this topic Hepatitis A Vaccines Aged Out No long er eligible based on patient's age to complete this topic IPV Vaccines Aged Out No longer eligi ble based on patient's age to complete this topic Meningococcal B Vaccine Aged Out No l onger eligible based on patient's age to complete this topic Meningococcal Vaccine Aged Out No mely dimas eligible based on patient's age to complete this topic RSV under 20 months Aged Out No longe r eligible based on patient's age to complete this topic Rotavirus Vaccines Aged Out No longer eligible based on patient's age to complete this topic Procedures Procedure Name Priority Date/Time Associated Diagnosis Comments BITEWING - SINGLE RADIOGRAPHIC IMAGE Routine 03/11/2025 3:00 PM EDT 19 INTRAORAL - PERIAPICAL FIRST RADIOGRAPHIC IMAGE Routine 03/11/2025 3:00 PM EDT PALLIATIVE (EMERGENCY) TREATMENT OF DENTAL PAIN - MINOR PROCEDURE Routine 03/11/2025 3:00 PM EDT PROPHYLAXIS - ADULT Routine 09/20/2017 1 2:00 AM EDT INTRAORAL - COMPLETE SERIES OF RADIOGRAPHIC IMAGES Routine 09/20/2017 12:00 AM EDT COMPREHENSIVE ORAL EVALUATION - NEW OR ESTABLISHED PATIENT Routine 09/20/2017 12:00 AM EDT from Last 3 Months or Most Recently Relevant to Health Maintenance Insurance [employer] [place] [id number] DENTAL - HSN PARTIAL (MEDICAID)
[2025-03-14] MEDS: Lidocaine HCl 1 % MPF 2 ML VIAL INFILTRATI (01:23)
[2025-03-14 01:52] VITALS: BP 175/97; PULSE 64; RESP 16; TEMP 36.8; O2SAT 98
[2025-03-14 02:00] VITALS: BP 175/97; PULSE 64; RESP 16; TEMP 36.8; O2SAT 98
== END 2025-03-14 02:01 | disposition home or self-care (01) ==
PROVIDERS: Emergency Provider Student in an Organized Health Care Education/Training Program; PCP Physician Assistant
DX: K08.89 Other specified disorders of teeth and supporting structures (principal); S02.5XXA Fracture of tooth (traumatic), initial encounter for closed fracture; X58.XXXA Exposure to other specified factors, initial encounter; Y93.9 Activity, unspecified; Y92.9 Unspecified place or not applicable; Y99.9 Unspecified external cause status
CPT/HCPCS: 64450; 99282; 99284; J2003

== ENCOUNTER 2025-03-20 09:37 | Outpatient (AMB) | payer OTHER, SELFPAY ==
--- OUTSIDE RECORDS SUMMARY | 2025-03-19 08:00 | XMS_ITS | Encounter Summary ---
Author Organization [employer] Address [address] [facility] [address] [place] [address] Care Team Providers Care Risk Intern Name Role Phone Unavailable Primary Care Provider Unavailabl e Reason for Visit * Reason Comments Extraction Encounter Details Date Type Department Care Team (Late st Contact Info) Description 03/19/2025 8:00 AM EDT Office Visit [facility] ADULT [facility] [address] [place] [address] Austin Simmons Social History Tobacco Use Types Packs/Day Years [...] Sign Reading Time Taken Comments Blood Pressure 134/90 03/19/2025 8:09 AM EDT Pulse 77 03/19/2025 8:09 AM EDT Temperature - - Respiratory Rate - - Oxygen Saturation - - Inhaled Oxygen Concentration - - Weight - - Height - - Body Mass Index - - documented in this encounter Progress Notes * Austin Simmons - 03/19/2025 8:00 AM EDT Extraction Procedure Note Procedure: Dental extraction Performed by: Austin Simmons Procedure Details 19 [id number] - EXTRACTION, ERUPTED TOOTH OR EXPOSED ROOT (ELEVATION/FORCEPS REMOVAL) Diagnosis: The following teeth were extracted due to non-restorable caries causing pain: #19 Consent Obtained: The risks, benefits, indications, potential complications, and alternatives were explained to the patient and informed consent was obtained with good understanding. Description of procedure: Local anesthetic was administered consisting of 6.8 cc lidocaine HCL 2% with 1:100,000 epinephrine via KINA block, Long buccal nerve block, infiltration, and PDL injection. Routine extraction of tooth/teeth #19 was performed with elevator and forceps without complications. Gel-foam was packed in the socket. Gauze was placed and hemostasis was observed. Pt tolerated procedure well. Post-op instructions were reviewed with the patient. Complications: None Disposition: Discharged home with recommendations of soft diet for 2-3 days and post-op care instructions. Pain medications and antibiotics as indicated. Instructed patient to finish course of antibiotics. Acetaminophen was prescribed for pain. NV: EXT #30 Cosigned by Aidan Tamayo DDS at 03/19/2025 10:10 AM EDT Associated attestation - Aidan Tamayo DDS - 03/19/2025 10:[address] Roni Naidu documented in this encounter Plan of Treatment Upcoming Encounters Date Type Department Care Team (Late st Contact Info) Description 03/26/2025 8:00 AM EDT Office Visit [facility] ADULT [facility] [address] [place] [address] documented as of this encounter Procedures Procedure Name Priority Date/Time Associated Diagnosis Comments 19 EXTRACTION, ERUPTED TOOTH OR EXPOSED ROOT (ELEVATION/FORCEPS REMOVAL) Routine 03/19/2025 8:00 AM EDT documented in this encounter Visit Diagnoses Not on filedocumented in this encounter
--- NOTE | 2025-03-20 09:52 | AM.OFFVISNUR ---
Intake Visit Reasons: B12 Shot Allergies cetirizine (From yrte) Adverse Reaction (Mild, Verified 03/14/25 00:55) Nightmare lactose Adverse Reaction (Unknown, Verified 03/14/25 00:55) Diarrhea Office Meds cyanocobalamin (vitamin B-12) 1,000 mcg/mL injection solution Performing Provider: Dayton Gould PA-C Performing Location: [facility] Administered by: Anju Monroe RN on 03/20/25 09:52 Dose Route Admin Location Dispensed Lot Number Expiration Date [facility] Public Policy Mediator 1,000 mcg IM 1 mL [id number] 05/31/26 18749-782-64 Scour Prevention Total Dispensed Waste 1 mL 0 % Assessment & Plan Assessment & Plan Orders: Orders AMB Vitamin B12 Injection Patient Supplied Today E53.8 - Deficiency of other specified B group vitamins Coding
--- OUTSIDE RECORDS SUMMARY | 2025-03-20 10:12 | XMS_ITS | Encounter Summary ---
Author Organization [facility] Address [address] [facility] [address] [place] [address] Phone Care Team Providers Care Bottle Gauger Name Role Phone Dayton Gould Primary Care Provider + Encounter Details Date Type Department Care Team (Late st Contact Info) Description 06/16/2023 Procedure Pass [facility], Ct Scan - [address] [address] Social History Tobacco Use Types Packs/Day Years [...] 06/16/2023 6:47 PM Leandro Mukherjee RN * [place] Suicide Severity Rating Scale (Screener/Recent Self-Report) Question [...] 09/20/2026 9:00 AM EDT Office Visit [facility] [address] [place] [address] Bernice Jacome [address] [place] [address], [address] [place] [address] [email or web address] [...] 08/05/2024 2:09 AM EST CoV-Risk 03/09/2025 03/09/2025 03/20/2025 1:21 AM EDT documented as of this encounter Care Teams Bottle Gauger Relationship Specialty Start Date End Date Dayton Gould PA [address] [place] [address] PCP - General 10/05/20 documented as of this encounter Additional Source Comments The information contained in this document represents components of the legal health record. It is not the complete legal health record.[facility]
--- OUTSIDE RECORDS SUMMARY | 2025-03-20 10:12 | XMS_ITS | Encounter Summary ---
Author Organization [facility] Address [address] [facility] [address] [place] [address] Phone Care Team Providers Care Bathroom Tiling Professional Name Role Phone Dayton Gould Primary Care Provider + Encounter Details Date Type Department Care Team (Late st Contact Info) Description 12/15/2021 Procedure Pass [facility] Admitting Dept Virtual Department [address] [place] [address] Social History Tobacco Use Types Packs/Day Years [...] [facility] [address] [place] [address] Bernice Jacome [address] [place] [address], [address] [place] [address] [email or web address] documented as of this encounter [...] documented as of this encounter Care Teams Bathroom Tiling Professional Relationship Specialty Start Date End Date Dayton Gould PA [address] [place] [address] PCP - General 10/05/20 documented as of this encounter Additional Source Comments The information contained in this document represents components of the legal health record. It is not the complete legal health record.[facility]
--- OUTSIDE RECORDS SUMMARY | 2025-03-20 10:12 | XMS_ITS | Encounter Summary ---
Author Organization [facility] Address [address] [facility] [address] [place] [address] Phone Care Team Providers Care Overlock Hemmer Name Role Phone Dayton Gould Primary Care Provider + Encounter Details Date Type Department Care Team (Late st Contact Info) Description 02/20/2025 Procedure Pass [facility], Ct Scan - [facility] [address] [place] [address] Social History Tobacco Use Types Packs/Day Years [...] EDT Office Visit [facility] [address] [place] [address] [place] [address] Bernice Jacome [address] [place] [address], [address] [place] [address] [email or web address] documented as of this encounter Visit Diagnoses Not on filedocumented in this encounter Additional Health Concerns Infection Onset Date Last Indicated Resolved Time CoV-Risk 03/09/2025 03/09/2025 03/20/2025 1:21 AM EDT documented as of this encounter Care Teams Overlock Hemmer Relationship Specialty Start Date End Date Dayton Gould PA [address] [place] [address] PCP - General 10/05/20 documented as of this encounter Additional Source Comments The information contained in this document represents components of the legal health record. It is not the complete legal health record.[facility]
--- OUTSIDE RECORDS SUMMARY | 2025-03-20 10:12 | XMS_ITS | Encounter Summary ---
Author Organization [facility] Address [address] [place] [address] [place] [address] Phone Care Team Providers Care Aircraft Refueller Name Role Phone Dayton Gould Primary Care Provider + Encounter Details Date Type Department Care Team (Late st Contact Info) Description 09/12/2023 Procedure Pass [facility] [place] [address] Social History Tobacco Use Types Packs/Day Years [...] 09/20/2026 9:00 AM EDT Office Visit [facility] [address] [place] [address] [place] [address] Bernice Jacome [address], [address] [place] [address] [email or web address] documented as of this encounter Visit Diagnoses Not on filedocumented in this encounter Additional Health Concerns Infection Onset Date Last Indicated Resolved Time CoV-Risk Comment:Per note documentation 06/07/2024 06/07/2024 7:18 AM EST CoV-Risk Comment:Per note documentation 08/04/2024 08/04/2024 9:21 AM EST CDiff-Risk 08/04/2024 08/05/2024 08/05/2024 2:09 AM EST CoV-Risk 03/09/2025 03/09/2025 03/20/2025 1:21 AM EDT documented as of this encounter Care Teams Aircraft Refueller Relationship Specialty Start Date End Date Dayton Gould PA [address] [place] [address] PCP - General 10/05/20 documented as of this encounter Additional Source Comments The information contained in this document represents components of the legal health record. It is not the complete legal health record.[facility]
--- OUTSIDE RECORDS SUMMARY | 2025-03-20 10:12 | XMS_ITS | Encounter Summary ---
Author Organization [facility] Address [address] [facility] [address] [place] [address] Phone Care Team Providers Care Hand Sprayer Name Role Phone Dayton Gould Primary Care Provider + Encounter Details Date Type Department Care Team (Late st Contact Info) Description 03/10/2025 Procedure Pass [facility], Ct Scan - [facility] [address] [place] [address] Social History Tobacco Use Types Packs/Day Years [...] EDT Office Visit [facility] [address] [place] [address] [place] [address] Bernice Jacome [address] [place] [address], [address] [place] [address] [email or web address] documented as of this encounter Visit Diagnoses Not on filedocumented in this encounter Additional Health Concerns Infection Onset Date Last Indicated Resolved Time CoV-Risk 03/09/2025 03/09/2025 03/20/2025 1:21 AM EDT documented as of this encounter Care Teams Hand Sprayer Relationship Specialty Start Date End Date Datyon Gould PA [address] [place] [address] PCP - General 10/05/20 documented as of this encounter Additional Source Comments The information contained in this document represents components of the legal health record. It is not the complete legal health record.[facility]
--- OUTSIDE RECORDS SUMMARY | 2025-03-20 10:12 | XMS_ITS | Encounter Summary ---
Author Organization [facility] Address [address] [facility] [address] [place] [address] Phone Care Team Providers Care Car Designer Name Role Phone Dayton Gould Primary Care Provider + Encounter Details Date Type Department Care Team (Late st Contact Info) Description 07/29/2022 Procedure Pass [facility], Ct Scan - [address] [address] Social History Tobacco Use Types Packs/Day Years [...] 07/29/2022 3:45 PM Leola Flynn RN * [place] Suicide Severity Rating Scale (Screener/Recent Self-Report) Question Answer Date of Assessment Author 1. Wish to be (Past 1 Month) No 023 3:45 PM Leola Flynn, TAI 2. Non-Specific Active Suici william Thoughts (Past 1 Month) No 07/29/2022 3:45 PM Leola Flynn, TAI 6. Suicidal Behavior (Lifetime) No 3:45 PM EST Leola Hinkle RN documented as of this encounter Plan of Treatment Upcoming Encounters Date Type Department Care Team (Late st Contact Info) Description 09/20/2026 9:00 AM EDT Office Visit [facility] [address] [place] [address] Bernice Jacome [address] [facility], [address] [place] [address] [email or web address] documented as [...] as of this encounter Care Teams Car Designer Relationship Specialty Start Date End Date Dayton Gould PA [address] [place] [address] PCP - General 10/05/20 documented as of this encounter Additional Source Comments The information contained in this document represents components of the legal health record. It is not the complete legal health record.[facility]
--- OUTSIDE RECORDS SUMMARY | 2025-03-20 10:13 | XMS_ITS | Clinical Summary ---
Author Organization [facility] Address [address] [facility] [address] [place] [address] Phone Care Team Providers Care Frozen Yogurt Maker Name Role Phone Dayton Gould Primary Care [...] increase D5 NS infusion. Continue to monitor [id number]-[id number]-ptym blood sugars with goals of eventually initiating [...] related pancreatitis and the last admitted to [facility] in September 2020 when triglyceride levels were greater than 4000 after stopping medication Was recently admitted to [facility] for recurrent pancreatitis. Was treated supportively and discharged home. He presented back to [facility] with recurrent abdominal pain, bloating, [...] low-fat diet today Regular GI is in [place] Dr. Bright Follow over the day and [...] Department Care Team Description 03/10/2025 Procedure Pass [facility], Ct [address] [address] 03/09/2025 9:25 PM EDT - 03/10/2025 3:17 AM EDT Emergency [facility] [address] [place] [address] Breanne Locke MD Discharge Disposition: Home or Self Care 02/20/2025 12:26 AM EDT - 02/20/2025 5:53 AM EDT Emergency [facility] Emergency [address] [place] [address] Samir Dee, DO Discharge Disposition: Home or Self Care 02/20/2025 Procedure Pass [facility], Ct Scan [address] [address] from Last 3 Months Immunizations Immunization Administration [...] EDT Office Visit [facility] Medicine [address] [place] [address] Bernice Jacome [address] [facility], [address] [place] [address] [email or web address] Health Maintenance Due Date Last Done Comments DEPRESSION SCREENING 1992 SMOKING Hx and SMOKELESS TOBACCO SCREENING 1993 HEPATITIS C SCREENING 1998 HIV ONE-TIME SCREENING (18-65 YEARS) 1998 Adult Td,Tdap Booster 10/27/2024 10/27/2014 BLOOD PRESSURE 01/05/2025 07/08/2024 INFLUENZA VACCINE (#1) 2025 05/16/2019, 2016 COVID-19 VACCINE ( season) 2025 11/01/2020 COLOGUARD 2025 COLONOSCOPY 2025 COLORECTAL CANCER SCREENING 2025 FIT TEST 2025 FOBT 2025 SIGMOIDOSCOPY 2025 VIRTUAL COLONOSCOPY 2025 SCREENING FOR DIABETES 03/09/2028 03/09/2025, 2023 LIPID [...] EDT) Heterophile Ab NON-REACTI VE NON-REACTI VE [facility] Blood (Blood) 03/09/2025 10: 35 PM EDT 03/09/2025 10:49 PM EDT Breanne Locke MD NON CULTURE MICROBIOLOGY Fin al Result Performing Organization Address [facility] Co de Phone Number [address] [address] * COVID Pandemic Respiratory Viral Order (PRO) (03/09/2025 10:23 PM EDT) Test Ordered Rapid COVID has been ordered [facility] Specimen Source/Description NASAL [facility] SARS-CoV 2 (COVID-19) PCR Not Detected Not Detected [facility] Comment: SARS-CoV-2 not detected Negative results do not preclude SARS-CoV-2 infection and should not be used as the sole basis for patient management decisions. Negative results must be combined with clinical observations, patient history, and epidemiological information. Other (Nasopharyngeal swab) 03/09/2025 10:23 PM EDT 03/09/2025 11:13 PM EDT Breanne Locke MD BODY FLUIDS AND STOOLS ORDER PREETHI Final Result Performing Organization Address [facility] Co de Phone Number [address] [address] * Urinalysis w/reflex Urine Culture (03/09/2025 9:32 PM EDT) COLOR Yellow Yellow [facility] CLARITY Clear [facility] GLUCOSE Negative Negative [facility] BILI Negative Negative [facility] KETONES Negative Negative [facility] SPECIFIC GRAVITY >1.030 1.005 - 1.030 [facility] BLOOD Negative Negative [facility] PH 6.0 5.0 - 8.0 [facility] Protein-UA Negative Negative [facility] NITRITE Negative Negative [facility] Leukocyte esterase, ur Negative Negative [facility] Urine (Urine) 03/09/2025 9:3 2 PM EDT 03/09/2025 9:54 PM EDT Carlos Eduardo Cummins MD URINE ORDERABLES Final R esult Performing Organization Address [facility]/ZIP Co de Phone Number [address] [address] * TSH with reflex (03/09/2025 6:44 PM EDT) TSH 0.70 0.27 - 4.20 uIU/mL [facility] 03/09/2025 6:44 PM EDT 03/09/2025 7:00 PM EDT Carlos Eduardo Cummins MD LAB BLOOD ORDERABLES Fin al Result Performing Organization Address [facility] Co de Phone Number [address] [address] * LFTs (hepatic panel) (03/09/2025 6:44 PM EDT) Only the most recent of2 resultswithin the time period is included. ALKALINE PHOSPHATASE 101 39 - 117 U/L [facility] TOTAL BILIRUBIN 0.4 0.0 - 1.2 mg/dL [facility] DIRECT BILIRUBIN <0.1 0.0 - 0.2 mg/dL [facility] Bilirubin (Indirect) NOT CALCULATED 0 - 1.5 mg/dL [facility] AST 20 0 - 37 U/L [facility] ALT 16 0 - 40 U/L [facility] TOTAL PROTEIN 7.6 6.5 - 8.0 g/dL [facility] ALBUMIN 4.4 3.9 - 4.8 g/dL [facility] GLOBULIN 3.2 1 - 4.8 g/dL [facility] A/G Ratio 1.38 1.00 - 4.80 RATIO [facility] Blood 03/09/2025 6:44 PM EDT 03/09/2025 7:00 PM EDT us Carlos Eduardo Cummins MD LAB BLOOD ORDERABLES Fin al Result [address] [address] * (ABNORMAL) CBC and differential (03/09/2025 6:44 PM EDT) Only the most recent of2 resultswithin the time period is included. WBC 9.01 4.00 - 11.00 K/uL [facility] RBC 5.37 4.50 - 5.90 M/uL [facility] HGB 14.1 13.5 - 17.5 g/dL [facility] HCT 42.1 41.0 - 53.0 % [facility] PLT 302 150 - 450 K/uL [facility] MCV 78.4(L) 80.0 - 100.0 fL [facility] MCH 26.3(L) 27.0 - 31.0 pg [facility] MCHC 33.5 32.0 - 36.0 g/dL [facility] RDW 13.3 11.5 - 14.5 % [facility] MPV 9.7 8.4 - 12.0 fL [facility] NRBC 0.00 0.00 /100 WBCs [facility] ABSOLUTE NRBC 0.00 0.00 K/uL [facility] DIFF METHOD Auto [facility] NEUTS 46.5(L) 48.0 - 76.0 % [facility] LYMPHS 36.3 18.0 - 41.0 % [facility] MONOS 13.3(H) 4.0 - 11.0 % [facility] EOS 3.0 0.0 - 5.0 % [facility] BASOS 0.3 0.0 - 1.5 % [facility] Granulocytes, immature (%) 0.6 0.0 - 0.9 % [facility] ABSOLUTE NEUTS 4.19 1.92 - 7.60 K/uL [facility] ABSOLUTE LYMPHS 3.27 0.72 - 4.10 K/uL [facility] ABSOLUTE MONOS 1.20(H) 0.16 - 1.10 K/uL [facility] ABSOLUTE EOS 0.27 0.00 - 0.50 K/uL [facility] ABSOLUTE BASOS 0.03 0.00 - 0.15 K/uL [facility] Granulocytes, immature 0.05 0.00 - 0.09 K/uL [facility] Blood 03/09/2025 6:44 PM EDT 03/09/2025 7:00 PM EDT us Carlos Eduardo Cummins MD LAB BLOOD ORDERABLES Fin al Result Performing Organization Address [facility]/ZIP Co de Phone Number [address] [address] * C-Reactive Protein (03/09/2025 6:44 PM EDT) C REACTIVE PROTEIN <3.0 0.0 - 4.0 mg/L [facility] 03/09/2025 6:44 PM EDT 03/09/2025 7:00 PM EDT us Carlos Eduardo Cummins MD LAB BLOOD ORDERABLES Fin al Result Performing Organization Address [facility] Co de Phone Number [address] [address] * Lipase (03/09/2025 6:44 PM EDT) Only the most recent of2 resultswithin the time period is included. LIPASE 52 16 - 63 U/L [facility] Blood 03/09/2025 6:44 PM EDT 03/09/2025 7:00 PM EDT Carlos Eduardo Cummins MD LAB BLOOD ORDERABLES Fin al Result Performing Organization Address [facility]/ZIP Co de Phone Number [address] [address] * (ABNORMAL) Basic metabolic panel (03/09/2025 6:44 PM EDT) Only the most recent of2 resultswithin the time period is included. SODIUM 136 133 - 146 mmol/L [facility] CHLORIDE 104 96 - 108 mmol/L [facility] POTASSIUM 4.1 3.3 - 5.1 mmol/L [facility] Comment:Specimen slightly he molyzed, result may be falsely elevated. CO2 21 21 - 35 mmol/L [facility] BUN 11 6 - 19 mg/dL [facility] CREATININE 0.80 0.5 - 1.5 mg/dL [facility] GLUCOSE 116(H) 70 - 99 mg/dL [facility] CALCIUM 9.4 8.4 - 10.3 mg/dL [facility] EGFR 112 >59 mL/min/1.7 3m2 [facility] Comment:Estimated glomerular filtration rate calculated using the CKD-EPI refit equation. ANION GAP 15 10 - 20 mmol/L [facility] Blood 03/09/2025 6:44 PM EDT 03/09/2025 7:00 PM EDT us Carlos Eduardo Cummins MD LAB BLOOD ORDERABLES Fin al Result [address] [address] * CT ABDOMEN/PELVIS WITH CONTRAST (02/20/2025 2:46 [...] HS Gen5 <6 0 - 14 ng/L [facility] Blood 02/19/2025 11:0 2 PM EDT 02/19/2025 11:12 PM EDT Elias Gotti MD LAB BLOOD ORDERAB LES Final Result Performing Organization Address [facility] Co de Phone Number [address] [address] * ECG 12-LEAD (02/19/2025 9:27 PM EDT) Ventricular Rate EKG/MIN 85 BPM [facility] Atrial Rate 85 BPM [facility] NM Interval 144 ms [facility] QRS Duration 82 ms [facility] QT Interval 382 ms [facility] QTC Interval 454 ms [facility] P Hayti 56 degrees [facility] R Wave Hayti 23 degrees [facility] T Wave Hayti 11 degrees [facility] 02/19/2025 9:27 PM EDT 02/20/2025 11:38 PM EDT Narrative [facility] - 02/20/2025 11:38 PM EDT Normal sinus rhythm Possible Left atrial enlargement Nonspecific T wave abnormality Abnormal ECG When compared with ECG of 30-Nov-2024 22:03, No significant change was found Confirmed by Timothy Vegas ([id number]) on 02/20/2025 11:38:54 PM Elias Gotti MD ECG ORDERABLES F inal Result Performing Organization Address [facility] Co de Phone Number [facility] * (ABNORMAL) Lipid panel (02/29/2024 5:05 PM EDT) HDL 21 mg/dL [facility] Comment: Interpretation <40 mg/dL: Low HDL cholesterol (major risk factor for CHD) Greater than or equal to 60 mg/dL: High HDL cholesterol ( negative risk factor for CHD) HDL - cholesterol is affected by a number of factors, e.g. smoking, excerise, hormones, sex and age. CHOLESTEROL 764(H) 0 - 240 mg/dL [facility] TRIGLYCERIDES 3,858(H) 30 - 160 mg/dL [facility] LDL NOT CALCULATED 50 - 129 mg/dL [facility] Comment: Unable to calculate due to elevated TRIG of greater than 400. A measured LDL will be performed. CARDIAC RISK RATIO 36.4(H) 3.4 - 5.0 [facility] Blood 02/29/2024 5:05 PM EDT 02/29/2024 5:07 PM EDT us Alexander Foster PA-C LAB BLOOD ORDERABLES Final Re sult [facility] [address] [place] [address] from Last 3 Months or Most Recently Relevant to Health Maintenance Insurance [facility] [address] [id number] [facility] [address] [place] [id number] [facility] Advance Directives For more information, please contact: [phone] (9AM - 5PM [facility], Sunday-Sunday) Documents on File Type Date Recorded Patient Knurling Machine Operator Expl anation Healthcare Proxy 03/11/2024 4:11 PM [...] presumed on basis of a Care Teams Frozen Yogurt Maker Relationship Specialty Start Date End Date Dayton Gould PA [address] [place] [address] PCP - General 10/05/20 Additional Source Comments The information contained in this document represents components of the legal health record. It is not the complete legal health record.[facility]
--- OUTSIDE RECORDS SUMMARY | 2025-03-20 10:13 | XMS_ITS | Clinical Summary ---
Author Organization [employer] Address [address] [facility] 7t [place] [address] Care Team Providers Care Digital Account Supervisor Name Role Phone Unavailable Primary Care Provider Unavailabl e Allergies No known active allergies Medications gemfibrozil (Lopid) 600 MG tablet Take 600 mg by mouth 2 times daily. 06/13/2024 Active niacin ER 250 MG ER tablet Take 2 tablets by mouth in the morning. 12/10/2023 Active amoxicillin-cla vulanate (Augmentin) 875-125 MG tablet Take 1 tablet by mouth 2 times daily. 02/25/2025 Active acetaminophen (Tylenol) 325 MG tablet Take 2 tablets (650 mg) by mouth every 6 (six) hours if needed for mild pain for up to 5 days. 30 tablet 03/19/2025 5 Active Active Problems Problem Noted Date Diagnosed Date Acute pancreatitis without infection or necrosis 10/05/2020 Class 1 obesity in adult 10/05/2020 GERD (gastroesophageal reflux disease) History of DVT (deep vein thrombosis) 10/05/2020 Hypertriglyceridemia 10/05/[address] 10/05/2020 Microcytic anemia 10/05/2020 Presence of IVC filter 10/05/2020 Encounters Date Type Department Care Team Description 03/19/2025 8:00 AM EDT Office Visit [facility] [address] [place] [address] Austin Simmons 03/19/2025 Travel 03/13/2025 3:30 PM EDT Office Visit [facility] [address] [place] [address] Jovon Doss 03/11/2025 3:00 PM EDT Office Visit [facility] [address] [place] [address] Austin Simmons Dental caries (Primary Dx); Pain, [...] Description 03/26/2025 8:00 AM EDT Office Visit [facility] [address] [place] [address] Health Maintenance Due Date Last Done Comments CT Colonography 1980 Colonoscopy 1980 Colorectal Cancer Screening 1980 Depression Screening 1980 FIT DNA/Cologuard 1980 FIT 1980 FOBT 1980 HIV Screening 1980 Lipid Panel 1980 SDOH Screening 1980 Sigmoidoscopy 1980 Disability Screening 1980 Alcohol/Substance Use Screening [...] season) 2025 11/01/2020 Influenza Vaccine (#1) 2025 9, 02/20/2017 Dental X-Ray: Bitewings 03/14/2026 03/13/20, 03/11/2025, 09/20/2017 Tobacco Screening 03/19/2026 03/19/2025 Zoster Vaccines (1 of 2) 2030 RSV [...] (ELEVATION/FORCEPS REMOVAL) Routine 03/19/2025 8:00 AM EDT BITEWING - SINGLE RADIOGRAPHIC IMAGE Routine 03/13/2025 3:30 PM EDT 19 INTRAORAL - PERIAPICAL FIRST RADIOGRAPHIC IMAGE Routine 03/13/2025 3:30 PM EDT 19 LIMITED ORAL EVALUATION - PROBLEM FOCUSED Routine 03/13/2025 3:30 PM EDT BITEWING - [...] Most Recently Relevant to Health Maintenance [facility] [address] [id number] [place]
--- OUTSIDE RECORDS SUMMARY | 2025-03-20 10:13 | XMS_ITS | Encounter Summary ---
Author Organization [facility] Address [address] [facility] [address] [place] [address] Phone Care Team Providers Care Music Professionals Name Role Phone Dayton Gould Primary Care Provider + Encounter Details Date Type Department Care Team (Late st Contact Info) Description 08/24/2024 Procedure Pass [facility], Ct Scan - [facility] [address] [place] [address] Social History Tobacco Use Types Packs/Day Years [...] EDT Office Visit [facility] [address] [place] [address] [place] [address] Bernice Jacome [address] [place] [address], [address] [place] [address] [email or web address] documented as of this encounter Visit Diagnoses Not on filedocumented in this encounter Additional Health Concerns Infection Onset Date Last Indicated Resolved Time CoV-Risk 03/09/2025 03/09/2025 03/20/2025 1:21 AM EDT documented as of this encounter Care Teams Music Professionals Relationship Specialty Start Date End Date Dayton Gould PA [address] [place] [address] PCP - General 10/05/20 documented as of this encounter Additional Source Comments The information contained in this document represents components of the legal health record. It is not the complete legal health record.[facility]
--- OUTSIDE RECORDS SUMMARY | 2025-03-20 10:13 | XMS_ITS | Encounter Summary ---
Author Organization [facility] Address [address] [facility] [address] [place] [phone] Phone Care Team Providers Care Tying Machine Operator Lumber Name Role Phone Dayton Gould Primary Care Provider + Encounter Details Date Type Department Care Team (Late st Contact Info) Description 12/11/2021 Procedure Pass [facility], Ct Scan - [address] [address] Social History Tobacco Use Types Packs/Day Years [...] 5:39 AM EDT Yoli Higginbotham RN * [place] Suicide Severity Rating Scale (Screener/Recent Self-Report) Question [...] 09/20/2026 9:00 AM EDT Office Visit [facility] [address] [place] [address] Bernice Jacome [address] [facility], [address] [place] [address] [email or web address] documented as of this encounter Visit [...] documented as of this encounter Care Teams Tying Machine Operator Lumber Relationship Specialty Start Date End Date Dayton Gould PA [address] [place] [address] PCP - General 10/05/20 documented as of this encounter Additional Source Comments The information contained in this document represents components of the legal health record. It is not the complete legal health record.[facility]
--- OUTSIDE RECORDS SUMMARY | 2025-03-20 10:13 | XMS_ITS | Encounter Summary ---
Author Organization [facility] Address [address] [facility] [address] [place] [phone] Phone Care Team Providers Care Director Of Regional Sales Name Role Phone Dayton Gould Primary Care Provider + Encounter Details Date Type Department Care Team (Late st Contact Info) Description 12/14/2021 Procedure Pass [facility], [address] [address] Social History Tobacco Use Types Packs/Day Years [...] Description 09/20/2026 9:00 AM EDT Office Visit [address] [address] Bernice Jacome [address] [place] [address], [address] [place] [address] [email or web address] documented as of this encounter Visit [...] documented as of this encounter Care Teams Director Of Regional Sales Relationship Specialty Start Date End Date Dayton Gould PA [address] [place] [address] PCP - General 10/05/20 documented as of this encounter Additional Source Comments The information contained in this document represents components of the legal health record. It is not the complete legal health record.[facility]
--- OUTSIDE RECORDS SUMMARY | 2025-03-20 10:14 | XMS_ITS | Encounter Summary ---
Author Organization [facility] Address [address] [place] [address] Phone Care Team Providers Care Log Loader Helper Name Role Phone Dayton Gould Primary Care Provider + Encounter Details Date Type Department Care Team (Late st Contact Info) Description 06/09/2024 Procedure Pass [facility], Ct Scan - [facility] [address] [place] [address] Social History Tobacco Use Types Packs/Day Years [...] 09/20/2026 9:00 AM EDT Office Visit [facility] [address] [place] [address] Bernice Jacome [address] [place] [address], [address] [place] [address] [email or web address] documented as of this encounter Visit Diagnoses Not on filedocumented in this encounter Additional Health Concerns Infection Onset Date Last Indicated Resolved Time CoV-Risk Comment:Per note documentation 08/04/2024 08/04/2024 9:21 AM EST CDiff-Risk 08/04/2024 08/05/2024 08/05/2024 2:09 AM EST CoV-Risk 03/09/2025 03/09/2025 03/20/2025 1:21 AM EDT documented as of this encounter Care Teams Log Loader Helper Relationship Specialty Start Date End Date Dayton Gould PA [address] [place] [address] PCP - General 10/05/20 documented as of this encounter Additional Source Comments The information contained in this document represents components of the legal health record. It is not the complete legal health record.[facility]
--- OUTSIDE RECORDS SUMMARY | 2025-03-20 10:14 | XMS_ITS | Encounter Summary ---
Author Organization [employer] Address [address] [facility] 7t [place] [address] Care Team Providers Care Polisher Numeral Name Role Phone Unavailable Primary Care Provider Unavailabl e Encounter Details Date Type Department Care Team (Latest Contact Info) Description 03/19/2025 Travel Social History Tobacco Use Types Packs/Day Years [...] Description 03/26/2025 8:00 AM EDT Office Visit [facility] [address] [place] [address] documented as of this encounter Visit Diagnoses Not on filedocumented in this encounter
--- OUTSIDE RECORDS SUMMARY | 2025-03-20 10:14 | XMS_ITS | Clinical Summary ---
Author Organization [facility] Address [address] [place] [address] Care Team Providers Care Freezer Assistant Name Role Phone Unavailable Primary Care Provider [...]
--- OUTSIDE RECORDS SUMMARY | 2025-03-20 10:14 | XMS_ITS | Encounter Summary ---
Author Organization [facility] Address [address] [place] [address] Phone Care Team Providers Care Servomechanism Assembler Name Role Phone Dayton Gould Primary Care Provider + Encounter Details Date Type Department Care Team (Late st Contact Info) Description 06/07/2024 Procedure Pass [facility], Ct Scan - [facility] [address] [place] [address] Social History Tobacco Use Types Packs/Day Years [...] 06/08/2024 3:07 AM Tino Cooper RN * [place] Suicide Severity Rating Scale (Screener/Recent Self-Report) Question [...] 9:00 AM EDT Office Visit [facility] [address] [place] [address] Bernice Jacome [address] [place] [address], [address] [place] [address] [email or web address] documented as of [...] documented as of this encounter Care Teams Servomechanism Assembler Relationship Specialty Start Date End Date Dayton Gould PA [address] [place] [address] PCP - General 10/05/20 documented as of this encounter Additional Source Comments The information contained in this document represents components of the legal health record. It is not the complete legal health record.[facility]
== END 2025-03-20 10:03 | disposition home or self-care (01) ==
LOC: HO.HMCH 09:38
PROVIDERS: PCP Physician Assistant; Visit Provider Physician Assistant
DX: E53.8 Deficiency of other specified B group vitamins (principal)

== ENCOUNTER → 2025-03-20 09:37 | Outpatient (BNVA) | payer OTHER, SELFPAY | PROVIDERS: PCP Physician Assistant; Visit Provider Physician Assistant | DX: E53.8 Deficiency of other specified B group vitamins (principal) | CPT/HCPCS: 96372; J3420 ==

== ENCOUNTER 2025-03-27 08:59 | Outpatient (AMB) | payer OTHER, SELFPAY ==
--- OUTSIDE RECORDS SUMMARY | 2025-03-26 08:00 | XMS_ITS | Encounter Summary ---
Author Organization [employer] Address [address] [facility] [address] [place] [address] Care Team Providers Care Marketing Compliance Manager Name Role Phone Unavailable Primary Care Provider Unavailabl e Reason for Visit * Reason Comments Extraction Encounter Details Date Type Department Care Team (Late st Contact Info) Description 03/26/2025 8:00 AM EDT Office Visit [facility] [address] [place] [address] Austin Simmons Social History Tobacco Use Types [...] 8:00 AM EDT Office Visit [facility] [address] [place] [address] Scheduled Orders Name Type Priority Associated Diagnoses [...]
--- NOTE | 2025-03-27 09:08 | AM.OFFVISNUR ---
Intake Visit Reasons: RN visit, Vitamin B12 [facility] Adverse Reaction (Mild, Verified 03/14/25 00:55) Nightmare lactose Adverse Reaction (Unknown, Verified 03/14/25 00:55) Diarrhea Office Meds cyanocobalamin (vitamin B-12) 1,000 mcg/mL injection solution Performing Provider: Dayton Gould PA-C [facility] Administered by: Hanh Philip LPN on 03/27/25 09:08 Dose Route Admin Location Dispensed Lot Number Expiration Date [facility] Side Stapler 1,000 mcg IM right deltoid 1 mL [id number] 05/31/26 51934-514-57 [employer] Total Dispensed Waste 1 mL 0 % Assessment & Plan Assessment & Plan Orders: Orders AMB Vitamin B12 Injection Patient Supplied Today E53.8 - Deficiency of other specified B group vitamins Coding
--- OUTSIDE RECORDS SUMMARY | 2025-03-27 09:36 | XMS_ITS | Encounter Summary ---
Author Organization [facility] Address [address] [place] [address] [place] [address] Phone Care Team Providers Care Firer Portable Boiler Name Role Phone Dayton Gould Primary Care Provider + Encounter Details Date Type Department Care Team (Late st Contact Info) Description 09/12/2023 Procedure Pass [facility] [place] [place] [address] Social History Tobacco Use Types Packs/Day Years [...] 09/20/2026 9:00 AM EDT Office Visit [facility] [address] [place] [address] [place] [address] Bernice Jacome [address], [address] [place] [address] [email or web address] documented as of this [...] documented as of this encounter Care Teams Firer Portable Boiler Relationship Specialty Start Date End Date Dayton Gould PA [address] [place] [address] PCP - General 10/05/20 documented as of this encounter Additional Source Comments The information contained in this document represents components of the legal health record. It is not the complete legal health record.[facility]
--- OUTSIDE RECORDS SUMMARY | 2025-03-27 09:37 | XMS_ITS | Encounter Summary ---
Author Organization [facility] Address [address] [facility] [address] [place] [address] Phone Care Team Providers Care Sewing Department Supervisor Name Role Phone Dayton Gould Primary Care Provider + Encounter Details Date Type Department Care Team (Late st Contact Info) Description 06/16/2023 Procedure Pass [facility], Ct Scan - [address] [address] Social History Tobacco Use Types Packs/Day Years [...] 06/16/2023 6:47 PM Leandro Mukherjee RN * Independence Suicide Severity Rating Scale (Screener/Recent Self-Report) Question [...] 09/20/2026 9:00 AM EDT Office Visit [facility] [address] [place] [address] Bernice Jacome [address] [place] [address], [address] [place] [address] [email or web address] documented as of this encounter Visit [...] documented as of this encounter Care Teams Sewing Department Supervisor Relationship Specialty Start Date End Date Dayton Gould PA [address] [place] [address] PCP - General 10/05/20 documented as of this encounter Additional Source Comments The information contained in this document represents components of the legal health record. It is not the complete legal health record.[facility]
--- OUTSIDE RECORDS SUMMARY | 2025-03-27 09:37 | XMS_ITS | Encounter Summary ---
Author Organization [facility] Address [address] [facility] [address] [place] [address] Phone Care Team Providers Care Payroll Benefits Clerk Name Role Phone Dayton Gould Primary Care Provider + Encounter Details Date Type Department Care Team (Late st Contact Info) Description 02/20/2025 Procedure Pass [facility], Ct Scan - [facility] [address] [place] [address] Social History Tobacco Use Types Packs/Day Years [...] EDT Office Visit [facility] [place] [facility] [address] [place] [address] [place] [address] Bernice Jacome [address] [place] [address], [address] [place] [address] [email or web address] documented as of this encounter Visit Diagnoses Not on filedocumented in this encounter Additional Health Concerns Infection Onset Date Last Indicated Resolved Time CoV-Risk 03/09/2025 03/09/2025 03/20/2025 1:21 AM EDT documented as of this encounter Care Teams Payroll Benefits Clerk Relationship Specialty Start Date End Date Dayton Gould PA [address] [place] [address] PCP - General 10/05/20 documented as of this encounter Additional Source Comments The information contained in this document represents components of the legal health record. It is not the complete legal health record.[facility]
--- OUTSIDE RECORDS SUMMARY | 2025-03-27 09:37 | XMS_ITS | Clinical Summary ---
Author Organization [facility] Address [address] [facility] [address] [place] [address] Phone Care Team Providers Care Evening Anchor Name Role Phone Dayton Gould Primary Care [...] increase D5 NS infusion. Continue to monitor [id number] blood sugars with goals of eventually initiating [...] related pancreatitis and the last admitted to [facility] in September 2020 when triglyceride levels were greater than 4000 after stopping medication Was recently admitted to [facility] for recurrent pancreatitis. Was treated supportively and discharged home. He presented back to [facility] with recurrent abdominal pain, bloating, vomiting and [...] low-fat diet today Regular GI is in [place] Dr. Bright Follow over the day and [...] Department Care Team Description 03/10/2025 Procedure Pass [facility] [place], Ct [address] [address] 03/09/2025 9:25 PM EDT - 03/10/2025 3:17 AM EDT Emergency [facility] [address] [place] [address] Breanne Locke MD Discharge Disposition: Home or Self Care 02/20/2025 12:26 AM EDT - 02/20/2025 5:53 AM EDT Emergency [facility] [address] [place] [address] Samir Dee, DO Discharge Disposition: Home or Self Care 02/20/2025 Procedure Pass [facility] [place], Ct Scan [address] [address] from Last 3 Months Immunizations Immunization Administration [...] 09/20/2026 9:00 AM EDT Office Visit [facility] [address] [place] [address] Bernice Jacome [address] [facility], [address] [place] [address] [email or web address] Maintenance Due Date Last Done Comments [...] EDT) Heterophile Ab NON-REACTI VE NON-REACTI VE [facility] Blood (Blood) 03/09/2025 10: 35 PM EDT 03/09/2025 10:49 PM EDT Breanne Locke MD NON CULTURE MICROBIOLOGY Fin al Result Performing Organization Address [facility] Co de Phone Number [address] [address] * COVID Pandemic Respiratory Viral Order (PRO) (03/09/2025 10:23 PM EDT) Test Ordered Rapid COVID has been ordered [facility] Specimen Source/Description NASAL [facility] SARS-CoV 2 (COVID-19) PCR Not Detected Not Detected [facility] Comment: SARS-CoV-2 not detected Negative results do not preclude SARS-CoV-2 infection and should not be used as the sole basis for patient management decisions. Negative results must be combined with clinical observations, patient history, and epidemiological information. Other (Nasopharyngeal swab) 03/09/2025 10:23 PM EDT 03/09/2025 11:13 PM EDT Breanne Locke MD BODY FLUIDS AND STOOLS ORDER PREETHI Final Result Performing Organization Address [facility] Co de Phone Number [address] [address] * Urinalysis w/reflex Urine Culture (03/09/2025 9:32 PM EDT) COLOR Yellow Yellow [facility] CLARITY Clear [facility] GLUCOSE Negative Negative [facility] BILI Negative Negative [facility] KETONES Negative Negative [facility] SPECIFIC GRAVITY >1.030 1.005 - 1.030 [facility] BLOOD Negative Negative [facility] PH 6.0 5.0 - 8.0 [facility] Protein-UA Negative Negative [facility] NITRITE Negative Negative [facility] Leukocyte esterase, ur Negative Negative [facility] Urine (Urine) 03/09/2025 9:3 2 PM EDT 03/09/2025 9:54 PM EDT Carlos Eduardo Cummins MD URINE ORDERABLES Final R esult Performing Organization Address [facility]/ZIP Co de Phone Number [address] [address] * TSH with reflex (03/09/2025 6:44 PM EDT) TSH 0.70 0.27 - 4.20 uIU/mL [facility] 03/09/2025 6:44 PM EDT 03/09/2025 7:00 PM EDT Carlos Eduardo Cummins MD LAB BLOOD ORDERABLES Fin al Result Performing Organization Address [facility] Co de Phone Number [address] [address] * LFTs (hepatic panel) (03/09/2025 6:44 PM EDT) Only the most recent of2 resultswithin the time period is included. ALKALINE PHOSPHATASE 101 39 - 117 U/L [facility] TOTAL BILIRUBIN 0.4 0.0 - 1.2 mg/dL [facility] DIRECT BILIRUBIN <0.1 0.0 - 0.2 mg/dL [facility] Bilirubin (Indirect) NOT CALCULATED 0 - 1.5 mg/dL [facility] AST 20 0 - 37 U/L [facility] ALT 16 0 - 40 U/L [facility] TOTAL PROTEIN 7.6 6.5 - 8.0 g/dL [facility] ALBUMIN 4.4 3.9 - 4.8 g/dL [facility] GLOBULIN 3.2 1 - 4.8 g/dL [facility] A/G Ratio 1.38 1.00 - 4.80 RATIO [facility] Blood 03/09/2025 6:44 PM EDT 03/09/2025 7:00 PM EDT us Carlos Eduardo Cummins MD LAB BLOOD ORDERABLES Fin al Result [address] [address] * (ABNORMAL) CBC and differential (03/09/2025 6:44 PM EDT) Only the most recent of2 resultswithin the time period is included. WBC 9.01 4.00 - 11.00 K/uL [facility] RBC 5.37 4.50 - 5.90 M/uL [facility] HGB 14.1 13.5 - 17.5 g/dL [facility] HCT 42.1 41.0 - 53.0 % [facility] PLT 302 150 - 450 K/uL [facility] MCV 78.4(L) 80.0 - 100.0 fL [facility] MCH 26.3(L) 27.0 - 31.0 pg [facility] MCHC 33.5 32.0 - 36.0 g/dL [facility] RDW 13.3 11.5 - 14.5 % [facility] MPV 9.7 8.4 - 12.0 fL [facility] NRBC 0.00 0.00 /100 WBCs [facility] ABSOLUTE NRBC 0.00 0.00 K/uL [facility] DIFF METHOD Auto [facility] NEUTS 46.5(L) 48.0 - 76.0 % [facility] LYMPHS 36.3 18.0 - 41.0 % [facility] MONOS 13.3(H) 4.0 - 11.0 % [facility] EOS 3.0 0.0 - 5.0 % [facility] BASOS 0.3 0.0 - 1.5 % [facility] Granulocytes, immature (%) 0.6 0.0 - 0.9 % [facility] ABSOLUTE NEUTS 4.19 1.92 - 7.60 K/uL [facility] ABSOLUTE LYMPHS 3.27 0.72 - 4.10 K/uL [facility] ABSOLUTE MONOS 1.20(H) 0.16 - 1.10 K/uL [facility] ABSOLUTE EOS 0.27 0.00 - 0.50 K/uL [facility] ABSOLUTE BASOS 0.03 0.00 - 0.15 K/uL [facility] Granulocytes, immature 0.05 0.00 - 0.09 K/uL [facility] Blood 03/09/2025 6:44 PM EDT 03/09/2025 7:00 PM EDT us Carlos Eduardo Cummins MD LAB BLOOD ORDERABLES Fin al Result Performing Organization Address [facility]/ZIP Co de Phone Number [address] [address] * C-Reactive Protein (03/09/2025 6:44 PM EDT) C REACTIVE PROTEIN <3.0 0.0 - 4.0 mg/L [facility] 03/09/2025 6:44 PM EDT 03/09/2025 7:00 PM EDT us Carlos Eduardo Cummins MD LAB BLOOD ORDERABLES Fin al Result Performing Organization Address [facility] Co de Phone Number [address] [address] * Lipase (03/09/2025 6:44 PM EDT) Only the most recent of2 resultswithin the time period is included. LIPASE 52 16 - 63 U/L [facility] Blood 03/09/2025 6:44 PM EDT 03/09/2025 7:00 PM EDT Carlos Eduardo Cummins MD LAB BLOOD ORDERABLES Fin al Result Performing Organization Address [facility]/ZIP Co de Phone Number [address] [address] * (ABNORMAL) Basic metabolic panel (03/09/2025 6:44 PM EDT) Only the most recent of2 resultswithin the time period is included. SODIUM 136 133 - 146 mmol/L [facility] CHLORIDE 104 96 - 108 mmol/L [facility] POTASSIUM 4.1 3.3 - 5.1 mmol/L [facility] Comment:Specimen slightly he molyzed, result may be falsely elevated. CO2 21 21 - 35 mmol/L [facility] BUN 11 6 - 19 mg/dL [facility] CREATININE 0.80 0.5 - 1.5 mg/dL [facility] GLUCOSE 116(H) 70 - 99 mg/dL [facility] CALCIUM 9.4 8.4 - 10.3 mg/dL [facility] EGFR 112 >59 mL/min/1.7 3m2 [facility] Comment:Estimated glomerular filtration rate calculated using the CKD-EPI refit equation. ANION GAP 15 10 - 20 mmol/L [facility] Blood 03/09/2025 6:44 PM EDT 03/09/2025 7:00 PM EDT us Carlos Eduardo Cummins MD LAB BLOOD ORDERABLES Fin al Result [address] [address] * CT ABDOMEN/PELVIS WITH CONTRAST (02/20/2025 2:46 [...] HS Gen5 <6 0 - 14 ng/L [facility] Blood 02/19/2025 11:0 2 PM EDT 02/19/2025 11:12 PM EDT Elias Gotti MD LAB BLOOD ORDERAB LES Final Result Performing Organization Address [facility] Co de Phone Number [address] [address] * ECG 12-LEAD (02/19/2025 9:27 PM EDT) Ventricular Rate EKG/MIN 85 BPM [facility] Atrial Rate 85 BPM [facility] NH Interval 144 ms [facility] QRS Duration 82 ms [facility] QT Interval 382 ms [facility] QTC Interval 454 ms [facility] P [place] 56 degrees [facility] R Wave [place] 23 degrees [facility] T Wave [place] 11 degrees [facility] 02/19/2025 9:27 PM EDT 02/20/2025 11:38 PM EDT Narrative [facility] - 02/20/2025 11:38 PM EDT Normal sinus rhythm Possible Left atrial enlargement Nonspecific T wave abnormality Abnormal ECG When compared with ECG of 30-Nov-2024 22:03, No significant change was found Confirmed by Timothy Vegas ([id number]) on 02/20/2025 11:38:54 PM Elias Gotti MD ECG ORDERABLES F inal Result Performing Organization Address [facility] Co de Phone Number [facility] * (ABNORMAL) Lipid panel (02/29/2024 5:05 PM EDT) HDL 21 mg/dL [facility] Comment: Interpretation <40 mg/dL: Low HDL cholesterol (major risk factor for CHD) Greater than or equal to 60 mg/dL: High HDL cholesterol ( negative risk factor for CHD) HDL - cholesterol is affected by a number of factors, e.g. smoking, excerise, hormones, sex and age. CHOLESTEROL 764(H) 0 - 240 mg/dL [facility] TRIGLYCERIDES 3,858(H) 30 - 160 mg/dL [facility] LDL NOT CALCULATED 50 - 129 mg/dL [facility] Comment: Unable to calculate due to elevated TRIG of greater than 400. A measured LDL will be performed. CARDIAC RISK RATIO 36.4(H) 3.4 - 5.0 [facility] Blood 02/29/2024 5:05 PM EDT 02/29/2024 5:07 PM EDT us Alexander Foster PA-C LAB BLOOD ORDERABLES Final Re sult [facility] [address] [place] [address] from Last 3 Months or Most Recently Relevant to Health Maintenance Insurance [facility] ACO [facility]CO [facility]CO [facility] [address]CO [address] [id number] [facility] ACO [address] [place] [id number] [facility] ACO Advance Directives For more information, please contact: [phone] (9AM - 5PM [facility], Sunday-Sunday) Documents on File Type Date Recorded Patient Senior Electronics Engineer Expl anation Healthcare Proxy 03/11/2024 4:11 PM [...] presumed on basis of a Care Teams Evening Anchor Relationship Specialty Start Date End Date Dayton Gould PA [address] [place] [address] PCP - General 10/05/20 Additional Source Comments The information contained in this document represents components of the legal health record. It is not the complete legal health record.[facility]
--- OUTSIDE RECORDS SUMMARY | 2025-03-27 09:37 | XMS_ITS | Patient Health Record ---
Author Organization [facility] Address [address] [place] [address] Care Team Providers Care Graphic Designer Name Role Phone Dayton Gould Primary [...] Problem Status W/U Status Risk Notes Problem 374335008 Ileostomy status (Z93.2) Active confirmed Problem 17702410 Ulcerative colit is without complications, unspecified location (K51.90) Active confirmed Problem Hypertriglyceridemia (023430950) Hypertriglyceridemia (E78.1) Active confirmed Problem Pancreatitis (30374526) Pancreatitis (K85.90) Active confirmed Problem 345370175 Acute pancreatit is without infection or necrosis, unspecified pancreatitis type (K85.90) Active confirmed Problem 22370863 Ulcerative colit is, unspecified (K51.90) Active confirmed Plan Of Treatment Pending Test Test Name Order Date LIVER PROFILE 05/31/2022 Triglycerides 05/31/2022 Lipase 05/31/2022 Insurance Providers Payer Name Payer Address Payer Phone Subscriber Number Group Number Insured Name Patient Relationship to Insured Coverage Start Date Coverage End Date [facility] Plan [address] [address] [place], [place] [id number] [phone] [id number] KAMARI DELEON Self - patient is the [...]
--- OUTSIDE RECORDS SUMMARY | 2025-03-27 09:37 | XMS_ITS | Encounter Summary ---
Author Organization [facility] Address [address] [facility] [address] [place] [address] Phone Care Team Providers Care Optical Instruments Supervisor Name Role Phone Dayton Gould Primary Care Provider + Encounter Details Date Type Department Care Team (Late st Contact Info) Description 03/10/2025 Procedure Pass [facility], Ct Scan - [facility] [address] [place] [address] Social History Tobacco Use Types Packs/Day Years [...] EDT Office Visit [facility] [place] [facility] [address] [place] [address] [place] [address] Bernice Jacome [address] [place] [address], [address] [place] [address] [email or web address] documented as of this encounter Visit Diagnoses Not on filedocumented in this encounter Additional Health Concerns Infection Onset Date Last Indicated Resolved Time CoV-Risk 03/09/2025 03/09/2025 03/20/2025 1:21 AM EDT documented as of this encounter Care Teams Optical Instruments Supervisor Relationship Specialty Start Date End Date Dayton Gould PA [address] [place] [address] PCP - General 10/05/20 documented as of this encounter Additional Source Comments The information contained in this document represents components of the legal health record. It is not the complete legal health record.[facility]
--- OUTSIDE RECORDS SUMMARY | 2025-03-27 09:37 | XMS_ITS | Encounter Summary ---
Author Organization [facility] Address [address] [facility] [address] [place] [address] Phone Care Team Providers Care Dry Cell Tester Name Role Phone Dayton Gould Primary Care Provider + Encounter Details Date Type Department Care Team (Late st Contact Info) Description 07/29/2022 Procedure Pass [facility], Ct Scan - [address] [address] Social History Tobacco Use Types Packs/Day Years [...] 07/29/2022 3:45 PM Leola Flynn RN * [place] Suicide Severity Rating Scale (Screener/Recent Self-Report) Question Answer Date of Assessment Author 1. Wish to be (Past 1 Month) No 023 3:45 PM Leola Flynn, TAI 2. Non-Specific Active Suici william Thoughts (Past 1 Month) No 07/29/2022 3:45 PM Leola lFynn, TAI 6. Suicidal Behavior (Lifetime) No 3:45 PM EST Leola Hinkle RN documented as of this encounter Plan of Treatment Upcoming Encounters Date Type Department Care Team (Late st Contact Info) Description 09/20/2026 9:00 AM EDT Office Visit [facility] [address] [place] [address] Bernice Jacome [address] [facility], [address] [place] [address] [email or web address] [...] documented as of this encounter Care Teams Dry Cell Tester Relationship Specialty Start Date End Date Dayton Gould PA [address] [place] [address] PCP - General 10/05/20 documented as of this encounter Additional Source Comments The information contained in this document represents components of the legal health record. It is not the complete legal health record.[facility]
--- OUTSIDE RECORDS SUMMARY | 2025-03-27 09:37 | XMS_ITS | Clinical Summary ---
Author Organization [facility] Address [address] [place] [address] Care Team Providers Care Stamping Bench Die Maker Name Role Phone Unavailable Primary Care [...] - 19+ 3-dose series) 1999 COVID-19 Vaccine ( - 2023-2 5 season) 2025 HPV Vaccines (No Doses Required) Completed Pneumococcal Vaccine: Pediat jeremiah (0-5 Years) and At-Risk Patients (6 to 49 Years) Aged Out No longer eligible b ased on patient's age to complete this topic
--- OUTSIDE RECORDS SUMMARY | 2025-03-27 09:37 | XMS_ITS | Encounter Summary ---
Author Organization [facility] Address [address] [facility] [address] [place] [address] Phone Care Team Providers Care Single Pointed Operator Name Role Phone Dayton Gould Primary Care Provider + Encounter Details Date Type Department Care Team (Late st Contact Info) Description 08/24/2024 Procedure Pass [facility], Ct Scan - [facility] [address] [place] [address] Social History Tobacco Use Types Packs/Day Years [...] EDT Office Visit [facility] [address] [place] [address] [place] [address] Bernice Jacome [address] [place] [address], [address] [place] [address] [email or web address] documented as of this encounter Visit Diagnoses Not on filedocumented in this encounter Additional Health Concerns Infection Onset Date Last Indicated Resolved Time CoV-Risk 03/09/2025 03/09/2025 03/20/2025 1:21 AM EDT documented as of this encounter Care Teams Single Pointed Operator Relationship Specialty Start Date End Date Dayton Gould PA [address] [place] [address] PCP - General 10/05/20 documented as of this encounter Additional Source Comments The information contained in this document represents components of the legal health record. It is not the complete legal health record.[facility]
--- OUTSIDE RECORDS SUMMARY | 2025-03-27 09:37 | XMS_ITS | Encounter Summary ---
Author Organization [facility] Address [address] [facility] [address] [place] [address] Phone Care Team Providers Care Photovoltaic Solar Cell Designer Name Role Phone Dayton Gould Primary Care Provider + Encounter Details Date Type Department Care Team (Late st Contact Info) Description 12/14/2021 Procedure Pass [facility], [address] [address] Social History Tobacco Use Types Packs/Day Years [...] Description 09/20/2026 9:00 AM EDT Office Visit [address] [address] Bernice Jacome [address] [place] [address], [address] [place] [address] [email or web address] documented as of this [...] documented as of this encounter Care Teams Photovoltaic Solar Cell Designer Relationship Specialty Start Date End Date Dayton Gould PA [address] [place] [address] PCP - General 10/05/20 documented as of this encounter Additional Source Comments The information contained in this document represents components of the legal health record. It is not the complete legal health record.[facility]
--- OUTSIDE RECORDS SUMMARY | 2025-03-27 09:37 | XMS_ITS | Encounter Summary ---
Author Organization [facility] Address [address] [facility] [address] [place] [address] Phone Care Team Providers Care Vision Rehabilitation Therapist Name Role Phone Dayton Gould Primary Care Provider + Encounter Details Date Type Department Care Team (Late st Contact Info) Description 12/11/2021 Procedure Pass [facility], Ct Scan - [address] [address] Social History Tobacco Use Types Packs/Day Years [...] No Risk Indicated 12/12/2021 5:39 AM EDT oYli Higginbotham RN * [place] Suicide Severity Rating Scale (Screener/Recent Self-Report) Question [...] 09/20/2026 9:00 AM EDT Office Visit [facility] [address] [place] [address] Bernice Jacome [address] [facility], [address] [place] [address] [email or web address] documented as of this [...] documented as of this encounter Care Teams Vision Rehabilitation Therapist Relationship Specialty Start Date End Date Dayton Gould PA [address] [place] [address] PCP - General 10/05/20 documented as of this encounter Additional Source Comments The information contained in this document represents components of the legal health record. It is not the complete legal health record.[facility]
--- OUTSIDE RECORDS SUMMARY | 2025-03-27 09:37 | XMS_ITS | Encounter Summary ---
Author Organization [facility] Address [address] [facility] [address] [place] [address] Phone Care Team Providers Care Vp Communications Name Role Phone Dayton Gould Primary Care Provider + Encounter Details Date Type Department Care Team (Late st Contact Info) Description 12/15/2021 Procedure Pass [facility] Admitting Dept Virtual Department [address] [place] [address] Social History Tobacco Use Types Packs/Day Years [...] EDT Office Visit [facility] [address] [place] [address] Bernice Jacome [address] [place] [address], [address] [place] [address] [email or web address] documented as of this encounter [...] documented as of this encounter Care Teams Vp Communications Relationship Specialty Start Date End Date Dayton Gould PA [address] [place] [address] PCP - General 10/05/20 documented as of this encounter Additional Source Comments The information contained in this document represents components of the legal health record. It is not the complete legal health record.[facility]
--- OUTSIDE RECORDS SUMMARY | 2025-03-27 09:37 | XMS_ITS | Encounter Summary ---
Author Organization [facility] Address [address] [place] [address] Phone Care Team Providers Care Sulfonation Equipment Operator Name Role Phone Dayton Gould Primary Care Provider + Encounter Details Date Type Department Care Team (Late st Contact Info) Description 06/09/2024 Procedure Pass [facility], Ct Scan - [facility] [address] [place] [address] Social History Tobacco Use Types Packs/Day Years [...] 09/20/2026 9:00 AM EDT Office Visit [facility] [place] [facility] [address] [place] [address] Bernice Jacome [address] [place] [address], [address] [place] [address] [email or web address] documented as of this encounter Visit Diagnoses Not on filedocumented in this encounter Additional Health Concerns Infection Onset Date Last Indicated Resolved Time CoV-Risk Comment:Per note documentation 08/04/2024 08/04/2024 9:21 AM EST CDiff-Risk 08/04/2024 08/05/2024 08/05/2024 2:09 AM EST CoV-Risk 03/09/2025 03/09/2025 03/20/2025 1:21 AM EDT documented as of this encounter Care Teams Sulfonation Equipment Operator Relationship Specialty Start Date End Date Dayton Gould PA [address] [place] [address] PCP - General 10/05/20 documented as of this encounter Additional Source Comments The information contained in this document represents components of the legal health record. It is not the complete legal health record.[facility]
--- OUTSIDE RECORDS SUMMARY | 2025-03-27 09:37 | XMS_ITS | Encounter Summary ---
Author Organization [facility] Address [address] [place] [address] Phone Care Team Providers Care Master Cook Name Role Phone Dayton Gould Primary Care Provider + Encounter Details Date Type Department Care Team (Late st Contact Info) Description 06/07/2024 Procedure Pass [facility], Ct Scan - [facility] [address] [place] [address] Social History Tobacco Use Types Packs/Day Years [...] 06/08/2024 3:07 AM Tino Cooper RN * [place] Suicide Severity Rating Scale (Screener/Recent Self-Report) Question [...] 9:00 AM EDT Office Visit [facility] [address] [place] [address] Bernice Jacome [address] [place] [address], [address] [place] [address] [email or web address] documented as [...] documented as of this encounter Care Teams Master Cook Relationship Specialty Start Date End Date Dayton Gould PA [address] [place] [address] PCP - General 10/05/20 documented as of this encounter Additional Source Comments The information contained in this document represents components of the legal health record. It is not the complete legal health record.[facility]
--- OUTSIDE RECORDS SUMMARY | 2025-03-27 09:37 | XMS_ITS | Clinical Summary ---
Author Organization [facility] Address [address] [facility] [address] [place] [address] Care Team Providers Care Electric Meter Installer Helper Name Role Phone Unavailable Primary Care Provider [...] up to 5 days. 30 tablet 03/19/2025 03/24/20 25 Active Problems Problem Noted Date Diagnosed Date Acute pancreatitis without infection or necrosis 10/05/2020 Class 1 obesity in adult 10/05/2020 GERD (gastroesophageal reflux disease) History of DVT (deep vein thrombosis) 10/05/2020 Hypertriglyceridemia 10/05/[address] 10/05/2020 Microcytic anemia 10/05/2020 Presence of IVC filter 10/05/2020 Encounters Date Type Department Care Team Description 03/26/2025 8:00 AM EDT Office Visit [facility] [address] [place] [address] Austin Simmons 03/19/2025 8:00 AM EDT Office Visit [facility] [address] [place] [address] Austin Simmons 03/19/2025 Travel 03/13/2025 3:30 PM EDT Office Visit [facility] [address] [place] [address] Jovon Doss 03/11/2025 3:00 PM EDT Office Visit [facility] [address] [place] [address] Austin Simmons Dental caries (Primary Dx); Pain, [...] Description 04/06/2025 8:00 AM EDT Office Visit [facility] [address] [place] [address] Health Maintenance Due Date Last Done Comments CT Colonography 1980 Colonoscopy 1980 Colorectal Cancer Screening 1980 Depression Screening 1980 FIT DNA/Cologuard 1980 FIT 1980 FOBT 1980 HIV Screening 1980 Lipid Panel 1980 SDOH Screening 1980 Sigmoidoscopy 1980 Disability Screening 1980 Alcohol/Substance Use Screening 1992 Family Planning (PISQ) 1995 HPV Vaccines (1 - Male 3-dose series) 1995 Hepatitis C Screening 1998 Hepatitis B Vaccines (1 of 3 - 19+ 3-dose series) 1999 Dental Oral Exam 03/24/2018 09/20/2017 Dental Prophylaxis 03/24/2018 09/20/2017 Dental X-Ray: Full Mouth 09/21/2020 09/20/2017 DTaP/Tdap/Td Vaccines (2 - Td or Tdap) 10/27/2024 10/27/2014 COVID-19 Vaccine (3 - 2024- season) 2025 11/22/2020, 11/01/2020 Influenza Vaccine (#1) 2025 , 06/07/2022, 04/27/2021, Additional history exists Tobacco Screening 03/26/2026 03/26/2025 Dental X-Ray: Bitewings 03/27/2026 03/26/20, 03/13/2025, 03/11/2025, Additional history exists Zoster Vaccines (1 of 2) 2030 RSV Patients and Patients Aged 60 years or older (1 - 1-dose 75+ series) 2055 Pneumococcal Vaccine: Pediatrics (0 to 5 Years) and At-Risk Patients (6 to 49) Years Aged Out 09/02/2015 No longer eligible based [...] Comments BITEWING - SINGLE RADIOGRAPHIC IMAGE Routine 03/26/2025 8:00 AM EDT 30 INTRAORAL - PERIAPICAL FIRST RADIOGRAPHIC IMAGE Routine 03/26/2025 8:00 AM EDT 30 EXTRACTION, ERUPTED TOOTH REQ REMOVAL OF BONE AND/OR SECTIONING OF TOOTH Routine 03/26/2025 8:00 AM EDT 19 EXTRACTION, ERUPTED TOOTH OR EXPOSED ROOT [...] Recently Relevant to Health Maintenance Insurance [place] [id number] [place] [id number] [place] [id number] [place] [id number] [place] [id number]
== END 2025-03-27 10:03 | disposition home or self-care (01) ==
LOC: HO.HMCH 09:00
PROVIDERS: PCP Physician Assistant; Visit Provider Physician Assistant
DX: E53.8 Deficiency of other specified B group vitamins (principal)

== ENCOUNTER → 2025-03-27 08:59 | Outpatient (BNVA) | payer OTHER, SELFPAY | PROVIDERS: PCP Physician Assistant; Visit Provider Physician Assistant | DX: E53.8 Deficiency of other specified B group vitamins (principal) | CPT/HCPCS: 96372; J3420 ==

== ENCOUNTER 2025-03-30 13:43 | Outpatient (AMB) | payer OTHER, SELFPAY ==
--- OUTSIDE RECORDS SUMMARY | 2025-03-26 08:00 | XMS_ITS | Encounter Summary ---
Author Organization [employer] Address [address] [facility] [address] [place] [address] Care Team Providers Care Foster Parent Name Role Phone Unavailable Primary Care Provider Unavailabl e Reason for Visit * Reason Comments Extraction Encounter Details Date Type Department Care Team (Late st Contact Info) Description 03/26/2025 8:00 AM EDT Office Visit [facility] [address] [place] [address] Austin Simmons Social History Tobacco Use Types [...] Sign Reading Time Taken Comments Blood Pressure 122/78 03/26/2025 8:06 AM EDT Pulse 66 03/26/2025 8:06 AM EDT Temperature - - Respiratory Rate - - Oxygen Saturation - - Inhaled Oxygen Concentration - - Weight - - Height - - Body Mass Index - - documented in this encounter Progress Notes * Austin Simmons - 03/26/2025 8:00 AM EDT Extraction Procedure Note Procedure: Dental extraction Performed by: Austin Simmons Procedure Details 30 D0220 - INTRAORAL - PERIAPICAL FIRST RADIOGRAPHIC IMAGE 30 D7210 - EXTRACTION, ERUPTED TOOTH REQ REMOVAL OF BONE AND/OR SECTIONING OF TOOTH D0270 - BITEWING - SINGLE RADIOGRAPHIC IMAGE Diagnosis: The following teeth were extracted due to large carious lesion causing pain. Consent Obtained: The risks, benefits, indications, potential complications, and alternatives were explained to the patient and informed consent was obtained with good understanding. Description of procedure: Local anesthetic was administered consisting of 6.8 cc lidocaine HCL 2% with 1:100,000 epinephrine. Surgical extraction of tooth/teeth #30 was performed with surgical handpiece, elevator, and forcepswithout complications. Tooth was sectioned in a buccal- lingual direction between the two roots. Gel-foam was packed in the sockets. Gauze was placed and hemostasis was observed. Pt tolerated procedure well. Post- op instructions were reviewed with the patient. Complications: None Disposition: Discharged home with recommendations of soft diet for 2-3 days and post-op care instructions. Pain medications and antibiotics as indicated. NV: Examination and prophylaxis Cosigned by Aidan Tamayo DDS at 03/26/2025 10:12 AM EDT Associated attestation - Aidan Tamayo DDS - 03/26/2025 10:[address] Roni Naidu documented in this encounter Plan of Treatment Upcoming Encounters Date Type Department Care Team (Late st Contact Info) Description 04/06/2025 8:00 AM EDT Office Visit [facility] [address] [place] [address] Scheduled Orders Name Type Priority Associated Diagnoses Orde r Schedule 20 D 20 D RESIN-BASED COMPOSITE - 1 SURF, POSTERIOR Dental Routine [address] arting 03/26/2025 documented as of this encounter Procedures Procedure Name Priority Date/Time Associated Diagnosis Comments 30 INTRAORAL - PERIAPICAL FIRST RADIOGRAPHIC IMAGE Routine 03/26/2025 8:00 AM EDT 30 EXTRACTION, ERUPTED TOOTH REQ REMOVAL OF BONE AND/OR SECTIONING OF TOOTH Routine 03/26/2025 8:00 AM EDT BITEWING - SINGLE RADIOGRAPHIC IMAGE Routine 03/26/2025 8:00 AM EDT documented in this encounter Visit Diagnoses Not on filedocumented in this encounter
--- NOTE | 2025-03-30 13:56 | A.OFFPC_ITS ---
Vital Signs 03/30/25 13:58 Height 5 ft 10 in Weight 205 lb 8 oz BMI 29.5 BP 140/90 H Blood Pressure Location Lt brachial Position Sitting Pulse 82 Pulse Source Pulse Oximeter Temp 97.3 F Temp Source Temporal Artery Scan Pulse Oximetry (%) 96 Oxygen Delivery Method Room Air Intake Visit Reasons: annual exam Intake Note: Patient is here today for a physical. Adult Education Instructor Required: No Records And Tape Recordings Engineer: Not Required per policy Accompanied by: Self / Same As Patient Allergies cetirizine (From [facility]) Adverse Reaction (Mild, Verified 03/30/25 14:05) Nightmare lactose Adverse Reaction (Unknown, Verified 03/30/25 14:05) Diarrhea Medication List - Last Reconciled 03/30/25 by Dayton Gould PA-C [email or web address]-[email or web address],nonsteril (Premier Colostomy-Ileostomy) As directed cyanocobalamin (vitamin B-12) 1,000 mcg (15 mL) PO QWEEK 3 weeks gemfibrozil 600 mg PO BID 30 days ibuprofen 800 mg PO Q8H PRN 10 days ketoconazole 2% 1 appl topical DAILY 4 weeks lorazepam 1 mg PO BEDTIME PRN mecobalamin (vitamin B12) 1,000 mcg PO DAILY 90 days metoprolol succinate ER 25 mg PO DAILY niacin ER 500 mg (2 x 250 mg) PO DAILY 90 days omeprazole 40 mg PO DAILY PRN ostomy adhesive (Stomahesive Paste) As directed ostomy supplies (Skin Prep Wipes) As directed Tobacco use date assessed: 03/30/25 Dental Screening Dental Screen Date: 03/10/25 HPI annual exam HPI Details Patient is a 45-year-old male here today for PE. Patient has a past medical history significant for hypertriglyceridemia, GERD, status post colectomy and and has colostomy bag. Recently found to have a B12 deficiency. He how receives weekly intramuscular injections of 1000 mg of vitamin B12 to manage this deficiency. Additionally, he has a vitamin D deficiency, for which he takes supplements at home. IVC filter place: Has had trouble lying down on his left side as he feels he is suffocating and feels a tight pressure in his chest. He attributes this to his IVC filter that apparently has migrated in his broken. Does have a diploma dental assistant though is unable to get an appointment. He would like a 2nd opinion with disease intervention specialist in [place]. Of note he was apparently supposed to have an obstructive sleep apnea test though has not been able to schedule due to long work hours. Hypertriglyceridemia: Was followed by Endocrinology was lost follow up. Most recent triglyceride number elevated at 1300. Continues on niacin and gemfibroz il He reports he stopped using atorvastatin as it is causing him some polyarthralgia. .. Status post colostomy bag: Continues with colostomy bag indefinitely. He does require frequent (up to 10) bathroom breaks to empty his colostomy bag as it does fill up quick from liquid he is drinking at work. He reports his colostomy bag is functioning well Vaccines: Up-to-date with COVID, pneumonia, tetanus vaccines. Colorectal cancer screening:willing to get colonoscopy Laboratory Tests 02/27/25 07:50 RBC 4.84 Hgb 13.0 L Creatinine 0.95 Fasting Glucose 115 H AST 45 H Triglycerides 1340 H Vitamin B12 158 L 25-OH Vitamin D To escobar 27.9 L PFSH Medical History Overweight (BMI 25.0-29.9) Vitamin D deficiency Impaired fasting glucose Mixed hyperlipidemia Vitamin B12 deficiency B12 deficiency Trapezius muscle strain Ileostomy dysfunction CASSIA (generalized anxiety disorder) Sinusitis Presence of ileostomy Annual physical exam Presence of IVC filter Transaminitis Hypertriglyceridemia Inflammatory bowel diseases (IBD) Ulcerative colitis Sleep disorder breathing Infection of lip Lumbar disc herniation with radiculopathy Right knee injury Injury of lumbar spine Infected nasal abrasion Lumbar radiculopathy, chronic HLD (hyperlipidemia) Constipation by delayed colonic transit Allergic rhinitis Obesity Colitis Zinc deficiency Chronic nasal congestion Nasal sinus congestion Obese Low libido GERD without esophagitis H/O deep venous thrombosis H/O acute pancreatitis Hypertriglyceridemia Surgical History History of ileostomy History of colectomy History of ileostomy History of resection of rectum Family History Father CVD (cardiovascular disease) Mother Hypertension Diabetes Maternal Grandmother Liver cancer Maternal Grandfather CVD (cardiovascular disease) Family/Other Diabetes Social History Household Members: Other Household Members Other:: girlfriend and children Housing: House Do you presently have visiting nurse or other home services: No Alcohol intake: never Patient Tobacco Use Status: Former Tobacco user e-Cigarette/Vaping Use: Never Used Second Hand Smoke Exposure: Yes Substance Use Type: Marijuana service: No Current occupational status: employed Current occupation: [employer] Cognitive needs: No Hearing needs: No Vision needs: No Questionnaire Thrive Questionnaire Date Thrive assessed: 12/05/24 I am a: Patient What is your living situation today?: I have a steady place to live Within the past 12 months, did the food you bought not last and you didn't have the money to get more?: Never true Within the past 12 months, did you worry whether your food would run out before you got money to buy more?: Never true Do you have trouble paying for medicines?: No Do you have trouble getting transportation to medical appointments?: No Do you have trouble paying your heating and electricity bill?: No Do you have trouble taking care of your child, family member or friend?: No Do you have trouble with day-to-day activities such as bathing, preparing meals, shopping, managing finances, etc.?: No Are you currently unemployed and looking for a job?: No Are you interested in more education?: No Please select the resources that you would like help with: None Currently or been in a relationship where the following occur: No concerns reported THRIVE Score: 0 CASSIA-7 AMB Questionnaire CASSIA-7 Date CASSIA - 7 assessed: 03/10/25 Source: Developed by Drs. Augie Acosta, Radha Echavarria, Eros Robbins and colleagues, with an educational juli from [employer]. Review of Systems Const Denies body aches, Denies chills, Denies excessive sweating, Reports fatigue, Denies fever(s) and Denies headache(s) Eyes Denies blurry vision ENT Denies dysphagia, Denies vertigo, Denies dizziness, Denies headache(s), Denies hearing loss and Denies tinnitus Card Denies chest pain, Denies chest pain with activity, Denies syncope, Denies irregular heart rhythm and Denies dyspnea Resp Denies chest congestion, Denies cough, Denies hemoptysis, Denies dyspnea and Denies wheezing GI Denies abdominal pain, Denies melena, Denies hematochezia, Denies coffee ground emesis, Denies dysphagia, Denies diarrhea, Denies nausea and Denies vomiting Denies difficulty urinating, Denies dysuria, Denies urinary frequency, Denies u rinary hesitancy and Denies urinary urgency Musc Denies arthralgias, Denies limited range of motion, Denies muscle cramps and Denies muscle weakness Skin/Breast Denies rash and Denies skin ulcer Neuro Denies Abnormal speech present, Denies confusion, Denies vertigo, Denies dizziness, Denies syncope, Denies headache(s), Denies memory loss and Denies seizure-like activity Psych Denies anxiety, Denies confusion, Denies depression, Denies memory loss, Denies panic attacks and Denies paranoia Endo Denies excessive sweating, Reports fatigue, Denies flushing, Denies polydipsia and Denies polyuria Aller/Immun Denies wheezing Physical exam (Primary Care) Vital Signs: Last Vital Signs Temp 97.3 F 03/30/25 13:58 Pulse 82 03/30/25 13:58 BP 140/90 H 03/30/25 13:58 Pulse Ox 96 03/30/25 13:58 Oxygen Delivery Method Room Air 03/30/25 13:58 BMI result Body Mass Index 29.5 Tobacco/Smoking Status: Tobacco use Status Tobacco use date assessed 03/30/25 03/30/25 14:03 Patient Tobacco Use Status Former Tobacco user 03/30/25 14:03 e-Cigarette/Vaping Use Never Used 03/30/25 14:03 Thrive Assessment: Date of Thrive Assessment Date Thrive assessed 12/05/24 03/30/25 14:03 Currently or been in a relationship where the following occur: No concerns reported Const General: cooperative, comfortable, no acute distress, alert and awake; No confusion Orientation/consciousness: oriented to person, oriented to place, patient oriented x3 and No confusion HENMT Head: Yes normocephalic Ears: external ears normal and TM's normal bilaterally Face and sinus: No sinus tenderness Mouth: Normal oral and palatal mucosa present and tongue normal Teeth and gingiva: dentition normal and gingiva normal Throat: Yes posterior oropharynx normal, Yes tonsils normal and Yes uvula midline Eyes Conjunctivae: conjunctivae normal Sclerae: sclerae normal Pupils: Equal, round and reactive pupils present EOM: EOMs intact bilaterally Direct Ophthalmoscopy: No no photophobia Neck Neck: Yes no lymphadenopathy, No tender and Yes no JVD Thyroid: Thyroid normal Carotids: no bruits Chest Chest palpation & inspection: no tenderness Resp Effort & Inspection: normal respiratory effort, no audible wheezes, not labored and no stridor Auscultation: no crackles, no rales, no rhonchi and no wheezes Cardio Jugular venous distension: no JVD Rate: regular rate, not bradycardic and not tachycardic Rhythm: regular rhythm Bruits: no carotid bruits Peripheral pulses: Peripheral pulses 2+ throughout GI Inspection: Yes normal to inspection, No abdominal wall ecchymosis and No visib le herniation Palpation (GI): Soft to palpation, nontender, no guarding, not rigid and No hepatosplenomegaly present Auscultation: normoactive bowel sounds General: Yes no CVA tenderness Back/Spine/Pelvis Back: no CVA tenderness and No back tenderness Cervical Spine: cervical ROM normal Thoracic/Lumbar Spine: thoracic and lumbar spine normal to inspection, straight leg raise negative bilaterally, No thoraco-lumbar ROM limited and No lumbar spinal tenderness Skin Lesions: no lesions Rashes: no rashes Wounds: no wounds Neuro General: oriented to person, oriented to place, patient oriented x3, CN's II-XI intact bilaterally and No confusion Cranial nerves: Yes Equal, round and reactive pupils present and Yes Normal accommodation reflex present Cognition (Neuro): normal cognition Speech: No Abnormal speech present Gait exam (Neuro): Normal gait present Motor exam (neuro): 5/5 motor strength present throughout Extrem Right upper extremity: full ROM; no cyanosis Left upper extremity: full ROM; no cyanosis Right lower extremity: no edema Left lower extremity: no edema Psych Appearance: grossly normal Mental Status: mental status grossly normal Affect: normal affect Attitude: cooperative Thought process: Normal thought process present Coding Level of Care Code Est Pt Prev Care 40-64y(32204) Diagnoses Annual physical exam Z00.00 Vitamin B12 deficiency E53.8 Mixed hyperlipidemia E78.2 Impaired fasting glucose R73.01 FREDDIE (obstructive sleep apnea) G47.33 Vitamin D deficiency E55.9 Colon cancer screening Z12.11 Chronic fatigue R53.82 Fatigue type: chronic, unspecified Assessment & Plan Assessment & Plan (1) Annual physical exam: Code(s): Z00.00 - Encounter for general adult medical examination without abnormal findings Category: Medical Plan: As per HPI (2) Vitamin B12 deficiency: Code(s): E53.8 - Deficiency of other specified B group vitamins Category: Medical Plan: Most recent labs showing low B12, has been started on IM injections of B 12 weekly. (3) Mixed hyperlipidemia: Code(s): E78.2 - Mixed hyperlipidemia Category: Medical Plan: Results of his labs done a couple of weeks ago reviewed and discussed with patient Reinforced low-cholesterol diet Continue gemfibrozil 600 BID and Niacin ER 500 mg QD Will try to 7 him about with endocrinology again as triglycerides remain elevated at 1300 (4) Impaired fasting glucose: Code(s): R73.01 - Impaired fasting glucose Category: Medical Plan: His FBS was elevated at 115 mg/dl on his recent labs Reinforced low calorie/low carb diet (5) FREDDIE (obstructive sleep apnea): Code(s): G47.33 - Obstructive sleep apnea (adult) (pediatric) Category: Medical Plan: Continue using his CPAP device when sleeping at night (6) Vitamin D deficiency: Code(s): E55.9 - Vitamin D deficiency, unspecified Category: Medical Plan: Continue OTC Vitamin D supplements daily (7) Colon cancer screening: Code(s): Z12.11 - Encounter for screening for malignant neoplasm of colon Category: Medical Plan: Willing to do colonoscopy (8) Fatigue: Code(s): R53.83 - Other fatigue Category: Medical Qualifiers: Fatigue type: chronic, unspecified Qualified Code(s): R53.82 - Chronic fatigue, unspecified Plan: At this time is unclear what the etiology to his fatigue . He reports he is put in a 2 week notice at work so that he can rest as he feels some of the reason for his fatigue may be his heavy work schedule. During the visit, I discussed with the patient the importance of continuing vitamin B12 injections and vitamin D supplementation to address deficiencies. We reviewed the management of hypertriglyceridemia, emphasizing the continuation of gemfibrozil and niacin, along with dietary changes to lower triglyceride levels. I recommended a referral to endocrinology to further evaluate lipid levels and potential metabolic issues. Orders: Orders Testosterone, Free/Total 03/30/25 E53.8 - Deficiency of other specified B group vitamins Vitamin A 03/30/25 R53.82 - Chronic fatigue, unspecified Vitamin B2 (Riboflavin) 03/30/25 R53.82 - Chronic fatigue, unspecified Phosphorus 03/30/25 R53.82 - Chronic fatigue, unspecified Zinc 03/30/25 R53.82 - Chronic fatigue, unspecified Vitamin B12 and Folate 03/30/25 E53.8 - Deficiency of other specified B group vitamins Vitamin B1 03/30/25 R53.82 - Chronic fatigue, unspecified Vitamin C 03/30/25 R53.82 - Chronic fatigue, unspecified Vitamin E 03/30/25 R53.82 - Chronic fatigue, unspecified Magnesium 03/30/25 R53.82 - Chronic fatigue, unspecified Referrals Endocrinology Referral E78.1 - Pure hyperglyceridemia Gastroenterology Referral Z12.11 - Encounter for screening for malignant neoplasm of colon
[2025-03-30 13:58] VITALS: BP 140/90; PULSE 82; TEMP 36.3; O2SAT 96; BMI 29.5
--- OUTSIDE RECORDS SUMMARY | 2025-03-30 15:19 | XMS_ITS | Encounter Summary ---
Author Organization [facility] Address [address] [place] [phone] Phone Care Team Providers Care Manager Gaming Name Role Phone Dayton Gould Primary Care Provider + Encounter Details Date Type Department Care Team (Late st Contact Info) Description 06/16/2023 Procedure Pass [facility], Ct Scan - [address] [address] Social History Tobacco Use Types Packs/Day Years [...] 06/16/2023 6:47 PM Leandro Mukherjee RN * [place] Suicide Severity Rating Scale (Screener/Recent Self-Report) Question [...] 09/20/2026 9:00 AM EDT Office Visit [facility] [address] [place] [address] Bernice Jacome [address] [place] [address], [address] [place] [address] [email or web address] documented as [...] documented as of this encounter Care Teams Manager Gaming Relationship Specialty Start Date End Date Dayton Gould PA [address] [place] [address] PCP - General 10/05/20 documented as of this encounter Additional Source Comments The information contained in this document represents components of the legal health record. It is not the complete legal health record.[facility]
--- OUTSIDE RECORDS SUMMARY | 2025-03-30 15:19 | XMS_ITS | Encounter Summary ---
Author Organization [facility] Address [address] [place] [address] [place] [address] Phone Care Team Providers Care Data Security Analyst Name Role Phone Dayton Gould Primary Care Provider + Encounter Details Date Type Department Care Team (Late st Contact Info) Description 09/12/2023 Procedure Pass [facility] [address] [place] [address] Social History Tobacco Use Types Packs/Day Years [...] 09/20/2026 9:00 AM EDT Office Visit [facility] [address] [place] [address] [place] [address] Bernice Jacome [address], [address] [place] [address] [email or web address] documented as of this encounter Visit Diagnoses Not on filedocumented in this encounter Additional Health Concerns Infection Onset Date Last Indicated Resolved Time CoV-Risk Comment:Per note documentation 06/07/2024 06/07/2024 7:18 AM EST CoV-Risk Comment:Per note documentation 08/04/2024 08/04/2024 9:21 AM EST CDiff-Risk 08/04/2024 08/05/2024 08/05/2024 2:09 AM EST CoV-Risk 03/09/2025 03/09/2025 03/20/2025 1:21 AM EDT documented as of this encounter Care Teams Data Security Analyst Relationship Specialty Start Date End Date Dayton Gould PA [address] [place] [address] PCP - General 10/05/20 documented as of this encounter Additional Source Comments The information contained in this document represents components of the legal health record. It is not the complete legal health record.[facility]
--- OUTSIDE RECORDS SUMMARY | 2025-03-30 15:19 | XMS_ITS | Patient Health Record ---
Author Organization [facility] Address [address] [place] [address] Care Team Providers Care Cost Accounting Analyst Name Role Phone Dayton Gould Primary Care Provider Unavailab Pilo Johnson Jr Unavailable [phone] Allergies No Known Allergies Reason For Referral [...] Problem Status W/U Status Risk Notes Problem [id number] Ileostomy status (Z93.2) Active confirmed Problem [id number] Ulcerative colit is without complications, unspecified location (K51.90) Active confirmed Problem Hypertriglyceridemia (529491333) Hypertriglyceridemia (E78.1) Active confirmed Problem Pancreatitis (75176208) Pancreatitis (K85.90) Active confirmed Problem [id number] Acute pancreatit is without infection or necrosis, unspecified pancreatitis type (K85.90) Active confirmed Problem 65265700 Ulcerative colit is, unspecified (K51.90) Active confirmed Plan Of Treatment Pending Test Test Name Order Date LIVER PROFILE 05/31/2022 Triglycerides 05/31/2022 Lipase 05/31/2022 Insurance Providers Payer Name Payer Address Payer Phone Subscriber Number Group Number Insured Name Patient Relationship to Insured Coverage Start Date Coverage End Date [facility] Plan [address] [address] [place], [place] [id number] [phone] [id number] KAMARI DELEON Self - patient is the [...]
--- OUTSIDE RECORDS SUMMARY | 2025-03-30 15:19 | XMS_ITS | Encounter Summary ---
Author Organization [facility] Address [address] [facility] [facility] [address] [place] [address] Phone Care Team Providers Care Bankruptcy Manager Name Role Phone Dayton Gould Primary Care Provider + Encounter Details Date Type Department Care Team (Late st Contact Info) Description 07/29/2022 Procedure Pass [facility], Ct Scan - [address] [address] Social History Tobacco Use Types Packs/Day Years [...] 07/29/2022 3:45 PM Leola Flynn RN * [place] Suicide Severity Rating Scale (Screener/Recent Self-Report) Question [...] Description 09/20/2026 9:00 AM EDT Office Visit [facility] [address] [place] [address] Bernice Jacome [address] [facility], [address] [place] [address] [email or web address] [...] documented as of this encounter Care Teams Bankruptcy Manager Relationship Specialty Start Date End Date Dayton Gould PA [address] [place] [address] PCP - General 10/05/20 documented as of this encounter Additional Source Comments The information contained in this document represents components of the legal health record. It is not the complete legal health record.[facility]
--- OUTSIDE RECORDS SUMMARY | 2025-03-30 15:20 | XMS_ITS | Encounter Summary ---
Author Organization [facility] Address [address] [place] [address] Phone Care Team Providers Care Cake Cutter Machine Name Role Phone Dayton Gould Primary Care Provider + Encounter Details Date Type Department Care Team (Late st Contact Info) Description 06/07/2024 Procedure Pass [facility], Ct Scan - [facility] [address] [place] [address] Social History Tobacco Use Types Packs/Day Years [...] 06/08/2024 3:07 AM Tino Cooper RN * [place] Suicide Severity Rating Scale (Screener/Recent Self-Report) Question [...] 9:00 AM EDT Office Visit [facility] [address] [place] [address] Bernice Jacome [address] [place] [address], [address] [place] [address] [email or web address] documented [...] documented as of this encounter Care Teams Cake Cutter Machine Relationship Specialty Start Date End Date Dayton Gould PA [address] [place] [address] PCP - General 10/05/20 documented as of this encounter Additional Source Comments The information contained in this document represents components of the legal health record. It is not the complete legal health record.[facility]
--- OUTSIDE RECORDS SUMMARY | 2025-03-30 15:20 | XMS_ITS | Encounter Summary ---
Author Organization [facility] Address [address] [facility] [address] [place] [address] Phone Care Team Providers Care Inspector Tester Sorter Name Role Phone Dayton Gould Primary Care Provider + Encounter Details Date Type Department Care Team (Late st Contact Info) Description 12/11/2021 Procedure Pass [facility], Ct Scan - [address] [address] Social History Tobacco Use Types Packs/Day Years [...] 5:39 AM EDT Yoli Higginbotham RN * [place] Suicide Severity Rating Scale (Screener/Recent Self-Report) Question [...] 09/20/2026 9:00 AM EDT Office Visit [facility] [address] [place] [address] Bernice Jacome [address] [facility], [address] [place] [address] [email or web address] documented [...] documented as of this encounter Care Teams Inspector Tester Sorter Relationship Specialty Start Date End Date Dayton Gould PA [address] [place] [address] PCP - General 10/05/20 documented as of this encounter Additional Source Comments The information contained in this document represents components of the legal health record. It is not the complete legal health record.[facility]
--- OUTSIDE RECORDS SUMMARY | 2025-03-30 15:20 | XMS_ITS | Encounter Summary ---
Author Organization [facility] Address [address] [facility] [address] [place] [address] Phone Care Team Providers Care Solid Waste Manager Name Role Phone Dayton Gould Primary Care Provider + Encounter Details Date Type Department Care Team (Late st Contact Info) Description 12/15/2021 Procedure Pass [facility] Endoscopy Admitting Dept Virtual Department [address] [place] [address] Social History Tobacco Use Types Packs/Day Years [...] EDT Office Visit [facility] Medicine [address] [place] [address] Bernice Jacome [address] [place] [address], [address] [place] [address] [email or web address] documented as of this encounter [...] documented as of this encounter Care Teams Solid Waste Manager Relationship Specialty Start Date End Date Dayton Gould PA [address] [place] [address] PCP - General 10/05/20 documented as of this encounter Additional Source Comments The information contained in this document represents components of the legal health record. It is not the complete legal health record.[facility]
--- OUTSIDE RECORDS SUMMARY | 2025-03-30 15:20 | XMS_ITS | Encounter Summary ---
Author Organization [facility] Address [address] [place] [address] Phone Care Team Providers Care Post Acute Care Nurse Name Role Phone Dayton Gould Primary Care Provider + Encounter Details Date Type Department Care Team (Late st Contact Info) Description 03/10/2025 Procedure Pass [facility], Ct [facility] [address] [place] [address] Social History Tobacco Use Types Packs/Day Years [...] EDT Office Visit [facility] [place] [facility] [address] [place] [address] [place] [address] Bernice Jacome [address] [place] [address], [address] [place] [address] [email or web address] documented as of this encounter Visit Diagnoses Not on filedocumented in this encounter Additional Health Concerns Infection Onset Date Last Indicated Resolved Time CoV-Risk 03/09/2025 03/09/2025 03/20/2025 1:21 AM EDT documented as of this encounter Care Teams Post Acute Care Nurse Relationship Specialty Start Date End Date Dayton Gould PA [address] [place] [address] PCP - General 10/05/20 documented as of this encounter Additional Source Comments The information contained in this document represents components of the legal health record. It is not the complete legal health record.[facility]
--- OUTSIDE RECORDS SUMMARY | 2025-03-30 15:20 | XMS_ITS | Encounter Summary ---
Author Organization [facility] Address [address] [facility] [address] [place] [address] Phone Care Team Providers Care Craft Center Director Name Role Phone Dayton Gould Primary Care Provider + Encounter Details Date Type Department Care Team (Late st Contact Info) Description 12/14/2021 Procedure Pass [facility], [address] [address] Social History Tobacco Use Types Packs/Day Years [...] Description 09/20/2026 9:00 AM EDT Office Visit [address] [address] Bernice Jacome [address] [place] [address], [address] [place] [address] [email or web address] documented as of this [...] documented as of this encounter Care Teams Craft Center Director Relationship Specialty Start Date End Date Dayton Gould PA [address] [place] [address] PCP - General 10/05/20 documented as of this encounter Additional Source Comments The information contained in this document represents components of the legal health record. It is not the complete legal health record.[facility]
--- OUTSIDE RECORDS SUMMARY | 2025-03-30 15:20 | XMS_ITS | Clinical Summary ---
Author Organization [facility] Address [address] [place] [address] Care Team Providers Care Chief Operations Officer Name Role Phone Unavailable Primary Care Provider [...]
--- OUTSIDE RECORDS SUMMARY | 2025-03-30 15:20 | XMS_ITS | Clinical Summary ---
Author Organization [facility] Address [address] [facility] [address] [place] [address] Phone Care Team Providers Care Tuber Operator Name Role Phone Dayton Gould Primary [...] increase D5 NS infusion. Continue to monitor [id number] blood sugars with goals of eventually initiating [...] related pancreatitis and the last admitted to [facility] in September 2020 when triglyceride levels were greater than 4000 after stopping medication Was recently admitted to [facility] for recurrent pancreatitis. Was treated supportively and discharged home. He presented back to [facility] with recurrent abdominal pain, bloating, [...] low-fat diet today Regular GI is in [place] Dr. Bright Follow over the day and [...] Department Care Team Description 03/10/2025 Procedure Pass [facility], Ct [address] [address] 03/09/2025 9:25 PM EDT - 03/10/2025 3:17 AM EDT Emergency [facility] [address] [place] [address] Breanne Locke MD Discharge Disposition: Home or Self Care 02/20/2025 12:26 AM EDT - 02/20/2025 5:53 AM EDT Emergency [facility] [address] [place] [address] Samir Dee, DO Discharge Disposition: Home or Self Care 02/20/2025 Procedure Pass [facility], Ct Scan [address] [address] from Last 3 Months Immunizations Immunization Administration [...] [facility] [address] [place] [address] Bernice Jacome [address] [facility], [address] [place] [address] [email or web address] Health Maintenance Due Date Last Done Comments [...] EDT) Heterophile Ab NON-REACTI VE NON-REACTI VE [facility] Blood (Blood) 03/09/2025 10: 35 PM EDT 03/09/2025 10:49 PM EDT Breanne Locke MD NON CULTURE MICROBIOLOGY Fin al Result Performing Organization Address [facility] Co de Phone Number [address] [address] * COVID Pandemic Respiratory Viral Order (PRO) (03/09/2025 10:23 PM EDT) Test Ordered Rapid COVID has been ordered [facility] Specimen Source/Description NASAL [facility] SARS-CoV 2 (COVID-19) PCR Not Detected Not Detected [facility] Comment: SARS-CoV-2 not detected Negative results do not preclude SARS-CoV-2 infection and should not be used as the sole basis for patient management decisions. Negative results must be combined with clinical observations, patient history, and epidemiological information. Other (Nasopharyngeal swab) 03/09/2025 10:23 PM EDT 03/09/2025 11:13 PM EDT Breanne Locke MD BODY FLUIDS AND STOOLS ORDER PREETHI Final Result Performing Organization Address [facility] Co de Phone Number [address] [address] * Urinalysis w/reflex Urine Culture (03/09/2025 9:32 PM EDT) COLOR Yellow Yellow [facility] CLARITY Clear [facility] GLUCOSE Negative Negative [facility] BILI Negative Negative [facility] KETONES Negative Negative [facility] SPECIFIC GRAVITY >1.030 1.005 - 1.030 [facility] BLOOD Negative Negative [facility] PH 6.0 5.0 - 8.0 [facility] Protein-UA Negative Negative [facility] NITRITE Negative Negative [facility] Leukocyte esterase, ur Negative Negative [facility] Urine (Urine) 03/09/2025 9:3 2 PM EDT 03/09/2025 9:54 PM EDT Carlos Eduardo Cummins MD URINE ORDERABLES Final R esult Performing Organization Address [facility]/ZIP Co de Phone Number [address] [address] * TSH with reflex (03/09/2025 6:44 PM EDT) TSH 0.70 0.27 - 4.20 uIU/mL [facility] 03/09/2025 6:44 PM EDT 03/09/2025 7:00 PM EDT Carlos Eduardo Cummins MD LAB BLOOD ORDERABLES Fin al Result Performing Organization Address [facility] Co de Phone Number [address] [address] * LFTs (hepatic panel) (03/09/2025 6:44 PM EDT) Only the most recent of2 resultswithin the time period is included. ALKALINE PHOSPHATASE 101 39 - 117 U/L [facility] TOTAL BILIRUBIN 0.4 0.0 - 1.2 mg/dL [facility] DIRECT BILIRUBIN <0.1 0.0 - 0.2 mg/dL [facility] Bilirubin (Indirect) NOT CALCULATED 0 - 1.5 mg/dL [facility] AST 20 0 - 37 U/L [facility] ALT 16 0 - 40 U/L [facility] TOTAL PROTEIN 7.6 6.5 - 8.0 g/dL [facility] ALBUMIN 4.4 3.9 - 4.8 g/dL [facility] GLOBULIN 3.2 1 - 4.8 g/dL [facility] A/G Ratio 1.38 1.00 - 4.80 RATIO [facility] Blood 03/09/2025 6:44 PM EDT 03/09/2025 7:00 PM EDT us Carlos Eduardo Cummins MD LAB BLOOD ORDERABLES Fin al Result [address] [address] * (ABNORMAL) CBC and differential (03/09/2025 6:44 PM EDT) Only the most recent of2 resultswithin the time period is included. WBC 9.01 4.00 - 11.00 K/uL [facility] RBC 5.37 4.50 - 5.90 M/uL [facility] HGB 14.1 13.5 - 17.5 g/dL [facility] HCT 42.1 41.0 - 53.0 % [facility] PLT 302 150 - 450 K/uL [facility] MCV 78.4(L) 80.0 - 100.0 fL [facility] MCH 26.3(L) 27.0 - 31.0 pg [facility] MCHC 33.5 32.0 - 36.0 g/dL [facility] RDW 13.3 11.5 - 14.5 % [facility] MPV 9.7 8.4 - 12.0 fL [facility] NRBC 0.00 0.00 /100 WBCs [facility] ABSOLUTE NRBC 0.00 0.00 K/uL [facility] DIFF METHOD Auto [facility] NEUTS 46.5(L) 48.0 - 76.0 % [facility] LYMPHS 36.3 18.0 - 41.0 % [facility] MONOS 13.3(H) 4.0 - 11.0 % [facility] EOS 3.0 0.0 - 5.0 % [facility] BASOS 0.3 0.0 - 1.5 % [facility] Granulocytes, immature (%) 0.6 0.0 - 0.9 % [facility] ABSOLUTE NEUTS 4.19 1.92 - 7.60 K/uL [facility] ABSOLUTE LYMPHS 3.27 0.72 - 4.10 K/uL [facility] ABSOLUTE MONOS 1.20(H) 0.16 - 1.10 K/uL [facility] ABSOLUTE EOS 0.27 0.00 - 0.50 K/uL [facility] ABSOLUTE BASOS 0.03 0.00 - 0.15 K/uL [facility] Granulocytes, immature 0.05 0.00 - 0.09 K/uL [facility] Blood 03/09/2025 6:44 PM EDT 03/09/2025 7:00 PM EDT us Carlos Eduardo Cummins MD LAB BLOOD ORDERABLES Fin al Result Performing Organization Address [facility]/ZIP Co de Phone Number [address] [address] * C-Reactive Protein (03/09/2025 6:44 PM EDT) C REACTIVE PROTEIN <3.0 0.0 - 4.0 mg/L [facility] 03/09/2025 6:44 PM EDT 03/09/2025 7:00 PM EDT us Carlos Eduardo Cummins MD LAB BLOOD ORDERABLES Fin al Result Performing Organization Address [facility] Co de Phone Number [address] [address] * Lipase (03/09/2025 6:44 PM EDT) Only the most recent of2 resultswithin the time period is included. LIPASE 52 16 - 63 U/L [facility] Blood 03/09/2025 6:44 PM EDT 03/09/2025 7:00 PM EDT Carlos Eduardo Cummins MD LAB BLOOD ORDERABLES Fin al Result Performing Organization Address [facility]/ZIP Co de Phone Number [address] [address] * (ABNORMAL) Basic metabolic panel (03/09/2025 6:44 PM EDT) Only the most recent of2 resultswithin the time period is included. SODIUM 136 133 - 146 mmol/L [facility] CHLORIDE 104 96 - 108 mmol/L [facility] POTASSIUM 4.1 3.3 - 5.1 mmol/L [facility] Comment:Specimen slightly he molyzed, result may be falsely elevated. CO2 21 21 - 35 mmol/L [facility] BUN 11 6 - 19 mg/dL [facility] CREATININE 0.80 0.5 - 1.5 mg/dL [facility] GLUCOSE 116(H) 70 - 99 mg/dL [facility] CALCIUM 9.4 8.4 - 10.3 mg/dL [facility] EGFR 112 >59 mL/min/1.7 3m2 [facility] Comment:Estimated glomerular filtration rate calculated using the CKD-EPI refit equation. ANION GAP 15 10 - 20 mmol/L [facility] Blood 03/09/2025 6:44 PM EDT 03/09/2025 7:00 PM EDT us Carlos Eduardo Cummins MD LAB BLOOD ORDERABLES Fin al Result [address] [address] * CT ABDOMEN/PELVIS WITH CONTRAST (02/20/2025 2:46 [...] HS Gen5 <6 0 - 14 ng/L [facility] Blood 02/19/2025 11:0 2 PM EDT 02/19/2025 11:12 PM EDT Elias Gotti MD LAB BLOOD ORDERAB LES Final Result Performing Organization Address [facility] Co de Phone Number [address] [address] * ECG 12-LEAD (02/19/2025 9:27 PM EDT) Ventricular Rate EKG/MIN 85 BPM [facility] Atrial Rate 85 BPM [facility] ND Interval 144 ms [facility] QRS Duration 82 ms [facility] QT Interval 382 ms [facility] QTC Interval 454 ms [facility] P [place] 56 degrees [facility] R Wave [place] 23 degrees [facility] T Wave [place] 11 degrees [facility] 02/19/2025 9:27 PM EDT 02/20/2025 11:38 PM EDT Narrative [facility] - 02/20/2025 11:38 PM EDT Normal sinus rhythm Possible Left atrial enlargement Nonspecific T wave abnormality Abnormal ECG When compared with ECG of 30-Nov-2024 22:03, No significant change was found Confirmed by Timothy Vegas ([id number]) on 02/20/2025 11:38:54 PM Elias Gotti MD ECG ORDERABLES F inal Result Performing Organization Address [facility] Co de Phone Number [email or web address] * (ABNORMAL) Lipid panel (02/29/2024 5:05 PM EDT) HDL 21 mg/dL [facility] Comment: Interpretation <40 mg/dL: Low HDL cholesterol (major risk factor for CHD) Greater than or equal to 60 mg/dL: High HDL cholesterol ( negative risk factor for CHD) HDL - cholesterol is affected by a number of factors, e.g. smoking, excerise, hormones, sex and age. CHOLESTEROL 764(H) 0 - 240 mg/dL [facility] TRIGLYCERIDES 3,858(H) 30 - 160 mg/dL [facility] LDL NOT CALCULATED 50 - 129 mg/dL [facility] Comment: Unable to calculate due to elevated TRIG of greater than 400. A measured LDL will be performed. CARDIAC RISK RATIO 36.4(H) 3.4 - 5.0 [facility] Blood 02/29/2024 5:05 PM EDT 02/29/2024 5:07 PM EDT us Alexander Foster PA-C LAB BLOOD ORDERABLES Final Re sult [facility] [address] [place] [address] from Last 3 Months or Most Recently Relevant to Health Maintenance Insurance * Guarantor: Justino Sheets Account Type Relation to Patient Date of Phone Billing Address Personal/Family Self 1980 [address] [facility] [address] [facility] [place] [address] [employer] [address] [place] [address] [employer] [address] [place] [id number] [employer] Advance Directives For more information, please contact: [phone] (9AM - 5PM Gayle/[facility], Sunday-Sunday) Documents on File Type Date Recorded Patient Communications Maintainer Expl anation Healthcare Proxy 03/11/2024 4:11 PM [...] presumed on basis of a Care Teams Tuber Operator Relationship Specialty Start Date End Date Dayton Gould PA [address] [place] [address] PCP - General 10/05/20 Additional Source Comments The information contained in this document represents components of the legal health record. It is not the complete legal health record.[facility]
--- OUTSIDE RECORDS SUMMARY | 2025-03-30 15:20 | XMS_ITS | Encounter Summary ---
Author Organization [facility] Address [address] [place] [address] Phone Care Team Providers Care Hardwood Floor Installation Helper Name Role Phone Dayton Gould Primary Care Provider + Encounter Details Date Type Department Care Team (Late st Contact Info) Description 06/09/2024 Procedure Pass [facility], Ct Scan - [facility] [address] [place] [address] Social History Tobacco Use Types Packs/Day Years [...] 09/20/2026 9:00 AM EDT Office Visit [facility] [place] [facility] [address] [place] [address] Bernice Jacome [address] [place] [address], [address] [place] [address] [email or web address] documented as of this encounter Visit Diagnoses Not on filedocumented in this encounter Additional Health Concerns Infection Onset Date Last Indicated Resolved Time CoV-Risk Comment:Per note documentation 08/04/2024 08/04/2024 9:21 AM EST CDiff-Risk 08/04/2024 08/05/2024 08/05/2024 2:09 AM EST CoV-Risk 03/09/2025 03/09/2025 03/20/2025 1:21 AM EDT documented as of this encounter Care Teams Hardwood Floor Installation Helper Relationship Specialty Start Date End Date Dayton Gould PA [address] [place] [address] PCP - General 10/05/20 documented as of this encounter Additional Source Comments The information contained in this document represents components of the legal health record. It is not the complete legal health record.[facility]
--- OUTSIDE RECORDS SUMMARY | 2025-03-30 15:20 | XMS_ITS | Encounter Summary ---
Author Organization [facility] Address [address] [facility] [address] [place] [address] Phone Care Team Providers Care Associate Professor Of Automation Name Role Phone Dayton Gould Primary Care Provider + Encounter Details Date Type Department Care Team (Late st Contact Info) Description 02/20/2025 Procedure Pass [facility] [place] [facility], Ct Scan - [facility] [address] [place] [address] Social History Tobacco Use Types Packs/Day Years [...] EDT Office Visit [facility] [place] [facility] [address] [place] [address] [place] [address] Bernice Jacome [address] [place] [address], [address] [place] [address] [email or web address] documented as of this encounter Visit Diagnoses Not on filedocumented in this encounter Additional Health Concerns Infection Onset Date Last Indicated Resolved Time CoV-Risk 03/09/2025 03/09/2025 03/20/2025 1:21 AM EDT documented as of this encounter Care Teams Associate Professor Of Automation Relationship Specialty Start Date End Date Dayton Gould PA [address] [place] [address] PCP - General 10/05/20 documented as of this encounter Additional Source Comments The information contained in this document represents components of the legal health record. It is not the complete legal health record.[facility]
--- OUTSIDE RECORDS SUMMARY | 2025-03-30 15:20 | XMS_ITS | Encounter Summary ---
Author Organization [facility] Address [address] [facility] [address] [place] [address] Phone Care Team Providers Care Door Glass Installer Name Role Phone Dayton Gould Primary Care Provider + Encounter Details Date Type Department Care Team (Late st Contact Info) Description 08/24/2024 Procedure Pass [facility], Ct Scan - [facility] [address] [place] [address] Social History Tobacco Use Types Packs/Day Years [...] EDT Office Visit [facility] [place] [facility] [address] [place] [address] [place] [address] Bernice Jacome [address] [place] [address], [address] [place] [address] [email or web address] documented as of this encounter Visit Diagnoses Not on filedocumented in this encounter Additional Health Concerns Infection Onset Date Last Indicated Resolved Time CoV-Risk 03/09/2025 03/09/2025 03/20/2025 1:21 AM EDT documented as of this encounter Care Teams Door Glass Installer Relationship Specialty Start Date End Date Dayton Gould PA [address] [place] [address] PCP - General 10/05/20 documented as of this encounter Additional Source Comments The information contained in this document represents components of the legal health record. It is not the complete legal health record.[facility]
--- OUTSIDE RECORDS SUMMARY | 2025-03-30 15:20 | XMS_ITS | Clinical Summary ---
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 Name Role Phone Unavailable Primary Care [...] thrombosis) 10/05/2020 Hypertriglyceridemia 10/05/[address] ([facility] 10/05/2020 Microcytic anemia 10/05/2020 Presence of IVC filter 10/05/2020 Encounters Date Type Department Care Team Description 03/26/2025 8:00 AM EDT Office Visit [facility] [address] [place] [address] Austin Simmons 03/19/2025 8:00 AM EDT Office Visit [facility] [address] [place] [address] Austin Simmons 03/19/2025 Travel 03/13/2025 3:30 PM EDT Office Visit [facility] [address] [place] [address] Jovon Doss 03/11/2025 3:00 PM EDT Office Visit [facility] [address] [place] [address] Austin Simmons Dental caries (Primary Dx); Pain, [...] Description 04/06/2025 8:00 AM EDT Office Visit [facility] [address] [place] [address] Health Maintenance Due Date Last Done Comments [...] Most Recently Relevant to Health Maintenance Insurance [facility] [id number] [place] [id number] [place] [id number]
== END 2025-03-30 14:44 | disposition home or self-care (01) ==
PROVIDERS: PCP Physician Assistant; Visit Provider Physician Assistant
DX: Z00.00 Encounter for general adult medical examination without abnormal findings (principal); E53.8 Deficiency of other specified B group vitamins; E78.2 Mixed hyperlipidemia; R73.01 Impaired fasting glucose; G47.33 Obstructive sleep apnea (adult) (pediatric); E55.9 Vitamin D deficiency, unspecified; Z12.11 Encounter for screening for malignant neoplasm of colon; R53.82 Chronic fatigue, unspecified

== ENCOUNTER → 2025-03-30 13:43 | Outpatient (BNVA) | payer OTHER, SELFPAY | PROVIDERS: PCP Physician Assistant; Visit Provider Physician Assistant | DX: Z00.00 Encounter for general adult medical examination without abnormal findings (principal); E53.8 Deficiency of other specified B group vitamins; Z95.828 Presence of other vascular implants and grafts; E78.5 Hyperlipidemia, unspecified; E78.2 Mixed hyperlipidemia; R73.01 Impaired fasting glucose; G47.33 Obstructive sleep apnea (adult) (pediatric); E55.9 Vitamin D deficiency, unspecified; R53.82 Chronic fatigue, unspecified; E78.1 Pure hyperglyceridemia | CPT/HCPCS: 99396 ==

== ENCOUNTER 2025-04-03 10:52 | Outpatient (AMB) | payer OTHER, SELFPAY ==
--- OUTSIDE RECORDS SUMMARY | 2025-03-13 15:30 | XMS_ITS | Encounter Summary ---
Author Organization [employer] Address [address] [place] [address] Care Team Providers Care Toucher Up Name Role Phone Unavailable Primary Care Provider Unavailabl e Reason for Visit * Reason Comments Dental Pain Encounter Details Date Type Department Care Team ([facility] st Contact Info) Description 03/13/2025 3:30 PM EDT Office Visit [facility] ADULT D[facility] [address] [place] [address] Jena Dossricio [address] [place] [address] Social History Tobacco Use Types Packs/Day Years [...] PM EDT documented as of this encounter Progress Notes * Jovon Doss - 03/13/2025 3:30 PM EDT Dental procedures in this visit D0140 - LIMITED ORAL EVALUATION - PROBLEM FOCUSED 19 (Completed) Service provider: Jovon Doss Billing provider: Valencia Le DDS D0220 - INTRAORAL - PERIAPICAL FIRST RADIOGRAPHIC IMAGE 19 (Completed) Service provider: Jovon Doss Billing provider: Valencia Le DDS D0270 - BITEWING - SINGLE RADIOGRAPHIC IMAGE (Completed) Service provider: Jovon Doss Billing provider: Valencia Le DDS Patient ID: Justino Sheets is a 44 y.o. male. Time Out: Date: 03/13/2025 Location: [facility] Tooth: #19 Procedure: Exam Verified the above with patient, ex assistant/program director, and provider. Confirmed via patient's chart, intraorally and by radiographs. Pit Slagman: not applicable 44 y.o. y/o male presents for limited exam with Dr. Jovon Doss Medical history: Reviewed in EHR Vitals: There were no vitals taken for this visit. Allergies: Reviewed in EHR Medications: Reviewed in EHR Radiographs taken: PA and BW CHIEF COMPLAINT: I'm in pain from my tooth on the left side Discussion: Patient presented to the dental office as an emergency. The patient had initially presented to [facility] but was referred to [facility] for further evaluation. Clinical examination revealed tooth #18 with a carious lesion on the occluso- mesial portion of the crown. Extraoral swelling was noted on the left side of the face. Radiographic evaluation demonstrated a radiolucency extending to the nerve and root, as well as radiolucency present in the furcation area. The patient reported being prescribed Augmentin but admitted to discontinuing the medication prematurely. The patient was informed of the importance of resuming and completing the full antibiotic regimen, as incomplete treatment may prevent resolution of symptoms. The patient was advised that extraction of tooth #18 could not be performed during today???s visit and should proceed with the scheduled appointment for extraction. The patient was released in stable condition, with all questions answered and instructions understood. Provider: Dr. Jovon Doss Dental Boat Tender: Arlyn Aguirre Attending: Dr. Le * Valencia Le DDS - 03/13/2025 3:30 PM EDT I have reviewed the documentation and dental procedures completed by the rendering provider, Jovon Doss DDS, and approve their chart entries for this visit. INOCENCIO Fernando DDS documented in this encounter Plan of Treatment Upcoming Encounters Date Type Department Care Team (Late st Contact Info) Description 04/06/2025 8:00 AM EDT Office Visit [facility] ADULT DENTAL [address] [place] [address] documented as of this encounter Procedures Procedure Name Priority Date/Time Associated Diagnosis Comments 19 LIMITED ORAL EVALUATION - PROBLEM FOCUSED Routine 03/13/2025 3:30 PM EDT 19 INTRAORAL - PERIAPICAL FIRST RADIOGRAPHIC IMAGE Routine 03/13/2025 3:30 PM EDT BITEWING - SINGLE RADIOGRAPHIC IMAGE Routine 03/13/2025 3:30 PM EDT documented in this encounter Visit Diagnoses Not on filedocumented in this encounter
--- OUTSIDE RECORDS SUMMARY | 2025-04-02 21:33 | XMS_ITS | Encounter Summary ---
Author Organization [facility] Address [address] [place] [id number] Phone Care Team Providers Care Analytics Manager Name Role Phone Dayton Gould Primary Care Provider + Reason for Visit * Reason Comments Stoma Complication Constipation Encounter Details Date Type Department Care Team ([facility] st Contact Info) Description 04/02/2025 9:33 PM EDT - 04/03/2025 4:11 AM EDT Emergency [facility] [address] [place] [address] Discharge Disposition: Home or Self Care Social [...] as food, clothing, or medical care? No 04/02/2025 In the past 12 months have y ou been in a relationship with a person who hurts, threatens, or tries to control you? No 04/02/2025 Are you denied basic needs s uch as food, clothing, or medical care? No 04/02/2025 In the past 12 months have y ou been in a relationship with a person who hurts, threatens, or tries to control you? No 04/02/2025 Sex and Gender Information Value Date Recorded Sex Assigned at Male 10/05/2020 10:54 AM EDT Legal Sex Male 9:23 AM EDT Gender Identity Male 10/05/2020 10:54 AM EDT Sexual Orientation Straight 01/07/2024 11 :54 PM EDT documented as of this encounter Last Filed Vital Signs Vital Sign Reading Time Taken Comments Blood Pressure 130/77 04/03/2025 4:11 AM EDT Pulse 65 04/03/2025 4:11 AM EDT Temperature 35.5 C (95.9 F) 04/03/2025 4:11 AM EDT Respiratory Rate 18 04/03/2025 4:11 AM EDT Oxygen Saturation 98% 04/03/2025 4:11 AM EDT Inhaled Oxygen Concentration - - Weight 93.4 kg (206 lb) 04/02/2025 11:42 PM EDT Height 180.3 cm (5' 11 ) 04/02/2025 11:42 PM EDT Body Mass Index 28.73 04/02/2025 11:42 PM EDT documented in this encounter Functional Status * Calculated C-SSRS Risk Score (Lifetime/Recent) Answer Date of Assessment Author No Risk Indicated 04/02/2025 5:17 PM EDT Fabby Lynne RN * [place] Suicide Severity Rating Scale (Screener/Recent Self-Report) Question Answer Date of Assessment Author 1. Wish to be (Past 1 Month) No 5:17 PM EDT Fabby Lynne RN 2. Non-Specific Active Suici william Thoughts (Past 1 Month) No 04/02/2025 5:17 PM EDT Michelle Lynne RN 6. Suicidal Behavior (Lifetime) No 5:17 PM EDT Fabby Lynne RN documented as of this encounter Discharge Instructions * Discharge Instructions* Henna Morales PA-C - 04/03/2025 2:50 AM EDT Please, follow up with your PCP within 1-2 days for further management and discuss referral to inflammatory bowel disease specialist for definitive treatment. Return to the ED for any new or concerning symptoms documented in this encounter Medications at Time of Discharge clonazePAM (KLONOPIN) 1 MG tablet Take 1 mg by mouth daily as needed for anxiety. gemfibroziL (LOPID) 600 MG tablet Take 1 tablet (600 mg total) by mouth 2 (two) times a day. 180 tablet 06/13/2024 niacin 250 mg TbER Take 2 tablets by mouth every morning. 12/10/2023 omeprazole (PRILOSEC) 40 MG capsule Take 40 mg by mouth daily. 01/23/2024 oxymetazoline (AFRIN) 0.05 % nasal spray 2 sprays by Nasal route 2 (two) times a day as needed for congestion. celecoxib (CELEBREX) 100 MG capsule Take 1 capsule (100 mg total) by mouth 2 (two) times a day. 14 capsule 11/30/2024 dicyclomine (BENTYL) 10 MG capsule Take 1 capsule (10 mg total) by mouth 4 (four) times a day before meals and nightly. 20 capsule 03/10/2025 metoprolol succinate (TOPROL-XL) 25 MG 24 hr tablet Take 1 tablet (25 mg total) by mouth daily. 90 tablet 1 07/08/2024 documented as of this encounter Consult Notes * Je Anders PA-C - 04/03/2025 1:53 AM EDT General Surgery Consult Note The patient is a 45 y.o. year old male who has a significant past medical history of ulcerative colitis status post colectomy at the age of 13 [address] now diagnosed with Crohn's disease, hypertriglyceridemia, pancreatitis, DVT with IVC filter who presents complaining of abdominal pain and distention. States that he has had history of inflammation of the stoma at his ileostomy sitein the past requiring dilation and steroids. He notes this used to be a frequent occurrence and hislast intervention was at [facility]. He cannot recall if this was done via surgery or gastroenterology. He states today the pain began abruptly after eating peanut butter. He does have stool flatus output in the bag. In the ED was noted to be afebrile and nontoxic-appearing with reassuring labs. CT abdomen pelvis was performed showing distended small bowel at the level of the right lower quadrant stoma no bowel wall thickening or inflammation. Fatty liver. Problem List: Patient Active Problem List Diagnosis Acute pancreatitis without infection or necrosis Hypertriglyceridemia Class 1 obesity in adult Microcytic anemia History of DVT (deep vein thrombosis) Presence of IVC filter GERD (gastroesophageal reflux disease) Ileostomy in place Medical History: Past Medical History: Diagnosis Date Anxiety disorder Chronic rhinitis Crohn's disease Hypertriglyceridemia Pancreatitis Surgical History: Past Surgical History: Procedure Laterality Date COLON SURGERY ESOPHAGOGASTRODUODENOSCOPY N/A 12/15/2021 Performed by Satya Vora MD at [facility] ENDOSCOPY ILEOSTOMY Medications: Current Facility-Administered Medications Medication Dose Route Frequency Provider Last Rate Last Admin sodium chloride (NS) 0.9 % syringe flush 3 mL 3 mL Intravenous PRN Henna Morales PA-C Current Outpatient Medications Medication Sig Dispense Refill Last Dispense clonazePAM (KLONOPIN) 1 MG tablet Take 1 mg by mouth daily as needed for anxiety. Unknown (patient-reported) gemfibroziL (LOPID) 600 MG tablet Take 1 tablet (600 mg total) by mouth 2 (two) times a day. 180 tablet 0 Unknown (outside pharmacy) niacin 250 mg TbER Take 2 tablets by mouth every morning. Unknown (patient-reported) omeprazole (PRILOSEC) 40 MG capsule Take 40 mg by mouth daily. Unknown (patient-reported) oxymetazoline (AFRIN) 0.05 % nasal spray 2 sprays by Nasal route 2 (two) times a day as needed for congestion. Unknown (patient-reported) celecoxib (CELEBREX) 100 MG capsule Take 1 capsule (100 mg total) by mouth 2 (two) times a day. (Patient not taking: Reported on 04/02/2025) 14 capsule 0 Unknown (outside pharmacy) dicyclomine (BENTYL) 10 MG capsule Take 1 capsule (10 mg total) by mouth 4 (four) times a day before meals and nightly. (Patient not taking: Reported on 04/02/2025) 20 capsule 0 Unknown (outside pharmacy) metoprolol succinate (TOPROL-XL) 25 MG 24 hr tablet Take 1 tablet (25 mg total) by mouth daily. (Patient not taking: Reported on 04/02/2025) 90 tablet 1 Unknown (outside pharmacy) Allergies: No Known Allergies Social History: Social History Tobacco Use Smoking status: Former Smokeless tobacco: Never Vaping Use Vaping status: never used Substance Use Topics Alcohol use: Never Drug use: Yes Types: Marijuana Family History: Family History Problem Relation Age of Onset Diabetes mellitus Mother ROS: Review of Systems Constitutional: Negative for fever. Respiratory: Negative. Cardiovascular: Negative. Gastrointestinal: Positive for abdominal pain. Genitourinary: Negative. Musculoskeletal: Negative. Vitals: Blood pressure 134/85, pulse 69, temperature 36.5 ??C (97.7 ??F), temperature source Oral, resp. rate 16, height 180.3 cm (5' 11 ), weight 93.4 kg (206 lb), SpO2 100%. Physical Exam Vitals and nursing note reviewed. Constitutional: Appearance: He is not ill-appearing. HENT: Head: Normocephalic. Eyes: Extraocular Movements: Extraocular movements intact. Cardiovascular: Rate and Rhythm: Normal rate. Pulmonary: Effort: Pulmonary effort is normal. Abdominal: Comments: Well-healed midline abdominal incision. Ileostomy in place. Awaiting material to change ostomy and evaluate stoma Skin: General: Skin is warm. Neurological: Mental Status: He is alert and oriented to person, place, and time. Psychiatric: Mood and Affect: Mood normal. Labs: Lab Results Component Value Date WBC 8.50 04/02/2025 RBC 4.83 04/02/2025 HGB 12.9 (L) 04/02/2025 HCT 37.4 (L) 04/02/2025 PLT 363 04/02/2025 MCV 77.4 (L) 04/02/2025 MCH 26.7 (L) 04/02/2025 MCHC 34.5 04/02/2025 RDW 12.6 04/02/2025 MVP 8.9 04/02/2025 NRBCA 0.00 04/02/2025 Lab Results Component Value Date NA 136 04/02/2025 K 3.8 04/02/2025 CL 104 04/02/2025 CO2 21 04/02/2025 BUN 8 04/02/2025 CRE 0.80 04/02/2025 GLU 120 (H) 04/02/2025 CA 9.4 04/02/2025 GFR 111 04/02/2025 ANION 15 04/02/2025 Lab Results Component Value Date TP 7.0 04/02/2025 ALB 4.0 04/02/2025 GLOB 3.0 04/02/2025 SGOT 14 04/02/2025 SGPT 12 04/02/2025 ALKP 108 04/02/2025 TBILI <0.2 04/02/2025 DBILI 0.1 04/02/2025 Imaging: CT Abdomen/Pelvis Narrative: CT ABDOMEN/PELVIS WITH CONTRAST Reason for exam (per EHR order): * Abdominal pain, acute, nonlocalized TECHNIQUE: Multidetector-row CT of the abdomen and pelvis was performed after administration of intravenous contrast using tailored dose modulation techniques. Images were reconstructed in the axial, coronal, and sagittal planes. COMPARISON: CT ABDOMEN/PELVIS WITH CONTRAST FINDINGS: Lower Chest: Bibasilar atelectasis. Liver: Diffusely hypoattenuating. Biliary System: Normal. Pancreas: Normal. Spleen: Subcentimeter hypodensity too small to characterize. Adrenal Glands: Normal. Kidneys: Subcentimeter right renal hypodensities too small to characterize. No hydronephrosis. Bowel: Proctocolectomy with right lower quadrant end ileostomy. Distended small bowel to the level of the ostomy. No bowel wall thickening or perienteric fat stranding. Mesentery, Omentum, and Peritoneum: Normal. Pelvic Organs: Normal. Lymph Nodes: Normal. Vasculature: Inferior vena cava filter. Bones and Soft Tissues: Multilevel degenerative changes. Impression: 1. Distended small bowel to the level of the right lower quadrant stoma. No bowel wall thickening or inflammation. 2. Fatty liver. There are no active hospital problems to display for this patient. Quality Clinical Documentation: Assessment & Plan Ileostomy dysfunction 45-year-old male with a history of ulcerative colitis status post colectomy now with Crohn's disease and prior peristomal inflammation requiring steroids and dilation of the ostomy presenting with abdominal pain found to have distended small bowel at the level of the right lower quadrant stoma without clear thickening or inflammation of the bowel wall. Fortunately patient is not obstructed and has flatus and stool in the bag. The stoma is extremely small but not significantly edematous. Feel like this is more mechanical than acute IBD flare. Unable to pass even a pinky finger into the opening. Case was discussed with Dr. Reed will plan to use a pavon catheter and attempt to dilate slightly bigger. He will need follow up with an IBD specialist for halfway management and possible revision. Following pavon catheter dilation copious stool output. No complications to procedure Bowel again does not appear acutely inflamed and this is all likely mechanical due to the stoma's small size since it has not been revised since he was 13. He has follow up with his PCP today and he was advised tofollow up with GI surgery at [facility] Code Status: Full Code This case was or will be discussed with Dr. Reed A total of 45 minutes spent. Je Anders PA-C Cosigned by Jo Ann Reed MD at 04/03/2025 11:52 AM EDT documented in this encounter ED Notes * Gregoria Richardson RN - 04/03/2025 4:10 AM EDT ED Discharge Nursing Note Pt medically cleared and prepared for discharge. Discharge instructions reviewed, pt verbalized understanding. Pt A&O x4, ambulatory with a steady gait. Pt denies any new or worsening medical complaints. Pt has safe ride home, PIV removed. All belongings with patient, all safety maintained. * Gregoria Richardson RN - 04/02/2025 11:47 PM EDT ED Nursing Progress Note Upon assessment, pt appears in NAD, RR even and unlabored. Pt denies any new or worsening medical complaints at this time. Call sun within reach. All safety maintained. * Fabby Lynne RN - 04/02/2025 5:15 PM EDT Patient has an ostomy and has had very little output x2 days. Area around the ostomy is swollen andpatient states this has happened before. Patient having pain at that site. documented in this encounter Plan of Treatment Upcoming Encounters Date Type Department Care Team (Late st Contact Info) Description 09/20/2026 9:00 AM EDT Office Visit [facility] [address] [place] [address] Bernice Jacome [address] [place] [address], [address] [place] [address] [email or web address] documented as of this encounter Procedures Procedure Name Priority Date/Time Associated Diagnosis Comments CT ABDOMEN/PELVIS WITH CONTRAST Routine 04/03/2025 12:29 AM EDT LFTS (HEPATIC PANEL) STAT 04/02/2025 11:09 PM EDT CBC AND DIFFERENTIAL STAT 04/02/2025 11:09 PM EDT MAGNESIUM STAT 04/02/2025 11:09 PM EDT LIPASE STAT 04/02/2025 11:09 PM EDT BASIC METABOLIC PANEL STAT 04/02/2025 11:09 PM EDT documented in this encounter Results * CT ABDOMEN/PELVIS WITH CONTRAST (04/03/2025 12:29 AM EDT) Anatomical Region Laterality Modality Abdomen, Pelvis Computed Tomogra phy 04/03/2025 12:4 8 AM EDT Impressions 04/03/2025 1:05 AM EDT 1. Distended small bowel to the level of the right lower quadrant stoma. No bowel wall thickening or inflammation. 2. Fatty liver. Narrative 04/03/2025 1:[address] ABDOMEN/PELVIS WITH CONTRAST Reason for exam (per EHR order): * Abdominal pain, acute, nonlocalized TECHNIQUE: Multidetector-row CT of the abdomen and pelvis was performed after administration of intravenous contrast using tailored dose modulation techniques. Images were reconstructed in the axial, coronal, and sagittal planes. COMPARISON: CT ABDOMEN/PELVIS WITH CONTRAST FINDINGS: Lower Chest: Bibasilar atelectasis. Liver: Diffusely hypoattenuating. Biliary System: Normal. Pancreas: Normal. Spleen: Subcentimeter hypodensity too small to characterize. Adrenal Glands: Normal. Kidneys: Subcentimeter right renal hypodensities too small to characterize. No hydronephrosis. Bowel: Proctocolectomy with right lower quadrant end ileostomy. Distended small bowel to the level of the ostomy. No bowel wall thickening or perienteric fat stranding. Mesentery, Omentum, and Peritoneum: Normal. Pelvic Organs: Normal. Lymph Nodes: Normal. Vasculature: Inferior vena cava filter. Bones and Soft Tissues: Multilevel degenerative changes. Procedure Note Nicolás Russo MD - 04/03/2025 CT ABDOMEN/PELVIS WITH CONTRAST Reason for exam (per EHR order): * Abdominal pain, acute, nonlocalized TECHNIQUE: Multidetector-row CT of the abdomen and pelvis was performed afteradministration of intravenous contrast using tailored dose modulationtechniques. Images were reconstructed in the axial, coronal, and sagittalplanes. COMPARISON: CT ABDOMEN/PELVIS WITH CONTRAST FINDINGS: Lower Chest: Bibasilar atelectasis. Liver: Diffusely hypoattenuating. Biliary System: Normal. Pancreas: Normal. Spleen: Subcentimeter hypodensity too small to characterize. Adrenal Glands: Normal. Kidneys: Subcentimeter right renal hypodensities too small tocharacterize. No hydronephrosis. Bowel: Proctocolectomy with right lower quadrant end ileostomy. Distendedsmall bowel to the level of the ostomy. No bowel wall thickening orperienteric fat stranding. Mesentery, Omentum, and Peritoneum: Normal. Pelvic Organs: Normal. Lymph Nodes: Normal. Vasculature: Inferior vena cava filter. Bones and Soft Tissues: Multilevel degenerative changes. IMPRESSION: 1. Distended small bowel to the level of the right lower quadrant stoma.No bowel wall thickening or inflammation. 2. Fatty liver. us Henna Morales PA-C IMG CT ABD/PELVIS Final Res ult * Magnesium (04/02/2025 11:09 PM EDT) MAGNESIUM 2.1 1.6 - 2.6 mg/dL [facility] Blood 04/02/2025 11:0 9 PM EDT 04/02/2025 11:11 PM EDT Henna Russodarshan PA-C LAB BLOOD ORDERABLES Final Result [address] [address] * Lipase (04/02/2025 11:09 PM EDT) LIPASE 58 16 - 63 U/L [facility] Blood 04/02/2025 11:0 9 PM EDT 04/02/2025 11:11 PM EDT Henna Morales PA-C LAB BLOOD ORDERABLES Final Result Performing Organization Address [facility] Co de Phone Number [address] [address] * LFTs (hepatic panel) (04/02/2025 11:09 PM EDT) ALKALINE PHOSPHATASE 108 39 - 117 U/L [facility] TOTAL BILIRUBIN <0.2 0.0 - 1.2 mg/dL [facility] DIRECT BILIRUBIN 0.1 0.0 - 0.2 mg/dL [facility] Bilirubin (Indirect) NOT CALCULATED 0 - 1.5 mg/dL [facility] AST 14 0 - 37 U/L [facility] ALT 12 0 - 40 U/L [facility] TOTAL PROTEIN 7.0 6.5 - 8.0 g/dL [facility] ALBUMIN 4.0 3.9 - 4.8 g/dL [facility] GLOBULIN 3.0 1 - 4.8 g/dL [facility] A/G Ratio 1.33 1.00 - 4.80 RATIO [facility] Blood 04/02/2025 11:0 9 PM EDT 04/02/2025 11:11 PM EDT Henna Russodarshan PA-C LAB BLOOD ORDERABLES Final Result Performing Organization Address City/[facility]/ZIP Co de Phone Number [address] [address] * (ABNORMAL) Basic metabolic panel (04/02/2025 11:09 PM EDT) SODIUM 136 133 - 146 mmol/L [facility] CHLORIDE 104 96 - 108 mmol/L [facility] POTASSIUM 3.8 3.3 - 5.1 mmol/L [facility] Comment:Specimen slightly he molyzed, result may be falsely elevated. CO2 21 21 - 35 mmol/L [facility] BUN 8 6 - 19 mg/dL [facility] CREATININE 0.80 0.5 - 1.5 mg/dL [facility] GLUCOSE 120(H) 70 - 99 mg/dL [facility] CALCIUM 9.4 8.4 - 10.3 mg/dL [facility] EGFR 111 >59 mL/min/1.7 3m2 [facility] Comment:Estimated glomerular filtration rate calculated using the CKD-EPI refit equation. ANION GAP 15 10 - 20 mmol/L [facility] Blood 04/02/2025 11:0 9 PM EDT 04/02/2025 11:11 PM EDT us Henna Morales PA-C LAB BLOOD ORDERABLES Final Result [facility] [address] [place] [address] * (ABNORMAL) CBC and differential (04/02/2025 11:09 PM EDT) WBC 8.50 4.00 - 11.00 K/uL [facility] RBC 4.83 4.50 - 5.90 M/uL [facility] HGB 12.9(L) 13.5 - 17.5 g/dL [facility] HCT 37.4(L) 41.0 - 53.0 % [facility] PLT 363 150 - 450 K/uL [facility] MCV 77.4(L) 80.0 - 100.0 fL [facility] MCH 26.7(L) 27.0 - 31.0 pg [facility] MCHC 34.5 32.0 - 36.0 g/dL [facility] RDW 12.6 11.5 - 14.5 % [facility] MPV 8.9 8.4 - 12.0 fL [facility] NRBC 0.00 0.00 /100 WBCs [facility] ABSOLUTE NRBC 0.00 0.00 K/uL [facility] DIFF METHOD Auto [facility] NEUTS 37.4(L) 48.0 - 76.0 % [facility] LYMPHS 47.4(H) 18.0 - 41.0 % [facility] MONOS 8.1 4.0 - 11.0 % [facility] EOS 6.2(H) 0.0 - 5.0 % [facility] BASOS 0.7 0.0 - 1.5 % [facility] Granulocytes, immature (%) 0.2 0.0 - 0.9 % [facility] ABSOLUTE NEUTS 3.17 1.92 - 7.60 K/uL [facility] ABSOLUTE LYMPHS 4.03 0.72 - 4.10 K/uL [facility] ABSOLUTE MONOS 0.69 0.16 - 1.10 K/uL [facility] ABSOLUTE EOS 0.53(H) 0.00 - 0.50 K/uL [facility] ABSOLUTE BASOS 0.06 0.00 - 0.15 K/uL [facility] Granulocytes, immature 0.02 0.00 - 0.09 K/uL [facility] Blood 04/02/2025 11:0 9 PM EDT 04/02/2025 11:11 PM EDT us Henna Morales PA-C LAB BLOOD ORDERABLES Final Result [facility] [address] [place] [address] documented in this encounter Visit Diagnoses Diagnosis Ileostomy dysfunction- Primary documented in this encounter Administered Medications Inactive Administered Medications - up to 3 most recent administrations Medication Order MAR Action Action Date Dose Rate Site iohexoL (OMNIPAQUE-350) 350 mg iodine/mL solution 100 mL 100 mL, Intravenous, Once as needed, pre procedure/treatment, Starting on Sun04/03/25 at 0012, For 1 dose, Procedural Contrast/Med Active Now, Each mL contains 755 mg of iohexol equivalent to 350 mg of organic iodine. Given 04/03/2025 12:26 AM EDT 100 mL lidocaine (UROJET) 2 % jelly 5 mL 5 mL, Topical, Once, On Sun04/03/25 at 0245, For 1 dose, Apply to stoma For TOPICAL Use Only Given by Other 04/03/2025 4:09 AM EDT 5 mL morphine injection 4 mg 4 mg, Intravenous, Once, On Eva 04/02/25 at 2300, For 1 dose Given 04/02/2025 11:41 PM EDT 4 mg ondansetron (PF) (ZOFRAN) injection 4 mg 4 mg, Intravenous, Once, On Eva 04/02/25 at 2300, For 1 dose Given 04/02/2025 11:41 PM EDT 4 mg sodium chloride (NS) 0.9 % syringe flush 3 mL 3 mL, Intravenous, As needed, line care, Starting on Eva 04/02/25 at 2255, Per Institutional IV Line Care Policy. sodium chloride 0.9% bolus 1,000 mL 1,000 mL, Intravenous, Administer over 30 Minutes, at 2,000 mL/hr, Once, On Eva 04/02/25 at 2300, For 1 dose New Bag 04/02/2025 11:41 PM EDT 1,000 mL 2000 mL/hr documented in this encounter Active and Recently Administered Medications Times are shown in EDT. Scheduled Medication Order 04/01/2025 04/02/2025 04/03/2025 lidocaine (UROJET) 2 % jelly 5 mL (COMPLETED) 5 mL, Topical, Once, On Sun04/03/25 at 0245, For 1 dose, Apply to stoma For TOPICAL Use Only 0409 (Given by Other - Provider: Gregoria Richardson, TAI) morphine injection 4 mg (COMPLETED) 4 mg, Intravenous, Once, On Eva 04/02/25 at 2300, For 1 dose 2340 (Given - Provider: Gregoria Richardson, TAI) ondansetron (PF) (ZOFRAN) injection 4 mg (COMPLETED) 4 mg, Intravenous, Once, On Eva 04/02/25 at 2300, For 1 dose 2340 (Given - Provider: Gregoria Richardson, TAI) sodium chloride 0.9% bolus 1,000 mL (COMPLETED) 1,000 mL, Intravenous, Administer over 30 Minutes, at 2,000 mL/hr, Once, On Eva 04/02/25 at 2300, For 1 dose 2341 (New Bag - Provider: Gregoria Richardson, RN) 0409 (Stopped - Provider: Gregoria Richardson, RN) PRN Medication Order 04/01/2025 04/02/2025 04/03/2025 iohexoL (OMNIPAQUE-350) 350 mg iodine/mL solution 100 mL (COMPLETED) 100 mL, Intravenous, Once as needed, pre procedure/treatment, Starting on 04/03/25 at 0012, For 1 dose, Procedural Contrast/Med Active Now, Each mL contains 755 mg of iohexol equivalent to 350 mg of organic iodine. 0026 (Given - Provid er: Radha Galvan) sodium chloride (NS) 0.9 % syringe flush 3 mL 3 mL, Intravenous, As needed, line care, Starting on Eva 04/02/25 at 2255, Per Institutional IV Line Care Policy. documented in this encounter Care Teams Analytics Manager Relationship Specialty Start Date End Date Dayton Gould PA [address] [place] [address] PCP - General 10/05/20 documented as of this encounter Additional Source Comments The information contained in this document represents components of the legal health record. It is not the complete legal health record.[facility]
[2025-04-03 10:55] VITALS: BP 136/92; PULSE 83; TEMP 36.4; O2SAT 97; BMI 29.6
--- NOTE | 2025-04-03 10:55 | MHC.PC.OV ---
Vital Signs 04/03/25 10:55 Height 5 ft 10 in Weight 206 lb 4 oz BMI 29.6 BP 136/92 H Blood Pressure Location Lt brachial Position Sitting Pulse 83 Pulse Source Pulse Oximeter Temp 97.5 F Temp Source Temporal Artery Scan Pulse Oximetry (%) 97 Oxygen Delivery Method Room Air Intake Visit Reasons: Constipation Allergies cetirizine (From [facility]) Adverse Reaction (Mild, Verified 04/03/25 10:58) Nightmare lactose Adverse Reaction (Unknown, Verified 04/03/25 10:58) Diarrhea Medication List - Last Reconciled 04/03/25 by Misty Byrnes MD [email or web address],nonsteril (Premier Colostomy-Ileostomy) As directed cyanocobalamin (vitamin B-12) 1,000 mcg (15 mL) PO QWEEK 3 weeks gemfibrozil 600 mg PO BID 30 days ibuprofen 800 mg PO Q8H PRN 10 days ketoconazole 2% 1 appl topical DAILY 4 weeks lorazepam 1 mg PO BEDTIME PRN mecobalamin (vitamin B12) 1,000 mcg PO DAILY 90 days metoprolol succinate ER 25 mg PO DAILY niacin ER 500 mg (2 x 250 mg) PO DAILY 90 days omeprazole 40 mg PO DAILY PRN ostomy adhesive (Stomahesive Paste) As directed ostomy supplies (Skin Prep Wipes) As directed sennosides (Senna Lax) 8.6 mg PO DAILY Tobacco use date assessed: 04/03/25 Dental Screening Dental Screen Date: 04/03/25 Did you have a dental visit in the last 12 months?: Yes Did you have a dental problem in the last 6 months where you did not have access to dental care?: No Was dental information given to patient?: Patient has dentist HPI HPI Comments History of Present Illness Details The patient is a 45-year-old male presenting with complications related to his stoma, including constipation and swelling. He reports a history of Crohn's disease and ulcerative colitis, with the stoma placed at age 13 following the removal of his large intestine due to ulcerative colitis. The patient has experienced recurrent issues with the stoma, including narrowing and swelling, leading to reduced output and discomfort. The patient describes episodes of constipation that exacerbate the stoma complications, with the stoma becoming swollen and producing minimal output. He has not been taking any medications for constipation due to concerns about potential blockage. In the past, emergency interventions have included morphine for pain and Toradol for inflammation, with occasional nasogastric decompression required. The patient has not had regular follow-up for his gastrointestinal conditions and reports a lack of specialist care since moving from [place] to [place]. He has been advised to seek specialist care for potential stoma revision and management of his Crohn's disease. The patient has a family history of esophageal ulcers in his father but no other known familial gastrointestinal conditions. [facility] Medical History (Updated 04/03/25 @ 11:42 by Misty Byrnes MD) HLD (hyperlipidemia) Overweight (BMI 25.0-29.9) Vitamin D deficiency Impaired fasting glucose Mixed hyperlipidemia Vitamin B12 deficiency B12 deficiency Trapezius muscle strain Ileostomy dysfunction CASSIA (generalized anxiety disorder) Sinusitis Presence of ileostomy Annual physical exam Presence of IVC filter Transaminitis Hypertriglyceridemia Inflammatory bowel diseases (IBD) Ulcerative colitis Sleep disorder breathing Infection of lip Lumbar disc herniation with radiculopathy Right knee injury Injury of lumbar spine Infected nasal abrasion Lumbar radiculopathy, chronic Constipation by delayed colonic transit Allergic rhinitis Obesity Colitis Zinc deficiency Chronic nasal congestion Nasal sinus congestion Obese Low libido GERD without esophagitis H/O deep venous thrombosis H/O acute pancreatitis Hypertriglyceridemia Surgical History History of ileostomy History of colectomy History of ileostomy History of resection of rectum Family History Father CVD (cardiovascular disease) Mother Hypertension Diabetes Maternal Grandmother Liver cancer Maternal Grandfather CVD (cardiovascular disease) Family/Other Diabetes Social History Household Members: Other Household Members Other:: girlfriend and children Housing: House Do you presently have visiting nurse or other home services: No Alcohol intake: never Patient Tobacco Use Status: Former Tobacco user e-Cigarette/Vaping Use: Never Used Second Hand Smoke Exposure: Yes Substance Use Type: Marijuana service: No Current occupational status: employed Current occupation: [employer] Cognitive needs: No Hearing needs: No Vision needs: No Questionnaire PHQ-9 Over the last 2 weeks, how often have you been bothered by any of the following problems? 1. Little interest or pleasure in doing things: nearly every day 2. Feeling down, depressed, or hopeless: nearly every day 3. Trouble falling or staying asleep, or sleeping too much: nearly every day 4. Feeling tired or having little energy: nearly every day 5. Poor appetite or overeating: more than half the days 6. Feeling bad about yourself - or that you are a failure or have let yourself or your family down: not at all 7. Trouble concentrating on things, such as reading the newspaper or watching television: more than half the days 8. Moving or speaking so slowly that other people could have noticed. Or the opposite - being so fidgety or restless that you have been moving around a lot more than usual: not at all 9. Thoughts that you would be better off or of hurting yourself in some way: not at all Total score: 16 Depression Screening Interpretation: Positive Depression Screening Follow-up: Existing condition and Follow-up Visit Requested Depression Screening Done: Yes Source: Developed by Drs. Augie Acosta, Radha Echavarria, Eros Robbins and colleagues, with an educational juli from [employer]. Thrive Questionnaire Date Thrive assessed: 12/05/24 I am a: Patient What is your living situation today?: I have a steady place to live Within the past 12 months, did the food you bought not last and you didn't have the money to get more?: Never true Within the past 12 months, did you worry whether your food would run out before you got money to buy more?: Never true Do you have trouble paying for medicines?: No Do you have trouble getting transportation to medical appointments?: No Do you have trouble paying your heating and electricity bill?: No Do you have trouble taking care of your child, family member or friend?: No Do you have trouble with day-to-day activities such as bathing, preparing meals, shopping, managing finances, etc.?: No Are you currently unemployed and looking for a job?: No Are you interested in more education?: No Please select the resources that you would like help with: None Currently or been in a relationship where the following occur: No concerns reported THRIVE Score: 0 AUDIT C Alcohol Use Questionnaire (AUDIT-C) 1. How often do you have a drink containing alcohol?: Never 3. How often do you have six or more drinks on one occasion?: Never Total Score: 0 CASSIA-7 AMB Questionnaire CASSIA-7 Date CASSIA - 7 assessed: 03/10/25 Feeling nervous, anxious, or on edge: 3 = Nearly every day Not being able to stop or control worryin = Not at all Worrying too much about different things: 2 = More than half the days Trouble relaxin = Not at all Being so restless that it is hard to sit still: 0 = Not at all Becoming easily annoyed or irritable: 0 = Not at all Feeling afraid as if something awful might happen: 0 = Not at all Total CASSIA-7 score (0-4 normal; 5-9 mild; 10-14 moderate; 15-21 severe): 5 Source: Developed by Drs. Augie Acosta, Radha Echavarria, Eros Robbins and colleagues, with an educational juli from [employer]. Review of Systems Const Details: Positives besides what was mentioned in HPI are in BOLD Constitutional: No Weight Change, No Fever, No Chills, No Night Sweats, No Fatigue, No Malaise ENT/Mouth: No Hearing Changes, No Ear Pain, No Nasal Congestion, No Sinus Pain, No Hoarseness, No sore throat, No Rhinorrhea, No Swallowing Difficulty Eyes: No Eye Pain, No Swelling, No Redness, No Foreign Body, No Discharge, No Vision Changes Cardiovascular: No Chest Pain, No SOB, No PND, No Dyspnea on Exertion, No Orthopnea, No Claudication, No Edema, No Palpitations Respiratory: No Cough, No Sputum, No Wheezing, No Smoke Exposure, No Dyspnea Gastrointestinal: No Nausea, No Vomiting, No Diarrhea, No Constipation, No Pain, No Heartburn, No Anorexia, No Dysphagia, No Hematochezia, No Melena, No Flatulence, No Jaundice Genitourinary: No Dysmenorrhea, No DUB, No Dyspareunia, No Dysuria, No Urinary Frequency, No Hematuria, No Urinary Incontinence, No Urgency, No Flank Pain, No Urinary Flow Changes, No Hesitancy Musculoskeletal: No Arthralgias, No Myalgias, No Joint Swelling, No Joint Stiffness, No Back Pain, No Neck Pain, No Injury History Skin: No Skin Lesions, No Pruritis, No Hair Changes, No Breast/Skin Changes, No Nipple Discharge Neuro: No Weakness, No Numbness, No Paresthesias, No Loss of Consciousness, No Syncope, No Dizziness, No Headache, No Coordination Changes, No Recent Falls Psych: No Anxiety/Panic, No Depression, No Insomnia, No Personality Changes, No Delusions, No Rumination, No SI/HI/AH/VH, No Social Issues, No Memory Changes, No Violence/Abuse Hx., No Eating Concerns Heme/Lymph: No Bruising, No Bleeding, No Transfusions History, No Lymphadenopathy Endocrine: No Polyuria, No Polydipsia, No Temperature Intolerance Physical exam (Primary Care) Vital Signs: Last Vital Signs Temp 97.5 F 04/03/25 10:55 Pulse 83 04/03/25 10:55 BP 136/92 H 04/03/25 10:55 Pulse Ox 97 04/03/25 10:55 Oxygen Delivery Method Room Air 04/03/25 10:55 BMI result Body Mass Index 29.6 Tobacco/Smoking Status: Tobacco use Status Tobacco use date assessed 04/03/25 04/03/25 11:00 Patient Tobacco Use Status Former Tobacco user 04/03/25 11:00 e-Cigarette/Vaping Use Never Used 04/03/25 11:00 PHQ-9: PHQ-9 Score PHQ-9: Total score 16 04/03/25 11:22 Depression Screening Interpretation: Positive Depression Screening Follow-up: Existing condition and Follow-up Visit Requested Thrive Assessment: Date of Thrive Assessment Date Thrive assessed 12/05/24 04/03/25 11:00 Currently or been in a relationship where the following occur: No concerns reported Const Other: Pertinent findings are in BOLD GENERAL APPEARANCE NAD, activity normal for age, well developed/ well nourished, no cyanosis, pallor, or diaphoresis. EYES lids/conjunctiva normal. EARS/NOSE/THROAT Mucous membranes moist, nares normal, lips/teeth normal uvula midline without oral pharyngeal erythema, exudate or swelling TMs normal bilaterally. No lymphangitis/lymphedema. HEAD/NECK normocephalic atraumatic, no facial trauma, neck is supple. RESPIRATORY respiratory effort normal, speaks in full sentences, no tripod position, no accessory muscle use. Lungs clear to auscultation without rhonchi, wheezes, rales CARDIAC Regular rate and rhythm, no edema. ABDOMINAL Soft, ND/NT. No evidence of fluid wave. No pulsatile masses on exam, rebound tenderness, Gamino sign or pain over Mcburney's point. Stoma in place, no redness, no signs of infection/inflammation. Abdominal distention around the stoma due to consitpation. MUSCLES/EXTREMITIES No abnormal range of motion, no swelling. SKIN Warm, pink and dry. No rashes, dermatoses, petechiae or lesions. NEUROLOGICAL Speech is clear and appropriate. Normal level of consciousness. Gait and coordination are normal. 5/5 strength in all extremities. PSYCH Normal mood and affect. Judgement/competence is appropriate Office Meds cyanocobalamin (vitamin B-12) 1,000 mcg/mL injection solution Performing Provider: Misty Byrnes MD [facility] Administered by: Hanh Philip LPN on 04/03/25 11:33 Dose Route Admin Location Dispensed Lot Number Expiration Date [facility] Assignment Agent 1,000 mcg IM left deltoid 1 mL [id number] 05/31/26 09413-739-27 [place] [employer] Total Dispensed Waste 1 mL 0 % Coding Level of Care Code Est Pt Level 4 (54184) Diagnoses Colostomy and enterostomy malfunction K94.03; K94.13 B12 deficiency E53.8 Ulcerative colitis with abscess, unspecified location K51.914 Digestive disease complication type: with abscess Ulcerative colitis location: unspecified ulcerative colitis location Constipation K59.00 Time Spent (min) 30 Assessment & Plan Assessment & Plan (1) Colostomy and enterostomy malfunction: Code(s): K94.03 - Colostomy malfunction; K94.13 - Enterostomy malfunction Category: Medical Plan: - Referral to a surgeon for potential stoma revision. - Monitoring for signs of obstruction or infection. - start Senna. (2) B12 deficiency: Code(s): E53.8 - Deficiency of other specified B group vitamins Category: Medical Plan: Patient will get his weekly injection. (3) Ulcerative colitis: Code(s): K51.90 - Ulcerative colitis, unspecified, without complications Category: Medical Qualifiers: Digestive disease complication type: with abscess Ulcerative colitis location: unspecified ulcerative colitis location Qualified Code(s): K51.914 - Ulcerative colitis, unspecified with abscess Plan: - Referral to a asset protection professional for ongoing management and medication review. - Consideration of anti-inflammatory medications to manage symptoms. (4) Constipation: Code(s): K59.00 - Constipation, unspecified Category: Medical Plan: - Prescription of Francine for constipation management, with instructions for cautious use. Plan I discussed with the patient the need for specialist referrals to both a asset protection professional and a surgeon to address his ongoing stoma complications and Crohn's disease management. We reviewed the potential use of anti-inflammatory medications and the prescription of [place] for constipation management, emphasizing cautious use to avoid further complications. The importance of follow-up care and monitoring for signs of obstruction or infection was also highlighted. Orders: Orders AMB Vitamin B12 Injection Patient Supplied Today E53.8 - Deficiency of other specified B group vitamins Referrals Gastroenterology Referral K94.03 - Colostomy malfunction, K94.13 - Enterostomy malfunction General Surgery Referral K94.03 - Colostomy malfunction, K94.13 - Enterostomy malfunction Nutrition/Dietitian Referral E78.5 - Hyperlipidemia, unspecified, E88.89 - Other specified metabolic disorders, Z43.3 - Encounter for attention to colostomy Medications: New sennosides (Senna Lax) 8.6 mg PO DAILY 30 tabs 1RF
--- OUTSIDE RECORDS SUMMARY | 2025-04-03 12:03 | XMS_ITS | Encounter Summary ---
Author Organization [facility] Address [address] [place] [address] Phone Care Team Providers Care Public Address Announcer Name Role Phone Dayton Gould Primary Care Provider + Encounter Details Date Type Department Care Team (Late st Contact Info) Description 02/20/2025 Procedure Pass [facility], Ct Scan - [facility] [address] [place] [address] Social History Tobacco Use Types Packs/Day Years [...] EDT Office Visit [facility] [address] [place] [address] [place] [address] Bernice Jacome [address] [place] [address], [address] [place] [address] [email or web address] documented as of this encounter Visit Diagnoses Not on filedocumented in this encounter Additional Health Concerns Infection Onset Date Last Indicated Resolved Time CoV-Risk 03/09/2025 03/09/2025 03/20/2025 1:21 AM EDT documented as of this encounter Care Teams Public Address Announcer Relationship Specialty Start Date End Date Dayton Goudl PA [address] [place] [address] PCP - General 10/05/20 documented as of this encounter Additional Source Comments The information contained in this document represents components of the legal health record. It is not the complete legal health record.[facility]
--- OUTSIDE RECORDS SUMMARY | 2025-04-03 12:03 | XMS_ITS | Encounter Summary ---
Author Organization [facility] Address [address] [facility] [address] [place] [address] Phone Care Team Providers Care Sales Support Advisor Name Role Phone Dayton Gould Primary Care Provider + Encounter Details Date Type Department Care Team (Late st Contact Info) Description 03/10/2025 Procedure Pass [facility], Ct Scan - [facility] [address] [place] [address] Social History Tobacco Use Types Packs/Day Years [...] EDT Office Visit [facility] [facility] [address] [place] [address] [place] [address] Bernice Jacome [address] [place] [address], [address] [place] [address] [email or web address] documented as of this encounter Visit Diagnoses Not on filedocumented in this encounter Additional Health Concerns Infection Onset Date Last Indicated Resolved Time CoV-Risk 03/09/2025 03/09/2025 03/20/2025 1:21 AM EDT documented as of this encounter Care Teams Sales Support Advisor Relationship Specialty Start Date End Date Dayton Gould PA [address] [place] [address] PCP - General 10/05/20 documented as of this encounter Additional Source Comments The information contained in this document represents components of the legal health record. It is not the complete legal health record.[facility]
--- OUTSIDE RECORDS SUMMARY | 2025-04-03 12:03 | XMS_ITS | Encounter Summary ---
Author Organization [facility] Address [address] [facility] [address] [place] [address] Phone Care Team Providers Care Desk Sergeant Name Role Phone Dayton Gould Primary Care Provider + Encounter Details Date Type Department Care Team (Late st Contact Info) Description 06/16/2023 Procedure Pass [facility], Ct Scan - [address] [address] Social History Tobacco Use Types Packs/Day Years [...] Author No Risk Indicated 06/16/2023 6:47 PM eLandro Mukherjee RN * [place] Suicide Severity Rating Scale (Screener/Recent Self-Report) Question Answer Date of Assessment Author 1. Wish to be (Past 1 Month) No 023 6:47 PM Leandro Mukherjee RN 2. Non-Specific Active Suici william Thoughts (Past 1 Month) No 06/16/2023 6:47 PM Dimitri Mkuherjee RN 6. Suicidal Behavior (Lifetime) No 6:47 PM Leandro Mukherjee RN documented as of this encounter Plan of Treatment Upcoming Encounters Date Type Department Care Team (Late st Contact Info) Description 09/20/2026 9:00 AM EDT Office Visit [facility] [address] [place] [address] Bernice Jacome [address] [place] [address], [address] [place] [address] [email or web address] documented as of this [...] documented as of this encounter Care Teams Desk Sergeant Relationship Specialty Start Date End Date Dayton Gould PA [address] [place] [address] PCP - General 10/05/20 documented as of this encounter Additional Source Comments The information contained in this document represents components of the legal health record. It is not the complete legal health record.[facility]
--- OUTSIDE RECORDS SUMMARY | 2025-04-03 12:03 | XMS_ITS | Encounter Summary ---
Author Organization [facility] Address [address] [facility] [address] [place] [address] Phone Care Team Providers Care Pondman Name Role Phone Dayton Gould Primary Care Provider + Encounter Details Date Type Department Care Team (Late st Contact Info) Description 07/29/2022 Procedure Pass [facility], Ct Scan - [address] [address] Social History Tobacco Use Types Packs/Day Years [...] 07/29/2022 3:45 PM Leola Flynn RN * [place] Suicide Severity Rating Scale (Screener/Recent Self-Report) Question [...] Description 09/20/2026 9:00 AM EDT Office Visit [facility] [address] [place] [address] Bernice Jacome [address] [facility], [address] [place] [address] [email or web address] documented as [...] documented as of this encounter Care Teams Pondman Relationship Specialty Start Date End Date Dayton Gould PA [address] [place] [address] PCP - General 10/05/20 documented as of this encounter Additional Source Comments The information contained in this document represents components of the legal health record. It is not the complete legal health record.[facility]
--- OUTSIDE RECORDS SUMMARY | 2025-04-03 12:03 | XMS_ITS | Encounter Summary ---
Author Organization [facility] Address [address] [place] [address] [place] [address] Phone Care Team Providers Care Wood Turner Name Role Phone Dayton Gould Primary Care Provider + Encounter Details Date Type Department Care Team (Late st Contact Info) Description 09/12/2023 Procedure Pass [facility] [place] [place] [address] Social History Tobacco Use Types Packs/Day Years [...] AM EDT Office Visit [facility] [address] [place] [address] [place] [address] Bernice Jacome [address], [address] [place] [address] [email or web address] documented [...] documented as of this encounter Care Teams Wood Turner Relationship Specialty Start Date End Date Dayton Gould PA [address] [place] [address] PCP - General 10/05/20 documented as of this encounter Additional Source Comments The information contained in this document represents components of the legal health record. It is not the complete legal health record.[facility]
--- OUTSIDE RECORDS SUMMARY | 2025-04-03 12:03 | XMS_ITS | Encounter Summary ---
Author Organization [facility] Address [address] [facility] [address] [place] [address] Phone Care Team Providers Care Meter Reader Inspector Name Role Phone Dayton Gould Primary Care Provider + Encounter Details Date Type Department Care Team (Late st Contact Info) Description 12/15/2021 Procedure Pass [facility]oscopy Admitting Dept Virtual Department [address] [place] [address] Social History Tobacco Use Types Packs/Day Years [...] EDT Office Visit [facility] [address] [place] [address] Bernice Jacome [address] [place] [address], [address] [place] [address] [email or web address] documented as of this encounter [...] documented as of this encounter Care Teams Meter Reader Inspector Relationship Specialty Start Date End Date Dayton Gould PA [address] [place] [address] PCP - General 10/05/20 documented as of this encounter Additional Source Comments The information contained in this document represents components of the legal health record. It is not the complete legal health record.[facility]
--- OUTSIDE RECORDS SUMMARY | 2025-04-03 12:03 | XMS_ITS | Patient Health Record ---
Author Organization [facility] Address [address] [place] [address] Care Team Providers Care Denture Contour Wire Specialist Name Role Phone Dayton Gould Primary [...] Problem Status W/U Status Risk Notes Problem [id number] Ileostomy status (Z93.2) Active confirmed Problem 17157770 Ulcerative colit is without complications, unspecified location (K51.90) Active confirmed Problem Hypertriglyceridemia (375518243) Hypertriglyceridemia (E78.1) Active confirmed Problem Pancreatitis (27306854) Pancreatitis (K85.90) Active confirmed Problem 225415003 Acute pancreatit is without infection or necrosis, unspecified pancreatitis type (K85.90) Active confirmed Problem 62950714 Ulcerative colit is, unspecified (K51.90) Active confirmed Plan Of Treatment Pending Test Test Name Order Date LIVER PROFILE 05/31/2022 Triglycerides 05/31/2022 Lipase 05/31/2022 Insurance Providers Payer Name Payer Address Payer Phone Subscriber Number Group Number Insured Name Patient Relationship to Insured Coverage Start Date Coverage End Date [facility] Plan [address] [address] [place], [place] [id number] [phone] [id number] KAMARI DELEON Self - patient is the [...]
--- OUTSIDE RECORDS SUMMARY | 2025-04-03 12:04 | XMS_ITS | Clinical Summary ---
Author Organization [email or web address] Address [address] [facility] 7[address] [place] [address] Care Team Providers Care Mushroom Sorter Grader Name Role Phone Unavailable Primary Care Provider [...] thrombosis) 10/05/2020 Hypertriglyceridemia 10/05/[address] ([facility]) 10/05/2020 Microcytic anemia 10/05/2020 Presence of IVC filter 10/05/2020 Encounters Date Type Department Care Team Description 03/26/2025 8:00 AM EDT Office Visit [facility] [address] [place] [address] Austin Simmons 03/19/2025 8:00 AM EDT Office Visit [facility] [address] [place] [address] Austin Simmons 03/19/2025 Travel 03/13/2025 3:30 PM EDT Office Visit [facility] [address] [place] [address] Jovon Doss 03/11/2025 3:00 PM EDT Office Visit [facility] [address] [place] [address] Austin Simmons Dental caries (Primary Dx); Pain, [...] Description 04/06/2025 8:00 AM EDT Office Visit [facility] [address] [place] [address] Health Maintenance Due Date Last Done Comments [...] Insurance [place] AD[place] [id number] [place] [id number] [place] [id number]
--- OUTSIDE RECORDS SUMMARY | 2025-04-03 12:04 | XMS_ITS | Clinical Summary ---
Author Organization [facility] Address [address] [facility] [address] [place] [address] Phone Care Team Providers Care Set Up Mechanic Coating Machines Name Role Phone Dayton Gould Primary Care Provider + Allergies No known active allergies Medications oxymetazoline (AFRIN) 0.05 % nasal spray 2 sprays by Nasal route 2 (two) times a day as needed for congestion. Active niacin 250 mg TbER Take 2 tablets by mouth every morning. 4 Active omeprazole (PRILOSEC) 40 MG capsule Take 40 mg by mouth daily. 4 Active gemfibroziL (LOPID) 600 MG tablet Take 1 tablet (600 mg total) by mouth 2 (two) times a day. 180 tablet 4 Active metoprolol succinate (TOPROL-XL) 25 MG 24 hr tablet Take 1 tablet (25 mg total) by mouth daily. 90 tablet 1 5 Active Additional Information Patient not taking.Reported on 04/02/2025 celecoxib (CELEBREX) 100 MG capsule Take 1 capsule (100 mg total) by mouth 2 (two) times a day. 14 capsule 5 Active Additional Information Patient not taking.Reported on 04/02/2025 dicyclomine (BENTYL) 10 MG capsule Take 1 capsule (10 mg total) by mouth 4 (four) times a day before meals and nightly. 20 capsule 5 Active Additional Information Patient not taking.Reported on 04/02/2025 clonazePAM (KLONOPIN) 1 MG tablet Take 1 mg by mouth daily as needed for anxiety. Active Active Problems Problem Noted Date Diagnosed [...] increase D5 NS infusion. Continue to monitor [id number] blood sugars with goals of eventually initiating [...] related pancreatitis and the last admitted to [facility] in September 2020 when triglyceride levels were greater than 4000 after stopping medication Was recently admitted to [facility] for recurrent pancreatitis. Was treated supportively and discharged home. He presented back to [facility] with recurrent abdominal pain, bloating, vomiting [...] low-fat diet today Regular GI is in [place] [address] [place] Follow over the day and [...] Encounters Date Type Department Care Team Description 04/02/2025 9:33 PM EDT - 04/03/2025 4:11 AM EDT Emergency [facility] [address] [place] [address] Discharge Disposition: Home or Self Care 04/02/[address] [address] 03/10/[address] [address] 03/09/2025 9:25 PM EDT - 03/10/2025 3:17 AM EDT Emergency [facility] Emergency [address] [place] [address] Breanne Locke MD Discharge Disposition: Home or Self Care 02/20/2025 12:26 AM EDT - 02/20/2025 5:53 AM EDT Emergency [facility] Emergency [address] [place] [address] Samir Dee, DO Discharge Disposition: Home or Self Care 02/20/[address] [address] from Last 3 Months Immunizations Immunization Administration [...] Mass Index 28.73 04/02/2025 11:42 PM EDT Plan of Treatment Upcoming Encounters Date Type Department Care Team (Late st Contact Info) Description 09/20/2026 9:00 AM EDT [facility] [address] [place] [address] Bernice Jacome [address] [place] [address], [address] [place] [address] [email or web address] Health Maintenance Due Date Last Done [...] 2025 VIRTUAL COLONOSCOPY 2025 SCREENING FOR DIABETES 04/02/2028 04/02/2025, 2023 LIPID PANEL 02/28/2029 02/29/2024, 04/0 01/2021, [...] WITH CONTRAST Routine 04/03/2025 12:29 AM EDT MAGNESIUM STAT 04/02/2025 11:09 PM EDT LIPASE STAT 04/02/2025 11:09 PM EDT LFTS (HEPATIC PANEL) STAT 04/02/2025 11:09 PM EDT BASIC METABOLIC PANEL STAT 04/02/2025 11:09 PM EDT CBC AND DIFFERENTIAL STAT 04/02/2025 11:[address] ABDOMEN/PELVIS WITH CONTRAST Routine 03/10/2025 12:31 [...] Maintenance Results * CT ABDOMEN/PELVIS WITH CONTRAST (04/03/2025 [...] wall thickening or inflammation. 2. Fatty liver. Henna Morales PA-C IMG CT ABD/PELVIS Final Res ult * LFTs (hepatic panel) (04/02/2025 11:09 PM EDT) Only the most recent of3 resultswithin the time period is included. ALKALINE PHOSPHATASE 108 39 - 117 U/L [facility] TOTAL BILIRUBIN <0.2 0.0 - 1.2 mg/dL [facility] DIRECT BILIRUBIN 0.1 0.0 - 0.2 mg/dL [facility] Bilirubin (Indirect) NOT CALCULATED 0 - 1.5 mg/dL [facility] AST 14 0 - 37 U/L [facility] ALT 12 0 - 40 U/L [facility] TOTAL PROTEIN 7.0 6.5 - 8.0 g/dL [facility] ALBUMIN 4.0 3.9 - 4.8 g/dL [facility] GLOBULIN 3.0 1 - 4.8 g/dL [facility] A/G Ratio 1.33 1.00 - 4.80 RATIO [facility] Blood 04/02/2025 11:0 9 PM EDT 04/02/2025 11:11 PM EDT Henna Morales PA-C LAB BLOOD ORDERABLES Final Result [facility] [address] [place] [address] * (ABNORMAL) CBC and differential (04/02/2025 11:09 PM EDT) Only the most recent of3 resultswithin the time period is included. WBC 8.50 4.00 - 11.00 K/uL [facility] RBC 4.83 4.50 - 5.90 M/uL [facility] HGB 12.9(L) 13.5 - 17.5 g/dL [facility] HCT 37.4(L) 41.0 - 53.0 % [facility] PLT 363 150 - 450 K/uL [facility] MCV 77.4(L) 80.0 - 100.0 fL [facility] MCH 26.7(L) 27.0 - 31.0 pg [facility] MCHC 34.5 32.0 - 36.0 g/dL [facility] RDW 12.6 11.5 - 14.5 % [facility] MPV 8.9 8.4 - 12.0 fL [facility] NRBC 0.00 0.00 /100 WBCs [facility] ABSOLUTE NRBC 0.00 0.00 K/uL [facility] DIFF METHOD Auto [facility] NEUTS 37.4(L) 48.0 - 76.0 % [facility] LYMPHS 47.4(H) 18.0 - 41.0 % [facility] MONOS 8.1 4.0 - 11.0 % [facility] EOS 6.2(H) 0.0 - 5.0 % [facility] BASOS 0.7 0.0 - 1.5 % [facility] Granulocytes, immature (%) 0.2 0.0 - 0.9 % [facility] ABSOLUTE NEUTS 3.17 1.92 - 7.60 K/uL [facility] ABSOLUTE LYMPHS 4.03 0.72 - 4.10 K/uL [facility] ABSOLUTE MONOS 0.69 0.16 - 1.10 K/uL [facility] ABSOLUTE EOS 0.53(H) 0.00 - 0.50 K/uL [facility] ABSOLUTE BASOS 0.06 0.00 - 0.15 K/uL [facility] Granulocytes, immature 0.02 0.00 - 0.09 K/uL [facility] Blood 04/02/2025 11:0 9 PM EDT 04/02/2025 11:11 PM EDT Henna Morales PA-C LAB BLOOD ORDERABLES Final Result Performing Organization Address City/[facility]/ZIP Co de Phone Number [address] [address] * Magnesium (04/02/2025 11:09 PM EDT) MAGNESIUM 2.1 1.6 - 2.6 mg/dL [facility] Blood 04/02/2025 11:0 9 PM EDT 04/02/2025 11:11 PM EDT [facility] LAB BLOOD ORDERABLES Final Result Performing Organization Address [facility] Co de Phone Number [address] [address] * Lipase (04/02/2025 11:09 PM EDT) Only the most recent of3 resultswithin the time period is included. LIPASE 58 16 - 63 U/L [facility] Blood 04/02/2025 11:0 9 PM EDT 04/02/2025 11:11 PM EDT Henna Morales PA-C LAB BLOOD ORDERABLES Final Result Performing Organization Address [facility] Co de Phone Number [address] [address] * (ABNORMAL) Basic metabolic panel (04/02/2025 11:09 PM EDT) Only the most recent of3 resultswithin the time period is included. SODIUM 136 133 - 146 mmol/L [facility] CHLORIDE 104 96 - 108 mmol/L [facility] POTASSIUM 3.8 3.3 - 5.1 mmol/L [facility] Comment:Specimen slightly he molyzed, result may be falsely elevated. CO2 21 21 - 35 mmol/L [facility] BUN 8 6 - 19 mg/dL [facility] CREATININE 0.80 0.5 - 1.5 mg/dL [facility] GLUCOSE 120(H) 70 - 99 mg/dL [facility] CALCIUM 9.4 8.4 - 10.3 mg/dL [facility] EGFR 111 >59 mL/min/1.7 3m2 [facility] Comment:Estimated glomerular filtration rate calculated using the CKD-EPI refit equation. ANION GAP 15 10 - 20 mmol/L [facility] Blood 04/02/2025 11:0 9 PM EDT 04/02/2025 11:11 PM EDT us Henna Morales PA-C LAB BLOOD ORDERABLES Final Result [facility] [address] [place] [address] * CT ABDOMEN/PELVIS WITH CONTRAST (03/10/2025 12:31 [...] EDT) Heterophile Ab NON-REACTI VE NON-REACTI VE [facility] Blood (Blood) 03/09/2025 10: 35 PM EDT 03/09/2025 10:49 PM EDT Breanne Locke MD NON CULTURE MICROBIOLOGY Fin al Result Performing Organization Address [facility]/ZIP Co de Phone Number [address] [address] * COVID Pandemic Respiratory Viral Order (PRO) (03/09/2025 10:23 PM EDT) Test Ordered Rapid COVID has been ordered [facility] Specimen Source/Description NASAL [facility] SARS-CoV 2 (COVID-19) PCR Not Detected Not Detected [facility] Comment: SARS-CoV-2 not detected Negative results do not preclude SARS-CoV-2 infection and should not be used as the sole basis for patient management decisions. Negative results must be combined with clinical observations, patient history, and epidemiological information. Other (Nasopharyngeal swab) 03/09/2025 10:23 PM EDT 03/09/2025 11:13 PM EDT Breanne Locke MD BODY FLUIDS AND STOOLS ORDER PREETHI Final Result Performing Organization Address City/[facility]/ZIP Co de Phone Number [address] [address] * Urinalysis w/reflex Urine Culture (03/09/2025 9:32 PM EDT) COLOR Yellow Yellow [facility] CLARITY Clear [facility] GLUCOSE Negative Negative [facility] BILI Negative Negative [facility] KETONES Negative Negative [facility] SPECIFIC GRAVITY >1.030 1.005 - 1.030 [facility] BLOOD Negative Negative [facility] PH 6.0 5.0 - 8.0 [facility] Protein-UA Negative Negative [facility] NITRITE Negative Negative [facility] Leukocyte esterase, ur Negative Negative [facility] Urine (Urine) 03/09/2025 9:3 2 PM EDT 03/09/2025 9:54 PM EDT us Carlos Eduardo Cumimns MD URINE ORDERABLES Final R esult Performing Organization Address [facility] Co de Phone Number [address] [address] * TSH with reflex (03/09/2025 6:44 PM EDT) TSH 0.70 0.27 - 4.20 uIU/mL [facility] 03/09/2025 6:44 PM EDT 03/09/2025 7:00 PM EDT us Carlos Eduardo Cummins MD LAB BLOOD ORDERABLES Fin al Result Performing Organization Address [facility] Co de Phone Number [address] [address] * C-Reactive Protein (03/09/2025 6:44 PM EDT) C REACTIVE PROTEIN <3.0 0.0 - 4.0 mg/L [facility] 03/09/2025 6:44 PM EDT 03/09/2025 7:00 PM EDT us Carlos Eduardo Cummins MD LAB BLOOD ORDERABLES Fin al Result [address] [address] * CT ABDOMEN/PELVIS WITH CONTRAST (02/20/2025 2:46 [...] HS Gen5 <6 0 - 14 ng/L [facility] Blood 02/19/2025 11:0 2 PM EDT 02/19/2025 11:12 PM EDT us Elias Gotti MD LAB BLOOD ORDERAB LES Final Result Performing Organization Address City/State/[facility] Co de Phone Number [address] [address] * ECG 12-LEAD (02/19/2025 9:27 PM EDT) Ventricular Rate EKG/MIN 85 BPM [facility] Atrial Rate 85 BPM [facility] TX Interval 144 ms [facility] QRS Duration 82 ms [facility] QT Interval 382 ms [facility] QTC Interval 454 ms [facility] P [place] 56 degrees [facility] R Wave [place] 23 degrees [facility] T Wave [place] 11 degrees [facility] 02/19/2025 9:27 PM EDT [...] (02/29/2024 5:05 PM EDT) HDL 21 mg/dL [facility] Comment: Interpretation <40 mg/dL: Low HDL cholesterol (major risk factor for CHD) Greater than or equal to 60 mg/dL: High HDL cholesterol ( negative risk factor for CHD) HDL - cholesterol is affected by a number of factors, e.g. smoking, excerise, hormones, sex and age. CHOLESTEROL 764(H) 0 - 240 mg/dL [facility] TRIGLYCERIDES 3,858(H) 30 - 160 mg/dL [facility] LDL NOT CALCULATED 50 - 129 mg/dL [facility] Comment: Unable to calculate due to elevated TRIG of greater than 400. A measured LDL will be performed. CARDIAC RISK RATIO 36.4(H) 3.4 - 5.0 [facility] Blood 02/29/2024 5:05 PM EDT 02/29/2024 5:07 PM EDT us Alexander Foster PA-C LAB BLOOD ORDERABLES Final Re sult Performing Organization Address City/[facility]/ZIP Co de Phone Number [facility] [address] [place], [place] [id number] from Last 3 Months or Most Recently Relevant to Health Maintenance Insurance [facility] [address] [place] [id number] [facility] [address] [place] [id number] [facility] [address] [place] [id number] [facility] Advance Directives For more information, please contact: [phone] (9AM - 5PM [facility], Sunday-Sunday) Documents on File Type Date Recorded Patient Information Systems Analyst Expl anation Healthcare Proxy 03/11/2024 4:11 PM [...] presumed on basis of a Care Teams Set Up Mechanic Coating Machines Relationship Specialty Start Date End Date Dayton Gould PA [address] [place] [address] PCP - General 10/05/20 Additional Source Comments The information contained in this document represents components of the legal health record. It is not the complete legal health record.[facility]
--- OUTSIDE RECORDS SUMMARY | 2025-04-03 12:06 | XMS_ITS | Encounter Summary ---
Author Organization [facility] Address [address] [place] [address] Phone Care Team Providers Care Duplication Specialist Name Role Phone Dayton Gould Primary Care Provider + Encounter Details Date Type Department Care Team (Late st Contact Info) Description 06/07/2024 Procedure Pass [facility], Ct Scan - [address] [address] Social History Tobacco Use Types Packs/Day Years [...] 06/08/2024 3:07 AM Tino Cooper RN * [place] Suicide Severity Rating Scale (Screener/Recent Self-Report) Question [...] 9:00 AM EDT Office Visit [facility] [address] [place] [address] Bernice Jacome [address] [place] [address], [address] [place] [address] [email or web address] [...] documented as of this encounter Care Teams Duplication Specialist Relationship Specialty Start Date End Date Dayton Gould PA [address] [place] [address] PCP - General 10/05/20 documented as of this encounter Additional Source Comments The information contained in this document represents components of the legal health record. It is not the complete legal health record.[facility]
--- OUTSIDE RECORDS SUMMARY | 2025-04-03 12:06 | XMS_ITS | Encounter Summary ---
Author Organization [facility] Address [address] [facility] [address] [place] [address] Phone Care Team Providers Care Police Lieutenant Patrol Name Role Phone Dayton Gould Primary Care Provider + Encounter Details Date Type Department Care Team (Late st Contact Info) Description 12/14/2021 Procedure Pass [facility], [address] [address] Social History Tobacco Use Types Packs/Day Years [...] Description 09/20/2026 9:00 AM EDT Office Visit [address] [address] Bernice Jacome [address] [place] [address], [address] [place] [address] [email or web address] documented as of this encounter Visit [...] documented as of this encounter Care Teams Police Lieutenant Patrol Relationship Specialty Start Date End Date Dayton Gould PA [address] [place] [address] PCP - General 10/05/20 documented as of this encounter Additional Source Comments The information contained in this document represents components of the legal health record. It is not the complete legal health record.[facility]
--- OUTSIDE RECORDS SUMMARY | 2025-04-03 12:06 | XMS_ITS | Encounter Summary ---
Author Organization [facility] Address [address] [facility] [address] [place] [address] Phone Care Team Providers Care Information Systems Planner Name Role Phone Dayton Gould Primary Care Provider + Encounter Details Date Type Department Care Team (Late st Contact Info) Description 08/24/2024 Procedure Pass [facility], Ct Scan - [facility] [address] [place] [address] Social History Tobacco Use Types Packs/Day Years [...] EDT Office Visit [facility] [address] [place] [address] [place] [address] Bernice Jacome [address] [place] [address], [address] [place] [address] [email or web address] documented as of this encounter Visit Diagnoses Not on filedocumented in this encounter Additional Health Concerns Infection Onset Date Last Indicated Resolved Time CoV-Risk 03/09/2025 03/09/2025 03/20/2025 1:21 AM EDT documented as of this encounter Care Teams Information Systems Planner Relationship Specialty Start Date End Date Dayton Gould PA [address] [place] [address] PCP - General 10/05/20 documented as of this encounter Additional Source Comments The information contained in this document represents components of the legal health record. It is not the complete legal health record.[facility]
--- OUTSIDE RECORDS SUMMARY | 2025-04-03 12:06 | XMS_ITS | Clinical Summary ---
Author Organization [facility] Address [address] [place] [address] Care Team Providers Care Campaign Worker Name Role Phone Unavailable Primary Care Provider [...]
--- OUTSIDE RECORDS SUMMARY | 2025-04-03 12:06 | XMS_ITS | Encounter Summary ---
Author Organization [facility] Address [address] [facility] [address] [place] [address] Phone Care Team Providers Care Investment Counselor Name Role Phone Dayton Gould Primary Care Provider + Encounter Details Date Type Department Care Team (Late st Contact Info) Description 04/02/2025 Procedure Pass [facility], Ct Scan - [facility] [address] [place] [address] Social History Tobacco Use Types Packs/Day Years [...] 5:17 PM EDT Fabby Lynne RN * [place] Suicide Severity Rating Scale (Screener/Recent Self-Report) Question Answer Date of Assessment Author 1. Wish to be (Past 1 Month) No 025 5:17 PM EDT Fabby Lynne, TAI 2. Non-Specific Active Suici william Thoughts (Past 1 Month) No 04/02/2025 5:17 PM EDT Michelle Lynne RN 6. Suicidal Behavior (Lifetime) No 5:17 PM EDT Fabby Lynne, RN documented as of this encounter Plan of Treatment Upcoming Encounters Date Type Department Care Team (Late st Contact Info) Description 09/20/2026 9:00 AM EDT Office Visit [facility] [address] [place] [address] [place] [address] Bernice Jacome [address] [place] [address], [address] [place] [address] [email or web address] documented as of this encounter Visit Diagnoses Not on filedocumented in this encounter Care Teams Investment Counselor Relationship Specialty Start Date End Date Dayton Gould PA [address] [place] [address] PCP - General 10/05/20 documented as of this encounter Additional Source Comments The information contained in this document represents components of the legal health record. It is not the complete legal health record.[facility]
--- OUTSIDE RECORDS SUMMARY | 2025-04-03 12:06 | XMS_ITS | Encounter Summary ---
Author Organization [facility] Address [address] [place] [address] Phone Care Team Providers Care Travel Counselor [employer]obile [employer] Name Role Phone Dayton Gould Primary Care Provider + Encounter Details Date Type Department Care Team (Late st Contact Info) Description 06/09/2024 Procedure Pass [facility], Ct Scan - [facility] [address] [place] [address] Social History Tobacco Use Types Packs/Day Years [...] 09/20/2026 9:00 AM EDT Office Visit [facility] [facility] [address] [place] [address] Bernice Jacome [address] [place] [address], [address] [place] [address] [email or web address] documented as of this encounter Visit Diagnoses Not on filedocumented in this encounter Additional Health Concerns Infection Onset Date Last Indicated Resolved Time CoV-Risk Comment:Per note documentation 08/04/2024 08/04/2024 9:21 AM EST CDiff-Risk 08/04/2024 08/05/2024 08/05/2024 2:09 AM EST CoV-Risk 03/09/2025 03/09/2025 03/20/2025 1:21 AM EDT documented as of this encounter Care Teams Travel Counselor [employer] Relationship Specialty Start Date End Date Dayton Gould PA [address] [place] [address] PCP - General 10/05/20 documented as of this encounter Additional Source Comments The information contained in this document represents components of the legal health record. It is not the complete legal health record.[facility]
== END 2025-04-03 11:25 | disposition home or self-care (01) ==
LOC: HO.HMCH 10:52
PROVIDERS: PCP Physician Assistant; Visit Provider Internal Medicine
DX: K94.03 Colostomy malfunction (principal); K94.13 Enterostomy malfunction; E53.8 Deficiency of other specified B group vitamins; K51.914 Ulcerative colitis, unspecified with abscess; K59.00 Constipation, unspecified

== ENCOUNTER → 2025-04-03 10:52 | Outpatient (BNVA) | payer OTHER, SELFPAY | PROVIDERS: PCP Physician Assistant; Visit Provider Internal Medicine | DX: K94.03 Colostomy malfunction (principal); K94.13 Enterostomy malfunction; E53.8 Deficiency of other specified B group vitamins; K59.00 Constipation, unspecified; Z87.19 Personal history of other diseases of the digestive system; Z83.79 Family history of other diseases of the digestive system | CPT/HCPCS: 96372; 99212; J3420 ==

== ENCOUNTER 2025-04-15 11:20 | Outpatient (AMB) | payer OTHER, SELFPAY ==
--- NOTE | 2025-04-15 11:41 | A.OFFVIS_ITS ---
VS Expanded 04/15/25 11:42 04/20/25 11:53 Height 5 ft 10 in 5 ft 10 in Weight 208 lb 15.971 oz 209 lb BMI 30.0 30.0 Intake Visit Reasons: Other specified metabolic disorders Allergies cetirizine (From [facility]) Adverse Reaction (Mild, Verified 04/03/25 10:58) Nightmare lactose Adverse Reaction (Unknown, Verified 04/03/25 10:58) Diarrhea Nutrition Presentation Details: Pt presents for MNT f/u, referred by PCP for hyperlipidemia, steatosis Pt has a permanent ileostomy since age 13 (Pt was last seen for nutrition in 2022, [place] the [place]). Pt reports taking b12 shots , 3 times /wks 24 hr food recall B: egg crossaint , water last night dinner and today's lunch : rice /broccoli, chicken , last night bedtime snack: raisin bran cereal beverages: water in AM, sometimes juices , 16-24 oz of fluids/day snacks on candies , chocolate Pt reports he has been choosing high fiber foods to help with cholesterol. Pt was advised on importance of increasing fluids when increasing fiber . He also reported having constipation for > 3 days (reports recently starting to take senna as rx by PCP reports this is starting to work today. Pt reports he was advised that his stoma may need to be stretched out and this may be another reason for constipation, he reports he has pending referral with GI for further evaluation) Pt reports that in the past he was taking fish oils but stopped d/t inc burp /nauseous feelings physical activity: ADL concerns about b vit def HHZ-Tpkjxyl-Sv.Jeor Equation Height: 5 ft 10 in Weight: 209 lb Resting Metabolic Rate: 1841.91 Calculated Activity Level: Mild Activity Calories Needed to Maintain Weight: 2532.63 Diagnosis Nutrition problem #1: food nutri know defi As related to (etiology) #1: diagnosis (hyperlipidemia /permanent ileostomy/ c/o constipation) As evidenced by (sign/symptom) #1: knowledge deficit of diet [facility] Medical History (Updated 04/03/25 @ 11:42 by Misty Byrnes MD) HLD (hyperlipidemia) Overweight (BMI 25.0-29.9) Vitamin D deficiency Impaired fasting glucose Mixed hyperlipidemia Vitamin B12 deficiency B12 deficiency Trapezius muscle strain Ileostomy dysfunction CASSIA (generalized anxiety disorder) Sinusitis Presence of ileostomy Annual physical exam Presence of IVC filter Transaminitis Hypertriglyceridemia Inflammatory bowel diseases (IBD) Ulcerative colitis Sleep disorder breathing Infection of lip Lumbar disc herniation with radiculopathy Right knee injury Injury of lumbar spine Infected nasal abrasion Lumbar radiculopathy, chronic Constipation by delayed colonic transit Allergic rhinitis Obesity Colitis Zinc deficiency Chronic nasal congestion Nasal sinus congestion Obese Low libido GERD without esophagitis H/O deep venous thrombosis H/O acute pancreatitis Hypertriglyceridemia Surgical History History of ileostomy History of colectomy History of ileostomy History of resection of rectum Family History Father CVD (cardiovascular disease) Mother Hypertension Diabetes Maternal Grandmother Liver cancer Maternal Grandfather CVD (cardiovascular disease) Family/Other Diabetes Social History Household Members: Other Household Members Other:: girlfriend and children Housing: House Do you presently have visiting nurse or other home services: No Alcohol intake: never Patient Tobacco Use Status: Former Tobacco user e-Cigarette/Vaping Use: Never Used Second Hand Smoke Exposure: Yes Substance Use Type: Marijuana service: No Current occupational status: employed Current occupation: [employer] Cognitive needs: No Hearing needs: No Vision needs: No Assessment & Plan Assessment & Plan (1) HLD (hyperlipidemia): Code(s): E78.5 - Hyperlipidemia, unspecified Category: Medical Plan: current wt: 95 kg (04/25 ) est kcal needs as per MSJ: 2500 est protein needs as per 1 g/kg BW: 100 est fluid needs as per 30 ml/kg BW: 3000 Recommended fiber > 12 g /day and gradually increase up to 20 g /day or as tolerated Nutrition topics discussed : Reviewed (R), Pt verbalized understanding (V) , not applicable (N/A) R, V, N/A : Healthy Plate Method Concept: R, V, N/A: Carbohydrates: food sources of carbohydrates, relationship of carbohydrates to blood glucose, fatty liver GI health. Recommended total amount of carbohydrates per meals and snack. Differences between simple carbohydrates and complex carbohydrates R, V, N/A: Lean protein foods including vegan , vegetarian sources of protein. Benefits of protein (including but not limited to healing, nutritional value , benefits in weight loss, glucose control R, : Fats : Source of fats, benefits of fats. Difference between saturated and unsaturated fats. Saturated fats and its contribution to inflammation R, V, N/A: Fiber: food sources and role of fiber in the diet (including but not limited to its role as a prebiotic, benefits in constipation, role in IBS , role in glucose control and cholesterol level) R, : Hydration: role of hydration and prevention of dehydration or over hydration. Foods and water content. R, : Vitamins and Minerals in foods and supplements R, V, N/A: Interpreting food labels, including serving size, macronutrients, vitamins, minerals, allergens, ingredient list , % daily value Patient Instructions: Keep hydrated : have water with meals, ok to have a low sugar vitamin water (see list of options for hydration) , 12 cups/day HAve omega 3 fatty acids: Try 1 tbsp of flaxseed oil (1/2 tbs twice/day) Include foods with b vitamins: try Add 1 tbsp nutritional yeast to your food once a day work on reducing sugars (pastries and similar foods) Coding Level of Care Code Nutr Indiv Intake (31899) Diagnoses HLD (hyperlipidemia) E78.5 Time Spent (min) 30
--- OUTSIDE RECORDS SUMMARY | 2025-04-15 14:07 | XMS_ITS | Clinical Summary ---
Author Organization [facility] [employer] Address [address] [facility] [address] [place] [address] Care Team Providers Care Oil Well Fishing Tool Operator Name Role Phone Unavailable Primary Care Provider Unavailabl e Allergies No known active allergies Medications gemfibrozil (Lopid) 600 MG tablet Take 600 mg by mouth 2 times daily. 4 Active niacin ER 250 MG ER tablet Take 2 tablets by mouth in the morning. 4 Active amoxicillin-cla vulanate (Augmentin) 875-125 MG tablet Take 1 tablet by mouth 2 times daily. 5 Active clonazePAM (KlonoPIN) 1 MG tablet Take 1 mg by mouth if needed each day. Active cyclobenzaprine (Flexeril) 5 MG tablet TAKE 1 TABLET BY MOUTH 3 TIMES A DAY NEEDED MUSCLE SPASMS OR PAIN 5 Active dicyclomine (Bentyl) 10 MG capsule Take 10 mg by mouth before breakfast, before lunch, before evening meal, and at bedtime. 5 Active ibuprofen 800 MG tablet TAKE 1 TABLET BY MOUTH EVERY 8 HOURS NEEDED FOR PAIN FOR 10 DAYS 5 Active metoprolol succinate XL (Toprol-XL) 25 MG 24 hr tablet Take 25 mg by mouth Once per day. 5 Active omega-3 acid ethyl esters (Lovaza) 1 g capsule Take 2 capsules by mouth 2 times daily. 4 Active omeprazole (PriLOSEC) [address] capsule Take 40 mg by mouth Once per day. 4 Active predniSONE (Deltasone) 20 MG tablet Take 2 tablets by mouth Once per day. 5 Active Senna-Time 8.6 MG tablet 5 Active acetaminophen (Tylenol) 325 MG tablet Take 2 tablets (650 mg) by mouth every 6 (six) hours if needed for mild pain for up to 5 days. 30 tablet 5 03/24/20 25 Active Problems Problem Noted Date Diagnosed Date Acute pancreatitis without infection or necrosis 10/05/2020 Class 1 obesity in adult 10/05/2020 GERD (gastroesophageal reflux disease) History of DVT (deep vein thrombosis) 10/05/2020 Hypertriglyceridemia 10/05/[address] ([facility]) 10/05/2020 Microcytic anemia 10/05/2020 Presence of IVC filter 10/05/2020 Encounters Date Type Department Care Team Description 04/06/2025 8:00 AM EDT Office Visit [facility] [address] [place] [address] Austin Simmons Dental caries (Primary Dx); Periodontal disease 03/26/2025 8:00 AM EDT Office Visit [facility] [address] [place] [address] Austin Simmons 03/19/2025 8:00 AM EDT Office Visit [facility] [address] [place] [address] Troy Avila 03/19/2025 Travel 03/13/2025 3:30 PM EDT Office Visit [facility] [address] [place] [address] Jovon Doss 03/11/2025 3:00 PM EDT Office Visit [facility] [address] [place] [address] Austin Simmons Dental caries (Primary Dx); Pain, [...] Sign Reading Time Taken Comments Blood Pressure 124/80 04/06/2025 8:37 AM EDT Pulse 70 04/06/2025 8:37 AM EDT Temperature - - Respiratory Rate - - Oxygen Saturation - - Inhaled Oxygen Concentration - - Weight - - Height - - Body Mass Index - - Plan of Treatment Health Maintenance Due Date [...] 3 - 19+ 3-dose series) 1999 Dental Prophylaxis 03/24/2018 09/20/2017 DTaP/Tdap/Td Vaccines (2 - Td or Tdap) 10/27/2024 10/27/2014 COVID-19 Vaccine (3 - season) 2025 11/22/2020, 11/01/2020 Influenza Vaccine (#1) 2025 , 06/07/2022, 04/27/2021, Additional history exists Dental Oral Exam 10/06/2025 04/06/2025, 09/20/2017 Tobacco Screening 04/06/2026 04/06/2025 Dental X-Ray: Bitewings 04/07/2026 04/06/20 25, 03/26/2025, 03/13/2025, Additional history exists Dental X-Ray: Full Mouth 04/07/2028 04/06/2025, 08/31 Zoster Vaccines (1 of 2) 2030 RSV [...] Procedure Name Priority Date/Time Associated Diagnosis Comments PERIODIC ORAL EVALUATION - ESTABLISHED PATIENT Routine 04/06/2025 8:00 AM EDT CASE PRESENTATION, DETAILED AND EXTENSIVE TREATMENT PLANNING Routine 04/06/2025 8:00 AM EDT INTRAORAL - COMPLETE SERIES OF RADIOGRAPHIC IMAGES Routine 04/06/2025 8:00 AM EDT BITEWING - SINGLE RADIOGRAPHIC [...] ADULT Routine 09/20/2017 1 2:00 AM EDT from Last 3 Months or Most Recently Relevant to Health Maintenance Insurance [place] [id number] [place] [id number] [place] [id number] [place] [id number] [place] [id number]
--- OUTSIDE RECORDS SUMMARY | 2025-04-15 14:07 | XMS_ITS | Clinical Summary ---
Author Organization [facility] Address [address] [place] [address] Care Team Providers Care Helicopter Engineer Name Role Phone Unavailable Primary Care Provider [...]
--- OUTSIDE RECORDS SUMMARY | 2025-04-15 14:07 | XMS_ITS | Patient Health Record ---
Author Organization [facility] Address [address] [place] [address] Care Team Providers Care Recruiter Specialist Name Role Phone Dayton Gould Primary Care Provider Unavailab Pilo Johnson Jr Unavailable Allergies No Known Allergies Reason For Referral No Information Medications Medication SIG (Take, Route, Frequency, Duration) Notes Start Date End Date Status Fenofibrate 160 MG Oral; Duration: 30 Active Mometasone Furoate 50 MCG/ACT Nasal; Duration: 30 Active ALPRAZolam 1 MG (Schedule IV Drug) T MARCELA 1 TABLET BY MOUTH EVERY DAY AT BEDTIME Oral; Duration: 30 Active Atorvastatin Calcium 40 MG Oral; Duration: 30 Active clonazePAM 1 MG Oral; Duration: 30 Active Immunizations Vaccine Route Administration Date Status Comme nts Influenza Unknown 02/21/2021 Administered Influenza Unknown 05/31/2022 Refused Social History Alcohol Screen Question Answer Notes Did you have a drink containing alcohol in the p ast year? No Points 0 Interpretation Negative Section Notes: Nonsmoker; no alcohol Problems Problem Type SNOMED Code ICD Code Onset Dates Problem Status W/U Status Risk Notes Problem Ileostomy present (831646885) Ileostomy status (Z93.2) Active confirmed Problem Ulcerative colitis (76177634) Ulcerative colitis without complications, unspecified location (K51.90) Active confirmed Problem Hypertriglyceridemia (107348907) Hypertriglyceridemia (E78.1) Active confirmed Problem Pancreatitis (18535237) Pancreatitis (K85.90) Active confirmed Problem Acute pancreatitis (786519784) Acute pancreatitis without infection or necrosis, unspecified pancreatitis type (K85.90) Active confirmed Problem Ulcerative colitis (46277627) Ulcerative colitis, unspecified (K51.90) Active confirmed Plan Of Treatment Pending Test Test Name Order Date LIVER PROFILE 05/31/2022 Triglycerides 05/31/2022 Lipase 05/31/2022 Next Appt Details Provider Name:Pilo Giorgio child Jr, 07/30/2025 01:55:00 PM, [address] [facility], [address], [place], [address], Insurance Providers Payer Name Payer Address Payer Phone Subscriber Number Group Number Insured Name Patient Relationship to Insured Coverage Start Date Coverage End Date [facility] [address] [address] [place], [place] [id number] KAMARI DELEON Self - patient is the [...]
== END 2025-04-15 12:13 | disposition home or self-care (01) ==
LOC: HO.ENCR 11:21
PROVIDERS: PCP Physician Assistant; Visit Provider Dietitian, Registered
DX: E78.5 Hyperlipidemia, unspecified (principal)

== ENCOUNTER → 2025-04-15 11:20 | Outpatient (BNVA) | payer OTHER, SELFPAY | PROVIDERS: PCP Physician Assistant; Visit Provider Dietitian, Registered | DX: E78.5 Hyperlipidemia, unspecified (principal) | CPT/HCPCS: 97802 ==

== ENCOUNTER 2025-05-14 10:18 | Outpatient (AMB) | payer OTHER, SELFPAY ==
--- NOTE | 2025-05-14 10:19 | A.OFFVIS_ITS ---
Vital Signs 05/14/25 10:20 Height 5 ft 10 in Weight 207 lb 8 oz BMI 29.8 Intake Visit Reasons: Colostomy malfunction Intake Note: This patient presents for an assessment for colostomy malfunction. Pt c/o; reports he has been having his colostomy since he was 13 years old, reports his PCP attempted to put her pinky finger in the stoma to see if it is functioning correctly but the area is to narrow so she decided to referred patient to to see if he will need a surgery to open the stoma more. DI: 03/20/2025 CT abd/pelvis Windows Server Engineer Required: No Accompanied by: Self / Same As Patient Allergies cetirizine (From [facility]) Adverse Reaction (Mild, Verified 05/14/25 10:28) Nightmare lactose Adverse Reaction (Unknown, Verified 05/14/25 10:28) Diarrhea HPI HPI Colostomy malfunction: Details: 44-year-old male here to have his ileostomy checked. He has had an ileostomy since he was 13 years old for what he describes as ulcerative colitis/Crohns. He says that he was in [facility] a month ago because of decreased ileostomy output. He says at that time they inserted what appears to be a catheter through the ileostomy and this started to have output again. He was told to see me because of questions about obstruction. He says that he feels that the area was swollen around that time. He also thinks that sometimes there is undigested food that may be ?plugging? the ileostomy. Otherwise, his ileostomy has been functioning well the past month. He denies any nausea or vomiting. [facility] Medical History HLD (hyperlipidemia) Overweight (BMI 25.0-29.9) Vitamin D deficiency Impaired fasting glucose Mixed hyperlipidemia Vitamin B12 deficiency B12 deficiency Trapezius muscle strain Ileostomy dysfunction CASSIA (generalized anxiety disorder) Sinusitis Presence of ileostomy Annual physical exam Presence of IVC filter Transaminitis Hypertriglyceridemia Inflammatory bowel diseases (IBD) Ulcerative colitis Sleep disorder breathing Infection of lip Lumbar disc herniation with radiculopathy Right knee injury Injury of lumbar spine Infected nasal abrasion Lumbar radiculopathy, chronic Constipation by delayed colonic transit Allergic rhinitis Obesity Colitis Zinc deficiency Chronic nasal congestion Nasal sinus congestion Obese Low libido GERD without esophagitis H/O deep venous thrombosis H/O acute pancreatitis Hypertriglyceridemia Surgical History History of ileostomy History of colectomy History of ileostomy History of resection of rectum Family History Father CVD (cardiovascular disease) Mother Hypertension Diabetes Maternal Grandmother Liver cancer Maternal Grandfather CVD (cardiovascular disease) Family/Other Diabetes Social History Household Members: Other Household Members Other:: girlfriend and children Housing: House Do you presently have visiting nurse or other home services: No Alcohol intake: never Patient Tobacco Use Status: Former Tobacco user e-Cigarette/Vaping Use: Never Used Second Hand Smoke Exposure: Yes Substance Use Type: Marijuana service: No Current occupational status: employed Current occupation: [employer] Cognitive needs: No Hearing needs: No Vision needs: No Review of Systems Const Denies chills and Denies fever(s) Card Denies chest pain, Denies dyspnea and Denies dyspnea on exertion Resp Denies cough, Denies dyspnea and Denies dyspnea on exertion GI Details: Has ileostomy Denies hematochezia and Denies change in bowel habits Denies hematuria and Denies difficulty urinating Musc Denies back pain and Denies limited range of motion Neuro Denies focal weakness and Denies convulsions Psych Denies depression and Denies mood swings Physical Exam Vital Signs: BMI result Body Mass Index 29.8 Const General: comfortable and no acute distress Orientation/consciousness: patient oriented x3 Neck Neck: Yes no lymphadenopathy Resp Auscultation: clear to auscultation bilaterally Cardio Rhythm: regular rhythm GI Other: Ileostomy in his placed in the right side, good output Palpation (GI): Soft to palpation, nontender and no guarding Neuro General: patient oriented x3 Assessment & Plan Assessment & Plan (1) Presence of ileostomy: Code(s): Z93.2 - Ileostomy status Category: Medical Plan: He describes going to the ER in [facility] a month ago, stating that ileostomy seems to have been ?plug?. This has stoma has been functioning well the past month I was able to insert my pinky finger through it. There is good output currently. It does not appear that his ileostomy is obstructed. He also says that this may have been swollen around that time. I advised him to make sure that he discuss this with his marine safety officer Dr. Lan who he is scheduled to see in a few weeks. I am uncertain if this suggests IBD involving his ileum. I did tell him that currently it does not appear that he will require any surgical intervention He understands he can follow up in the office on a p.r.n. basis. Coding Level of Care Code New Pt Level 3 (78440) Diagnoses Presence of ileostomy Z93.2
[2025-05-14 10:20] VITALS: BMI 29.8
--- OUTSIDE RECORDS SUMMARY | 2025-05-14 12:33 | XMS_ITS | Encounter Summary ---
Author Organization [facility] Address [address] [facility] [address] [place] [address] Phone Care Team Providers Care Identity Management Developer Name Role Phone Dayton Gould Primary Care Provider + Encounter Details Date Type Department Care Team (Late st Contact Info) Description 07/29/2022 Procedure Pass [facility], Ct Scan - [address] [address] Social History Tobacco Use Types Packs/Day Years [...] 07/29/2022 3:45 PM Leola Flynn RN * [place] Suicide Severity Rating Scale (Screener/Recent Self-Report) Question [...] Description 09/20/2026 9:00 AM EDT Office Visit [facility] [address] [place] [address] Bernice Jacome [address] [facility], [address] [place] [address] [email or web address] documented [...] documented as of this encounter Care Teams Identity Management Developer Relationship Specialty Start Date End Date Dayton Gould PA [address] [place] [address] PCP - General 10/05/20 documented as of this encounter Additional Source Comments The information contained in this document represents components of the legal health record. It is not the complete legal health record.[facility]
--- OUTSIDE RECORDS SUMMARY | 2025-05-14 12:33 | XMS_ITS | Encounter Summary ---
Author Organization [facility] Address [address] [facility] [address] [place] [address] Phone Care Team Providers Care Application Software Developer Name Role Phone Dayton Gould Primary Care Provider + Encounter Details Date Type Department Care Team (Late st Contact Info) Description 06/16/2023 Procedure Pass [facility], Ct Scan - [address] [address] Social History Tobacco Use Types Packs/Day Years [...] 06/16/2023 6:47 PM Leandro Mukherjee RN * [place] Suicide Severity Rating Scale (Screener/Recent Self-Report) Question Answer Date of Assessment Author 1. Wish to be (Past 1 Month) No 023 6:47 PM Leandro Mukherjee RN 2. Non-Specific Active Suici william Thoughts (Past 1 Month) No 06/16/2023 6:47 PM Dimitri Mukherjee RN 6. Suicidal Behavior (Lifetime) No 6:47 PM Lenadro Mukherjee RN documented as of this encounter Plan of Treatment Upcoming Encounters Date Type Department Care Team (Late st Contact Info) Description 09/20/2026 9:00 AM EDT Office Visit [facility] [address] [place] [address] Bernice Jacome [address] [place] [address], [address] [place] [address] [email or web address] documented as of this [...] documented as of this encounter Care Teams Application Software Developer Relationship Specialty Start Date End Date Dayton Gould PA [address] [place] [address] PCP - General 10/05/20 documented as of this encounter Additional Source Comments The information contained in this document represents components of the legal health record. It is not the complete legal health record.[facility]
--- OUTSIDE RECORDS SUMMARY | 2025-05-14 12:33 | XMS_ITS | Encounter Summary ---
Author Organization [facility] Address [address] [place] [address] [place] [address] Phone Care Team Providers Care Lawyer Probate Name Role Phone Dayton Gould Primary Care Provider + Encounter Details Date Type Department Care Team (Late st Contact Info) Description 09/12/2023 Procedure Pass [facility] [address] [place] [address] Social History Tobacco Use Types Packs/Day Years [...] Visit [facility] [address] [place] [address] [place] [address] Bernice Jacome [address], [address] [place] [address] [email or web address] documented as of [...] documented as of this encounter Care Teams Lawyer Probate Relationship Specialty Start Date End Date Dayton Gould PA [address] [place] [address] PCP - General 10/05/20 documented as of this encounter Additional Source Comments The information contained in this document represents components of the legal health record. It is not the complete legal health record.[facility]
--- OUTSIDE RECORDS SUMMARY | 2025-05-14 12:34 | XMS_ITS | Encounter Summary ---
Author Organization [facility] Address [address] [facility] [address] [place] [address] Phone Care Team Providers Care Hot Plate Press Operator Name Role Phone Dayton Gould Primary Care Provider + Encounter Details Date Type Department Care Team (Late st Contact Info) Description 08/24/2024 Procedure Pass [facility], Ct Scan - [facility] [address] [place] [address] Social History Tobacco Use Types Packs/Day Years [...] EDT Office Visit [facility] [address] [place] [address] [place] [address] Bernice Jacome [address] [place] [address], [address] [place] [address] [email or web address] documented as of this encounter Visit Diagnoses Not on filedocumented in this encounter Additional Health Concerns Infection Onset Date Last Indicated Resolved Time CoV-Risk 03/09/2025 03/09/2025 03/20/2025 1:21 AM EDT documented as of this encounter Care Teams Hot Plate Press Operator Relationship Specialty Start Date End Date Dayton Gould PA [address] [place] [address] PCP - General 10/05/20 documented as of this encounter Additional Source Comments The information contained in this document represents components of the legal health record. It is not the complete legal health record.[facility]
--- OUTSIDE RECORDS SUMMARY | 2025-05-14 12:34 | XMS_ITS | Encounter Summary ---
Author Organization [facility] Address [address] [facility] [address] [place] [address] Phone Care Team Providers Care Waist Fitter Name Role Phone Dayton Gould Primary Care Provider + Encounter Details Date Type Department Care Team (Late st Contact Info) Description 03/10/2025 Procedure Pass [facility], Ct Scan - [facility] [place] [address] [place] [address] Social History Tobacco Use Types Packs/Day Years [...] EDT Office Visit [facility] [address] [place] [address] [place] [address] Bernice Jacome [address] [place] [address], [address] [place] [address] [email or web address] documented as of this encounter Visit Diagnoses Not on filedocumented in this encounter Additional Health Concerns Infection Onset Date Last Indicated Resolved Time CoV-Risk 03/09/2025 03/09/2025 03/20/2025 1:21 AM EDT documented as of this encounter Care Teams Waist Fitter Relationship Specialty Start Date End Date Dayton Gould PA [address] [place] [address] PCP - General 10/05/20 documented as of this encounter Additional Source Comments The information contained in this document represents components of the legal health record. It is not the complete legal health record.[facility]
--- OUTSIDE RECORDS SUMMARY | 2025-05-14 12:34 | XMS_ITS | Encounter Summary ---
Author Organization [facility] Address [address] [facility] [address] [place] [address] Phone Care Team Providers Care Drying Tunnel Operator Name Role Phone Dayton Gould Primary Care Provider + Encounter Details Date Type Department Care Team (Late st Contact Info) Description 12/14/2021 Procedure Pass [facility], [address] [address] Social History Tobacco Use Types Packs/Day Years [...] Description 09/20/2026 9:00 AM EDT Office Visit [address] [address] Bernice Jacome [address] [place] [address], [address] [place] [address] [email or web address] documented as of this encounter Visit [...] documented as of this encounter Care Teams Drying Tunnel Operator Relationship Specialty Start Date End Date Dayton Gould PA [address] [place] [address] PCP - General 10/05/20 documented as of this encounter Additional Source Comments The information contained in this document represents components of the legal health record. It is not the complete legal health record.[facility]
--- OUTSIDE RECORDS SUMMARY | 2025-05-14 12:34 | XMS_ITS | Clinical Summary ---
Author Organization [employer] Address [address] [facility] [address] [place] [address] Care Team Providers Care Wastewater Superintendent Name Role Phone Unavailable Primary Care Provider Unavailabl e Allergies No known active allergies Medications gemfibrozil (Lopid) 600 MG tablet Take 600 mg by mouth 2 times daily. 06/13/2024 Active niacin ER 250 MG ER tablet Take 2 tablets by mouth in the morning. 12/10/2023 Active amoxicillin-cla vulanate (Augmentin) 875-125 MG tablet Take 1 tablet by mouth 2 times daily. 02/25/2025 Active clonazePAM (KlonoPIN) 1 MG tablet Take 1 mg by mouth if needed each day. Active cyclobenzaprine (Flexeril) 5 MG tablet TAKE 1 TABLET BY MOUTH 3 TIMES A DAY NEEDED MUSCLE SPASMS OR PAIN 12/01/2024 Active dicyclomine (Bentyl) 10 MG capsule Take 10 mg by mouth before breakfast, before lunch, before evening meal, and at bedtime. 03/10/2025 Active ibuprofen 800 MG tablet TAKE 1 TABLET BY MOUTH EVERY 8 HOURS NEEDED FOR PAIN FOR 10 DAYS 10/26/2024 Active metoprolol succinate XL (Toprol-XL) 25 MG 24 hr tablet Take 25 mg by mouth Once per day. 07/08/2024 Active omega-3 acid ethyl esters (Lovaza) 1 g capsule Take 2 capsules by mouth 2 times daily. 06/13/2024 Active omeprazole (PriLOSEC) [address] capsule Take 40 mg by mouth Once per day. 01/23/2024 Active predniSONE (Deltasone) 20 MG tablet Take 2 tablets by mouth Once per day. 02/25/2025 Active Senna-Time 8.6 MG tablet 04/03/2025 Active Active Problems Problem Noted Date Diagnosed Date Acute pancreatitis without infection or necrosis 10/05/2020 Class 1 obesity in adult 10/05/2020 GERD (gastroesophageal reflux disease) History of DVT (deep vein thrombosis) 10/05/2020 Hypertriglyceridemia 10/05/[address] ([facility]) 10/05/2020 Microcytic anemia 10/05/2020 Presence of IVC filter 10/05/2020 Encounters Date Type Department Care Team Description 05/14/2025 Travel 05/06/2025 2:30 PM EST Office Visit [facility] [address] [place] [address] Collin Hood Dental calculus (Primary Dx) 04/06/2025 8:00 AM EDT Office Visit [facility] [address] [place] [address] Austin Simmons Dental caries (Primary Dx); Periodontal disease 03/26/2025 8:00 AM EDT Office Visit [facility] [address] [place] [address] [place], [place] 03/19/2025 8:00 AM EDT Office Visit [facility] AD[facility] [address] [place] [address] Alijoselito, [place] 03/19/2025 Travel 03/13/2025 3:30 PM EDT Office Visit [facility] [address] [place] [address] Jovon Doss 03/11/2025 3:00 PM EDT Office Visit [facility] [address] [place] [address] Omayra Simmonsafa Dental caries (Primary Dx); Pain, dental from [...] Care Team (Late st Contact Info) Description 05/14/2025 2:30 PM EST Office Visit [facility] [address] [place], [place] [id number] Health Maintenance Due Date Last Done Comments [...] of 3 - 19+ 3-dose series) 1999 DTaP/Tdap/Td Vaccines (2 - Td or Tdap) 10/27/2024 10/27/2014 COVID-19 Vaccine (3 - season) 2025 11/22/2020, 11/01/2020 Influenza Vaccine (#1) 2025 , 06/07/2022, 04/27/2021, Additional history exists Dental Oral Exam 10/06/2025 04/06/2025, 09/20/2017 Dental Prophylaxis 11/04/2025 05/06/2025, 09/20/2017 Dental X-Ray: Bitewings 04/07/2026 04/06/20 25, 03/26/2025, 03/13/2025, Additional history exists Tobacco Screening 05/06/2026 05/06/2025 Dental X-Ray: Full Mouth 04/07/2028 04/06/2025, 08/31 [...] Procedure Name Priority Date/Time Associated Diagnosis Comments CASE PRESENTATION, DETAILED AND EXTENSIVE TREATMENT PLANNING Routine 05/06/2025 2:30 PM EST PROPHYLAXIS - ADULT Routine 05/06/2025 2 :30 PM EST PERIODIC ORAL EVALUATION - ESTABLISHED PATIENT Routine [...] MINOR PROCEDURE Routine 03/11/2025 3:00 PM EDT from Last 3 Months Insurance [employer] [place] [id number] [place] ST[place] AD[place] [place] [id number] [employer] [place] [id number] [employer] [id number] [employer] [id number]
--- OUTSIDE RECORDS SUMMARY | 2025-05-14 12:34 | XMS_ITS | Encounter Summary ---
Author Organization [facility] Address [address] [facility] [address] [place] [address] Phone Care Team Providers Care Crewman Main Battle Tank Name Role Phone Dayton Gould Primary Care Provider + Encounter Details Date Type Department Care Team (Late st Contact Info) Description 04/02/2025 Procedure Pass [facility], Ct Scan - [facility] [address] [place] [address] Social History Tobacco Use Types Packs/Day Years [...] 5:17 PM EDT Fabby Lynne RN * [place] Suicide Severity Rating Scale (Screener/Recent Self-Report) Question [...] EDT Office Visit [facility] [address] [place] [address] [place] [address] Bernice Jacome [address] [place] [address], [address] [place] [address] [email or web address] documented as of this encounter Visit Diagnoses Not on filedocumented in this encounter Care Teams Crewman Main Battle Tank Relationship Specialty Start Date End Date Dayton Gould PA [address] [place] [address] PCP - General 10/05/20 documented as of this encounter Additional Source Comments The information contained in this document represents components of the legal health record. It is not the complete legal health record.[facility]
--- OUTSIDE RECORDS SUMMARY | 2025-05-14 12:34 | XMS_ITS | Encounter Summary ---
Author Organization [facility] Address [address] [place] [address] Phone Care Team Providers Care Sfdc Developer Name Role Phone Dayton Gould Primary Care Provider + Encounter Details Date Type Department Care Team (Late st Contact Info) Description 06/07/2024 Procedure Pass [facility], Ct Scan - [facility] [address] [place] [address] Social History Tobacco Use Types Packs/Day Years [...] 06/08/2024 3:07 AM Tino Cooper RN * [place] Suicide Severity Rating Scale (Screener/Recent Self-Report) Question [...] 9:00 AM EDT Office Visit [facility] [address] [place] [address] Bern[address] Jacome [address] [place] [address], [address] [place] [address] [email or web address] documented [...] documented as of this encounter Care Teams Sfdc Developer Relationship Specialty Start Date End Date Dayton Gould PA [address] [place] [address] PCP - General 10/05/20 documented as of this encounter Additional Source Comments The information contained in this document represents components of the legal health record. It is not the complete legal health record.[facility]
--- OUTSIDE RECORDS SUMMARY | 2025-05-14 12:34 | XMS_ITS | Encounter Summary ---
Author Organization [facility] Address [address] [facility] [address] [place] [address] Phone Care Team Providers Care Medical Detail Representative Name Role Phone Dayton Gould Primary Care Provider + Encounter Details Date Type Department Care Team (Late st Contact Info) Description 12/11/2021 Procedure Pass [facility], Ct Scan - [address] [address] Social History Tobacco Use Types Packs/Day Years [...] 5:39 AM EDT Yoli Higginbotham RN * [place] Suicide Severity Rating Scale (Screener/Recent Self-Report) Question [...] 09/20/2026 9:00 AM EDT Office Visit [facility] [address] [place] [address] Bernice Jacome [address] [facility], [address] [place] [address] [email or web address] documented as of this encounter Visit [...] documented as of this encounter Care Teams Medical Detail Representative Relationship Specialty Start Date End Date Dayton Gould PA [address] [place] [address] PCP - General 10/05/20 documented as of this encounter Additional Source Comments The information contained in this document represents components of the legal health record. It is not the complete legal health record.[facility]
--- OUTSIDE RECORDS SUMMARY | 2025-05-14 12:34 | XMS_ITS | Encounter Summary ---
Author Organization [facility] Address [address] [facility] [address] [place] [address] Phone Care Team Providers Care Pile Driver Operator Helper Name Role Phone Dayton Gould Primary Care Provider + Encounter Details Date Type Department Care Team (Late st Contact Info) Description 12/15/2021 Procedure Pass [facility] Admitting Dept Virtual Department [address] [place] [address] Social History Tobacco Use Types Packs/Day Years [...] EDT Office Visit [facility] [address] [place] [address] Bernice Jacome [address] [place] [address], [address] [place] [address] [email or web address] documented as of this encounter [...] documented as of this encounter Care Teams Pile Driver Operator Helper Relationship Specialty Start Date End Date Dayton Gould PA [address] [place] [address] PCP - General 10/05/20 documented as of this encounter Additional Source Comments The information contained in this document represents components of the legal health record. It is not the complete legal health record.[facility]
--- OUTSIDE RECORDS SUMMARY | 2025-05-14 12:34 | XMS_ITS | Clinical Summary ---
Author Organization [facility] Address [address] [address] [facility] [address] [place] [address] Phone Care Team Providers Care Job Placement Specialist Name Role Phone Dayton Gould Primary [...] increase D5 NS infusion. Continue to monitor [id number] blood sugars with goals of eventually initiating [...] related pancreatitis and the last admitted to [facility] in September 2020 when triglyceride levels were greater than 4000 after stopping medication Was recently admitted to [facility] for recurrent pancreatitis. Was treated supportively and discharged home. He presented back to [facility] with recurrent abdominal pain, bloating, vomiting and [...] low-fat diet today Regular GI is in [place] Dr. Bright Follow over the day and [...] 04/03/2025 4:11 AM EDT Emergency [facility] Emergency [address] [place] [address] Discharge Disposition: Home or Self Care 04/02/[address] [address] 03/10/[address] [address] 03/09/2025 9:25 PM EDT - 03/10/2025 3:17 AM EDT Emergency [facility] Emergency [address] [place] [address] Breanne Locke MD Discharge Disposition: Home or Self Care 02/20/2025 12:26 AM EDT - 02/20/2025 5:53 AM EDT Emergency [facility] Emergency [address] [place] [address] Samir Dee, DO Discharge Disposition: Home or Self Care 02/20/[address] [address] from Last 3 Months Immunizations Immunization Administration [...] EDT Office Visit [facility] [address] [place] [address] Bernice Jacome [address] [place] [address], [address] [place] [address] [email or web address] Health Maintenance Due Date Last Done [...] patient's age to complete this topic IPV VACCINES Aged Out No longer eligi ble [...] 04/02/2025 11:09 PM EDT BASIC METABOLIC PANEL (BMP) STAT 04/02/2025 11:09 PM EDT CBC AND DIFFERENTIAL STAT 04/02/2025 11:[address] ABDOMEN/PELVIS WITH CONTRAST Routine 03/10/2025 12:31 AM EDT HETEROPHILE ANTIBODY (MONOSPOT) STAT 03/09/2025 10:35 PM EDT COVID PANDEMIC RESPIRATORY VIRAL ORDER (PRO) STAT 03/09/2025 10:23 PM EDT URINALYSIS WITH REFLEX TO URINE CULTURE STAT 03/09/2025 9:32 PM EDT TSH WITH REFLEX Routine 03/09/2025 6:44 PM EDT C-REACTIVE PROTEIN (CRP) Routine 03/09/2025 6:44 PM EDT LIPASE STAT 03/09/2025 6:44 PM EDT LFTS (HEPATIC PANEL) STAT 03/09/2025 6:44 PM EDT BASIC METABOLIC PANEL (BMP) STAT 03/09/2025 6:44 PM EDT CBC AND DIFFERENTIAL STAT 03/09/2025 6:[address] ABDOMEN/PELVIS WITH CONTRAST Routine 02/20/2025 2:46 AM EDT TROPONIN STAT 02/19/2025 11:02 PM EDT LFTS (HEPATIC PANEL) Routine 02/19/2025 9:58 PM EDT LIPASE Routine 02/19/2025 9:58 PM EDT TROPONIN STAT 02/19/2025 9:58 PM EDT BASIC METABOLIC PANEL (BMP) STAT 02/19/2025 9:58 PM EDT CBC AND [...] ALKALINE PHOSPHATASE 108 39 - 117 U/L [facility] TOTAL BILIRUBIN <0.2 0.0 - 1.2 mg/dL [facility] DIRECT BILIRUBIN 0.1 0.0 - 0.2 mg/dL [facility] Bilirubin (Indirect) NOT CALCULATED 0 - 1.5 mg/dL [facility] AST 14 0 - 37 U/L [facility] ALT 12 0 - 40 U/L [facility] TOTAL PROTEIN 7.0 6.5 - 8.0 g/dL [facility] ALBUMIN 4.0 3.9 - 4.8 g/dL [facility] GLOBULIN 3.0 1 - 4.8 g/dL [facility] A/G Ratio 1.33 1.00 - 4.80 RATIO [facility] Blood 04/02/2025 11:0 9 PM EDT 04/02/2025 11:11 PM EDT Henna Morales PA-C LAB BLOOD BKR ORDERABLES Fi nal Result [facility] [address] [place] [address] * (ABNORMAL) CBC and differential (04/02/2025 11:09 PM EDT) Only the most recent of3 resultswithin the time period is included. WBC 8.50 4.00 - 11.00 K/uL [facility] RBC 4.83 4.50 - 5.90 M/uL [facility] HGB 12.9(L) 13.5 - 17.5 g/dL [facility] HCT 37.4(L) 41.0 - 53.0 % [facility] PLT 363 150 - 450 K/uL [facility] MCV 77.4(L) 80.0 - 100.0 fL [facility] MCH 26.7(L) 27.0 - 31.0 pg [facility] MCHC 34.5 32.0 - 36.0 g/dL [facility] RDW 12.6 11.5 - 14.5 % [facility] MPV 8.9 8.4 - 12.0 fL [facility] NRBC 0.00 0.00 /100 WBCs [facility] ABSOLUTE NRBC 0.00 0.00 K/uL [facility] DIFF METHOD Auto [facility] NEUTS 37.4(L) 48.0 - 76.0 % [facility] LYMPHS 47.4(H) 18.0 - 41.0 % [facility] MONOS 8.1 4.0 - 11.0 % [facility] EOS 6.2(H) 0.0 - 5.0 % [facility] BASOS 0.7 0.0 - 1.5 % [facility] Granulocytes, immature (%) 0.2 0.0 - 0.9 % [facility] ABSOLUTE NEUTS 3.17 1.92 - 7.60 K/uL [facility] ABSOLUTE LYMPHS 4.03 0.72 - 4.10 K/uL [facility] ABSOLUTE MONOS 0.69 0.16 - 1.10 K/uL [facility] ABSOLUTE EOS 0.53(H) 0.00 - 0.50 K/uL [facility] ABSOLUTE BASOS 0.06 0.00 - 0.15 K/uL [facility] Granulocytes, immature 0.02 0.00 - 0.09 K/uL [facility] Blood 04/02/2025 11:0 9 PM EDT 04/02/2025 11:11 PM EDT [facility] PA-C LAB BLOOD BKR ORDERABLES Fi nal Result [address] [address] * Magnesium (04/02/2025 11:09 PM EDT) MAGNESIUM 2.1 1.6 - 2.6 mg/dL [facility] Blood 04/02/2025 11:0 9 PM EDT 04/02/2025 11:11 PM EDT [facility] PA-C LAB BLOOD BKR ORDERABLES Fi nal Result Performing Organization Address [facility] Co de Phone Number [address] [address] * Lipase (04/02/2025 11:09 PM EDT) Only the most recent of3 resultswithin the time period is included. LIPASE 58 16 - 63 U/L [facility] Blood 04/02/2025 11:0 9 PM EDT 04/02/2025 11:11 PM EDT [facility] PA-C LAB BLOOD BKR ORDERABLES Fi nal Result Performing Organization Address City/[facility] Co de Phone Number [address] [address] * (ABNORMAL) Basic metabolic panel (04/02/2025 11:09 PM EDT) Only the most recent of3 resultswithin the time period is included. SODIUM 136 133 - 146 mmol/L [facility] CHLORIDE 104 96 - 108 mmol/L [facility] POTASSIUM 3.8 3.3 - 5.1 mmol/L [facility] Comment:Specimen slightly he molyzed, result may be falsely elevated. CO2 21 21 - 35 mmol/L [facility] BUN 8 6 - 19 mg/dL [facility] CREATININE 0.80 0.5 - 1.5 mg/dL [facility] GLUCOSE 120(H) 70 - 99 mg/dL [facility] CALCIUM 9.4 8.4 - 10.3 mg/dL [facility] EGFR 111 >59 mL/min/1.7 3m2 [facility] Comment:Estimated glomerular filtration rate calculated using the CKD-EPI refit equation. ANION GAP 15 10 - 20 mmol/L [facility] Blood 04/02/2025 11:0 9 PM EDT 04/02/2025 11:11 PM EDT us Henna Morales PA-C LAB BLOOD BKR ORDERABLES Fi nal Result Performing Organization Address City/State/[facility] Co de Phone Number [facility] [address] [place] [address] * CT ABDOMEN/PELVIS WITH CONTRAST (03/10/2025 12:31 [...] EDT) Heterophile Ab NON-REACTI VE NON-REACTI VE [facility] Blood (Blood) 03/09/2025 10: 35 PM EDT 03/09/2025 10:49 PM EDT us Breanne Locke MD LAB BLOOD BKR ORDERABLES Fin al Result [address] [address] * COVID Pandemic Respiratory Viral Order (PRO) (03/09/2025 10:23 PM EDT) Test Ordered Rapid COVID has been ordered [facility] Specimen Source/Description NASAL [facility] SARS-CoV 2 (COVID-19) PCR Not Detected Not Detected [facility] Comment: SARS-CoV-2 not detected Negative results do not preclude SARS-CoV-2 infection and should not be used as the sole basis for patient management decisions. Negative results must be combined with clinical observations, patient history, and epidemiological information. Other (Nasopharyngeal swab) 03/09/2025 10:23 PM EDT 03/09/2025 11:13 PM EDT us Breanne Locke MD LAB GENERAL ORDERABLES Final Result Performing Organization Address [facility] Co de Phone Number [address] [address] * Urinalysis w/reflex Urine Culture (03/09/2025 9:32 PM EDT) COLOR Yellow Yellow [facility] CLARITY Clear [facility] GLUCOSE Negative Negative [facility] BILI Negative Negative [facility] KETONES Negative Negative [facility] SPECIFIC GRAVITY >1.030 1.005 - 1.030 [facility] BLOOD Negative Negative [facility] PH 6.0 5.0 - 8.0 [facility] Protein-UA Negative Negative [facility] NITRITE Negative Negative [facility] Leukocyte esterase, ur Negative Negative [facility] Urine (Urine) 03/09/2025 9:3 2 PM EDT 03/09/2025 9:54 PM EDT us Carlos Eduardo Cummins MD LAB URINE ORDERABLES Fin al Result Performing Organization Address [facility] Co de Phone Number [address] [address] * TSH with reflex (03/09/2025 6:44 PM EDT) TSH 0.70 0.27 - 4.20 uIU/mL [facility] 03/09/2025 6:44 PM EDT 03/09/2025 7:00 PM EDT us Carlos Eduardo Cummins MD LAB BLOOD BKR ORDERABLES Final Result Performing Organization Address [facility] Co de Phone Number [address] [address] * C-Reactive Protein (03/09/2025 6:44 PM EDT) C REACTIVE PROTEIN <3.0 0.0 - 4.0 mg/L [facility] 03/09/2025 6:44 PM EDT 03/09/2025 7:00 PM EDT us Carlos Eduardo Cummins MD LAB BLOOD BKR ORDERABLES Final Result [facility] [address] [place] [address] * CT ABDOMEN/PELVIS WITH CONTRAST (02/20/2025 2:46 [...] HS Gen5 <6 0 - 14 ng/L [facility] Blood 02/19/2025 11:0 2 PM EDT 02/19/2025 11:12 PM EDT us Elias Gotti MD LAB BLOOD BKR ORD ERABLES Final Result [address] [address] * ECG 12-LEAD (02/19/2025 9:27 PM EDT) Ventricular Rate EKG/MIN 85 BPM [facility] Atrial Rate 85 BPM [facility] OR Interval 144 ms [facility] QRS Duration 82 ms [facility] QT Interval 382 ms [facility] QTC Interval 454 ms [facility] P [place] 56 degrees [facility] R Wave [place] 23 degrees [facility] T Wave [place] 11 degrees [facility] 02/19/2025 9:27 PM EDT [...] (02/29/2024 5:05 PM EDT) HDL 21 mg/dL [facility] Comment: Interpretation <40 mg/dL: Low HDL cholesterol (major risk factor for CHD) Greater than or equal to 60 mg/dL: High HDL cholesterol ( negative risk factor for CHD) HDL - cholesterol is affected by a number of factors, e.g. smoking, excerise, hormones, sex and age. CHOLESTEROL 764(H) 0 - 240 mg/dL [facility] TRIGLYCERIDES 3,858(H) 30 - 160 mg/dL [facility] LDL NOT CALCULATED 50 - 129 mg/dL [facility] Comment: Unable to calculate due to elevated TRIG of greater than 400. A measured LDL will be performed. CARDIAC RISK RATIO 36.4(H) 3.4 - 5.0 [facility] Blood 02/29/2024 5:05 PM EDT 02/29/2024 5:07 PM EDT us Alexander Foster PA-C LAB BLOOD BKR ORDERABLES Marie l Result [facility] [address] [place], [place] [id number] from Last 3 Months or Most Recently Relevant to Health Maintenance Insurance [employer] [address] [place] [id number] [facility] [address] [place] [id number] [facility] [address] [place] [id number] [facility] [address] [place] [id number] [facility] ACO [facility] Advance Directives For more information, please contact: [phone] (9AM - 5PM [facility], Sunday-Sunday) Documents on File Type Date Recorded Patient Clip Coater Expl anation Healthcare Proxy 03/11/2024 4:11 PM [...] Discussion Comments: presumed on basis of a [facility] Teams Job Placement Specialist Relationship Specialty [place] [address] [place] [address] PCP - General 10/05/20 Additional Source Comments The information contained in this document represents components of the legal health record. It is not the complete legal health record.[facility]
--- OUTSIDE RECORDS SUMMARY | 2025-05-14 12:34 | XMS_ITS | Encounter Summary ---
Author Organization [facility] Address [address] [place] [address] Phone Care Team Providers Care Fishing Tool Technician Oil Well Name Role Phone Dayton Gould Primary Care Provider + Encounter Details Date Type Department Care Team (Late st Contact Info) Description 06/09/2024 Procedure Pass [facility], Ct Scan - [facility] [address] [place] [address] Social History Tobacco Use Types Packs/Day Years [...] 09/20/2026 9:00 AM EDT Office Visit [facility] [place] [facility] [address] [place] [address] Bernice Jacmoe [address] [place] [address], [address] [place] [address] [email or web address] documented as of this encounter Visit Diagnoses Not on filedocumented in this encounter Additional Health Concerns Infection Onset Date Last Indicated Resolved Time CoV-Risk Comment:Per note documentation 08/04/2024 08/04/2024 9:21 AM EST CDiff-Risk 08/04/2024 08/05/2024 08/05/2024 2:09 AM EST CoV-Risk 03/09/2025 03/09/2025 03/20/2025 1:21 AM EDT documented as of this encounter Care Teams Fishing Tool Technician Oil Well Relationship Specialty Start Date End Date Dayton Gould PA [address] [place] [address] PCP - General 10/05/20 documented as of this encounter Additional Source Comments The information contained in this document represents components of the legal health record. It is not the complete legal health record.[facility]
--- OUTSIDE RECORDS SUMMARY | 2025-05-14 12:34 | XMS_ITS | Encounter Summary ---
Author Organization [facility] Address [address] [facility] [address] [place] [address] Phone Care Team Providers Care Cleaner Touch Up Worker Name Role Phone Dayton Gould Primary Care Provider + Encounter Details Date Type Department Care Team (Late st Contact Info) Description 02/20/2025 Procedure Pass [facility], Ct Scan - [facility] [address] [place] [address] Social History Tobacco Use Types Packs/Day Years [...] EDT Office Visit [facility] [address] [place] [address] [place] [address] Bernice Jacome [address] [place] [address], [address] [place] [address] [email or web address] documented as of this encounter Visit Diagnoses Not on filedocumented in this encounter Additional Health Concerns Infection Onset Date Last Indicated Resolved Time CoV-Risk 03/09/2025 03/09/2025 03/20/2025 1:21 AM EDT documented as of this encounter Care Teams Cleaner Touch Up Worker Relationship Specialty Start Date End Date Dayton Gould PA [address] [place] [address] PCP - General 10/05/20 documented as of this encounter Additional Source Comments The information contained in this document represents components of the legal health record. It is not the complete legal health record.[facility]
--- OUTSIDE RECORDS SUMMARY | 2025-05-14 12:34 | XMS_ITS | Encounter Summary ---
Author Organization [employer] Address [address] [facility] 7[address] [place] [address] Care Team Providers Care Single Corner Cutter Name Role Phone Unavailable Primary Care Provider Unavailabl e Encounter Details Date Type Department Care Team (Latest Contact Info) Description 05/14/2025 Travel Social History Tobacco Use Types Packs/Day [...] Description 05/14/2025 2:30 PM EST Office Visit [facility] [address] [place] [address] documented as of this encounter Visit Diagnoses Not on filedocumented in this encounter
--- OUTSIDE RECORDS SUMMARY | 2025-05-14 12:34 | XMS_ITS | Patient Health Record ---
Author Organization [facility] Address [address] [place] [address] Care Team Providers Care Anesthesiologist Assistant Certified Name Role Phone Dayton Gould Primary Care [...] W/U Status Risk Notes Problem Ileostomy present (019010881) Ileostomy status (Z93.2) Active confirmed Problem Ulcerative colitis (98342665) Ulcerative colitis without complications, unspecified location (K51.90) Active confirmed Problem Hypertriglyceridemia (075538211) Hypertriglyceridemia (E78.1) Active confirmed Problem Pancreatitis (57424497) Pancreatitis (K85.90) Active confirmed Problem Acute pancreatitis (050314236) Acute pancreatitis without infection or necrosis, unspecified pancreatitis type (K85.90) Active confirmed Problem Ulcerative colitis (40791935) Ulcerative colitis, unspecified (K51.90) Active confirmed Plan Of Treatment Pending Test Test Name Order Date LIVER PROFILE 05/31/2022 Triglycerides 05/31/2022 Lipase 05/31/2022 Next Appt Details Provider Name:Pilo Giorgio child Jr, 07/30/2025 01:55:00 PM, [address] [facility], [address], [place], [address], Insurance Providers Payer Name Payer Address Payer Phone Subscriber Number Group Number Insured Name Patient Relationship to Insured Coverage Start Date Coverage End Date [facility] [address] [address] [place], [place] [id number] KAMARI DELEON Self - patient is the [...]
== END 2025-05-14 10:51 | disposition home or self-care (01) ==
LOC: HO.HGS 10:19
PROVIDERS: PCP Physician Assistant; Visit Provider Surgery
DX: Z93.2 Ileostomy status (principal)
CPT/HCPCS: 99213

== ENCOUNTER → 2025-05-14 10:18 | Outpatient (BNVA) | payer OTHER, SELFPAY | PROVIDERS: PCP Physician Assistant; Visit Provider Surgery | DX: Z93.2 Ileostomy status (principal) | CPT/HCPCS: 99212 ==

== ENCOUNTER 2025-05-26 03:30 | Emergency (ER) | payer OTHER, SELFPAY ==
--- NOTE | ~2025-05-26 | CT_ITS ---
CLINICAL HISTORY: ileostomy hx of obscruction pancreatitis CT abdomen and pelvis with contrast Comparison: CT/REG/FL/SR - CT ABDOMEN PELVIS WITH IV CONTRAST - 07/25/2022 11:32 PM EST Findings: Mild bibasilar lung atelectasis. Stable small benign splenic hypodensity. Pancreas, gallbladder, liver, and adrenals are unremarkable. A few too small to characterize right renal hypodensities. No hydronephrosis or urinary tract stone. Redemonstration of total colectomy and right lower quadrant ileostomy. Short segmental mild distention (up to 36 mm in width) of an ileal loop just proximal to the ileostomy (administered oral contrast extends into the ileostomy) due to ileus or low-grade obstruction. No evidence of small-bowel distention proximal to this level. Borderline enlarged small bowel mesenteric nodes measuring up to 6 mm in short axis. IVC filter also seen on prior. Up to 10 mm smooth thickening of predominantly the right side of the mildly distended urinary bladder at least partially due to underdistention. Finding could be further evaluated with a nonemergent urinary bladder ultrasound. No acute fracture. Spinal degenerative changes. IMPRESSION: 1. Redemonstration of total colectomy and right lower quadrant ileostomy. Short segmental mild distention (up to 36 mm in width) of an ileal loop just proximal to the ileostomy (administered oral contrast extends into the ileostomy) due to ileus or low-grade obstruction. No evidence of small-bowel distention proximal to this level. 2. Up to 10 mm smooth thickening of predominantly the right side of the mildly distended urinary bladder at least partially due to underdistention. Finding could be further evaluated with a nonemergent urinary bladder ultrasound. This document has been electronically signed by: Angie Hernandez MD on 05/26/2025 08:22:32
[2025-05-26 03:33] VITALS: BP 152/96; PULSE 76; RESP 20; TEMP 36.6; O2SAT 97; BMI 30.1
[2025-05-26 03:59] LABS: Hematocrit 38.4 % (42.0-52.0); Hemoglobin 13.6 g/dl (14.0-18.0); Imm Gran Abs Auto 0.02 X10*3/uL (0.00-0.03); Imm Gran Pct Auto 0.2 % (0.0-0.4); Lymphocytes Absolute Auto 4.5 X10*3/uL (1.2-4.9); MANUAL DIFF FLAG NO; Mean Corpuscular HGB Conc 35.4 g/dl (31.0-36.0); Mean Corpuscular Hemoglobin 26.8 pg (27.0-33.0); Mean Corpuscular Volume 75.7 fL (80.0-98.0); NRBC Abs Auto 0.000 X10*3/uL (0.0-0.012); NRBC Pct Auto 0.0 /100WBC (0.0-0.2); Platelet Count 295 X10*3/uL (160-400); Red Blood Count 5.07 X10*6/uL (4.60-5.80); White Blood Count 9.3 X10*3/uL (4.8-10.8)
[2025-05-26 04:00] LABS: Appearance Urine Clear; Glucose Urine UA Negative (Negative); PH 5.0 (5.0-9.0); Specific Gravity - Urine 1.025 (1.005-1.025)
--- NOTE | 2025-05-26 04:10 | ED.ABDPAIN ---
HPI - Abdominal Pain General Chief Complaint: Abdominal Pain Stated Complaint: abd pain Time Seen by Provider: 05/26/25 03:45 Source: patient, family and old records reviewed Mode of arrival: ambulatory Limitations: no limitations History of Present Illness ED Provider: Dr. Yulia Perez HPI narrative: 45-year-old male with a history of ulcerative colitis status-post total colectomy with ileostomy at age 13 (later diagnosed as Crohn?s disease) who presents overnight for acute worsening of right-sided abdominal pain that awakened him from sleep. Pain is described as severe, pulsatile, and associated with a sensation of ?bulbing up? near the stoma. He reports associated nausea without vomiting and feels his ostomy is ?blocked.? Over the past several months he has experienced increasingly frequent similar episodes that have led to missed work. The current episode began after eating [employer] yesterday (burrito/tacos with tomato pieces); he has noted that lettuce, tomatoes, and onions commonly precipitate constipation/obstruction. He states only minimal stool and mostly air are currently passing through the ostomy; occasionally he notes small amounts of bright red blood when he manually attempts to relieve blockage with a cotton swab (Q-tip) at the stoma. No fever. Denies dysuria, hematuria, or testicular pain. He denies prior abdominal surgeries other than the original colectomy/ileostomy. Past medical history notable for pancreatitis, hyperlipidemia, and IVC filter placement in 2000 for prior clot. Related Data Home Medications ?Medication ?Instructions ?Recorded ?Confirmed metoprolol succinate 25 mg 25 mg PO DAILY 12/26/23 04/03/25 tablet,extended release 24 hr lorazepam 1 mg tablet 1 mg PO BEDTIME PRN 08/08/24 04/03/25 Previous Rx's ?Medication ?Instructions ?Recorded colostomy-Ileost.set,nonsteril 12 #5 ea 11/02/21 (2 1/2 ) (Premier Colostomy-Ileostomy) ostomy adhesive (Stomahesive Paste) #56.7 grams 11/02/21 ostomy supplies (Skin Prep Wipes) #50 ea 11/02/21 gemfibrozil 600 mg tablet 600 mg PO BID 30 days #60 tabs 10/25/24 niacin 250 mg tablet,extended 500 mg (2 x 250 mg) PO DAILY 90 10/30/24 release days #180 tabs ketoconazole 2 % topical cream 1 appl topical DAILY 4 weeks #60 02/25/25 grams omeprazole 40 mg capsule,delayed 40 mg PO DAILY PRN Acid Reflux #90 02/25/25 release caps mecobalamin (vitamin B12) 1,000 1,000 mcg PO DAILY 90 days #90 tabs 03/03/25 mcg chewable tablet cyanocobalamin (vitamin B-12) 1,000 mcg (15 mL) PO QWEEK 3 weeks 04/03/25 1,000 mcg/15 mL oral liquid #45 mL sennosides 8.6 mg tablet (Senna 8.6 mg PO DAILY #30 tabs 04/03/25 Lax) ibuprofen 800 mg tablet 800 mg PO Q8H PRN pain 10 days #30 04/30/25 tabs prednisone 20 mg tablet 40 mg (2 x 20 mg) PO DAILY 5 days 05/05/25 #10 tabs hydrocodone 5 mg-acetaminophen 325 1 tab PO Q6H PRN pain #12 tabs 05/26/25 mg tablet ondansetron 4 mg disintegrating 4 mg PO Q8H PRN nausea and 05/26/25 tablet vomiting #20 tabs Allergies Allergy/AdvReac Type Severity Reaction Status Date / Time cetirizine (From [facility]) AdvReac Mild Nightmare Verified 05/26/25 03:36 lactose AdvReac Unknown Diarrhea Verified 05/26/25 03:36 Review of Systems Review of Systems as per HPI, full review of systems performed and negative but for the above mentioned pertinent positives and negatives. [facility] Past Medical History Medical History HLD (hyperlipidemia) Overweight (BMI 25.0-29.9) Vitamin D deficiency Impaired fasting glucose Mixed hyperlipidemia Vitamin B12 deficiency B12 deficiency Trapezius muscle strain Ileostomy dysfunction CASSIA (generalized anxiety disorder) Sinusitis Presence of ileostomy Annual physical exam Presence of IVC filter Transaminitis Hypertriglyceridemia Inflammatory bowel diseases (IBD) Ulcerative colitis Sleep disorder breathing Infection of lip Lumbar disc herniation with radiculopathy Right knee injury Injury of lumbar spine Infected nasal abrasion Lumbar radiculopathy, chronic Constipation by delayed colonic transit Allergic rhinitis Obesity Colitis Zinc deficiency Chronic nasal congestion Nasal sinus congestion Obese Low libido GERD without esophagitis H/O deep venous thrombosis H/O acute pancreatitis Hypertriglyceridemia Surgical History History of ileostomy History of colectomy History of ileostomy History of resection of rectum Family History Family History Father CVD (cardiovascular disease) Mother Hypertension Diabetes Maternal Grandmother Liver cancer Maternal Grandfather CVD (cardiovascular disease) Family/Other Diabetes Social History Social History Household Members: Other Household Members Other:: girlfriend and children Housing: House Do you presently have visiting nurse or other home services: No Alcohol intake: never Patient Tobacco Use Status: Former Tobacco user Smoked in Last 30 Days: No e-Cigarette/Vaping Use: Never Used Second Hand Smoke Exposure: Yes Use of substances other than those prescribed or required for medical reasons: Yes Substance Use Type: Marijuana Advance Directives: No Advance Directives Information Provided: Yes service: No Current occupational status: employed Current occupation: [employer] Cognitive needs: No Hearing needs: No Vision needs: No Physical Exam ED Exam Exam: GENERAL: Ill-Appearing, appears uncomfortable. SKIN: Normal skin color for ethnicity, warm, dry, no rashes noted. HEENT:? Normocephalic, atraumatic, no stridor, dry mucous membranes, dentition intact, EOMI. NECK: Soft, supple, full ROM, midline structures nontender, no step-offs, no deformities, no lymphadenopathy. CHEST: Heart regular rhythm, no murmurs, symmetric chest rise and fall. PULMONARY: Clear to auscultation bilaterally, diminished at the bases, no labored breathing, no wheezes/rhales/rhonchi. ABDOMINAL: Soft, nondistended, R sided pain with light pressure, ostomy bag in place in RUQ distended with air, positive bowel sounds in all quadrants. : Deferred. MUSCULOSKELETAL: Normal tone, full range of motion, no deformities, no peripheral edema. NEURO: Alert and oriented x3, CN II through XII intact, equal strength and sensation bilateral upper and lower extremities, no focal neurologic deficits.? PSYCHIATRIC: Flat affect, fluid speech, good eye contact and appropriate demeanor. Vital Signs: Vital Signs - 24 hr 05/26/25 03:33 05/26/25 06:14 05/26/25 08:26 Temperature 98 F 97.9 F Pulse Rate 76 65 Respiratory Rate 20 16 16 Blood Pressure 152/96 H 140/86 H Pulse Oximetry 97 98 Oxygen Delivery Method Room Air Room Air 05/26/25 08:37 Temperature 98.1 F Pulse Rate 64 Respiratory Rate 14 Blood Pressure 133/87 Pulse Oximetry 97 Oxygen Delivery Method Room Air BMI result Body Mass Index 30.1 Course Course Course Narrative: 7:26 AM 05/26/2025 (BECKY CASTRO): Received sign-out on this patient pending CT scan. Hemoglobin at baseline, bicarb slightly low but suspect that is due to his ileostomy. He was given IV fluids 8:29 AM 05/26/2025 (BECKY CASTRO): I spoke to the patient about ileus versus early small bowel obstruction. He states he is passing gas from his ileostomy and stool. He wants to see how he is feeling after medications here and states he would prefer to go home with bowel rest and clear liquids along with pain management. He is reasonable if he does decide to do this I think that is fine. He was told he would have to return for any worsening symptoms. I am going to reassess him once his pain medications are administered. The patient has received IV morphine x2 so he continues to receive IV narcotics for his pain he will need admission. 10:00 AM 05/26/2025 (BECKY ): At this time he is attempting p.o. trial as he is very eager to go. He was able to passes p.o. challenge. Unfortunately he did have a roommate and he felt the roommate was very disrespectful and using derogatory racial terms towards him. As soon as I was made aware of this I immediately escorted the patient myself out to a different room to prevent any further issues. Medical Decision Making Medical Decision Making MDM Narrative: Assessment & Plan 45-year-old male with long-standing ileostomy now presenting with acute right-sided abdominal pain and decreased ostomy output concerning for partial small-bowel/ostomy obstruction. Differential diagnosis for this patient is broad.? It includes gastroenteritis, gastroparesis, cholecystitis, bowel obstruction, diverticulitis, peptic ulcer disease, pyelonephritis, vascular pathology, among many others.? A broad-based workup based on history and physical examination was obtained. ? Patient was given acetaminophen for pain control. ? Problem #1: Abdominal pain / suspected partial small-bowel obstruction Assessment: Acute exacerbation with decreased ostomy output, right-sided tenderness, and history of recurrent blockages. Patient reports that eating fiber (whole wheat bread, fruits) sometimes worsens constipation/blockage despite trying to increase fiber intake. Plan: CT abdomen/pelvis to evaluate for obstruction. Provide IV analgesia for pain control. Administer antiemetic for nausea. Monitor ostomy output and clinical status. Problem #2: Ileostomy with possible stenotic stoma Assessment: Patient reports prior surgical opinion that the stoma opening is ?too narrow? and chronically inflamed; recurrent constipation/obstruction. Patient manually attempts to relieve blockage with a cotton swab (Q-tip) at the stoma. Plan: Document findings; consider surgical/GI consult after imaging. Reinforce need for adequate hydration and dietary modifications once acute episode resolved. Problem #3: Nausea Assessment: Associated with abdominal pain/possible obstruction. Plan: IV antiemetic as above. Differential Diagnosis Differential Diagnoses: The differential diagnosis associated with the presentation includes (as above) Admission/Observation Consideration of admission/observation: Escalation of care including admission/observation considered Lab Data MDM Lab Attestation statement: I reviewed the patient's lab results. 05/26/25 03:53 05/26/25 03:53 Labs: Lab Results 05/26/25 Range/Units 03:53 WBC 9.3 (4.8-10.8) X10*3/uL RBC 5.07 (4.60-5.80) X10*6/uL Hgb 13.6 L (14.0-18.0) g/dl Hct 38.4 L (42.0-52.0) % MCV 75.7 L (80.0-98.0) fL MCH 26.8 L (27.0-33.0) pg MCHC 35.4 (31.0-36.0) g/dl RDW 12.9 (11.0-16.0) % Plt Count 295 (160-400) X10*3/uL MPV 8.7 L (9.4-12.4) fL Immature Gran % (Auto) 0.2 (0.0-0.4) % Neut % (Auto) 34.9 L (45-73) % Lymph % (Auto) 48.3 H (20-40) % [place]undy % (Auto) 8.6 (2-11) % Eos % (Auto) 7.4 H (0-4) % Baso % (Auto) 0.6 (0-2) % Lymph # (Auto) 4.5 (1.2-4.9) X10*3/uL [place] # (Auto) 0.8 (0.1-1.2) X10*3/uL Eos # (Auto) 0.7 H (0.0-0.4) X10*3/uL Baso # (Auto) 0.1 (0.0-0.2) X10*3/uL Abs Immat Gran (auto) 0.02 (0.00-0.03) X10*3/uL Absolute Neuts (auto) 3.2 (2.0-8.3) x10*3/uL Absolute Nucleated RBC 0.000 (0.0-0.012) X10*3/uL Nucleated RBC % (auto) 0.0 (0.0-0.2) /100WBC Sodium 138 (135-145) mmol/L Potassium 3.8 (3.3-5.1) mmol/L Chloride 109 H (96-108) mmol/L Carbon Dioxide 18 L (22-29) mmol/L Anion Gap 15 (12-20) BUN 13 (9-16) mg/dL Creatinine 1.03 (0.5-1.4) mg/dL Estim Creat Clear Calc 104.9 Estimated GFR > 60 Random Glucose 140 H (60-115) mg/dL Calcium 9.2 (8.4-10.2) mg/dL Total Bilirubin 0.2 (0.0-1.0) mg/dL AST 24 (5-37) U/L ALT 18 (0-40) U/L Alkaline Phosphatase 101 (39-117) U/L Total Protein 7.6 (6.5-8.0) g/dL Albumin 4.3 (3.5-5.0) g/dL Lipase 52 (8-78) U/L Urine Color Yellow Urine Appearance Clear Urine pH 5.0 (5.0-9.0) Ur Specific [place] 1.025 (1.005-1.025) Urine Protein Negative (Neg-Trace) mg/dL Urine Glucose (UA) Negative (Negative) mg/dL Urine Ketones Negative (Negative) mg/dL Urine Blood Negative (Negative) Urine Nitrite Negative (Negative) Ur Leukocyte Esterase Negative (Negative) Independent Interpretation I performed an independent interpretation of an: EKG Radiology Impression Discussion of test interpretation with radiology: I have reviewed the radiologist's reading. Independent Historian Clinical information obtained from an independent historian. History obtained from or confirmed by: Spouse External Record Review External record reviewed: Inpatient record and Office record Chronic Conditions Patient?s care impacted by: Other (Ulcerative colitis, Crohn's disease) Social Determinants Patient?s care significantly limited by Social Determinants of Health including: Other Social Determinant of Health Medications Administered Discontinued Medications Generic Name Dose Route Start Last Admin Trade Name Freq PRN Reason Stop Dose Admin Lactated Ringer's 1,000 mls @ 999 mls/hr 05/26/25 04:11 05/26/25 05:53 Lr IV 05/26/25 05:11 Infused .Q1H1M ONE Infusion Acetaminophen 1,000 mg in 100 mls @ 400 mls/hr 05/26/25 04:11 05/26/25 05:20 Ofirmev IV 05/26/25 04:25 Infused ONCE ONE Infusion Iohexol 100 ml 05/26/25 06:28 05/26/25 06:28 Iohexol 350 Mg/Ml 100 Ml Infus..Btl IV 05/26/25 06:29 85 ml ONCE ONE Administration Morphine Sulfate 4 mg 05/26/25 05:17 05/26/25 05:34 Morphine Sulfate 4 Mg/Ml Cartridge IVPUSH 05/26/25 05:18 4 mg ONCE ONE Administration Protocol Morphine Sulfate 4 mg 05/26/25 08:00 05/26/25 08:26 Morphine Sulfate 4 Mg/Ml Cartridge IVPUSH 05/26/25 08:01 4 mg ONCE ONE Administration Protocol Ondansetron HCl 4 mg 05/26/25 04:11 05/26/25 04:44 Ondansetron Hcl 4 Mg/2 Ml Vial IVPUSH 05/26/25 04:12 4 mg ONCE ONE Administration Discharge Plan Discharge Clinical Impression: Ileus Abdominal pain Qualifiers: Abdominal location: generalized Qualified Code(s): R10.84 - Generalized abdominal pain Patient Disposition: Home, Self-Care Instructions: Clear Liquid Diet (ED), Abdominal Pain (ED), Ileus (ED) Additional Instructions: You need to be on a clear liquid diet for the next 48 hours, then advance her diet very slowly You were offered admission but declined Remember if your symptoms worsen, you have inability to eat or drink, your not producing gas from the ileostomy or stool these are reasons to return Please stay hydrated There was an incidental finding on your CT scan You should follow up with Urology they should be calling you next week for follow up appointment I have listed there number if you have not heard from them in the next 5-7 days [facility] will be contacting you within 2 business days after being discharged from the Emergency Department. During this phone call, they will inform you when your follow up appointment will be scheduled. If you have not received a call from [facility] after 2 business days, please call the office at [phone]. 1. Redemonstration of total colectomy and right lower quadrant ileostomy. Short segmental mild distention (up to 36 mm in width) of an ileal loop just proximal to the ileostomy (administered oral contrast extends into the ileostomy) due to ileus or low-grade obstruction. No evidence of small-bowel distention proximal to this level. 2. Up to 10 mm smooth thickening of predominantly the right side of the mildly distended urinary bladder at least partially due to underdistention. Finding could be further evaluated with a nonemergent urinary bladder ultrasound. Prescriptions: New hydrocodone-acetaminophen 5-325 mg tablet 1 tab PO Q6H PRN (Reason: pain) Qty: 12 0RF Rx Instructions: partial fill okay; Partial Fill upon patient request. ondansetron 4 mg tablet,disintegrating 4 mg PO Q8H PRN (Reason: nausea and vomiting) Qty: 20 0RF No Action (DME) Skin Prep Wipes [facility] See Rx Instructions .Route Qty: 50 8RF Rx Instructions: As directed (DME) Stomahesive Paste Paste See Rx Instructions .Route Qty: 56.7 8RF Rx Instructions: As directed (DME) Premier Colostomy-Ileostomy 12 (2 / ) [facility] See Rx Instructions .Route Qty: 5 8RF Rx Instructions: As directed gemfibrozil 600 mg tablet 600 mg PO BID 30 Days Qty: 60 3RF niacin 250 mg tablet extended release 500 mg PO DAILY 90 Days Qty: 180 1RF mecobalamin (vitamin B12) 1,000 mcg tablet,chewable 1,000 mcg PO DAILY 90 Days Qty: 90 1RF cyanocobalamin (vitamin B-12) 1,000 mcg/15 mL liquid 1,000 mcg PO QWEEK 21 Days Qty: 45 0RF Rx Instructions: 1000 mcg IM every week x 3 weeks, then continue 1000 mcg orally QD ibuprofen 800 mg tablet 800 mg PO Q8H PRN (Reason: pain) 10 Days Qty: 30 0RF prednisone 20 mg tablet 40 mg PO DAILY 5 Days Qty: 10 0RF metoprolol succinate 25 mg tablet extended release 24 hr 25 mg PO DAILY lorazepam 1 mg tablet 1 mg PO BEDTIME PRN sennosides [Senna Lax] 8.6 mg tablet 8.6 mg PO DAILY Qty: 30 1RF omeprazole 40 mg capsule,delayed release(DR/EC) 40 mg PO DAILY PRN (Reason: Acid Reflux) Qty: 90 2RF ketoconazole 2 % cream 1 appl topical DAILY 28 Days Qty: 60 0RF Referrals: [facility] Urology Services [Provider Group, Urology] Print Language: Tajik
[2025-05-26 04:14] LABS: Alanine Aminotransferase 18 U/L (0-40); Albumin Level 4.3 g/dL (3.5-5.0); Alkaline Phosphatase 101 U/L (39-117); Anion Gap 15 (12-20); Aspartate Amino Transferase 24 U/L (5-37); Blood Urea Nitrogen 13 mg/dL (9-16); Calcium 9.2 mg/dL (8.4-10.2); Carbon Dioxide 18 mmol/L (22-29); Chloride 109 mmol/L (96-108); Creatinine Clr Calc Pharmacy 104.9; Estimated Glomerular Filt Rate > 60; Lipase 52 U/L (8-78); Potassium 3.8 mmol/L (3.3-5.1); Sodium 138 mmol/L (135-145); Total Protein 7.6 g/dL (6.5-8.0)
--- OUTSIDE RECORDS SUMMARY | 2025-05-26 04:32 | XMS_ITS | Encounter Summary ---
Author Organization [facility] Address [address] [facility] [address] [place] [phone] Phone Care Team Providers Care Flour Blender Helper Name Role Phone Dayton Gould Primary Care Provider + Encounter Details Date Type Department Care Team (Late st Contact Info) Description 12/11/2021 Procedure Pass [facility], Ct Scan - [address] [address] Social History Tobacco Use Types Packs/Day Years [...] 5:39 AM EDT Yoli Higginbotham RN * [place] Suicide Severity Rating Scale (Screener/Recent Self-Report) Question [...] 09/20/2026 9:00 AM EDT Office Visit [facility] [address] [place] [address] Bernice Jacome [address] [facility] [place] [address] [email or web address] [...] documented as of this encounter Care Teams Flour Blender Helper Relationship Specialty Start Date End Date Dayton Gould PA [address] [place] [address] PCP - General 10/05/20 documented as of this encounter Additional Source Comments The information contained in this document represents components of the legal health record. It is not the complete legal health record.[facility]
--- OUTSIDE RECORDS SUMMARY | 2025-05-26 04:32 | XMS_ITS | Encounter Summary ---
Author Organization [facility] Address [address] [facility] [address] [place] [phone] Phone Care Team Providers Care Wrapper Rewinder Name Role Phone Dayton Gould Primary Care Provider + Encounter Details Date Type Department Care Team (Late st Contact Info) Description 02/20/2025 Procedure Pass [facility], Ct Scan - [facility] [address] [place] [address] Social History Tobacco Use Types Packs/Day Years [...] EDT Office Visit [facility] [address] [place] [address] [place] [address] Bernice Jacome [address] [place] [address], [address] [place] [address] [email or web address] documented as of this encounter Visit Diagnoses Not on filedocumented in this encounter Additional Health Concerns Infection Onset Date Last Indicated Resolved Time CoV-Risk 03/09/2025 03/09/2025 03/20/2025 1:21 AM EDT documented as of this encounter Care Teams Wrapper Rewinder Relationship Specialty Start Date End Date Dayton Gould PA [address] [place] [address] PCP - General 10/05/20 documented as of this encounter Additional Source Comments The information contained in this document represents components of the legal health record. It is not the complete legal health record.[facility]
--- OUTSIDE RECORDS SUMMARY | 2025-05-26 04:32 | XMS_ITS | Clinical Summary ---
Author Organization [facility] Address [address] [facility] [address] [place] [address] Phone Care Team Providers Care Buyers' Agent Name Role Phone Dayton Gould Primary Care [...] increase D5 NS infusion. Continue to monitor [id number] blood sugars with goals of eventually initiating [...] related pancreatitis and the last admitted to [facility] in September 2020 when triglyceride levels were greater than 4000 after stopping medication Was recently admitted to [facility] for recurrent pancreatitis. Was treated supportively and discharged home. He presented back to [facility] with recurrent abdominal pain, bloating, [...] low-fat diet today Regular GI is in [place] Dr. Bright Follow over the day and [...] 04/03/2025 4:11 AM EDT Emergency [facility] [address] [place] [address] Discharge Disposition: Home or Self Care 04/02/[address] [address] 03/10/[address] [address] 03/09/2025 9:25 PM EDT - 03/10/2025 3:17 AM EDT Emergency [facility] [address] [place] [address] Breanne Locke MD Discharge Disposition: Home or Self Care from [...] Description 09/20/2026 9:00 AM EDT Office Visit [facility] [address] [place] [address] Bernice Jacome [address] [facility], [address] [place] [address] [email or web address] Health Maintenance Due Date Last Done Comments DEPRESSION SCREENING 1992 SMOKING Hx and SMOKELESS TOBACCO SCREENING 1993 HEPATITIS C SCREENING 1998 HIV ONE-TIME SCREENING (18-65 YEARS) 1998 Adult Td,Tdap Booster 10/27/2024 10/27/2014 BLOOD PRESSURE 01/05/2025 07/08/2024 INFLUENZA VACCINE (#1) 2025 05/16/2019, 2016 COVID-19 VACCINE (2 - season) 2025 11/01/2020 COLOGUARD 2025 COLONOSCOPY 2025 [...] AND DIFFERENTIAL STAT 03/09/2025 6:44 PM EDT LIPID PANEL STAT 02/29/2024 5:05 [...] 11:09 PM EDT) Only the most recent of2 resultswithin the time period is included. ALKALINE PHOSPHATASE 108 39 - 117 U/L [facility] TOTAL BILIRUBIN <0.2 0.0 - 1.2 mg/dL [facility] DIRECT BILIRUBIN 0.1 0.0 - 0.2 mg/dL [facility] Bilirubin (Indirect) NOT CALCULATED 0 - 1.5 mg/dL [facility] AST 14 0 - 37 U/L [facility] ALT 12 0 - 40 U/L [facility] TOTAL PROTEIN 7.0 6.5 - 8.0 g/dL [facility] ALBUMIN 4.0 3.9 - 4.8 g/dL [facility] GLOBULIN 3.0 1 - 4.8 g/dL [facility] A/G Ratio 1.33 1.00 - 4.80 RATIO [facility] Blood 04/02/2025 11:0 9 PM EDT 04/02/2025 11:11 PM EDT us Henna Morales PA-C LAB BLOOD BKR ORDERABLES Fi nal Result [facility] [address] [place] [address] * (ABNORMAL) CBC and differential (04/02/2025 11:09 PM EDT) Only the most recent of2 resultswithin the time period is included. WBC 8.50 4.00 - 11.00 K/uL [facility] RBC 4.83 4.50 - 5.90 M/uL [facility] HGB 12.9(L) 13.5 - 17.5 g/dL [facility] HCT 37.4(L) 41.0 - 53.0 % [facility] PLT 363 150 - 450 K/uL [facility] MCV 77.4(L) 80.0 - 100.0 fL [facility] MCH 26.7(L) 27.0 - 31.0 pg [facility] MCHC 34.5 32.0 - 36.0 g/dL [facility] RDW 12.6 11.5 - 14.5 % [facility] MPV 8.9 8.4 - 12.0 fL [facility] NRBC 0.00 0.00 /100 WBCs [facility] ABSOLUTE NRBC 0.00 0.00 K/uL [facility] DIFF METHOD Auto [facility] NEUTS 37.4(L) 48.0 - 76.0 % [facility] LYMPHS 47.4(H) 18.0 - 41.0 % [facility] MONOS 8.1 4.0 - 11.0 % [facility] EOS 6.2(H) 0.0 - 5.0 % [facility] BASOS 0.7 0.0 - 1.5 % [facility] Granulocytes, immature (%) 0.2 0.0 - 0.9 % [facility] ABSOLUTE NEUTS 3.17 1.92 - 7.60 K/uL [facility] ABSOLUTE LYMPHS 4.03 0.72 - 4.10 K/uL [facility] ABSOLUTE MONOS 0.69 0.16 - 1.10 K/uL [facility] ABSOLUTE EOS 0.53(H) 0.00 - 0.50 K/uL [facility] ABSOLUTE BASOS 0.06 0.00 - 0.15 K/uL [facility] Granulocytes, immature 0.02 0.00 - 0.09 K/uL [facility] Blood 04/02/2025 11:0 9 PM EDT 04/02/2025 11:11 PM EDT [facility]-C LAB BLOOD BKR ORDERABLES Fi nal Result [address] [address] * Magnesium (04/02/2025 11:09 PM EDT) MAGNESIUM 2.1 1.6 - 2.6 mg/dL [facility] Blood 04/02/2025 11:0 9 PM EDT 04/02/2025 11:11 PM EDT [facility] PA-C LAB BLOOD BKR ORDERABLES Fi nal Result [address] [address] * Lipase (04/02/2025 11:09 PM EDT) Only the most recent of2 resultswithin the time period is included. LIPASE 58 16 - 63 U/L [facility] Blood 04/02/2025 11:0 9 PM EDT 04/02/2025 11:11 PM EDT Henna Andrew JOHN LAB BLOOD BKR ORDERABLES Fi nal Result Performing Organization Address [facility] Co de Phone Number [address] [address] * (ABNORMAL) Basic metabolic panel (04/02/2025 11:09 PM EDT) Only the most recent of2 resultswithin the time period is included. [facility] SODIUM 136 133 - 146 mmol/L [facility] CHLORIDE 104 96 - 108 mmol/L [facility] POTASSIUM 3.8 3.3 - 5.1 mmol/L [facility] Comment:Specimen slightly he molyzed, result may be falsely elevated. CO2 21 21 - 35 mmol/L [facility] BUN 8 6 - 19 mg/dL [facility] CREATININE 0.80 0.5 - 1.5 mg/dL [facility] GLUCOSE 120(H) 70 - 99 mg/dL [facility] CALCIUM 9.4 8.4 - 10.3 mg/dL [facility] EGFR 111 >59 mL/min/1.7 3m2 [facility] Comment:Estimated glomerular filtration rate calculated using the CKD-EPI refit equation. ANION GAP 15 10 - 20 mmol/L [facility] Blood 04/02/2025 11:0 9 PM EDT 04/02/2025 11:11 PM EDT Henna Andrew JOHN LAB BLOOD BKR ORDERABLES Fi nal Result Performing Organization Address City/[facility]/ZIP Co de Phone Number [address] [address] * CT ABDOMEN/PELVIS WITH CONTRAST (03/10/2025 12:31 [...] EDT) Heterophile Ab NON-REACTI VE NON-REACTI VE [facility] Blood (Blood) 03/09/2025 10: 35 PM EDT 03/09/2025 10:49 PM EDT Breanne Locke MD LAB BLOOD BKR ORDERABLES Fin al Result [facility] [address] [place] [address] * COVID Pandemic Respiratory Viral Order (PRO) (03/09/2025 10:23 PM EDT) Test Ordered Rapid COVID has been ordered [facility] Specimen Source/Description NASAL [facility] SARS-CoV 2 (COVID-19) PCR Not Detected Not Detected [facility] Comment: SARS-CoV-2 not detected Negative results do not preclude SARS-CoV-2 infection and should not be used as the sole basis for patient management decisions. Negative results must be combined with clinical observations, patient history, and epidemiological information. Other (Nasopharyngeal swab) 03/09/2025 10:23 PM EDT 03/09/2025 11:13 PM EDT us Breanne Locke MD LAB GENERAL ORDERABLES Final Result Performing Organization Address [facility] de Phone Number [address] [address] * Urinalysis w/reflex Urine Culture (03/09/2025 9:32 PM EDT) COLOR Yellow Yellow [facility] CLARITY Clear [facility] GLUCOSE Negative Negative [facility] BILI Negative Negative [facility] KETONES Negative Negative [facility] SPECIFIC GRAVITY >1.030 1.005 - 1.030 [facility] BLOOD Negative Negative [facility] PH 6.0 5.0 - 8.0 [facility] Protein-UA Negative Negative [facility] NITRITE Negative Negative [facility] Leukocyte esterase, ur Negative Negative [facility] Urine (Urine) 03/09/2025 9:3 2 PM EDT 03/09/2025 9:54 PM EDT us Carlos Eduardo Cummins MD LAB URINE ORDERABLES Fin al Result Performing Organization Address [facility] Co de Phone Number [address] [address] * TSH with reflex (03/09/2025 6:44 PM EDT) TSH 0.70 0.27 - 4.20 uIU/mL [facility] 03/09/2025 6:44 PM EDT 03/09/2025 7:00 PM EDT us Carlos Eduardo Cummins MD LAB BLOOD BKR ORDERABLES Final Result Performing Organization Address [facility] Co de Phone Number [address] [address] * C-Reactive Protein (03/09/2025 6:44 PM EDT) C REACTIVE PROTEIN <3.0 0.0 - 4.0 mg/L [facility] 03/09/2025 6:44 PM EDT 03/09/2025 7:00 PM EDT us Carlos Eduardo Cummins MD LAB BLOOD BKR ORDERABLES Final Result Performing Organization Address [facility] Co de Phone Number [address] [address] * (ABNORMAL) Lipid panel (02/29/2024 5:05 PM EDT) HDL 21 mg/dL [facility] Comment: Interpretation <40 mg/dL: Low HDL cholesterol (major risk factor for CHD) Greater than or equal to 60 mg/dL: High HDL cholesterol ( negative risk factor for CHD) HDL - cholesterol is affected by a number of factors, e.g. smoking, excerise, hormones, sex and age. CHOLESTEROL 764(H) 0 - 240 mg/dL [facility] TRIGLYCERIDES 3,858(H) 30 - 160 mg/dL [facility] LDL NOT CALCULATED 50 - 129 mg/dL [facility] Comment: Unable to calculate due to elevated TRIG of greater than 400. A measured LDL will be performed. CARDIAC RISK RATIO 36.4(H) 3.4 - 5.0 [facility] Blood 02/29/2024 5:05 PM EDT 02/29/2024 5:07 PM EDT us Alexander Foster PA-C LAB BLOOD BKR ORDERABLES Marie l Result [facility] [address] [place], [place] [id number] from Last 3 Months or Most Recently Relevant to Health Maintenance Insurance [facility] [address] [id number] [facility] Advance Directives For more information, please contact: [phone] (9AM - 5PM [facility], Sunday-Sunday) Documents on File Type Date Recorded Patient Car Rental Agent Expl lor Shirley Proxy 03/11/2024 4:11 PM * Full Code [...] presumed on basis of a Care Teams Buyers' Agent Relationship Specialty Start Date End Date Dayton Gould PA [address] [place] [address] PCP - General 10/05/20 Additional Source Comments The information contained in this document represents components of the legal health record. It is not the complete legal health record.[facility]
--- OUTSIDE RECORDS SUMMARY | 2025-05-26 04:32 | XMS_ITS | Encounter Summary ---
Author Organization [facility] Address [address] [facility] [address] [place] [address] Phone Care Team Providers Care Supervisor Grower Name Role Phone Dayton Gould Primary Care Provider + Encounter Details Date Type Department Care Team (Late st Contact Info) Description 06/16/2023 Procedure Pass [facility], Ct Scan - [address] [address] Social History Tobacco Use Types Packs/Day Years [...] 06/16/2023 6:47 PM Leandro Mukherjee RN * [place] Suicide Severity Rating Scale (Screener/Recent Self-Report) Question [...] 09/20/2026 9:00 AM EDT Office Visit [facility] [address] [place] [address] Bernice Jacome [address] [place] [address], [address] [place] [address] [email or web address] documented as of this encounter Visit [...] documented as of this encounter Care Teams Supervisor Grower Relationship Specialty Start Date End Date Dayton Gould PA [address] [place] [address] PCP - General 10/05/20 documented as of this encounter Additional Source Comments The information contained in this document represents components of the legal health record. It is not the complete legal health record.[facility]
--- OUTSIDE RECORDS SUMMARY | 2025-05-26 04:32 | XMS_ITS | Encounter Summary ---
Author Organization [facility] Address [address] [facility] [address] [place] [address] Phone Care Team Providers Care Waiter/Waitress Formal Name Role Phone Dayton Gould Primary Care Provider + Encounter Details Date Type Department Care Team (Late st Contact Info) Description 07/29/2022 Procedure Pass [facility], Ct Scan - [address] [address] Social History Tobacco Use Types Packs/Day Years [...] 07/29/2022 3:45 PM Leola Flynn RN * [place] Suicide Severity Rating Scale (Screener/Recent Self-Report) Question [...] Description 09/20/2026 9:00 AM EDT Office Visit [facility] [address] [place] [address] Bernice Jacome [address] [facility], [address] [place] [address] [email or web address] documented as of this encounter Visit [...] documented as of this encounter Care Teams Waiter/Waitress Formal Relationship Specialty Start Date End Date Dayton Gould PA [address] [place] [address] PCP - General 10/05/20 documented as of this encounter Additional Source Comments The information contained in this document represents components of the legal health record. It is not the complete legal health record.[facility]
--- OUTSIDE RECORDS SUMMARY | 2025-05-26 04:32 | XMS_ITS | Clinical Summary ---
Author Organization [employer] Address [address] [facility] 7[address] [place] [address] Care Team Providers Care Commercial Insulator Name Role Phone Unavailable Primary Care Provider [...] thrombosis) 10/05/2020 Hypertriglyceridemia 10/05/[address] ([facility]) 10/05/2020 Microcytic anemia 10/05/2020 Presence of IVC filter 10/05/2020 Encounters Date Type Department Care Team Description 05/14/2025 2:30 PM EST Office Visit [facility] [address] [place] [address] Collin Hood Dental caries (Primary Dx) 05/14/2025 Travel 05/06/2025 2:30 PM EST Office Visit [facility] [address] [place] [address] Collin Hood Dental calculus (Primary Dx) 04/06/2025 8:00 AM EDT Office Visit [facility] [address] [place] [address] Austin Simmons Dental caries (Primary Dx); Periodontal disease 03/26/2025 8:00 AM EDT Office Visit [facility] [address] [place] [address] Alijoselito, Avila 03/19/2025 8:00 AM EDT Office Visit [facility] [address] [place] [address] Aliji, Avila 03/19/2025 Travel 03/13/2025 3:30 PM EDT Office Visit [facility] [address] [facility] [place] [address] Jovon Doss 03/11/2025 3:00 PM EDT Office Visit [facility] [address] [place] [address] Alijoselito Avila Dental caries (Primary Dx); Pain, dental from [...] Sign Reading Time Taken Comments Blood Pressure 128/82 05/14/2025 2:52 PM EST Pulse 70 04/06/2025 8:37 AM EDT Temperature [...] 03/26/2025, 03/13/2025, Additional history exists Tobacco Screening 05/14/2026 05/14/2025 Dental X-Ray: Full Mouth 04/07/2028 04/06/2025, 08/31 [...] PRESENTATION, DETAILED AND EXTENSIVE TREATMENT PLANNING Routine 05/14/2025 2:30 PM EST Dental caries 2 DB RESIN-BASED COMPOSITE - 2 SURF, POSTERIOR Routine 05/14/2025 2:30 PM EST Dental caries CASE PRESENTATION, DETAILED AND EXTENSIVE TREATMENT PLANNING [...] from Last 3 Months Insurance [place] [place] [id number] [place] [id number] [address] [id number] [place] [id number] [place] [id number]
--- OUTSIDE RECORDS SUMMARY | 2025-05-26 04:32 | XMS_ITS | Encounter Summary ---
Author Organization [facility] Address [address] [place] [address] Phone Care Team Providers Care Ophthalmic Technologist Name Role Phone Dayton Gould Primary Care Provider + Encounter Details Date Type Department Care Team (Late st Contact Info) Description 06/09/2024 Procedure Pass [facility], Ct Scan - [facility] [address] [place] [address] Social History Tobacco Use Types Packs/Day Years [...] 09/20/2026 9:00 AM EDT Office Visit [facility] [address] [place] [address] Bernice Jacome [address] [place] [address], [address] [place] [address] [email or web address] documented as of this encounter Visit Diagnoses Not on filedocumented in this encounter Additional Health Concerns Infection Onset Date Last Indicated Resolved Time CoV-Risk Comment:Per note documentation 08/04/2024 08/04/2024 9:21 AM EST CDiff-Risk 08/04/2024 08/05/2024 08/05/2024 2:09 AM EST CoV-Risk 03/09/2025 03/09/2025 03/20/2025 1:21 AM EDT documented as of this encounter Care Teams Ophthalmic Technologist Relationship Specialty Start Date End Date Dayton Gould PA [address] [place] [address] PCP - General 10/05/20 documented as of this encounter Additional Source Comments The information contained in this document represents components of the legal health record. It is not the complete legal health record.[facility]
--- OUTSIDE RECORDS SUMMARY | 2025-05-26 04:32 | XMS_ITS | Encounter Summary ---
Author Organization [facility] Address [address] [place] [address] [place] [address] Phone Care Team Providers Care Dough Panner Name Role Phone Dayton Gould Primary Care Provider + Encounter Details Date Type Department Care Team (Late st Contact Info) Description 09/12/2023 Procedure Pass [facility] [address] [place] [address] Social History Tobacco Use Types Packs/Day Years [...] 09/20/2026 9:00 AM EDT Office Visit [facility] [address] [place] [address] [place] [address] Bernice Jacome [address], [address] [place] [address] [email or web address] documented as [...] documented as of this encounter Care Teams Dough Panner Relationship Specialty Start Date End Date Dayton Gould PA [address] [place] [address] PCP - General 10/05/20 documented as of this encounter Additional Source Comments The information contained in this document represents components of the legal health record. It is not the complete legal health record.[facility]
--- OUTSIDE RECORDS SUMMARY | 2025-05-26 04:32 | XMS_ITS | Encounter Summary ---
Author Organization [facility] Address [address] [facility] [address] [place] [address] Phone Care Team Providers Care Sheet Metal Shop Helper Name Role Phone Dayton Gould Primary Care Provider + Encounter Details Date Type Department Care Team (Late st Contact Info) Description 08/24/2024 Procedure Pass [facility], Ct Scan - [facility] [address] [place] [address] Social History Tobacco Use Types Packs/Day Years [...] EDT Office Visit [facility] [place] [facility] [address] [place] [address] [place] [address] Bernice Jacome [address] [place] [address], [address] [place] [address] [email or web address] documented as of this encounter Visit Diagnoses Not on filedocumented in this encounter Additional Health Concerns Infection Onset Date Last Indicated Resolved Time CoV-Risk 03/09/2025 03/09/2025 03/20/2025 1:21 AM EDT documented as of this encounter Care Teams Sheet Metal Shop Helper Relationship Specialty Start Date End Date Dayton Gould PA [address] [place] [address] PCP - General 10/05/20 documented as of this encounter Additional Source Comments The information contained in this document represents components of the legal health record. It is not the complete legal health record.[facility]
--- OUTSIDE RECORDS SUMMARY | 2025-05-26 04:32 | XMS_ITS | Encounter Summary ---
Author Organization [facility] Address [address] [facility] [address] [place] [address] Phone Care Team Providers Care Functional Support Analyst Name Role Phone Dayton Gould Primary Care Provider + Encounter Details Date Type Department Care Team (Late st Contact Info) Description 03/10/2025 Procedure Pass [facility], Ct Scan - [facility] [address] [place] [address] Social History Tobacco Use Types Packs/Day Years [...] EDT Office Visit [facility] [place] [facility] [address] [place] [address] [place] [address] Bernice Jacome [address] [place] [address], [address] [place] [address] [email or web address] documented as of this encounter Visit Diagnoses Not on filedocumented in this encounter Additional Health Concerns Infection Onset Date Last Indicated Resolved Time CoV-Risk 03/09/2025 03/09/2025 03/20/2025 1:21 AM EDT documented as of this encounter Care Teams Functional Support Analyst Relationship Specialty Start Date End Date Dayton Gould PA [address] [place] [address] PCP - General 10/05/20 documented as of this encounter Additional Source Comments The information contained in this document represents components of the legal health record. It is not the complete legal health record.[facility]
--- OUTSIDE RECORDS SUMMARY | 2025-05-26 04:32 | XMS_ITS | Encounter Summary ---
Author Organization [facility] Address [address] [place] [address] Phone Care Team Providers Care Mapping Editor Name Role Phone Dayton Gould Primary Care Provider + Encounter Details Date Type Department Care Team (Late st Contact Info) Description 06/07/2024 Procedure Pass [facility], Ct Scan - [facility] [address] [place] [address] Social History Tobacco Use Types Packs/Day Years [...] 06/08/2024 3:07 AM Tino Cooper RN * [place] Suicide Severity Rating Scale (Screener/Recent Self-Report) Question [...] 9:00 AM EDT Office Visit [facility] [address] [place] [address] Bernice Jacome [address] [place] [address], [address] [place] [address] [email or web address] documented as [...] documented as of this encounter Care Teams Mapping Editor Relationship Specialty Start Date End Date Dayton Gould PA [address] [place] [address] PCP - General 10/05/20 documented as of this encounter Additional Source Comments The information contained in this document represents components of the legal health record. It is not the complete legal health record.[facility]
--- OUTSIDE RECORDS SUMMARY | 2025-05-26 04:32 | XMS_ITS | Encounter Summary ---
Author Organization [facility] Address [address] [facility] [address] [place] [address] Phone Care Team Providers Care Administrative Services Manager Name Role Phone Dayton Gould Primary Care Provider + Encounter Details Date Type Department Care Team (Late st Contact Info) Description 12/15/2021 Procedure Pass [facility]oscopy Admitting Dept Virtual Department [address] [place] [address] Social History Tobacco Use Types Packs/Day Years [...] EDT Office Visit [facility] [address] [place] [address] Bernice Jacome [address] [place] [address], [address] [place] [address] [email or web address] documented as of this encounter [...] documented as of this encounter Care Teams Administrative Services Manager Relationship Specialty Start Date End Date Dayton Gould PA [address] [place] [address] PCP - General 10/05/20 documented as of this encounter Additional Source Comments The information contained in this document represents components of the legal health record. It is not the complete legal health record.[facility]
--- OUTSIDE RECORDS SUMMARY | 2025-05-26 04:32 | XMS_ITS | Encounter Summary ---
Author Organization [facility] Address [address] [place] [phone] Phone Care Team Providers Care Kitchen Help Handyman Name Role Phone Dayton Gould Primary Care Provider + Encounter Details Date Type Department Care Team (Late st Contact Info) Description 12/14/2021 Procedure Pass [facility], [address] [address] Social History Tobacco Use Types Packs/Day Years [...] Description 09/20/2026 9:00 AM EDT Office Visit [address] [address] Bernice Jacome [address] [place] [address], [address] [place] [address] [email or web address] [...] documented as of this encounter Care Teams Kitchen Help Handyman Relationship Specialty Start Date End Date Dayton Gould PA [address] [place] [address] PCP - General 10/05/20 documented as of this encounter Additional Source Comments The information contained in this document represents components of the legal health record. It is not the complete legal health record.[facility]
--- OUTSIDE RECORDS SUMMARY | 2025-05-26 04:32 | XMS_ITS | Encounter Summary ---
Author Organization [facility] Address [address] [facility] [address] [place] [address] Phone Care Team Providers Care Powertrain Engineer Name Role Phone Dayton Gould Primary Care Provider + Encounter Details Date Type Department Care Team (Late st Contact Info) Description 04/02/2025 Procedure Pass [facility], Ct Scan - [facility] [address] [place] [address] Social History Tobacco Use Types Packs/Day Years [...] 5:17 PM EDT Fabby Lynne RN * Dewitt Suicide Severity Rating Scale (Screener/Recent Self-Report) Question [...] EDT Office Visit [facility] [address] [place] [address] [place] [address] Bernice Jacome [address] [place] [address], [address] [place] [address] [email or web address] documented as of this encounter Visit Diagnoses Not on filedocumented in this encounter Care Teams Powertrain Engineer Relationship Specialty Start Date End Date Dayton Gould PA [address] [place] [address] PCP - General 10/05/20 documented as of this encounter Additional Source Comments The information contained in this document represents components of the legal health record. It is not the complete legal health record.[facility]
[2025-05-26] MEDS: Lactated Ringers 1,000 ML 999 ML IV (04:44)
--- NOTE | 2025-05-26 04:50 | PC.NURSE ---
Pt ambulatory to ED 14 from triage with reports of diffuse abd pain x 1 day. Nausea no vomiting, and bulk behind colostomy. Pt states this happens sometimes when he eats certain foods. Hx SBO. A&Ox3 skin pwd respirations even unlabored. IV access obtained, pt medicated per MAR. LR hung and infusing without difficulty. Awaiting CT, aware of plan of care.
--- NOTE | 2025-05-26 05:17 | PC.NURSE ---
Report given to Farzaneh LUJAN pt exits my care at this time.
[2025-05-26 06:14] VITALS: BP 140/86; PULSE 65; RESP 16; TEMP 36.6; O2SAT 98
[2025-05-26] MEDS: iohexoL 350 MG/ML 100 ML INFUS..BTL IV (06:28)
[2025-05-26 08:26] VITALS: RESP 16
[2025-05-26 08:37] VITALS: BP 133/87; PULSE 64; RESP 14; TEMP 36.7; O2SAT 97
[2025-05-26 10:22] VITALS: BP 133/87; PULSE 64; RESP 14; TEMP 36.7; O2SAT 97
== END 2025-05-26 10:23 | disposition home or self-care (01) ==
PROVIDERS: Emergency Medicine; Emergency Provider Emergency Medicine; PCP Physician Assistant
DX: R10.84 Generalized abdominal pain (principal); K51.90 Ulcerative colitis, unspecified, without complications
CPT/HCPCS: 36415; 74177; 80053; 81003; 83690; 85025; 96361; 96365; 96375; 96376; 99284; 99285; J0131; J2270; J2405; J7120; Q9967

== ENCOUNTER → 2025-05-26 06:25 | Outpatient (BNV) | payer OTHER, SELFPAY | PROVIDERS: Emergency Provider Emergency Medicine; PCP Physician Assistant; Visit Provider Radiology Diagnostic Radiology | DX: K85.90 Acute pancreatitis without necrosis or infection, unspecified (principal); Z93.2 Ileostomy status | CPT/HCPCS: 74177 ==

== ENCOUNTER 2025-06-08 09:15 | Outpatient (REF) | payer OTHER, SELFPAY ==
[2025-06-08 09:45] LABS: MANUAL DIFF FLAG NO
[2025-06-08 10:03] LABS: Hematocrit 40.0 % (42.0-52.0); Hemoglobin 13.5 g/dl (14.0-18.0); Imm Gran Abs Auto 0.03 X10*3/uL (0.00-0.03); Imm Gran Pct Auto 0.3 % (0.0-0.4); Lymphocytes Absolute Auto 3.6 X10*3/uL (1.2-4.9); Mean Corpuscular HGB Conc 33.8 g/dl (31.0-36.0); Mean Corpuscular Hemoglobin 25.7 pg (27.0-33.0); Mean Corpuscular Volume 76.0 fL (80.0-98.0); NRBC Abs Auto 0.000 X10*3/uL (0.0-0.012); NRBC Pct Auto 0.0 /100WBC (0.0-0.2); Platelet Count 340 X10*3/uL (160-400); Red Blood Count 5.26 X10*6/uL (4.60-5.80); White Blood Count 9.0 X10*3/uL (4.8-10.8)
[2025-06-08 10:25] LABS: Magnesium 1.9 mg/dL (1.6-2.6)
[2025-06-08 10:39] LABS: Alanine Aminotransferase 31 U/L (0-40); Albumin Level 4.4 g/dL (3.5-5.0); Alkaline Phosphatase 87 U/L (39-117); Anion Gap 14 (12-20); Aspartate Amino Transferase 41 U/L (5-37); Blood Urea Nitrogen 10 mg/dL (9-16); Calcium 9.2 mg/dL (8.4-10.2); Carbon Dioxide 19 mmol/L (22-29); Chloride 107 mmol/L (96-108); Cholesterol 454 mg/dL (<200); Estimated Glomerular Filt Rate > 60; HDL Cholesterol 39 mg/dL (>40); Potassium 3.8 mmol/L (3.3-5.1); Sodium 136 mmol/L (135-145); Total Protein 7.7 g/dL (6.5-8.0); Triglycerides 1382 mg/dL (<150)
[2025-06-08 11:00] LABS: Folate 9.3 ng/mL (> or = 4.0); Vitamin B12 178 pg/mL (200-900)
[2025-06-08 14:18] LABS: Reflex LDLD? Yes
== END 2025-06-08 09:16 | disposition home or self-care (01) ==
LOC: HO.LAB 09:15
PROVIDERS: Absent Provider Internal Medicine; PCP Physician Assistant; Referring Provider Student in an Organized Health Care Education/Training Program; Visit Provider Physician Assistant
DX: Z00.00 Encounter for general adult medical examination without abnormal findings (principal); E53.8 Deficiency of other specified B group vitamins; E78.2 Mixed hyperlipidemia; D64.9 Anemia, unspecified; R53.82 Chronic fatigue, unspecified; R19.5 Other fecal abnormalities; R74.8 Abnormal levels of other serum enzymes
CPT/HCPCS: 36415; 80053; 80061; 82607; 82746; 83721; 83735; 83921; 84100; 84252; 84402; 84403; 84425; 84446; 84590; 84630; 85025

== ENCOUNTER 2025-06-24 14:15 | Outpatient (AMB) | payer OTHER, SELFPAY ==
--- NOTE | 2025-06-24 14:17 | A.OFFPC_ITS ---
Vital Signs 06/24/25 14:18 Height 5 ft 9.29 in Weight 208 lb BMI 30.5 BP 110/62 Blood Pressure Location Lt brachial Position Sitting Respiration 18 Pulse 85 Pulse Source Pulse Oximeter Temp Source Temporal Artery Scan Pulse Oximetry (%) 97 Oxygen Delivery Method Room Air Intake Visit Reasons: F/U visit [employer] Required: No Accompanied by: Self / Same As Patient Allergies cetirizine (From [facility]) Adverse Reaction (Mild, Verified 06/24/25 14:23) Nightmare lactose Adverse Reaction (Unknown, Verified 06/24/25 14:23) Diarrhea Medication List - Last Reconciled 06/24/25 by Misty Byrnes MD colostomy-[email or web address].set,nonsteril (Premier Colostomy-Ileostomy) As directed gemfibrozil 600 mg PO BID 30 days hydrocodone-acetaminophen 5-325 mg 1 tab PO Q6H PRN ibuprofen 800 mg PO Q8H PRN 10 days ketoconazole 2% 1 appl topical DAILY PRN lorazepam 1 mg PO BEDTIME PRN mecobalamin (vitamin B12) 1,000 mcg PO DAILY 90 days metoprolol succinate ER 25 mg PO DAILY niacin ER 500 mg (2 x 250 mg) PO DAILY 90 days omeprazole 40 mg PO DAILY PRN ondansetron 4 mg PO Q8H PRN ostomy adhesive (Stomahesive Paste) As directed ostomy supplies (Skin Prep Wipes) As directed prednisone 40 mg PO DAILY PRN Tobacco use date assessed: 06/24/25 Dental Screening Dental Screen Date: 06/24/25 Did you have a dental visit in the last 12 months?: Yes Did you have a dental problem in the last 6 months where you did not have access to dental care?: No Was dental information given to patient?: Patient has dentist HPI HPI Comments History of Present Illness Details The patient is a 45 year old male with PMH of hypertriglecerydemia, C rohn/UC, presenting for follow-up after a recent hospitalization for pancreatitis, as well as for ongoing stoma problems and new onset right wrist pain. The patient was recently admitted to [facility] for recurrent pancreatitis 2/2 hypertriglecerdemia from Sunday the to the . He sought care promptly at the onset of symptoms this time, unlike a previous severe episode which led to complications including fluid in his lungs. He was discharged with some residual pain and instructions to maintain his diet. He missed a prior appointment with endocrinology and now he is scheduled for another appointment in July. The patient has a history of Crohn's disease and ulcerative colitis diagnosed at age 13. He underwent a total colectomy for ulcerative colitis, which was complicated, and was subsequently diagnosed with Crohn's disease. He has chronic issues with his ileostomy, which he feels is too narrow, causing food blockages, particularly with vegetables, which complicates his ability to follow a low-fat diet for pancreatitis. He was seen by surgery who suggested no surgical intervention is needed at this time.However, the patietn continues to have issu es with stoma. The patient will seek another opinion for stoma malfunction. The patient also reports new right wrist pain for over two months, which started after he may have hit his arm. The pain is worsening, described as a pulsing sensation at night that radiates up his arm, and is exacerbated by pressure or certain wrist movements. His other medical history includes severe allergies with nasal polyps managed with as-needed prednisone, history of blood clots requiring a temporary IVC filter in 2000, hypercholesterolemia, and chronic low back pain. He is taking vitamin B12. [facility] Medical History HLD (hyperlipidemia) Overweight (BMI 25.0-29.9) Vitamin D deficiency Impaired fasting glucose Mixed hyperlipidemia Vitamin B12 deficiency B12 deficiency Trapezius muscle strain Ileostomy dysfunction CASSIA (generalized anxiety disorder) Sinusitis Presence of ileostomy Annual physical exam Presence of IVC filter Transaminitis Hypertriglyceridemia Inflammatory bowel diseases (IBD) Ulcerative colitis Sleep disorder breathing Infection of lip Lumbar disc herniation with radiculopathy Right knee injury Injury of lumbar spine Infected nasal abrasion Lumbar radiculopathy, chronic Constipation by delayed colonic transit Allergic rhinitis Obesity Colitis Zinc deficiency Chronic nasal congestion Nasal sinus congestion Obese Low libido GERD without esophagitis H/O deep venous thrombosis H/O acute pancreatitis Hypertriglyceridemia Surgical History History of ileostomy History of colectomy History of ileostomy History of resection of rectum Family History Father CVD (cardiovascular disease) Mother Hypertension Diabetes Maternal Grandmother Liver cancer Maternal Grandfather CVD (cardiovascular disease) Family/Other Diabetes Social History Household Members: Other Household Members Other:: girlfriend and children Housing: House Do you presently have visiting nurse or other home services: No Alcohol intake: never Patient Tobacco Use Status: Former Tobacco user e-Cigarette/Vaping Use: Never Used Second Hand Smoke Exposure: Yes Substance Use Type: Marijuana service: No Current occupational status: employed Current occupation: [employer] Cognitive needs: No Hearing needs: No Vision needs: No Questionnaire Thrive Questionnaire Date Thrive assessed: 06/24/25 I am a: Patient What is your living situation today?: I have a steady place to live Within the past 12 months, did the food you bought not last and you didn't have the money to get more?: Never true Within the past 12 months, did you worry whether your food would run out before you got money to buy more?: Never true Do you have trouble paying for medicines?: No Do you have trouble getting transportation to medical appointments?: No Do you have trouble paying your heating and electricity bill?: No Do you have trouble taking care of your child, family member or friend?: No Do you have trouble with day-to-day activities such as bathing, preparing meals, shopping, managing finances, etc.?: No Are you currently unemployed and looking for a job?: No Are you interested in more education?: No Currently or been in a relationship where the following occur: No concerns reported THRIVE Score: 0 CASSIA-7 AMB Questionnaire CASSIA-7 Date CASSIA - 7 assessed: 03/10/25 Source: Developed by Drs. Augie Acosta, Radha Echavarria, Eros Robbins and colleagues, with an educational juli from [employer]. Review of Systems Const Details: As per HPI. Physical exam (Primary Care) Vital Signs: Last Vital Signs Pulse 85 06/24/25 14:18 Resp 18 06/24/25 14:18 BP 110/62 06/24/25 14:18 Pulse Ox 97 06/24/25 14:18 Oxygen Delivery Method Room Air 06/24/25 14:18 BMI result Body Mass Index 30.5 Tobacco/Smoking Status: Tobacco use Status Tobacco use date assessed 06/24/25 06/24/25 14:25 Patient Tobacco Use Status Former Tobacco user 06/24/25 14:25 e-Cigarette/Vaping Use Never Used 06/24/25 14:25 Thrive Assessment: Date of Thrive Assessment Date Thrive assessed 06/24/25 06/24/25 14:25 Currently or been in a relationship where the following occur: No concerns reported Const Other: Pertinent findings are in BOLD GENERAL APPEARANCE NAD, activity normal for age, well developed/ well nourished, no cyanosis, pallor, or diaphoresis. EYES lids/conjunctiva normal. EARS/NOSE/THROAT Mucous membranes moist, nares normal, lips/teeth normal uvula midline without oral pharyngeal erythema, exudate or swelling TMs normal bilaterally. No lymphangitis/lymphedema. HEAD/NECK normocephalic atraumatic, no facial trauma, neck is supple. RESPIRATORY respiratory effort normal, speaks in full sentences, no tripod position, no accessory muscle use. Lungs clear to auscultation without rhonchi, wheezes, rales CARDIAC Regular rate and rhythm, no edema. ABDOMINAL Soft, ND/NT. No evidence of fluid wave. No pulsatile masses on exam, rebound tenderness, Gamino sign or pain over Mcburney's point. MUSCLES/EXTREMITIES No abnormal range of motion, no swelling. SKIN Warm, pink and dry. No rashes, dermatoses, petechiae or lesions. Stoma in place, no redness, no signs of infection/inflammation. Abdominal distention around the stoma due to consitpation. NEUROLOGICAL Speech is clear and appropriate. Normal level of consciousness. Gait and coordination are normal. 5/5 strength in all extremities. PSYCH Normal mood and affect. Judgement/competence is appropriate Coding Level of Care Code Tele New Pt Level 4 (84876) Diagnoses Right wrist pain M25.531 Other acute pancreatitis, unspecified complication status K85.80 Chronicity: acute Pancreatitis type: other Acute pancreatitis complication: unspecified Crohn disease K50.90 Ulcerative colitis with abscess, unspecified location K51.914 Ulcerative colitis location: unspecified ulcerative colitis location Digestive disease complication type: with abscess Time Spent (min) 30 Assessment & Plan Assessment & Plan (1) Right wrist pain: Code(s): M25.531 - Pain in right wrist Category: Medical Plan: Wrist Xray. (2) Pancreatitis: Code(s): K85.90 - Acute pancreatitis without necrosis or infection, unspecified Category: Medical Qualifiers: Chronicity: acute Pancreatitis type: other Acute pancreatitis complication: unspecified Qualified Code(s): K85.80 - Other acute pancreatitis without necrosis or infection Plan: - The patient has an upcoming appointment with endocrinology on July 09 at 10:30 AM, which he is advised to keep. - Dietary management with a focus on a low-fat diet is crucial. - The recommended elimination diet will also help manage pancreatitis triggers. (3) Crohn disease: Code(s): K50.90 - Crohn's disease, unspecified, without complications Category: Medical Plan: - The patient's primary GI issues are complex and require specialist care. - It is critical to establish care with an IBD specialist, as his current GI provider is not a specialist in this area. - Plan includes placing a referral to [facility] with the specific request for a Crohn's disease or IBD specialist. - The patient will continue to seek a second surgical opinion regarding potential stoma stenosis and was advised to attempt to expedite this appointment. - Advised an elimination diet, excluding dairy, red meat, pork, and gluten to identify potential food triggers. - Recommended keeping a food diary to correlate symptoms related to his stoma malfunction with dietary intake. (4) Ulcerative colitis: Code(s): K51.90 - Ulcerative colitis, unspecified, without complications Category: Medical Qualifiers: Ulcerative colitis location: unspecified ulcerative colitis location Digestive disease complication type: with abscess Qualified Code(s): K51.914 - Ulcerative colitis, unspecified with abscess Plan: SAme as under CD. Plan I discussed with the patient his complex medical history, including recurrent pancreatitis, Crohn's disease, and ileostomy issues, which all interact and make management challenging. 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 I informed him I would place a referral to [facility] and instructed him to specifically request a Crohn's or IBD specialist when scheduling. We discussed diet as a primary tool for managing his symptoms. I recommended an elimination diet, advising him to completely remove dairy, gluten, red meat, and pork from his diet for a period to assess for improvement, and to keep a food diary to identify triggers. I explained that his gut is very sensitive and this approach could help identify food allergies or intolerances contributing to his bloating and discomfort. Regarding his right wrist pain, I informed him that I am ordering an X-ray to investigate the cause. We confirmed his upcoming appointments with endocrinology on July 09 and his PCP, Sharan, on July 05, and I advised him to keep both. I conveyed that getting his specialty care and diet in order are the most important next steps to getting his health on the right track. Orders: Orders XR wrist RT 2V Today M25.531 - Pain in right wrist Referrals Gastroenterology Referral K51.914 - Ulcerative colitis, unspecified with abscess
[2025-06-24 14:18] VITALS: BP 110/62; PULSE 85; RESP 18; O2SAT 97; BMI 30.5
--- OUTSIDE RECORDS SUMMARY | 2025-06-24 14:18 | XMS_ITS | Clinical Summary ---
Author Organization [facility] Address [address] [place] [address] Care Team Providers Care Casualty Claim Adjuster Name Role Phone Unavailable Primary Care Provider [...] thrombosis) 10/05/2020 Hypertriglyceridemia 10/05/[address] ([facility]) 10/05/2020 Microcytic anemia 10/05/2020 Presence of IVC filter 10/05/2020 Encounters Date Type Department Care Team Description 05/14/2025 2:30 PM EST Office Visit [facility] [address] [place] [address] Collin Hood Dental caries (Primary Dx) 05/14/2025 Travel 05/06/2025 2:30 PM EST Office Visit [facility] [address] [place] [address] Collin Hood Dental calculus (Primary Dx) 04/06/2025 8:00 AM EDT Office Visit [facility] [address] [place] [address] Austin Simmons Dental caries (Primary Dx); Periodontal disease 03/26/2025 8:00 AM EDT Office Visit [facility] [address] [place] [address] Austin Simmons from Last 3 Months Social History Tobacco [...] Care Team (Late st Contact Info) Description 06/30/2025 11:00 AM EST Office Visit [facility] [address] [place] [address] Mari Whatley Health Maintenance Due Date Last Done Comments [...] Vaccine (3 - season) 2025 11/22/2020, 11/01/2020 Dental Oral Exam 10/06/2025 04/06/2025, 09/20/2017 Dental [...] on patient's age to complete this topic Influenza Vaccine Completed 06/18/2025, , 06/07/2022, Additional history exists HIB Vaccines Aged Out No longer eligi [...] OF TOOTH Routine 03/26/2025 8:00 AM EDT from Last 3 Months Insurance D[facility]AL-[facility] MEDICAID STAND ADULT [place] [id number] [place] [id number] [place] [id number] [place] [id number]
--- OUTSIDE RECORDS SUMMARY | 2025-06-24 14:18 | XMS_ITS | Encounter Summary ---
Author Organization [facility] Address [address] [facility] [address] [place] [address] Phone Care Team Providers Care Senior Electrical Designer Name Role Phone Dayton Gould Primary Care Provider + Encounter Details Date Type Department Care Team (Late st Contact Info) Description 09/12/2023 Procedure Pass [facility] [address] [place] [address] Social History Tobacco Use Types Packs/Day Years [...] Care Team (Late st Contact Info) Description 09/24/2025 8:15 AM EDT Office Visit [facility] [address] [place] [address] Radha Dewey, JAVID [address] [address] [email or web address] 09/20/2026 9:00 AM EDT Office Visit [facility] [address] [place] [address] Bernice Jacome [address] [facility], [address] [place] [address] [email or web address] documented as of this encounter Visit Diagnoses Not on filedocumented in this encounter Additional Health Concerns Infection Onset Date Last Indicated Resolved Time CoV-Risk Comment:Per note documentation 06/07/2024 06/07/2024 7:18 AM EST CoV-Risk Comment:Per note documentation 08/04/2024 08/04/2024 9:21 AM EST CDiff-Risk 08/04/2024 08/05/2024 08/05/2024 2:09 AM EST CoV-Risk 03/09/2025 03/09/2025 03/20/2025 1:21 AM EDT documented as of this encounter Care Teams Senior Electrical Designer Relationship Specialty Start Date End Date Dayton Gould PA [address] [place] [address] PCP - General 10/05/20 documented as of this encounter Additional Source Comments The information contained in this document represents components of the legal health record. It is not the complete legal health record.[facility]
--- OUTSIDE RECORDS SUMMARY | 2025-06-24 14:18 | XMS_ITS | Encounter Summary ---
Author Organization [facility] Address [address] [facility] [address] [place] [address] Phone Care Team Providers Care Doctor Of Naturopathic Medicine Name Role Phone Dayton Gould Primary Care Provider + Encounter Details Date Type Department Care Team (Late st Contact Info) Description 02/20/2025 Procedure Pass [facility], Ct Scan - [facility] [address] [place] [address] Social History Tobacco Use Types Packs/Day Years [...] Visit [facility] [address] [place] [address] Radha Dewey, JAVID [address] [address] [email or web address] 09/20/2026 9:00 AM EDT Office Visit [facility] [address] [place] [address] [place] [address] Bernice Jacome [address] [facility], [address] [place] [address] [email or web address] documented as of this encounter Visit Diagnoses Not on filedocumented in this encounter Additional Health Concerns Infection Onset Date Last Indicated Resolved Time CoV-Risk 03/09/2025 03/09/2025 03/20/2025 1:21 AM EDT documented as of this encounter Care Teams Doctor Of Naturopathic Medicine Relationship Specialty Start Date End Date Dayton Gould PA [address] [place] [address] PCP - General 10/05/20 documented as of this encounter Additional Source Comments The information contained in this document represents components of the legal health record. It is not the complete legal health record.[facility]
--- OUTSIDE RECORDS SUMMARY | 2025-06-24 14:18 | XMS_ITS | Encounter Summary ---
Author Organization [facility] Address [address] [place] [address] [place] [phone] Phone Care Team Providers Care Community Advocate Name Role Phone Dayton Gould Primary Care Provider + Encounter Details Date Type Department Care Team (Late st Contact Info) Description 12/15/2021 Procedure Pass [facility] Endoscopy Admitting Dept Virtual Department [address] [place] [address] Social History Tobacco Use Types Packs/Day Years [...] Description 09/24/2025 8:15 AM EDT Office Visit [facility] [address] [place] [address] aRdha Dewey, JAVID [address] [address] [email or web address] 09/20/2026 9:00 AM EDT Office Visit [facility] [address] [place] [address] [place] [address] Bernice Jacome [address], [address] [place] [address] [email or web address] documented as of this encounter Visit Diagnoses [...] documented as of this encounter Care Teams Community Advocate Relationship Specialty Start Date End Date Dayton Gould PA [address] [place] [address] PCP - General 10/05/20 documented as of this encounter Additional Source Comments The information contained in this document represents components of the legal health record. It is not the complete legal health record.[facility]
--- OUTSIDE RECORDS SUMMARY | 2025-06-24 14:18 | XMS_ITS | Patient Health Record ---
Author Organization [facility] Address [address] [place] [address] Care Team Providers Care Ingot Passer Name Role Phone Dayton Gould Primary Care Provider Unavailab Pilo Johnson Jr Unavailable [phone] Allergies No Known Allergies Reason For Referral No Information Medications Medication SIG (Take, Route, Frequency, Duration) Notes Start Date End Date Status Fenofibrate 160 MG Tablet Oral; Duration: 30 Active Mometasone Furoate 50 MCG/ACT Suspension Nasal; Duration: 30 Ac tive ALPRAZolam 1 MG Tablet (Schedule IV Drug ) TAKE 1 TABLET BY MOUTH EVERY DAY AT BEDTIME Oral; Duration: 30 Active Atorvastatin Calcium 40 MG Tablet Oral; Duration: 30 Active clonazePAM 1 MG Tablet Oral; Duration: 30 Active Immunizations Vaccine Route Administration Date Status Comme nts Influenza Unknown 02/21/2021 Administered Influenza Unknown 05/31/2022 Refused Social History Social History Drugs/Alcohol: Social Info Question Answer Notes Alcohol Screen Did you have a drink containing alcohol in the past year? No Points 0 Interpretation Negative Additional Details Category Social Info Options Details Miscellaneous: Marital status: Occupation: disabled Section Notes: Nonsmoker; no alcohol Problems Problem Type SNOMED Code ICD Code Onset Dates Problem Status W/U Status Risk Notes Problem Ileostomy present (014026556) Ileostomy status (Z93.2) Active confirmed Problem Ulcerative colitis (73609370) Ulcerative colitis without complications, unspecified location (K51.90) Active confirmed Problem Hypertriglyceridemia (859046463) Hypertriglyceridemia (E78.1) Active confirmed Problem Pancreatitis (65055626) Pancreatitis (K85.90) Active confirmed Problem Acute pancreatitis (533777962) Acute pancreatitis without infection or necrosis, unspecified pancreatitis type (K85.90) Active confirmed Problem Ulcerative colitis (08261820) Ulcerative colitis, unspecified (K51.90) Active confirmed Plan Of Treatment Pending Test Test Name Order Date LIVER PROFILE 05/31/2022 Triglycerides 05/31/2022 Lipase 05/31/2022 Next Appt Details Provider Name:Pilo child Jr, 07/30/2025 01:55:00 PM, [address] [place] [address], [address], [place], [address], Insurance Providers Payer Name Payer Address Payer Phone Subscriber Number Group Number Insured Name Patient Relationship to Insured Coverage Start Date Coverage End Date [facility] [employer] [facility] [address] [address] [place], [place] [id number] KAMARI DELEON Self - patient is the [...]
--- OUTSIDE RECORDS SUMMARY | 2025-06-24 14:18 | XMS_ITS | Encounter Summary ---
Author Organization [facility] Address [address] [place] [address] [place] [phone] Phone Care Team Providers Care Tungsten Refiner Name Role Phone Dayton Gould Primary Care Provider + Encounter Details Date Type Department Care Team (Late st Contact Info) Description 12/11/2021 Procedure Pass [facility], Ct Scan - [facility] [address] [place] [address] Social History Tobacco Use Types Packs/Day Years [...] Description 09/24/2025 8:15 AM EDT Office Visit [facility] [address] [place] [address] Radha Dewey, JAVID [address] [address] [email or web address] 09/20/2026 9:00 AM EDT Office Visit [facility] [address] [place] [address] Bernice Jacome [address] [facility], [address] [place] [address] [email or web address] documented as of this encounter Visit Diagnoses [...] documented as of this encounter Care Teams Tungsten Refiner Relationship Specialty Start Date End Date Dayton Gould PA [facility] [place] [address] PCP - General 10/05/20 documented as of this encounter Additional Source Comments The information contained in this document represents components of the legal health record. It is not the complete legal health record.[facility]
--- OUTSIDE RECORDS SUMMARY | 2025-06-24 14:18 | XMS_ITS | Encounter Summary ---
Author Organization [facility] Address [address] [place] [address] [place] [phone] Phone Care Team Providers Care Control Clerk Auditing Name Role Phone Dayton Gould Primary Care Provider + Encounter Details Date Type Department Care Team (Late st Contact Info) Description 12/14/2021 Procedure Pass [facility], [address] [address] Social History Tobacco Use Types Packs/Day Years [...] Description 09/24/2025 8:15 AM EDT Office Visit [facility] [address] [place] [address] Radha Dewey, JAVID [address] [address] [email or web address] 09/20/2026 9:00 AM EDT Office Visit [facility] [address] [place] [address] Bernice Jacome [address], [address] [place] [address] [email or web address] documented as of this encounter Visit Diagnoses [...] documented as of this encounter Care Teams Control Clerk Auditing Relationship Specialty Start Date End Date Dayton Gould PA [address] [place] [id number] PCP - General 10/05/20 documented as of this encounter Additional Source Comments The information contained in this document represents components of the legal health record. It is not the complete legal health record.[facility]
--- OUTSIDE RECORDS SUMMARY | 2025-06-24 14:18 | XMS_ITS | Encounter Summary ---
Author Organization [facility] Address [address] [facility] [address] [place] [address] Phone Care Team Providers Care Excavating Machine Operator Name Role Phone Dayton Gould Primary Care Provider + Encounter Details Date Type Department Care Team (Late st Contact Info) Description 07/29/2022 Procedure Pass [facility], Ct Scan - [address] [address] Social History Tobacco Use Types Packs/Day Years [...] Description 09/24/2025 8:15 AM EDT Office Visit [facility] [address] [place] [address] Radha Dewey, JAVID [address] [address] [email or web address] 09/20/2026 9:00 AM EDT Office Visit [facility] [address] [place] [address] Bernice Jacome [address], [address] [place] [address] [email or web address] documented as of this encounter Visit [...] documented as of this encounter Care Teams Excavating Machine Operator Relationship Specialty Start Date End Date Dayton Gould PA [address] [place] [id number] PCP - General 10/05/20 documented as of this encounter Additional Source Comments The information contained in this document represents components of the legal health record. It is not the complete legal health record.[facility]
--- OUTSIDE RECORDS SUMMARY | 2025-06-24 14:18 | XMS_ITS | Clinical Summary ---
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 180 tablet 4 Active clonazePAM (KLONOPIN) 1 MG tablet Take 1 mg by mouth daily as needed for anxiety. Active omega 8-gry-dpp-fish oil 1,000 (120-180) mg Cap Take 1 capsule by mouth daily. Active metoprolol succinate (TOPROL-XL) 25 MG 24 hr tablet Take 1 tablet (25 mg total) by mouth daily. 90 tablet 1 5 06/18/20 25 Discontinu ed(Stop Taking at Discharge) celecoxib (CELEBREX) 100 MG capsule Take 1 capsule (100 mg total) by mouth 2 (two) times a day. 14 capsule 5 06/18/20 25 Discontinu ed(Stop Taking at Discharge) dicyclomine (BENTYL) 10 MG capsule Take 1 capsule (10 mg total) by mouth 4 (four) times a day before meals and nightly. 20 capsule 06/18/20 25 Discontinu ed(Stop Taking at Discharge) Active Problems Problem Noted Date Diagnosed Date Elevated blood pressure reading 06/17/2025 Hyponatremia 06/16/2025 Hypocalcemia 06/16/2025 Left upper quadrant abdominal pain 06/15/2025 Acute recurrent pancreatitis 06/15/2025 Hypophosphatemia 06/09/2024 Acute pancreatitis without infection or necrosis 10/05/2020 [...] increase D5 NS infusion. Continue to monitor [id number] blood sugars with goals of eventually initiating [...] related pancreatitis and the last admitted to [facility] in September 2020 when triglyceride levels were greater than 4000 after stopping medication Was recently admitted to [facility] for recurrent pancreatitis. Was treated supportively and discharged home. He presented back to [facility] with recurrent abdominal pain, bloating, [...] low-fat diet today Regular GI is in [place] Dr. Bright Follow over the day and [...] x-ray, repeat lactate, IV fluids, follow closely Acute kidney injury 06/17/2023 03/01/20 24 Assessment [...] Encounters Date Type Department Care Team Description 06/16/2025 9:00 PM EST Ancillary Procedure [facility], Ultrasound - [address] [address] Boni Watkins, MOE 06/15/2025 6:01 PM EST - 06/18/2025 2:15 PM EST Hospital Encounter [facility] [address] [place] [address] Luz Marina Marina MD Lipkin-Moore, Zachary M, MD Dumont, Charles A, MD, MS Discharge Disposition: Home or Self Care 06/04/2025 Transcribe Orders [facility] [address] [place] [address] Belinda Marks MD 04/02/2025 9:33 PM EDT - 04/03/2025 4:11 AM EDT Emergency [facility] Emergency [address] [place] [address] Discharge Disposition: Home or Self Care 04/02/2025 Procedure Pass [facility], Ct Scan - [address] [address] from Last 3 Months Immunizations Immunization Administration Dates Next Due COVID-19 (Pre-04/23) Pfizer Vaccine, mRNA, PF INFLUENZA, SPLIT VIRUS, TRIVALENT PF 06/18/2025 Influenza Quadrivalent Preservative Free IM 05/02 Influenza [...] got money to buy more. Never True 06/15/2025 Within the past 6 months the food we bought just didn't last and we didn't have enough money to get more. Never True Residential Stability Answer Date Recor ded What is your housing situation today? I have marita sing 06/15/2025 How many times have you move d in the past 12 months? Zero (I did not move) 06/15/2025 Paying for Meds Answer Date Recorded Do you have trouble paying for medicines? No 06/15/2025 Paying Utility Bills Answer Date Record ed Do you have trouble paying your heating or elect ricity bill? No 06/15/2025 Transportation Answer Date Recorded Has the lack of transportati on kept you from medical appointments or from getting medications? No 06/15/2025 Digital Access Answer Date Recorded No 06/15/2025 Yes 06/15/2025 Do you have reliable internet access at home? Ye s 06/15/2025 Do you have a device (e.g., phone, tablet, computer) with a working camera? Yes 06/15/2025 Intimate Partner Violence Answer Date R ecorded Are you denied basic needs s uch as food, clothing, or medical care? No 06/15/2025 In the past 12 months have y ou been in a relationship with a person who hurts, threatens, or tries to control you? No 06/15/2025 Are you denied basic needs s uch as food, clothing, or medical care? No 06/15/2025 In the past 12 months have y ou been in a relationship with a person who hurts, threatens, or tries to control you? No 06/15/2025 Sex and Gender Information Value Date Recorded Sex Assigned at Male 10/05/2020 10:54 AM EDT Legal Sex Male 9:23 AM EDT Gender Identity Male 10/05/2020 10:54 AM EDT Sexual Orientation Straight 01/07/2024 11 :54 PM EDT Last Filed Vital Signs Vital Sign Reading Time Taken Comments Blood Pressure 145/97 06/18/2025 12:00 PM EST Pulse 83 06/18/2025 12:00 PM EST Temperature 36.9 C (98.4 F) 06/18/2025 11:00 AM EST Respiratory Rate 17 06/18/2025 12:00 PM EST Oxygen Saturation 97% 06/18/2025 12:00 PM EST Inhaled Oxygen Concentration - - Weight 98.6 kg (217 lb 6 oz) 06/15/2025 10:10 PM EST Height 180.3 cm (5' 11 ) 06/15/2025 4:27 PM EST Body Mass Index 30.32 06/15/2025 4:27 PM EST Plan of Treatment Upcoming Encounters Date Type Department Care Team (Late st Contact Info) Description 09/24/2025 8:15 AM EDT Office Visit [facility] [address] [place] [address] Radha Dewey, RAILRO[employer] D[employer]ING [employer] STEWARDESS [address] [place] [address] [email or web address] 09/20/2026 9:00 AM EDT Office Visit [facility] [address] [place] [address] Bernice Jacome [address] [place] [address], [address] [place] [address] [email or web address] Health Maintenance Due Date Last Done Comments DEPRESSION SCREENING 1992 SMOKING Hx and SMOKELESS TOBACCO SCREENING 1993 HEPATITIS C SCREENING 1998 HIV ONE-TIME SCREENING (18-65 YEARS) 1998 Adult Td,Tdap Booster 10/27/2024 10/27/2014 COVID-19 VACCINE ( season) 2025 11/01/2020 COLOGUARD 2025 COLONOSCOPY 2025 COLORECTAL CANCER SCREENING 2025 FIT TEST 2025 FOBT 2025 SIGMOIDOSCOPY 2025 VIRTUAL COLONOSCOPY 2025 SCREENING FOR DIABETES 06/18/2028 06/18/2025, 2023 LIPID PANEL 02/28/2029 02/29/2024, 04/0 01/2021, 10/06/2020, Additional history exists PNEUMOCOCCAL VACCINES (0-49 years) Aged Out 09/02/2015 No longer eligible based on patient's age to complete this topic INFLUENZA VACCINE Completed 06/18/2025, , 02/20/2017 HEPATITIS A VACCINES Aged Out No long [...] Procedure Name Priority Date/Time Associated Diagnosis Comments POCT GLUCOSE Routine 06/18/2025 11:32 AM EST LAB ADD-ON STAT 06/18/2025 8:19 AM EST POCT GLUCOSE Routine 06/18/2025 8:03 AM EST LIPASE Routine 06/18/2025 3:45 AM EST CBC AND DIFFERENTIAL Routine 06/18/2025 3:45 AM EST LFTS (HEPATIC PANEL) Routine 06/18/2025 3:45 AM EST CBC AND DIFFERENTIAL Routine 06/18/2025 3:45 AM EST TRIGLYCERIDES Routine 06/18/2025 3:45 AM EST PHOSPHORUS Routine 06/18/2025 3:45 AM EST MAGNESIUM Routine 06/18/2025 3:45 AM EST BASIC METABOLIC PANEL (BMP) Routine 06/18/2025 3:45 AM EST POCT GLUCOSE Routine 06/18/2025 3:44 AM EST POCT GLUCOSE Routine 06/18/2025 2:09 AM EST POCT GLUCOSE Routine 06/18/2025 1:00 AM EST TRIGLYCERIDES Timed 06/17/2025 10:45 PM EST PHOSPHORUS Routine 06/17/2025 10:45 PM EST MAGNESIUM Routine 06/17/2025 10:45 PM EST BASIC METABOLIC PANEL (BMP) Routine 06/17/2025 10:45 PM EST POCT GLUCOSE Routine 06/17/2025 10:17 PM EST POCT GLUCOSE Routine 06/17/2025 8:07 PM EST POCT GLUCOSE Routine 06/17/2025 6:18 PM EST POCT GLUCOSE Routine 06/17/2025 4:17 PM EST POCT GLUCOSE Routine 06/17/2025 1:59 PM EST TRIGLYCERIDES Timed 06/17/2025 12:06 PM EST PHOSPHORUS Routine 06/17/2025 12:06 PM EST MAGNESIUM Routine 06/17/2025 12:06 PM EST BASIC METABOLIC PANEL (BMP) Routine 06/17/2025 12:06 PM EST POCT GLUCOSE Routine 06/17/2025 11:58 AM EST POCT GLUCOSE Routine 06/17/2025 11:03 AM EST POCT GLUCOSE Routine 06/17/2025 10:00 AM EST POCT GLUCOSE Routine 06/17/2025 9:06 AM EST POCT GLUCOSE Routine 06/17/2025 8:10 AM EST POCT GLUCOSE Routine 06/17/2025 7:09 AM EST CBC AND DIFFERENTIAL Routine 06/17/2025 5:48 AM EST IONIZED CALCIUM Routine 06/17/2025 5:48 AM EST CBC AND DIFFERENTIAL Routine 06/17/2025 5:48 AM EST PHOSPHORUS Routine 06/17/2025 5:48 AM EST MAGNESIUM Routine 06/17/2025 5:48 AM EST BASIC METABOLIC PANEL (BMP) Routine 06/17/2025 5:48 AM EST POCT GLUCOSE Routine 06/17/2025 4:54 AM EST POCT GLUCOSE Routine 06/17/2025 3:58 AM EST POCT GLUCOSE Routine 06/17/2025 2:59 AM EST POCT GLUCOSE Routine 06/17/2025 2:11 AM EST POCT GLUCOSE Routine 06/17/2025 1:12 AM EST TRIGLYCERIDES Timed 06/16/2025 11:53 PM EST PHOSPHORUS Routine 06/16/2025 11:53 PM EST MAGNESIUM Routine 06/16/2025 11:53 PM EST BASIC METABOLIC PANEL (BMP) Routine 06/16/2025 11:53 PM EST POCT GLUCOSE Routine 06/16/2025 11:46 PM EST POCT GLUCOSE Routine 06/16/2025 10:21 PM EST POCT GLUCOSE Routine 06/16/2025 9:33 PM EST US BEDSIDE Routine 06/16/2025 8:58 PM EST Acute recurrent pancreatitis INSERT PERIPHERAL IV Routine 06/16/2025 8:57 PM EST Acute recurrent pancreatitis POCT GLUCOSE Routine 06/16/2025 8:36 PM EST POCT GLUCOSE Routine 06/16/2025 7:55 PM EST POCT GLUCOSE Routine 06/16/2025 6:54 PM EST POCT GLUCOSE Routine 06/16/2025 6:02 PM EST PHOSPHORUS Routine 06/16/2025 5:34 PM EST MAGNESIUM Routine 06/16/2025 5:34 PM EST BASIC METABOLIC PANEL (BMP) Routine 06/16/2025 5:34 PM EST POCT GLUCOSE Routine 06/16/2025 4:59 PM EST POCT GLUCOSE Routine 06/16/2025 3:56 PM EST POCT GLUCOSE Routine 06/16/2025 3:04 PM EST POCT GLUCOSE Routine 06/16/2025 1:58 PM EST POCT GLUCOSE Routine 06/16/2025 1:04 PM EST POCT GLUCOSE Routine 06/16/2025 11:53 AM EST IONIZED CALCIUM Timed 06/16/2025 11:39 AM EST TRIGLYCERIDES Timed 06/16/2025 11:39 AM EST PHOSPHORUS Routine 06/16/2025 11:39 AM EST MAGNESIUM Routine 06/16/2025 11:39 AM EST BASIC METABOLIC PANEL (BMP) Routine 06/16/2025 11:39 AM EST POCT GLUCOSE Routine 06/16/2025 11:00 AM EST POCT GLUCOSE Routine 06/16/2025 9:58 AM EST POCT GLUCOSE Routine 06/16/2025 9:06 AM EST INSERT PERIPHERAL IV STAT 06/16/2025 8:45 AM EST Left upper quadrant abdominal pain CBC Routine 06/16/2025 5:11 AM EST PHOSPHORUS Routine 06/16/2025 5:11 AM EST MAGNESIUM Routine 06/16/2025 5:11 AM EST BASIC METABOLIC PANEL (BMP) Routine 06/16/2025 5:11 AM EST POCT GLUCOSE Routine 06/16/2025 2:59 AM EST MRSA PCR SCREEN Routine 06/16/2025 12:55 AM EST POCT GLUCOSE Routine 06/16/2025 12:53 AM EST SODIUM, BLOOD GAS STAT 06/16/2025 12: 33 AM EST POTASSIUM (BLOOD GAS) STAT 06/16/2025 12:33 AM EST TRIGLYCERIDES Timed 06/15/2025 11:00 PM EST PHOSPHORUS Routine 06/15/2025 11:00 PM EST MAGNESIUM Routine 06/15/2025 11:00 PM EST BASIC METABOLIC PANEL (BMP) Routine 06/15/2025 11:00 PM EST POCT GLUCOSE Routine 06/15/2025 10:55 PM EST ECG 12-LEAD STAT 06/15/2025 7:43 PM EST POTASSIUM (BLOOD GAS) STAT 06/15/2025 7:18 PM EST LIPASE STAT 06/15/2025 6:19 PM EST LFTS (HEPATIC PANEL) STAT 06/15/2025 6:19 PM EST BASIC METABOLIC PANEL (BMP) STAT 06/15/2025 6:19 PM EST CBC AND DIFFERENTIAL STAT 06/15/2025 4:45 PM EST CBC AND DIFFERENTIAL STAT 06/15/2025 4:45 PM EST URINE SEDIMENT STAT 06/15/2025 4:42 PM EST URINALYSIS WITH REFLEX TO URINE CULTURE STAT 06/15/2025 4:[address] ABDOMEN/PELVIS WITH CONTRAST Routine 04/03/2025 12:29 AM EDT MAGNESIUM STAT 04/02/2025 11:09 PM EDT LIPASE STAT 04/02/2025 11:09 PM EDT LFTS (HEPATIC PANEL) STAT 04/02/2025 11:09 PM EDT BASIC METABOLIC PANEL (BMP) STAT 04/02/2025 11:09 PM EDT CBC AND DIFFERENTIAL STAT 04/02/2025 11:09 PM EDT LIPID PANEL STAT 02/29/2024 5:05 PM EDT from Last 3 Months or Most Recently Relevant to Health Maintenance Results * POCT Glucose (06/18/2025 11:32 AM EST) Only the most recent of40 resultswithin the time period is included. Glucose 99 70 - 99 mg/dL 06/18/2025 11:38 AM [facility] Blood (Blood) 06/18/2025 11: 32 AM EST 06/18/2025 11:38 AM EST us Rome Saleem MD, MS LAB POCT DOCKED DEVICE U NSOLICTED RESULTS Final Result [address] [address] * Lab Add-On (06/18/2025 8:19 AM EST) Specimen Date/Time 06/18/2025 8:32 AM EST [facility] Test Requested lipase 06/18/2025 8:32 AM [facility] Specimen Description 06/18/2025 8:32 AM [facility] Comments 06/18/2025 8:32 AM [facility] Was this request processed? Yes 06/18/2025 8:32 AM [facility] Other (Other) 06/18/2025 8:1 9 AM EST 06/18/2025 8:19 AM EST us Ubaldo Black [employer] LAB GENERAL ORDERABLES Fi nal Result [facility] [address] [place] [address] * (ABNORMAL) CBC and Differential (06/18/2025 3:45 AM EST) Only the most recent of3 resultswithin the time period is included. WBC 14.15(H) 4.00 - 11.00 K/uL 06/18/2025 4:28 AM [facility] RBC 4.53 4.50 - 5.90 M/uL 06/18/2025 4:28 AM [facility] Hemoglobin 11.6(L) 13.5 - 17.5 g/dL 06/18/2025 4:28 AM [facility] Hematocrit 35.8(L) 41.0 - 53.0 % 06/18/2025 4:28 AM [facility] MCV 79.0(L) 80.0 - 100.0 fL 06/18/2025 4:28 AM [facility] MCH 25.6(L) 27.0 - 31.0 pg 06/18/2025 4:28 AM [facility] MCHC 32.4 32.0 - 36.0 g/dL 06/18/2025 4:28 AM [facility] MPV 10.7 8.4 - 12.0 fL 06/18/2025 4:28 AM [facility] RDW-CV 13.8 11.5 - 14.5 % 06/18/2025 4:28 AM [facility] PLT 220 150 - 450 K/uL 06/18/2025 4:28 AM [facility] Neutrophils 69.3 % 06/18/2025 4:28 AM [facility] Lymphocytes 14.0 % 06/18/2025 4:28 AM [facility] Monocytes 9.3 % 06/18/2025 4:28 AM [facility] Eosinophils 6.7 % 06/18/2025 4:28 AM [facility] Basophils 0.2 % 06/18/2025 4:28 AM [facility] Imm Grans 0.5 % 06/18/2025 4:28 AM [facility] NRBC 0.0 <=0.0 /100 WBCs 06/18/2025 4:28 AM [facility] Absolute Neutrophils 9.80(H) 1.92 - 7.60 K/uL 06/18/2025 4:28 AM [facility] Absolute Lymphocytes 1.98 0.72 - 4.10 K/uL 06/18/2025 4:28 AM [facility] Absolute Monocytes 1.32(H) 0.16 - 1.10 K/uL 06/18/2025 4:28 AM [facility] Absolute Eosinophils 0.95(H) 0.00 - 0.50 K/uL 06/18/2025 4:28 AM [facility] Absolute Basophils 0.03 0.00 - 0.15 K/uL 06/18/2025 4:28 AM [facility] Absolute Imm Grans 0.07 0.00 - 0.09 K/uL 06/18/2025 4:28 AM [facility] Absolute NRBC 0.00 <=0.00 K cells/uL 06/18/2025 4:28 AM [facility] Absolute Neutrophils 9.80(H) 1.92 - 7.60 K/uL 06/18/2025 4:28 AM [facility] Comment:Automated cell count . Manual ANC may differ if performed. Diff Type Auto 06/18/2025 4:28 AM [facility] Blood (Blood) Venipuncture / Unknown 06/18/2025 3:45 AM EST 06/18/2025 4:15 AM EST us Srinivas Lam MD LAB BLOOD BKR ORDERABL ES Final Result [facility] [address] [place] [address] * (ABNORMAL) Hepatic Panel (LFTs) (06/18/2025 3:45 AM EST) Only the most recent of3 resultswithin the time period is included. AST 13 <40 U/L 06/18/2025 4:47 AM [facility] ALT 14 <50 U/L 06/18/2025 4:47 AM [facility] Alkaline Phosphatase 70 40 - 130 U/L 06/18/2025 4:47 AM [facility] Bilirubin, Total 0.6 0.0 - 1.2 mg/dL 06/18/2025 4:47 AM [facility] Bilirubin, Direct 0.2 0.0 - 0.3 mg/dL 06/18/2025 4:47 AM [facility] Total Protein 6.3(L) 6.4 - 8.3 g/dL 06/18/2025 4:47 AM [facility] Albumin 3.3(L) 3.5 - 5.2 g/dL 06/18/2025 4:47 AM [facility] Globulin 3.0 1.9 - 4.1 g/dL 06/18/2025 4:47 AM [facility] Blood (Blood) Venipuncture / Unknown 06/18/2025 3:45 AM EST 06/18/2025 4:14 AM EST us Srinivas Lam MD LAB BLOOD BKR ORDERABL ES Final Result Performing Organization Address [facility]/State/[facility] Co de Phone Number [address] [address] * (ABNORMAL) Triglycerides (06/18/2025 3:45 AM EST) Only the most recent of6 resultswithin the time period is included. Triglycerides 492(H) <=150 mg/dL 06/18/2025 4:47 AM [facility] Blood (Blood) Venipuncture / Unknown 06/18/2025 3:45 AM EST 06/18/2025 4:14 AM EST us Srinivas Lam MD LAB BLOOD BKR ORDERABL ES Final Result [address] [address] * Phosphorus (06/18/2025 3:45 AM EST) Only the most recent of9 resultswithin the time period is included. Phosphorus 2.5 2.5 - 4.5 mg/dL 06/18/2025 4:47 AM EST [facility] Blood (Blood) Venipuncture / Unknown 06/18/2025 3:45 AM EST 06/18/2025 4:14 AM EST us Srinivas Lam MD LAB BLOOD BKR ORDERABL ES Final Result Performing Organization Address [facility] de Phone Number [address] [address] * Magnesium (06/18/2025 3:45 AM EST) Only the most recent of10 resultswithin the time period is included. Magnesium 2.1 1.7 - 2.6 mg/dL 06/18/2025 4:47 AM EST [facility] Blood (Blood) Venipuncture / Unknown 06/18/2025 3:45 AM EST 06/18/2025 4:14 AM EST us Srinivas Lam MD LAB BLOOD BKR ORDERABL ES Final Result Performing Organization Address [facility] de Phone Number [address] [address] * (ABNORMAL) Lipase (06/18/2025 3:45 AM EST) Only the most recent of3 resultswithin the time period is included. Lipase 132(H) 13 - 60 U/L 06/18/2025 8:44 AM EST [facility] Blood (Blood) Venipuncture / Unknown 06/18/2025 3:45 AM EST 06/18/2025 4:14 AM EST us Ubaldo Black CNP LAB BLOOD BKR ORDERABLES Final Result Performing Organization Address City/[facility]/ZIP Co de Phone Number [address] [address] * (ABNORMAL) Basic Metabolic Panel (BMP) (06/18/2025 3:45 AM EST) Only the most recent of11 resultswithin the time period is included. Sodium 133(L) 136 - 145 mmol/L 06/18/2025 4:47 AM [facility] Potassium 4.1 3.4 - 5.1 mmol/L 06/18/2025 4:47 AM [facility] Chloride 102 98 - 107 mmol/L 06/18/2025 4:47 AM [facility] CO2 21 20 - 31 mmol/L 06/18/2025 4:47 AM [facility] BUN 2(L) 6 - 23 mg/dL 06/18/2025 4:47 AM [facility] Creatinine 0.70 0.60 - 1.30 mg/dL 06/18/2025 4:47 AM [facility] Glucose 106(H) 70 - 99 mg/dL 06/18/2025 4:47 AM [facility] Calcium 8.7 8.5 - 10.5 mg/dL 06/18/2025 4:47 AM [facility] eGFR 116 >59 mL/min/1.7 3m2 06/18/2025 4:47 AM [facility] Comment:Estimated glomerular filtration rate calculated using the CKD-EPI refit equation. Anion Gap 10 3 - 17 mmol/L 06/18/2025 4:47 AM [facility] Blood (Blood) Venipuncture / Unknown 06/18/2025 3:45 AM EST 06/18/2025 4:14 AM EST us Srinivas Lam MD LAB BLOOD BKR ORDERABL ES Final Result Performing Organization Address City/[facility]/ZIP Co de Phone Number [address] [address] * (ABNORMAL) Ionized Calcium (06/17/2025 5:48 AM EST) Only the most recent of2 resultswithin the time period is included. Ionized Calcium 1.13(L) 1.14 - 1.30 mmol/L 06/17/2025 6:16 AM EST [facility] Blood (Blood, Venous) Venipuncture / Unknown 06/17/2025 5:48 AM EST 06/17/2025 6:03 AM EST us Srinivas Lam MD LAB BLOOD BKR ORDERABL ES Final Result [address] [address] * US BEDSIDE (06/16/2025 8:58 PM EST) Anatomical Region Laterality Modality Ultrasound Narrative 06/16/2025 8:58 PM EST Boni Watkins NP 06/16/2025 8:58 PM Bedside Ultrasound Date/Time: 06/16/2025 8:58 PM Performed by: Boni Watkins NP Authorized by: Boni Watkins NP Exam Type: Procedural Guidance Procedural Guidance: Indication: Procedural Guidance Bedside Ultrasound was used to perform Peripheral IV Placement. Please see separately documented procedure note to see details of procedure. Accession Number: [id number] us Boni Watkins NP IMG POINT OF CARE EXAMS Final Re sult * Insert Peripheral IV Under US Guidance (06/16/2025 8:57 PM EST) Only the most recent of2 resultswithin the time period is included. Narrative Boni Watkins NP - 06/16/2025 8:57 PM EST Boni Watkins NP 06/16/2025 8:58 PM Insert Peripheral IV Under US Guidance Date/Time: 06/16/2025 8:57 PM Performed by: Boni Watkins NP Authorized by: Boni Watkins NP Indications: Indications: Vascular access Local anesthesia used?: No Procedure details: Preparation: Skin prepped with alcohol Skin prep agent dried: Skin prep agent completely dried prior to procedure Location: Right upper extremity IV size: 18 Ultrasound guidance: dynamic Number of attempts: 1 Successful placement: Yes Post-procedure: Post-procedure: Dressing applied Assessment: Blood return Patient tolerance: Patient tolerated the procedure well with no immediate complications Routine venipuncture: No. Physician/QHP Skill Required: Yes. Rationale: Previous unsuccessful attempts at routine venipuncture. Images: Images saved: Yes us Boni Watkins NP IV THERAPY ORDERABLES Final Resu lt * (ABNORMAL) CBC (06/16/2025 5:11 AM [facility]) WBC 16.17(H) 4.00 - 11.00 K/uL 06/16/2025 5:40 AM [facility] RBC 5.02 4.50 - 5.90 M/uL 06/16/2025 5:40 AM [facility] Hemoglobin 13.4(L) 13.5 - 17.5 g/dL 06/16/2025 5:40 AM [facility] Hematocrit 39.2(L) 41.0 - 53.0 % 06/16/2025 5:40 AM [facility] MCV 78.1(L) 80.0 - 100.0 fL 06/16/2025 5:40 AM [facility] MCH 26.7(L) 27.0 - 31.0 pg 06/16/2025 5:40 AM [facility] MCHC 34.2 32.0 - 36.0 g/dL 06/16/2025 5:40 AM [facility] PLT 266 150 - 450 K/uL 06/16/2025 5:40 AM [facility] MPV 9.6 8.4 - 12.0 fL 06/16/2025 5:40 AM [facility] RDW-CV 13.3 11.5 - 14.5 % 06/16/2025 5:40 AM [facility] Absolute NRBC 0.00 <=0.00 K cells/uL 06/16/2025 5:40 AM [facility] NRBC 0.0 <=0.0 /100 WBCs 06/16/2025 5:40 AM [facility] Blood (Blood) Venipuncture / Unknown 06/16/2025 5:11 AM EST 06/16/2025 5:32 AM EST us Marilyn Giles PA-C LAB BLOOD BKR ORDERABLE S Final Result Performing Organization Address [facility]/ZIP Co de Phone Number [address] [address] * MRSA NASAL SCREEN, PCR (06/16/2025 12:55 AM EST) MRSA PCR Screen Negative for MRSA Negative for MRSA 06/16/2025 2:39 AM EST [facility] Swab (Anterior Nares) Non-Blood Collection / Unknown 06/16/2025 12:55 AM EST 06/16/2025 1:08 AM EST us Marilyn Giles PA-C LAB GENERAL ORDERABLES Final Result Performing Organization Address [facility]/ZIP Co de Phone Number [address] [address] * Sodium, Whole Blood (06/16/2025 12:33 AM EST) Sodium, Whole Blood 137 136 - 145 mmol/L 06/16/2025 12:41 AM EST [facility] Blood (Blood, Venous) Venipuncture / Unknown 06/16/2025 12:33 AM EST 06/16/2025 12:35 AM EST us Marilyn Giles PA-C LAB BLOOD BKR ORDERABLE S Final Result Performing Organization Address City/[facility]/ZIP Co de Phone Number [address] [address] * POTASSIUM, WHOLE BLOOD (06/16/2025 12:33 AM EST) Only the most recent of2 resultswithin the time period is included. Potassium, Whole Blood 4.7 3.4 - 5.1 mmol/L 06/16/2025 12:41 AM EST [facility] Blood (Blood, Venous) Venipuncture / Unknown 06/16/2025 12:33 AM EST 06/16/2025 12:35 AM EST us Marilyn Giles PA-C LAB BLOOD BKR ORDERABLE S Final Result Performing Organization Address [facility] Co de Phone Number [address] [address] * ECG 12-LEAD (06/15/2025 7:43 PM EST) Ventricular Rate EKG/MIN 75 BPM [facility] Atrial Rate 75 BPM [facility] LA Interval 158 ms [facility] QRS Duration 88 ms [facility] QT Interval 402 ms [facility] QTC Interval 448 ms [facility] P [place] 35 degrees [facility] R Wave [place] 17 degrees [facility] T Wave [place] -6 degrees [facility] 06/15/2025 7:43 PM EST 06/16/2025 2:57 PM EST Narrative [facility] - 06/16/2025 2:57 PM EST Normal sinus rhythm Normal ECG When compared with ECG of 19-Feb-2025 21:27, No significant change was found Confirmed by Sherif Rogers ([id number]) on 06/16/2025 2:57:43 PM us Luz Marina Rajput MD ECG ORDERABLES Final Resul t Performing Organization Address City/[facility]/ZIP Co de Phone Number [facility] * (ABNORMAL) Urinalysis with Reflex to Urine Culture (06/15/2025 4:42 PM EST) Color Yellow Yellow 06/15/2025 4:57 PM EST [facility] Clarity Clear Clear 06/15/2025 4:57 PM EST [facility] Glucose Negative Negative 06/15/2025 4:57 PM EST [facility] Bilirubin Urine Negative Negative 4:57 PM EST [facility] Ketone Urine Negative Negative 06/15/2025 4:57 PM EST [facility] Specific [place] >=1.030 1.001 - 1.035 06/15/2025 4:57 PM [facility] Blood 1+(A) Negative 06/15/2025 4:57 PM [facility] pH 5.5 5.0 - 8.0 06/15/2025 4:57 PM [facility] Protein Negative Negative 06/15/2025 4:57 PM [facility] Nitrites Negative Negative 06/15/2025 4:57 PM [facility] Leukocyte Esterase Negative Negative 06/15/2025 4:57 PM [facility] Urobilinogen Negative Negative 06/15/2025 4:57 PM [facility] Urine (Urine, Voided) Non-Blood Collection / Unknown 06/15/2025 4:42 PM EST 06/15/2025 4:45 PM EST Luz Marina Rajput MD LAB URINE ORDERABLES Final Result Performing Organization Address [facility] Co de Phone Number [address] [address] * (ABNORMAL) URINE SEDIMENT (06/15/2025 4:42 PM EST) WBC 3-5 0 - 9 /hpf 06/15/2025 5:20 PM [facility] RBC 3-5(A) 0 - 2 /hpf 06/15/2025 5:20 PM [facility] Squamous Epithelial Cells 1-2(A) Not Present /hpf 06/15/2025 5:20 PM [facility] Mucus Present(A ) Not Present /hpf 06/15/2025 5:20 PM [facility] Urine (Urine, Voided) Non-Blood Collection / Unknown 06/15/2025 4:42 PM EST 06/15/2025 4:45 PM EST Luz Marina Rajput MD LAB URINE ORDERABLES Final Result Performing Organization Address City/[facility]/ZIP Co de Phone Number [address] [address] * CT ABDOMEN/PELVIS WITH CONTRAST (04/03/2025 12:29 [...] IMG CT ABD/PELVIS Final Res ult * (ABNORMAL) CBC and differential (04/02/2025 11:09 PM EDT) WBC 8.50 4.00 - 11.00 K/uL [facility] RBC 4.83 4.50 - 5.90 M/uL [facility] HGB 12.9(L) 13.5 - 17.5 g/dL [facility] HCT 37.4(L) 41.0 - 53.0 % [facility] PLT 363 150 - 450 K/uL [facility] MCV 77.4(L) 80.0 - 100.0 fL [facility] MCH 26.7(L) 27.0 - 31.0 pg [facility] MCHC 34.5 32.0 - 36.0 g/dL [facility] RDW 12.6 11.5 - 14.5 % [facility] MPV 8.9 8.4 - 12.0 fL [facility] NRBC 0.00 0.00 /100 WBCs [facility] ABSOLUTE NRBC 0.00 0.00 K/uL [facility] DIFF METHOD Auto [facility] NEUTS 37.4(L) 48.0 - 76.0 % [facility] LYMPHS 47.4(H) 18.0 - 41.0 % [facility] MONOS 8.1 4.0 - 11.0 % [facility] EOS 6.2(H) 0.0 - 5.0 % [facility] BASOS 0.7 0.0 - 1.5 % [facility] Granulocytes, immature (%) 0.2 0.0 - 0.9 % [facility] ABSOLUTE NEUTS 3.17 1.92 - 7.60 K/uL [facility] ABSOLUTE LYMPHS 4.03 0.72 - 4.10 K/uL [facility] ABSOLUTE MONOS 0.69 0.16 - 1.10 K/uL [facility] ABSOLUTE EOS 0.53(H) 0.00 - 0.50 K/uL [facility] ABSOLUTE BASOS 0.06 0.00 - 0.15 K/uL [facility] Granulocytes, immature 0.02 0.00 - 0.09 K/uL [facility] Blood 04/02/2025 11:0 9 PM EDT 04/02/2025 11:11 PM EDT us Henna Morales PA-C LAB BLOOD BKR ORDERABLES Fi nal Result [address] [address] * (ABNORMAL) Lipid panel (02/29/2024 5:05 PM EDT) HDL 21 mg/dL [facility] Comment: Interpretation <40 mg/dL: Low HDL cholesterol (major risk factor for CHD) Greater than or equal to 60 mg/dL: High HDL cholesterol ( negative risk factor for CHD) HDL - cholesterol is affected by a number of factors, e.g. smoking, excerise, hormones, sex and age. CHOLESTEROL 764(H) 0 - 240 mg/dL [facility] TRIGLYCERIDES 3,858(H) 30 - 160 mg/dL [facility] LDL NOT CALCULATED 50 - 129 mg/dL [facility] Comment: Unable to calculate due to elevated TRIG of greater than 400. A measured LDL will be performed. CARDIAC RISK RATIO 36.4(H) 3.4 - 5.0 [facility] Blood 02/29/2024 5:05 PM EDT 02/29/2024 5:07 PM EDT us Alexander Foster PA-C LAB BLOOD BKR ORDERABLES Marie olivares Result [facility] [address] [place] [address] from Last 3 Months or Most Recently Relevant to Health Maintenance Insurance [facility] Advance Directives For more information, please contact: [phone] (9AM - 5PM [facility], Sunday-Sunday) Documents on File Type Date Recorded Patient Laserist Expl anation Healthcare Proxy 03/11/2024 4:11 PM * Full Code (Latest Code Status on File) Date Activated Date Inactivated Comments 06/15/2025 10:46 PM Question Answer Comments Code Status Confirmed With: Patient * Full Code Date Activated Date Inactivated Comments 08/04/2024 5:57 PM 06/15/2025 10:46 PM Question Answer Comments Code Status Confirmed [...] Answer Comments Code Status Confirmed With: Patient Care Teams Relay Shop Supervisor Relationship Specialty Start Date End Date Dayton Gould PA [address] [place] [address] PCP - General 10/05/20 Additional Source Comments The information contained in this document represents components of the legal health record. It is not the complete legal health record.[facility]
--- OUTSIDE RECORDS SUMMARY | 2025-06-24 14:18 | XMS_ITS | Encounter Summary ---
Author Organization [facility] Address [address] [facility] [address] [place] [address] Phone Care Team Providers Care Glass Mould Cleaner Name Role Phone Dayton Gould Primary Care Provider + Encounter Details Date Type Department Care Team (Late st Contact Info) Description 03/10/2025 Procedure Pass , Ct Scan - [facility] [address] [place] [address] Social History Tobacco Use Types Packs/Day Years [...] Description 09/24/2025 8:15 AM EDT Office Visit [facility] [address] [place] [address] Radha Dewey, JAVID [address] [address] [email or web address] 09/20/2026 9:00 AM EDT Office Visit [facility] [address] [place] [address] [place] [address] Bernice Jacome [address] [facility], [address] [place] [address] [email or web address] documented as of this encounter Visit Diagnoses Not on filedocumented in this encounter Additional Health Concerns Infection Onset Date Last Indicated Resolved Time CoV-Risk 03/09/2025 03/09/2025 03/20/2025 1:21 AM EDT documented as of this encounter Care Teams Glass Mould Cleaner Relationship Specialty Start Date End Date Dayton Gould PA [address] [place] [id number] PCP - General 10/05/20 documented as of this encounter Additional Source Comments The information contained in this document represents components of the legal health record. It is not the complete legal health record.[facility]
--- OUTSIDE RECORDS SUMMARY | 2025-06-24 14:18 | XMS_ITS | Encounter Summary ---
Author Organization [facility] Address [address] [facility] [address] [place] [address] Phone Care Team Providers Care Any Commodity Sales Deliverer Name Role Phone Dayton Gould Primary Care Provider + Encounter Details Date Type Department Care Team (Late st Contact Info) Description 06/16/2023 Procedure Pass [facility], Ct Scan - [address] [address] Social History Tobacco Use Types Packs/Day Years [...] Description 09/24/2025 8:15 AM EDT Office Visit [facility] [address] [place] [address] Radha Dewey, JAVID [address] [address] [email or web address] 09/20/2026 9:00 AM EDT Office Visit [facility] [address] [place] [address] Bernice Jacome 22 [facility], [address] [place] [address] [email or web address] documented as of this encounter Visit [...] documented as of this encounter Care Teams Any Commodity Sales Deliverer Relationship Specialty Start Date End Date Dayton Gould PA [address] [place] [address] PCP - General 10/05/20 documented as of this encounter Additional Source Comments The information contained in this document represents components of the legal health record. It is not the complete legal health record.[facility]
--- OUTSIDE RECORDS SUMMARY | 2025-06-24 14:19 | XMS_ITS | Encounter Summary ---
Author Organization [facility] Address [address] [facility] [address] [place] [address] Phone Care Team Providers Care Mail Agent Name Role Phone Dayton Gould Primary Care Provider + Encounter Details Date Type Department Care Team (Late st Contact Info) Description 04/02/2025 Procedure Pass [facility], Ct Scan - [facility] [address] [place] [address] Social History Tobacco Use Types Packs/Day Years [...] [facility] [address] [place] [address] Radha Dewey, JAVID [address] [address] [email or web address] 09/20/2026 9:00 AM EDT Office Visit [facility] [address] [place] [address] [place] [address] Bernice Jacome 22 [facility], [address] [place] [address] [email or web address] documented as of this encounter Visit Diagnoses Not on filedocumented in this encounter Care Teams Mail Agent Relationship Specialty Start Date End Date Dayton Gould PA [address] [place] [address] PCP - General 10/05/20 documented as of this encounter Additional Source Comments The information contained in this document represents components of the legal health record. It is not the complete legal health record.[facility]
--- OUTSIDE RECORDS SUMMARY | 2025-06-24 14:19 | XMS_ITS | Encounter Summary ---
Author Organization [facility] Address [address] [facility] [address] [place] [address] Phone Care Team Providers Care Glass Calibrator Name Role Phone Dayton Gould Primary Care Provider + Encounter Details Date Type Department Care Team (Late st Contact Info) Description 08/24/2024 Procedure Pass [facility], [facility] Scan - [facility] [address] [place] [address] Social History Tobacco Use Types Packs/Day Years [...] Description 09/24/2025 8:15 AM EDT Office Visit [facility] [address] [place] [address] Radha Dewey, JAVID [address] [address] [email or web address] 09/20/2026 9:00 AM EDT Office Visit [facility] [address] [place] [address] [place] [address] Bernice Jacome 22 [facility], [address] [place] [address] [email or web address] documented as of this encounter Visit Diagnoses Not on filedocumented in this encounter Additional Health Concerns Infection Onset Date Last Indicated Resolved Time CoV-Risk 03/09/2025 03/09/2025 03/20/2025 1:21 AM EDT documented as of this encounter Care Teams Glass Calibrator Relationship Specialty Start Date End Date Dayton Gould PA [address] [place] [address] PCP - General 10/05/20 documented as of this encounter Additional Source Comments The information contained in this document represents components of the legal health record. It is not the complete legal health record.[facility]
--- OUTSIDE RECORDS SUMMARY | 2025-06-24 14:19 | XMS_ITS | Encounter Summary ---
Author Organization [facility] Address [address] [place] [address] Phone Care Team Providers Care Control Clerk Auditing Name Role Phone Dayton Gould Primary Care Provider + Encounter Details Date Type Department Care Team (Late st Contact Info) Description 06/09/2024 Procedure Pass [facility], Ct Scan - [facility] [address] [place] [address] Social History Tobacco Use Types Packs/Day Years [...] Description 09/24/2025 8:15 AM EDT Office Visit [facility] 10 [place] [address] Radha Dewey CNP [address] [address] [email or web address] 09/20/2026 9:00 AM EDT Office Visit [facility] [address] [place] [address] Bernice Jacome 22 [facility], [address] [place] [address] [email or web address] documented as of this encounter [...] Date End Date Dayton Gould PA [address] [place] [address] PCP - General 10/05/20 documented as of this encounter Additional Source Comments The information contained in this document represents components of the legal health record. It is not the complete legal health record.[facility]
--- OUTSIDE RECORDS SUMMARY | 2025-06-24 14:19 | XMS_ITS | Encounter Summary ---
Author Organization [facility] Address [address] [place] [address] Phone Care Team Providers Care Customer Service Professional Name Role Phone Dayton Gould Primary Care Provider + Encounter Details Date Type Department Care Team (Late st Contact Info) Description 06/07/2024 Procedure Pass [facility], Ct Scan - [facility] [address] [place] [address] Social History Tobacco Use Types Packs/Day Years [...] Description 09/24/2025 8:15 AM EDT Office Visit [facility] 10 [place] [address] Radha Dewey CNP [address] [address] [email or web address] 09/20/2026 9:00 AM EDT Office Visit [facility] [address] [place] [address] [address] [facility], [address] [place] [address] [email or web address] documented as of this encounter [...] documented as of this encounter Care Teams Customer Service Professional Relationship Specialty Start Date End Date Dayton Gould PA [address] [place] [address] PCP - General 10/05/20 documented as of this encounter Additional Source Comments The information contained in this document represents components of the legal health record. It is not the complete legal health record.[facility]
== END 2025-06-24 15:04 | disposition home or self-care (01) ==
LOC: HO.HMCH 14:16
PROVIDERS: PCP Physician Assistant; Visit Provider Internal Medicine
DX: M25.531 Pain in right wrist (principal); K85.80 Other acute pancreatitis without necrosis or infection; K51.914 Ulcerative colitis, unspecified with abscess